=== PATIENT | male | born 1965 | race Caucasian/White ===

== ENCOUNTER → 2017-07-29 | Outpatient (CLI) | payer MEDICARE, BC ==
[2017-07-29 13:35] LABS: Appearance,Urine Clear (Clear); Bilirubin,Urine Negative (Negative); Blood,Urine Negative (Negative); Color,Urine Yellow; Glucose,Urine (UA) 4+ (Negative); HCT 41.9 % (39.0-53.0); HGB 13.8 gm/dL (13.0-17.5); Ketones,Urine Negative (Negative); Leukocyte Esterase,Urine Negative (Negative); MCH 27.5 pg (25.0-35.0); MCV 83.3 fL (80.0-100.0); Mean Platelet Volume 7.1; Nitrite,Urine Negative (Negative); PH, Urine 5.5 (5.0-8.0); Platelet Count 468 k/uL (150-450); Protein,Urine Negative (Negative); RBC 5.03 m/uL (4.30-5.90); RDW 15.4 % (11.5-15.5); Specific Gravity,Urine 1.017 (1.001-1.035); Urobilinogen,Urine <2.0 mg/dL (<2.0); WBC 6.7 k/uL (3.8-10.6)
[2017-07-29 13:54] LABS: Eosinophils # (M) 0.27 k/uL (0-0.7); Lymphocytes # (M) 2.95 k/uL (1.0-4.8); Monocytes # (M) 0.87 k/uL (0-1.0); Neutrophils # (M) 2.61 k/uL (1.3-7.7); Neutrophils % (M) 39 %; Nucleated Red Blood Cells 0 /100 WBC (0-0); Total Cells Counted 100
[2017-07-29 13:58] LABS: Anion Gap 10 mmol/L; Blood Urea Nitrogen 13 mg/dL (9-20); Carbon Dioxide 32 mmol/L (22-30); Chloride 101 mmol/L (98-107); Glucose 162 mg/dL (74-99); Potassium 4.6 mmol/L (3.5-5.1); Sodium 143 mmol/L (137-145)
== END ==
LOC: LABPAT 12:41
PROVIDERS: ATTEND Surgery
DX: Z01.812 Encounter for preprocedural laboratory examination (principal); I73.9 Peripheral vascular disease, unspecified
CPT/HCPCS: 36415; 80051; 81003; 82565; 82947; 84520; 85025

== ENCOUNTER 2017-08-11 07:40 | Day surgery (SDC) | payer MEDICARE, BC ==
[2017-08-10 10:37] VITALS: BMI 32.6
[~2017-08-11 07:40] MED LIST: ALPRAZolam 0.25 MG TAB PO PRN; ASPIRIN 325 MG TAB PO STA
[2017-08-11 08:19] VITALS: TEMP 97.9
[2017-08-11 08:32] LABS: Glucose,Whole Blood 167 mg/dL (75-99)
[2017-08-11] MEDS ORDERED: IV FLUID CONTINUATION 1,000 ML IV ONE (08:48)
--- NOTE | 2017-08-11 08:48 | P.HPIHPCON ---
History of Present Illness H&P Date: 08/11/17 Chief Complaint: Bilateral lower extremity pain 51-year-old gentleman initially presented to my office with complaints of bilateral lower extremity pain with ambulation. States she can only walk approximately 100 feet before getting severe pain in both calf areas. He denies any rest pain. He underwent arterial Doppler with ABIs which were 0.5 on the right and 0.38 on the left. He presents today for aortogram with runoff. He denies any fevers, chills, chest pain or shortness of breath. Consent for Procedure: I have explained the operation/procedure to the patient, including the risks, benefits, side effects, alternative therapies (including not receiving the proposed treatment or service), the likelihood of the patient achieving his/her goals, and potential recuperation problems for the procedure/sedation/analgesia , as well as any blood products, if indicated. I also explained to the patient the risks, benefits and side effects of the alternatives, as well as the risks related to not receiving the proposed procedure, care, treatment, or services. - Review of Systems Comment: Negative unless mentioned in HPI past medical history. Past Medical History Past Medical History: Asthma, Coronary Artery Disease (CAD), Cancer, Chest Pain / Angina, Diabetes Mellitus, Hyperlipidemia, Hypertension, Osteoarthritis (OA), Pneumonia, Sleep Apnea/CPAP/BIPAP, Thyroid Disorder, Vascular Disorder Additional Past Medical History / Comment(s): CML-chronic anemia, immmunosuppressed, not using CPAP, carpal tunnel bilaterally, previous toe on each foot fx.He has chronic dry mucosa from the kgipp-hseaba-qbul disease especially of the eyes and oral cavity. This necessitated the utilization special contacts and removal of his teeth. History of Any Multi-Drug Resistant Organisms: None Reported Past Surgical History: Heart Catheterization With Stent, Joint Replacement Additional Past Surgical History / Comment(s): BONE MARROW TRANSPLANT 2007, L KNEE scope & REPLACEMENT, SEPTAL SURG, BMTs bilateral ears, hemorrhoidectomy, colonoscopy, vasectomy Past Anesthesia/Blood Transfusion Reactions: No Reported Reaction Additional Past Anesthesia/Blood Transfusion Reaction / Comment(s): Pt has received blood without reaction. Date of Last Stent Placement:: 2007 Smoking Status: Former smoker - Past Family History Father Family Medical History: Coronary Artery Disease (CAD) Additional Family Medical History / Comment(s): Father had triple bypass. He committed suicide. Mother Family Medical History: Dementia Additional Family Medical History / Comment(s): Mother at age 72yrs. Medications and Allergies Home Medications Medication Instructions Recorded Confirmed Type Aspirin 81 mg PO DAILY 10/27/13 08/11/17 History Fenofibrate Nanocrystallized 145 mg PO HS 10/27/13 08/10/17 History [Tricor] lamoTRIgine [LaMICtal] 25 mg PO HS 10/27/13 08/10/17 History metFORMIN HCL 1,000 mg PO BID 10/27/13 08/11/17 History Atorvastatin [Lipitor] 40 mg PO HS 08/10/17 08/10/17 History Insulin Glargine/Lixisenatide 48 units SQ QAM 08/10/17 08/11/17 History [Soliqua 100 Unit-33 Mcg/ml Pen] rOPINIRole HCL [Requip] 0.5 mg PO HS 08/10/17 08/10/17 History Allergies Allergy/AdvReac Type Severity Reaction Status Date / Time Penicillins Allergy Unknown Verified 08/10/17 10:31 Childhood Surgical - Exam Vital Signs Temp Pulse Resp BP Pulse Ox 97.9 F 85 20 128/62 96 08/11/17 08:10 08/11/17 08:10 08/11/17 08:10 08/11/17 08:10 08/11/17 08:10 - General well developed, well nourished, no distress - Eyes normal ocular movement - ENT normal pinna, no congestion - Neck no masses, no bruits - Respiratory normal expansion - Cardiovascular Rhythm: regular - Abdomen Abdomen: soft, non tender - Integumentary no rash - Neurologic normal coordination - Musculoskeletal normal posture - Psychiatric oriented to time, oriented to person, oriented to place, speech is normal Palpable femoral pulses bilaterally. Nonpalpable DP, PT pulses bilaterally. Results - Labs Abnormal Lab Results - Last 24 Hours (Table) 08/11/17 Range/Units 08:24 POC Glucose (mg/dL) 167 H (75-99) mg/dL Assessment and Plan Assessment: Bilateral lower extremity disabling claudication Cordell classification 3 Plan: Aortogram with runoff Time with Patient: Less than 30
[2017-08-11] MEDS: MIDAZOLAM 2 MG/2 ML VIAL IV ONE ×2 (08:57→09:07)
[2017-08-11] MEDS ORDERED: fentaNYL (PF) 50 MCG/ML 2 ML AMP IV ONE (09:00)
[2017-08-11] MEDS ORDERED: LIDOCAINE 2% INJ 20 MG/ML SQ ONE ×2 (09:01→09:03)
[2017-08-11] MEDS ORDERED: IOPAMIDOL-250 100ML BTL INTRAARTER ONE (09:19)
--- NOTE | 2017-08-11 09:39 | P.OP ---
Date of Procedure: 08/11/17 Preoperative Diagnosis: Bilateral lower extremity disabling claudication Johnson classification 3 Postoperative Diagnosis: Right superficial femoral artery focal occlusion. 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 Procedure(s) Performed: Aortogram with bilateral lower extremity runoff via the right common femoral artery. Right common femoral artery access under ultrasound guidance. Anesthesia: local, other (Moderate sedation with fentanyl and Versed.) Surgeon: Alber Fall Estimated Blood Loss (ml): 5 Pathology: none sent Condition: stable Disposition: same day Indications for Procedure: 51-year-old gentleman who presented to my office with complaints of bilateral lower extremity pain especially with ambulation. Patient states he only can ambulate 100 feet without severe pain in bilateral calf regions. He had ABIs of 0.50 on the right and 0.38 on the left. He presents for aortogram with runoff. Operative Findings: Aorta: Patent with out hemodynamic significant stenosis. Bilateral renal arteries are patent Iliacs: Bilateral common, external and internal iliac vessels were patent without significant stenosis or atherosclerotic disease. Femorals: Right profundus with approximately 60% stenosis just distal to the takeoff. Common femoral artery is patent with mild after scrubbing disease. Superficial femoral artery has multiple areas of stenosis with chronic total occlusion of approximately 5 mm at the midportion of the SFA. Left common femoral artery is patent with minimal atherosclerotic disease. The profundus is patent with minimal disease without significant narrowing. The left SFA has multiple areas of stenosis with chronic total occlusion noted at the proximal SFA extending down distal to the Carlos's canal. He has hardware noted in his left knee which is difficult to ascertain arterial disease of the popliteal vessel. Popliteal: Right popliteal artery is patent with minimal evidence of atherosclerotic disease. No significant stenosis. Left popliteal artery is difficult to visualize due to hardware but appears to be patent with possible area of stenosis just behind the knee. Tibials: Bilateral three-vessel takeoff noted With two-vessel runoff to the ankle bilaterally. The vessels appeared to have minimal atherosclerotic disease. Description of Procedure: After written informed consent was obtained the patient all risks benefits competitions were described the patient was brought to the Gastroenterology Professor and laid in a supine position. The area of the groins were prepped and draped in usual sterile fashion. Timeout was performed in normal fashion. Patient wasn't given Versed and fentanyl for sedation. Utilizing ultrasound the right common femoral artery was visualized and shown to be patent. It was then cannulated with a multipurpose needle and utilizing Seldinger technique a 5-Azerbaijani sheath was placed. Glidewire was then placed into the aorta followed by pigtail catheter and aortogram was obtained. The pigtail catheter was then withdrawn to the bifurcation and runoffs were obtained at that time. Guidewire was then placed pigtail and guidewire were then removed. Sheath was removed and pressure was placed for hemostasis. Hemostasis was assured and dressings were placed. The patient tolerated procedure well and was sent to PACU for recovery Plan - Discharge Summary Discharge Rx Participant: No New Discharge Prescriptions: No Action lamoTRIgine [LaMICtal] 25 mg PO HS Aspirin 81 mg PO DAILY Fenofibrate Nanocrystallized [Tricor] 145 mg PO HS metFORMIN HCL 1,000 mg PO BID Atorvastatin [Lipitor] 40 mg PO HS rOPINIRole HCL [Requip] 0.5 mg PO HS Insulin Glargine/Lixisenatide [Soliqua 100 Unit-33 Mcg/ml Pen] 48 units SQ QAM Discharge Medication List Aspirin 81 mg PO DAILY 10/27/13 [History] Fenofibrate Nanocrystallized [Tricor] 145 mg PO HS 10/27/13 [History] lamoTRIgine [LaMICtal] 25 mg PO HS 10/27/13 [History] metFORMIN HCL 1,000 mg PO BID 10/27/13 [History] Atorvastatin [Lipitor] 40 mg PO HS 08/10/17 [History] Insulin Glargine/Lixisenatide [Soliqua 100 Unit-33 Mcg/ml Pen] 48 units SQ QAM 08/10/17 [History] rOPINIRole HCL [Requip] 0.5 mg PO HS 08/10/17 [History] Follow up Appointment(s)/Referral(s): Alber Fall DO [STAFF PHYSICIAN] - 1 Week Discharge Disposition: HOME SELF-CARE
[2017-08-11] MEDS ORDERED: SODIUM CHLORIDE 0.9% 1,000 ML IV SCH (10:00)
--- NOTE | 2017-08-11 10:47 | IR ---
Fluoroscopy HISTORY: Pain in left leg 60 seconds fluoroscopy time supplied to the referring clinician. 64 intraoperative C-arm images docu ment the procedure. See dictated report from vascular surgery.
[2017-08-11 12:59] LABS: Glucose,Whole Blood 193 mg/dL (75-99)
[2017-08-11 16:35] VITALS: BP 130/58; PULSE 80; RESP 20
== END 2017-08-11 16:00 | disposition home or self-care (01) ==
LOC: CATHCVL 07:40
PROVIDERS: ATTEND Surgery
DX: I70.213 Atherosclerosis of native arteries of extremities with intermittent claudication, bilateral legs (principal); I70.92 Chronic total occlusion of artery of the extremities; E11.51 Type 2 diabetes mellitus with diabetic peripheral angiopathy without gangrene; Z79.4 Long term (current) use of insulin; I25.10 Atherosclerotic heart disease of native coronary artery without angina pectoris; I10 Essential (primary) hypertension; Z87.891 Personal history of nicotine dependence; E78.5 Hyperlipidemia, unspecified; M19.90 Unspecified osteoarthritis, unspecified site; G47.30 Sleep apnea, unspecified; E07.9 Disorder of thyroid, unspecified; Z95.5 Presence of coronary angioplasty implant and graft; Z94.81 Bone marrow transplant status; Z79.82 Long term (current) use of aspirin; Z79.899 Other long term (current) drug therapy; Z88.0 Allergy status to penicillin
CPT/HCPCS: 36200; 75625; 75716; 76937; C1769 ×3; C1894; J2001; J2250; J3010; Q9966; 75630

== ENCOUNTER 2017-08-25 07:38 | Day surgery (SDC) | payer MEDICARE, BC ==
[~2017-08-25 07:38] MED LIST changes: +DEXAMETHASONE SOD PHOSPHATE 10 MG/ML 1 ML VIAL IV ONE; +LIDOCAINE 1% 20 ML VIAL (10MG/ML) FOR IV START INTRADERMA PRN; +MIDAZOLAM 2 MG/2 ML VIAL IV PRN; +SCOPOLAMINE 1.5MG/72HR PATCH TRANSDERM ONE; +SODIUM CHLORIDE 0.9% 1,000 ML in EMPTY BAG 1 BAG IV ONE; +fentaNYL (PF) 50 MCG/ML 2 ML AMP IV PRN
[2017-08-25 08:04] LABS: Glucose,Whole Blood 131 mg/dL (75-99)
[2017-08-25 08:15] VITALS: RESP 16
[2017-08-25] MEDS ORDERED: MIDAZOLAM 2 MG/2 ML VIAL IVP ONE ×2 (08:50→09:44)
[2017-08-25] MEDS: fentaNYL (PF) 50 MCG/ML 2 ML AMP IVP ONE ×2 (08:50→09:46)
[2017-08-25] MEDS ORDERED: HEPARIN SODIUM 1,000 UN/ML (10ML VL) IV ONE (09:01)
[2017-08-25] MEDS ORDERED: IOPAMIDOL-250 50ML BTL INTRAARTER ONE (10:28)
[2017-08-25] MEDS ORDERED: IOPAMIDOL-250 100ML BTL INTRAARTER ONE (10:30)
[2017-08-25] MEDS ORDERED: CLOPIDOGREL 75 MG TAB PO ONE (10:45)
[2017-08-25] MEDS ORDERED: MORPHINE SULF 5MG/10ML VL IVP ONE (10:48)
--- NOTE | 2017-08-25 10:59 | P.OP ---
Date of Procedure: 08/25/17 Preoperative Diagnosis: Bilateral lower extremity disabling claudication- Cidra classification 3. 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 Resolved left SFA occlusion. Left popliteal artery stenosis Procedure(s) Performed: Left lower extremity selective angiogram with percutaneous superficial femoral artery atherectomy and percutaneous transluminal balloon angioplasty. Left popliteal artery percutaneous transluminal balloon angioplasty. Ultrasound-guided access of the right common femoral artery Anesthesia: local (With moderate conscious sedation- 106 min) Surgeon: Alber Fall Estimated Blood Loss (ml): 20 IV fluids (ml): 150 Pathology: none sent Condition: stable Disposition: observation Indications for Procedure: 51-year-old gentleman who originally presented to the office with complaints of bilateral lower extremity pain and fatigue with ambulation. He stated he can only walk approximately 100 feet without having severe pain in his calf as well as fatigue in his legs. He had an arterial Doppler which demonstrated ABIs of 0.38 on the left. He underwent angiogram which demonstrated bilateral superficial femoral artery occlusive disease with the left worse than the right. He had a left chronic total occlusion with popliteal artery stenosis noted. He presents today for endovascular intervention. 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 The area of the groins were prepped and draped in usual sterile fashion. Timeout was performed in normal fashion. Utilizing ultrasound the right common femoral artery was visualized and shown to be patent with minimal calcification. A multipurpose needle was then utilized for access pulsatile blood flow was visualized. Using Seldinger technique a 5- Ghanaian sheath was placed. Heparin was administered followed with serial CTs for appropriate heparinization. Glidewire advantage wire was then placed followed by a RBI catheter and the left common iliac artery was accessed. Wire was then placed into the superficial femoral artery and the catheter was removed. Sheath was then removed and replaced with a 6-Ghanaian up and over RAABE sheath. Angiogram was then obtained of the left lower extremity demonstrating chronic total occlusion. Utilizing the wire and a 035 quick cross catheter the lesion was crossed. Once crossed into gram was obtained demonstrating good intraluminal crossing. A 5mm spider filter was then placed followed by the Hawk one M device. Multiple passes were then performed at the superficial femoral artery with good removal of plaque. Angiograms were obtained demonstrating improvement of the lumen. A 6 x 150 mm impacts drug- eluting balloon was then chosen to be deployed and was placed across the lesion. This was left up for approximately 3 minutes. Angiogram was then obtained after removal of the balloon just demonstrating complete resolution of the NUT PROCESSING SUPERVISOR. There was some area of small dissection at the distal portion and therefore the balloon was placed over that area and prolonged low balloon insufflation was then performed for approximately 4 minutes. Angiogram was once again obtained demonstrating no evidence of dissection with good brisk flow throughout the SFA. The popliteal artery was then interrogated and appeared to be stenotic approximately 80%. Wire was placed across of the this lesion after the spider was already removed. Percutaneous transluminal balloon angioplasty was then performed with a 6 mm balloon at 2 brenda. This was followed by a 5 x 120 mm impact drug-eluting balloon. Angiogram demonstrated good resolution of the popliteal stenosis with residual of less than 30%. Final angiogram was obtained demonstrating brisk flow throughout the entirety of the SFA and popliteal arteries with 2 vessels to the ankle with the popliteal artery to the foot. All catheters and guidewires were then removed. Pressure was then placed for hemostasis after removal of the sheath. Hemostasis was assured and dressings were placed. Patient all procedure well was sent to PACU for recovery. Patient had multiphasic signal at the PT with faint palpable pulse noted.
[2017-08-25 11:35] LABS: Glucose,Whole Blood 139 mg/dL (75-99)
[2017-08-25] MEDS: LACTATED RINGERS 1,000 ML IV SCH (11:39)
[2017-08-25] MEDS: SODIUM CHLORIDE 0.9% 1,000 ML IV SCH ×2 (11:40→21:18)
[2017-08-25] MEDS: HYDROmorphone 0.5 MG/0.5 ML SYRINGE IVP PRN ×3 (11:40→18:21)
[2017-08-25 13:08] VITALS: BMI 32.5
--- NOTE | 2017-08-25 13:33 | IR ---
Fluoroscopy HISTORY: Pain in left leg 18 minutes fluoroscopy time supplied to the referring clinician. 497 intraoperative C-arm images doc ument the procedure. See dictated report from vascular surgery.
--- NOTE | 2017-08-25 14:26 | P.CONS ---
History of Present Illness - Reason for Consult Consult date: 08/25/17 Medical management Requesting physician: Alber Fall - Chief Complaint Left femoral artery chronic total occlusion with popliteal artery stenosis - History of Present Illness This is a 51-year-old male, patient of Dr. Sweeney. 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 We have been consulted for medical management. Patient presents to the hospital for elective surgery due to bilateral lower extremity disabling claudication with left superficial femoral artery chronic total occlusion with popliteal artery stenosis approximately 80%. Patient underwent a left lower extremity angiogram with percutaneous superficial femoral artery arthrectomy and percutaneous transluminal balloon angioplasty. Also left popliteal artery percutaneous transluminal balloon angioplasty. Patient tolerated surgery well. Patient did have evidence of bradycardia with heart rate into the 30s as well as cardiac pauses. Cardiology will be consulted. These episodes did occur after a coughing episode and during an episode of hiccuping. Patient denies any chest pain or heart palpitations. Denies any nausea or vomiting. Denies any bowel movement changes or urinary symptoms. He does have a remote history of smoking however has been several years since he smoked and at that time he was just a social smoker. Review of Systems Please refer to HPI otherwise unremarkable Past Medical History Past Medical History: Asthma, Coronary Artery Disease (CAD), Cancer, Chest Pain / Angina, Diabetes Mellitus, Hyperlipidemia, Hypertension, Osteoarthritis (OA), Pneumonia, Sleep Apnea/CPAP/BIPAP, Thyroid Disorder, Vascular Disorder Additional Past Medical History / Comment(s): CML-chronic anemia, immmunosuppressed, not using CPAP, carpal tunnel bilaterally, previous toe on each foot fx.He has chronic dry mucosa from the eujpa-fnobyl-cekc disease especially of the eyes and oral cavity. This necessitated the utilization special contacts and removal of his teeth. History of Any Multi-Drug Resistant Organisms: None Reported Past Surgical History: Heart Catheterization With Stent, Joint Replacement Additional Past Surgical History / Comment(s): BONE MARROW TRANSPLANT 2006, L KNEE scope & REPLACEMENT, SEPTAL SURG, BMTs bilateral ears, hemorrhoidectomy, colonoscopy, vasectomy, recent aortogram, atherectomy with ballon angioplasty . Past Anesthesia/Blood Transfusion Reactions: No Reported Reaction Additional Past Anesthesia/Blood Transfusion Reaction / Comm: Pt has received blood without reaction. Date of Last Stent Placement:: 2007 Past Psychological History: Anxiety Additional Psychological History / Comment(s): Pt resides with his spouse and 2 grown children. He is independent. He uses no assistive device. He has DEDE and his CPAP is broken so he is not using it at this time. He drives. 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 Was a tobacco smoker briefly more than 20 years ago. No significant alcohol use. No recreational drugs use. No experience. No recent travel history. No animal exposures. Smoking Status: Former smoker Past Alcohol Use History: Rare Additional Past Alcohol Use History / Comment(s): Pt states he has not smoked for 25 yrs and when he did it was only on occasion-socially. Past Drug Use History: None Reported - Past Family History Father Family Medical History: Coronary Artery Disease (CAD) Additional Family Medical History / Comment(s): Father had triple bypass. He committed suicide. Mother Family Medical History: Dementia Additional Family Medical History / Comment(s): Mother at age 72yrs. Medications and Allergies Home Medications Medication Instructions Recorded Confirmed Type Aspirin 81 mg PO DAILY 10/27/13 08/25/17 History Fenofibrate Nanocrystallized 145 mg PO HS 10/27/13 08/25/17 History [Tricor] lamoTRIgine [LaMICtal] 25 mg PO HS 10/27/13 08/25/17 History Atorvastatin [Lipitor] 40 mg PO HS 08/10/17 08/25/17 History Insulin Glargine/Lixisenatide 48 units SQ QAM 08/10/17 08/25/17 History [Soliqua 100 Unit-33 Mcg/ml Pen] rOPINIRole HCL [Requip] 0.5 mg PO HS 08/10/17 08/25/17 History metFORMIN HCL 1,000 mg PO BID #0 08/11/17 08/25/17 Rx Allergies Allergy/AdvReac Type Severity Reaction Status Date / Time Penicillins Allergy Unknown Verified 08/21/17 09:00 Childhood Physical Exam Vitals: Vital Signs Temp Pulse Pulse Resp BP BP BP 08/25/17 13:44 88 16 132/59 08/25/17 12:55 84 16 08/25/17 12:44 84 16 135/57 08/25/17 12:14 86 16 141/67 08/25/17 11:44 64 16 145/74 08/25/17 11:29 65 16 140/69 08/25/17 11:14 72 16 133/60 08/25/17 10:59 97 F L 70 16 128/56 08/25/17 08:10 97.8 F 86 16 124/59 129/75 Pulse Ox 08/25/17 13:44 97 08/25/17 12:55 08/25/17 12:44 95 08/25/17 12:14 95 08/25/17 11:44 96 08/25/17 11:29 97 08/25/17 11:14 96 08/25/17 10:59 96 08/25/17 08:10 95 Intake and Output 08/24/17 08/25/17 08/25/17 22:59 06:59 14:59 Intake Total 440 Output Total 700 Balance -260 Intake: IV 200 Oral 240 Output: Urine 700 Other: Weight 99.79 kg Head normocephalic Neck supple Lungs clear to auscultation bilaterally no wheezing or crackles Heart regular rate and rhythm S1-S2, no rub or gallop Abdomen is soft nontender nondistended positive bowel sounds no hepatosplenomegaly Extremities no edema. Right groin dressing clean dry and intact. Post tibial pulse noted bilaterally Neuro alert and orientated to 3 Results Labs: Abnormal Lab Results - Last 24 Hours (Table) 08/25/17 08/25/17 Range/Units 08:00 11:33 POC Glucose (mg/dL) 131 H 139 H (75-99) mg/dL Assessment and Plan Assessment: 1. 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 Also a left popliteal artery percutaneous transluminal balloon angioplasty. Dr. Fall has started patient on Plavix 75 mg daily, aspirin 81 mg daily and increase Lipitor to 80 mg at bedtime pain is tolerable. Continue his current pain medication 2. Bradycardia and cardiac pauses: Consult cardiology. 3. Diabetes mellitus type 2: Metformin on hold. Patient's Soliqua is nonformulary. We'll place patient on Levemir 30 units in the morning with sliding scale coverage 4. History of CML with bone marrow transplant in 2006 and previous history of chemotherapy 5. 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 Hyperlipidemia 7. Mood disorder continue Lamictal 8. History of coronary artery disease with previous cardiac stents 9. Hypothyroidism: Currently not on thyroid medication. Patient stopped taking his thyroid medication about a year ago on his own. Check thyroid level Thank you for this consultation. Restart patient's home medications. We'll check routine labs in the morning. Consult cardiology for cardiac pauses Time with Patient: Greater than 30 (Greater than 60% of the total time spent in counseling and coordination of care. I performed an examination of the patient and discussed their management with the physician Communication Signals Intelligence. I have reviewed the Physician Communication Signals Intelligence's notes and agree with the documented findings and plan of care)
[2017-08-25 16:19] LABS: Glucose,Whole Blood 153 mg/dL (75-99)
[2017-08-25] MEDS: INSULIN ASPART 100 UNIT/ML 1 ML 10 ML VIAL SQ SCH ×2 (16:30→21:17)
[2017-08-25 20:58] LABS: Glucose,Whole Blood 201 mg/dL (75-99)
[2017-08-25] MEDS ORDERED: ATORVASTATIN 80 MG TAB PO SCH (21:00)
[2017-08-25] MEDS ORDERED: lamoTRIgine 25 MG TAB PO SCH (21:00)
[2017-08-25] MEDS ORDERED: FENOFIBRATE 160 MG TAB PO SCH (21:00)
[2017-08-25] MEDS ORDERED: CALCIUM CARBONATE 500 MG CHEWABLE PO PRN (21:32)
[2017-08-25] MEDS ORDERED: ACETAMINOPHEN TAB 325 MG TAB PO PRN (21:33)
[2017-08-26 04:14] LABS: Hemoglobin A1C 8.9 % (4.0-6.0)
[2017-08-26] MEDS: HYDROcodone/APAP 5-325MG 1 EACH TAB PO PRN ×2 (05:21→13:27)
[2017-08-26] MEDS: LACTATED RINGERS 1,000 ML IV SCH (05:24)
[2017-08-26 05:51] LABS: Glucose,Whole Blood 148 mg/dL (75-99)
[2017-08-26] MEDS: INSULIN ASPART 100 UNIT/ML 1 ML 10 ML VIAL SQ SCH ×2 (06:29→12:32)
[2017-08-26] MEDS ORDERED: INSULIN GLARGINE SQ SCH (09:00)
[2017-08-26] MEDS ORDERED: [UNRECOGNIZED DRUG - OTHER] SQ SCH (09:00)
[2017-08-26] MEDS ORDERED: ASPIRIN 81 MG PO SCH (09:00)
[2017-08-26] MEDS ORDERED: LIXISENATIDE SQ SCH (09:00)
[2017-08-26] MEDS ORDERED: CLOPIDOGREL 75 MG TAB PO SCH (09:00)
[2017-08-26] MEDS ORDERED: INSULIN DETEMIR 100 UNIT/ML 10 ML VIAL SQ SCH (09:00)
[2017-08-26] MEDS ORDERED: ASPIRIN 325 MG TAB PO SCH (09:00)
[2017-08-26] MEDS ORDERED: LOSARTAN 25 MG TAB PO SCH (10:15)
--- NOTE | 2017-08-26 10:46 | P.PN ---
Subjective Progress Note Date: 08/26/17 This is a 51-year-old male, patient of Dr. Sweeney. 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 We have been consulted for medical management. Patient presents to the hospital for elective surgery due to bilateral lower extremity disabling claudication with left superficial femoral artery chronic total occlusion with popliteal artery stenosis approximately 80%. Patient underwent a left lower extremity angiogram with percutaneous superficial femoral artery arthrectomy and percutaneous transluminal balloon angioplasty. Also left popliteal artery percutaneous transluminal balloon angioplasty. Patient tolerated surgery well. Patient did have evidence of bradycardia with heart rate into the 30s as well as cardiac pauses. Cardiology will be consulted. These episodes did occur after a coughing episode and during an episode of hiccuping. Patient denies any chest pain or heart palpitations. Denies any nausea or vomiting. Denies any bowel movement changes or urinary symptoms. He does have a remote history of smoking however has been several years since he smoked and at that time he was just a social smoker. On 08/26/2017 patient is alert and oriented 3 he is complaining of pain in his lower extremity otherwise he denies any complaints there is no headache no dizziness no fever or chills no chest pain no shortness of breath or palpitation , no cough, no nausea or vomiting no abdominal pain, no diarrhea and no urinary symptoms. He was evaluated by cardiology, he had an episode of cardiac pauses while he was coughing after he choked on food, otherwise no cardiac pauses, no further cardiology follow-up is recommended by. Objective - Vital Signs Vital signs: Vital Signs Temp 98 F 08/26/17 08:00 Pulse 84 08/26/17 08:00 Resp 16 08/26/17 08:00 BP 130/69 08/26/17 08:00 Pulse Ox 95 08/26/17 08:00 Intake & Output 08/25/17 08/26/17 08/26/17 18:59 06:59 18:59 Intake Total 800 360 360 Output Total 1200 900 Balance -400 -540 360 Weight 99.79 kg 99.9 kg Intake: IV 200 Oral 600 360 360 Output: Urine 1200 900 Other: Voiding Method Toilet Toilet # Voids 1 1 - Exam Head normocephalic and atraumatic Neck supple no JVD Lungs clear to auscultation bilaterally no wheezing or crackles Heart regular rate and rhythm S1-S2, no rub or gallop Abdomen is soft nontender nondistended positive bowel sounds no hepatosplenomegaly Extremities no edema. Right groin dressing clean dry and intact. Post tibial pulse noted bilaterally Neuro alert and orientated to 3 - Labs Labs: Abnormal Lab Results - Last 24 Hours (Table) 08/25/17 08/25/17 08/25/17 Range/Units 11:33 15:34 16:17 POC Glucose (mg/dL) 139 H 153 H (75-99) mg/dL Hemoglobin A1c 8.9 H (4.0-6.0) % 08/25/17 08/26/17 Range/Units 20:57 05:50 POC Glucose (mg/dL) 201 H 148 H (75-99) mg/dL Hemoglobin A1c (4.0-6.0) % Assessment and Plan Plan: 1. 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 Also a left popliteal artery percutaneous transluminal balloon angioplasty. Dr. Fall has started patient on Plavix 75 mg daily, aspirin 81 mg daily and increase Lipitor to 80 mg at bedtime pain is tolerable. Continue his current pain medication 2. Bradycardia and cardiac pauses: Consult cardiology. 3. Diabetes mellitus type 2: Metformin on hold. Patient's Soliqua is nonformulary. We'll place patient on Levemir 30 units in the morning with sliding scale coverage 4. History of CML with bone marrow transplant in 2006 and previous history of chemotherapy 5. 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 Hyperlipidemia 7. Mood disorder continue Lamictal 8. History of coronary artery disease with previous cardiac stents 9. Hypothyroidism: Currently not on thyroid medication. Patient stopped taking his thyroid medication about a year ago on his own. Check thyroid level. TSH is normal at this time no need for intervention. Patient is medically stable for discharge.
[2017-08-26 11:18] LABS: Glucose,Whole Blood 166 mg/dL (75-99)
[2017-08-26] MEDS: SODIUM CHLORIDE 0.9% 1,000 ML IV SCH (12:32)
[2017-08-26 12:37] VITALS: BP 130/62; PULSE 81; TEMP 98.2
--- NOTE | 2017-08-26 18:07 | CONS ---
CONSULTATION This is a 51-year-old gentleman with a history of type 2 diabetes mellitus, hypertension and hyperlipidemia who underwent underwent a left lower extremity selective angiography with a percutaneous atherectomy and balloon angioplasty as well as a popliteal balloon angioplasty performed by Dr. Fall. This gentleman has a left superficial femoral [employer] and a left lower extremity disabling claudication. Following the procedure while he was up here on the floor, he had an issue with when he was coughing and hiccuping of pauses of up to 3 seconds and I was asked to see him in this regard. The patient had did not have any symptoms and indicates to me that whenever he takes any solid foods that are thicker, he has a choking sensation, but has never passed out. He was being monitored when he had a choking spell and then some hiccups and both of these were associated with pauses of up to 3 seconds. He did not have symptoms. He does not have any history of sleep apnea. He does have history of diabetes and has CAD with a previous PCI in 2007, the details of which are not available. At the time of my evaluation, he is resting comfortably without symptoms. PAST MEDICAL HISTORY: 1. CAD with a history of prior PCI 2007, details unclear. 2. History of peripheral artery disease, status post left superficial femoral and popliteal PTCA and atherectomy by Dr. Fall. 3. History of type 2 diabetes mellitus. 4. Hyperlipidemia. 5. History of sleep apnea as well, but I am not sure if he is wearing the mask or not. 6. He has history of some orthopedic surgery as well. SOCIAL HISTORY: Patient has quit smoking more than 10 years ago. He does not consume alcohol on a regular basis. MEDICATIONS AT HOME: Include: 1. Aspirin 81 mg daily. 2. Fenofibrate. 3. Atorvastatin 40 mg daily. 4. Insulin glargine and metformin 1000 mg b.i.d. 5. Atorvastatin 40 mg daily. ALLERGIES: PENICILLIN. REVIEW OF SYSTEMS: Unremarkable other than the above-mentioned facts. EXAMINATION: His blood pressure is 130/70, pulse is 80 per minute, regular. HEENT: Unremarkable. Fundus was not examined by me. NECK: Supple. No JVD. I do not hear a carotid bruit. There is no thyromegaly. Heart reveals S1, S2 heard normally without a rub, murmur or gallop. Lungs are clear. Abdomen is soft. Lower extremities reveal diminished pulses. Central nervous system is normal. Rhythm strip review suggests pauses, but these are related to coughing bouts and hiccups. IMPRESSION: 1. Cough related bradycardia and no symptoms of syncope. 2. Coronary artery disease with prior percutaneous intervention. 3. Type 2 diabetes mellitus. 4. Peripheral artery disease status post left lower extremity atherectomy and percutaneous transluminal coronary angioplasty of superficial left superficial femoral artery and percutaneous transluminal coronary angioplasty of left popliteal artery. RECOMMENDATIONS: I am recommending that he can be discharged on current medications and he is not on any rate lowering agents and he should not be. I am recommending a thyroid function test to rule out any hypothyroidism and we will do a 24 hour DCG prior to discharge and I will see him in the office in 2 weeks. Advised to call me for the questions, concerns or problems. Thank you very much for the consult. MMASADL / IJN: [id number] /
== END 2017-08-26 15:27 | disposition home or self-care (01) ==
LOC: CATHCVL 07:38 → 6SEL 10:38 → CATHCVL 16:22 → 6SEL 16:22 → CATHCVL 08-26 15:27
PROVIDERS: ATTEND Surgery
DX: I70.213 Atherosclerosis of native arteries of extremities with intermittent claudication, bilateral legs (principal); I70.92 Chronic total occlusion of artery of the extremities; I10 Essential (primary) hypertension; E78.5 Hyperlipidemia, unspecified; E11.51 Type 2 diabetes mellitus with diabetic peripheral angiopathy without gangrene; Z79.4 Long term (current) use of insulin; Z87.891 Personal history of nicotine dependence; C92.10 Chronic myeloid leukemia, BCR/ABL-positive, not having achieved remission; D89.813 Graft-versus-host disease, unspecified; Z94.81 Bone marrow transplant status; F39 Unspecified mood [affective] disorder; Z92.21 Personal history of antineoplastic chemotherapy; I25.10 Atherosclerotic heart disease of native coronary artery without angina pectoris; Z95.5 Presence of coronary angioplasty implant and graft; E03.9 Hypothyroidism, unspecified; G47.30 Sleep apnea, unspecified; Z79.82 Long term (current) use of aspirin; Z79.899 Other long term (current) drug therapy; Z88.0 Allergy status to penicillin
CPT/HCPCS: 93225; 93226; 37224; 85347; 84443; 83036; C1894 ×2; C1769 ×3; C1887; C1714; C1884; C2623 ×2; J2250; J3010; J1644; J1170; Q9966 ×2; J2270

== ENCOUNTER 2017-09-20 23:03 | Inpatient (IN) | payer BC, MEDICARE ==
[2017-09-20] MEDS ORDERED: ASPIRIN 325 MG TAB PO STA (23:33)
[2017-09-20] MEDS ORDERED: IPRATROPIUM-ALBUTEROL 3 ML NEB INHALATION STA (23:33)
[2017-09-20] MEDS ORDERED: ONDANSETRON ODT 4 MG TAB PO STA (23:33)
[2017-09-20] MEDS ORDERED: MORPHINE SULFATE 2 MG/ML SYRINGE IVP STA (23:33)
[2017-09-20] MEDS ORDERED: methylPREDNISolone SOD SUCCI 125 MG/2 ML VIAL IV STA (23:33)
[2017-09-20] MEDS ORDERED: SODIUM CHLORIDE 0.9% 1,000 ML IV ONE (23:35)
--- NOTE | 2017-09-20 23:38 | ED ---
General Adult HPI - General Source: patient, family Mode of arrival: wheelchair Limitations: no limitations <Yue Solis - Last Filed: 09/21/17 00:39> <Nathanael Haskins - Last Filed: 09/21/17 03:38> - General Chief complaint: Shortness of Breath Stated complaint: Fever, STIVEN Time Seen by Provider: 09/20/17 23:27 - History of Present Illness Initial comments: 52-year-old male presenting with cough, nausea, emesis, fever, shortness of breath and chest pain. Patient states 5 days prior he began having a dry cough. Progressed to last night he began with a fever of 102. He's had 3 episodes of nonbloody diarrhea and is having multiple episodes of phlegm-like emesis. Patient admits to lower chest pain that feels like squeezing. His complete by shortness of breath. Patient states he was bit by a dog in the left hand but the dog is known to them and is up-to-date in immunizations. (Yue Solis) - Related Data Home Medications Medication Instructions Recorded Confirmed Aspirin 81 mg PO DAILY 10/27/13 08/25/17 Fenofibrate Nanocrystallized 145 mg PO HS 10/27/13 08/25/17 [Tricor] lamoTRIgine [LaMICtal] 25 mg PO HS 10/27/13 08/25/17 Insulin Glargine/Lixisenatide 48 units SQ QAM 08/10/17 08/25/17 [[place]a 100 Unit-33 Mcg/ml Pen] rOPINIRole HCL [Requip] 0.5 mg PO HS 08/10/17 08/25/17 Previous Rx's Medication Instructions Recorded metFORMIN HCL 1,000 mg PO BID #0 08/11/17 Atorvastatin [Lipitor] 80 mg PO HS tab 08/26/17 Clopidogrel [Plavix] 75 mg PO DAILY tab 08/26/17 HYDROcodone/APAP 10-325MG [[place] 1 tab PO Q8HR PRN 3 Days #9 tab 08/26/17 10-325] Allergies Allergy/AdvReac Type Severity Reaction Status Date / Time Penicillins Allergy Unknown Verified 09/20/17 23:17 Childhood Review of Systems ROS Other: All systems not noted in ROS Statement are negative. <Yue Solis - Last Filed: 09/21/17 00:39> ROS Other: All systems not noted in ROS Statement are negative. <Nathanael Haskins - Last Filed: 09/21/17 03:38> ROS Statement: Those systems with pertinent positive or pertinent negative responses have been documented in the HPI. Review of Systems Constitutional: Positive fever and chills. Eyes: Denies change in vision, Denies pain Ears, nose, mouth, throat: Denies headaches, Denies sore throat Cardiovascular: Chest pain. Denies palpitations Respiratory: Positive shortness of breath. Positive cough Gastrointestinal: Denies abdominal pain. Denies nausea, vomiting, diarrhea. Genitourinary: Denies hematuria, Denies infections Musculoskeletal: Denies pain, Denies swelling Integumentary: Denies rash Neurological: Denies headache, focal weakness, focal numbness Psychiatric: Denies anxiety, Denies depression Hematologic/Lymphatic: Denies easy bleeding or bruising (Yue Solis) Past Medical History Past Medical History: Asthma, Coronary Artery Disease (CAD), Cancer, Chest Pain / Angina, Diabetes Mellitus, Hyperlipidemia, Hypertension, Osteoarthritis (OA), Pneumonia, Sleep Apnea/CPAP/BIPAP, Thyroid Disorder, Vascular Disorder Additional Past Medical History / Comment(s): CML-chronic anemia, immmunosuppressed, not using CPAP, carpal tunnel bilaterally, previous toe on each foot fx.He has chronic dry mucosa from the [id number] disease especially of the eyes and oral cavity. This necessitated the utilization special contacts and removal of his teeth. History of Any Multi-Drug Resistant Organisms: None Reported Past Surgical History: Heart Catheterization With Stent, Joint Replacement Additional Past Surgical History / Comment(s): BONE MARROW TRANSPLANT 2006, L KNEE scope & REPLACEMENT, SEPTAL SURG, BMTs bilateral ears, hemorrhoidectomy, colonoscopy, vasectomy, recent aortogram, atherectomy with ballon angioplasty . Past Anesthesia/Blood Transfusion Reactions: No Reported Reaction Additional Past Anesthesia/Blood Transfusion Reaction / Comment(s): Pt has received blood without reaction. Date of Last Stent Placement:: 2007 Past Psychological History: Anxiety Smoking Status: Former smoker Past Alcohol Use History: Rare Past Drug Use History: None Reported - Past Family History Father Family Medical History: Coronary Artery Disease (CAD) Additional Family Medical History / Comment(s): Father had triple bypass. He committed suicide. Mother Family Medical History: Dementia Additional Family Medical History / Comment(s): Mother at age 72yrs. <Yue Solis - Last Filed: 09/21/17 00:39> General Exam Limitations: no limitations <WillBrandontenzin Gutierrez - Last Filed: 09/21/17 00:39> General appearance: alert, in no apparent distress Head exam: Present: atraumatic, normocephalic, normal inspection Eye exam: Present: normal appearance, PERRL, EOMI. Absent: scleral icterus, conjunctival injection, periorbital swelling ENT exam: Present: normal exam, mucous membranes moist Neck exam: Present: normal inspection. Absent: tenderness, meningismus, lymphadenopathy Respiratory exam: Present: normal lung sounds bilaterally. Absent: respiratory distress, wheezes, rales, rhonchi, stridor Cardiovascular Exam: Present: regular rate, normal rhythm, normal heart sounds. Absent: systolic murmur, diastolic murmur, rubs, gallop, clicks GI/Abdominal exam: Present: soft, normal bowel sounds. Absent: distended, tenderness, guarding, rebound, rigid Extremities exam: Present: normal inspection, full ROM, normal capillary refill. Absent: tenderness, pedal edema, joint swelling, calf tenderness Back exam: Present: normal inspection Neurological exam: Present: alert, oriented X3, CN II-XII intact Psychiatric exam: Present: normal affect, normal mood Skin exam: Present: warm, dry, intact, normal color. Absent: rash <Nathanael Haskins - Last Filed: 09/21/17 03:38> - General Exam Comments Initial Comments: General: Awake, alert, No acute Distress HENT: Normocephalic. Atraumatic Eyes: PERRL. EOMI. No scleral icterus. No injected conjunctiva Neck: Full ROM Chest/Lungs: Tachypnea. Conversational dyspnea. Shallow distant respirations. Cardiac:sinus tachycardia. No murmurs or rubs Abdomen/GI: Diffuse tenderness to palpation. No abdominal bruit. Musculoskeletal: Full ROM Skin: Warm, dry, intact Neurologic: A/Ox3, no weakness, no sensory deficit, no abdnormal gait, no coordination deficit (Yue Solis) Course <Yue Solis - Last Filed: 09/21/17 00:39> <Nathanael Haskins - Last Filed: 09/21/17 03:38> Vital Signs 09/20/17 09/20/17 09/21/17 23:09 23:36 00:00 Temperature 97.8 F Pulse Rate 105 H 89 Respiratory 22 26 H Rate Blood Pressure 106/55 O2 Sat by Pulse 98 Oximetry 09/21/17 09/21/17 09/21/17 00:06 00:21 00:40 Temperature Pulse Rate 94 93 Respiratory 36 H Rate Blood Pressure 72/37 74/40 O2 Sat by Pulse 96 100 Oximetry 09/21/17 09/21/17 09/21/17 00:43 01:06 01:49 Temperature 96.9 F L Pulse Rate 90 92 101 H Respiratory 36 H 36 H 32 H Rate Blood Pressure 92/42 92/52 101/68 O2 Sat by Pulse 100 99 Oximetry 09/21/17 09/21/17 09/21/17 02:06 02:30 02:52 Temperature 97 F L Pulse Rate 100 108 H 101 H Respiratory 28 H Rate Blood Pressure 94/64 O2 Sat by Pulse 99 Oximetry - Reevaluation(s) Reevaluation #1: 09/21/17 03:37 blood pressure is gonna be improved with double fluid bolus (Nathanael Haskins) Reevaluation #2: 09/21/17 03:38 Patient placed on heparin until VQ scan in the morning (Nathanael Haskins) EKG Findings - EKG Comments: EKG Findings:: EKG shows normal sinus rhythm rate of 99, UT 172, QRS 110, QTc 464 <Nathanael Haskins - Last Filed: 09/21/17 03:38> Medical Decision Making - Lab Data Result diagrams: 09/20/17 23:26 <Yue oSlis - Last Filed: 09/21/17 00:39> - Lab Data Result diagrams: 09/20/17 23:26 09/20/17 23:26 - Radiology Data Radiology results: report reviewed (Chest x-rays negative for acute disease CT chest and pelvis is negative BILATERAL LOWER EXTREMITIES), image reviewed <Nathanael Haskins - Last Filed: 09/21/17 03:38> - Medical Decision Making 52-year-old male presenting with fever, shortness of breath, chest pain, nausea vomiting diarrhea. Then the patient is awake, alert, he is tachypnea, has shallow respirations, has 2 or conversational dyspnea. EKG shows normal sinus rhythm with some flattening of the T-wave in V4 through V6. Patient diaphoretic. BiPap ordered. Patient's condition acutely worsened. His blood pressure was 70/30. A second line was started a second bolus was hung. Patient found to have a lactate greater than 6, acute renal failure, and a d-dimer over 12. Patient moved to room 19. The remainder of his care will be taken over by Dr. Haskins. (Yue Solis) 49 female the ER for evaluation, patient has signs and symptoms of sepsis including fever, elevated lactic acid. Unknown source. Patient started on broad-spectrum antibiotics and to be admitted for evaluation the ICU with infectious disease (Nathanael Haskins) - Lab Data Lab Results 09/20/17 09/20/17 09/20/17 Range/Units 23:26 23:26 23:26 WBC (3.8-10.6) k/uL RBC (4.30-5.90) m/uL Hgb (13.0-17.5) gm/dL Hct (39.0-53.0) % MCV (80.0-100.0) fL MCH (25.0-35.0) pg MCHC (31.0-37.0) g/dL RDW (11.5-15.5) % Plt Count (150-450) k/uL Neutrophils % (Manual) % Band Neutrophils % % Lymphocytes % (Manual) % Monocytes % (Manual) % Neutrophils # (Manual) (1.3-7.7) k/uL Lymphocytes # (Manual) (1.0-4.8) k/uL Monocytes # (Manual) (0-1.0) k/uL Nucleated RBCs (0-0) /100 WBC Manual Slide Review Anisocytosis PT 12.8 H (9.0-12.0) sec INR 1.4 H (<1.2) APTT 32.2 H (22.0-30.0) sec D-Dimer 12.09 H (<0.60) mg/L FEU Sodium 135 L (137-145) mmol/L Potassium 4.4 (3.5-5.1) mmol/L Chloride 99 (98-107) mmol/L Carbon Dioxide 16 L (22-30) mmol/L Anion Gap 20 mmol/L BUN 28 H (9-20) mg/dL Creatinine 3.20 H (0.66-1.25) mg/dL Est GFR (CKD-EPI)AfAm 24 (>60 ml/min/1.73 sqM) Est GFR (CKD-EPI)NonAf 21 (>60 ml/min/1.73 sqM) Glucose 190 H (74-99) mg/dL POC Glucose (mg/dL) (75-99) mg/dL POC Glu First Coat Operator ID Lactic Ac Sepsis Rflx Plasma Lactic Acid Alexei 6.3 H* (0.7-2.0) mmol/L Calcium 9.4 (8.4-10.2) mg/dL Total Bilirubin 1.3 (0.2-1.3) mg/dL Conjugated Bilirubin 0.1 (0.0-0.3) mg/dL Unconjugated Bilirubin 0.3 (0.0-1.1) mg/dL Delta Bilirubin 0.9 H (0.0-0.2) mg/dL AST 48 (17-59) U/L ALT 48 (21-72) U/L Alkaline Phosphatase 133 H (38-126) U/L Troponin I (0.000-0.034) ng/mL NT-Pro-B Natriuret Pep pg/mL Total Protein 6.2 L (6.3-8.2) g/dL Albumin 3.7 (3.5-5.0) g/dL Lipase 81 (23-300) U/L Urine Color Urine Appearance (Clear) Urine pH (5.0-8.0) Ur Specific [place] (1.001-1.035) Urine Protein (Negative) Urine Glucose (UA) (Negative) Urine Ketones (Negative) Urine Blood (Negative) Urine Nitrite (Negative) Urine Bilirubin (Negative) Urine Urobilinogen (<2.0) mg/dL Ur Leukocyte Esterase (Negative) Urine RBC (0-5) /hpf Urine WBC (0-5) /hpf Hyaline Casts (0-2) /lpf Urine Mucus (None) /hpf Acetone, Qual (Negative) Influenza Type A RNA (Not Detectd) Influenza Type B (PCR) (Not Detectd) Blood Type Blood Type Recheck Antibody Screen Spec Expiration Date 09/20/17 09/20/17 09/20/17 Range/Units 23:26 23:26 23:26 WBC (3.8-10.6) k/uL RBC (4.30-5.90) m/uL Hgb (13.0-17.5) gm/dL Hct (39.0-53.0) % MCV (80.0-100.0) fL MCH (25.0-35.0) pg MCHC (31.0-37.0) g/dL RDW (11.5-15.5) % Plt Count (150-450) k/uL Neutrophils % (Manual) % Band Neutrophils % % Lymphocytes % (Manual) % Monocytes % (Manual) % Neutrophils # (Manual) (1.3-7.7) k/uL Lymphocytes # (Manual) (1.0-4.8) k/uL Monocytes # (Manual) (0-1.0) k/uL Nucleated RBCs (0-0) /100 WBC Manual Slide Review Anisocytosis PT (9.0-12.0) sec INR (<1.2) APTT (22.0-30.0) sec D-Dimer (<0.60) mg/L FEU Sodium (137-145) mmol/L Potassium (3.5-5.1) mmol/L Chloride (98-107) mmol/L Carbon Dioxide (22-30) mmol/L Anion Gap mmol/L BUN (9-20) mg/dL Creatinine (0.66-1.25) mg/dL Est GFR (CKD-EPI)AfAm (>60 ml/min/1.73 sqM) Est GFR (CKD-EPI)NonAf (>60 ml/min/1.73 sqM) Glucose (74-99) mg/dL POC Glucose (mg/dL) (75-99) mg/dL POC Glu First Coat Operator ID Lactic Ac Sepsis Rflx Plasma Lactic Acid Alexei (0.7-2.0) mmol/L Calcium (8.4-10.2) mg/dL Total Bilirubin (0.2-1.3) mg/dL Conjugated Bilirubin (0.0-0.3) mg/dL Unconjugated Bilirubin (0.0-1.1) mg/dL Delta Bilirubin (0.0-0.2) mg/dL AST (17-59) U/L ALT (21-72) U/L Alkaline Phosphatase (38-126) U/L Troponin I 0.031 (0.000-0.034) ng/mL NT-Pro-B Natriuret Pep 8370 pg/mL Total Protein (6.3-8.2) g/dL Albumin (3.5-5.0) g/dL Lipase (23-300) U/L Urine Color Urine Appearance (Clear) Urine pH (5.0-8.0) Ur Specific [place] (1.001-1.035) Urine Protein (Negative) Urine Glucose (UA) (Negative) Urine Ketones (Negative) Urine Blood (Negative) Urine Nitrite (Negative) Urine Bilirubin (Negative) Urine Urobilinogen (<2.0) mg/dL Ur Leukocyte Esterase (Negative) Urine RBC (0-5) /hpf Urine WBC (0-5) /hpf Hyaline Casts (0-2) /lpf Urine Mucus (None) /hpf Acetone, Qual Negative (Negative) Influenza Type A RNA (Not Detectd) Influenza Type B (PCR) (Not Detectd) Blood Type Blood Type Recheck Antibody Screen Spec Expiration Date 09/20/17 09/20/17 09/20/17 Range/Units 23:26 23:40 23:52 WBC 7.2 (3.8-10.6) k/uL RBC 4.50 (4.30-5.90) m/uL Hgb 12.7 L (13.0-17.5) gm/dL Hct 38.9 L (39.0-53.0) % MCV 86.4 (80.0-100.0) fL MCH 28.1 (25.0-35.0) pg MCHC 32.5 (31.0-37.0) g/dL RDW 16.4 H (11.5-15.5) % Plt Count 151 D (150-450) k/uL Neutrophils % (Manual) 76 % Band Neutrophils % 15 % Lymphocytes % (Manual) 8 % Monocytes % (Manual) 1 % Neutrophils # (Manual) 6.50 (1.3-7.7) k/uL Lymphocytes # (Manual) 0.58 L (1.0-4.8) k/uL Monocytes # (Manual) 0.07 (0-1.0) k/uL Nucleated RBCs 0 (0-0) /100 WBC Manual Slide Review Performed Anisocytosis Slight PT (9.0-12.0) sec INR (<1.2) APTT (22.0-30.0) sec D-Dimer (<0.60) mg/L FEU Sodium (137-145) mmol/L Potassium (3.5-5.1) mmol/L Chloride (98-107) mmol/L Carbon Dioxide (22-30) mmol/L Anion Gap mmol/L BUN (9-20) mg/dL Creatinine (0.66-1.25) mg/dL Est GFR (CKD-EPI)AfAm (>60 ml/min/1.73 sqM) Est GFR (CKD-EPI)NonAf (>60 ml/min/1.73 sqM) Glucose (74-99) mg/dL POC Glucose (mg/dL) 200 H (75-99) mg/dL POC Glu First Coat Operator ID [place], Regina Lactic Ac Sepsis Rflx Plasma Lactic Acid Alexei (0.7-2.0) mmol/L Calcium (8.4-10.2) mg/dL Total Bilirubin (0.2-1.3) mg/dL Conjugated Bilirubin (0.0-0.3) mg/dL Unconjugated Bilirubin (0.0-1.1) mg/dL Delta Bilirubin (0.0-0.2) mg/dL AST (17-59) U/L ALT (21-72) U/L Alkaline Phosphatase (38-126) U/L Troponin I (0.000-0.034) ng/mL NT-Pro-B Natriuret Pep pg/mL Total Protein (6.3-8.2) g/dL Albumin (3.5-5.0) g/dL Lipase (23-300) U/L Urine Color Urine Appearance (Clear) Urine pH (5.0-8.0) Ur Specific [place] (1.001-1.035) Urine Protein (Negative) Urine Glucose (UA) (Negative) Urine Ketones (Negative) Urine Blood (Negative) Urine Nitrite (Negative) Urine Bilirubin (Negative) Urine Urobilinogen (<2.0) mg/dL Ur Leukocyte Esterase (Negative) Urine RBC (0-5) /hpf Urine WBC (0-5) /hpf Hyaline Casts (0-2) /lpf Urine Mucus (None) /hpf Acetone, Qual (Negative) Influenza Type A RNA Not Detected (Not Detectd) Influenza Type B (PCR) Not Detected (Not Detectd) Blood Type Blood Type Recheck Antibody Screen Spec Expiration Date 09/21/17 09/21/17 09/21/17 Range/Units 00:03 00:15 00:32 WBC (3.8-10.6) k/uL RBC (4.30-5.90) m/uL Hgb (13.0-17.5) gm/dL Hct (39.0-53.0) % MCV (80.0-100.0) fL MCH (25.0-35.0) pg MCHC (31.0-37.0) g/dL RDW (11.5-15.5) % Plt Count (150-450) k/uL Neutrophils % (Manual) % Band Neutrophils % % Lymphocytes % (Manual) % Monocytes % (Manual) % Neutrophils # (Manual) (1.3-7.7) k/uL Lymphocytes # (Manual) (1.0-4.8) k/uL Monocytes # (Manual) (0-1.0) k/uL Nucleated RBCs (0-0) /100 WBC Manual Slide Review Anisocytosis PT (9.0-12.0) sec INR (<1.2) APTT (22.0-30.0) sec D-Dimer (<0.60) mg/L FEU Sodium (137-145) mmol/L Potassium (3.5-5.1) mmol/L Chloride (98-107) mmol/L Carbon Dioxide (22-30) mmol/L Anion Gap mmol/L BUN (9-20) mg/dL Creatinine (0.66-1.25) mg/dL Est GFR (CKD-EPI)AfAm (>60 ml/min/1.73 sqM) Est GFR (CKD-EPI)NonAf (>60 ml/min/1.73 sqM) Glucose (74-99) mg/dL POC Glucose (mg/dL) (75-99) mg/dL POC Glu First Coat Operator ID Lactic Ac Sepsis Rflx Y Plasma Lactic Acid Alexei (0.7-2.0) mmol/L Calcium (8.4-10.2) mg/dL Total Bilirubin (0.2-1.3) mg/dL Conjugated Bilirubin (0.0-0.3) mg/dL Unconjugated Bilirubin (0.0-1.1) mg/dL Delta Bilirubin (0.0-0.2) mg/dL AST (17-59) U/L ALT (21-72) U/L Alkaline Phosphatase (38-126) U/L Troponin I (0.000-0.034) ng/mL NT-Pro-B Natriuret Pep pg/mL Total Protein (6.3-8.2) g/dL Albumin (3.5-5.0) g/dL Lipase (23-300) U/L Urine Color Yellow Urine Appearance Cloudy (Clear) Urine pH 5.5 (5.0-8.0) Ur Specific [place] 1.017 (1.001-1.035) Urine Protein 1+ H (Negative) Urine Glucose (UA) 2+ H (Negative) Urine Ketones Trace H (Negative) Urine Blood Negative (Negative) Urine Nitrite Negative (Negative) Urine Bilirubin Negative (Negative) Urine Urobilinogen <2.0 (<2.0) mg/dL Ur Leukocyte Esterase Negative (Negative) Urine RBC 1 (0-5) /hpf Urine WBC 6 H (0-5) /hpf Hyaline Casts 8 H (0-2) /lpf Urine Mucus Occasional H (None) /hpf Acetone, Qual (Negative) Influenza Type A RNA (Not Detectd) Influenza Type B (PCR) (Not Detectd) Blood Type AB Positive Blood Type Recheck No Antibody Screen NEGATIVE Spec Expiration Date 09/24/2017 - 2312 Critical Care Time Critical Care Time: Yes Total Critical Care Time: 31 <Nathanael Haskins - Last Filed: 09/21/17 03:38> Disposition <Yue Solis - Last Filed: 09/21/17 00:39> Is patient prescribed a controlled substance at d/c from ED?: No <Nathanael Haskins - Last Filed: 09/21/17 03:38> Clinical Impression: Acute exacerbation of chronic obstructive airways disease, Fever, Sepsis, Dog bite Narrative: r/o Bacteremia, PE (Nathanael Haskins) Disposition: ADMITTED IP TO THIS HOSP Condition: Serious
[2017-09-20 23:59] LABS: Albumin 3.7 g/dL (3.5-5.0); Bilirubin, Conjugated 0.1 mg/dL (0.0-0.3); Bilirubin, Delta 0.9 mg/dL (0.0-0.2); Bilirubin,Unconjugated 0.3 mg/dL (0.0-1.1); Calcium 9.4 mg/dL (8.4-10.2); Potassium 4.4 mmol/L (3.5-5.1); Total Bilirubin 1.3 mg/dL (0.2-1.3); Total Protein 6.2 g/dL (6.3-8.2)
[2017-09-21] MEDS ORDERED: SODIUM CHLORIDE 0.9% 1,000 ML IV ONE ×2 (00:06→11:55)
[2017-09-21 00:13] LABS: Glucose,Whole Blood 200 mg/dL (75-99)
[2017-09-21] MEDS ORDERED: SODIUM CHLORIDE 0.9% 1,000 ML IV STA ×2 (00:21)
[2017-09-21] MEDS ORDERED: LEVOFLOXACIN 750MG-D5W PMX 750 MG in DEXTROSE/WATER 1 150ML.BAG IVPB STA (00:25)
[2017-09-21] MEDS ORDERED: CEFUROXIME 1,500 MG in SODIUM CHLORIDE 0.9% 50 ML IVPB STA (00:25)
[2017-09-21] MEDS ORDERED: LEVOFLOXACIN 750MG-D5W PMX 750 MG in DEXTROSE/WATER 1 150ML.BAG IVPB SCH ×2 (00:30→23:00)
[2017-09-21 00:31] LABS: INR 1.4 (<1.2); Partial Thromboplastin Time 32.2 sec (22.0-30.0); Prothrombin Time 12.8 sec (9.0-12.0)
[2017-09-21 00:32] LABS: D-Dimer 12.09 mg/L FEU (<0.60)
[2017-09-21] MEDS ORDERED: HEPARIN SODIUM,PORCINE 10,000 UNIT/ML 1 ML VIAL IV ONE (00:33)
[2017-09-21] MEDS ORDERED: HEPARIN SODIUM,PORCINE 5,000 UNIT/ML 1 ML VIAL IV PRN (00:33)
--- NOTE | 2017-09-21 00:41 | XR ---
EXAMINATION TYPE: XR chest 1V portable DATE OF EXAM: 09/21/2017 COMPARISON: 05/21/2015 HISTORY: Chest pain TECHNIQUE: Single frontal view of the chest is obtained. FINDINGS: Heart and mediastinum are normal. Lungs are clear. Diaphragm is normal. There are chest le ads. Bony thorax is intact. IMPRESSION: Normal chest. No change.
[2017-09-21 01:09] LABS: Appearance,Urine Cloudy (Clear); Bilirubin,Urine Negative (Negative); Blood,Urine Negative (Negative); Color,Urine Yellow; Glucose,Urine (UA) 2+ (Negative); Hyaline Casts,Urine 8 /lpf (0-2); Ketones,Urine Trace (Negative); Leukocyte Esterase,Urine Negative (Negative); Mucus,Urine Occasional /hpf; Nitrite,Urine Negative (Negative); PH, Urine 5.5 (5.0-8.0); Protein,Urine 1+ (Negative); RBC,Urine 1 /hpf (0-5); Specific Gravity,Urine 1.017 (1.001-1.035); Urobilinogen,Urine <2.0 mg/dL (<2.0); WBC,Urine 6 /hpf (0-5)
--- NOTE | 2017-09-21 01:21 | CT ---
EXAMINATION TYPE: CT ChestAbdPelvis wo con DATE OF EXAM: 09/21/2017 COMPARISON: NONE HISTORY: STIVEN, R/O AAA, PE chest pain. Abdominal pain. CT DLP: 1333.90 mGycm. Automated Exposure Control for Dose Reduction was Utilized. TECHNIQUE: CT scan of the thorax, abdomen and pelvis is performed without IV contrast. FINDINGS: The lungs are clear of consolidation. There is no pleural effusion. There are small linear density in the lingula left upper lobe. There is no mediastinal adenopathy. Heart size is normal. There is no p ericardial effusion. Liver shows no focal defect. Gallbladder appears normal. 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 There is no adrenal mass. Kidneys have normal size. There is no hydronephrosis. Ureters are not dilat ed. There is no retroperitoneal adenopathy. There is no evidence of a bowel obstruction. There is a F oley catheter in the urinary bladder. Bladder is empty. I see no intestinal wall thickening. There ar e no dilated loops. There is no ascites. There is no sign of free air. There is disc space narrowing at L5-S1 with vacuum disc and spur formation. IMPRESSION: No evidence of aortic aneurysm. This exam has no contrast and the possibility of pulmonary embolism i s not evaluated. No sign of of acute abnormality in the chest abdomen pelvis. IMPRESSION: No acute osseous fracture, abnormal fluid collection, or evidence of solid organ injury i n the thorax, abdomen, or pelvis.
[2017-09-21] MEDS ORDERED: IPRATROPIUM-ALBUTEROL 3 ML NEB INHALATION STA (01:26)
[2017-09-21 01:43] LABS: Anisocytosis Slight; HCT 38.9 % (39.0-53.0); HGB 12.7 gm/dL (13.0-17.5); MCH 28.1 pg (25.0-35.0); MCHC 32.5 g/dL (31.0-37.0); MCV 86.4 fL (80.0-100.0); Mean Platelet Volume 7.5; RDW 16.4 % (11.5-15.5); WBC 7.2 k/uL (3.8-10.6)
[2017-09-21 01:45] LABS: Platelet Count 151 k/uL (150-450)
[2017-09-21 02:14] LABS: Band Neutrophils % 15 %; Lymphocytes # (M) 0.58 k/uL (1.0-4.8); Monocytes # (M) 0.07 k/uL (0-1.0); Neutrophils % (M) 76 %; Nucleated Red Blood Cells 0 /100 WBC (0-0); Total Cells Counted 200
[2017-09-21] MEDS ORDERED: NALOXONE 0.4 MG/ML 1 ML VIAL IV PRN (02:28)
[2017-09-21] MEDS ORDERED: MORPHINE SULFATE 2 MG/ML SYRINGE IV PRN (02:28)
[2017-09-21] MEDS: IPRATROPIUM-ALBUTEROL 3 ML NEB INHALATION SCH ×6 (02:35→23:24)
[2017-09-21] MEDS: HEPARIN SOD,PORK IN 0.45% NACL 25,000 UNIT in 0.45% NACL 1 500ML.BAG IV SCH ×3 (02:44→20:33)
[2017-09-21 03:27] LABS: Glucose,Whole Blood 236 mg/dL (75-99)
[2017-09-21] MEDS ORDERED: VANCOMYCIN IV PER PHARMACY 1 EACH MISC MISCELLANE PRN (03:39)
[2017-09-21] MEDS ORDERED: VANCOMYCIN 1,750 MG in SODIUM CHLORIDE 0.9% 500 ML IVPB ONE (04:00)
[2017-09-21] MEDS ORDERED: VANCOMYCIN 1,500 MG in SODIUM CHLORIDE 0.9% 250 ML IVPB ONE (04:00)
[2017-09-21] MEDS ORDERED: NOREPINEPHRIN 4 MG-0.9% NS PMX 4 MG/250 ML ML IV SCH (04:30)
[2017-09-21 05:05] LABS: Anisocytosis Slight; HCT 38.1 % (39.0-53.0); HGB 12.2 gm/dL (13.0-17.5); Hypochromasia Moderate; MCH 28.7 pg (25.0-35.0); MCHC 32.1 g/dL (31.0-37.0); MCV 89.5 fL (80.0-100.0); Mean Platelet Volume 7.3; RBC 4.26 m/uL (4.30-5.90); RDW 16.3 % (11.5-15.5); WBC 12.6 k/uL (3.8-10.6)
[2017-09-21 05:16] LABS: Calcium 8.2 mg/dL (8.4-10.2); Magnesium 1.3 mg/dL (1.6-2.3); Phosphorus 6.4 mg/dL (2.5-4.5); Potassium 5.4 mmol/L (3.5-5.1)
[2017-09-21 05:29] LABS: Band Neutrophils % 38 %; Myelocytes # (M) 0.13 k/uL (0); Myelocytes % 1 %; Neutrophils % (M) 58 %; Nucleated Red Blood Cells 0 /100 WBC (0-0); Platelet Count 95 k/uL (150-450); Total Cells Counted 200; Toxic Vacuolation Present
[2017-09-21] MEDS ORDERED: Magnesium Replacement Protocol 1 EACH MISC MISCELLANE PRN (06:15)
[2017-09-21] MEDS: MAGNESIUM SULFATE-D5W PMX 1 GM in DEXTROSE/WATER 1 100ML.BAG IVPB SCH ×3 (06:31→09:32)
[2017-09-21 06:47] LABS: Glucose,Whole Blood 262 mg/dL (75-99)
[2017-09-21] MEDS ORDERED: INSULIN ASPART 100 UNIT/ML 1 ML 10 ML VIAL SQ SCH (07:30)
[2017-09-21] MEDS ORDERED: FUROSEMIDE 10 MG/ML 4 ML VIAL IV STA (07:33)
--- NOTE | 2017-09-21 07:46 | XR ---
EXAMINATION TYPE: XR chest 1V DATE OF EXAM: 09/21/2017 COMPARISON: 09/21/2017 INDICATION: Short of breath TECHNIQUE: Single frontal view of the chest is obtained. FINDINGS: The heart size is normal. The pulmonary vasculature is normal. The lungs are clear. IMPRESSION: 1. No acute pulmonary process.
[2017-09-21] MEDS ORDERED: CEFUROXIME 1,500 MG in SODIUM CHLORIDE 0.9% 50 ML IVPB SCH (09:00)
[2017-09-21] MEDS ORDERED: CEFEPIME 2 GM in SODIUM CHLORIDE 0.9% 50 ML IVPB SCH (09:30)
[2017-09-21] MEDS: PANTOPRAZOLE 40 MG/10 ML VIAL IV SCH (09:33)
[2017-09-21] MEDS: methylPREDNISolone SOD SUCCI 125 MG/2 ML VIAL IV SCH ×3 (09:35→18:09)
--- NOTE | 2017-09-21 10:05 | P.HPIM ---
History of Present Illness H&P Date: 09/21/17 Chief Complaint: Fever and shortness of breath this is a 52-year-old male, patient of Dr. Sweeney. He has a known past medical history of CML with a bone marrow transplant in 2006 and previous chemo treatment. He has been off of his antirejection medications for about a year. Patient reports that he did not want to take 50 pounds. He also has a known history of asthma, coronary disease with stent, hypertension, diabetes mellitus , hyperlipidemia, obstructive sleep apnea and peripheral vascular disease. Patient reports last about 4 days ago he received a dog bite to the left hand. The dog's family dog and up-to-date on immunizations. He reports that he had some swelling in the hand and redness around the puncture sites. No pus drainage. He reports that it seemed to be healing. Thursday patient started to not feel well. He was feverish with a temp of 102. Having chills and sweats. Also started to have some nausea and diarrhea. Decrease in appetite. He also started to have a cough with some phlegm production. Patient started to become concerned on Thursday still having temps and diarrhea. Came into the emergency room for further evaluation and treatment. Patient also had been reporting lower chest and abdomen discomfort. Patient had a white count 12.6 creatinine elevated at 3.20 and lactic acid elevated at 6.3 up to 8.5. Patient was found to be septic received 3 L of IV fluid boluses for his hypotension. Patient continued to become more short of breath and increased respiratory rate. BiPAP was ordered. Patient did not tolerate the BiPAP. He was transferred to the ICU. He is currently on 4 mics of Levophed. And on but broad-spectrum antibiotics which include Levaquin Vanco and cefuroxime. Critical care, infectious disease,oncology and nephrology has been consulted. Nephrology has ordered dose of IV Lasix with evidence of fluid overload earlier this morning. Patient also had an elevated d-dimer. Unable to do a CAT scan due to elevated creatinine. Patient currently cannot tolerate a VQ scan. Pulmonate service evaluated patient is on IV heparin. VQ scan and venous Dopplers have been ordered. CT of chest abdomen and pelvis is unremarkable. EKG showing a normal sinus rhythm with nonspecific T-wave abnormality Review of Systems Please refer to HPI otherwise unremarkable Past Medical History Past Medical History: Asthma, Coronary Artery Disease (CAD), Cancer, Chest Pain / Angina, Diabetes Mellitus, Hyperlipidemia, Hypertension, Osteoarthritis (OA), Pneumonia, Sleep Apnea/CPAP/BIPAP, Thyroid Disorder, Vascular Disorder Additional Past Medical History / Comment(s): CML-chronic anemia, immmunosuppressed, not using CPAP, carpal tunnel bilaterally, previous toe on each foot fx.He has chronic dry mucosa from the oilam-hkxoqj-ckeg disease especially of the eyes and oral cavity. This necessitated the utilization special contacts and removal of his teeth. History of Any Multi-Drug Resistant Organisms: None Reported Past Surgical History: Heart Catheterization With Stent, Joint Replacement Additional Past Surgical History / Comment(s): BONE MARROW TRANSPLANT 2006, L KNEE scope & REPLACEMENT, SEPTAL SURG, BMTs bilateral ears, hemorrhoidectomy, colonoscopy, vasectomy, recent aortogram, atherectomy with ballon angioplasty . Past Anesthesia/Blood Transfusion Reactions: No Reported Reaction Additional Past Anesthesia/Blood Transfusion Reaction / Comment(s): Pt has received blood without reaction. Date of Last Stent Placement:: 2007 Past Psychological History: Anxiety Additional Psychological History / Comment(s): Pt resides with his spouse and 2 grown children. He is independent. He uses no assistive device. He has DEDE and his CPAP is broken so he is not using it at this time. He drives. 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 Was a tobacco smoker briefly more than 20 years ago. No significant alcohol use. No recreational drugs use. No experience. No recent travel history. No animal exposures. Smoking Status: Former smoker Past Alcohol Use History: Rare Additional Past Alcohol Use History / Comment(s): Pt states he has not smoked for 25 yrs and when he did it was only on occasion-socially. Past Drug Use History: None Reported - Past Family History Father Family Medical History: Coronary Artery Disease (CAD) Additional Family Medical History / Comment(s): Father had triple bypass. He committed suicide. Mother Family Medical History: Dementia Additional Family Medical History / Comment(s): Mother at age 72yrs. Medications and Allergies Home Medications Medication Instructions Recorded Confirmed Type Fenofibrate Nanocrystallized 145 mg PO HS 10/27/13 09/21/17 History [Tricor] lamoTRIgine [LaMICtal] 50 mg PO HS 10/27/13 09/21/17 History Insulin Glargine/Lixisenatide 44 units SQ QAM 08/10/17 09/21/17 History [Soliqua 100 Unit-33 Mcg/ml Pen] metFORMIN HCL 1,000 mg PO BID #0 08/11/17 09/21/17 Rx Clopidogrel [Plavix] 75 mg PO DAILY tab 08/26/17 09/21/17 Rx Atorvastatin [Lipitor] 40 mg PO HS 09/21/17 09/21/17 History rOPINIRole HCL [Requip] 1 mg PO HS 09/21/17 09/21/17 History Allergies Allergy/AdvReac Type Severity Reaction Status Date / Time Penicillins Allergy Unknown Verified 09/21/17 09:00 Childhood Physical Exam Vitals: Vital Signs Temp Pulse Resp BP Pulse Ox 09/21/17 09:00 97 27 H 107/68 99 09/21/17 08:30 97.6 F 96 23 91/69 98 09/21/17 08:26 94 09/21/17 08:11 96 09/21/17 08:00 93 26 H 98/70 98 09/21/17 07:30 93 27 H 95/76 99 09/21/17 07:00 94 25 H 92/64 98 09/21/17 06:30 97 29 H 98/59 98 09/21/17 06:00 98 26 H 88/51 97 09/21/17 05:00 96 25 H 97/63 97 09/21/17 04:30 98 20 89/63 98 09/21/17 04:00 97.5 F L 98 26 H 89/63 98 09/21/17 03:30 97.7 F 100 21 94/48 95 09/21/17 03:24 102 H 25 H 09/21/17 02:52 97 F L 101 H 28 H 94/64 99 09/21/17 02:39 97.5 F L 28 H 09/21/17 02:30 108 H 09/21/17 02:06 100 09/21/17 01:49 101 H 32 H 101/68 99 09/21/17 01:06 96.9 F L 92 36 H 92/52 09/21/17 00:43 90 36 H 92/42 100 09/21/17 00:40 93 09/21/17 00:21 94 36 H 74/40 100 09/21/17 00:06 72/37 96 06/25/18 00:00 89 09/20/17 23:36 26 H 09/20/17 23:09 97.8 F 105 H 22 106/55 98 Intake and Output 09/20/17 09/21/17 09/21/17 22:59 06:59 14:59 Intake Total 400.129 400 Output Total 365 450 Balance 35.129 -50 Intake: IV 300 400 Magnesium Sulfate-D5w Pmx 100 1 gm In Dextrose/Water 1 100ml.bag @ 100 mls/hr IVPB Q1H JADEN Rx#: [id number] Sodium Chloride 0.9% 1, 300 300 000 ml @ 100 mls/hr IV . Q10H STA Rx#:[id number] Intake, IV Titration 100.129 Amount Heparin Sod,Pork in 0.45% 99.379 NaCl 25,000 unit In 0.45 % NaCl 1 500ml.bag @ 18 UNITS/KG/HR 35.92 mls/hr IV .[id number] JADEN Rx#: [id number] Norepinephrin 4 mg-0.9% 0.75 Ns Pmx 4 mg In 250 ml @ Titrate IV .Q0M JADEN Rx#: [id number] Output: Urine 365 450 Other: Voiding Method Indwelling Catheter # Bowel Movements 1 Weight 100.9 kg Head normocephalic Neck supple Lungs crackles at the bases bilaterally anterior wheeze Heart regular rate and rhythm S1-S2, no rub or gallop Abdomen is soft nontender nondistended positive bowel sounds no hepatosplenomegaly Extremities no edema of the lower extremity. Left hand small laceration between the thumb and first finger scabbed over. No redness or pus. Puncture garza from tooth on the lateral aspect of the left hand posteriorly Neuro alert and orientated to 3 Results CBC & Chem 7: 09/21/17 04:40 09/21/17 04:40 Labs: Abnormal Lab Results - Last 24 Hours (Table) 09/20/17 09/20/17 09/20/17 Range/Units 23:26 23:26 23:26 WBC (3.8-10.6) k/uL RBC (4.30-5.90) m/uL Hgb (13.0-17.5) gm/dL Hct (39.0-53.0) % RDW (11.5-15.5) % Plt Count (150-450) k/uL Neutrophils # (Manual) (1.3-7.7) k/uL Lymphocytes # (Manual) (1.0-4.8) k/uL Myelocytes # (Manual) (0) k/uL PT 12.8 H (9.0-12.0) sec INR 1.4 H (<1.2) APTT 32.2 H (22.0-30.0) sec D-Dimer 12.09 H (<0.60) mg/L FEU Sodium 135 L (137-145) mmol/L Potassium (3.5-5.1) mmol/L Carbon Dioxide 16 L (22-30) mmol/L BUN 28 H (9-20) mg/dL Creatinine 3.20 H (0.66-1.25) mg/dL Glucose 190 H (74-99) mg/dL POC Glucose (mg/dL) (75-99) mg/dL Plasma Lactic Acid Alexei 6.3 H* (0.7-2.0) mmol/L Calcium (8.4-10.2) mg/dL Phosphorus (2.5-4.5) mg/dL Magnesium (1.6-2.3) mg/dL Delta Bilirubin 0.9 H (0.0-0.2) mg/dL Alkaline Phosphatase 133 H (38-126) U/L Total Protein 6.2 L (6.3-8.2) g/dL Urine Protein (Negative) Urine Glucose (UA) (Negative) Urine Ketones (Negative) Urine WBC (0-5) /hpf Hyaline Casts (0-2) /lpf Urine Mucus (None) /hpf 09/20/17 09/20/17 09/21/17 Range/Units 23:26 23:52 00:32 WBC (3.8-10.6) k/uL RBC (4.30-5.90) m/uL Hgb 12.7 L (13.0-17.5) gm/dL Hct 38.9 L (39.0-53.0) % RDW 16.4 H (11.5-15.5) % Plt Count (150-450) k/uL Neutrophils # (Manual) (1.3-7.7) k/uL Lymphocytes # (Manual) 0.58 L (1.0-4.8) k/uL Myelocytes # (Manual) (0) k/uL PT (9.0-12.0) sec INR (<1.2) APTT (22.0-30.0) sec D-Dimer (<0.60) mg/L FEU Sodium (137-145) mmol/L Potassium (3.5-5.1) mmol/L Carbon Dioxide (22-30) mmol/L BUN (9-20) mg/dL Creatinine (0.66-1.25) mg/dL Glucose (74-99) mg/dL POC Glucose (mg/dL) 200 H (75-99) mg/dL Plasma Lactic Acid Alexei (0.7-2.0) mmol/L Calcium (8.4-10.2) mg/dL Phosphorus (2.5-4.5) mg/dL Magnesium (1.6-2.3) mg/dL Delta Bilirubin (0.0-0.2) mg/dL Alkaline Phosphatase (38-126) U/L Total Protein (6.3-8.2) g/dL Urine Protein 1+ H (Negative) Urine Glucose (UA) 2+ H (Negative) Urine Ketones Trace H (Negative) Urine WBC 6 H (0-5) /hpf Hyaline Casts 8 H (0-2) /lpf Urine Mucus Occasional H (None) /hpf 09/21/17 09/21/17 09/21/17 Range/Units 03:25 04:32 04:33 WBC (3.8-10.6) k/uL RBC (4.30-5.90) m/uL Hgb (13.0-17.5) gm/dL Hct (39.0-53.0) % RDW (11.5-15.5) % Plt Count (150-450) k/uL Neutrophils # (Manual) (1.3-7.7) k/uL Lymphocytes # (Manual) (1.0-4.8) k/uL Myelocytes # (Manual) (0) k/uL PT (9.0-12.0) sec INR (<1.2) APTT >200.0 H* (22.0-30.0) sec D-Dimer (<0.60) mg/L FEU Sodium (137-145) mmol/L Potassium (3.5-5.1) mmol/L Carbon Dioxide (22-30) mmol/L BUN (9-20) mg/dL Creatinine (0.66-1.25) mg/dL Glucose (74-99) mg/dL POC Glucose (mg/dL) 236 H (75-99) mg/dL Plasma Lactic Acid Alexei 8.7 H* (0.7-2.0) mmol/L Calcium (8.4-10.2) mg/dL Phosphorus (2.5-4.5) mg/dL Magnesium (1.6-2.3) mg/dL Delta Bilirubin (0.0-0.2) mg/dL Alkaline Phosphatase (38-126) U/L Total Protein (6.3-8.2) g/dL Urine Protein (Negative) Urine Glucose (UA) (Negative) Urine Ketones (Negative) Urine WBC (0-5) /hpf Hyaline Casts (0-2) /lpf Urine Mucus (None) /hpf 09/21/17 09/21/17 09/21/17 Range/Units 04:40 04:40 06:45 WBC 12.6 H (3.8-10.6) k/uL RBC 4.26 L (4.30-5.90) m/uL Hgb 12.2 L (13.0-17.5) gm/dL Hct 38.1 L (39.0-53.0) % RDW 16.3 H (11.5-15.5) % Plt Count 95 L (150-450) k/uL Neutrophils # (Manual) 12.00 H (1.3-7.7) k/uL Lymphocytes # (Manual) 0.50 L (1.0-4.8) k/uL Myelocytes # (Manual) 0.13 H (0) k/uL PT (9.0-12.0) sec INR (<1.2) APTT (22.0-30.0) sec D-Dimer (<0.60) mg/L FEU Sodium 135 L (137-145) mmol/L Potassium 5.4 H (3.5-5.1) mmol/L Carbon Dioxide 15 L (22-30) mmol/L BUN 30 H (9-20) mg/dL Creatinine 3.10 H (0.66-1.25) mg/dL Glucose 257 H (74-99) mg/dL POC Glucose (mg/dL) 262 H (75-99) mg/dL Plasma Lactic Acid Alexei (0.7-2.0) mmol/L Calcium 8.2 L (8.4-10.2) mg/dL Phosphorus 6.4 H (2.5-4.5) mg/dL Magnesium 1.3 L (1.6-2.3) mg/dL Delta Bilirubin (0.0-0.2) mg/dL Alkaline Phosphatase (38-126) U/L Total Protein (6.3-8.2) g/dL Urine Protein (Negative) Urine Glucose (UA) (Negative) Urine Ketones (Negative) Urine WBC (0-5) /hpf Hyaline Casts (0-2) /lpf Urine Mucus (None) /hpf 09/21/17 Range/Units 08:31 WBC (3.8-10.6) k/uL RBC (4.30-5.90) m/uL Hgb (13.0-17.5) gm/dL Hct (39.0-53.0) % RDW (11.5-15.5) % Plt Count (150-450) k/uL Neutrophils # (Manual) (1.3-7.7) k/uL Lymphocytes # (Manual) (1.0-4.8) k/uL Myelocytes # (Manual) (0) k/uL PT (9.0-12.0) sec INR (<1.2) APTT (22.0-30.0) sec D-Dimer (<0.60) mg/L FEU Sodium (137-145) mmol/L Potassium (3.5-5.1) mmol/L Carbon Dioxide (22-30) mmol/L BUN (9-20) mg/dL Creatinine (0.66-1.25) mg/dL Glucose (74-99) mg/dL POC Glucose (mg/dL) (75-99) mg/dL Plasma Lactic Acid Alexei 8.5 H* (0.7-2.0) mmol/L Calcium (8.4-10.2) mg/dL Phosphorus (2.5-4.5) mg/dL Magnesium (1.6-2.3) mg/dL Delta Bilirubin (0.0-0.2) mg/dL Alkaline Phosphatase (38-126) U/L Total Protein (6.3-8.2) g/dL Urine Protein (Negative) Urine Glucose (UA) (Negative) Urine Ketones (Negative) Urine WBC (0-5) /hpf Hyaline Casts (0-2) /lpf Urine Mucus (None) /hpf Assessment and Plan Assessment: 1. Acute sepsis present on admission possibly secondary to dog bite to the left hand. Infectious disease has been consulted. Blood culture pending. Continue with broad-spectrum antibiotics and IV fluids. 2. Shortness of breath with chest pain and Elevated d-dimer: Continue IV heparin until able to rule out PE and DVT. VQ scan and venous Dopplers ordered. Unable to perform a CTA of the chest because of elevated creatinine. Patient unable to tolerate VQ scan at this time. Check troponin 3. Acute kidney injury: Likely related to hypoperfusion due to patient's hypotension. As well as diarrhea. Creatinine 3.20 on admission. He has received IV fluids. Nephrology has been consulted 4. Hypotension patient receiving IV fluids and currently on [place] Levophed 5. Acute asthma exacerbation patient was started on IV Solu-Medrol and bronchodilators. Pulmonary service following 6. Diarrhea checking stool for C. diff 7. Diabetes mellitus type 2 resume patient's home insulin and agree with steroid sliding scale coverage 8. History of CML status post chemotherapy and a bone marrow transplant in 2006. Oncology consulted 9. History of xokws-yiavxk-czel disease after bone marrow transplant. Patient has not been taking antirejection medication for over a year. Patient stopped taking them on his own 10. Mood disorder continue Lamictal 11. History of coronary artery disease with previous cardiac stent 12. Hyperkalemia should be corrected with the extra Lasix. 13. Hypomagnesemia and patient receiving magnesium supplement 14. History of peripheral vascular disease with percutaneous superficial femoral artery arthrectomy and percutaneous transluminal balloon angioplasty of the left leg in July 2017 DVT prophylaxis IV heparin and GI prophylaxis Protonix Time with Patient: Greater than 30 (Greater than 60% of the total time spent in counseling and coordination of care.I performed an examination of the patient and discussed their management with the physician Dumpling Machine Operator. I have reviewed the Physician Dumpling Machine Operator's notes and agree with the documented findings and plan of care)
[2017-09-21 11:24] LABS: Glucose,Whole Blood 328 mg/dL (75-99)
[2017-09-21] MEDS ORDERED: INSULIN REGULAR BOLUS (FROM DRIP BAG) IV PRN (11:34)
[2017-09-21 12:37] LABS: Calcium 8.2 mg/dL (8.4-10.2); Potassium 5.9 mmol/L (3.5-5.1)
[2017-09-21] MEDS: LIXISENATIDE SQ SCH (12:43)
[2017-09-21] MEDS: INSULIN GLARGINE SQ SCH (12:43)
[2017-09-21] MEDS: [UNRECOGNIZED DRUG - OTHER] SQ SCH (12:43)
--- NOTE | 2017-09-21 13:01 | P.CNPUL ---
History of Present Illness Consult date: 09/21/17 Requesting physician: Jumana Templeton Reason for consult: other (Acute sepsis, likely secondary to a dog bite.) Chief complaint: Fever and shortness of breath and diarrhea History of present illness: This is a 52-year-old white male with history of CML and bone marrow transplant in 2006, patient has been on antirejection therapy for quite some time, a year ago stopped taking his anti rejection therapy on his own. Patient is also known to have history of diabetes, hypertension, coronary artery disease and previous stent placement, history of bronchial asthma and obstructive sleep apnea as well as peripheral vessel occlusive disease. Last , which is 4 days ago, patient was bit at his left hand by a showed dog who is supposedly immunized fully. Patient did not seek any medical attention, he just cleaned his wound and placed topical antibiotics on the site of the bite. Patient developed some swelling and redness around the puncture site, there was no evidence of any purulent drainage, and he was happy that the area seems to be healing on its own. Last night, the patient developed fever with a temp as high as 102, shortness of breath, wheezing, diarrhea, nonbloody, some vague abdominal discomfort, episodes of nausea but no vomiting, and significant lower chest and upper abdominal pain. Upon presentation to the ER, his lactic acid was elevated, patient was hypotensive requiring fluid boluses, and he also required levo fed, presently on for mics of levo fed. Patient was admitted with the impression of septic shock and sepsis. Broad-spectrum antibiotics were initiated, presently on vancomycin and cefepime. Patient is also noted to have acute kidney injury. For some reason a VQ scan was ordered, but the patient is presently on heparin, and the clinical history does not suggestive of pulmonary embolism. His shortness of breath is easily explained by his sepsis and his wheezing noted on physical examination. CT of the abdomen without contrast was noted to be unremarkable. Lasix was given earlier since the patient received significant amount of fluid boluses earlier, and his urine output was marginal. During my evaluation, patient was noted to be slightly dyspneic, anxious, and on for mics of levo fed for adequate mean arterial pressure of 70. Patient denies any chest pain, he does have fever and chills, generalized aches, no dysuria, no frequency, no urgency. He does have intermittent episodes of dry hacking cough and wheezing. Chest x-ray on admission and chest x-ray this morning is basically normal. Review of Systems 14 point review of systems were obtained, please refer to pertinent positives and negatives as per HPI, otherwise remaining systems are negative Past Medical History Past Medical History: Asthma, Coronary Artery Disease (CAD), Cancer, Chest Pain / Angina, Diabetes Mellitus, Hyperlipidemia, Hypertension, Osteoarthritis (OA), Pneumonia, Sleep Apnea/CPAP/BIPAP, Thyroid Disorder, Vascular Disorder Additional Past Medical History / Comment(s): CML-chronic anemia, immmunosuppressed, not using CPAP, carpal tunnel bilaterally, previous toe on each foot fx.He has chronic dry mucosa from the [id number] disease especially of the eyes and oral cavity. This necessitated the utilization special contacts and removal of his teeth. History of Any Multi-Drug Resistant Organisms: None Reported Past Surgical History: Heart Catheterization With Stent, Joint Replacement Additional Past Surgical History / Comment(s): BONE MARROW TRANSPLANT 2006, L KNEE scope & REPLACEMENT, SEPTAL SURG, BMTs bilateral ears, hemorrhoidectomy, colonoscopy, vasectomy, recent aortogram, atherectomy with ballon angioplasty . Past Anesthesia/Blood Transfusion Reactions: No Reported Reaction Additional Past Anesthesia/Blood Transfusion Reaction / Comment(s): Pt has received blood without reaction. Date of Last Stent Placement:: 2007 Past Psychological History: Anxiety Additional Psychological History / Comment(s): Pt resides with his spouse and 2 grown children. He is independent. He uses no assistive device. He has DEDE and his CPAP is broken so he is not using it at this time. He drives. 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 Was a tobacco smoker briefly more than 20 years ago. No significant alcohol use. No recreational drugs use. No experience. No recent travel history. No animal exposures. Smoking Status: Former smoker Past Alcohol Use History: Rare Additional Past Alcohol Use History / Comment(s): Pt states he has not smoked for 25 yrs and when he did it was only on occasion-socially. Past Drug Use History: None Reported - Past Family History Father Family Medical History: Coronary Artery Disease (CAD) Additional Family Medical History / Comment(s): Father had triple bypass. He committed suicide. Mother Family Medical History: Dementia Additional Family Medical History / Comment(s): Mother at age 72yrs. Medications and Allergies Home Medications Medication Instructions Recorded Confirmed Type Fenofibrate Nanocrystallized 145 mg PO HS 10/27/13 09/21/17 History [Tricor] lamoTRIgine [LaMICtal] 50 mg PO HS 10/27/13 09/21/17 History Insulin Glargine/Lixisenatide 44 units SQ QAM 08/10/17 09/21/17 History [Soliqua 100 Unit-33 Mcg/ml Pen] metFORMIN HCL 1,000 mg PO BID #0 08/11/17 09/21/17 Rx Clopidogrel [Plavix] 75 mg PO DAILY tab 08/26/17 09/21/17 Rx Atorvastatin [Lipitor] 40 mg PO HS 09/21/17 09/21/17 History rOPINIRole HCL [Requip] 1 mg PO HS 09/21/17 09/21/17 History Allergies Allergy/AdvReac Type Severity Reaction Status Date / Time Penicillins Allergy Unknown Verified 09/21/17 09:00 Childhood Physical Exam Vitals: Vital Signs Temp Pulse Resp BP Pulse Ox 09/21/17 12:30 98 25 H 122/80 99 09/21/17 12:12 98 09/21/17 12:02 95 09/21/17 12:00 97.6 F 94 19 104/62 98 09/21/17 11:30 96 24 113/70 99 09/21/17 11:00 95 24 105/55 99 09/21/17 10:30 94 19 103/68 98 09/21/17 10:00 96 23 107/61 99 09/21/17 09:30 96 26 H 104/66 99 09/21/17 09:00 97 27 H 107/68 99 09/21/17 08:30 97.6 F 96 23 91/69 98 09/21/17 08:26 94 09/21/17 08:11 96 09/21/17 08:00 93 26 H 98/70 98 09/21/17 07:30 93 27 H 95/76 99 09/21/17 07:00 94 25 H 92/64 98 09/21/17 06:30 97 29 H 98/59 98 09/21/17 06:00 98 26 H 88/51 97 09/21/17 05:00 96 25 H 97/63 97 09/21/17 04:30 98 20 89/63 98 09/21/17 04:00 97.5 F L 98 26 H 89/63 98 09/21/17 03:30 97.7 F 100 21 94/48 95 09/21/17 03:24 102 H 25 H 09/21/17 02:52 97 F L 101 H 28 H 94/64 99 09/21/17 02:39 97.5 F L 28 H 09/21/17 02:30 108 H 09/21/17 02:06 100 09/21/17 01:49 101 H 32 H 101/68 99 09/21/17 01:06 96.9 F L 92 36 H 92/52 09/21/17 00:43 90 36 H 92/42 100 09/21/17 00:40 93 09/21/17 00:21 94 36 H 74/40 100 09/21/17 00:06 72/37 96 09/21/17 00:00 89 09/20/17 23:36 26 H 09/20/17 23:09 97.8 F 105 H 22 106/55 98 Intake and Output 09/20/17 09/21/17 09/21/17 22:59 06:59 14:59 Intake Total 400.129 746 Output Total 365 850 Balance 35.129 -104 Intake: IV 300 650 Cefepime 2 gm In Sodium 50 Chloride 0.9% 50 ml @ 100 mls/hr IVPB Q12HR [facility] Rx #:[id number] Magnesium Sulfate-D5w Pmx 200 1 gm In Dextrose/Water 1 100ml.bag @ 100 mls/hr IVPB Q1H [facility] Rx#: [id number] Sodium Chloride 0.9% 1, 300 400 000 ml @ 100 mls/hr IV . Q10H [facility] Rx#:[id number] Intake, IV Titration 100.129 96 Amount Heparin Sod,Pork in 0.45% 99.379 NaCl 25,000 unit In 0.45 % NaCl 1 500ml.bag @ 18 UNITS/KG/HR 35.92 mls/hr IV .[id number] [facility] Rx#: [id number] Norepinephrin 4 mg-0.9% 0.75 96 Ns Pmx 4 mg In 250 ml @ Titrate IV .Q0M [facility] Rx#: [id number] Output: Urine 365 850 Other: Voiding Method Indwelling Catheter Indwelling Catheter # Bowel Movements 1 Weight 100.9 kg 100.9 kg Physical Exam: Revealed a 52-year-old white male, in mild respiratory distress, anxious. Head: Atraumatic, normocephalic. HEENT:[Neck is supple.] [No neck masses.] [No thyromegaly.] [No JVD.] Dry mucous membranes, PERRLA, EOMI. Chest: [Crackles and rhonchi and wheezes noted bilaterally. Symmetrical chest expansion, no chest wall tenderness..] Cardiac Exam: [Normal S1 and S2, no S3 gallop, no murmur.] Abdomen: [Soft, nontender, no megaly, no rebound, no guarding, normal bowel sounds.] Extremities: [No clubbing, no edema, no cyanosis.] Neurological Exam: [No focal neurologic deficit.] Lymphatics: No lymphadenopathy. Psychiatric: Normal mood affect and mental status examination. Skin: Left hand small laceration is noted between the thumb and first finger with some scabbing, no fluctuance, no redness, no pus was noted, puncture garza noted on the lateral aspect of the left hand posteriorly. Results - Laboratory Findings CBC and BMP: 09/21/17 04:40 09/21/17 11:52 PT/INR, D-dimer PT 12.8 sec (9.0-12.0) H 09/20/17 23:26 INR 1.4 (<1.2) H 09/20/17 23:26 D-Dimer 12.09 mg/L FEU (<0.60) H 09/20/17 23:26 Abnormal lab findings: Abnormal Labs 09/20/17 09/20/17 09/20/17 23:26 23:26 23:26 WBC RBC Hgb Hct RDW Plt Count Neutrophils # (Manual) Lymphocytes # (Manual) Myelocytes # (Manual) PT 12.8 H INR 1.4 H APTT 32.2 H D-Dimer 12.09 H Sodium 135 L Potassium Carbon Dioxide 16 L BUN 28 H Creatinine 3.20 H Glucose 190 H POC Glucose (mg/dL) Plasma Lactic Acid Alexei 6.3 H* Calcium Phosphorus Magnesium Delta Bilirubin 0.9 H Alkaline Phosphatase 133 H Total Protein 6.2 L Urine Protein Urine Glucose (UA) Urine Ketones Urine WBC Hyaline Casts Urine Mucus 06/24/18 06/24/18 06/25/18 23:26 23:52 00:32 WBC RBC Hgb 12.7 L Hct 38.9 L RDW 16.4 H Plt Count Neutrophils # (Manual) Lymphocytes # (Manual) 0.58 L Myelocytes # (Manual) PT INR APTT D-Dimer Sodium Potassium Carbon Dioxide BUN Creatinine Glucose POC Glucose (mg/dL) 200 H Plasma Lactic Acid Alexei Calcium Phosphorus Magnesium Delta Bilirubin Alkaline Phosphatase Total Protein Urine Protein 1+ H Urine Glucose (UA) 2+ H Urine Ketones Trace H Urine WBC 6 H Hyaline Casts 8 H Urine Mucus Occasional H 09/21/17 09/21/17 09/21/17 03:25 04:32 04:33 WBC RBC Hgb Hct RDW Plt Count Neutrophils # (Manual) Lymphocytes # (Manual) Myelocytes # (Manual) PT INR APTT >200.0 H* D-Dimer Sodium Potassium Carbon Dioxide BUN Creatinine Glucose POC Glucose (mg/dL) 236 H Plasma Lactic Acid Alexei 8.7 H* Calcium Phosphorus Magnesium Delta Bilirubin Alkaline Phosphatase Total Protein Urine Protein Urine Glucose (UA) Urine Ketones Urine WBC Hyaline Casts Urine Mucus 09/21/17 09/21/17 09/21/17 04:40 04:40 06:45 WBC 12.6 H RBC 4.26 L Hgb 12.2 L Hct 38.1 L RDW 16.3 H Plt Count 95 L Neutrophils # (Manual) 12.00 H Lymphocytes # (Manual) 0.50 L Myelocytes # (Manual) 0.13 H PT INR APTT D-Dimer Sodium 135 L Potassium 5.4 H Carbon Dioxide 15 L BUN 30 H Creatinine 3.10 H Glucose 257 H POC Glucose (mg/dL) 262 H Plasma Lactic Acid Alexei Calcium 8.2 L Phosphorus 6.4 H Magnesium 1.3 L Delta Bilirubin Alkaline Phosphatase Total Protein Urine Protein Urine Glucose (UA) Urine Ketones Urine WBC Hyaline Casts Urine Mucus 09/21/17 09/21/17 09/21/17 08:31 11:20 11:52 WBC RBC Hgb Hct RDW Plt Count Neutrophils # (Manual) Lymphocytes # (Manual) Myelocytes # (Manual) PT INR APTT D-Dimer Sodium 135 L Potassium 5.9 H Carbon Dioxide 14 L BUN 34 H Creatinine 2.70 H Glucose 355 H POC Glucose (mg/dL) 328 H Plasma Lactic Acid Alexei 8.5 H* Calcium 8.2 L Phosphorus Magnesium Delta Bilirubin Alkaline Phosphatase Total Protein Urine Protein Urine Glucose (UA) Urine Ketones Urine WBC Hyaline Casts Urine Mucus 09/21/17 11:52 WBC RBC Hgb Hct RDW Plt Count Neutrophils # (Manual) Lymphocytes # (Manual) Myelocytes # (Manual) PT INR APTT D-Dimer Sodium Potassium Carbon Dioxide BUN Creatinine Glucose POC Glucose (mg/dL) Plasma Lactic Acid Alexei 7.9 H* Calcium Phosphorus Magnesium Delta Bilirubin Alkaline Phosphatase Total Protein Urine Protein Urine Glucose (UA) Urine Ketones Urine WBC Hyaline Casts Urine Mucus - Diagnostic Findings Chest x-ray: image reviewed (No acute process) Assessment and Plan Assessment: 1. Acute sepsis and septic shock, most likely secondary to his recent dog bite. Hence we'll continue IV antibiotics, pressors, fluids, infectious disease consultation is pending. 2. Shortness of breath with chest pain and Elevated d-dimer: Continue IV heparin until able to rule out PE and DVT. Clinically strongly doubt PE, but VQ scan is pending in the meantime we'll continue heparin. 3. Acute kidney injury secondary to sepsis and septic shock 5. Acute asthma exacerbation , presently on bronchodilators and IV Solu-Medrol. 6. Acute gastroenteritis, patient is being checked for C. difficile colitis. 7 multiple comorbidities including diabetes type 2, history of CML, history of coronary artery disease and previous stent placement, and history of peripheral vessel occlusive disease with recent percutaneous superficial femoral artery atherectomy and percutaneous transluminal balloon angioplasty of the left leg in July of 2017. Recommendation: Continue present treatment plan, patient must remain in the ICU , will continue to follow closely, infectious disease and nephrology were both consulted. In the meantime we'll continue bronchodilators, antibiotics empirically, and we'll continue to follow closely. Critical care time is 45 minutes. Time with Patient: Greater than 30
[2017-09-21 13:07] LABS: Glucose,Whole Blood 334 mg/dL (75-99)
[2017-09-21] MEDS: INSULIN REGULAR 100 UNIT in SODIUM CHLORIDE 0.9% 100 ML IV SCH ×2 (13:12→22:06)
[2017-09-21 14:05] LABS: Glucose,Whole Blood 300 mg/dL (75-99)
--- NOTE | 2017-09-21 14:37 | US ---
EXAMINATION TYPE: US venous doppler duplex LE DATE OF EXAM: 09/21/2017 1:45 AM COMPARISON: NONE CLINICAL HISTORY: Pain. Elevated D Dimer; patient's stated he had left leg balloon angioplasty 0 08/25/2017 SIDE PERFORMED: Bilateral TECHNIQUE: The lower extremity deep venous system is examined utilizing real time linear array sonog ed with graded compression, doppler sonography and color-flow sonography. VESSELS IMAGED: Common Femoral Vein Deep Femoral Vein Greater Saphenous Vein * Femoral Vein Popliteal Vein Small Saphenous Vein * Proximal Calf Veins (* superficial vessels) Right Leg: Negative for DVT Left Leg: Negative for DVT Bilateral ABRASIVE BAND WINDER patency is also noted by color flow and PW Arterial Doppler IMPRESSION: No evidence of deep venous thrombosis in both legs. There is patency of the femoral arter ies bilaterally.
[2017-09-21] MEDS ORDERED: SODIUM BICARB 8.4% 50 ML SYR (1 MEQ/ML) IV ONE (15:00)
[2017-09-21] MEDS: SODIUM CHLORIDE 0.45% 1,000 ML with SODIUM BICARB (1 MEQ/ML) 100 ML IV SCH ×2 (15:19)
[2017-09-21 15:36] LABS: Glucose,Whole Blood 323 mg/dL (75-99)
--- NOTE | 2017-09-21 16:47 | CONS ---
CONSULTATION REASON FOR CONSULTATION: Renal failure. HISTORY OF PRESENT ILLNESS: Patient is a 52-year-old male who was admitted to the hospital with complaints of shortness of breath and feeling tired and fatigued. The patient also had fever. He has an underlying history of CML, status for bone marrow transplant. Currently off of immunosuppression for about a year now. The patient was admitted with history of a dog bite on his left hand. He was quite hypotensive on admission with a temperature of 102 degrees Fahrenheit. The patient was initially on BiPAP. He is now down to oxygen via nasal cannula. The patient admits to taking 2 doses of Motrin prior to admission. He denies any prior history of diseases. He is currently on about 4 mcg of Levophed and maintained on IV fluids. He had 3 L of fluids in the ER. Serum creatinine was 3.2 mg/dL on initial admission. It is now down to 2.7. The urine output has been at about 200-150 mL an hour. PAST MEDICAL HISTORY: History of CML status post bone marrow transplant, coronary artery disease, asthma, osteoarthritis, previous history of pneumonia, type 2 diabetes, sleep apnea, hypothyroidism, history of carpal tunnel disease bilaterally. PAST SURGICAL HISTORY: Cardiac catheterization and bone marrow transplant, left knee arthroplasty, hemorrhoidectomy, colonoscopy, vasectomy, atherectomy with balloon angioplasty in July. SOCIAL HISTORY: Patient is a former smoker. No history of drug abuse and alcohol abuse. REVIEW OF SYSTEMS: As per HPI. MEDICATIONS: Prior to admission included TriCor, Lamictal, Plavix, Lipitor, Requip, insulin. ALLERGIES: Include PHYSICAL EXAMINATION: On examination, patient is currently dyspneic. He is not in severe acute distress. Overall he states he is feeling better than on admission. Blood pressure this morning was 95/76, heart rate of 98 per minute. Patient is afebrile. Examination of the heart: S1, S2. Examination lungs: Bilateral breath sounds are heard. Bilateral crackles are heard as well. Abdomen is soft, nontender. Examination lower extremity shows no evidence of edema. There is an erythema and induration noted on the left hand at the site of the dog bite. EMERGENCY MAN exam is grossly intact. LABS: From this morning show sodium 137, potassium 5.4, BUN 30, serum creatinine 3.1, CO2 15, lactic acid at 8.7, phosphorus 6.4, magnesium 1.3. ASSESSMENT: 1. Acute kidney injury secondary to sepsis and hypoperfusion, currently nonoliguric. Patient has received about 3 L of fluid bolus. He is slightly hypervolemic. I will give him one dose of Lasix. We will follow up on the results of the chest x-ray done this morning. 2. Metabolic acidosis secondary to lactic acidosis and renal failure. Will start patient on IV bicarb. 3. Hyperkalemia associated with acute kidney injury and acidosis and use of NSAIDs prior to admission. No active GI bleed noted. I will give him a dose of IV Lasix which will also help with hyperkalemia and the volume overload. 4. Respiratory failure, initially on BiPAP, currently on oxygen via nasal cannula. Patient's D-dimer was elevated. He is currently maintained on IV heparin. 5. Acute asthma exacerbation. 6. History of CML status post bone marrow transplant. 7. Diarrhea, rule out C diff colitis. 8. Dog bite left hand, maintained on empiric antibiotics. 9. PLAN: Lasix x1, repeat a BMP at noon and consider IV bicarb depending on the acidosis. I will follow up on the results of the chest x-ray as well. Thank you for this consultation. We will continue to follow the patient with you during his hospitalization. MMODL / IJN: [id number] /
[2017-09-21 17:21] LABS: Glucose,Whole Blood 258 mg/dL (75-99)
--- NOTE | 2017-09-21 18:15 | P.CONS ---
History of Present Illness - Reason for Consult Consult date: 09/21/17 CML, s/p Allo SCT Requesting physician: Gume Rodriguez - Chief Complaint N,V, fever, SOB - History of Present Illness Pt is a very pleasant cuacasian male pt of Dr. 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 Pt states not being seen at [facility] Dr. Gonzalez for about 1 year, he quit taking his immunosuppressant meds about 1 year ago as well, he denies any symptoms of progressive or new GVHD, he feels that he has been doing good. He did sustain a dog bite to the left hand, progressive redness, swelling and pain, but what brought him to the hospital was fever, nausea, vomiting, SOB and chest pain, progressive over several days, CXR, CT CAP and venous doppler done, pt has not beeen evaluated for PE. At time of exam pt states feeling a little more comfortable but SOB persists, less nausea, no fever today, denies oral irritation, chest pain, abd pain, bloating, diarrhea or constipation, mild lower extremity swelling, no new rash, blistering, his left hand has bruises, puncture garza and lacertaion, no stitches, denies acute pain, rash, GARCIA, numbness or tingling. Review of Systems 10 point ROS as stated in HPI Past Medical History Past Medical History: Asthma, Coronary Artery Disease (CAD), Cancer, Chest Pain / Angina, Diabetes Mellitus, Hyperlipidemia, Hypertension, Osteoarthritis (OA), Pneumonia, Sleep Apnea/CPAP/BIPAP, Thyroid Disorder, Vascular Disorder Additional Past Medical History / Comment(s): CML-chronic anemia, immmunosuppressed, not using CPAP, carpal tunnel bilaterally, previous toe on each foot fx.He has chronic dry mucosa from the [id number] disease especially of the eyes and oral cavity. This necessitated the utilization special contacts and removal of his teeth. History of Any Multi-Drug Resistant Organisms: None Reported Past Surgical History: Heart Catheterization With Stent, Joint Replacement Additional Past Surgical History / Comment(s): BONE MARROW TRANSPLANT 2006, L KNEE scope & REPLACEMENT, SEPTAL SURG, BMTs bilateral ears, hemorrhoidectomy, colonoscopy, vasectomy, recent aortogram, atherectomy with ballon angioplasty . Past Anesthesia/Blood Transfusion Reactions: No Reported Reaction Additional Past Anesthesia/Blood Transfusion Reaction / Comm: Pt has received blood without reaction. Date of Last Stent Placement:: 2007 Past Psychological History: Anxiety Additional Psychological History / Comment(s): Pt resides with his spouse and 2 grown children. He is independent. He uses no assistive device. He has DEDE and his CPAP is broken so he is not using it at this time. He drives. 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 Was a tobacco smoker briefly more than 20 years ago. No significant alcohol use. No recreational drugs use. No experience. No recent travel history. No animal exposures. Smoking Status: Former smoker Past Alcohol Use History: Rare Additional Past Alcohol Use History / Comment(s): Pt states he has not smoked for 25 yrs and when he did it was only on occasion-socially. Past Drug Use History: None Reported - Past Family History Father Family Medical History: Coronary Artery Disease (CAD) Additional Family Medical History / Comment(s): Father had triple bypass. He committed suicide. Mother Family Medical History: Dementia Additional Family Medical History / Comment(s): Mother at age 72yrs. Medications and Allergies Home Medications Medication Instructions Recorded Confirmed Type Fenofibrate Nanocrystallized 145 mg PO HS 10/27/13 09/21/17 History [Tricor] lamoTRIgine [LaMICtal] 50 mg PO HS 10/27/13 09/21/17 History Insulin Glargine/Lixisenatide 44 units SQ QAM 08/10/17 09/21/17 History [Soliqua 100 Unit-33 Mcg/ml Pen] metFORMIN HCL 1,000 mg PO BID #0 08/11/17 09/21/17 Rx Clopidogrel [Plavix] 75 mg PO DAILY tab 08/26/17 09/21/17 Rx Atorvastatin [Lipitor] 40 mg PO HS 09/21/17 09/21/17 History rOPINIRole HCL [Requip] 1 mg PO HS 09/21/17 09/21/17 History Allergies Allergy/AdvReac Type Severity Reaction Status Date / Time Penicillins Allergy Unknown Verified 09/21/17 09:00 Childhood Physical Exam Vitals: Vital Signs Temp Pulse Resp BP Pulse Ox 09/21/17 17:00 103 H 21 113/84 99 09/21/17 16:30 103 H 22 122/73 99 09/21/17 16:00 103 H 17 116/77 99 09/21/17 15:56 100 09/21/17 15:47 98 09/21/17 15:30 98.1 F 99 26 H 105/71 99 09/21/17 15:00 99 21 112/71 97 09/21/17 14:30 98 24 111/70 98 09/21/17 14:00 99 24 121/76 98 09/21/17 13:30 98 17 108/60 99 09/21/17 13:00 94 23 105/64 98 09/21/17 12:30 98 25 H 122/80 99 09/21/17 12:12 98 09/21/17 12:02 95 09/21/17 12:00 97.6 F 94 19 104/62 98 09/21/17 11:30 96 24 113/70 99 09/21/17 11:00 95 24 105/55 99 09/21/17 10:30 94 19 103/68 98 09/21/17 10:00 96 23 107/61 99 09/21/17 09:30 96 26 H 104/66 99 09/21/17 09:00 97 27 H 107/68 99 09/21/17 08:30 97.6 F 96 23 91/69 98 09/21/17 08:26 94 09/21/17 08:11 96 09/21/17 08:00 93 26 H 98/70 98 09/21/17 07:30 93 27 H 95/76 99 09/21/17 07:00 94 25 H 92/64 98 09/21/17 06:30 97 29 H 98/59 98 09/21/17 06:00 98 26 H 88/51 97 09/21/17 05:00 96 25 H 97/63 97 09/21/17 04:30 98 20 89/63 98 09/21/17 04:00 97.5 F L 98 26 H 89/63 98 09/21/17 03:30 97.7 F 100 21 94/48 95 09/21/17 03:24 102 H 25 H 09/21/17 02:52 97 F L 101 H 28 H 94/64 99 06/25/18 02:39 97.5 F L 28 H 09/21/17 02:30 108 H 09/21/17 02:06 100 09/21/17 01:49 101 H 32 H 101/68 99 09/21/17 01:06 96.9 F L 92 36 H 92/52 09/21/17 00:43 90 36 H 92/42 100 09/21/17 00:40 93 09/21/17 00:21 94 36 H 74/40 100 09/21/17 00:06 72/37 96 09/21/17 00:00 89 09/20/17 23:36 26 H 09/20/17 23:09 97.8 F 105 H 22 106/55 98 Intake and Output 09/21/17 09/21/17 09/21/17 06:59 14:59 22:59 Intake Total 521.685 5236.337 342.02 Output Total 365 1575 600 Balance 35.129 696.337 -257.98 Intake: IV 300 1950 300 Cefepime 2 gm In Sodium 50 Chloride 0.9% 50 ml @ 100 mls/hr IVPB Q12HR JADEN Rx #:[id number] Magnesium Sulfate-D5w Pmx 200 1 gm In Dextrose/Water 1 100ml.bag @ 100 mls/hr IVPB Q1H JADEN Rx#: [id number] Sodium Chloride 0.45% 1, 200 000 ml @ 100 mls/hr IV . Q11H JADEN with Sodium Bicarb (1 Meq/ml) 100 ml Rx#:[id number] Sodium Chloride 0.9% 1, 300 700 100 000 ml @ 100 mls/hr IV . Q10H STA Rx#:[id number] Sodium Chloride 0.9% 1, 1000 000 ml @ 999 mls/hr IV . Q1H1M ONE Rx#:[id number] Intake, IV Titration 100.129 321.337 42.02 Amount Heparin Sod,Pork in 0.45% 99.379 206.018 27.93 NaCl 25,000 unit In 0.45 % NaCl 1 500ml.bag @ 18 UNITS/KG/HR 35.92 mls/hr IV .[id number] JADEN Rx#: [id number] Insulin Regular 100 unit 9.444 14.09 In Sodium Chloride 0.9% 100 ml @ Per Protocol IV .Q0M JADEN Rx#:[id number] Norepinephrin 4 mg-0.9% 0.75 105.875 Ns Pmx 4 mg In 250 ml @ Titrate IV .Q0M JADEN Rx#: [id number] Output: Urine 365 1575 600 Other: Voiding Method Indwelling Catheter Indwelling Catheter Indwelling Catheter # Bowel Movements 1 1 Weight 100.9 kg 100.9 kg 100.9 kg - Constitutional General appearance: average body habitus, cooperative, mild distress, obese - EENT Eyes: anicteric sclerae, EOMI ENT: normal oropharynx - Neck Neck: no lymphadenopathy - Respiratory Respiratory: bilateral: CTA - Cardiovascular Heart sounds: normal: S1, S2 leg Peripheral Edema: bilateral: 1+ - Gastrointestinal General gastrointestinal: no absent bowel sounds, no decreased bowel sounds, no distended, no hepatomegaly, no hyperactive bowel sounds, normal bowel sounds, no organomegaly, no rigid, no scaphoid, soft, no splenomegaly, no tenderness, no umbilical hernia, no ventral hernia - Integumentary Integumentary: pale - Neurologic Neurologic: CNII-XII intact - Musculoskeletal Musculoskeletal: strength equal bilaterally - Psychiatric Psychiatric: A&O x's 3, appropriate affect, intact judgment & insight Results CBC & Chem 7: 09/21/17 04:40 09/21/17 11:52 Labs: Abnormal Lab Results - Last 24 Hours (Table) 09/20/17 09/20/17 09/20/17 Range/Units 23:26 23:26 23:26 WBC (3.8-10.6) k/uL RBC (4.30-5.90) m/uL Hgb (13.0-17.5) gm/dL Hct (39.0-53.0) % RDW (11.5-15.5) % Plt Count (150-450) k/uL Neutrophils # (Manual) (1.3-7.7) k/uL Lymphocytes # (Manual) (1.0-4.8) k/uL Myelocytes # (Manual) (0) k/uL PT 12.8 H (9.0-12.0) sec INR 1.4 H (<1.2) APTT 32.2 H (22.0-30.0) sec D-Dimer 12.09 H (<0.60) mg/L FEU Sodium 135 L (137-145) mmol/L Potassium (3.5-5.1) mmol/L Carbon Dioxide 16 L (22-30) mmol/L BUN 28 H (9-20) mg/dL Creatinine 3.20 H (0.66-1.25) mg/dL Glucose 190 H (74-99) mg/dL POC Glucose (mg/dL) (75-99) mg/dL Plasma Lactic Acid Alexei 6.3 H* (0.7-2.0) mmol/L Calcium (8.4-10.2) mg/dL Phosphorus (2.5-4.5) mg/dL Magnesium (1.6-2.3) mg/dL Delta Bilirubin 0.9 H (0.0-0.2) mg/dL Alkaline Phosphatase 133 H (38-126) U/L Total Protein 6.2 L (6.3-8.2) g/dL Urine Protein (Negative) Urine Glucose (UA) (Negative) Urine Ketones (Negative) Urine WBC (0-5) /hpf Hyaline Casts (0-2) /lpf Urine Mucus (None) /hpf 09/20/17 09/20/17 09/21/17 Range/Units 23:26 23:52 00:32 WBC (3.8-10.6) k/uL RBC (4.30-5.90) m/uL Hgb 12.7 L (13.0-17.5) gm/dL Hct 38.9 L (39.0-53.0) % RDW 16.4 H (11.5-15.5) % Plt Count (150-450) k/uL Neutrophils # (Manual) (1.3-7.7) k/uL Lymphocytes # (Manual) 0.58 L (1.0-4.8) k/uL Myelocytes # (Manual) (0) k/uL PT (9.0-12.0) sec INR (<1.2) APTT (22.0-30.0) sec D-Dimer (<0.60) mg/L FEU Sodium (137-145) mmol/L Potassium (3.5-5.1) mmol/L Carbon Dioxide (22-30) mmol/L BUN (9-20) mg/dL Creatinine (0.66-1.25) mg/dL Glucose (74-99) mg/dL POC Glucose (mg/dL) 200 H (75-99) mg/dL Plasma Lactic Acid Alexei (0.7-2.0) mmol/L Calcium (8.4-10.2) mg/dL Phosphorus (2.5-4.5) mg/dL Magnesium (1.6-2.3) mg/dL Delta Bilirubin (0.0-0.2) mg/dL Alkaline Phosphatase (38-126) U/L Total Protein (6.3-8.2) g/dL Urine Protein 1+ H (Negative) Urine Glucose (UA) 2+ H (Negative) Urine Ketones Trace H (Negative) Urine WBC 6 H (0-5) /hpf Hyaline Casts 8 H (0-2) /lpf Urine Mucus Occasional H (None) /hpf 09/21/17 09/21/17 09/21/17 Range/Units 03:25 04:32 04:33 WBC (3.8-10.6) k/uL RBC (4.30-5.90) m/uL Hgb (13.0-17.5) gm/dL Hct (39.0-53.0) % RDW (11.5-15.5) % Plt Count (150-450) k/uL Neutrophils # (Manual) (1.3-7.7) k/uL Lymphocytes # (Manual) (1.0-4.8) k/uL Myelocytes # (Manual) (0) k/uL PT (9.0-12.0) sec INR (<1.2) APTT >200.0 H* (22.0-30.0) sec D-Dimer (<0.60) mg/L FEU Sodium (137-145) mmol/L Potassium (3.5-5.1) mmol/L Carbon Dioxide (22-30) mmol/L BUN (9-20) mg/dL Creatinine (0.66-1.25) mg/dL Glucose (74-99) mg/dL POC Glucose (mg/dL) 236 H (75-99) mg/dL Plasma Lactic Acid Alexei 8.7 H* (0.7-2.0) mmol/L Calcium (8.4-10.2) mg/dL Phosphorus (2.5-4.5) mg/dL Magnesium (1.6-2.3) mg/dL Delta Bilirubin (0.0-0.2) mg/dL Alkaline Phosphatase (38-126) U/L Total Protein (6.3-8.2) g/dL Urine Protein (Negative) Urine Glucose (UA) (Negative) Urine Ketones (Negative) Urine WBC (0-5) /hpf Hyaline Casts (0-2) /lpf Urine Mucus (None) /hpf 09/21/17 09/21/17 09/21/17 Range/Units 04:40 04:40 06:45 WBC 12.6 H (3.8-10.6) k/uL RBC 4.26 L (4.30-5.90) m/uL Hgb 12.2 L (13.0-17.5) gm/dL Hct 38.1 L (39.0-53.0) % RDW 16.3 H (11.5-15.5) % Plt Count 95 L (150-450) k/uL Neutrophils # (Manual) 12.00 H (1.3-7.7) k/uL Lymphocytes # (Manual) 0.50 L (1.0-4.8) k/uL Myelocytes # (Manual) 0.13 H (0) k/uL PT (9.0-12.0) sec INR (<1.2) APTT (22.0-30.0) sec D-Dimer (<0.60) mg/L FEU Sodium 135 L (137-145) mmol/L Potassium 5.4 H (3.5-5.1) mmol/L Carbon Dioxide 15 L (22-30) mmol/L BUN 30 H (9-20) mg/dL Creatinine 3.10 H (0.66-1.25) mg/dL Glucose 257 H (74-99) mg/dL POC Glucose (mg/dL) 262 H (75-99) mg/dL Plasma Lactic Acid Alexei (0.7-2.0) mmol/L Calcium 8.2 L (8.4-10.2) mg/dL Phosphorus 6.4 H (2.5-4.5) mg/dL Magnesium 1.3 L (1.6-2.3) mg/dL Delta Bilirubin (0.0-0.2) mg/dL Alkaline Phosphatase (38-126) U/L Total Protein (6.3-8.2) g/dL Urine Protein (Negative) Urine Glucose (UA) (Negative) Urine Ketones (Negative) Urine WBC (0-5) /hpf Hyaline Casts (0-2) /lpf Urine Mucus (None) /hpf 09/21/17 09/21/17 09/21/17 Range/Units 08:31 11:20 11:52 WBC (3.8-10.6) k/uL RBC (4.30-5.90) m/uL Hgb (13.0-17.5) gm/dL Hct (39.0-53.0) % RDW (11.5-15.5) % Plt Count (150-450) k/uL Neutrophils # (Manual) (1.3-7.7) k/uL Lymphocytes # (Manual) (1.0-4.8) k/uL Myelocytes # (Manual) (0) k/uL PT (9.0-12.0) sec INR (<1.2) APTT 121.9 H* (22.0-30.0) sec D-Dimer (<0.60) mg/L FEU Sodium (137-145) mmol/L Potassium (3.5-5.1) mmol/L Carbon Dioxide (22-30) mmol/L BUN (9-20) mg/dL Creatinine (0.66-1.25) mg/dL Glucose (74-99) mg/dL POC Glucose (mg/dL) 328 H (75-99) mg/dL Plasma Lactic Acid Alexei 8.5 H* (0.7-2.0) mmol/L Calcium (8.4-10.2) mg/dL Phosphorus (2.5-4.5) mg/dL Magnesium (1.6-2.3) mg/dL Delta Bilirubin (0.0-0.2) mg/dL Alkaline Phosphatase (38-126) U/L Total Protein (6.3-8.2) g/dL Urine Protein (Negative) Urine Glucose (UA) (Negative) Urine Ketones (Negative) Urine WBC (0-5) /hpf Hyaline Casts (0-2) /lpf Urine Mucus (None) /hpf 09/21/17 09/21/17 09/21/17 Range/Units 11:52 11:52 13:04 WBC (3.8-10.6) k/uL RBC (4.30-5.90) m/uL Hgb (13.0-17.5) gm/dL Hct (39.0-53.0) % RDW (11.5-15.5) % Plt Count (150-450) k/uL Neutrophils # (Manual) (1.3-7.7) k/uL Lymphocytes # (Manual) (1.0-4.8) k/uL Myelocytes # (Manual) (0) k/uL PT (9.0-12.0) sec INR (<1.2) APTT (22.0-30.0) sec D-Dimer (<0.60) mg/L FEU Sodium 135 L (137-145) mmol/L Potassium 5.9 H (3.5-5.1) mmol/L Carbon Dioxide 14 L (22-30) mmol/L BUN 34 H (9-20) mg/dL Creatinine 2.70 H (0.66-1.25) mg/dL Glucose 355 H (74-99) mg/dL POC Glucose (mg/dL) 334 H (75-99) mg/dL Plasma Lactic Acid Alexei 7.9 H* (0.7-2.0) mmol/L Calcium 8.2 L (8.4-10.2) mg/dL Phosphorus (2.5-4.5) mg/dL Magnesium (1.6-2.3) mg/dL Delta Bilirubin (0.0-0.2) mg/dL Alkaline Phosphatase (38-126) U/L Total Protein (6.3-8.2) g/dL Urine Protein (Negative) Urine Glucose (UA) (Negative) Urine Ketones (Negative) Urine WBC (0-5) /hpf Hyaline Casts (0-2) /lpf Urine Mucus (None) /hpf 09/21/17 09/21/17 09/21/17 Range/Units 14:02 15:35 16:13 WBC (3.8-10.6) k/uL RBC (4.30-5.90) m/uL Hgb (13.0-17.5) gm/dL Hct (39.0-53.0) % RDW (11.5-15.5) % Plt Count (150-450) k/uL Neutrophils # (Manual) (1.3-7.7) k/uL Lymphocytes # (Manual) (1.0-4.8) k/uL Myelocytes # (Manual) (0) k/uL PT (9.0-12.0) sec INR (<1.2) APTT (22.0-30.0) sec D-Dimer (<0.60) mg/L FEU Sodium (137-145) mmol/L Potassium (3.5-5.1) mmol/L Carbon Dioxide (22-30) mmol/L BUN (9-20) mg/dL Creatinine (0.66-1.25) mg/dL Glucose (74-99) mg/dL POC Glucose (mg/dL) 300 H 323 H (75-99) mg/dL Plasma Lactic Acid Alexei 7.7 H* (0.7-2.0) mmol/L Calcium (8.4-10.2) mg/dL Phosphorus (2.5-4.5) mg/dL Magnesium (1.6-2.3) mg/dL Delta Bilirubin (0.0-0.2) mg/dL Alkaline Phosphatase (38-126) U/L Total Protein (6.3-8.2) g/dL Urine Protein (Negative) Urine Glucose (UA) (Negative) Urine Ketones (Negative) Urine WBC (0-5) /hpf Hyaline Casts (0-2) /lpf Urine Mucus (None) /hpf 09/21/17 Range/Units 17:20 WBC (3.8-10.6) k/uL RBC (4.30-5.90) m/uL Hgb (13.0-17.5) gm/dL Hct (39.0-53.0) % RDW (11.5-15.5) % Plt Count (150-450) k/uL Neutrophils # (Manual) (1.3-7.7) k/uL Lymphocytes # (Manual) (1.0-4.8) k/uL Myelocytes # (Manual) (0) k/uL PT (9.0-12.0) sec INR (<1.2) APTT (22.0-30.0) sec D-Dimer (<0.60) mg/L FEU Sodium (137-145) mmol/L Potassium (3.5-5.1) mmol/L Carbon Dioxide (22-30) mmol/L BUN (9-20) mg/dL Creatinine (0.66-1.25) mg/dL Glucose (74-99) mg/dL POC Glucose (mg/dL) 258 H (75-99) mg/dL Plasma Lactic Acid Alexei (0.7-2.0) mmol/L Calcium (8.4-10.2) mg/dL Phosphorus (2.5-4.5) mg/dL Magnesium (1.6-2.3) mg/dL Delta Bilirubin (0.0-0.2) mg/dL Alkaline Phosphatase (38-126) U/L Total Protein (6.3-8.2) g/dL Urine Protein (Negative) Urine Glucose (UA) (Negative) Urine Ketones (Negative) Urine WBC (0-5) /hpf Hyaline Casts (0-2) /lpf Urine Mucus (None) /hpf Microbiology - Last 24 Hours (Table) 09/21/17 00:32 Urine Culture - Preliminary Urine,Catheterized Chest x-ray: report reviewed CT scan - abdomen: report reviewed CT scan - chest: report reviewed CT scan - pelvis: report reviewed Venous US: report reviewed Assessment and Plan (1) 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 Gonzalez and Dr. Maldonado for monitoring of his disease. Current Visit: No Status: Chronic Priority: Low Code(s): C92.10 - CHRONIC MYELOID LEUK, BCR/ABL-POSITIVE, NOT ACHIEVE REMIS SNOMED Code(s): 23771920 Plan: Immunoglobulin levels ordered as pt is acutely ill. Will supplement with IVIG if appropriate. Doctor attests:I have performed a history and physical exam of this pt, discussed with dictator. I agree with dictated note, documented as a scribe.
[2017-09-21 18:18] LABS: Glucose,Whole Blood 261 mg/dL (75-99)
--- NOTE | 2017-09-21 18:56 | P.CONS ---
History of Present Illness - Reason for Consult Consult date: 09/21/17 - Chief Complaint Fever - History of Present Illness 52-year-old male with a known history of chronic myelogenous leukemia diagnosed in 2003. The patient was treated with chemotherapy by 2005 requiring allogenic stem cell transplantation. Since that time he said difficulties with [id number] disease affecting his eyes and skin skin which has affected his quality of life. He has had plasmapheresis and ongoing follow-up with the [facility] in [place]. Apparently the patient stopped taking his suppressive medications nearly a year ago he was started taking 44 pills a day. Relates being off medications he actually felt a little better and has maintained himself off of medications, his is concerned with the patient is very self-directed. Apparently a few days ago the patient was admitted by a Josef, it is a show dog is up-to-date on all of his vaccines. He suffered a bite to his left hand. Local care was provided but despite that he's been having some increasing difficulties that included increasing fever with chills associated with nausea emesis increasing shortness of breath and feeling quite poorly overall. Consequently the patient did present to the emergency center and was admitted to the intensive care unit with evidence of sepsis and shock requiring vasopressor therapy and fluid resuscitation. With fluid resuscitation could become a bit more short of breath and did have a good fluid response to Lasix. With the rehydration he has had some electrolyte imbalance has had some muscle spasms is comfortable at the moment as far as the musculoskeletal difficulties. He does feel quite poorly overall is improved since admission possibly due to the high dose of methylprednisolone that has been started. Review of Systems 52-year-old male quite uncomfortable HEENT:Denies headache, has is chronic visual change but without acute worsening. Denies sinus or mouth discomforts. Denies neck stiffness or pain. Denies significant oral cavity pain. Denies difficulty on swallowing. Lungs: Developed severe shortness of breath denies have cough or hemoptysis Cardiovascular: Developed shortness of breath that has now improved denies chest pain orthopnea or syncope Gastrointestinal:Denies nausea, vomiting, diarrhea, constipation, hematemesis, melena, hematochezia. No no significant change of bowel habit noticed. Musculoskeletal: denies significant myalgias or arthralgias. No new joint swelling. Denies new back pain. Skin: As per the HPI has chronic [id number] from his prior allogeneic bone marrow transplantation Neuro: Denies headache or visual change. Denies any new onset weakness or difficulty with ambulation. Denies falls or seizures. Psychiatric: Chronic anxiety and depression Endocrine: Chronic fatigue but weight is stable Past Medical History Past Medical History: Asthma, Coronary Artery Disease (CAD), Cancer, Chest Pain / Angina, Diabetes Mellitus, Hyperlipidemia, Hypertension, Osteoarthritis (OA), Pneumonia, Sleep Apnea/CPAP/BIPAP, Thyroid Disorder, Vascular Disorder Additional Past Medical History / Comment(s): CML-chronic anemia, immmunosuppressed, not using CPAP, carpal tunnel bilaterally, previous toe on each foot fx.He has chronic dry mucosa from the wpxsb-[id number] disease especially of the eyes and oral cavity. This necessitated the utilization special contacts and removal of his teeth. History of Any Multi-Drug Resistant Organisms: None Reported Past Surgical History: Heart Catheterization With Stent, Joint Replacement Additional Past Surgical History / Comment(s): BONE MARROW TRANSPLANT 2006, L KNEE scope & REPLACEMENT, SEPTAL SURG, BMTs bilateral ears, hemorrhoidectomy, colonoscopy, vasectomy, recent aortogram, atherectomy with ballon angioplasty . Past Anesthesia/Blood Transfusion Reactions: No Reported Reaction Additional Past Anesthesia/Blood Transfusion Reaction / Comm: Pt has received blood without reaction. Date of Last Stent Placement:: 2007 Past Psychological History: Anxiety Additional Psychological History / Comment(s): Pt resides with his spouse and 2 grown children. He is independent. He uses no assistive device. He has DEDE and his CPAP is broken so he is not using it at this time. He drives. 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 Was a tobacco smoker briefly more than 20 years ago. No significant alcohol use. No recreational drugs use. No experience. No recent travel history. No animal exposures. Smoking Status: Former smoker Past Alcohol Use History: Rare Additional Past Alcohol Use History / Comment(s): Pt states he has not smoked for 25 yrs and when he did it was only on occasion-socially. Past Drug Use History: None Reported - Past Family History Father Family Medical History: Coronary Artery Disease (CAD) Additional Family Medical History / Comment(s): Father had triple bypass. He committed suicide. Mother Family Medical History: Dementia Additional Family Medical History / Comment(s): Mother at age 72yrs. Medications and Allergies Home Medications and Allergies Comment(s): Current Medications Acetaminophen (Tylenol Tab) 650 mg PO Q4HR PRN PRN Reason: Fever and/or Mild Pain Albuterol/Ipratropium (Duoneb 0.5 Mg-3 Mg/3 Ml Soln) 3 ml INHALATION RT-Q4H [facility] Last Admin: 09/21/17 15:45 Dose: 3 ml Atorvastatin Calcium (Lipitor) 40 mg PO HS JADEN Clopidogrel Bisulfate (Plavix) 75 mg PO DAILY JADEN Fenofibrate (Lofibra) 160 mg PO HS JADEN Heparin Sodium (Porcine) (Heparin) 0 unit IV PER PROTOCOL PRN; Protocol PRN Reason: Low PTT Last Admin: 09/21/17 02:43 Dose: 7,983.2 unit Heparin Sodium/Sodium Chloride (25,000 unit/ Sodium Chloride) 500 mls @ 35.92 mls/hr IV .[id number] JADEN; 18 UNITS/KG/HR PRN Reason: Protocol Last Admin: 09/21/17 15:29 Dose: 12 units/kg/hr, 23.94 mls/hr Norepinephrine Bitartrate (Levophed-0.9% Nacl 4 Mg/250ml Pmx) 4 mg in 250 mls @ 0 mls/hr IV .Q0M JADEN; Titrate PRN Reason: Protocol Last Titration: 09/21/17 14:03 Dose: 0 mcg/min, 0 mls/hr Vancomycin HCl 1,750 mg/ (Sodium Chloride) 500 mls @ 167 mls/hr IVPB Q48H [facility] Insulin Human Regular 100 unit (/ Sodium Chloride) 101 mls @ 0 mls/hr IV .Q0M JADEN; Per Protocol PRN Reason: Protocol Last Titration: 09/21/17 15:36 Dose: 11 units/hr, 11.11 mls/hr Sodium Bicarbonate 100 ml/ (Sodium Chloride) 1,100 mls @ 100 mls/hr IV .Q11H [facility] Last Admin: 09/21/17 15:19 Dose: 100 mls/hr Meropenem 1 gm/ Sodium (Chloride) 100 mls @ 100 mls/hr IVPB Q8HR [facility] Lamotrigine (Lamictal) 50 mg PO HS [facility] Methylprednisolone Sodium Succinate (Solu-Medrol) 60 mg IV Q6HR [facility] Last Admin: 09/21/17 18:09 Dose: 60 mg Miscellaneous Information (Magnesium Per Protocol) 1 each MISCELLANE DAILY PRN ; Protocol PRN Reason: Per Protocol Morphine Sulfate (Morphine Sulfate (Inj)) 4 mg IV Q2HR PRN PRN Reason: Pain Scale 8 to 10 Naloxone HCl (Narcan) 0.2 mg IV Q2M PRN PRN Reason: Opioid Reversal Patient's Own Med ( Insulin Glargine/Lixisenatide [ Soliqua 100 Unit-33 Mcg/Ml Pen] 44 Unit 44 units SQ QAM [facility] Last Admin: 09/21/17 12:43 Dose: Not Given Pantoprazole Sodium (Protonix) 40 mg IV DAILY [facility] Last Admin: 09/21/17 09:33 Dose: 40 mg Ropinirole HCl (Requip) 1 mg PO [facility] Home Medications Medication Instructions Recorded Confirmed Type Fenofibrate Nanocrystallized 145 mg PO HS 10/27/13 09/21/17 History [Tricor] lamoTRIgine [LaMICtal] 50 mg PO HS 10/27/13 09/21/17 History Insulin Glargine/Lixisenatide 44 units SQ QAM 08/10/17 09/21/17 History [Soliqua 100 Unit-33 Mcg/ml Pen] metFORMIN HCL 1,000 mg PO BID #0 08/11/17 09/21/17 Rx Clopidogrel [Plavix] 75 mg PO DAILY tab 08/26/17 09/21/17 Rx Atorvastatin [Lipitor] 40 mg PO HS 09/21/17 09/21/17 History rOPINIRole HCL [Requip] 1 mg PO HS 09/21/17 09/21/17 History Allergies Allergy/AdvReac Type Severity Reaction Status Date / Time Penicillins Allergy Unknown Verified 09/21/17 09:00 Childhood Physical Exam Vitals: Vital Signs Temp Pulse Resp BP Pulse Ox 09/21/17 18:00 98 F 100 17 106/65 99 09/21/17 17:30 102 H 23 109/71 99 09/21/17 17:00 103 H 21 113/84 99 09/21/17 16:30 103 H 22 122/73 99 09/21/17 16:00 103 H 17 116/77 99 09/21/17 15:56 100 09/21/17 15:47 98 09/21/17 15:30 98.1 F 99 26 H 105/71 99 09/21/17 15:00 99 21 112/71 97 09/21/17 14:30 98 24 111/70 98 09/21/17 14:00 99 24 121/76 98 09/21/17 13:30 98 17 108/60 99 09/21/17 13:00 94 23 105/64 98 09/21/17 12:30 98 25 H 122/80 99 09/21/17 12:12 98 09/21/17 12:02 95 09/21/17 12:00 97.6 F 94 19 104/62 98 09/21/17 11:30 96 24 113/70 99 09/21/17 11:00 95 24 105/55 99 09/21/17 10:30 94 19 103/68 98 09/21/17 10:00 96 23 107/61 99 09/21/17 09:30 96 26 H 104/66 99 09/21/17 09:00 97 27 H 107/68 99 09/21/17 08:30 97.6 F 96 23 91/69 98 09/21/17 08:26 94 09/21/17 08:11 96 09/21/17 08:00 93 26 H 98/70 98 09/21/17 07:30 93 27 H 95/76 99 09/21/17 07:00 94 25 H 92/64 98 09/21/17 06:30 97 29 H 98/59 98 09/21/17 06:00 98 26 H 88/51 97 09/21/17 05:00 96 25 H 97/63 97 09/21/17 04:30 98 20 89/63 98 09/21/17 04:00 97.5 F L 98 26 H 89/63 98 09/21/17 03:30 97.7 F 100 21 94/48 95 09/21/17 03:24 102 H 25 H 09/21/17 02:52 97 F L 101 H 28 H 94/64 99 09/21/17 02:39 97.5 F L 28 H 09/21/17 02:30 108 H 09/21/17 02:06 100 09/21/17 01:49 101 H 32 H 101/68 99 09/21/17 01:06 96.9 F L 92 36 H 92/52 09/21/17 00:43 90 36 H 92/42 100 09/21/17 00:40 93 09/21/17 00:21 94 36 H 74/40 100 09/21/17 00:06 72/37 96 09/21/17 00:00 89 09/20/17 23:36 26 H 09/20/17 23:09 97.8 F 105 H 22 106/55 98 Intake and Output 09/21/17 09/21/17 09/21/17 06:59 14:59 22:59 Intake Total 266.515 6323.337 442.02 Output Total 365 1575 895 Balance 35.129 696.337 -452.98 Intake: IV 300 1950 400 Cefepime 2 gm In Sodium 50 Chloride 0.9% 50 ml @ 100 mls/hr IVPB Q12HR JADEN Rx #:[id number] Magnesium Sulfate-D5w Pmx 200 1 gm In Dextrose/Water 1 100ml.bag @ 100 mls/hr IVPB Q1H JADEN Rx#: [id number] Sodium Chloride 0.45% 1, 300 000 ml @ 100 mls/hr IV . Q11H JADEN with Sodium Bicarb (1 Meq/ml) 100 ml Rx#:[id number] Sodium Chloride 0.9% 1, 300 700 100 000 ml @ 100 mls/hr IV . Q10H STA Rx#:[id number] Sodium Chloride 0.9% 1, 1000 000 ml @ 999 mls/hr IV . Q1H1M ONE Rx#:[id number] Intake, IV Titration 100.129 321.337 42.02 Amount Heparin Sod,Pork in 0.45% 99.379 206.018 27.93 NaCl 25,000 unit In 0.45 % NaCl 1 500ml.bag @ 18 UNITS/KG/HR 35.92 mls/hr IV .[id number] JADEN Rx#: [id number] Insulin Regular 100 unit 9.444 14.09 In Sodium Chloride 0.9% 100 ml @ Per Protocol IV .Q0M JADEN Rx#:[id number] Norepinephrin 4 mg-0.9% 0.75 105.875 Ns Pmx 4 mg In 250 ml @ Titrate IV .Q0M JADEN Rx#: [id number] Output: Urine 365 1575 895 Other: Voiding Method Indwelling Catheter Indwelling Catheter Indwelling Catheter # Bowel Movements 1 1 Weight 100.9 kg 100.9 kg 100.9 kg 52-year-old male seems to be somewhat uncomfortable HEENT: Anicteric conjunctiva irritated and dry nasal mucosa grossly intact without significant lesions, there is no thrush. Poor dentition. Place Neck: The neck is supple without significant lymphadenopathy or thyromegaly. Lungs: Symmetrical air entry is noted expiratory wheezes are scattered no amy bronchial sounds no dullness or egophony Heart: Regular rate and rhythm with an audible S1-S2, no S3 no S4. There is no significant murmur click or rub, PMI was nondisplaced. Abdomen: Positive bowel sounds soft minimal tenderness without palpable masses or organomegaly. There was no guarding or rebound. Extremities: The right upper extremity is intact without difficulty. The upper extremity as the dog bite left hand. There is some bruising around the lateral surface of the hand but he has on heparin the INR has been elevated the scratch the base of the thumb is without bleeding. There is not a significant amount of ascending erythema and there is no lymphadenopathy epitrochlear or axillary this time. No other enlarged lymph nodes are noted is have chronic dryness to his skin Neuro: Awake alert oriented to person place and time. There are no acute new gross focal sensory motor deficits. Results CBC & Chem 7: 09/21/17 04:40 09/21/17 11:52 Labs: Abnormal Lab Results - Last 24 Hours (Table) 09/20/17 09/20/17 09/20/17 Range/Units 23:26 23:26 23:26 WBC (3.8-10.6) k/uL RBC (4.30-5.90) m/uL Hgb (13.0-17.5) gm/dL Hct (39.0-53.0) % RDW (11.5-15.5) % Plt Count (150-450) k/uL Neutrophils # (Manual) (1.3-7.7) k/uL Lymphocytes # (Manual) (1.0-4.8) k/uL Myelocytes # (Manual) (0) k/uL PT 12.8 H (9.0-12.0) sec INR 1.4 H (<1.2) APTT 32.2 H (22.0-30.0) sec D-Dimer 12.09 H (<0.60) mg/L FEU Sodium 135 L (137-145) mmol/L Potassium (3.5-5.1) mmol/L Carbon Dioxide 16 L (22-30) mmol/L BUN 28 H (9-20) mg/dL Creatinine 3.20 H (0.66-1.25) mg/dL Glucose 190 H (74-99) mg/dL POC Glucose (mg/dL) (75-99) mg/dL Plasma Lactic Acid Alexei 6.3 H* (0.7-2.0) mmol/L Calcium (8.4-10.2) mg/dL Phosphorus (2.5-4.5) mg/dL Magnesium (1.6-2.3) mg/dL Delta Bilirubin 0.9 H (0.0-0.2) mg/dL Alkaline Phosphatase 133 H (38-126) U/L Total Protein 6.2 L (6.3-8.2) g/dL Urine Protein (Negative) Urine Glucose (UA) (Negative) Urine Ketones (Negative) Urine WBC (0-5) /hpf Hyaline Casts (0-2) /lpf Urine Mucus (None) /hpf 09/20/17 09/20/17 09/21/17 Range/Units 23:26 23:52 00:32 WBC (3.8-10.6) k/uL RBC (4.30-5.90) m/uL Hgb 12.7 L (13.0-17.5) gm/dL Hct 38.9 L (39.0-53.0) % RDW 16.4 H (11.5-15.5) % Plt Count (150-450) k/uL Neutrophils # (Manual) (1.3-7.7) k/uL Lymphocytes # (Manual) 0.58 L (1.0-4.8) k/uL Myelocytes # (Manual) (0) k/uL PT (9.0-12.0) sec INR (<1.2) APTT (22.0-30.0) sec D-Dimer (<0.60) mg/L FEU Sodium (137-145) mmol/L Potassium (3.5-5.1) mmol/L Carbon Dioxide (22-30) mmol/L BUN (9-20) mg/dL Creatinine (0.66-1.25) mg/dL Glucose (74-99) mg/dL POC Glucose (mg/dL) 200 H (75-99) mg/dL Plasma Lactic Acid Alexei (0.7-2.0) mmol/L Calcium (8.4-10.2) mg/dL Phosphorus (2.5-4.5) mg/dL Magnesium (1.6-2.3) mg/dL Delta Bilirubin (0.0-0.2) mg/dL Alkaline Phosphatase (38-126) U/L Total Protein (6.3-8.2) g/dL Urine Protein 1+ H (Negative) Urine Glucose (UA) 2+ H (Negative) Urine Ketones Trace H (Negative) Urine WBC 6 H (0-5) /hpf Hyaline Casts 8 H (0-2) /lpf Urine Mucus Occasional H (None) /hpf 09/21/17 09/21/17 09/21/17 Range/Units 03:25 04:32 04:33 WBC (3.8-10.6) k/uL RBC (4.30-5.90) m/uL Hgb (13.0-17.5) gm/dL Hct (39.0-53.0) % RDW (11.5-15.5) % Plt Count (150-450) k/uL Neutrophils # (Manual) (1.3-7.7) k/uL Lymphocytes # (Manual) (1.0-4.8) k/uL Myelocytes # (Manual) (0) k/uL PT (9.0-12.0) sec INR (<1.2) APTT >200.0 H* (22.0-30.0) sec D-Dimer (<0.60) mg/L FEU Sodium (137-145) mmol/L Potassium (3.5-5.1) mmol/L Carbon Dioxide (22-30) mmol/L BUN (9-20) mg/dL Creatinine (0.66-1.25) mg/dL Glucose (74-99) mg/dL POC Glucose (mg/dL) 236 H (75-99) mg/dL Plasma Lactic Acid Alexei 8.7 H* (0.7-2.0) mmol/L Calcium (8.4-10.2) mg/dL Phosphorus (2.5-4.5) mg/dL Magnesium (1.6-2.3) mg/dL Delta Bilirubin (0.0-0.2) mg/dL Alkaline Phosphatase (38-126) U/L Total Protein (6.3-8.2) g/dL Urine Protein (Negative) Urine Glucose (UA) (Negative) Urine Ketones (Negative) Urine WBC (0-5) /hpf Hyaline Casts (0-2) /lpf Urine Mucus (None) /hpf 09/21/17 09/21/17 09/21/17 Range/Units 04:40 04:40 06:45 WBC 12.6 H (3.8-10.6) k/uL RBC 4.26 L (4.30-5.90) m/uL Hgb 12.2 L (13.0-17.5) gm/dL Hct 38.1 L (39.0-53.0) % RDW 16.3 H (11.5-15.5) % Plt Count 95 L (150-450) k/uL Neutrophils # (Manual) 12.00 H (1.3-7.7) k/uL Lymphocytes # (Manual) 0.50 L (1.0-4.8) k/uL Myelocytes # (Manual) 0.13 H (0) k/uL PT (9.0-12.0) sec INR (<1.2) APTT (22.0-30.0) sec D-Dimer (<0.60) mg/L FEU Sodium 135 L (137-145) mmol/L Potassium 5.4 H (3.5-5.1) mmol/L Carbon Dioxide 15 L (22-30) mmol/L BUN 30 H (9-20) mg/dL Creatinine 3.10 H (0.66-1.25) mg/dL Glucose 257 H (74-99) mg/dL POC Glucose (mg/dL) 262 H (75-99) mg/dL Plasma Lactic Acid Alexei (0.7-2.0) mmol/L Calcium 8.2 L (8.4-10.2) mg/dL Phosphorus 6.4 H (2.5-4.5) mg/dL Magnesium 1.3 L (1.6-2.3) mg/dL Delta Bilirubin (0.0-0.2) mg/dL Alkaline Phosphatase (38-126) U/L Total Protein (6.3-8.2) g/dL Urine Protein (Negative) Urine Glucose (UA) (Negative) Urine Ketones (Negative) Urine WBC (0-5) /hpf Hyaline Casts (0-2) /lpf Urine Mucus (None) /hpf 09/21/17 09/21/17 09/21/17 Range/Units 08:31 11:20 11:52 WBC (3.8-10.6) k/uL RBC (4.30-5.90) m/uL Hgb (13.0-17.5) gm/dL Hct (39.0-53.0) % RDW (11.5-15.5) % Plt Count (150-450) k/uL Neutrophils # (Manual) (1.3-7.7) k/uL Lymphocytes # (Manual) (1.0-4.8) k/uL Myelocytes # (Manual) (0) k/uL PT (9.0-12.0) sec INR (<1.2) APTT 121.9 H* (22.0-30.0) sec D-Dimer (<0.60) mg/L FEU Sodium (137-145) mmol/L Potassium (3.5-5.1) mmol/L Carbon Dioxide (22-30) mmol/L BUN (9-20) mg/dL Creatinine (0.66-1.25) mg/dL Glucose (74-99) mg/dL POC Glucose (mg/dL) 328 H (75-99) mg/dL Plasma Lactic Acid Alexei 8.5 H* (0.7-2.0) mmol/L Calcium (8.4-10.2) mg/dL Phosphorus (2.5-4.5) mg/dL Magnesium (1.6-2.3) mg/dL Delta Bilirubin (0.0-0.2) mg/dL Alkaline Phosphatase (38-126) U/L Total Protein (6.3-8.2) g/dL Urine Protein (Negative) Urine Glucose (UA) (Negative) Urine Ketones (Negative) Urine WBC (0-5) /hpf Hyaline Casts (0-2) /lpf Urine Mucus (None) /hpf 09/21/17 09/21/17 09/21/17 Range/Units 11:52 11:52 13:04 WBC (3.8-10.6) k/uL RBC (4.30-5.90) m/uL Hgb (13.0-17.5) gm/dL Hct (39.0-53.0) % RDW (11.5-15.5) % Plt Count (150-450) k/uL Neutrophils # (Manual) (1.3-7.7) k/uL Lymphocytes # (Manual) (1.0-4.8) k/uL Myelocytes # (Manual) (0) k/uL PT (9.0-12.0) sec INR (<1.2) APTT (22.0-30.0) sec D-Dimer (<0.60) mg/L FEU Sodium 135 L (137-145) mmol/L Potassium 5.9 H (3.5-5.1) mmol/L Carbon Dioxide 14 L (22-30) mmol/L BUN 34 H (9-20) mg/dL Creatinine 2.70 H (0.66-1.25) mg/dL Glucose 355 H (74-99) mg/dL POC Glucose (mg/dL) 334 H (75-99) mg/dL Plasma Lactic Acid Alexei 7.9 H* (0.7-2.0) mmol/L Calcium 8.2 L (8.4-10.2) mg/dL Phosphorus (2.5-4.5) mg/dL Magnesium (1.6-2.3) mg/dL Delta Bilirubin (0.0-0.2) mg/dL Alkaline Phosphatase (38-126) U/L Total Protein (6.3-8.2) g/dL Urine Protein (Negative) Urine Glucose (UA) (Negative) Urine Ketones (Negative) Urine WBC (0-5) /hpf Hyaline Casts (0-2) /lpf Urine Mucus (None) /hpf 09/21/17 09/21/17 09/21/17 Range/Units 14:02 15:35 16:13 WBC (3.8-10.6) k/uL RBC (4.30-5.90) m/uL Hgb (13.0-17.5) gm/dL Hct (39.0-53.0) % RDW (11.5-15.5) % Plt Count (150-450) k/uL Neutrophils # (Manual) (1.3-7.7) k/uL Lymphocytes # (Manual) (1.0-4.8) k/uL Myelocytes # (Manual) (0) k/uL PT (9.0-12.0) sec INR (<1.2) APTT (22.0-30.0) sec D-Dimer (<0.60) mg/L FEU Sodium (137-145) mmol/L Potassium (3.5-5.1) mmol/L Carbon Dioxide (22-30) mmol/L BUN (9-20) mg/dL Creatinine (0.66-1.25) mg/dL Glucose (74-99) mg/dL POC Glucose (mg/dL) 300 H 323 H (75-99) mg/dL Plasma Lactic Acid Alexei 7.7 H* (0.7-2.0) mmol/L Calcium (8.4-10.2) mg/dL Phosphorus (2.5-4.5) mg/dL Magnesium (1.6-2.3) mg/dL Delta Bilirubin (0.0-0.2) mg/dL Alkaline Phosphatase (38-126) U/L Total Protein (6.3-8.2) g/dL Urine Protein (Negative) Urine Glucose (UA) (Negative) Urine Ketones (Negative) Urine WBC (0-5) /hpf Hyaline Casts (0-2) /lpf Urine Mucus (None) /hpf 09/21/17 09/21/17 Range/Units 17:20 18:15 WBC (3.8-10.6) k/uL RBC (4.30-5.90) m/uL Hgb (13.0-17.5) gm/dL Hct (39.0-53.0) % RDW (11.5-15.5) % Plt Count (150-450) k/uL Neutrophils # (Manual) (1.3-7.7) k/uL Lymphocytes # (Manual) (1.0-4.8) k/uL Myelocytes # (Manual) (0) k/uL PT (9.0-12.0) sec INR (<1.2) APTT (22.0-30.0) sec D-Dimer (<0.60) mg/L FEU Sodium (137-145) mmol/L Potassium (3.5-5.1) mmol/L Carbon Dioxide (22-30) mmol/L BUN (9-20) mg/dL Creatinine (0.66-1.25) mg/dL Glucose (74-99) mg/dL POC Glucose (mg/dL) 258 H 261 H (75-99) mg/dL Plasma Lactic Acid Alexei (0.7-2.0) mmol/L Calcium (8.4-10.2) mg/dL Phosphorus (2.5-4.5) mg/dL Magnesium (1.6-2.3) mg/dL Delta Bilirubin (0.0-0.2) mg/dL Alkaline Phosphatase (38-126) U/L Total Protein (6.3-8.2) g/dL Urine Protein (Negative) Urine Glucose (UA) (Negative) Urine Ketones (Negative) Urine WBC (0-5) /hpf Hyaline Casts (0-2) /lpf Urine Mucus (None) /hpf Microbiology - Last 24 Hours (Table) 09/21/17 00:32 Urine Culture - Preliminary Urine,Catheterized Laboratory Results WBC 12.6 k/uL (3.8-10.6) H 09/21/17 04:40 RBC 4.26 m/uL (4.30-5.90) L 09/21/17 04:40 Hgb 12.2 gm/dL (13.0-17.5) L 09/21/17 04:40 Hct 38.1 % (39.0-53.0) L 09/21/17 04:40 MCV 89.5 fL (80.0-100.0) 09/21/17 04:40 MCH 28.7 pg (25.0-35.0) 09/21/17 04:40 MCHC 32.1 g/dL (31.0-37.0) 09/21/17 04:40 RDW 16.3 % (11.5-15.5) H 09/21/17 04:40 Plt Count 95 k/uL (150-450) L 09/21/17 04:40 Neutrophils % (Manual) 58 % 09/21/17 04:40 Band Neutrophils % 38 % 09/21/17 04:40 Lymphocytes % (Manual) 4 % 09/21/17 04:40 Monocytes % (Manual) 1 % 09/20/17 23:26 Myelocytes % 1 % 09/21/17 04:40 Neutrophils # (Manual) 12.00 k/uL (1.3-7.7) H 09/21/17 04:40 Lymphocytes # (Manual) 0.50 k/uL (1.0-4.8) L 09/21/17 04:40 Monocytes # (Manual) 0.07 k/uL (0-1.0) 09/20/17 23:26 Myelocytes # (Manual) 0.13 k/uL (0) H 09/21/17 04:40 Nucleated RBCs 0 /100 WBC (0-0) 09/21/17 04:40 Manual Slide Review Performed 09/21/17 04:40 Toxic Vacuolation Present 09/21/17 04:40 Hypochromasia Moderate 09/21/17 04:40 Anisocytosis Slight 09/21/17 04:40 PT 12.8 sec (9.0-12.0) H 09/20/17 23:26 INR 1.4 (<1.2) H 09/20/17 23:26 APTT 121.9 sec (22.0-30.0) H* 09/21/17 11:52 D-Dimer 12.09 mg/L FEU (<0.60) H 09/20/17 23:26 Sodium 135 mmol/L (137-145) L 09/21/17 11:52 Potassium 5.9 mmol/L (3.5-5.1) H 09/21/17 11:52 Chloride 101 mmol/L (98-107) 09/21/17 11:52 Carbon Dioxide 14 mmol/L (22-30) L 09/21/17 11:52 Anion Gap 20 mmol/L 09/21/17 11:52 BUN 34 mg/dL (9-20) H 09/21/17 11:52 Creatinine 2.70 mg/dL (0.66-1.25) H 09/21/17 11:52 Est GFR (CKD-EPI)AfAm 30 (>60 ml/min/1.73 sqM) 09/21/17 11:52 Est GFR (CKD-EPI)NonAf 26 (>60 ml/min/1.73 sqM) 09/21/17 11:52 Glucose 355 mg/dL (74-99) H 09/21/17 11:52 POC Glucose (mg/dL) 261 mg/dL (75-99) H 09/21/17 18:15 POC Glu [employer] ID Jose De Jesus Leonard 09/21/17 18:15 Lactic Ac Sepsis Rflx Y 09/21/17 08:50 Plasma Lactic Acid Alexei 7.7 mmol/L (0.7-2.0) H* 09/21/17 16:13 Calcium 8.2 mg/dL (8.4-10.2) L 09/21/17 11:52 Phosphorus 6.4 mg/dL (2.5-4.5) H 09/21/17 04:40 Magnesium 1.3 mg/dL (1.6-2.3) L 09/21/17 04:40 Total Bilirubin 1.3 mg/dL (0.2-1.3) 09/20/17 23:26 Conjugated Bilirubin 0.1 mg/dL (0.0-0.3) 09/20/17 23:26 Unconjugated Bilirubin 0.3 mg/dL (0.0-1.1) 09/20/17 23:26 Delta Bilirubin 0.9 mg/dL (0.0-0.2) H 09/20/17 23:26 AST 48 U/L (17-59) 09/20/17 23:26 ALT 48 U/L (21-72) 09/20/17 23:26 Alkaline Phosphatase 133 U/L (38-126) H 09/20/17 23:26 Troponin I 0.025 ng/mL (0.000-0.034) 09/21/17 04:40 NT-Pro-B Natriuret Pep 8370 pg/mL 09/20/17 23:26 Total Protein 6.2 g/dL (6.3-8.2) L 09/20/17 23:26 Albumin 3.7 g/dL (3.5-5.0) 09/20/17 23:26 Lipase 81 U/L (23-300) 09/20/17 23:26 Urine Color Yellow 09/21/17 00:32 Urine Appearance Cloudy (Clear) 09/21/17 00:32 Urine pH 5.5 (5.0-8.0) 09/21/17 00:32 Ur Specific [place] 1.017 (1.001-1.035) 09/21/17 00:32 Urine Protein 1+ (Negative) H 09/21/17 00:32 Urine Glucose (UA) 2+ (Negative) H 09/21/17 00:32 Urine Ketones Trace (Negative) H 09/21/17 00:32 Urine Blood Negative (Negative) 09/21/17 00:32 Urine Nitrite Negative (Negative) 09/21/17 00:32 Urine Bilirubin Negative (Negative) 09/21/17 00:32 Urine Urobilinogen <2.0 mg/dL (<2.0) 09/21/17 00:32 Ur Leukocyte Esterase Negative (Negative) 09/21/17 00:32 Urine RBC 1 /hpf (0-5) 09/21/17 00:32 Urine WBC 6 /hpf (0-5) H 09/21/17 00:32 Hyaline Casts 8 /lpf (0-2) H 09/21/17 00:32 Urine Mucus Occasional /hpf (None) H 09/21/17 00:32 Acetone, Qual Negative (Negative) 09/20/17 23:26 Influenza Type A RNA Not Detected (Not Detectd) 09/20/17 23:40 Influenza Type B (PCR) Not Detected (Not Detectd) 09/20/17 23:40 Blood Type AB Positive 09/21/17 00:15 Blood Type Recheck No 09/21/17 00:15 Antibody Screen NEGATIVE 09/21/17 00:15 Spec Expiration Date 09/24/2017 - 9602 09/21/17 00:15 Microbiology 09/21/17 00:32 Urine,Catheterized Urine Culture - Preliminary Assessment and Plan (1) Dog bite Narrative/Plan: 52-year-old male presents to the emergency center several days after a dog bite that occurred to his left hand. The dog is a show dog and is well vaccinated. By circumstances it appears that the bite was a provoked event. The patient himself has had severe amounts of vaccine over time and believes he is up-to-date with his tetanus vaccine. 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 Antibiotic therapy is being altered to meropenem to ensure coverage as well as continue vancomycin for now until there is further data. Regretfully this pathogen is quite slow-growing immediately difficult to isolate in the near future. For now continue the supportive care and aggressive antibiotic therapy. The patient did have significant respiratory distress earlier was treated with BiPAP and is now on nasal cannula oxygen, may have an improvement from the diuresis. He is receiving intravenous heparin and this is being monitored closely from the pulmonary critical care service. The patient continues to have an elevated lactic acid, it is disproportionate and maybe markedly elevated due to his acute renal failure and may also be impacted by his underlying [id number] disease. If he has further fevers blood culture should be obtained. 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
[2017-09-21 18:59] LABS: Glucose,Whole Blood 276 mg/dL (75-99)
[2017-09-21 19:01] LABS: Potassium 4.5 mmol/L (3.5-5.1)
[2017-09-21 20:10] LABS: Glucose,Whole Blood 286 mg/dL (75-99)
[2017-09-21] MEDS: MEROPENEM 1 GM in SODIUM CHLORIDE 0.9% 100 ML IVPB SCH (20:26)
[2017-09-21] MEDS: lamoTRIgine 25 MG TAB PO SCH (20:29)
[2017-09-21] MEDS ORDERED: FENOFIBRATE 160 MG TAB PO SCH (21:00)
[2017-09-21] MEDS ORDERED: ATORVASTATIN 40 MG TAB PO SCH (21:00)
[2017-09-21 21:01] LABS: Glucose,Whole Blood 265 mg/dL (75-99)
[2017-09-21 22:06] LABS: Glucose,Whole Blood 243 mg/dL (75-99)
[2017-09-21 23:06] LABS: Glucose,Whole Blood 282 mg/dL (75-99)
[2017-09-22] MEDS: methylPREDNISolone SOD SUCCI 125 MG/2 ML VIAL IV SCH ×4 (00:04→18:20)
[2017-09-22 00:08] LABS: Glucose,Whole Blood 258 mg/dL (75-99)
[2017-09-22 01:14] LABS: Glucose,Whole Blood 234 mg/dL (75-99)
[2017-09-22 02:05] LABS: Glucose,Whole Blood 260 mg/dL (75-99)
[2017-09-22 03:06] LABS: Glucose,Whole Blood 255 mg/dL (75-99)
[2017-09-22] MEDS: IPRATROPIUM-ALBUTEROL 3 ML NEB INHALATION SCH ×6 (03:16→23:30)
[2017-09-22 04:06] LABS: Glucose,Whole Blood 218 mg/dL (75-99)
[2017-09-22] MEDS: SODIUM CHLORIDE 0.45% 1,000 ML with SODIUM BICARB (1 MEQ/ML) 100 ML IV SCH ×2 (04:10)
[2017-09-22 04:55] LABS: INR 1.8 (<1.2); Prothrombin Time 16.1 sec (9.0-12.0)
[2017-09-22 05:03] LABS: Glucose,Whole Blood 219 mg/dL (75-99)
[2017-09-22 05:19] LABS: Anisocytosis Slight; HCT 32.5 % (39.0-53.0); MCH 29.4 pg (25.0-35.0); MCHC 33.8 g/dL (31.0-37.0); MCV 86.9 fL (80.0-100.0); Mean Platelet Volume 8.8; Poikilocytosis Slight; RBC 3.74 m/uL (4.30-5.90); RDW 16.7 % (11.5-15.5); WBC 15.8 k/uL (3.8-10.6)
[2017-09-22 05:36] LABS: Albumin 3.2 g/dL (3.5-5.0); Calcium 7.9 mg/dL (8.4-10.2); Magnesium 2.4 mg/dL (1.6-2.3); Phosphorus 3.4 mg/dL (2.5-4.5); Potassium 3.6 mmol/L (3.5-5.1); Total Bilirubin 1.1 mg/dL (0.2-1.3); Total Protein 5.7 g/dL (6.3-8.2)
[2017-09-22 05:37] LABS: Platelet Count 67 k/uL (150-450)
[2017-09-22] MEDS ORDERED: Potassium Replacement Protocol 1 EACH MISC MISCELLANE PRN (05:55)
[2017-09-22] MEDS ORDERED: VANCOMYCIN 1,750 MG in SODIUM CHLORIDE 0.9% 500 ML IVPB SCH (06:00)
[2017-09-22 06:02] LABS: Band Neutrophils % 20 %; Lymphocytes # (M) 0.79 k/uL (1.0-4.8); Monocytes # (M) 0.16 k/uL (0-1.0); Neutrophils % (M) 74 %; Nucleated Red Blood Cells 0 /100 WBC (0-0); Total Cells Counted 100
[2017-09-22 06:03] LABS: Large Platelets Present
[2017-09-22 06:16] LABS: Glucose,Whole Blood 224 mg/dL (75-99)
[2017-09-22 06:56] LABS: Glucose,Whole Blood 234 mg/dL (75-99)
--- NOTE | 2017-09-22 07:51 | XR ---
EXAMINATION TYPE: XR chest 1V DATE OF EXAM: 09/22/2017 HISTORY: Shortness of breath. COMPARISON: 09/21/2017 TECHNIQUE: Single view of the chest is submitted. FINDINGS: Demonstrated are scattered senescent parenchymal change. There is no evidence for focal infiltrate. The heart is stable. Pulmonary venous congestion without overt failure. Hilar and mediastinal structures are within normal limits. Degenerative changes are seen of the dorsal spine. IMPRESSION: 1. Pulmonary venous congestion without overt failure.
[2017-09-22] MEDS: MEROPENEM 1 GM in SODIUM CHLORIDE 0.9% 100 ML IVPB SCH ×2 (08:43→20:26)
[2017-09-22] MEDS: CLOPIDOGREL 75 MG TAB PO SCH (08:44)
[2017-09-22] MEDS: PANTOPRAZOLE 40 MG/10 ML VIAL IV SCH (08:44)
[2017-09-22 08:54] LABS: Glucose,Whole Blood 236 mg/dL (75-99)
[2017-09-22] MEDS ORDERED: POTASSIUM CHLORIDE ER 20 MEQ TAB.ER PO SCH (09:00)
--- NOTE | 2017-09-22 10:08 | P.PN ---
Subjective Progress Note Date: 09/22/17 Principal diagnosis: Acute septic shock and sepsis This is a 52-year-old white male with history of CML and bone marrow transplant in 2006, patient has been on antirejection therapy for quite some time, a year ago stopped taking his anti rejection therapy on his own. Patient is also known to have history of diabetes, hypertension, coronary artery disease and previous stent placement, history of bronchial asthma and obstructive sleep apnea as well as peripheral vessel occlusive disease. Last , which is 4 days ago, patient was bit at his left hand by a showed dog who is supposedly immunized fully. Patient did not seek any medical attention, he just cleaned his wound and placed topical antibiotics on the site of the bite. Patient developed some swelling and redness around the puncture site, there was no evidence of any purulent drainage, and he was happy that the area seems to be healing on its own. Last night, the patient developed fever with a temp as high as 102, shortness of breath, wheezing, diarrhea, nonbloody, some vague abdominal discomfort, episodes of nausea but no vomiting, and significant lower chest and upper abdominal pain. Upon presentation to the ER, his lactic acid was elevated, patient was hypotensive requiring fluid boluses, and he also required levo fed, presently on for mics of levo fed. Patient was admitted with the impression of septic shock and sepsis. Broad-spectrum antibiotics were initiated, presently on vancomycin and cefepime. Patient is also noted to have acute kidney injury. For some reason a VQ scan was ordered, but the patient is presently on heparin, and the clinical history does not suggestive of pulmonary embolism. His shortness of breath is easily explained by his sepsis and his wheezing noted on physical examination. CT of the abdomen without contrast was noted to be unremarkable. Lasix was given earlier since the patient received significant amount of fluid boluses earlier, and his urine output was marginal. During my evaluation, patient was noted to be slightly dyspneic, anxious, and on for mics of levo fed for adequate mean arterial pressure of 70. Patient denies any chest pain, he does have fever and chills, generalized aches, no dysuria, no frequency, no urgency. He does have intermittent episodes of dry hacking cough and wheezing. Chest x-ray on admission and chest x-ray this morning is basically normal. Patient was reevaluated today on 09/22/2017, off pressors, on nasal cannula, in no distress, significant improvement noted in the last 24 hours, his lactic acid today is 2.8. Patient is feeling better, breathing easier, urine output is excellent, continues to have leukocytosis with WBC count of 15.8, PTT is therapeutic at 53.3, electrolytes are significantly improved renal profile is significantly improved with a BUN of 38 creatinine of 1.62, however liver profile seems to be worsening, elevated transaminases were noted. Blood cultures remain negative. Patient was seen by Dr. Hill yesterday, and he was placed on Merrem. Replacing cefepime. Patient remains on vancomycin. Dr. Hill seems to be concerned about the possibility of Capnocytophagia canimorsus which is a very fastidious organism, and will take a long time to grow and cultures. Clinically the patient is better except for the elevated liver enzymes. His breathing is significantly improved. Patient remains on steroids, he is also on heparin, I will likely discontinue heparin if we get to the point where a CT angiogram of the chest can be done once his renal profile improves, my index of suspicion for pulmonary embolism is rather low, venous Doppler was negative, patient did have elevated d-dimer on admission. And the presentation is mostly a presentation of sepsis rather than thromboembolic disease. Chest x-ray this morning showed mild pulmonary venous congestion without overt failure. Urine output is excellent, patient is putting out about 100 mL per hour. He is hemodynamically stable, and norepinephrine was discontinued at 1 PM yesterday. Objective - Vital Signs Vital signs: Vital Signs Temp 98 F 09/22/17 08:00 Pulse 87 09/22/17 09:00 Resp 21 09/22/17 09:00 BP 106/58 09/22/17 09:00 Pulse Ox 97 09/22/17 09:00 Intake & Output 09/21/17 09/22/17 09/22/17 18:59 06:59 18:59 Intake Total 2850.946 1607.609 266.837 Output Total 2595 1850 325 Balance 255.946 -242.391 -58.163 Weight 100.9 kg 102 kg Intake: IV 2450 1200 250 Cefepime 2 gm In Sodium 50 50 Chloride 0.9% 50 ml @ 100 mls/hr IVPB Q12HR [facility] Rx #:[id number] Magnesium Sulfate-D5w Pmx 200 1 gm In Dextrose/Water 1 100ml.bag @ 100 mls/hr IVPB Q1H [facility] Rx#: [id number] Sodium Chloride 0.45% 1, 400 1200 200 000 ml @ 100 mls/hr IV . Q11H [facility] with Sodium Bicarb (1 Meq/ml) 100 ml Rx#:[id number] Sodium Chloride 0.9% 1, 800 000 ml @ 100 mls/hr IV . Q10H [facility] Rx#:[id number] Sodium Chloride 0.9% 1, 1000 000 ml @ 999 mls/hr IV . Q1H1M ONE Rx#:[id number] Intake, IV Titration 400.946 207.609 16.837 Amount Heparin Sod,Pork in 0.45% 233.948 121.296 NaCl 25,000 unit In 0.45 % NaCl 1 500ml.bag @ 18 UNITS/KG/HR 35.92 mls/hr IV .[id number] [facility] Rx#: [id number] Insulin Regular 100 unit 61.123 86.313 16.837 In Sodium Chloride 0.9% 100 ml @ Per Protocol IV .Q0M [facility] Rx#:[id number] Norepinephrin 4 mg-0.9% 105.875 Ns Pmx 4 mg In 250 ml @ Titrate IV .Q0M [facility] Rx#: [id number] Oral 200 Output: Urine 2595 1850 325 Other: Voiding Method Indwelling Catheter Indwelling Catheter # Bowel Movements 1 - Exam Physical Exam: Revealed a 52-year-old white male, in mild respiratory distress, anxious. Head: Atraumatic, normocephalic. HEENT:[Neck is supple.] [No neck masses.] [No thyromegaly.] [No JVD.] Dry mucous membranes, PERRLA, EOMI. Chest: [Crackles and rhonchi and wheezes noted bilaterally. Symmetrical chest expansion, no chest wall tenderness..] Cardiac Exam: [Normal S1 and S2, no S3 gallop, no murmur.] Abdomen: [Soft, nontender, no megaly, no rebound, no guarding, normal bowel sounds.] Extremities: [No clubbing, no edema, no cyanosis.] Neurological Exam: [No focal neurologic deficit.] Lymphatics: No lymphadenopathy. Psychiatric: Normal mood affect and mental status examination. Skin: Left hand small laceration is noted between the thumb and first finger with some scabbing, no fluctuance, no redness, no pus was noted, puncture garza noted on the lateral aspect of the left hand posteriorly. - Labs CBC & Chem 7: 09/22/17 04:28 09/22/17 04:28 Labs: Abnormal Lab Results - Last 24 Hours (Table) 09/21/17 09/21/17 09/21/17 Range/Units 11:20 11:52 11:52 WBC (3.8-10.6) k/uL RBC (4.30-5.90) m/uL Hgb (13.0-17.5) gm/dL Hct (39.0-53.0) % RDW (11.5-15.5) % Plt Count (150-450) k/uL Neutrophils # (Manual) (1.3-7.7) k/uL Lymphocytes # (Manual) (1.0-4.8) k/uL PT (9.0-12.0) sec INR (<1.2) APTT 121.9 H* (22.0-30.0) sec Sodium 135 L (137-145) mmol/L Potassium 5.9 H (3.5-5.1) mmol/L Carbon Dioxide 14 L (22-30) mmol/L BUN 34 H (9-20) mg/dL Creatinine 2.70 H (0.66-1.25) mg/dL Glucose 355 H (74-99) mg/dL POC Glucose (mg/dL) 328 H (75-99) mg/dL Hemoglobin A1c (4.0-6.0) % Plasma Lactic Acid Alexei (0.7-2.0) mmol/L Calcium 8.2 L (8.4-10.2) mg/dL Magnesium (1.6-2.3) mg/dL AST (17-59) U/L ALT (21-72) U/L Total Protein (6.3-8.2) g/dL Albumin (3.5-5.0) g/dL 09/21/17 09/21/17 09/21/17 Range/Units 11:52 11:52 13:04 WBC (3.8-10.6) k/uL RBC (4.30-5.90) m/uL Hgb (13.0-17.5) gm/dL Hct (39.0-53.0) % RDW (11.5-15.5) % Plt Count (150-450) k/uL Neutrophils # (Manual) (1.3-7.7) k/uL Lymphocytes # (Manual) (1.0-4.8) k/uL PT (9.0-12.0) sec INR (<1.2) APTT (22.0-30.0) sec Sodium (137-145) mmol/L Potassium (3.5-5.1) mmol/L Carbon Dioxide (22-30) mmol/L BUN (9-20) mg/dL Creatinine (0.66-1.25) mg/dL Glucose (74-99) mg/dL POC Glucose (mg/dL) 334 H (75-99) mg/dL Hemoglobin A1c 8.0 H (4.0-6.0) % Plasma Lactic Acid Alexei 7.9 H* (0.7-2.0) mmol/L Calcium (8.4-10.2) mg/dL Magnesium (1.6-2.3) mg/dL AST (17-59) U/L ALT (21-72) U/L Total Protein (6.3-8.2) g/dL Albumin (3.5-5.0) g/dL 09/21/17 09/21/17 09/21/17 Range/Units 14:02 15:35 16:13 WBC (3.8-10.6) k/uL RBC (4.30-5.90) m/uL Hgb (13.0-17.5) gm/dL Hct (39.0-53.0) % RDW (11.5-15.5) % Plt Count (150-450) k/uL Neutrophils # (Manual) (1.3-7.7) k/uL Lymphocytes # (Manual) (1.0-4.8) k/uL PT (9.0-12.0) sec INR (<1.2) APTT (22.0-30.0) sec Sodium (137-145) mmol/L Potassium (3.5-5.1) mmol/L Carbon Dioxide (22-30) mmol/L BUN (9-20) mg/dL Creatinine (0.66-1.25) mg/dL Glucose (74-99) mg/dL POC Glucose (mg/dL) 300 H 323 H (75-99) mg/dL Hemoglobin A1c (4.0-6.0) % Plasma Lactic Acid Alexei 7.7 H* (0.7-2.0) mmol/L Calcium (8.4-10.2) mg/dL Magnesium (1.6-2.3) mg/dL AST (17-59) U/L ALT (21-72) U/L Total Protein (6.3-8.2) g/dL Albumin (3.5-5.0) g/dL 09/21/17 09/21/17 09/21/17 Range/Units 17:20 18:15 18:29 WBC (3.8-10.6) k/uL RBC (4.30-5.90) m/uL Hgb (13.0-17.5) gm/dL Hct (39.0-53.0) % RDW (11.5-15.5) % Plt Count (150-450) k/uL Neutrophils # (Manual) (1.3-7.7) k/uL Lymphocytes # (Manual) (1.0-4.8) k/uL PT (9.0-12.0) sec INR (<1.2) APTT (22.0-30.0) sec Sodium (137-145) mmol/L Potassium (3.5-5.1) mmol/L Carbon Dioxide 19 L (22-30) mmol/L BUN (9-20) mg/dL Creatinine (0.66-1.25) mg/dL Glucose (74-99) mg/dL POC Glucose (mg/dL) 258 H 261 H (75-99) mg/dL Hemoglobin A1c (4.0-6.0) % Plasma Lactic Acid Alexei (0.7-2.0) mmol/L Calcium (8.4-10.2) mg/dL Magnesium (1.6-2.3) mg/dL AST (17-59) U/L ALT (21-72) U/L Total Protein (6.3-8.2) g/dL Albumin (3.5-5.0) g/dL 09/21/17 09/21/17 09/21/17 Range/Units 18:29 18:58 19:36 WBC (3.8-10.6) k/uL RBC (4.30-5.90) m/uL Hgb (13.0-17.5) gm/dL Hct (39.0-53.0) % RDW (11.5-15.5) % Plt Count (150-450) k/uL Neutrophils # (Manual) (1.3-7.7) k/uL Lymphocytes # (Manual) (1.0-4.8) k/uL PT (9.0-12.0) sec INR (<1.2) APTT 54.8 H (22.0-30.0) sec Sodium (137-145) mmol/L Potassium (3.5-5.1) mmol/L Carbon Dioxide (22-30) mmol/L BUN (9-20) mg/dL Creatinine (0.66-1.25) mg/dL Glucose (74-99) mg/dL POC Glucose (mg/dL) 276 H (75-99) mg/dL Hemoglobin A1c (4.0-6.0) % Plasma Lactic Acid Alexei 5.2 H* (0.7-2.0) mmol/L Calcium (8.4-10.2) mg/dL Magnesium (1.6-2.3) mg/dL AST (17-59) U/L ALT (21-72) U/L Total Protein (6.3-8.2) g/dL Albumin (3.5-5.0) g/dL 09/21/17 09/21/17 09/21/17 Range/Units 19:49 20:51 22:04 WBC (3.8-10.6) k/uL RBC (4.30-5.90) m/uL Hgb (13.0-17.5) gm/dL Hct (39.0-53.0) % RDW (11.5-15.5) % Plt Count (150-450) k/uL Neutrophils # (Manual) (1.3-7.7) k/uL Lymphocytes # (Manual) (1.0-4.8) k/uL PT (9.0-12.0) sec INR (<1.2) APTT (22.0-30.0) sec Sodium (137-145) mmol/L Potassium (3.5-5.1) mmol/L Carbon Dioxide (22-30) mmol/L BUN (9-20) mg/dL Creatinine (0.66-1.25) mg/dL Glucose (74-99) mg/dL POC Glucose (mg/dL) 286 H 265 H 243 H (75-99) mg/dL Hemoglobin A1c (4.0-6.0) % Plasma Lactic Acid Alexei (0.7-2.0) mmol/L Calcium (8.4-10.2) mg/dL Magnesium (1.6-2.3) mg/dL AST (17-59) U/L ALT (21-72) U/L Total Protein (6.3-8.2) g/dL Albumin (3.5-5.0) g/dL 09/21/17 09/21/17 09/22/17 Range/Units 22:59 23:20 00:06 WBC (3.8-10.6) k/uL RBC (4.30-5.90) m/uL Hgb (13.0-17.5) gm/dL Hct (39.0-53.0) % RDW (11.5-15.5) % Plt Count (150-450) k/uL Neutrophils # (Manual) (1.3-7.7) k/uL Lymphocytes # (Manual) (1.0-4.8) k/uL PT (9.0-12.0) sec INR (<1.2) APTT (22.0-30.0) sec Sodium (137-145) mmol/L Potassium (3.5-5.1) mmol/L Carbon Dioxide (22-30) mmol/L BUN (9-20) mg/dL Creatinine (0.66-1.25) mg/dL Glucose (74-99) mg/dL POC Glucose (mg/dL) 282 H 258 H (75-99) mg/dL Hemoglobin A1c (4.0-6.0) % Plasma Lactic Acid Alexei 4.3 H* (0.7-2.0) mmol/L Calcium (8.4-10.2) mg/dL Magnesium (1.6-2.3) mg/dL AST (17-59) U/L ALT (21-72) U/L Total Protein (6.3-8.2) g/dL Albumin (3.5-5.0) g/dL 09/22/17 09/22/17 09/22/17 Range/Units 01:12 02:04 03:04 WBC (3.8-10.6) k/uL RBC (4.30-5.90) m/uL Hgb (13.0-17.5) gm/dL Hct (39.0-53.0) % RDW (11.5-15.5) % Plt Count (150-450) k/uL Neutrophils # (Manual) (1.3-7.7) k/uL Lymphocytes # (Manual) (1.0-4.8) k/uL PT (9.0-12.0) sec INR (<1.2) APTT (22.0-30.0) sec Sodium (137-145) mmol/L Potassium (3.5-5.1) mmol/L Carbon Dioxide (22-30) mmol/L BUN (9-20) mg/dL Creatinine (0.66-1.25) mg/dL Glucose (74-99) mg/dL POC Glucose (mg/dL) 234 H 260 H 255 H (75-99) mg/dL Hemoglobin A1c (4.0-6.0) % Plasma Lactic Acid Alexei (0.7-2.0) mmol/L Calcium (8.4-10.2) mg/dL Magnesium (1.6-2.3) mg/dL AST (17-59) U/L ALT (21-72) U/L Total Protein (6.3-8.2) g/dL Albumin (3.5-5.0) g/dL 09/22/17 09/22/17 09/22/17 Range/Units 03:10 04:05 04:28 WBC 15.8 H (3.8-10.6) k/uL RBC 3.74 L (4.30-5.90) m/uL Hgb 11.0 L (13.0-17.5) gm/dL Hct 32.5 L (39.0-53.0) % RDW 16.7 H (11.5-15.5) % Plt Count 67 L (150-450) k/uL Neutrophils # (Manual) 14.80 H (1.3-7.7) k/uL Lymphocytes # (Manual) 0.79 L (1.0-4.8) k/uL PT (9.0-12.0) sec INR (<1.2) APTT (22.0-30.0) sec Sodium (137-145) mmol/L Potassium (3.5-5.1) mmol/L Carbon Dioxide (22-30) mmol/L BUN (9-20) mg/dL Creatinine (0.66-1.25) mg/dL Glucose (74-99) mg/dL POC Glucose (mg/dL) 218 H (75-99) mg/dL Hemoglobin A1c (4.0-6.0) % Plasma Lactic Acid Alexei 3.4 H* (0.7-2.0) mmol/L Calcium (8.4-10.2) mg/dL Magnesium (1.6-2.3) mg/dL AST (17-59) U/L ALT (21-72) U/L Total Protein (6.3-8.2) g/dL Albumin (3.5-5.0) g/dL 09/22/17 09/22/17 09/22/17 Range/Units 04:28 04:28 04:28 WBC (3.8-10.6) k/uL RBC (4.30-5.90) m/uL Hgb (13.0-17.5) gm/dL Hct (39.0-53.0) % RDW (11.5-15.5) % Plt Count (150-450) k/uL Neutrophils # (Manual) (1.3-7.7) k/uL Lymphocytes # (Manual) (1.0-4.8) k/uL PT 16.1 H (9.0-12.0) sec INR 1.8 H (<1.2) APTT (22.0-30.0) sec Sodium (137-145) mmol/L Potassium (3.5-5.1) mmol/L Carbon Dioxide (22-30) mmol/L BUN 38 H (9-20) mg/dL Creatinine 1.62 H (0.66-1.25) mg/dL Glucose 199 H (74-99) mg/dL POC Glucose (mg/dL) (75-99) mg/dL Hemoglobin A1c (4.0-6.0) % Plasma Lactic Acid Alexei 3.3 H* (0.7-2.0) mmol/L Calcium 7.9 L (8.4-10.2) mg/dL Magnesium 2.4 H (1.6-2.3) mg/dL AST 1491 H (17-59) U/L ALT 1513 H (21-72) U/L Total Protein 5.7 L (6.3-8.2) g/dL Albumin 3.2 L (3.5-5.0) g/dL 09/22/17 09/22/17 09/22/17 Range/Units 04:28 05:01 06:13 WBC (3.8-10.6) k/uL RBC (4.30-5.90) m/uL Hgb (13.0-17.5) gm/dL Hct (39.0-53.0) % RDW (11.5-15.5) % Plt Count (150-450) k/uL Neutrophils # (Manual) (1.3-7.7) k/uL Lymphocytes # (Manual) (1.0-4.8) k/uL PT (9.0-12.0) sec INR (<1.2) APTT 53.3 H (22.0-30.0) sec Sodium (137-145) mmol/L Potassium (3.5-5.1) mmol/L Carbon Dioxide (22-30) mmol/L BUN (9-20) mg/dL Creatinine (0.66-1.25) mg/dL Glucose (74-99) mg/dL POC Glucose (mg/dL) 219 H 224 H (75-99) mg/dL Hemoglobin A1c (4.0-6.0) % Plasma Lactic Acid Alexei (0.7-2.0) mmol/L Calcium (8.4-10.2) mg/dL Magnesium (1.6-2.3) mg/dL AST (17-59) U/L ALT (21-72) U/L Total Protein (6.3-8.2) g/dL Albumin (3.5-5.0) g/dL 09/22/17 09/22/17 09/22/17 Range/Units 06:55 08:01 08:52 WBC (3.8-10.6) k/uL RBC (4.30-5.90) m/uL Hgb (13.0-17.5) gm/dL Hct (39.0-53.0) % RDW (11.5-15.5) % Plt Count (150-450) k/uL Neutrophils # (Manual) (1.3-7.7) k/uL Lymphocytes # (Manual) (1.0-4.8) k/uL PT (9.0-12.0) sec INR (<1.2) APTT (22.0-30.0) sec Sodium (137-145) mmol/L Potassium (3.5-5.1) mmol/L Carbon Dioxide (22-30) mmol/L BUN (9-20) mg/dL Creatinine (0.66-1.25) mg/dL Glucose (74-99) mg/dL POC Glucose (mg/dL) 234 H 236 H (75-99) mg/dL Hemoglobin A1c (4.0-6.0) % Plasma Lactic Acid Alexei 2.8 H* (0.7-2.0) mmol/L Calcium (8.4-10.2) mg/dL Magnesium (1.6-2.3) mg/dL AST (17-59) U/L ALT (21-72) U/L Total Protein (6.3-8.2) g/dL Albumin (3.5-5.0) g/dL Microbiology - Last 24 Hours (Table) 09/20/17 23:26 Blood Culture - Preliminary Blood No Growth after 24 hours 09/21/17 00:32 Urine Culture - Preliminary Urine,Catheterized Assessment and Plan Assessment: 1. Acute sepsis and septic shock, most likely secondary to his recent dog bite. Hence we'll continue IV antibiotics, pressors, fluids, infectious disease consultation is pending. 2. Shortness of breath with chest pain and Elevated d-dimer: Continue IV heparin until able to rule out PE and DVT. Clinically strongly doubt PE, but VQ scan is pending in the meantime we'll continue heparin. 3. Acute kidney injury secondary to sepsis and septic shock 5. Acute asthma exacerbation , presently on bronchodilators and IV Solu-Medrol. 6. Acute gastroenteritis, patient is being checked for C. difficile colitis. The possibility of graft versus host disease is in the differential diagnoses, but felt to be less likely clinically. Diarrhea has resolved, elevated liver enzymes are a bit concerning, but we'll continue to monitor for now. Patient remains on Solu-Medrol, but is relatively small dose. 7 multiple comorbidities including diabetes type 2, history of CML, history of coronary artery disease and previous stent placement, and history of peripheral vessel occlusive disease with recent percutaneous superficial femoral artery atherectomy and percutaneous transluminal balloon angioplasty of the left leg in July of 2017. Recommendation: Continue present treatment plan, patient must remain in the ICU , patient is hemodynamically stable, renal profile has significantly improved. I would likely transfer the patient out of the ICU in the next 24 hours. Time with Patient: Less than 30
[2017-09-22 10:20] LABS: Glucose,Whole Blood 215 mg/dL (75-99)
--- NOTE | 2017-09-22 10:39 | P.PN ---
Subjective Progress Note Date: 09/22/17 this is a 52-year-old male, patient of Dr. Sweeney. He has a known past medical history of CML with a bone marrow transplant in 2006 and previous chemo treatment. He has been off of his antirejection medications for about a year. Patient reports that he did not want to take 50 pounds. He also has a known history of asthma, coronary disease with stent, hypertension, diabetes mellitus , hyperlipidemia, obstructive sleep apnea and peripheral vascular disease. Patient reports last about 4 days ago he received a dog bite to the left hand. The dog's family dog and up-to-date on immunizations. He reports that he had some swelling in the hand and redness around the puncture sites. No pus drainage. He reports that it seemed to be healing. Thursday patient started to not feel well. He was feverish with a temp of 102. Having chills and sweats. Also started to have some nausea and diarrhea. Decrease in appetite. He also started to have a cough with some phlegm production. Patient started to become concerned on Thursday still having temps and diarrhea. Came into the emergency room for further evaluation and treatment. Patient also had been reporting lower chest and abdomen discomfort. Patient had a white count 12.6 creatinine elevated at 3.20 and lactic acid elevated at 6.3 up to 8.5. Patient was found to be septic received 3 L of IV fluid boluses for his hypotension. Patient continued to become more short of breath and increased respiratory rate. BiPAP was ordered. Patient did not tolerate the BiPAP. He was transferred to the ICU. He is currently on 4 mics of Levophed. And on but broad-spectrum antibiotics which include Levaquin Vanco and cefuroxime. Critical care, infectious disease,oncology and nephrology has been consulted. Nephrology has ordered dose of IV Lasix with evidence of fluid overload earlier this morning. Patient also had an elevated d-dimer. Unable to do a CAT scan due to elevated creatinine. Patient currently cannot tolerate a VQ scan. Pulmonate service evaluated patient is on IV heparin. VQ scan and venous Dopplers have been ordered. CT of chest abdomen and pelvis is unremarkable. EKG showing a normal sinus rhythm with nonspecific T-wave abnormality 09/22/2017 patient currently in ICU. He was seen by Dr. Hill antibiotics were adjusted to meropenem and vancomycin was continued. Troponins were negative 2 sets. Doppler was negative for DVT. He remains on IV steroids for his asthma exacerbation. Creatinine has come down to 1.62. Chest x-ray showing some pulmonary venous congestion with out overt failure. Patient did have a rise in his liver enzymes AST 1000 491 and ALT 1513. He is complaining of some epigastric tenderness. Denies any alcohol abuse. He is off the Levophed. Case was discussed with pulmonarypractitioner will await their further recommendations. Objective - Vital Signs Vital signs: Vital Signs Temp 98 F 09/22/17 08:00 Pulse 87 09/22/17 09:00 Resp 21 09/22/17 09:00 BP 106/58 09/22/17 09:00 Pulse Ox 97 09/22/17 09:00 Intake & Output 09/21/17 09/22/17 09/22/17 18:59 06:59 18:59 Intake Total 2850.946 1607.609 279.421 Output Total 2595 1850 325 Balance 255.946 -242.391 -45.579 Weight 100.9 kg 102 kg 102 kg Intake: IV 2450 1200 250 Cefepime 2 gm In Sodium 50 50 Chloride 0.9% 50 ml @ 100 mls/hr IVPB Q12HR JADEN Rx #:[id number] Magnesium Sulfate-D5w Pmx 200 1 gm In Dextrose/Water 1 100ml.bag @ 100 mls/hr IVPB Q1H JADEN Rx#: [id number] Sodium Chloride 0.45% 1, 400 1200 200 000 ml @ 100 mls/hr IV . Q11H JADEN with Sodium Bicarb (1 Meq/ml) 100 ml Rx#:[id number] Sodium Chloride 0.9% 1, 800 000 ml @ 100 mls/hr IV . Q10H STA Rx#:[id number] Sodium Chloride 0.9% 1, 1000 000 ml @ 999 mls/hr IV . Q1H1M ONE Rx#:[id number] Intake, IV Titration 400.946 207.609 29.421 Amount Heparin Sod,Pork in 0.45% 233.948 121.296 NaCl 25,000 unit In 0.45 % NaCl 1 500ml.bag @ 18 UNITS/KG/HR 35.92 mls/hr IV .[id number] JADEN Rx#: [id number] Insulin Regular 100 unit 61.123 86.313 29.421 In Sodium Chloride 0.9% 100 ml @ Per Protocol IV .Q0M JADEN Rx#:[id number] Norepinephrin 4 mg-0.9% 105.875 Ns Pmx 4 mg In 250 ml @ Titrate IV .Q0M JADEN Rx#: [id number] Oral 200 Output: Urine 2595 1850 325 Other: Voiding Method Indwelling Catheter Indwelling Catheter # Bowel Movements 1 - Exam Head normocephalic Neck supple Lungs crackles at the bases bilaterally Heart regular rate and rhythm S1-S2, no rub or gallop Abdomen is soft epigastric tenderness nondistended positive bowel sounds no hepatosplenomegaly Extremities trace edema bilateral lower extremities Neuro alert and orientated to 3 - Labs CBC & Chem 7: 09/22/17 04:28 09/22/17 04:28 Labs: Abnormal Lab Results - Last 24 Hours (Table) 09/21/17 09/21/17 09/21/17 Range/Units 11:20 11:52 11:52 WBC (3.8-10.6) k/uL RBC (4.30-5.90) m/uL Hgb (13.0-17.5) gm/dL Hct (39.0-53.0) % RDW (11.5-15.5) % Plt Count (150-450) k/uL Neutrophils # (Manual) (1.3-7.7) k/uL Lymphocytes # (Manual) (1.0-4.8) k/uL PT (9.0-12.0) sec INR (<1.2) APTT 121.9 H* (22.0-30.0) sec Sodium 135 L (137-145) mmol/L Potassium 5.9 H (3.5-5.1) mmol/L Carbon Dioxide 14 L (22-30) mmol/L BUN 34 H (9-20) mg/dL Creatinine 2.70 H (0.66-1.25) mg/dL Glucose 355 H (74-99) mg/dL POC Glucose (mg/dL) 328 H (75-99) mg/dL Hemoglobin A1c (4.0-6.0) % Plasma Lactic Acid Alexei (0.7-2.0) mmol/L Calcium 8.2 L (8.4-10.2) mg/dL Magnesium (1.6-2.3) mg/dL AST (17-59) U/L ALT (21-72) U/L Total Protein (6.3-8.2) g/dL Albumin (3.5-5.0) g/dL 09/21/17 09/21/17 09/21/17 Range/Units 11:52 11:52 13:04 WBC (3.8-10.6) k/uL RBC (4.30-5.90) m/uL Hgb (13.0-17.5) gm/dL Hct (39.0-53.0) % RDW (11.5-15.5) % Plt Count (150-450) k/uL Neutrophils # (Manual) (1.3-7.7) k/uL Lymphocytes # (Manual) (1.0-4.8) k/uL PT (9.0-12.0) sec INR (<1.2) APTT (22.0-30.0) sec Sodium (137-145) mmol/L Potassium (3.5-5.1) mmol/L Carbon Dioxide (22-30) mmol/L BUN (9-20) mg/dL Creatinine (0.66-1.25) mg/dL Glucose (74-99) mg/dL POC Glucose (mg/dL) 334 H (75-99) mg/dL Hemoglobin A1c 8.0 H (4.0-6.0) % Plasma Lactic Acid Alexei 7.9 H* (0.7-2.0) mmol/L Calcium (8.4-10.2) mg/dL Magnesium (1.6-2.3) mg/dL AST (17-59) U/L ALT (21-72) U/L Total Protein (6.3-8.2) g/dL Albumin (3.5-5.0) g/dL 09/21/17 09/21/17 09/21/17 Range/Units 14:02 15:35 16:13 WBC (3.8-10.6) k/uL RBC (4.30-5.90) m/uL Hgb (13.0-17.5) gm/dL Hct (39.0-53.0) % RDW (11.5-15.5) % Plt Count (150-450) k/uL Neutrophils # (Manual) (1.3-7.7) k/uL Lymphocytes # (Manual) (1.0-4.8) k/uL PT (9.0-12.0) sec INR (<1.2) APTT (22.0-30.0) sec Sodium (137-145) mmol/L Potassium (3.5-5.1) mmol/L Carbon Dioxide (22-30) mmol/L BUN (9-20) mg/dL Creatinine (0.66-1.25) mg/dL Glucose (74-99) mg/dL POC Glucose (mg/dL) 300 H 323 H (75-99) mg/dL Hemoglobin A1c (4.0-6.0) % Plasma Lactic Acid Alexei 7.7 H* (0.7-2.0) mmol/L Calcium (8.4-10.2) mg/dL Magnesium (1.6-2.3) mg/dL AST (17-59) U/L ALT (21-72) U/L Total Protein (6.3-8.2) g/dL Albumin (3.5-5.0) g/dL 09/21/17 09/21/17 09/21/17 Range/Units 17:20 18:15 18:29 WBC (3.8-10.6) k/uL RBC (4.30-5.90) m/uL Hgb (13.0-17.5) gm/dL Hct (39.0-53.0) % RDW (11.5-15.5) % Plt Count (150-450) k/uL Neutrophils # (Manual) (1.3-7.7) k/uL Lymphocytes # (Manual) (1.0-4.8) k/uL PT (9.0-12.0) sec INR (<1.2) APTT (22.0-30.0) sec Sodium (137-145) mmol/L Potassium (3.5-5.1) mmol/L Carbon Dioxide 19 L (22-30) mmol/L BUN (9-20) mg/dL Creatinine (0.66-1.25) mg/dL Glucose (74-99) mg/dL POC Glucose (mg/dL) 258 H 261 H (75-99) mg/dL Hemoglobin A1c (4.0-6.0) % Plasma Lactic Acid Alexei (0.7-2.0) mmol/L Calcium (8.4-10.2) mg/dL Magnesium (1.6-2.3) mg/dL AST (17-59) U/L ALT (21-72) U/L Total Protein (6.3-8.2) g/dL Albumin (3.5-5.0) g/dL 09/21/17 09/21/17 09/21/17 Range/Units 18:29 18:58 19:36 WBC (3.8-10.6) k/uL RBC (4.30-5.90) m/uL Hgb (13.0-17.5) gm/dL Hct (39.0-53.0) % RDW (11.5-15.5) % Plt Count (150-450) k/uL Neutrophils # (Manual) (1.3-7.7) k/uL Lymphocytes # (Manual) (1.0-4.8) k/uL PT (9.0-12.0) sec INR (<1.2) APTT 54.8 H (22.0-30.0) sec Sodium (137-145) mmol/L Potassium (3.5-5.1) mmol/L Carbon Dioxide (22-30) mmol/L BUN (9-20) mg/dL Creatinine (0.66-1.25) mg/dL Glucose (74-99) mg/dL POC Glucose (mg/dL) 276 H (75-99) mg/dL Hemoglobin A1c (4.0-6.0) % Plasma Lactic Acid Alexei 5.2 H* (0.7-2.0) mmol/L Calcium (8.4-10.2) mg/dL Magnesium (1.6-2.3) mg/dL AST (17-59) U/L ALT (21-72) U/L Total Protein (6.3-8.2) g/dL Albumin (3.5-5.0) g/dL 09/21/17 09/21/17 09/21/17 Range/Units 19:49 20:51 22:04 WBC (3.8-10.6) k/uL RBC (4.30-5.90) m/uL Hgb (13.0-17.5) gm/dL Hct (39.0-53.0) % RDW (11.5-15.5) % Plt Count (150-450) k/uL Neutrophils # (Manual) (1.3-7.7) k/uL Lymphocytes # (Manual) (1.0-4.8) k/uL PT (9.0-12.0) sec INR (<1.2) APTT (22.0-30.0) sec Sodium (137-145) mmol/L Potassium (3.5-5.1) mmol/L Carbon Dioxide (22-30) mmol/L BUN (9-20) mg/dL Creatinine (0.66-1.25) mg/dL Glucose (74-99) mg/dL POC Glucose (mg/dL) 286 H 265 H 243 H (75-99) mg/dL Hemoglobin A1c (4.0-6.0) % Plasma Lactic Acid Alexei (0.7-2.0) mmol/L Calcium (8.4-10.2) mg/dL Magnesium (1.6-2.3) mg/dL AST (17-59) U/L ALT (21-72) U/L Total Protein (6.3-8.2) g/dL Albumin (3.5-5.0) g/dL 09/21/17 09/21/1718 Range/Units 22:59 23:20 00:06 WBC (3.8-10.6) k/uL RBC (4.30-5.90) m/uL Hgb (13.0-17.5) gm/dL Hct (39.0-53.0) % RDW (11.5-15.5) % Plt Count (150-450) k/uL Neutrophils # (Manual) (1.3-7.7) k/uL Lymphocytes # (Manual) (1.0-4.8) k/uL PT (9.0-12.0) sec INR (<1.2) APTT (22.0-30.0) sec Sodium (137-145) mmol/L Potassium (3.5-5.1) mmol/L Carbon Dioxide (22-30) mmol/L BUN (9-20) mg/dL Creatinine (0.66-1.25) mg/dL Glucose (74-99) mg/dL POC Glucose (mg/dL) 282 H 258 H (75-99) mg/dL Hemoglobin A1c (4.0-6.0) % Plasma Lactic Acid Alexei 4.3 H* (0.7-2.0) mmol/L Calcium (8.4-10.2) mg/dL Magnesium (1.6-2.3) mg/dL AST (17-59) U/L ALT (21-72) U/L Total Protein (6.3-8.2) g/dL Albumin (3.5-5.0) g/dL 09/22/17 09/22/17 09/22/17 Range/Units 01:12 02:04 03:04 WBC (3.8-10.6) k/uL RBC (4.30-5.90) m/uL Hgb (13.0-17.5) gm/dL Hct (39.0-53.0) % RDW (11.5-15.5) % Plt Count (150-450) k/uL Neutrophils # (Manual) (1.3-7.7) k/uL Lymphocytes # (Manual) (1.0-4.8) k/uL PT (9.0-12.0) sec INR (<1.2) APTT (22.0-30.0) sec Sodium (137-145) mmol/L Potassium (3.5-5.1) mmol/L Carbon Dioxide (22-30) mmol/L BUN (9-20) mg/dL Creatinine (0.66-1.25) mg/dL Glucose (74-99) mg/dL POC Glucose (mg/dL) 234 H 260 H 255 H (75-99) mg/dL Hemoglobin A1c (4.0-6.0) % Plasma Lactic Acid Alexei (0.7-2.0) mmol/L Calcium (8.4-10.2) mg/dL Magnesium (1.6-2.3) mg/dL AST (17-59) U/L ALT (21-72) U/L Total Protein (6.3-8.2) g/dL Albumin (3.5-5.0) g/dL 09/22/17 09/22/17 09/22/17 Range/Units 03:10 04:05 04:28 WBC 15.8 H (3.8-10.6) k/uL RBC 3.74 L (4.30-5.90) m/uL Hgb 11.0 L (13.0-17.5) gm/dL Hct 32.5 L (39.0-53.0) % RDW 16.7 H (11.5-15.5) % Plt Count 67 L (150-450) k/uL Neutrophils # (Manual) 14.80 H (1.3-7.7) k/uL Lymphocytes # (Manual) 0.79 L (1.0-4.8) k/uL PT (9.0-12.0) sec INR (<1.2) APTT (22.0-30.0) sec Sodium (137-145) mmol/L Potassium (3.5-5.1) mmol/L Carbon Dioxide (22-30) mmol/L BUN (9-20) mg/dL Creatinine (0.66-1.25) mg/dL Glucose (74-99) mg/dL POC Glucose (mg/dL) 218 H (75-99) mg/dL Hemoglobin A1c (4.0-6.0) % Plasma Lactic Acid Alexei 3.4 H* (0.7-2.0) mmol/L Calcium (8.4-10.2) mg/dL Magnesium (1.6-2.3) mg/dL AST (17-59) U/L ALT (21-72) U/L Total Protein (6.3-8.2) g/dL Albumin (3.5-5.0) g/dL 09/22/17 09/22/17 09/22/17 Range/Units 04:28 04:28 04:28 WBC (3.8-10.6) k/uL RBC (4.30-5.90) m/uL Hgb (13.0-17.5) gm/dL Hct (39.0-53.0) % RDW (11.5-15.5) % Plt Count (150-450) k/uL Neutrophils # (Manual) (1.3-7.7) k/uL Lymphocytes # (Manual) (1.0-4.8) k/uL PT 16.1 H (9.0-12.0) sec INR 1.8 H (<1.2) APTT (22.0-30.0) sec Sodium (137-145) mmol/L Potassium (3.5-5.1) mmol/L Carbon Dioxide (22-30) mmol/L BUN 38 H (9-20) mg/dL Creatinine 1.62 H (0.66-1.25) mg/dL Glucose 199 H (74-99) mg/dL POC Glucose (mg/dL) (75-99) mg/dL Hemoglobin A1c (4.0-6.0) % Plasma Lactic Acid Alexei 3.3 H* (0.7-2.0) mmol/L Calcium 7.9 L (8.4-10.2) mg/dL Magnesium 2.4 H (1.6-2.3) mg/dL AST 1491 H (17-59) U/L ALT 1513 H (21-72) U/L Total Protein 5.7 L (6.3-8.2) g/dL Albumin 3.2 L (3.5-5.0) g/dL 09/22/17 09/22/17 09/22/17 Range/Units 04:28 05:01 06:13 WBC (3.8-10.6) k/uL RBC (4.30-5.90) m/uL Hgb (13.0-17.5) gm/dL Hct (39.0-53.0) % RDW (11.5-15.5) % Plt Count (150-450) k/uL Neutrophils # (Manual) (1.3-7.7) k/uL Lymphocytes # (Manual) (1.0-4.8) k/uL PT (9.0-12.0) sec INR (<1.2) APTT 53.3 H (22.0-30.0) sec Sodium (137-145) mmol/L Potassium (3.5-5.1) mmol/L Carbon Dioxide (22-30) mmol/L BUN (9-20) mg/dL Creatinine (0.66-1.25) mg/dL Glucose (74-99) mg/dL POC Glucose (mg/dL) 219 H 224 H (75-99) mg/dL Hemoglobin A1c (4.0-6.0) % Plasma Lactic Acid Alexei (0.7-2.0) mmol/L Calcium (8.4-10.2) mg/dL Magnesium (1.6-2.3) mg/dL AST (17-59) U/L ALT (21-72) U/L Total Protein (6.3-8.2) g/dL Albumin (3.5-5.0) g/dL 09/22/17 09/22/17 09/22/17 Range/Units 06:55 08:01 08:52 WBC (3.8-10.6) k/uL RBC (4.30-5.90) m/uL Hgb (13.0-17.5) gm/dL Hct (39.0-53.0) % RDW (11.5-15.5) % Plt Count (150-450) k/uL Neutrophils # (Manual) (1.3-7.7) k/uL Lymphocytes # (Manual) (1.0-4.8) k/uL PT (9.0-12.0) sec INR (<1.2) APTT (22.0-30.0) sec Sodium (137-145) mmol/L Potassium (3.5-5.1) mmol/L Carbon Dioxide (22-30) mmol/L BUN (9-20) mg/dL Creatinine (0.66-1.25) mg/dL Glucose (74-99) mg/dL POC Glucose (mg/dL) 234 H 236 H (75-99) mg/dL Hemoglobin A1c (4.0-6.0) % Plasma Lactic Acid Alexei 2.8 H* (0.7-2.0) mmol/L Calcium (8.4-10.2) mg/dL Magnesium (1.6-2.3) mg/dL AST (17-59) U/L ALT (21-72) U/L Total Protein (6.3-8.2) g/dL Albumin (3.5-5.0) g/dL 09/22/17 Range/Units 10:18 WBC (3.8-10.6) k/uL RBC (4.30-5.90) m/uL Hgb (13.0-17.5) gm/dL Hct (39.0-53.0) % RDW (11.5-15.5) % Plt Count (150-450) k/uL Neutrophils # (Manual) (1.3-7.7) k/uL Lymphocytes # (Manual) (1.0-4.8) k/uL PT (9.0-12.0) sec INR (<1.2) APTT (22.0-30.0) sec Sodium (137-145) mmol/L Potassium (3.5-5.1) mmol/L Carbon Dioxide (22-30) mmol/L BUN (9-20) mg/dL Creatinine (0.66-1.25) mg/dL Glucose (74-99) mg/dL POC Glucose (mg/dL) 215 H (75-99) mg/dL Hemoglobin A1c (4.0-6.0) % Plasma Lactic Acid Alexei (0.7-2.0) mmol/L Calcium (8.4-10.2) mg/dL Magnesium (1.6-2.3) mg/dL AST (17-59) U/L ALT (21-72) U/L Total Protein (6.3-8.2) g/dL Albumin (3.5-5.0) g/dL Microbiology - Last 24 Hours (Table) 09/20/17 23:26 Blood Culture - Preliminary Blood No Growth after 24 hours 09/21/17 00:32 Urine Culture - Preliminary Urine,Catheterized Assessment and Plan Assessment: 1. Acute sepsis present on admission possibly secondary to dog bite to the left hand. Infectious disease has been consulted. Blood culture negative so far. Antibiotics adjusted per infectious disease patient currently on meropenem and vancomycin 2. Shortness of breath with chest pain and Elevated d-dimer: Continue IV heparin until able to rule out PE and DVT. VQ scan and venous Dopplers ordered. Unable to perform a CTA of the chest because of elevated creatinine. Patient unable to tolerate VQ scan at this time. Troponins negative 2 venous Doppler negative for DVT 3. Acute kidney injury: Likely related to hypoperfusion due to patient's hypotension. As well as diarrhea. Creatinine 3.20 on admission. He has received IV fluids. Nephrology following closely. Creatinine has come down to 1.62 4. Hypotension patient receiving IV fluids. Patient is now off of Levophed 5. Acute asthma exacerbation patient was started on IV Solu-Medrol and bronchodilators. Pulmonary service following 6. Diarrhea . Patient had formed stool unable to complete stool study for C. diff 7. Diabetes mellitus type 2 : Patient currently on insulin drip while on IV steroids 8. History of CML status post chemotherapy and a bone marrow transplant in 2006. Oncology consulted 9. History of uycxi-[id number]-suav disease after bone marrow transplant. Patient has not been taking antirejection medication for over a year. Patient stopped taking them on his own 10. Mood disorder continue Lamictal 11. History of coronary artery disease with previous cardiac stent 12. Hyperkalemia: Resolved 13. Hypomagnesemia and patient receiving magnesium supplement 14. History of peripheral vascular disease with percutaneous superficial femoral artery arthrectomy and percutaneous transluminal balloon angioplasty of the left leg in July 2017 15. Metabolic acidosis secondary to lactic acidosis and renal failure. Neurology is placed patient on bicarb 16. Acute hypoxic respiratory initially requiring BiPAP. Currently on nasal cannula 17. Elevated LFTs: ALT 1513 AST 1491. Discontinue Lipitor and fenofibrate. Also could be shocked liver from hypotension Or possibly liver congestion. Chest x-ray is showing some pulmonary venous congestion. Discussed with pulmonary nurse practitioner. They reevaluate patient. Also some mild epigastric tenderness we'll check amylase and lipase DVT prophylaxis IV heparin and GI prophylaxis Protonix I performed an examination of the patient and discussed their management with the physician Help Desk Engineer. I have reviewed the Physician Help Desk Engineer's notes and agree with the documented findings and plan of care
[2017-09-22] MEDS: SODIUM CHLORIDE 0.9% 1,000 ML IV SCH (11:45)
[2017-09-22 11:57] LABS: Glucose,Whole Blood 203 mg/dL (75-99)
[2017-09-22 13:08] LABS: Glucose,Whole Blood 204 mg/dL (75-99)
[2017-09-22 13:55] LABS: Immunoglobulin M 20.4 mg/dL (40.0-280.0)
[2017-09-22] MEDS: LIXISENATIDE SQ SCH (14:14)
[2017-09-22] MEDS: [UNRECOGNIZED DRUG - OTHER] SQ SCH (14:14)
[2017-09-22] MEDS: INSULIN GLARGINE SQ SCH (14:14)
[2017-09-22 14:23] LABS: Glucose,Whole Blood 268 mg/dL (75-99)
[2017-09-22] MEDS: INSULIN REGULAR 100 UNIT in SODIUM CHLORIDE 0.9% 100 ML IV SCH ×2 (14:25→22:05)
[2017-09-22 16:50] LABS: Glucose,Whole Blood 146 mg/dL (75-99)
[2017-09-22] MEDS: SALT AND SODA MOUTHWASH 1,000 ML PO SCH ×2 (16:52→20:26)
--- NOTE | 2017-09-22 17:01 | P.PN ---
Subjective Progress Note Date: 09/22/17 Principal diagnosis: sepsis Patient seen todayin follow-up in the ICU, he states feeling better, he is still short of breath even at rest, denies nausea, vomiting, mild oral dryness, cough is congested, no hemoptysis abdominal bloating, diarrhea, constipation, bleeding or pain. Objective - Vital Signs Vital signs: Vital Signs Temp 98.1 F 09/22/17 11:30 Pulse 88 09/22/17 16:38 Resp 24 09/22/17 15:00 BP 102/61 09/22/17 15:00 Pulse Ox 96 09/22/17 15:00 Intake & Output 09/21/17 09/22/17 09/22/17 18:59 06:59 18:59 Intake Total 2850.946 1607.609 770.963 Output Total 2595 1850 885 Balance 255.946 -242.391 -114.037 Weight 100.9 kg 102 kg 102 kg Intake: IV 2450 1200 730 Cefepime 2 gm In Sodium 50 50 Chloride 0.9% 50 ml @ 100 mls/hr IVPB Q12HR JDAEN Rx #:[id number] Magnesium Sulfate-D5w Pmx 200 1 gm In Dextrose/Water 1 100ml.bag @ 100 mls/hr IVPB Q1H JADEN Rx#: [id number] Sodium Chloride 0.45% 1, 400 1200 400 000 ml @ 100 mls/hr IV . Q11H JADEN with Sodium Bicarb (1 Meq/ml) 100 ml Rx#:[id number] Sodium Chloride 0.9% 1, 800 000 ml @ 100 mls/hr IV . Q10H STA Rx#:[id number] Sodium Chloride 0.9% 1, 280 000 ml @ 70 mls/hr IV . [id number] JADEN Rx#:[id number] Sodium Chloride 0.9% 1, 1000 000 ml @ 999 mls/hr IV . Q1H1M ONE Rx#:[id number] Intake, IV Titration 400.946 207.609 40.963 Amount Heparin Sod,Pork in 0.45% 233.948 121.296 NaCl 25,000 unit In 0.45 % NaCl 1 500ml.bag @ 18 UNITS/KG/HR 35.92 mls/hr IV .[id number] JADEN Rx#: [id number] Insulin Regular 100 unit 61.123 86.313 40.963 In Sodium Chloride 0.9% 100 ml @ Per Protocol IV .Q0M JADEN Rx#:[id number] Norepinephrin 4 mg-0.9% 105.875 Ns Pmx 4 mg In 250 ml @ Titrate IV .Q0M JADEN Rx#: [id number] Oral 200 Output: Urine 2595 1850 885 Other: Voiding Method Indwelling Catheter Indwelling Catheter Indwelling Catheter # Bowel Movements 1 - Constitutional General appearance: Present: average body habitus, cooperative, no acute distress - EENT EENT Comment(s): dry mucous membranes Eyes: Present: anicteric sclerae - Respiratory Respiratory: bilateral: CTA (periphery), other (congested cough, audible crackles) - Cardiovascular Rhythm: regular Heart sounds: normal: S1, S2 - Peripheral edema leg Peripheral Edema: bilateral: Trace - Gastrointestinal General gastrointestinal: Present: normal bowel sounds, soft. Absent: absent bowel sounds, decreased bowel sounds, distended, hepatomegaly, hyperactive bowel sounds, organomegaly, rigid, scaphoid, splenomegaly, tenderness, umbilical hernia, ventral hernia - Neurologic Neurologic: Present: CNII-XII intact - Musculoskeletal Musculoskeletal: Present: strength equal bilaterally - Psychiatric Psychiatric: Present: A&O x's 3, appropriate affect, intact judgment & insight - Labs CBC & Chem 7: 09/22/17 04:28 09/22/17 10:50 Labs: Abnormal Lab Results - Last 24 Hours (Table) 09/21/17 09/21/17 09/21/17 Range/Units 11:52 11:52 17:20 WBC (3.8-10.6) k/uL RBC (4.30-5.90) m/uL Hgb (13.0-17.5) gm/dL Hct (39.0-53.0) % RDW (11.5-15.5) % Plt Count (150-450) k/uL Neutrophils # (Manual) (1.3-7.7) k/uL Lymphocytes # (Manual) (1.0-4.8) k/uL PT (9.0-12.0) sec INR (<1.2) APTT (22.0-30.0) sec Carbon Dioxide (22-30) mmol/L BUN (9-20) mg/dL Creatinine (0.66-1.25) mg/dL Glucose (74-99) mg/dL POC Glucose (mg/dL) 258 H (75-99) mg/dL Hemoglobin A1c 8.0 H (4.0-6.0) % Plasma Lactic Acid Alexei (0.7-2.0) mmol/L Calcium (8.4-10.2) mg/dL Magnesium (1.6-2.3) mg/dL AST (17-59) U/L ALT (21-72) U/L Total Protein (6.3-8.2) g/dL Albumin (3.5-5.0) g/dL IgG 547.0 L (700.0-1600.0) mg/dL IgM 20.4 L (40.0-280.0) mg/dL 09/21/17 09/21/17 09/21/17 Range/Units 18:15 18:29 18:29 WBC (3.8-10.6) k/uL RBC (4.30-5.90) m/uL Hgb (13.0-17.5) gm/dL Hct (39.0-53.0) % RDW (11.5-15.5) % Plt Count (150-450) k/uL Neutrophils # (Manual) (1.3-7.7) k/uL Lymphocytes # (Manual) (1.0-4.8) k/uL PT (9.0-12.0) sec INR (<1.2) APTT 54.8 H (22.0-30.0) sec Carbon Dioxide 19 L (22-30) mmol/L BUN (9-20) mg/dL Creatinine (0.66-1.25) mg/dL Glucose (74-99) mg/dL POC Glucose (mg/dL) 261 H (75-99) mg/dL Hemoglobin A1c (4.0-6.0) % Plasma Lactic Acid Alexei (0.7-2.0) mmol/L Calcium (8.4-10.2) mg/dL Magnesium (1.6-2.3) mg/dL AST (17-59) U/L ALT (21-72) U/L Total Protein (6.3-8.2) g/dL Albumin (3.5-5.0) g/dL IgG (700.0-1600.0) mg/dL IgM (40.0-280.0) mg/dL 09/21/17 09/21/17 09/21/17 Range/Units 18:58 19:36 19:49 WBC (3.8-10.6) k/uL RBC (4.30-5.90) m/uL Hgb (13.0-17.5) gm/dL Hct (39.0-53.0) % RDW (11.5-15.5) % Plt Count (150-450) k/uL Neutrophils # (Manual) (1.3-7.7) k/uL Lymphocytes # (Manual) (1.0-4.8) k/uL PT (9.0-12.0) sec INR (<1.2) APTT (22.0-30.0) sec Carbon Dioxide (22-30) mmol/L BUN (9-20) mg/dL Creatinine (0.66-1.25) mg/dL Glucose (74-99) mg/dL POC Glucose (mg/dL) 276 H 286 H (75-99) mg/dL Hemoglobin A1c (4.0-6.0) % Plasma Lactic Acid Alexei 5.2 H* (0.7-2.0) mmol/L Calcium (8.4-10.2) mg/dL Magnesium (1.6-2.3) mg/dL AST (17-59) U/L ALT (21-72) U/L Total Protein (6.3-8.2) g/dL Albumin (3.5-5.0) g/dL IgG (700.0-1600.0) mg/dL IgM (40.0-280.0) mg/dL 09/21/17 09/21/17 09/21/17 Range/Units 20:51 22:04 22:59 WBC (3.8-10.6) k/uL RBC (4.30-5.90) m/uL Hgb (13.0-17.5) gm/dL Hct (39.0-53.0) % RDW (11.5-15.5) % Plt Count (150-450) k/uL Neutrophils # (Manual) (1.3-7.7) k/uL Lymphocytes # (Manual) (1.0-4.8) k/uL PT (9.0-12.0) sec INR (<1.2) APTT (22.0-30.0) sec Carbon Dioxide (22-30) mmol/L BUN (9-20) mg/dL Creatinine (0.66-1.25) mg/dL Glucose (74-99) mg/dL POC Glucose (mg/dL) 265 H 243 H 282 H (75-99) mg/dL Hemoglobin A1c (4.0-6.0) % Plasma Lactic Acid Alexei (0.7-2.0) mmol/L Calcium (8.4-10.2) mg/dL Magnesium (1.6-2.3) mg/dL AST (17-59) U/L ALT (21-72) U/L Total Protein (6.3-8.2) g/dL Albumin (3.5-5.0) g/dL IgG (700.0-1600.0) mg/dL IgM (40.0-280.0) mg/dL 09/21/17 09/22/17 09/22/17 Range/Units 23:20 00:06 01:12 WBC (3.8-10.6) k/uL RBC (4.30-5.90) m/uL Hgb (13.0-17.5) gm/dL Hct (39.0-53.0) % RDW (11.5-15.5) % Plt Count (150-450) k/uL Neutrophils # (Manual) (1.3-7.7) k/uL Lymphocytes # (Manual) (1.0-4.8) k/uL PT (9.0-12.0) sec INR (<1.2) APTT (22.0-30.0) sec Carbon Dioxide (22-30) mmol/L BUN (9-20) mg/dL Creatinine (0.66-1.25) mg/dL Glucose (74-99) mg/dL POC Glucose (mg/dL) 258 H 234 H (75-99) mg/dL Hemoglobin A1c (4.0-6.0) % Plasma Lactic Acid Alexei 4.3 H* (0.7-2.0) mmol/L Calcium (8.4-10.2) mg/dL Magnesium (1.6-2.3) mg/dL AST (17-59) U/L ALT (21-72) U/L Total Protein (6.3-8.2) g/dL Albumin (3.5-5.0) g/dL IgG (700.0-1600.0) mg/dL IgM (40.0-280.0) mg/dL 09/22/17 09/22/17 09/22/17 Range/Units 02:04 03:04 03:10 WBC (3.8-10.6) k/uL RBC (4.30-5.90) m/uL Hgb (13.0-17.5) gm/dL Hct (39.0-53.0) % RDW (11.5-15.5) % Plt Count (150-450) k/uL Neutrophils # (Manual) (1.3-7.7) k/uL Lymphocytes # (Manual) (1.0-4.8) k/uL PT (9.0-12.0) sec INR (<1.2) APTT (22.0-30.0) sec Carbon Dioxide (22-30) mmol/L BUN (9-20) mg/dL Creatinine (0.66-1.25) mg/dL Glucose (74-99) mg/dL POC Glucose (mg/dL) 260 H 255 H (75-99) mg/dL Hemoglobin A1c (4.0-6.0) % Plasma Lactic Acid Alexei 3.4 H* (0.7-2.0) mmol/L Calcium (8.4-10.2) mg/dL Magnesium (1.6-2.3) mg/dL AST (17-59) U/L ALT (21-72) U/L Total Protein (6.3-8.2) g/dL Albumin (3.5-5.0) g/dL IgG (700.0-1600.0) mg/dL IgM (40.0-280.0) mg/dL 09/22/17 09/22/17 09/22/17 Range/Units 04:05 04:28 04:28 WBC 15.8 H (3.8-10.6) k/uL RBC 3.74 L (4.30-5.90) m/uL Hgb 11.0 L (13.0-17.5) gm/dL Hct 32.5 L (39.0-53.0) % RDW 16.7 H (11.5-15.5) % Plt Count 67 L (150-450) k/uL Neutrophils # (Manual) 14.80 H (1.3-7.7) k/uL Lymphocytes # (Manual) 0.79 L (1.0-4.8) k/uL PT 16.1 H (9.0-12.0) sec INR 1.8 H (<1.2) APTT (22.0-30.0) sec Carbon Dioxide (22-30) mmol/L BUN (9-20) mg/dL Creatinine (0.66-1.25) mg/dL Glucose (74-99) mg/dL POC Glucose (mg/dL) 218 H (75-99) mg/dL Hemoglobin A1c (4.0-6.0) % Plasma Lactic Acid Alexei (0.7-2.0) mmol/L Calcium (8.4-10.2) mg/dL Magnesium (1.6-2.3) mg/dL AST (17-59) U/L ALT (21-72) U/L Total Protein (6.3-8.2) g/dL Albumin (3.5-5.0) g/dL IgG (700.0-1600.0) mg/dL IgM (40.0-280.0) mg/dL 09/22/17 09/22/17 09/22/17 Range/Units 04:28 04:28 04:28 WBC (3.8-10.6) k/uL RBC (4.30-5.90) m/uL Hgb (13.0-17.5) gm/dL Hct (39.0-53.0) % RDW (11.5-15.5) % Plt Count (150-450) k/uL Neutrophils # (Manual) (1.3-7.7) k/uL Lymphocytes # (Manual) (1.0-4.8) k/uL PT (9.0-12.0) sec INR (<1.2) APTT 53.3 H (22.0-30.0) sec Carbon Dioxide (22-30) mmol/L BUN 38 H (9-20) mg/dL Creatinine 1.62 H (0.66-1.25) mg/dL Glucose 199 H (74-99) mg/dL POC Glucose (mg/dL) (75-99) mg/dL Hemoglobin A1c (4.0-6.0) % Plasma Lactic Acid Alexei 3.3 H* (0.7-2.0) mmol/L Calcium 7.9 L (8.4-10.2) mg/dL Magnesium 2.4 H (1.6-2.3) mg/dL AST 1491 H (17-59) U/L ALT 1513 H (21-72) U/L Total Protein 5.7 L (6.3-8.2) g/dL Albumin 3.2 L (3.5-5.0) g/dL IgG (700.0-1600.0) mg/dL IgM (40.0-280.0) mg/dL 09/22/17 09/22/17 09/22/17 Range/Units 05:01 06:13 06:55 WBC (3.8-10.6) k/uL RBC (4.30-5.90) m/uL Hgb (13.0-17.5) gm/dL Hct (39.0-53.0) % RDW (11.5-15.5) % Plt Count (150-450) k/uL Neutrophils # (Manual) (1.3-7.7) k/uL Lymphocytes # (Manual) (1.0-4.8) k/uL PT (9.0-12.0) sec INR (<1.2) APTT (22.0-30.0) sec Carbon Dioxide (22-30) mmol/L BUN (9-20) mg/dL Creatinine (0.66-1.25) mg/dL Glucose (74-99) mg/dL POC Glucose (mg/dL) 219 H 224 H 234 H (75-99) mg/dL Hemoglobin A1c (4.0-6.0) % Plasma Lactic Acid Alexei (0.7-2.0) mmol/L Calcium (8.4-10.2) mg/dL Magnesium (1.6-2.3) mg/dL AST (17-59) U/L ALT (21-72) U/L Total Protein (6.3-8.2) g/dL Albumin (3.5-5.0) g/dL IgG (700.0-1600.0) mg/dL IgM (40.0-280.0) mg/dL 09/22/17 09/22/17 09/22/17 Range/Units 08:01 08:52 10:18 WBC (3.8-10.6) k/uL RBC (4.30-5.90) m/uL Hgb (13.0-17.5) gm/dL Hct (39.0-53.0) % RDW (11.5-15.5) % Plt Count (150-450) k/uL Neutrophils # (Manual) (1.3-7.7) k/uL Lymphocytes # (Manual) (1.0-4.8) k/uL PT (9.0-12.0) sec INR (<1.2) APTT (22.0-30.0) sec Carbon Dioxide (22-30) mmol/L BUN (9-20) mg/dL Creatinine (0.66-1.25) mg/dL Glucose (74-99) mg/dL POC Glucose (mg/dL) 236 H 215 H (75-99) mg/dL Hemoglobin A1c (4.0-6.0) % Plasma Lactic Acid Alexei 2.8 H* (0.7-2.0) mmol/L Calcium (8.4-10.2) mg/dL Magnesium (1.6-2.3) mg/dL AST (17-59) U/L ALT (21-72) U/L Total Protein (6.3-8.2) g/dL Albumin (3.5-5.0) g/dL IgG (700.0-1600.0) mg/dL IgM (40.0-280.0) mg/dL 09/22/17 09/22/17 09/22/17 Range/Units 11:54 13:07 14:21 WBC (3.8-10.6) k/uL RBC (4.30-5.90) m/uL Hgb (13.0-17.5) gm/dL Hct (39.0-53.0) % RDW (11.5-15.5) % Plt Count (150-450) k/uL Neutrophils # (Manual) (1.3-7.7) k/uL Lymphocytes # (Manual) (1.0-4.8) k/uL PT (9.0-12.0) sec INR (<1.2) APTT (22.0-30.0) sec Carbon Dioxide (22-30) mmol/L BUN (9-20) mg/dL Creatinine (0.66-1.25) mg/dL Glucose (74-99) mg/dL POC Glucose (mg/dL) 203 H 204 H 268 H (75-99) mg/dL Hemoglobin A1c (4.0-6.0) % Plasma Lactic Acid Alexei (0.7-2.0) mmol/L Calcium (8.4-10.2) mg/dL Magnesium (1.6-2.3) mg/dL AST (17-59) U/L ALT (21-72) U/L Total Protein (6.3-8.2) g/dL Albumin (3.5-5.0) g/dL IgG (700.0-1600.0) mg/dL IgM (40.0-280.0) mg/dL 09/22/17 Range/Units 16:48 WBC (3.8-10.6) k/uL RBC (4.30-5.90) m/uL Hgb (13.0-17.5) gm/dL Hct (39.0-53.0) % RDW (11.5-15.5) % Plt Count (150-450) k/uL Neutrophils # (Manual) (1.3-7.7) k/uL Lymphocytes # (Manual) (1.0-4.8) k/uL PT (9.0-12.0) sec INR (<1.2) APTT (22.0-30.0) sec Carbon Dioxide (22-30) mmol/L BUN (9-20) mg/dL Creatinine (0.66-1.25) mg/dL Glucose (74-99) mg/dL POC Glucose (mg/dL) 146 H (75-99) mg/dL Hemoglobin A1c (4.0-6.0) % Plasma Lactic Acid Alexei (0.7-2.0) mmol/L Calcium (8.4-10.2) mg/dL Magnesium (1.6-2.3) mg/dL AST (17-59) U/L ALT (21-72) U/L Total Protein (6.3-8.2) g/dL Albumin (3.5-5.0) g/dL IgG (700.0-1600.0) mg/dL IgM (40.0-280.0) mg/dL Microbiology - Last 24 Hours (Table) 09/21/17 00:32 Urine Culture - Preliminary Urine,Catheterized 09/20/17 23:26 Blood Culture - Preliminary Blood No Growth after 24 hours - Imaging and Cardiology Chest x-ray: report reviewed Assessment and Plan (1) 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 Not recommending resumption of immunosuppressive therapy at this time due to sepsis, did encourage patient to resume treatment after current situation is resolved, he verbalized understanding Current Visit: Yes Status: Chronic Priority: High Code(s): T86.09 - OTHER COMPLICATIONS OF BONE MARROW TRANSPLANT SNOMED Code(s): 978356130 (2) Status post bone marrow transplant Current Visit: No Status: Chronic Code(s): Z94.81 - BONE MARROW TRANSPLANT STATUS SNOMED Code(s): 708985769 (3) CML (chronic myeloid leukemia) Current Visit: No Status: Chronic Priority: Low Code(s): C92.10 - CHRONIC MYELOID LEUK, BCR/ABL-POSITIVE, NOT ACHIEVE REMIS SNOMED Code(s): 22089429 Plan: Patient does seem to be doing a little bit better today. Cont intensive care at this time Immunoglobulin levels ordered, pending, supplement with IVIG if appropriate. Doctor attests:I have performed a history and physical exam of this pt, discussed with dictator. I agree with dictated note, documented as a scribe.
--- NOTE | 2017-09-22 18:10 | PN ---
PROGRESS NOTE The patient is seen for followup for acute kidney injury, metabolic acidosis and hyperkalemia. The patient states he is feeling slightly better; however, he remains mildly short of breath. He has had excellent urine output with 100-150 mL/h. The patient is also maintained on IV fluids in the form of IV bicarb. He is trying to eat. EXAMINATION: This morning, blood pressure was 98/67. Patient is afebrile, heart rate about 70-80 per minute. HEART: S1, S2. LUNGS: Bilateral breath sounds are heard. Abdomen is soft, nontender. Lower extremities show no significant edema. AUTOMATION TECHNICIAN is grossly intact. The patient is moving all 4 extremities. LABS: Show sodium 142, potassium 3.6, chloride 105, BUN 38, serum creatinine 1.6. Hemoglobin 11.0 g/dL. Lactic acid was 2.8. ASSESSMENT: 1. Acute kidney injury, acute tubular necrosis secondary to hypotension, hypoperfusion, currently nonoliguric with improving renal function. 2. Metabolic acidosis secondary to lactic acidosis, renal failure and sepsis, maintained on IV bicarbonate and currently improved. 3. Hyperkalemia associated with renal failure and acidosis and use of nonsteroidal anti-inflammatory drugs, now improved. 4. Respiratory failure, currently off of BiPAP. The patient's D-dimer was positive. The patient was on IV heparin, which is now Lovenox. 5. History of chronic myeloid leukemia, status post bone marrow transplant. 6. Dog bite in the left hand, currently on empiric antibiotics. 7. Elevated liver enzymes with significant increase in the AST from 458-1491. Possibly related to hypoperfusion, although his Levophed was not more than 4 mcg. PLAN: Change IV fluids to normal saline. Discontinue IV bicarb. Repeat labs in a.m. Continue to avoid nephrotoxic agents. Switch to saline. Monitor vancomycin level closely, given the renal failure. MMODL / IJN: [id number] /
[2017-09-22 18:17] LABS: Glucose,Whole Blood 198 mg/dL (75-99)
[2017-09-22 19:00] LABS: Glucose,Whole Blood 185 mg/dL (75-99)
[2017-09-22 19:49] LABS: Glucose,Whole Blood 200 mg/dL (75-99)
[2017-09-22] MEDS: lamoTRIgine 25 MG TAB PO SCH (20:26)
[2017-09-22 21:23] LABS: Glucose,Whole Blood 199 mg/dL (75-99)
[2017-09-22 22:02] LABS: Glucose,Whole Blood 204 mg/dL (75-99)
[2017-09-22 23:07] LABS: Glucose,Whole Blood 177 mg/dL (75-99)
--- NOTE | 2017-09-22 23:31 | P.PN ---
Subjective Progress Note Date: 09/22/17 52-year-old male with a known history of chronic myelogenous leukemia diagnosed in 2003. The patient was treated with chemotherapy by 2005 requiring allogenic stem cell transplantation. Since that time he said difficulties with [id number] disease affecting his eyes and skin skin which has affected his quality of life. He has had plasmapheresis and ongoing follow-up with the [facility] in [place]. Apparently the patient stopped taking his suppressive medications nearly a year ago he was started taking 44 pills a day. Relates being off medications he actually felt a little better and has maintained himself off of medications, his is concerned with the patient is very self-directed. Apparently a few days ago the patient was admitted by a Josef, it is a show dog is up-to-date on all of his vaccines. He suffered a bite to his left hand. Local care was provided but despite that he's been having some increasing difficulties that included increasing fever with chills associated with nausea emesis increasing shortness of breath and feeling quite poorly overall. Consequently the patient did present to the emergency center and was admitted to the intensive care unit with evidence of sepsis and shock requiring vasopressor therapy and fluid resuscitation. With fluid resuscitation could become a bit more short of breath and did have a good fluid response to Lasix. With the rehydration he has had some electrolyte imbalance has had some muscle spasms is comfortable at the moment as far as the musculoskeletal difficulties. He does feel quite poorly overall is improved since admission possibly due to the high dose of methylprednisolone that has been started. August patient is feeling better , hypotension is resolved, respirations are improved, pain and discomfort is improved with muscle spasms. Still short of breath but improved, no hemoptysis. Pain to the left hand is improved still some swelling. Objective - Vital Signs Vital signs: Vital Signs Temp 97.7 F 09/22/17 20:00 Pulse 83 09/22/17 22:00 Resp 20 09/22/17 22:00 BP 110/60 09/22/17 22:00 Pulse Ox 97 09/22/17 22:00 Intake & Output 09/22/17 09/22/17 09/23/17 06:59 18:59 06:59 Intake Total 0325.387 0737.562 419.792 Output Total 1850 1155 555 Balance -242.391 -138.438 -135.208 Weight 102 kg 102 kg Intake: IV 1200 940 380 Cefepime 2 gm In Sodium 50 Chloride 0.9% 50 ml @ 100 mls/hr IVPB Q12HR [facility] Rx #:[id number] Meropenem 1 gm In Sodium 100 Chloride 0.9% 100 ml @ 100 mls/hr IVPB Q12H [facility] Rx#:[id number] Sodium Chloride 0.45% 1, 1200 400 000 ml @ 100 mls/hr IV . Q11H [facility] with Sodium Bicarb (1 Meq/ml) 100 ml Rx#:[id number] Sodium Chloride 0.9% 1, 490 280 000 ml @ 70 mls/hr IV . [id number] [facility] Rx#:[id number] Intake, IV Titration 207.609 76.562 39.792 Amount Heparin Sod,Pork in 0.45% 121.296 NaCl 25,000 unit In 0.45 % NaCl 1 500ml.bag @ 18 UNITS/KG/HR 35.92 mls/hr IV .[id number] [facility] Rx#: [id number] Insulin Regular 100 unit 86.313 76.562 39.792 In Sodium Chloride 0.9% 100 ml @ Per Protocol IV .Q0M [facility] Rx#:[id number] Oral 200 Output: Urine 1850 1155 555 Other: Voiding Method Indwelling Catheter Indwelling Catheter - Exam 52-year-old male seems to be somewhat uncomfortable HEENT: Anicteric conjunctiva irritated and dry nasal mucosa grossly intact without significant lesions, there is no thrush. Poor dentition. Place Neck: The neck is supple without significant lymphadenopathy or thyromegaly. Lungs: Symmetrical air entry is noted expiratory wheezes are scattered no amy bronchial sounds no dullness or egophony Heart: Regular rate and rhythm with an audible S1-S2, no S3 no S4. There is no significant murmur click or rub, PMI was nondisplaced. Abdomen: Positive bowel sounds soft minimal tenderness without palpable masses or organomegaly. There was no guarding or rebound. Extremities: The right upper extremity is intact without difficulty. The upper extremity as the dog bite left hand. There is some bruising around the lateral surface of the hand but he has on heparin the INR has been elevated the scratch the base of the thumb is without bleeding. There is not a significant amount of ascending erythema and there is no lymphadenopathy epitrochlear or axillary this time. No other enlarged lymph nodes are noted is have chronic dryness to his skin Neuro: Awake alert oriented to person place and time. There are no acute new gross focal sensory motor deficits. - Labs CBC & Chem 7: 09/22/17 04:28 09/22/17 10:50 Labs: Abnormal Lab Results - Last 24 Hours (Table) 09/21/17 09/21/17 09/21/17 Range/Units 11:52 11:52 23:20 WBC (3.8-10.6) k/uL RBC (4.30-5.90) m/uL Hgb (13.0-17.5) gm/dL Hct (39.0-53.0) % RDW (11.5-15.5) % Plt Count (150-450) k/uL Neutrophils # (Manual) (1.3-7.7) k/uL Lymphocytes # (Manual) (1.0-4.8) k/uL PT (9.0-12.0) sec INR (<1.2) APTT (22.0-30.0) sec BUN (9-20) mg/dL Creatinine (0.66-1.25) mg/dL Glucose (74-99) mg/dL POC Glucose (mg/dL) (75-99) mg/dL Hemoglobin A1c 8.0 H (4.0-6.0) % Plasma Lactic Acid Alexei 4.3 H* (0.7-2.0) mmol/L Calcium (8.4-10.2) mg/dL Magnesium (1.6-2.3) mg/dL AST (17-59) U/L ALT (21-72) U/L Total Protein (6.3-8.2) g/dL Albumin (3.5-5.0) g/dL IgG 547.0 L (700.0-1600.0) mg/dL IgM 20.4 L (40.0-280.0) mg/dL 09/22/17 09/22/17 09/22/17 Range/Units 00:06 01:12 02:04 WBC (3.8-10.6) k/uL RBC (4.30-5.90) m/uL Hgb (13.0-17.5) gm/dL Hct (39.0-53.0) % RDW (11.5-15.5) % Plt Count (150-450) k/uL Neutrophils # (Manual) (1.3-7.7) k/uL Lymphocytes # (Manual) (1.0-4.8) k/uL PT (9.0-12.0) sec INR (<1.2) APTT (22.0-30.0) sec BUN (9-20) mg/dL Creatinine (0.66-1.25) mg/dL Glucose (74-99) mg/dL POC Glucose (mg/dL) 258 H 234 H 260 H (75-99) mg/dL Hemoglobin A1c (4.0-6.0) % Plasma Lactic Acid Alexei (0.7-2.0) mmol/L Calcium (8.4-10.2) mg/dL Magnesium (1.6-2.3) mg/dL AST (17-59) U/L ALT (21-72) U/L Total Protein (6.3-8.2) g/dL Albumin (3.5-5.0) g/dL IgG (700.0-1600.0) mg/dL IgM (40.0-280.0) mg/dL 09/22/17 09/22/17 09/22/17 Range/Units 03:04 03:10 04:05 WBC (3.8-10.6) k/uL RBC (4.30-5.90) m/uL Hgb (13.0-17.5) gm/dL Hct (39.0-53.0) % RDW (11.5-15.5) % Plt Count (150-450) k/uL Neutrophils # (Manual) (1.3-7.7) k/uL Lymphocytes # (Manual) (1.0-4.8) k/uL PT (9.0-12.0) sec INR (<1.2) APTT (22.0-30.0) sec BUN (9-20) mg/dL Creatinine (0.66-1.25) mg/dL Glucose (74-99) mg/dL POC Glucose (mg/dL) 255 H 218 H (75-99) mg/dL Hemoglobin A1c (4.0-6.0) % Plasma Lactic Acid Alexei 3.4 H* (0.7-2.0) mmol/L Calcium (8.4-10.2) mg/dL Magnesium (1.6-2.3) mg/dL AST (17-59) U/L ALT (21-72) U/L Total Protein (6.3-8.2) g/dL Albumin (3.5-5.0) g/dL IgG (700.0-1600.0) mg/dL IgM (40.0-280.0) mg/dL 09/22/17 09/22/17 09/22/17 Range/Units 04:28 04:28 04:28 WBC 15.8 H (3.8-10.6) k/uL RBC 3.74 L (4.30-5.90) m/uL Hgb 11.0 L (13.0-17.5) gm/dL Hct 32.5 L (39.0-53.0) % RDW 16.7 H (11.5-15.5) % Plt Count 67 L (150-450) k/uL Neutrophils # (Manual) 14.80 H (1.3-7.7) k/uL Lymphocytes # (Manual) 0.79 L (1.0-4.8) k/uL PT 16.1 H (9.0-12.0) sec INR 1.8 H (<1.2) APTT (22.0-30.0) sec BUN 38 H (9-20) mg/dL Creatinine 1.62 H (0.66-1.25) mg/dL Glucose 199 H (74-99) mg/dL POC Glucose (mg/dL) (75-99) mg/dL Hemoglobin A1c (4.0-6.0) % Plasma Lactic Acid Alexei (0.7-2.0) mmol/L Calcium 7.9 L (8.4-10.2) mg/dL Magnesium 2.4 H (1.6-2.3) mg/dL AST 1491 H (17-59) U/L ALT 1513 H (21-72) U/L Total Protein 5.7 L (6.3-8.2) g/dL Albumin 3.2 L (3.5-5.0) g/dL IgG (700.0-1600.0) mg/dL IgM (40.0-280.0) mg/dL 09/22/17 09/22/17 09/22/17 Range/Units 04:28 04:28 05:01 WBC (3.8-10.6) k/uL RBC (4.30-5.90) m/uL Hgb (13.0-17.5) gm/dL Hct (39.0-53.0) % RDW (11.5-15.5) % Plt Count (150-450) k/uL Neutrophils # (Manual) (1.3-7.7) k/uL Lymphocytes # (Manual) (1.0-4.8) k/uL PT (9.0-12.0) sec INR (<1.2) APTT 53.3 H (22.0-30.0) sec BUN (9-20) mg/dL Creatinine (0.66-1.25) mg/dL Glucose (74-99) mg/dL POC Glucose (mg/dL) 219 H (75-99) mg/dL Hemoglobin A1c (4.0-6.0) % Plasma Lactic Acid Alexei 3.3 H* (0.7-2.0) mmol/L Calcium (8.4-10.2) mg/dL Magnesium (1.6-2.3) mg/dL AST (17-59) U/L ALT (21-72) U/L Total Protein (6.3-8.2) g/dL Albumin (3.5-5.0) g/dL IgG (700.0-1600.0) mg/dL IgM (40.0-280.0) mg/dL 09/22/17 09/22/17 09/22/17 Range/Units 06:13 06:55 08:01 WBC (3.8-10.6) k/uL RBC (4.30-5.90) m/uL Hgb (13.0-17.5) gm/dL Hct (39.0-53.0) % RDW (11.5-15.5) % Plt Count (150-450) k/uL Neutrophils # (Manual) (1.3-7.7) k/uL Lymphocytes # (Manual) (1.0-4.8) k/uL PT (9.0-12.0) sec INR (<1.2) APTT (22.0-30.0) sec BUN (9-20) mg/dL Creatinine (0.66-1.25) mg/dL Glucose (74-99) mg/dL POC Glucose (mg/dL) 224 H 234 H (75-99) mg/dL Hemoglobin A1c (4.0-6.0) % Plasma Lactic Acid Alexei 2.8 H* (0.7-2.0) mmol/L Calcium (8.4-10.2) mg/dL Magnesium (1.6-2.3) mg/dL AST (17-59) U/L ALT (21-72) U/L Total Protein (6.3-8.2) g/dL Albumin (3.5-5.0) g/dL IgG (700.0-1600.0) mg/dL IgM (40.0-280.0) mg/dL 09/22/17 09/22/17 09/22/17 Range/Units 08:52 10:18 11:54 WBC (3.8-10.6) k/uL RBC (4.30-5.90) m/uL Hgb (13.0-17.5) gm/dL Hct (39.0-53.0) % RDW (11.5-15.5) % Plt Count (150-450) k/uL Neutrophils # (Manual) (1.3-7.7) k/uL Lymphocytes # (Manual) (1.0-4.8) k/uL PT (9.0-12.0) sec INR (<1.2) APTT (22.0-30.0) sec BUN (9-20) mg/dL Creatinine (0.66-1.25) mg/dL Glucose (74-99) mg/dL POC Glucose (mg/dL) 236 H 215 H 203 H (75-99) mg/dL Hemoglobin A1c (4.0-6.0) % Plasma Lactic Acid Alexei (0.7-2.0) mmol/L Calcium (8.4-10.2) mg/dL Magnesium (1.6-2.3) mg/dL AST (17-59) U/L ALT (21-72) U/L Total Protein (6.3-8.2) g/dL Albumin (3.5-5.0) g/dL IgG (700.0-1600.0) mg/dL IgM (40.0-280.0) mg/dL 09/22/17 09/22/17 09/22/17 Range/Units 13:07 14:21 16:48 WBC (3.8-10.6) k/uL RBC (4.30-5.90) m/uL Hgb (13.0-17.5) gm/dL Hct (39.0-53.0) % RDW (11.5-15.5) % Plt Count (150-450) k/uL Neutrophils # (Manual) (1.3-7.7) k/uL Lymphocytes # (Manual) (1.0-4.8) k/uL PT (9.0-12.0) sec INR (<1.2) APTT (22.0-30.0) sec BUN (9-20) mg/dL Creatinine (0.66-1.25) mg/dL Glucose (74-99) mg/dL POC Glucose (mg/dL) 204 H 268 H 146 H (75-99) mg/dL Hemoglobin A1c (4.0-6.0) % Plasma Lactic Acid Alexei (0.7-2.0) mmol/L Calcium (8.4-10.2) mg/dL Magnesium (1.6-2.3) mg/dL AST (17-59) U/L ALT (21-72) U/L Total Protein (6.3-8.2) g/dL Albumin (3.5-5.0) g/dL IgG (700.0-1600.0) mg/dL IgM (40.0-280.0) mg/dL 09/22/17 09/22/17 09/22/17 Range/Units 18:16 18:58 19:47 WBC (3.8-10.6) k/uL RBC (4.30-5.90) m/uL Hgb (13.0-17.5) gm/dL Hct (39.0-53.0) % RDW (11.5-15.5) % Plt Count (150-450) k/uL Neutrophils # (Manual) (1.3-7.7) k/uL Lymphocytes # (Manual) (1.0-4.8) k/uL PT (9.0-12.0) sec INR (<1.2) APTT (22.0-30.0) sec BUN (9-20) mg/dL Creatinine (0.66-1.25) mg/dL Glucose (74-99) mg/dL POC Glucose (mg/dL) 198 H 185 H 200 H (75-99) mg/dL Hemoglobin A1c (4.0-6.0) % Plasma Lactic Acid Alexei (0.7-2.0) mmol/L Calcium (8.4-10.2) mg/dL Magnesium (1.6-2.3) mg/dL AST (17-59) U/L ALT (21-72) U/L Total Protein (6.3-8.2) g/dL Albumin (3.5-5.0) g/dL IgG (700.0-1600.0) mg/dL IgM (40.0-280.0) mg/dL 09/22/17 09/22/17 09/22/17 Range/Units 21:21 22:01 23:05 WBC (3.8-10.6) k/uL RBC (4.30-5.90) m/uL Hgb (13.0-17.5) gm/dL Hct (39.0-53.0) % RDW (11.5-15.5) % Plt Count (150-450) k/uL Neutrophils # (Manual) (1.3-7.7) k/uL Lymphocytes # (Manual) (1.0-4.8) k/uL PT (9.0-12.0) sec INR (<1.2) APTT (22.0-30.0) sec BUN (9-20) mg/dL Creatinine (0.66-1.25) mg/dL Glucose (74-99) mg/dL POC Glucose (mg/dL) 199 H 204 H 177 H (75-99) mg/dL Hemoglobin A1c (4.0-6.0) % Plasma Lactic Acid Alexei (0.7-2.0) mmol/L Calcium (8.4-10.2) mg/dL Magnesium (1.6-2.3) mg/dL AST (17-59) U/L ALT (21-72) U/L Total Protein (6.3-8.2) g/dL Albumin (3.5-5.0) g/dL IgG (700.0-1600.0) mg/dL IgM (40.0-280.0) mg/dL Microbiology - Last 24 Hours (Table) 09/21/17 00:32 Urine Culture - Preliminary Urine,Catheterized 09/20/17 23:26 Blood Culture - Preliminary Blood No Growth after 24 hours Laboratory Results WBC 15.8 k/uL (3.8-10.6) H 09/22/17 04:28 RBC 3.74 m/uL (4.30-5.90) L 09/22/17 04:28 Hgb 11.0 gm/dL (13.0-17.5) L 09/22/17 04:28 Hct 32.5 % (39.0-53.0) L 09/22/17 04:28 MCV 86.9 fL (80.0-100.0) 09/22/17 04:28 MCH 29.4 pg (25.0-35.0) 09/22/17 04:28 MCHC 33.8 g/dL (31.0-37.0) 09/22/17 04:28 RDW 16.7 % (11.5-15.5) H 09/22/17 04:28 Plt Count 67 k/uL (150-450) L 09/22/17 04:28 Neutrophils % (Manual) 74 % 09/22/17 04:28 Band Neutrophils % 20 % 09/22/17 04:28 Lymphocytes % (Manual) 5 % 09/22/17 04:28 Monocytes % (Manual) 1 % 09/22/17 04:28 Myelocytes % 1 % 09/21/17 04:40 Neutrophils # (Manual) 14.80 k/uL (1.3-7.7) H 09/22/17 04:28 Lymphocytes # (Manual) 0.79 k/uL (1.0-4.8) L 09/22/17 04:28 Monocytes # (Manual) 0.16 k/uL (0-1.0) 09/22/17 04:28 Myelocytes # (Manual) 0.13 k/uL (0) H 09/21/17 04:40 Nucleated RBCs 0 /100 WBC (0-0) 09/22/17 04:28 Manual Slide Review Performed 09/22/17 04:28 Toxic Vacuolation Present 09/21/17 04:40 Large Platelets Present 09/22/17 04:28 Hypochromasia Moderate 09/21/17 04:40 Poikilocytosis Slight 09/22/17 04:28 Anisocytosis Slight 09/22/17 04:28 PT 16.1 sec (9.0-12.0) H 09/22/17 04:28 INR 1.8 (<1.2) H 09/22/17 04:28 APTT 53.3 sec (22.0-30.0) H 09/22/17 04:28 D-Dimer 12.09 mg/L FEU (<0.60) H 09/20/17 23:26 Sodium 142 mmol/L (137-145) 09/22/17 04:28 Potassium 4.0 mmol/L (3.5-5.1) 09/22/17 10:50 Chloride 105 mmol/L (98-107) 09/22/17 04:28 Carbon Dioxide 27 mmol/L (22-30) 09/22/17 04:28 Anion Gap 10 mmol/L 09/22/17 04:28 BUN 38 mg/dL (9-20) H 09/22/17 04:28 Creatinine 1.62 mg/dL (0.66-1.25) H 09/22/17 04:28 Est GFR (CKD-EPI)AfAm 55 (>60 ml/min/1.73 sqM) 09/22/17 04:28 Est GFR (CKD-EPI)NonAf 48 (>60 ml/min/1.73 sqM) 09/22/17 04:28 Glucose 199 mg/dL (74-99) H 09/22/17 04:28 POC Glucose (mg/dL) 177 mg/dL (75-99) H 09/22/17 23:05 POC Glu Pre Press Operator ID [place] 09/22/17 23:[address] Glu mg/dL 183 09/21/17 11:52 Hemoglobin A1c 8.0 % (4.0-6.0) H 09/21/17 11:52 Lactic Ac Sepsis Rflx Y 09/22/17 04:56 Plasma Lactic Acid Alexei 2.8 mmol/L (0.7-2.0) H* 09/22/17 08:01 Calcium 7.9 mg/dL (8.4-10.2) L 09/22/17 04:28 Phosphorus 3.4 mg/dL (2.5-4.5) 09/22/17 04:28 Magnesium 2.4 mg/dL (1.6-2.3) H 09/22/17 04:28 Total Bilirubin 1.1 mg/dL (0.2-1.3) 09/22/17 04:28 Conjugated Bilirubin 0.1 mg/dL (0.0-0.3) 09/20/17 23:26 Unconjugated Bilirubin 0.3 mg/dL (0.0-1.1) 09/20/17 23:26 Delta Bilirubin 0.9 mg/dL (0.0-0.2) H 09/20/17 23:26 AST 1491 U/L (17-59) H 09/22/17 04:28 ALT 1513 U/L (21-72) H 09/22/17 04:28 Alkaline Phosphatase 72 U/L (38-126) 09/22/17 04:28 Troponin I 0.025 ng/mL (0.000-0.034) 09/21/17 04:40 NT-Pro-B Natriuret Pep 8370 pg/mL 09/20/17 23:26 Total Protein 5.7 g/dL (6.3-8.2) L 09/22/17 04:28 Albumin 3.2 g/dL (3.5-5.0) L 09/22/17 04:28 Amylase 34 U/L (30-110) 09/22/17 10:50 Lipase 174 U/L (23-300) 09/22/17 10:50 Urine Color Yellow 09/21/17 00:32 Urine Appearance Cloudy (Clear) 09/21/17 00:32 Urine pH 5.5 (5.0-8.0) 09/21/17 00:32 Ur Specific [place] 1.017 (1.001-1.035) 09/21/17 00:32 Urine Protein 1+ (Negative) H 09/21/17 00:32 Urine Glucose (UA) 2+ (Negative) H 09/21/17 00:32 Urine Ketones Trace (Negative) H 09/21/17 00:32 Urine Blood Negative (Negative) 09/21/17 00:32 Urine Nitrite Negative (Negative) 09/21/17 00:32 Urine Bilirubin Negative (Negative) 09/21/17 00:32 Urine Urobilinogen <2.0 mg/dL (<2.0) 09/21/17 00:32 Ur Leukocyte Esterase Negative (Negative) 09/21/17 00:32 Urine RBC 1 /hpf (0-5) 09/21/17 00:32 Urine WBC 6 /hpf (0-5) H 09/21/17 00:32 Hyaline Casts 8 /lpf (0-2) H 09/21/17 00:32 Urine Mucus Occasional /hpf (None) H 09/21/17 00:32 Acetone, Qual Negative (Negative) 09/20/17 23:26 IgG 547.0 mg/dL (700.0-1600.0) L 09/21/17 11:52 IgA 159.0 mg/dL (60.0-350.0) 09/21/17 11:52 IgM 20.4 mg/dL (40.0-280.0) L 09/21/17 11:52 Influenza Type A RNA Not Detected (Not Detectd) 09/20/17 23:40 Influenza Type B (PCR) Not Detected (Not Detectd) 09/20/17 23:40 Blood Type AB Positive 09/21/17 00:15 Blood Type Recheck No 09/21/17 00:15 Antibody Screen NEGATIVE 09/21/17 00:15 Spec Expiration Date 09/24/2017 - 9235 09/21/17 00:15 Microbiology 09/21/17 00:32 Urine,Catheterized Urine Culture - Preliminary 09/20/17 23:26 Blood Blood Culture - Preliminary No Growth after 24 hours - Imaging and Cardiology Chest x-ray: report reviewed (Stable) Assessment and Plan (1) Dog bite Narrative/Plan: 52-year-old male presents to the emergency center several days after a dog bite that occurred to his left hand. The dog is a show dog and is well vaccinated. By circumstances it appears that the bite was a provoked event. The patient himself has had severe amounts of vaccine over time and believes he is up-to-date with his tetanus vaccine. 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 Antibiotic therapy is being altered to meropenem to ensure coverage as well as continue vancomycin for now until there is further data. Regretfully this pathogen is quite slow-growing immediately difficult to isolate in the near future. For now continue the supportive care and aggressive antibiotic therapy. The patient did have significant respiratory distress earlier was treated with BiPAP and is now on nasal cannula oxygen, may have an improvement from the diuresis. He is receiving intravenous heparin and this is being monitored closely from the pulmonary critical care service. The patient continues to have an elevated lactic acid, it is disproportionate and maybe markedly elevated due to his acute renal failure and may also be impacted by his underlying [id number] disease. If he has further fevers blood culture should be obtained. 09/22/2017 reveals the patient to be somewhat improved from 24 hours ago. He has less short of breath but continues to have some shortness of breath greater than his baseline. He is having no evidence of bleeding, questionable pulmonary critical care to consider discontinuation of the heparin given his significant shock liver that is not been noted. The patient the likelihood of a pulmonary embolus. Concerns to capnocytophagia infection, continue meropenem and vancomycin for now while cultures are prior cyst laboratory may need to hold onto cultures for extended period of time for final identification. Fortunately he seems to be doing somewhat better which may partially due to the large doses of steroids that is receiving for his pulmonary status. The IgG level is somewhat low and this will be discussed with the oncologist as to supplementation given his current significant level of illness. 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
[2017-09-23] MEDS: methylPREDNISolone SOD SUCCI 125 MG/2 ML VIAL IV SCH ×5 (00:07→23:44)
[2017-09-23] MEDS: SODIUM CHLORIDE 0.9% 1,000 ML IV SCH ×2 (00:08→17:34)
[2017-09-23] MEDS: SALT AND SODA MOUTHWASH 1,000 ML PO SCH ×5 (00:08→22:57)
[2017-09-23 00:09] LABS: Glucose,Whole Blood 207 mg/dL (75-99)
[2017-09-23 01:04] LABS: Glucose,Whole Blood 202 mg/dL (75-99)
[2017-09-23 02:10] LABS: Glucose,Whole Blood 118 mg/dL (75-99)
[2017-09-23 05:58] LABS: Glucose,Whole Blood 173 mg/dL (75-99)
[2017-09-23 05:58] LABS: Glucose,Whole Blood 150 mg/dL (75-99)
[2017-09-23 05:58] LABS: Glucose,Whole Blood 146 mg/dL (75-99)
[2017-09-23 06:21] LABS: Glucose,Whole Blood 168 mg/dL (75-99)
[2017-09-23] MEDS ORDERED: ENOXAPARIN 30 MG/0.3 ML SYRINGE SQ ONE (06:27)
[2017-09-23] MEDS ORDERED: INSULIN ASPART 100 UNIT/ML 1 ML 10 ML VIAL SQ ONE (06:27)
[2017-09-23] MEDS ORDERED: CLOPIDOGREL 75 MG TAB ONE (06:27)
[2017-09-23] MEDS ORDERED: methylPREDNISolone SOD SUCCI 125 MG/2 ML VIAL ONE (06:27)
[2017-09-23] MEDS ORDERED: IPRATROPIUM-ALBUTEROL 3 ML NEB ONE (06:27)
[2017-09-23] MEDS ORDERED: LISINOPRIL 10 MG TAB ONE (06:27)
[2017-09-23] MEDS ORDERED: METOPROLOL TARTRATE 25 MG TAB ONE (06:27)
[2017-09-23] MEDS ORDERED: PANTOPRAZOLE 40 MG/10 ML VIAL ONE (06:27)
[2017-09-23 07:05] LABS: Glucose,Whole Blood 138 mg/dL (75-99)
--- NOTE | 2017-09-23 07:20 | XR ---
EXAMINATION TYPE: XR chest 1V DATE OF EXAM: 09/23/2017 CLINICAL HISTORY: Difficulty breathing progress study. TECHNIQUE: Single AP portable upright view of the chest is obtained. COMPARISON: Chest x-ray from one day earlier and older studies. CT chest from 2 days ago. FINDINGS: Somewhat low lung volumes with elevated left hemidiaphragm is redemonstrated. Suspect some developing patchy bibasilar atelectasis and/or infiltrate. No pleural effusion or pneumothorax is se en bilaterally. Cardiac silhouette size is stable and upper limits of normal. Osseous structures are intact. IMPRESSION: Low lung volumes with developing patchy bibasilar atelectasis and/or less likely infiltra te.
[2017-09-23 07:41] LABS: Alkaline Phosphatase 110 U/L (38-126); Anion Gap 11 mmol/L; Blood Urea Nitrogen 37 mg/dL (9-20); Calcium 7.7 mg/dL (8.4-10.2); Carbon Dioxide 23 mmol/L (22-30); Chloride 108 mmol/L (98-107); Glucose 135 mg/dL (74-99); Magnesium 2.8 mg/dL (1.6-2.3); Phosphorus 2.4 mg/dL (2.5-4.5); Sodium 142 mmol/L (137-145); Total Protein 5.2 g/dL (6.3-8.2)
[2017-09-23 07:42] LABS: Anisocytosis Slight; HCT 34.6 % (39.0-53.0); HGB 11.3 gm/dL (13.0-17.5); Hypochromasia Slight; MCH 28.6 pg (25.0-35.0); MCHC 32.6 g/dL (31.0-37.0); MCV 87.8 fL (80.0-100.0); Mean Platelet Volume 9.2; Poikilocytosis Slight; RBC 3.94 m/uL (4.30-5.90); RDW 16.6 % (11.5-15.5)
[2017-09-23 07:44] LABS: INR 1.2 (<1.2); Partial Thromboplastin Time 24.6 sec (22.0-30.0); Prothrombin Time 11.6 sec (9.0-12.0)
[2017-09-23 08:05] LABS: Glucose,Whole Blood 174 mg/dL (75-99)
[2017-09-23 09:11] LABS: Glucose,Whole Blood 252 mg/dL (75-99)
[2017-09-23 10:16] LABS: Glucose,Whole Blood 248 mg/dL (75-99)
--- NOTE | 2017-09-23 10:42 | P.PN ---
Subjective Progress Note Date: 09/23/17 Principal diagnosis: Acute septic shock and sepsis This is a 52-year-old white male with history of CML and bone marrow transplant in 2006, patient has been on antirejection therapy for quite some time, a year ago stopped taking his anti rejection therapy on his own. Patient is also known to have history of diabetes, hypertension, coronary artery disease and previous stent placement, history of bronchial asthma and obstructive sleep apnea as well as peripheral vessel occlusive disease. Last , which is 4 days ago, patient was bit at his left hand by a showed dog who is supposedly immunized fully. Patient did not seek any medical attention, he just cleaned his wound and placed topical antibiotics on the site of the bite. Patient developed some swelling and redness around the puncture site, there was no evidence of any purulent drainage, and he was happy that the area seems to be healing on its own. Last night, the patient developed fever with a temp as high as 102, shortness of breath, wheezing, diarrhea, nonbloody, some vague abdominal discomfort, episodes of nausea but no vomiting, and significant lower chest and upper abdominal pain. Upon presentation to the ER, his lactic acid was elevated, patient was hypotensive requiring fluid boluses, and he also required levo fed, presently on for mics of levo fed. Patient was admitted with the impression of septic shock and sepsis. Broad-spectrum antibiotics were initiated, presently on vancomycin and cefepime. Patient is also noted to have acute kidney injury. For some reason a VQ scan was ordered, but the patient is presently on heparin, and the clinical history does not suggestive of pulmonary embolism. His shortness of breath is easily explained by his sepsis and his wheezing noted on physical examination. CT of the abdomen without contrast was noted to be unremarkable. Lasix was given earlier since the patient received significant amount of fluid boluses earlier, and his urine output was marginal. During my evaluation, patient was noted to be slightly dyspneic, anxious, and on for mics of levo fed for adequate mean arterial pressure of 70. Patient denies any chest pain, he does have fever and chills, generalized aches, no dysuria, no frequency, no urgency. He does have intermittent episodes of dry hacking cough and wheezing. Chest x-ray on admission and chest x-ray this morning is basically normal. Patient was reevaluated today on 09/22/2017, off pressors, on nasal cannula, in no distress, significant improvement noted in the last 24 hours, his lactic acid today is 2.8. Patient is feeling better, breathing easier, urine output is excellent, continues to have leukocytosis with WBC count of 15.8, PTT is therapeutic at 53.3, electrolytes are significantly improved renal profile is significantly improved with a BUN of 38 creatinine of 1.62, however liver profile seems to be worsening, elevated transaminases were noted. Blood cultures remain negative. Patient was seen by Dr. Hill yesterday, and he was placed on Merrem. Replacing cefepime. Patient remains on vancomycin. Dr. Hill seems to be concerned about the possibility of Capnocytophagia canimorsus which is a very fastidious organism, and will take a long time to grow and cultures. Clinically the patient is better except for the elevated liver enzymes. His breathing is significantly improved. Patient remains on steroids, he is also on heparin, I will likely discontinue heparin if we get to the point where a CT angiogram of the chest can be done once his renal profile improves, my index of suspicion for pulmonary embolism is rather low, venous Doppler was negative, patient did have elevated d-dimer on admission. And the presentation is mostly a presentation of sepsis rather than thromboembolic disease. Chest x-ray this morning showed mild pulmonary venous congestion without overt failure. Urine output is excellent, patient is putting out about 100 mL per hour. He is hemodynamically stable, and norepinephrine was discontinued at 1 PM yesterday. Patient was seen today again on 09/23/2017, patient is doing relatively well, asymptomatic except for some vague abdominal discomfort, denies any cough wheezing or shortness of breath, afebrile, hemodynamically stable. Patient is off norepinephrine, and has been off norepinephrine for the last 2 days. His CBC however is showing significant worsening, WBC count is in the 24,000 range, abnormal differential noted, and abnormal peripheral smear noted. His renal functioning has improved significantly, started out with a creatinine of 3.20, however his creatinine today is 1.1. Urine output is excellent. Liver enzymes remain elevated. Cultures including blood cultures are negative so far. Objective - Vital Signs Vital signs: Vital Signs Temp 97.4 F L 09/23/17 00:00 Pulse 70 09/23/17 02:00 Resp 15 06/27/18 02:00 BP 115/69 09/23/17 02:00 Pulse Ox 97 09/23/17 02:00 Intake & Output 09/22/17 09/23/17 09/23/17 18:59 06:59 18:59 Intake Total 1016.562 591.944 Output Total 1155 890 Balance -138.438 -298.056 Weight 102 kg Intake: IV 940 520 Cefepime 2 gm In Sodium 50 Chloride 0.9% 50 ml @ 100 mls/hr IVPB Q12HR [facility] Rx #:[id number] Meropenem 1 gm In Sodium 100 Chloride 0.9% 100 ml @ 100 mls/hr IVPB Q12H [facility] Rx#:[id number] Sodium Chloride 0.45% 1, 400 000 ml @ 100 mls/hr IV . Q11H [facility] with Sodium Bicarb (1 Meq/ml) 100 ml Rx#:[id number] Sodium Chloride 0.9% 1, 490 420 000 ml @ 70 mls/hr IV . [id number] [facility] Rx#:[id number] Intake, IV Titration 76.562 71.944 Amount Insulin Regular 100 unit 76.562 71.944 In Sodium Chloride 0.9% 100 ml @ Per Protocol IV .Q0M [facility] Rx#:[id number] Output: Urine 1155 890 Other: Voiding Method Indwelling Catheter Indwelling Catheter - Exam Physical Exam: Revealed a 52-year-old white male, in no form of respiratory distress, patient is presently on nasal cannula at 3 L/m. Head: Atraumatic, normocephalic. HEENT:[Neck is supple.] [No neck masses.] [No thyromegaly.] [No JVD.] Dry mucous membranes, PERRLA, EOMI. Chest: [Diminished breath sounds bilaterally, no crackles, no rhonchi, no wheezes. Cardiac Exam: [Normal S1 and S2, no S3 gallop, no murmur.] Abdomen: [Soft, nontender, no megaly, no rebound, no guarding, normal bowel sounds.] Extremities: [No clubbing, no edema, no cyanosis.] Neurological Exam: [No focal neurologic deficit.] Lymphatics: No lymphadenopathy. Psychiatric: Normal mood affect and mental status examination. Skin: Left hand small laceration is noted between the thumb and first finger with some scabbing, no fluctuance, no redness, no pus was noted, puncture garza noted on the lateral aspect of the left hand posteriorly. - Labs CBC & Chem 7: 09/22/17 04:28 09/22/17 10:50 Labs: Abnormal Lab Results - Last 24 Hours (Table) 09/21/17 09/22/17 09/22/17 Range/Units 11:52 11:54 13:07 POC Glucose (mg/dL) 203 H 204 H (75-99) mg/dL IgG 547.0 L (700.0-1600.0) mg/dL IgM 20.4 L (40.0-280.0) mg/dL 09/22/17 09/22/17 09/22/17 Range/Units 14:21 16:48 18:16 POC Glucose (mg/dL) 268 H 146 H 198 H (75-99) mg/dL IgG (700.0-1600.0) mg/dL IgM (40.0-280.0) mg/dL 09/22/17 09/22/17 09/22/17 Range/Units 18:58 19:47 21:21 POC Glucose (mg/dL) 185 H 200 H 199 H (75-99) mg/dL IgG (700.0-1600.0) mg/dL IgM (40.0-280.0) mg/dL 09/22/17 09/22/17 09/23/17 Range/Units 22:01 23:05 00:07 POC Glucose (mg/dL) 204 H 177 H 207 H (75-99) mg/dL IgG (700.0-1600.0) mg/dL IgM (40.0-280.0) mg/dL 09/23/17 09/23/17 09/23/17 Range/Units 01:03 02:08 02:58 POC Glucose (mg/dL) 202 H 118 H 146 H (75-99) mg/dL IgG (700.0-1600.0) mg/dL IgM (40.0-280.0) mg/dL 09/23/17 09/23/17 09/23/17 Range/Units 04:04 05:09 06:20 POC Glucose (mg/dL) 150 H 173 H 168 H (75-99) mg/dL IgG (700.0-1600.0) mg/dL IgM (40.0-280.0) mg/dL 09/23/17 09/23/17 09/23/17 Range/Units 07:03 08:03 09:09 POC Glucose (mg/dL) 138 H 174 H 252 H (75-99) mg/dL IgG (700.0-1600.0) mg/dL IgM (40.0-280.0) mg/dL 09/23/17 Range/Units 10:15 POC Glucose (mg/dL) 248 H (75-99) mg/dL IgG (700.0-1600.0) mg/dL IgM (40.0-280.0) mg/dL Microbiology - Last 24 Hours (Table) 09/20/17 23:26 Blood Culture - Preliminary Blood No Growth after 48 hours 09/21/17 00:32 Urine Culture - Preliminary Urine,Catheterized Assessment and Plan Assessment: 1. Acute sepsis and septic shock, most likely secondary to his recent dog bite. Hence we'll continue IV antibiotic, fluids, 2. Shortness of breath with chest pain and Elevated d-dimer: Index of suspicion for pulmonary embolism is extremely low, hence I have discontinued his heparin completely. And no need for a CT angiogram of the chest at this point. 3. Acute kidney injury secondary to sepsis and septic shock , improving significantly. 5. Acute asthma exacerbation , presently on bronchodilators and IV Solu-Medrol. 6. Acute gastroenteritis, C. difficile colitis was actually ruled out.. The possibility of graft versus host disease is in the differential diagnoses, but felt to be less likely clinically. Diarrhea has resolved, elevated liver enzymes are a bit concerning, but we'll continue to monitor for now. Patient remains on Solu-Medrol, but is relatively small dose. 7 multiple comorbidities including diabetes type 2, history of CML, history of coronary artery disease and previous stent placement, and history of peripheral vessel occlusive disease with recent percutaneous superficial femoral artery atherectomy and percutaneous transluminal balloon angioplasty of the left leg in July of 2017. Recommendation: Continue present treatment plan, I plan to transfer the patient to the medical floor today, we'll continue to monitor his liver enzymes, continue to monitor renal profile, continue antibiotics, and these will be adjusted accordingly. Time with Patient: Less than 30
[2017-09-23] MEDS: IPRATROPIUM-ALBUTEROL 3 ML NEB INHALATION SCH ×5 (11:40→23:51)
[2017-09-23] MEDS: MEROPENEM 1 GM in SODIUM CHLORIDE 0.9% 100 ML IVPB SCH ×2 (11:40→21:02)
[2017-09-23] MEDS: ENOXAPARIN 30 MG/0.3 ML SYRINGE SQ SCH (11:41)
[2017-09-23] MEDS: CLOPIDOGREL 75 MG TAB PO SCH (11:41)
[2017-09-23] MEDS: VANCOMYCIN 1,750 MG in SODIUM CHLORIDE 0.9% 500 ML IVPB SCH (11:41)
[2017-09-23] MEDS: PANTOPRAZOLE 40 MG/10 ML VIAL IV SCH (11:41)
--- NOTE | 2017-09-23 11:41 | P.PN ---
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 He is going to medical floor today. Objective - Vital Signs Vital signs: Vital Signs Temp 98.4 F 09/23/17 08:00 Pulse 75 09/23/17 10:00 Resp 19 09/23/17 10:00 BP 112/70 09/23/17 10:00 Pulse Ox 99 09/23/17 10:00 Intake & Output 09/22/17 09/23/17 09/23/17 18:59 06:59 18:59 Intake Total 1016.562 591.944 780 Output Total 1155 890 550 Balance -138.438 -298.056 230 Weight 102 kg Intake: IV 940 520 420 Cefepime 2 gm In Sodium 50 Chloride 0.9% 50 ml @ 100 mls/hr IVPB Q12HR [facility] Rx #:[id number] Meropenem 1 gm In Sodium 100 100 Chloride 0.9% 100 ml @ 100 mls/hr IVPB Q12H [facility] Rx#:[id number] Sodium Chloride 0.45% 1, 400 000 ml @ 100 mls/hr IV . Q11H [facility] with Sodium Bicarb (1 Meq/ml) 100 ml Rx#:[id number] Sodium Chloride 0.9% 1, 490 420 70 000 ml @ 50 mls/hr IV . Q20H [facility] Rx#:[id number] Vancomycin 1,750 mg In 250 Sodium Chloride 0.9% 500 ml @ 167 mls/hr IVPB Q24HR@0800 [facility] Rx#: [id number] Intake, IV Titration 76.562 71.944 Amount Insulin Regular 100 unit 76.562 71.944 In Sodium Chloride 0.9% 100 ml @ Per Protocol IV .Q0M [facility] Rx#:[id number] Oral 360 Output: Urine 1155 890 550 Other: Voiding Method Indwelling Catheter Indwelling Catheter - Constitutional General appearance: Present: cooperative, no acute distress, obese - EENT ENT: Present: pharyngeal erythema (stable) - Respiratory Respiratory: bilateral: CTA - Cardiovascular Heart sounds: normal: S1, S2 - Peripheral edema leg Peripheral Edema: bilateral: Trace - Gastrointestinal General gastrointestinal: Present: normal bowel sounds, soft - Neurologic Neurologic: Present: CNII-XII intact - Musculoskeletal Musculoskeletal: Present: strength equal bilaterally - Psychiatric Psychiatric: Present: A&O x's 3, appropriate affect, intact judgment & insight - Labs CBC & Chem 7: 09/23/17 04:21 09/22/17 10:50 Labs: Abnormal Lab Results - Last 24 Hours (Table) 09/21/17 09/22/17 09/22/17 Range/Units 11:52 11:54 13:07 INR (<1.2) POC Glucose (mg/dL) 203 H 204 H (75-99) mg/dL IgG 547.0 L (700.0-1600.0) mg/dL IgM 20.4 L (40.0-280.0) mg/dL 09/22/17 09/22/17 09/22/17 Range/Units 14:21 16:48 18:16 INR (<1.2) POC Glucose (mg/dL) 268 H 146 H 198 H (75-99) mg/dL IgG (700.0-1600.0) mg/dL IgM (40.0-280.0) mg/dL 09/22/17 09/22/17 09/22/17 Range/Units 18:58 19:47 21:21 INR (<1.2) POC Glucose (mg/dL) 185 H 200 H 199 H (75-99) mg/dL IgG (700.0-1600.0) mg/dL IgM (40.0-280.0) mg/dL 09/22/17 09/22/17 09/23/17 Range/Units 22:01 23:05 00:07 INR (<1.2) POC Glucose (mg/dL) 204 H 177 H 207 H (75-99) mg/dL IgG (700.0-1600.0) mg/dL IgM (40.0-280.0) mg/dL 09/23/17 09/23/17 09/23/17 Range/Units 01:03 02:08 02:58 INR (<1.2) POC Glucose (mg/dL) 202 H 118 H 146 H (75-99) mg/dL IgG (700.0-1600.0) mg/dL IgM (40.0-280.0) mg/dL 09/23/17 09/23/17 09/23/17 Range/Units 04:04 04:21 05:09 INR 1.2 H (<1.2) POC Glucose (mg/dL) 150 H 173 H (75-99) mg/dL IgG (700.0-1600.0) mg/dL IgM (40.0-280.0) mg/dL 09/23/17 09/23/17 09/23/17 Range/Units 06:20 07:03 08:03 INR (<1.2) POC Glucose (mg/dL) 168 H 138 H 174 H (75-99) mg/dL IgG (700.0-1600.0) mg/dL IgM (40.0-280.0) mg/dL 09/23/17 09/23/17 Range/Units 09:09 10:15 INR (<1.2) POC Glucose (mg/dL) 252 H 248 H (75-99) mg/dL IgG (700.0-1600.0) mg/dL IgM (40.0-280.0) mg/dL Microbiology - Last 24 Hours (Table) 09/20/17 23:26 Blood Culture - Preliminary Blood No Growth after 48 hours 09/21/17 00:32 Urine Culture - Preliminary Urine,Catheterized - Imaging and Cardiology Chest x-ray: report reviewed Assessment and Plan (1) 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 Pt needs to f/u with transplant team and resume immunosuppression treatment once he has recovered form his current sepsis. Current Visit: Yes Status: Chronic Priority: High Code(s): T86.09 - OTHER COMPLICATIONS OF BONE MARROW TRANSPLANT SNOMED Code(s): 779839372 (2) Status post bone marrow transplant Current Visit: No Status: Chronic Code(s): Z94.81 - BONE MARROW TRANSPLANT STATUS SNOMED Code(s): 035928684 (3) CML (chronic myeloid leukemia) Current Visit: No Status: Chronic Priority: Low Code(s): C92.10 - CHRONIC MYELOID LEUK, BCR/ABL-POSITIVE, NOT ACHIEVE REMIS SNOMED Code(s): 08698786 Plan: Immunoglobulin levels reviewed. IVIG ordered for replacement Doctor attests:I have performed a history and physical exam of this pt, discussed with dictator. I agree with dictated note, documented as a scribe.
[2017-09-23 11:50] LABS: Amylase 75 U/L (30-110); Lipase 389 U/L (23-300)
[2017-09-23 12:19] LABS: Glucose,Whole Blood 270 mg/dL (75-99)
[2017-09-23] MEDS: INSULIN ASPART 100 UNIT/ML 1 ML 10 ML VIAL SQ SCH ×3 (12:21→21:04)
[2017-09-23 12:48] LABS: Platelet Count 85 k/uL (150-450)
[2017-09-23 12:50] LABS: Band Neutrophils % 4 %; Howell-Jolly Bodies Present; Lymphocytes # (M) 0.99 k/uL (1.0-4.8); Monocytes # (M) 0.25 k/uL (0-1.0); Neutrophils % (M) 91 %; Nucleated Red Blood Cells 2 /100 WBC (0-0); Ovalocytes Present; RBC Fragments Present; Spherocytes Present; Target Cells Present; Total Cells Counted 100; WBC 24.7 k/uL (3.8-10.6)
[2017-09-23] MEDS ORDERED: IMMUNE GLOBULIN (HUMAN-IGG) 1 GM/10 ML VIAL IV ONE (13:34)
--- NOTE | 2017-09-23 14:17 | P.PN ---
Subjective Progress Note Date: 09/23/17 this is a 52-year-old male, patient of Dr. Sweeney. He has a known past medical history of CML with a bone marrow transplant in 2006 and previous chemo treatment. He has been off of his antirejection medications for about a year. Patient reports that he did not want to take 50 pounds. He also has a known history of asthma, coronary disease with stent, hypertension, diabetes mellitus , hyperlipidemia, obstructive sleep apnea and peripheral vascular disease. Patient reports last about 4 days ago he received a dog bite to the left hand. The dog's family dog and up-to-date on immunizations. He reports that he had some swelling in the hand and redness around the puncture sites. No pus drainage. He reports that it seemed to be healing. Thursday patient started to not feel well. He was feverish with a temp of 102. Having chills and sweats. Also started to have some nausea and diarrhea. Decrease in appetite. He also started to have a cough with some phlegm production. Patient started to become concerned on Thursday still having temps and diarrhea. Came into the emergency room for further evaluation and treatment. Patient also had been reporting lower chest and abdomen discomfort. Patient had a white count 12.6 creatinine elevated at 3.20 and lactic acid elevated at 6.3 up to 8.5. Patient was found to be septic received 3 L of IV fluid boluses for his hypotension. Patient continued to become more short of breath and increased respiratory rate. BiPAP was ordered. Patient did not tolerate the BiPAP. He was transferred to the ICU. He is currently on 4 mics of Levophed. And on but broad-spectrum antibiotics which include Levaquin Vanco and cefuroxime. Critical care, infectious disease,oncology and nephrology has been consulted. Nephrology has ordered dose of IV Lasix with evidence of fluid overload earlier this morning. Patient also had an elevated d-dimer. Unable to do a CAT scan due to elevated creatinine. Patient currently cannot tolerate a VQ scan. Pulmonate service evaluated patient is on IV heparin. VQ scan and venous Dopplers have been ordered. CT of chest abdomen and pelvis is unremarkable. EKG showing a normal sinus rhythm with nonspecific T-wave abnormality 09/22/2017 patient currently in ICU. He was seen by Dr. Hill antibiotics were adjusted to meropenem and vancomycin was continued. Troponins were negative 2 sets. Doppler was negative for DVT. He remains on IV steroids for his asthma exacerbation. Creatinine has come down to 1.62. Chest x-ray showing some pulmonary venous congestion with out overt failure. Patient did have a rise in his liver enzymes AST 1000 491 and ALT 1513. He is complaining of some epigastric tenderness. Denies any alcohol abuse. He is off the Levophed. Case was discussed with pulmonarypractitioner will await their further recommendations. 09/23/2017 patient currently still in ICU. States he is feeling better today. Per Nursing staff patient has been off levo for over 24 hours. AST level today 738 and ALT 1280. Still complaining of some epigastric pain, amylase and lipase labs ordered. Patient off insulin drip Lantus 40 units ordered along with sliding scale insulin. Patient denies shortness of breath or chest pain at this. Objective - Vital Signs Vital signs: Vital Signs Temp 98.4 F 09/23/17 08:00 Pulse 80 09/23/17 13:14 Resp 19 09/23/17 10:00 BP 112/70 09/23/17 10:00 Pulse Ox 97 09/23/17 13:00 Intake & Output 09/22/17 09/23/17 09/23/17 18:59 06:59 18:59 Intake Total 1016.562 591.944 780 Output Total 1155 890 550 Balance -138.438 -298.056 230 Weight 102 kg Intake: IV 940 520 420 Cefepime 2 gm In Sodium 50 Chloride 0.9% 50 ml @ 100 mls/hr IVPB Q12HR [facility] Rx #:[id number] Meropenem 1 gm In Sodium 100 100 Chloride 0.9% 100 ml @ 100 mls/hr IVPB Q12H [facility] Rx#:[id number] Sodium Chloride 0.45% 1, 400 000 ml @ 100 mls/hr IV . Q11H [facility] with Sodium Bicarb (1 Meq/ml) 100 ml Rx#:[id number] Sodium Chloride 0.9% 1, 490 420 70 000 ml @ 50 mls/hr IV . Q20H [facility] Rx#:[id number] Vancomycin 1,750 mg In 250 Sodium Chloride 0.9% 500 ml @ 167 mls/hr IVPB Q24HR@0800 [facility] Rx#: [id number] Intake, IV Titration 76.562 71.944 Amount Insulin Regular 100 unit 76.562 71.944 In Sodium Chloride 0.9% 100 ml @ Per Protocol IV .Q0M [facility] Rx#:[id number] Oral 360 Output: Urine 1155 890 550 Other: Voiding Method Indwelling Catheter Indwelling Catheter Indwelling Catheter - Exam Head normocephalic Neck supple Lungs clear to auscultation bilaterally no wheezing or crackles Heart regular rate and rhythm S1-S2, no rub or gallop Abdomen is soft nontender nondistended positive bowel sounds no hepatosplenomegaly Extremities no edema Neuro alert and orientated to 3 - Labs CBC & Chem 7: 09/23/17 04:21 09/22/17 10:50 Labs: Abnormal Lab Results - Last 24 Hours (Table) 09/21/17 09/22/17 09/22/17 Range/Units 11:52 14:21 16:48 WBC (3.8-10.6) k/uL RBC (4.30-5.90) m/uL Hgb (13.0-17.5) gm/dL Hct (39.0-53.0) % RDW (11.5-15.5) % Plt Count (150-450) k/uL Neutrophils # (Manual) (1.3-7.7) k/uL Lymphocytes # (Manual) (1.0-4.8) k/uL Nucleated RBCs (0-0) /100 WBC INR (<1.2) POC Glucose (mg/dL) 268 H 146 H (75-99) mg/dL Lipase (23-300) U/L IgG 547.0 L (700.0-1600.0) mg/dL IgM 20.4 L (40.0-280.0) mg/dL 09/22/17 09/22/17 09/22/17 Range/Units 18:16 18:58 19:47 WBC (3.8-10.6) k/uL RBC (4.30-5.90) m/uL Hgb (13.0-17.5) gm/dL Hct (39.0-53.0) % RDW (11.5-15.5) % Plt Count (150-450) k/uL Neutrophils # (Manual) (1.3-7.7) k/uL Lymphocytes # (Manual) (1.0-4.8) k/uL Nucleated RBCs (0-0) /100 WBC INR (<1.2) POC Glucose (mg/dL) 198 H 185 H 200 H (75-99) mg/dL Lipase (23-300) U/L IgG (700.0-1600.0) mg/dL IgM (40.0-280.0) mg/dL 09/22/17 09/22/17 09/22/17 Range/Units 21:21 22:01 23:05 WBC (3.8-10.6) k/uL RBC (4.30-5.90) m/uL Hgb (13.0-17.5) gm/dL Hct (39.0-53.0) % RDW (11.5-15.5) % Plt Count (150-450) k/uL Neutrophils # (Manual) (1.3-7.7) k/uL Lymphocytes # (Manual) (1.0-4.8) k/uL Nucleated RBCs (0-0) /100 WBC INR (<1.2) POC Glucose (mg/dL) 199 H 204 H 177 H (75-99) mg/dL Lipase (23-300) U/L IgG (700.0-1600.0) mg/dL IgM (40.0-280.0) mg/dL 09/23/17 09/23/17 09/23/17 Range/Units 00:07 01:03 02:08 WBC (3.8-10.6) k/uL RBC (4.30-5.90) m/uL Hgb (13.0-17.5) gm/dL Hct (39.0-53.0) % RDW (11.5-15.5) % Plt Count (150-450) k/uL Neutrophils # (Manual) (1.3-7.7) k/uL Lymphocytes # (Manual) (1.0-4.8) k/uL Nucleated RBCs (0-0) /100 WBC INR (<1.2) POC Glucose (mg/dL) 207 H 202 H 118 H (75-99) mg/dL Lipase (23-300) U/L IgG (700.0-1600.0) mg/dL IgM (40.0-280.0) mg/dL 09/23/17 09/23/17 09/23/17 Range/Units 02:58 04:04 04:21 WBC 24.7 H (3.8-10.6) k/uL RBC 3.94 L (4.30-5.90) m/uL Hgb 11.3 L (13.0-17.5) gm/dL Hct 34.6 L (39.0-53.0) % RDW 16.6 H (11.5-15.5) % Plt Count 85 L (150-450) k/uL Neutrophils # (Manual) 23.40 H (1.3-7.7) k/uL Lymphocytes # (Manual) 0.99 L (1.0-4.8) k/uL Nucleated RBCs 2 H (0-0) /100 WBC INR (<1.2) POC Glucose (mg/dL) 146 H 150 H (75-99) mg/dL Lipase (23-300) U/L IgG (700.0-1600.0) mg/dL IgM (40.0-280.0) mg/dL 09/23/17 09/23/17 09/23/17 Range/Units 04:21 04:21 05:09 WBC (3.8-10.6) k/uL RBC (4.30-5.90) m/uL Hgb (13.0-17.5) gm/dL Hct (39.0-53.0) % RDW (11.5-15.5) % Plt Count (150-450) k/uL Neutrophils # (Manual) (1.3-7.7) k/uL Lymphocytes # (Manual) (1.0-4.8) k/uL Nucleated RBCs (0-0) /100 WBC INR 1.2 H (<1.2) POC Glucose (mg/dL) 173 H (75-99) mg/dL Lipase 389 H (23-300) U/L IgG (700.0-1600.0) mg/dL IgM (40.0-280.0) mg/dL 09/23/17 09/23/17 09/23/17 Range/Units 06:20 07:03 08:03 WBC (3.8-10.6) k/uL RBC (4.30-5.90) m/uL Hgb (13.0-17.5) gm/dL Hct (39.0-53.0) % RDW (11.5-15.5) % Plt Count (150-450) k/uL Neutrophils # (Manual) (1.3-7.7) k/uL Lymphocytes # (Manual) (1.0-4.8) k/uL Nucleated RBCs (0-0) /100 WBC INR (<1.2) POC Glucose (mg/dL) 168 H 138 H 174 H (75-99) mg/dL Lipase (23-300) U/L IgG (700.0-1600.0) mg/dL IgM (40.0-280.0) mg/dL 09/23/17 09/23/17 09/23/17 Range/Units 09:09 10:15 12:17 WBC (3.8-10.6) k/uL RBC (4.30-5.90) m/uL Hgb (13.0-17.5) gm/dL Hct (39.0-53.0) % RDW (11.5-15.5) % Plt Count (150-450) k/uL Neutrophils # (Manual) (1.3-7.7) k/uL Lymphocytes # (Manual) (1.0-4.8) k/uL Nucleated RBCs (0-0) /100 WBC INR (<1.2) POC Glucose (mg/dL) 252 H 248 H 270 H (75-99) mg/dL Lipase (23-300) U/L IgG (700.0-1600.0) mg/dL IgM (40.0-280.0) mg/dL Microbiology - Last 24 Hours (Table) 09/20/17 23:26 Blood Culture - Preliminary Blood No Growth after 48 hours 09/21/17 00:32 Urine Culture - Preliminary Urine,Catheterized Assessment and Plan Assessment: 1. Acute sepsis present on admission possibly secondary to dog bite to the left hand. Infectious disease has been consulted. Blood culture negative so far. Antibiotics adjusted per infectious disease patient currently on meropenem and vancomycin 2. Shortness of breath with chest pain and Elevated d-dimer: Continue IV heparin until able to rule out PE and DVT. VQ scan and venous Dopplers ordered. Unable to perform a CTA of the chest because of elevated creatinine. Patient unable to tolerate VQ scan at this time. Troponins negative 2 venous Doppler negative for DVT 3. Acute kidney injury: Likely related to hypoperfusion due to patient's hypotension. As well as diarrhea. Creatinine 3.20 on admission. He has received IV fluids. Nephrology following closely. Creatinine has come down to 1.08 4. Hypotension patient receiving IV fluids. Patient is now off of Levophed 5. Acute asthma exacerbation patient was started on IV Solu-Medrol and bronchodilators. Pulmonary service following 6. Diarrhea . Patient had formed stool unable to complete stool study for C. diff 7. Diabetes mellitus type 2 : Patient currently on insulin drip while on IV steroids. Insulin drip discontinued. 40 units Lantus along with sliding scale ordered. 8. History of CML status post chemotherapy and a bone marrow transplant in 2006. Oncology consulted 9. History of [id number]-[id number] disease after bone marrow transplant. Patient has not been taking antirejection medication for over a year. Patient stopped taking them on his own 10. Mood disorder continue Lamictal 11. History of coronary artery disease with previous cardiac stent 12. Hyperkalemia: Resolved 13. Hypomagnesemia and patient receiving magnesium supplement 14. History of peripheral vascular disease with percutaneous superficial femoral artery arthrectomy and percutaneous transluminal balloon angioplasty of the left leg in July 2017 15. Metabolic acidosis secondary to lactic acidosis and renal failure. Neurology is placed patient on bicarb 16. Acute hypoxic respiratory initially requiring BiPAP. Currently on nasal cannula 17. Elevated LFTs: ALT 1513 AST 1491. Discontinue Lipitor and fenofibrate. Also could be shocked liver from hypotension Or possibly liver congestion. Chest x-ray is showing some pulmonary venous congestion. Discussed with pulmonary nurse practitioner. They reevaluate patient. Also some mild epigastric tenderness we'll check amylase and lipase DVT prophylaxis IV heparin and GI prophylaxis Protonix I performed an examination of the patient and discussed their management with the Nurse Practitioner. I have reviewed the Nurse Practitioner's notes and agree with the documented findings and plan of care
[2017-09-23] MEDS ORDERED: IMMUNE GLOBULIN (HUMAN-IGG) 20 GM in EMPTY BAG 1 BAG IV ONE (14:30)
[2017-09-23 14:40] LABS: ALT 1280 U/L (21-72); AST 738 U/L (17-59)
[2017-09-23 17:22] LABS: Glucose,Whole Blood 287 mg/dL (75-99)
[2017-09-23] MEDS: ACETAMINOPHEN TAB 325 MG TAB PO PRN ×2 (17:24→21:01)
[2017-09-23 20:52] LABS: Glucose,Whole Blood 300 mg/dL (75-99)
[2017-09-23] MEDS ORDERED: INSULIN DETEMIR 100 UNIT/ML 10 ML VIAL SQ SCH (21:00)
[2017-09-23] MEDS: lamoTRIgine 25 MG TAB PO SCH (21:02)
--- NOTE | 2017-09-23 22:02 | PN ---
PROGRESS NOTE Patient is seen for followup for the for followup for acute kidney injury. The patient's renal function has been improving. His creatinine is down to 1.08 from 3.2 on initial admission. Patient has had good urine output. He is maintained on IV fluids. He is currently on antibiotics as well for left hand dog bite. The liver enzymes, which were significantly elevated, are now decreasing. The patient is off of Levophed. PHYSICAL EXAMINATION: On examination today, blood pressure this morning was 124/66 and 115/69. Examination of the heart S1, S2. Examination of the lungs bilateral breath sounds are heard. Abdomen is soft, nontender. Examination of lower extremities shows trace edema bilaterally. BREAST TRIMMER exam is grossly intact. LABS SHOW: Sodium 142, potassium 4.0, chloride 108, BUN 37, serum creatinine 1.08, AST 738, ALT 1280. Amylase 75, lipase 389. ASSESSMENT: 1. Acute kidney injury secondary to hypotension, sepsis, nonoliguric currently significantly improved. The patient is maintained on IV fluids. I will decrease the rate to about 50 mL an hour. 2. Severe metabolic acidosis associated with sepsis and lactic acidosis, now improved. Patient is status post IV bicarb. 3. Hyperkalemia associated with renal failure and acidosis and use of nonsteroidal anti-inflammatory agents, now resolved. 4. Respiratory failure, off of BiPAP. 5. History of CML status post bone marrow transplant. 6. Elevated liver enzymes, most likely secondary to hypoperfusion. Liver enzymes are now decreasing. 7. Dog bite, left hand, now improved. The patient is maintained on meropenem. He has also been getting vancomycin. PLAN: DC oral sodium bicarb. Decrease IV fluids. Repeat labs in a.m. Follow up on chest x- ray. MMODL / IJN: [id number] /
--- NOTE | 2017-09-23 23:08 | P.PN ---
Subjective Progress Note Date: 09/23/17 52-year-old male with a known history of chronic myelogenous leukemia diagnosed in 2003. The patient was treated with chemotherapy by 2005 requiring allogenic stem cell transplantation. Since that time he said difficulties with [id number]-sdvd disease affecting his eyes and skin skin which has affected his quality of life. He has had plasmapheresis and ongoing follow-up with the [facility] in [place]. Apparently the patient stopped taking his suppressive medications nearly a year ago he was started taking 44 pills a day. Relates being off medications he actually felt a little better and has maintained himself off of medications, his is concerned with the patient is very self-directed. Apparently a few days ago the patient was admitted by a Josef, it is a show dog is up-to-date on all of his vaccines. He suffered a bite to his left hand. Local care was provided but despite that he's been having some increasing difficulties that included increasing fever with chills associated with nausea emesis increasing shortness of breath and feeling quite poorly overall. Consequently the patient did present to the emergency center and was admitted to the intensive care unit with evidence of sepsis and shock requiring vasopressor therapy and fluid resuscitation. With fluid resuscitation could become a bit more short of breath and did have a good fluid response to Lasix. With the rehydration he has had some electrolyte imbalance has had some muscle spasms is comfortable at the moment as far as the musculoskeletal difficulties. He does feel quite poorly overall is improved since admission possibly due to the high dose of methylprednisolone that has been started. August patient is feeling better , hypotension is resolved, respirations are improved, pain and discomfort is improved with muscle spasms. Still short of breath but improved, no hemoptysis. Pain to the left hand is improved still some swelling. 09/23/2017 patient is improved he's been transferred out of the intensive care unit. He is still having some cough and some shortness of breath but this is also improved. He has received a considerable amount of fluid resuscitation and hypotension is resolved but appears to have a bit of fluid in the bilateral bases. His IgG level is low. He'll receive intravenous immunoglobulin today. Relates the pain in his left hand is improved. But is having some discomfort so needs taking deep breaths with musculoskeletal pain Objective - Vital Signs Vital signs: Vital Signs Temp 96.3 F L 09/23/17 22:48 Pulse 84 09/23/17 22:48 Resp 18 09/23/17 22:48 BP 119/75 09/23/17 22:48 Pulse Ox 94 L 09/23/17 22:48 Intake & Output 09/23/17 09/23/17 09/24/17 06:59 18:59 06:59 Intake Total 262.845 6578 Output Total 890 950 Balance -298.056 920 Intake: IV 520 1010 Immune Globulin (Human- 200 IgG) 20 gm In Empty Bag 1 bag @ As Directed IV . Q0M [facility] Rx#:[id number] Meropenem 1 gm In Sodium 100 100 Chloride 0.9% 100 ml @ 100 mls/hr IVPB Q12H [facility] Rx#:[id number] Sodium Chloride 0.9% 1, 420 210 000 ml @ 50 mls/hr IV . Q20H [facility] Rx#:[id number] Vancomycin 1,750 mg In 500 Sodium Chloride 0.9% 500 ml @ 167 mls/hr IVPB Q24HR@0800 [facility] Rx#: [id number] Intake, IV Titration 71.944 Amount Insulin Regular 100 unit 71.944 In Sodium Chloride 0.9% 100 ml @ Per Protocol IV .Q0M [facility] Rx#:[id number] Oral 860 Output: Urine 890 950 Other: Voiding Method Indwelling Catheter Indwelling Catheter # Voids 0 # Bowel Movements 1 - Exam 52-year-old male seems to be somewhat uncomfortable HEENT: Anicteric conjunctiva irritated and dry nasal mucosa grossly intact without significant lesions, there is no thrush. Poor dentition. Place Neck: The neck is supple without significant lymphadenopathy or thyromegaly. Lungs: Symmetrical air entry is noted expiratory wheezes are scattered no amy bronchial sounds no dullness or egophony Heart: Regular rate and rhythm with an audible S1-S2, no S3 no S4. There is no significant murmur click or rub, PMI was nondisplaced. Abdomen: Positive bowel sounds soft minimal tenderness without palpable masses or organomegaly. There was no guarding or rebound. Extremities: The right upper extremity is intact without difficulty. The upper extremity as the dog bite left hand. There is some bruising around the lateral surface of the hand, which is now improved, but he has on heparin the INR has been elevated the scratch the base of the thumb is without bleeding. There is no ascending erythema and there is no lymphadenopathy epitrochlear or axillary this time. No other enlarged lymph nodes are noted is have chronic dryness to his skin Neuro: Awake alert oriented to person place and time. There are no acute new gross focal sensory motor deficits. - Labs CBC & Chem 7: 09/23/17 04:21 09/23/17 04:21 Labs: Abnormal Lab Results - Last 24 Hours (Table) 09/22/17 09/23/17 09/23/17 Range/Units 23:05 00:07 01:03 WBC (3.8-10.6) k/uL RBC (4.30-5.90) m/uL Hgb (13.0-17.5) gm/dL Hct (39.0-53.0) % RDW (11.5-15.5) % Plt Count (150-450) k/uL Neutrophils # (Manual) (1.3-7.7) k/uL Lymphocytes # (Manual) (1.0-4.8) k/uL Nucleated RBCs (0-0) /100 WBC INR (<1.2) Chloride (98-107) mmol/L BUN (9-20) mg/dL Glucose (74-99) mg/dL POC Glucose (mg/dL) 177 H 207 H 202 H (75-99) mg/dL Calcium (8.4-10.2) mg/dL Phosphorus (2.5-4.5) mg/dL Magnesium (1.6-2.3) mg/dL AST (17-59) U/L ALT (21-72) U/L Total Protein (6.3-8.2) g/dL Albumin (3.5-5.0) g/dL Lipase (23-300) U/L 09/23/17 09/23/17 09/23/17 Range/Units 02:08 02:58 04:04 WBC (3.8-10.6) k/uL RBC (4.30-5.90) m/uL Hgb (13.0-17.5) gm/dL Hct (39.0-53.0) % RDW (11.5-15.5) % Plt Count (150-450) k/uL Neutrophils # (Manual) (1.3-7.7) k/uL Lymphocytes # (Manual) (1.0-4.8) k/uL Nucleated RBCs (0-0) /100 WBC INR (<1.2) Chloride (98-107) mmol/L BUN (9-20) mg/dL Glucose (74-99) mg/dL POC Glucose (mg/dL) 118 H 146 H 150 H (75-99) mg/dL Calcium (8.4-10.2) mg/dL Phosphorus (2.5-4.5) mg/dL Magnesium (1.6-2.3) mg/dL AST (17-59) U/L ALT (21-72) U/L Total Protein (6.3-8.2) g/dL Albumin (3.5-5.0) g/dL Lipase (23-300) U/L 09/23/17 09/23/17 09/23/17 Range/Units 04:21 04:21 04:21 WBC 24.7 H (3.8-10.6) k/uL RBC 3.94 L (4.30-5.90) m/uL Hgb 11.3 L (13.0-17.5) gm/dL Hct 34.6 L (39.0-53.0) % RDW 16.6 H (11.5-15.5) % Plt Count 85 L (150-450) k/uL Neutrophils # (Manual) 23.40 H (1.3-7.7) k/uL Lymphocytes # (Manual) 0.99 L (1.0-4.8) k/uL Nucleated RBCs 2 H (0-0) /100 WBC INR 1.2 H (<1.2) Chloride 108 H (98-107) mmol/L BUN 37 H (9-20) mg/dL Glucose 135 H (74-99) mg/dL POC Glucose (mg/dL) (75-99) mg/dL Calcium 7.7 L (8.4-10.2) mg/dL Phosphorus 2.4 L (2.5-4.5) mg/dL Magnesium 2.8 H (1.6-2.3) mg/dL AST 738 H (17-59) U/L ALT 1280 H (21-72) U/L Total Protein 5.2 L (6.3-8.2) g/dL Albumin 3.0 L (3.5-5.0) g/dL Lipase (23-300) U/L 09/23/17 09/23/17 09/23/17 Range/Units 04:21 05:09 06:20 WBC (3.8-10.6) k/uL RBC (4.30-5.90) m/uL Hgb (13.0-17.5) gm/dL Hct (39.0-53.0) % RDW (11.5-15.5) % Plt Count (150-450) k/uL Neutrophils # (Manual) (1.3-7.7) k/uL Lymphocytes # (Manual) (1.0-4.8) k/uL Nucleated RBCs (0-0) /100 WBC INR (<1.2) Chloride (98-107) mmol/L BUN (9-20) mg/dL Glucose (74-99) mg/dL POC Glucose (mg/dL) 173 H 168 H (75-99) mg/dL Calcium (8.4-10.2) mg/dL Phosphorus (2.5-4.5) mg/dL Magnesium (1.6-2.3) mg/dL AST (17-59) U/L ALT (21-72) U/L Total Protein (6.3-8.2) g/dL Albumin (3.5-5.0) g/dL Lipase 389 H (23-300) U/L 09/23/17 09/23/17 09/23/17 Range/Units 07:03 08:03 09:09 WBC (3.8-10.6) k/uL RBC (4.30-5.90) m/uL Hgb (13.0-17.5) gm/dL Hct (39.0-53.0) % RDW (11.5-15.5) % Plt Count (150-450) k/uL Neutrophils # (Manual) (1.3-7.7) k/uL Lymphocytes # (Manual) (1.0-4.8) k/uL Nucleated RBCs (0-0) /100 WBC INR (<1.2) Chloride (98-107) mmol/L BUN (9-20) mg/dL Glucose (74-99) mg/dL POC Glucose (mg/dL) 138 H 174 H 252 H (75-99) mg/dL Calcium (8.4-10.2) mg/dL Phosphorus (2.5-4.5) mg/dL Magnesium (1.6-2.3) mg/dL AST (17-59) U/L ALT (21-72) U/L Total Protein (6.3-8.2) g/dL Albumin (3.5-5.0) g/dL Lipase (23-300) U/L 09/23/17 09/23/17 09/23/17 Range/Units 10:15 12:17 17:10 WBC (3.8-10.6) k/uL RBC (4.30-5.90) m/uL Hgb (13.0-17.5) gm/dL Hct (39.0-53.0) % RDW (11.5-15.5) % Plt Count (150-450) k/uL Neutrophils # (Manual) (1.3-7.7) k/uL Lymphocytes # (Manual) (1.0-4.8) k/uL Nucleated RBCs (0-0) /100 WBC INR (<1.2) Chloride (98-107) mmol/L BUN (9-20) mg/dL Glucose (74-99) mg/dL POC Glucose (mg/dL) 248 H 270 H 287 H (75-99) mg/dL Calcium (8.4-10.2) mg/dL Phosphorus (2.5-4.5) mg/dL Magnesium (1.6-2.3) mg/dL AST (17-59) U/L ALT (21-72) U/L Total Protein (6.3-8.2) g/dL Albumin (3.5-5.0) g/dL Lipase (23-300) U/L 09/23/17 Range/Units 20:51 WBC (3.8-10.6) k/uL RBC (4.30-5.90) m/uL Hgb (13.0-17.5) gm/dL Hct (39.0-53.0) % RDW (11.5-15.5) % Plt Count (150-450) k/uL Neutrophils # (Manual) (1.3-7.7) k/uL Lymphocytes # (Manual) (1.0-4.8) k/uL Nucleated RBCs (0-0) /100 WBC INR (<1.2) Chloride (98-107) mmol/L BUN (9-20) mg/dL Glucose (74-99) mg/dL POC Glucose (mg/dL) 300 H (75-99) mg/dL Calcium (8.4-10.2) mg/dL Phosphorus (2.5-4.5) mg/dL Magnesium (1.6-2.3) mg/dL AST (17-59) U/L ALT (21-72) U/L Total Protein (6.3-8.2) g/dL Albumin (3.5-5.0) g/dL Lipase (23-300) U/L Microbiology - Last 24 Hours (Table) 09/21/17 00:32 Urine Culture - Final Urine,Catheterized 09/20/17 23:26 Blood Culture - Preliminary Blood No Growth after 48 hours Laboratory Results WBC 24.7 k/uL (3.8-10.6) H 09/23/17 04:21 RBC 3.94 m/uL (4.30-5.90) L 09/23/17 04:21 Hgb 11.3 gm/dL (13.0-17.5) L 09/23/17 04:21 Hct 34.6 % (39.0-53.0) L 09/23/17 04:21 MCV 87.8 fL (80.0-100.0) 09/23/17 04:21 MCH 28.6 pg (25.0-35.0) 09/23/17 04:21 MCHC 32.6 g/dL (31.0-37.0) 09/23/17 04:21 RDW 16.6 % (11.5-15.5) H 09/23/17 04:21 Plt Count 85 k/uL (150-450) L 09/23/17 04:21 Neutrophils % (Manual) 91 % 09/23/17 04:21 Band Neutrophils % 4 % 09/23/17 04:21 Lymphocytes % (Manual) 4 % 09/23/17 04:21 Monocytes % (Manual) 1 % 09/23/17 04:21 Myelocytes % 1 % 09/21/17 04:40 Neutrophils # (Manual) 23.40 k/uL (1.3-7.7) H 09/23/17 04:21 Lymphocytes # (Manual) 0.99 k/uL (1.0-4.8) L 09/23/17 04:21 Monocytes # (Manual) 0.25 k/uL (0-1.0) 09/23/17 04:21 Myelocytes # (Manual) 0.13 k/uL (0) H 09/21/17 04:40 Nucleated RBCs 2 /100 WBC (0-0) H 09/23/17 04:21 Manual Slide Review Performed 09/22/17 04:28 Toxic Vacuolation Present 09/21/17 04:40 Large Platelets Present 09/22/17 04:28 Hypochromasia Slight 09/23/17 04:21 Poikilocytosis Slight 09/23/17 04:21 Anisocytosis Slight 09/23/17 04:21 Spherocytes Present 09/23/17 04:21 Target Cells Present 09/23/17 04:21 Ovalocytes Present 09/23/17 04:21 [place] Bodies Present 09/23/17 04:21 Fragmented RBCs Present 09/23/17 04:21 PT 11.6 sec (9.0-12.0) 09/23/17 04:21 INR 1.2 (<1.2) H 09/23/17 04:21 APTT 24.6 sec (22.0-30.0) 09/23/17 04:21 D-Dimer 12.09 mg/L FEU (<0.60) H 09/20/17 23:26 Sodium 142 mmol/L (137-145) 09/23/17 04:21 Potassium 4.0 mmol/L (3.5-5.1) 09/23/17 04:21 Chloride 108 mmol/L (98-107) H 09/23/17 04:21 Carbon Dioxide 23 mmol/L (22-30) 09/23/17 04:21 Anion Gap 11 mmol/L 09/23/17 04:21 BUN 37 mg/dL (9-20) H 09/23/17 04:21 Creatinine 1.08 mg/dL (0.66-1.25) 09/23/17 04:21 Est GFR (CKD-EPI)AfAm >90 (>60 ml/min/1.73 sqM) 09/23/17 04:21 Est GFR (CKD-EPI)NonAf 78 (>60 ml/min/1.73 sqM) 09/23/17 04:21 Glucose 135 mg/dL (74-99) H 09/23/17 04:21 POC Glucose (mg/dL) 300 mg/dL (75-99) H 09/23/17 20:51 POC Glu [employer] MAUREEN Marie Domínguez 09/23/17 20:[address] Glu mg/dL 183 09/21/17 11:52 Hemoglobin A1c 8.0 % (4.0-6.0) H 09/21/17 11:52 Lactic Ac Sepsis Rflx Y 09/22/17 04:56 Plasma Lactic Acid Alexei 2.8 mmol/L (0.7-2.0) H* 09/22/17 08:01 Calcium 7.7 mg/dL (8.4-10.2) L 09/23/17 04:21 Phosphorus 2.4 mg/dL (2.5-4.5) L 09/23/17 04:21 Magnesium 2.8 mg/dL (1.6-2.3) H 09/23/17 04:21 Total Bilirubin 1.0 mg/dL (0.2-1.3) 09/23/17 04:21 Conjugated Bilirubin 0.1 mg/dL (0.0-0.3) 09/20/17 23:26 Unconjugated Bilirubin 0.3 mg/dL (0.0-1.1) 09/20/17 23:26 Delta Bilirubin 0.9 mg/dL (0.0-0.2) H 09/20/17 23:26 AST 738 U/L (17-59) H 09/23/17 04:21 ALT 1280 U/L (21-72) H 09/23/17 04:21 Alkaline Phosphatase 110 U/L (38-126) 09/23/17 04:21 Troponin I 0.025 ng/mL (0.000-0.034) 09/21/17 04:40 NT-Pro-B Natriuret Pep 8370 pg/mL 09/20/17 23:26 Total Protein 5.2 g/dL (6.3-8.2) L 09/23/17 04:21 Albumin 3.0 g/dL (3.5-5.0) L 09/23/17 04:21 Amylase 75 U/L (30-110) 09/23/17 04:21 Lipase 389 U/L (23-300) H 09/23/17 04:21 Urine Color Yellow 09/21/17 00:32 Urine Appearance Cloudy (Clear) 09/21/17 00:32 Urine pH 5.5 (5.0-8.0) 09/21/17 00:32 Ur Specific [place] 1.017 (1.001-1.035) 09/21/17 00:32 Urine Protein 1+ (Negative) H 09/21/17 00:32 Urine Glucose (UA) 2+ (Negative) H 09/21/17 00:32 Urine Ketones Trace (Negative) H 09/21/17 00:32 Urine Blood Negative (Negative) 09/21/17 00:32 Urine Nitrite Negative (Negative) 09/21/17 00:32 Urine Bilirubin Negative (Negative) 09/21/17 00:32 Urine Urobilinogen <2.0 mg/dL (<2.0) 09/21/17 00:32 Ur Leukocyte Esterase Negative (Negative) 09/21/17 00:32 Urine RBC 1 /hpf (0-5) 09/21/17 00:32 Urine WBC 6 /hpf (0-5) H 09/21/17 00:32 Hyaline Casts 8 /lpf (0-2) H 09/21/17 00:32 Urine Mucus Occasional /hpf (None) H 09/21/17 00:32 Acetone, Qual Negative (Negative) 09/20/17 23:26 IgG 547.0 mg/dL (700.0-1600.0) L 09/21/17 11:52 IgA 159.0 mg/dL (60.0-350.0) 09/21/17 11:52 IgM 20.4 mg/dL (40.0-280.0) L 09/21/17 11:52 Influenza Type A RNA Not Detected (Not Detectd) 09/20/17 23:40 Influenza Type B (PCR) Not Detected (Not Detectd) 09/20/17 23:40 Blood Type AB Positive 09/21/17 00:15 Blood Type Recheck No 09/21/17 00:15 Antibody Screen NEGATIVE 09/21/17 00:15 Spec Expiration Date 09/24/2017 - 5 09/21/17 00:15 Microbiology 09/21/17 00:32 Urine,Catheterized Urine Culture - Final 09/20/17 23:26 Blood Blood Culture - Preliminary No Growth after 48 hours Assessment and Plan (1) Dog bite Narrative/Plan: 52-year-old male presents to the emergency center several days after a dog bite that occurred to his left hand. The dog is a show dog and is well vaccinated. By circumstances it appears that the bite was a provoked event. The patient himself has had severe amounts of vaccine over time and believes he is up-to-date with his tetanus vaccine. 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 Antibiotic therapy is being altered to meropenem to ensure coverage as well as continue vancomycin for now until there is further data. Regretfully this pathogen is quite slow-growing immediately difficult to isolate in the near future. For now continue the supportive care and aggressive antibiotic therapy. The patient did have significant respiratory distress earlier was treated with BiPAP and is now on nasal cannula oxygen, may have an improvement from the diuresis. He is receiving intravenous heparin and this is being monitored closely from the pulmonary critical care service. The patient continues to have an elevated lactic acid, it is disproportionate and maybe markedly elevated due to his acute renal failure and may also be impacted by his underlying tyylj-cjmzwk-usxq disease. If he has further fevers blood culture should be obtained. 09/22/2017 reveals the patient to be somewhat improved from 24 hours ago. He has less short of breath but continues to have some shortness of breath greater than his baseline. He is having no evidence of bleeding, questionable pulmonary critical care to consider discontinuation of the heparin given his significant shock liver that is not been noted. The patient the likelihood of a pulmonary embolus. Concerns to capnocytophagia infection, continue meropenem and vancomycin for now while cultures are prior cyst laboratory may need to hold onto cultures for extended period of time for final identification. Fortunately he seems to be doing somewhat better which may partially due to the large doses of steroids that is receiving for his pulmonary status. The IgG level is somewhat low and this will be discussed with the oncologist as to supplementation given his current significant level of illness. 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 09/23/2017 reveals the patient to have further improvement. His shortness of breath continues to improve. Concerns to the capnocytophagia infection and cultures from process but may take a while for any data. Fortunately he has had a good clinical response. Chest x-ray shows evidence of some minimal effusion no amy infiltrates. Pulmonary critical care is following. History dosing has been reduced is likely for the recent bump of his white blood cell count to 23. IgG level was low and receiving intravenous immunoglobulin today which may help his overall status. He started to recover from the shock liver event. In his acute renal failure is also improved. He is complaining of some headache, may do well with some Fioricet. 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
[2017-09-24] MEDS: SALT AND SODA MOUTHWASH 1,000 ML PO SCH ×5 (01:28→23:20)
[2017-09-24] MEDS: IPRATROPIUM-ALBUTEROL 3 ML NEB INHALATION SCH ×6 (03:36→23:48)
[2017-09-24] MEDS: methylPREDNISolone SOD SUCCI 125 MG/2 ML VIAL IV SCH ×4 (06:04→23:19)
[2017-09-24] MEDS ORDERED: VANCOMYCIN TROUGH DUE 1 EACH MISC MISCELLANE ONE (07:00)
[2017-09-24 07:11] LABS: Glucose,Whole Blood 257 mg/dL (75-99)
[2017-09-24 07:51] LABS: INR 1.3 (<1.2); Prothrombin Time 12.5 sec (9.0-12.0)
[2017-09-24 08:08] LABS: ALT 855 U/L (21-72); AST 236 U/L (17-59); Albumin 2.9 g/dL (3.5-5.0); Alkaline Phosphatase 122 U/L (38-126); Anion Gap 11 mmol/L; Blood Urea Nitrogen 31 mg/dL (9-20); Calcium 7.8 mg/dL (8.4-10.2); Carbon Dioxide 25 mmol/L (22-30); Chloride 106 mmol/L (98-107); Glucose 257 mg/dL (74-99); Magnesium 2.5 mg/dL (1.6-2.3); Phosphorus 2.2 mg/dL (2.5-4.5); Potassium 4.4 mmol/L (3.5-5.1); Sodium 142 mmol/L (137-145); Total Bilirubin 1.1 mg/dL (0.2-1.3); Total Protein 5.5 g/dL (6.3-8.2)
[2017-09-24 08:09] LABS: Anisocytosis Slight; HCT 32.3 % (39.0-53.0); HGB 10.7 gm/dL (13.0-17.5); MCH 28.8 pg (25.0-35.0); MCHC 33.2 g/dL (31.0-37.0); MCV 86.8 fL (80.0-100.0); Mean Platelet Volume 9.8; Poikilocytosis Slight; RBC 3.72 m/uL (4.30-5.90); RDW 17.2 % (11.5-15.5); WBC 23.4 k/uL (3.8-10.6)
[2017-09-24 08:13] LABS: Platelet Count 81 k/uL (150-450)
[2017-09-24] MEDS: VANCOMYCIN 1,750 MG in SODIUM CHLORIDE 0.9% 500 ML IVPB SCH ×2 (08:16→22:07)
[2017-09-24] MEDS: ACETAMINOPHEN TAB 325 MG TAB PO PRN ×2 (08:16→15:06)
[2017-09-24] MEDS: MEROPENEM 1 GM in SODIUM CHLORIDE 0.9% 100 ML IVPB SCH ×2 (08:17→21:22)
[2017-09-24] MEDS: CLOPIDOGREL 75 MG TAB PO SCH (08:17)
[2017-09-24] MEDS: ENOXAPARIN 30 MG/0.3 ML SYRINGE SQ SCH (08:17)
[2017-09-24] MEDS: PANTOPRAZOLE 40 MG TABLET PO SCH (08:17)
[2017-09-24] MEDS: INSULIN ASPART 100 UNIT/ML 1 ML 10 ML VIAL SQ SCH ×4 (08:17→21:23)
[2017-09-24 08:41] LABS: Lymphocytes # (M) 2.34 k/uL (1.0-4.8); Monocytes # (M) 0.47 k/uL (0-1.0); Neutrophils # (M) 20.59 k/uL (1.3-7.7); Neutrophils % (M) 88 %; Nucleated Red Blood Cells 0 /100 WBC (0-0); Total Cells Counted 100
[2017-09-24] MEDS ORDERED: FUROSEMIDE 10 MG/ML 4 ML VIAL IV SCH (10:00)
--- NOTE | 2017-09-24 11:21 | P.PN ---
Subjective Progress Note Date: 09/24/17 this is a 52-year-old male, patient of Dr. Sweeney. He has a known past medical history of CML with a bone marrow transplant in 2006 and previous chemo treatment. He has been off of his antirejection medications for about a year. Patient reports that he did not want to take 50 pounds. He also has a known history of asthma, coronary disease with stent, hypertension, diabetes mellitus , hyperlipidemia, obstructive sleep apnea and peripheral vascular disease. Patient reports last about 4 days ago he received a dog bite to the left hand. The dog's family dog and up-to-date on immunizations. He reports that he had some swelling in the hand and redness around the puncture sites. No pus drainage. He reports that it seemed to be healing. Thursday patient started to not feel well. He was feverish with a temp of 102. Having chills and sweats. Also started to have some nausea and diarrhea. Decrease in appetite. He also started to have a cough with some phlegm production. Patient started to become concerned on Thursday still having temps and diarrhea. Came into the emergency room for further evaluation and treatment. Patient also had been reporting lower chest and abdomen discomfort. Patient had a white count 12.6 creatinine elevated at 3.20 and lactic acid elevated at 6.3 up to 8.5. Patient was found to be septic received 3 L of IV fluid boluses for his hypotension. Patient continued to become more short of breath and increased respiratory rate. BiPAP was ordered. Patient did not tolerate the BiPAP. He was transferred to the ICU. He is currently on 4 mics of Levophed. And on but broad-spectrum antibiotics which include Levaquin Vanco and cefuroxime. Critical care, infectious disease,oncology and nephrology has been consulted. Nephrology has ordered dose of IV Lasix with evidence of fluid overload earlier this morning. Patient also had an elevated d-dimer. Unable to do a CAT scan due to elevated creatinine. Patient currently cannot tolerate a VQ scan. Pulmonate service evaluated patient is on IV heparin. VQ scan and venous Dopplers have been ordered. CT of chest abdomen and pelvis is unremarkable. EKG showing a normal sinus rhythm with nonspecific T-wave abnormality 09/22/2017 patient currently in ICU. He was seen by Dr. Hill antibiotics were adjusted to meropenem and vancomycin was continued. Troponins were negative 2 sets. Doppler was negative for DVT. He remains on IV steroids for his asthma exacerbation. Creatinine has come down to 1.62. Chest x-ray showing some pulmonary venous congestion with out overt failure. Patient did have a rise in his liver enzymes AST 1000 491 and ALT 1513. He is complaining of some epigastric tenderness. Denies any alcohol abuse. He is off the Levophed. Case was discussed with pulmonarypractitioner will await their further recommendations. 09/24/2017 patient was transferred out of the ICU yesterday. His IgG levels were low and required IVIG.. Patient is more edematous throughout his body today. Having some shortness of breath but not requiring oxygen. He also is wheezy. White count has come down from 24.7 to 23.4. Liver enzymes are also trending down. Patient remains on IV antibiotics. Pending and Vanco. Nephrology has started patient on IV Lasix for his fluid overload. Patient denies any chest pain. Denies any nausea or vomiting. Reports having bowel movements. Denies any difficulty with urinating. Objective - Vital Signs Vital signs: Vital Signs Temp 96.3 F L 09/24/17 06:55 Pulse 75 09/24/17 11:01 Resp 16 09/24/17 08:10 BP 121/69 09/24/17 06:55 Pulse Ox 95 09/24/17 06:55 Intake & Output 09/23/17 09/24/17 09/24/17 18:59 06:59 18:59 Intake Total 1870 Output Total 950 Balance 920 Intake: IV 1010 Immune Globulin (Human- 200 IgG) 20 gm In Empty Bag 1 bag @ As Directed IV . Q0M ONE Rx#:[id number] Meropenem 1 gm In Sodium 100 Chloride 0.9% 100 ml @ 100 mls/hr IVPB Q12H [facility] Rx#:[id number] Sodium Chloride 0.9% 1, 210 000 ml @ 50 mls/hr IV . Q20H [facility] Rx#:[id number] Vancomycin 1,750 mg In 500 Sodium Chloride 0.9% 500 ml @ 167 mls/hr IVPB Q24HR@0800 [facility] Rx#: [id number] Oral 860 Output: Urine 950 Other: Voiding Method Indwelling Catheter # Voids 0 3 # Bowel Movements 1 - Exam Head normocephalic Neck supple Lungs crackles at the bases bilaterally Heart regular rate and rhythm S1-S2, no rub or gallop Abdomen is nontender but distended positive bowel sounds Extremities edema of bilateral lower and upper extremities Neuro alert and orientated to 3 - Labs CBC & Chem 7: 09/24/17 06:57 09/24/17 06:57 Labs: Abnormal Lab Results - Last 24 Hours (Table) 09/23/17 09/23/17 09/23/17 Range/Units 04:21 04:21 04:21 WBC 24.7 H (3.8-10.6) k/uL RBC 3.94 L (4.30-5.90) m/uL Hgb 11.3 L (13.0-17.5) gm/dL Hct 34.6 L (39.0-53.0) % RDW 16.6 H (11.5-15.5) % Plt Count 85 L (150-450) k/uL Neutrophils # (Manual) 23.40 H (1.3-7.7) k/uL Lymphocytes # (Manual) 0.99 L (1.0-4.8) k/uL Nucleated RBCs 2 H (0-0) /100 WBC PT (9.0-12.0) sec INR 1.2 H (<1.2) Chloride 108 H (98-107) mmol/L BUN 37 H (9-20) mg/dL Glucose 135 H (74-99) mg/dL POC Glucose (mg/dL) (75-99) mg/dL Calcium 7.7 L (8.4-10.2) mg/dL Phosphorus 2.4 L (2.5-4.5) mg/dL Magnesium 2.8 H (1.6-2.3) mg/dL AST 738 H (17-59) U/L ALT 1280 H (21-72) U/L Total Protein 5.2 L (6.3-8.2) g/dL Albumin 3.0 L (3.5-5.0) g/dL Lipase (23-300) U/L 09/23/17 09/23/17 09/23/17 Range/Units 04:21 12:17 17:10 WBC (3.8-10.6) k/uL RBC (4.30-5.90) m/uL Hgb (13.0-17.5) gm/dL Hct (39.0-53.0) % RDW (11.5-15.5) % Plt Count (150-450) k/uL Neutrophils # (Manual) (1.3-7.7) k/uL Lymphocytes # (Manual) (1.0-4.8) k/uL Nucleated RBCs (0-0) /100 WBC PT (9.0-12.0) sec INR (<1.2) Chloride (98-107) mmol/L BUN (9-20) mg/dL Glucose (74-99) mg/dL POC Glucose (mg/dL) 270 H 287 H (75-99) mg/dL Calcium (8.4-10.2) mg/dL Phosphorus (2.5-4.5) mg/dL Magnesium (1.6-2.3) mg/dL AST (17-59) U/L ALT (21-72) U/L Total Protein (6.3-8.2) g/dL Albumin (3.5-5.0) g/dL Lipase 389 H (23-300) U/L 09/23/17 09/24/17 09/24/17 Range/Units 20:51 06:57 06:57 WBC 23.4 H (3.8-10.6) k/uL RBC 3.72 L (4.30-5.90) m/uL Hgb 10.7 L (13.0-17.5) gm/dL Hct 32.3 L (39.0-53.0) % RDW 17.2 H (11.5-15.5) % Plt Count 81 L (150-450) k/uL Neutrophils # (Manual) 20.59 H (1.3-7.7) k/uL Lymphocytes # (Manual) (1.0-4.8) k/uL Nucleated RBCs (0-0) /100 WBC PT 12.5 H (9.0-12.0) sec INR 1.3 H (<1.2) Chloride (98-107) mmol/L BUN (9-20) mg/dL Glucose (74-99) mg/dL POC Glucose (mg/dL) 300 H (75-99) mg/dL Calcium (8.4-10.2) mg/dL Phosphorus (2.5-4.5) mg/dL Magnesium (1.6-2.3) mg/dL AST (17-59) U/L ALT (21-72) U/L Total Protein (6.3-8.2) g/dL Albumin (3.5-5.0) g/dL Lipase (23-300) U/L 09/24/17 09/24/17 Range/Units 06:57 07:04 WBC (3.8-10.6) k/uL RBC (4.30-5.90) m/uL Hgb (13.0-17.5) gm/dL Hct (39.0-53.0) % RDW (11.5-15.5) % Plt Count (150-450) k/uL Neutrophils # (Manual) (1.3-7.7) k/uL Lymphocytes # (Manual) (1.0-4.8) k/uL Nucleated RBCs (0-0) /100 WBC PT (9.0-12.0) sec INR (<1.2) Chloride (98-107) mmol/L BUN 31 H (9-20) mg/dL Glucose 257 H (74-99) mg/dL POC Glucose (mg/dL) 257 H (75-99) mg/dL Calcium 7.8 L (8.4-10.2) mg/dL Phosphorus 2.2 L (2.5-4.5) mg/dL Magnesium 2.5 H (1.6-2.3) mg/dL AST 236 H (17-59) U/L ALT 855 H (21-72) U/L Total Protein 5.5 L (6.3-8.2) g/dL Albumin 2.9 L (3.5-5.0) g/dL Lipase (23-300) U/L Microbiology - Last 24 Hours (Table) 09/20/17 23:26 Blood Culture - Preliminary Blood No Growth after 72 hours 09/21/17 00:32 Urine Culture - Final Urine,Catheterized Assessment and Plan Assessment: 1. Acute sepsis present on admission possibly secondary to dog bite to the left hand. Infectious disease has been consulted. Blood culture negative so far. Antibiotics adjusted per infectious disease patient currently on meropenem and vancomycin 2. Shortness of breath with chest pain and Elevated d-dimer: Unable to perform a CTA of the chest because of elevated creatinine. Patient unable to tolerate VQ scan at this time. Troponins negative 2 venous Doppler negative for DVT. Patient followed by pulmonary service. They started patient on Lovenox 30 mg daily 3. Acute kidney injury: Likely related to hypoperfusion due to patient's hypotension. As well as diarrhea. Creatinine 3.20 on admission. He has received IV fluids. Nephrology following closely. Creatinine has normalized 4. Hypotension patient receiving IV fluids. Patient is now off of Levophed 5. Acute asthma exacerbation patient was started on IV Solu-Medrol and bronchodilators. Pulmonary service following 6. Diarrhea . Patient had formed stool unable to complete stool study for C. diff 7. Diabetes mellitus type 2 : hyperglycemia related to the IV steroids. Patient currently on the Levemir and sliding scale. Continue to monitor 8. History of ilupm-jukcdd-[id number] disease after bone marrow transplant. Patient has not been taking antirejection medication for over a year. Patient stopped taking them on his own. 9. History of CML status post chemotherapy and a bone marrow transplant in 2006. Oncology consulted 10. Mood disorder continue Lamictal 11. History of coronary artery disease with previous cardiac stent 12. Hyperkalemia: Resolved 13. Hypomagnesemia resolved 14. History of peripheral vascular disease with percutaneous superficial femoral artery arthrectomy and percutaneous transluminal balloon angioplasty of the left leg in July 2017 15. Metabolic acidosis secondary to lactic acidosis and renal failure. Neurology is placed patient on bicarb 16. Acute hypoxic respiratory initially requiring BiPAP. Currently on nasal cannula 17. Shocked liver: LFTs trending down . Lipitor and fenofibrate have been discontinued . 18. Thrombocytopenia: Continue to monitor 19. Low IgG level oncology has ordered IVIG 20. Fluid overload: Nephrology is ordered Lasix 40 mg IV every 12 hours 21. Moderate protein calorie malnutrition: At [facility] DVT prophylaxis lovenox and GI prophylaxis Protonix Consult physical therapy I performed an examination of the patient and discussed their management with the physician Maintenance Service Supervisor. I have reviewed the Physician Maintenance Service Supervisor's notes and agree with the documented findings and plan of care
[2017-09-24 11:51] LABS: Glucose,Whole Blood 313 mg/dL (75-99)
--- NOTE | 2017-09-24 12:19 | P.PN ---
Subjective Progress Note Date: 09/24/17 Principal diagnosis: Acute septic shock and sepsis This is a 52-year-old white male with history of CML and bone marrow transplant in 2006, patient has been on antirejection therapy for quite some time, a year ago stopped taking his anti rejection therapy on his own. Patient is also known to have history of diabetes, hypertension, coronary artery disease and previous stent placement, history of bronchial asthma and obstructive sleep apnea as well as peripheral vessel occlusive disease. Last , which is 4 days ago, patient was bit at his left hand by a showed dog who is supposedly immunized fully. Patient did not seek any medical attention, he just cleaned his wound and placed topical antibiotics on the site of the bite. Patient developed some swelling and redness around the puncture site, there was no evidence of any purulent drainage, and he was happy that the area seems to be healing on its own. Last night, the patient developed fever with a temp as high as 102, shortness of breath, wheezing, diarrhea, nonbloody, some vague abdominal discomfort, episodes of nausea but no vomiting, and significant lower chest and upper abdominal pain. Upon presentation to the ER, his lactic acid was elevated, patient was hypotensive requiring fluid boluses, and he also required levo fed, presently on for mics of levo fed. Patient was admitted with the impression of septic shock and sepsis. Broad-spectrum antibiotics were initiated, presently on vancomycin and cefepime. Patient is also noted to have acute kidney injury. For some reason a VQ scan was ordered, but the patient is presently on heparin, and the clinical history does not suggestive of pulmonary embolism. His shortness of breath is easily explained by his sepsis and his wheezing noted on physical examination. CT of the abdomen without contrast was noted to be unremarkable. Lasix was given earlier since the patient received significant amount of fluid boluses earlier, and his urine output was marginal. During my evaluation, patient was noted to be slightly dyspneic, anxious, and on for mics of levo fed for adequate mean arterial pressure of 70. Patient denies any chest pain, he does have fever and chills, generalized aches, no dysuria, no frequency, no urgency. He does have intermittent episodes of dry hacking cough and wheezing. Chest x-ray on admission and chest x-ray this morning is basically normal. Patient was reevaluated today on 09/22/2017, off pressors, on nasal cannula, in no distress, significant improvement noted in the last 24 hours, his lactic acid today is 2.8. Patient is feeling better, breathing easier, urine output is excellent, continues to have leukocytosis with WBC count of 15.8, PTT is therapeutic at 53.3, electrolytes are significantly improved renal profile is significantly improved with a BUN of 38 creatinine of 1.62, however liver profile seems to be worsening, elevated transaminases were noted. Blood cultures remain negative. Patient was seen by Dr. Hill yesterday, and he was placed on Merrem. Replacing cefepime. Patient remains on vancomycin. Dr. Hill seems to be concerned about the possibility of Capnocytophagia canimorsus which is a very fastidious organism, and will take a long time to grow and cultures. Clinically the patient is better except for the elevated liver enzymes. His breathing is significantly improved. Patient remains on steroids, he is also on heparin, I will likely discontinue heparin if we get to the point where a CT angiogram of the chest can be done once his renal profile improves, my index of suspicion for pulmonary embolism is rather low, venous Doppler was negative, patient did have elevated d-dimer on admission. And the presentation is mostly a presentation of sepsis rather than thromboembolic disease. Chest x-ray this morning showed mild pulmonary venous congestion without overt failure. Urine output is excellent, patient is putting out about 100 mL per hour. He is hemodynamically stable, and norepinephrine was discontinued at 1 PM yesterday. Patient was seen today again on 09/23/2017, patient is doing relatively well, asymptomatic except for some vague abdominal discomfort, denies any cough wheezing or shortness of breath, afebrile, hemodynamically stable. Patient is off norepinephrine, and has been off norepinephrine for the last 2 days. His CBC however is showing significant worsening, WBC count is in the 24,000 range, abnormal differential noted, and abnormal peripheral smear noted. His renal functioning has improved significantly, started out with a creatinine of 3.20, however his creatinine today is 1.1. Urine output is excellent. Liver enzymes remain elevated. Cultures including blood cultures are negative so far. On 09/16/2017 patient seen in follow-up on medical surgical floor. He is a bit more short of breath today, there is some scattered wheezes noted bilaterally, lung sounds are positive for coarse crackles, at the bases. Patient was given some IV Lasix per nephrology. He he has bilateral upper and lower extremity nonpitting edema, and some edema in his abdomen. Abdomen is distended but nontender. Patient states he could not get to sleep, he could not get comfortable last night, he thinks may be related to increased shortness of breath related to his abdominal distention, and fluid overload. denies any chest pain, room air pulse ox is 95%, he is hemodynamically stable, he is afebrile, microlobiology results remain negative today, patient has been given some IVIG yesterday per hematology service. Today's blood work shows a WBC of 23.4, hemoglobin of 10.7, platelet count of 81, electrolytes are within normal limits, B1 is 31, creatinine 0.91, his liver enzymes are improving, his AST is down to 236, AST is down to 855, alkaline phosphatase is 122. And patient is starting to diurese and response to IV Lasix. Objective - Vital Signs Vital signs: Vital Signs Temp 96.3 F L 09/24/17 06:55 Pulse 75 09/24/17 11:01 Resp 16 09/24/17 08:10 BP 121/69 09/24/17 06:55 Pulse Ox 95 09/24/17 06:55 Intake & Output 09/23/17 09/24/17 09/24/17 18:59 06:59 18:59 Intake Total 1870 Output Total 950 Balance 920 Intake: IV 1010 Immune Globulin (Human- 200 IgG) 20 gm In Empty Bag 1 bag @ As Directed IV . Q0M ONE Rx#:[id number] Meropenem 1 gm In Sodium 100 Chloride 0.9% 100 ml @ 100 mls/hr [facility] Rx#:[id number] Sodium Chloride 0.9% 1, 210 000 ml @ 50 mls/hr IV . Q20H [facility] Rx#:[id number] Vancomycin 1,750 mg In 500 Sodium Chloride 0.9% 500 ml @ 167 mls/hr IVPB Q24HR@0800 [facility] Rx#: [id number] Oral 860 Output: Urine 950 Other: Voiding Method Indwelling Catheter # Voids 0 3 # Bowel Movements 1 - Exam Physical Exam: Revealed a 52-year-old white male, in no form of respiratory distress, patient is presently on nasal cannula at 3 L/m. Head: Atraumatic, normocephalic. HEENT:[Neck is supple.] [No neck masses.] [No thyromegaly.] [No JVD.] Dry mucous membranes, PERRLA, EOMI. Chest: [Diminished breath sounds bilaterally, with coarse bibasilar crackles, and scattered wheezes Cardiac Exam: [Normal S1 and S2, no S3 gallop, no murmur.] Abdomen: [Soft, nontender, no megaly, no rebound, no guarding, normal bowel sounds.] Extremities: [No clubbing, no cyanosis. Generalized edema, and bilateral upper and lower extremities, as well as abdominal wall] Neurological Exam: [No focal neurologic deficit.] Lymphatics: No lymphadenopathy. Psychiatric: Normal mood affect and mental status examination. Skin: Left hand small laceration is noted between the thumb and first finger with some scabbing, no fluctuance, no redness, no pus was noted, puncture garza noted on the lateral aspect of the left hand posteriorly. - Labs CBC & Chem 7: 09/24/17 06:57 09/24/17 06:57 Labs: Abnormal Lab Results - Last 24 Hours (Table) 09/23/17 09/23/17 09/23/17 Range/Units 04:21 04:21 12:17 WBC 24.7 H (3.8-10.6) k/uL RBC 3.94 L (4.30-5.90) m/uL Hgb 11.3 L (13.0-17.5) gm/dL Hct 34.6 L (39.0-53.0) % RDW 16.6 H (11.5-15.5) % Plt Count 85 L (150-450) k/uL Neutrophils # (Manual) 23.40 H (1.3-7.7) k/uL Lymphocytes # (Manual) 0.99 L (1.0-4.8) k/uL Nucleated RBCs 2 H (0-0) /100 WBC PT (9.0-12.0) sec INR (<1.2) Chloride 108 H (98-107) mmol/L BUN 37 H (9-20) mg/dL Glucose 135 H (74-99) mg/dL POC Glucose (mg/dL) 270 H (75-99) mg/dL Calcium 7.7 L (8.4-10.2) mg/dL Phosphorus 2.4 L (2.5-4.5) mg/dL Magnesium 2.8 H (1.6-2.3) mg/dL AST 738 H (17-59) U/L ALT 1280 H (21-72) U/L Total Protein 5.2 L (6.3-8.2) g/dL Albumin 3.0 L (3.5-5.0) g/dL 09/23/17 09/23/17 09/24/17 Range/Units 17:10 20:51 06:57 WBC 23.4 H (3.8-10.6) k/uL RBC 3.72 L (4.30-5.90) m/uL Hgb 10.7 L (13.0-17.5) gm/dL Hct 32.3 L (39.0-53.0) % RDW 17.2 H (11.5-15.5) % Plt Count 81 L (150-450) k/uL Neutrophils # (Manual) 20.59 H (1.3-7.7) k/uL Lymphocytes # (Manual) (1.0-4.8) k/uL Nucleated RBCs (0-0) /100 WBC PT (9.0-12.0) sec INR (<1.2) Chloride (98-107) mmol/L BUN (9-20) mg/dL Glucose (74-99) mg/dL POC Glucose (mg/dL) 287 H 300 H (75-99) mg/dL Calcium (8.4-10.2) mg/dL Phosphorus (2.5-4.5) mg/dL Magnesium (1.6-2.3) mg/dL AST (17-59) U/L ALT (21-72) U/L Total Protein (6.3-8.2) g/dL Albumin (3.5-5.0) g/dL 09/24/17 09/24/17 09/24/17 Range/Units 06:57 06:57 07:04 WBC (3.8-10.6) k/uL RBC (4.30-5.90) m/uL Hgb (13.0-17.5) gm/dL Hct (39.0-53.0) % RDW (11.5-15.5) % Plt Count (150-450) k/uL Neutrophils # (Manual) (1.3-7.7) k/uL Lymphocytes # (Manual) (1.0-4.8) k/uL Nucleated RBCs (0-0) /100 WBC PT 12.5 H (9.0-12.0) sec INR 1.3 H (<1.2) Chloride (98-107) mmol/L BUN 31 H (9-20) mg/dL Glucose 257 H (74-99) mg/dL POC Glucose (mg/dL) 257 H (75-99) mg/dL Calcium 7.8 L (8.4-10.2) mg/dL Phosphorus 2.2 L (2.5-4.5) mg/dL Magnesium 2.5 H (1.6-2.3) mg/dL AST 236 H (17-59) U/L ALT 855 H (21-72) U/L Total Protein 5.5 L (6.3-8.2) g/dL Albumin 2.9 L (3.5-5.0) g/dL 09/24/17 Range/Units 11:44 WBC (3.8-10.6) k/uL RBC (4.30-5.90) m/uL Hgb (13.0-17.5) gm/dL Hct (39.0-53.0) % RDW (11.5-15.5) % Plt Count (150-450) k/uL Neutrophils # (Manual) (1.3-7.7) k/uL Lymphocytes # (Manual) (1.0-4.8) k/uL Nucleated RBCs (0-0) /100 WBC PT (9.0-12.0) sec INR (<1.2) Chloride (98-107) mmol/L BUN (9-20) mg/dL Glucose (74-99) mg/dL POC Glucose (mg/dL) 313 H (75-99) mg/dL Calcium (8.4-10.2) mg/dL Phosphorus (2.5-4.5) mg/dL Magnesium (1.6-2.3) mg/dL AST (17-59) U/L ALT (21-72) U/L Total Protein (6.3-8.2) g/dL Albumin (3.5-5.0) g/dL Microbiology - Last 24 Hours (Table) 09/20/17 23:26 Blood Culture - Preliminary Blood No Growth after 72 hours 09/21/17 00:32 Urine Culture - Final Urine,Catheterized Assessment and Plan Plan: Assessment: 1. Acute sepsis and septic shock, most likely secondary to his recent dog bite. Hence we'll continue IV antibiotic, fluids, 2. Shortness of breath with chest pain and Elevated d-dimer: Index of suspicion for pulmonary embolism is extremely low, hence I have discontinued his heparin completely. And no need for a CT angiogram of the chest at this point. 3. Acute kidney injury secondary to sepsis and septic shock , improving significantly. 5. Acute asthma exacerbation , presently on bronchodilators and IV Solu-Medrol. 6. Acute gastroenteritis, C. difficile colitis was actually ruled out.. The possibility of graft versus host disease is in the differential diagnoses, but felt to be less likely clinically. Diarrhea has resolved, elevated liver enzymes are a bit concerning, but we'll continue to monitor for now. Patient remains on Solu-Medrol, but is relatively small dose. 7 multiple comorbidities including diabetes type 2, history of CML, history of coronary artery disease and previous stent placement, and history of peripheral vessel occlusive disease with recent percutaneous superficial femoral artery atherectomy and percutaneous transluminal balloon angioplasty of the left leg in July of 2017. Recommendation: Agree with IV Lasix, patient has extensive generalized edema and has been fluid resuscitated in the initial phases of the septic shock. Now he has been hemodynamically stable, remains afebrile, vital signs are stable. Microbiology remains negative, continue antibiotic therapy per ID service recommendations. Liver enzymes are trending down, renal function continues to improve. Continue nebulized bronchodilators and IV Solu-Medrol. I performed a history & physical examination of the patient and discussed their management with my nurse practitioner, Alison Mckinnon. I reviewed the nurse practitioner's note and agree with the documented findings and plan of care. Lung sounds are positive for diffuse wheezes throughout the lung hess and coarse bibasilar rales. The findings and the impression was discussed with the patient. I attest to the documentation by the nurse practitioner. Time with Patient: Less than 30
[2017-09-24] MEDS ORDERED: INSULIN ASPART 100 UNIT/ML 1 ML 10 ML VIAL SQ ONE (13:41)
--- NOTE | 2017-09-24 13:59 | P.PN ---
Subjective Progress Note Date: 09/24/17 Principal diagnosis: sepsis Pt seen in f/u, pt is breathing much more comfortably, he continues to cough, some sputum, no hemoptysis, his left hand dog bite no longer showing symptoms of infection, his abd is distended today, he can't remember his last BM, legs are swollen but not significantly worse. He is ambulating. Objective - Vital Signs Vital signs: Vital Signs Temp 96.3 F L 09/24/17 06:55 Pulse 75 09/24/17 11:01 Resp 16 09/24/17 08:10 BP 121/69 09/24/17 06:55 Pulse Ox 95 09/24/17 06:55 Intake & Output 09/23/17 09/24/17 09/24/17 18:59 06:59 18:59 Intake Total 1870 Output Total 950 Balance 920 Intake: IV 1010 Immune Globulin (Human- 200 IgG) 20 gm In Empty Bag 1 bag @ As Directed IV . Q0M [facility] Rx#:[id number] Meropenem 1 gm In Sodium 100 Chloride 0.9% 100 ml @ 100 mls/hr IVPB Q12H [facility] Rx#:[id number] Sodium Chloride 0.9% 1, 210 000 ml @ 50 mls/hr IV . Q20H [facility] Rx#:[id number] Vancomycin 1,750 mg In 500 Sodium Chloride 0.9% 500 ml @ 167 mls/hr IVPB Q24HR@0800 [facility] Rx#: [id number] Oral 860 Output: Urine 950 Other: Voiding Method Indwelling Catheter # Voids 0 3 # Bowel Movements 1 - Constitutional General appearance: Present: cooperative, no acute distress, obese - EENT EENT Comment(s): dry mucus membranes - Respiratory Respiratory: bilateral: diminished - Cardiovascular Heart sounds: normal: S1, S2 - Peripheral edema leg Peripheral Edema: bilateral: 1+ - Gastrointestinal Gastrointestinal Comment(s): dulness percussed 1/2 way, posterior to anterior abd when laying supine, faint BS were heard General gastrointestinal: Present: distended - Integumentary Integumentary: Present: pale - Neurologic Neurologic: Present: CNII-XII intact - Musculoskeletal Musculoskeletal: Present: strength equal bilaterally - Psychiatric Psychiatric: Present: A&O x's 3, appropriate affect, intact judgment & insight - Labs CBC & Chem 7: 09/24/17 06:57 09/24/17 06:57 Labs: Abnormal Lab Results - Last 24 Hours (Table) 09/23/17 09/23/17 09/23/17 Range/Units 04:21 17:10 20:51 WBC (3.8-10.6) k/uL RBC (4.30-5.90) m/uL Hgb (13.0-17.5) gm/dL Hct (39.0-53.0) % RDW (11.5-15.5) % Plt Count (150-450) k/uL Neutrophils # (Manual) (1.3-7.7) k/uL PT (9.0-12.0) sec INR (<1.2) Chloride 108 H (98-107) mmol/L BUN 37 H (9-20) mg/dL Glucose 135 H (74-99) mg/dL POC Glucose (mg/dL) 287 H 300 H (75-99) mg/dL Calcium 7.7 L (8.4-10.2) mg/dL Phosphorus 2.4 L (2.5-4.5) mg/dL Magnesium 2.8 H (1.6-2.3) mg/dL AST 738 H (17-59) U/L ALT 1280 H (21-72) U/L Total Protein 5.2 L (6.3-8.2) g/dL Albumin 3.0 L (3.5-5.0) g/dL 09/24/17 09/24/17 09/24/17 Range/Units 06:57 06:57 06:57 WBC 23.4 H (3.8-10.6) k/uL RBC 3.72 L (4.30-5.90) m/uL Hgb 10.7 L (13.0-17.5) gm/dL Hct 32.3 L (39.0-53.0) % RDW 17.2 H (11.5-15.5) % Plt Count 81 L (150-450) k/uL Neutrophils # (Manual) 20.59 H (1.3-7.7) k/uL PT 12.5 H (9.0-12.0) sec INR 1.3 H (<1.2) Chloride (98-107) mmol/L BUN 31 H (9-20) mg/dL Glucose 257 H (74-99) mg/dL POC Glucose (mg/dL) (75-99) mg/dL Calcium 7.8 L (8.4-10.2) mg/dL Phosphorus 2.2 L (2.5-4.5) mg/dL Magnesium 2.5 H (1.6-2.3) mg/dL AST 236 H (17-59) U/L ALT 855 H (21-72) U/L Total Protein 5.5 L (6.3-8.2) g/dL Albumin 2.9 L (3.5-5.0) g/dL 09/24/17 09/24/17 Range/Units 07:04 11:44 WBC (3.8-10.6) k/uL RBC (4.30-5.90) m/uL Hgb (13.0-17.5) gm/dL Hct (39.0-53.0) % RDW (11.5-15.5) % Plt Count (150-450) k/uL Neutrophils # (Manual) (1.3-7.7) k/uL PT (9.0-12.0) sec INR (<1.2) Chloride (98-107) mmol/L BUN (9-20) mg/dL Glucose (74-99) mg/dL POC Glucose (mg/dL) 257 H 313 H (75-99) mg/dL Calcium (8.4-10.2) mg/dL Phosphorus (2.5-4.5) mg/dL Magnesium (1.6-2.3) mg/dL AST (17-59) U/L ALT (21-72) U/L Total Protein (6.3-8.2) g/dL Albumin (3.5-5.0) g/dL Microbiology - Last 24 Hours (Table) 09/20/17 23:26 Blood Culture - Preliminary Blood No Growth after 72 hours 09/21/17 00:32 Urine Culture - Final Urine,Catheterized Assessment and Plan (1) 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 He will f/u here for lab draws PRN Current Visit: Yes Status: Chronic Priority: High Code(s): T86.09 - OTHER COMPLICATIONS OF BONE MARROW TRANSPLANT SNOMED Code(s): 688823610 (2) Status post bone marrow transplant Current Visit: No Status: Chronic Code(s): Z94.81 - BONE MARROW TRANSPLANT STATUS SNOMED Code(s): 040901938 (3) CML (chronic myeloid leukemia) Current Visit: No Status: Chronic Priority: Low Code(s): C92.10 - CHRONIC MYELOID LEUK, BCR/ABL-POSITIVE, NOT ACHIEVE REMIS SNOMED Code(s): 00347755 (4) Hypogammaglobulinaemia, unspecified Narrative/Plan: Ig levels ordered, reviewed, with pt history of leukemia, transplant, acute sepsis presentation IVIG was felt to be appropriate. Discussed case with Pharmacy. IVIG administered, pt tolerated well. Current Visit: Yes Status: Acute Priority: High Code(s): D80.1 - NONFAMILIAL HYPOGAMMAGLOBULINEMIA SNOMED Code(s): 960641733 Plan: Pt states he is being given lasix for abd distension. Pt abd on exam seemed to exhibit moderate ascites. Recommended US evaluation and possible paracentesis, pt states he will think about it.
--- NOTE | 2017-09-24 15:40 | PN ---
PROGRESS NOTE Patient is seen for followup of acute kidney injury. He will be transferred out of the ICU. The patient is currently doing better. However, he is complaining of increased swelling and some shortness of breath, which is new as compared to yesterday. He denies any chest pain. PHYSICAL EXAMINATION: Blood pressure is 121/69, heart rate is 72 per minute. He is afebrile. Examination of the heart S1 and S2. LUNGS: Decreased breath sounds at the bases. Minimal basal crackles are heard. Abdomen is soft, distended with abdominal wall edema noted. Examination of lower extremity shows edema 1+ bilaterally. [employer] exam is grossly intact. LAB: Show sodium 142, potassium 4.4, chloride 106, BUN 31, serum creatinine 0.9, hemoglobin 10.7 g/dL. ASSESSMENT: 1. Acute kidney injury secondary to sepsis, hypotension and hypoperfusion currently improved with creatinine down to 0.9 from 3.2 mg/dL on initial admission. I will discontinue the IV fluids as patient is hypervolemic. 2. Fluid overload. Discontinue IV fluids and start Lasix. 3. Hypophosphatemia. Patient was hyperphosphatemic secondary to his renal failure initially. He is not on any phosphate binders. He is encouraged to increase his oral intake. 4. Pneumonia, maintained on antibiotics and improving. 5. History of CML status post bone marrow transplant. 6. Sepsis secondary to dog bite on the left. Currently significantly improved. 7. Elevated liver enzymes secondary to hypotension and hypoperfusion. Currently improved. 8. History of xciat-[id number] disease. The patient has stopped taking his immunosuppressive medications about a year prior to this admission. PLAN: DC IV fluids. Start Lasix. Repeat labs in a.m. Encourage increased oral intake. MMODL / IJN: [id number] /
[2017-09-24 17:03] LABS: Glucose,Whole Blood 250 mg/dL (75-99)
[2017-09-24] MEDS: BUTALB/APAP/CAFF 50-325-40MG TAB PO PRN (17:26)
[2017-09-24] MEDS: FUROSEMIDE 10 MG/ML 4 ML VIAL IV SCH (17:26)
[2017-09-24 21:13] LABS: Glucose,Whole Blood 253 mg/dL (75-99)
[2017-09-24] MEDS: lamoTRIgine 25 MG TAB PO SCH (21:21)
[2017-09-24] MEDS: guaiFENesin 600 MG TABLET.ER PO SCH (21:23)
[2017-09-24] MEDS: INSULIN DETEMIR 100 UNIT/ML 10 ML VIAL SQ SCH (21:24)
[2017-09-25] MEDS: ACETAMINOPHEN TAB 325 MG TAB PO PRN (02:29)
[2017-09-25] MEDS: IPRATROPIUM-ALBUTEROL 3 ML NEB INHALATION SCH ×6 (03:32→23:39)
[2017-09-25] MEDS: FUROSEMIDE 10 MG/ML 4 ML VIAL IV SCH ×2 (06:28→17:57)
[2017-09-25] MEDS: methylPREDNISolone SOD SUCCI 125 MG/2 ML VIAL IV SCH ×3 (06:30→17:57)
[2017-09-25] MEDS: SALT AND SODA MOUTHWASH 1,000 ML PO SCH ×4 (06:33→20:17)
[2017-09-25 07:20] LABS: Glucose,Whole Blood 225 mg/dL (75-99)
[2017-09-25 07:57] LABS: INR 1.4 (<1.2)
[2017-09-25 08:03] LABS: ALT 701 U/L (21-72); AST 91 U/L (17-59); Albumin 3.4 g/dL (3.5-5.0); Alkaline Phosphatase 109 U/L (38-126); Anion Gap 10 mmol/L; Blood Urea Nitrogen 26 mg/dL (9-20); Calcium 8.5 mg/dL (8.4-10.2); Carbon Dioxide 33 mmol/L (22-30); Chloride 99 mmol/L (98-107); Glucose 222 mg/dL (74-99); Phosphorus 3.1 mg/dL (2.5-4.5); Potassium 3.8 mmol/L (3.5-5.1); Sodium 142 mmol/L (137-145); Total Bilirubin 1.8 mg/dL (0.2-1.3); Total Protein 6.2 g/dL (6.3-8.2)
[2017-09-25] MEDS: ENOXAPARIN 30 MG/0.3 ML SYRINGE SQ SCH (08:15)
[2017-09-25] MEDS: MEROPENEM 1 GM in SODIUM CHLORIDE 0.9% 100 ML IVPB SCH ×2 (08:16→20:18)
[2017-09-25] MEDS: INSULIN ASPART 100 UNIT/ML 1 ML 10 ML VIAL SQ SCH ×4 (08:16→23:05)
[2017-09-25] MEDS: guaiFENesin 600 MG TABLET.ER PO SCH ×2 (08:16→20:18)
[2017-09-25] MEDS: PANTOPRAZOLE 40 MG TABLET PO SCH (08:16)
[2017-09-25] MEDS: CLOPIDOGREL 75 MG TAB PO SCH (08:16)
[2017-09-25 08:42] LABS: Anisocytosis Slight; HCT 35.6 % (39.0-53.0); HGB 11.5 gm/dL (13.0-17.5); MCH 27.7 pg (25.0-35.0); MCHC 32.2 g/dL (31.0-37.0); MCV 85.9 fL (80.0-100.0); Mean Platelet Volume 10.1; Platelet Count 101 k/uL (150-450); Poikilocytosis Slight; RBC 4.15 m/uL (4.30-5.90); RDW 16.6 % (11.5-15.5)
[2017-09-25 09:49] LABS: Band Neutrophils % 6 %; Lymphocytes # (M) 1.15 k/uL (1.0-4.8); Metamyelocytes # (M) 0.23 k/uL (0); Metamyelocytes % 1 %; Monocytes # (M) 2.98 k/uL (0-1.0); Myelocytes # (M) 0.23 k/uL (0); Myelocytes % 1 %; Neutrophils % (M) 75 %; Nucleated Red Blood Cells 1 /100 WBC (0-0); Total Cells Counted 200; WBC 22.9 k/uL (3.8-10.6)
[2017-09-25 09:50] LABS: Polychromasia Present
[2017-09-25 09:53] LABS: RBC Fragments Present; Target Cells Present
[2017-09-25] MEDS: VANCOMYCIN 1,750 MG in SODIUM CHLORIDE 0.9% 500 ML IVPB SCH ×2 (11:21→22:56)
[2017-09-25 12:19] LABS: Glucose,Whole Blood 259 mg/dL (75-99)
--- NOTE | 2017-09-25 12:25 | P.PN ---
Subjective Progress Note Date: 09/25/17 Principal diagnosis: Acute septic shock and sepsis This is a 52-year-old white male with history of CML and bone marrow transplant in 2006, patient has been on antirejection therapy for quite some time, a year ago stopped taking his anti rejection therapy on his own. Patient is also known to have history of diabetes, hypertension, coronary artery disease and previous stent placement, history of bronchial asthma and obstructive sleep apnea as well as peripheral vessel occlusive disease. Last , which is 4 days ago, patient was bit at his left hand by a showed dog who is supposedly immunized fully. Patient did not seek any medical attention, he just cleaned his wound and placed topical antibiotics on the site of the bite. Patient developed some swelling and redness around the puncture site, there was no evidence of any purulent drainage, and he was happy that the area seems to be healing on its own. Last night, the patient developed fever with a temp as high as 102, shortness of breath, wheezing, diarrhea, nonbloody, some vague abdominal discomfort, episodes of nausea but no vomiting, and significant lower chest and upper abdominal pain. Upon presentation to the ER, his lactic acid was elevated, patient was hypotensive requiring fluid boluses, and he also required levo fed, presently on for mics of levo fed. Patient was admitted with the impression of septic shock and sepsis. Broad-spectrum antibiotics were initiated, presently on vancomycin and cefepime. Patient is also noted to have acute kidney injury. For some reason a VQ scan was ordered, but the patient is presently on heparin, and the clinical history does not suggestive of pulmonary embolism. His shortness of breath is easily explained by his sepsis and his wheezing noted on physical examination. CT of the abdomen without contrast was noted to be unremarkable. Lasix was given earlier since the patient received significant amount of fluid boluses earlier, and his urine output was marginal. During my evaluation, patient was noted to be slightly dyspneic, anxious, and on for mics of levo fed for adequate mean arterial pressure of 70. Patient denies any chest pain, he does have fever and chills, generalized aches, no dysuria, no frequency, no urgency. He does have intermittent episodes of dry hacking cough and wheezing. Chest x-ray on admission and chest x-ray this morning is basically normal. Patient was reevaluated today on 09/22/2017, off pressors, on nasal cannula, in no distress, significant improvement noted in the last 24 hours, his lactic acid today is 2.8. Patient is feeling better, breathing easier, urine output is excellent, continues to have leukocytosis with WBC count of 15.8, PTT is therapeutic at 53.3, electrolytes are significantly improved renal profile is significantly improved with a BUN of 38 creatinine of 1.62, however liver profile seems to be worsening, elevated transaminases were noted. Blood cultures remain negative. Patient was seen by Dr. Hill yesterday, and he was placed on Merrem. Replacing cefepime. Patient remains on vancomycin. Dr. Hill seems to be concerned about the possibility of Capnocytophagia canimorsus which is a very fastidious organism, and will take a long time to grow and cultures. Clinically the patient is better except for the elevated liver enzymes. His breathing is significantly improved. Patient remains on steroids, he is also on heparin, I will likely discontinue heparin if we get to the point where a CT angiogram of the chest can be done once his renal profile improves, my index of suspicion for pulmonary embolism is rather low, venous Doppler was negative, patient did have elevated d-dimer on admission. And the presentation is mostly a presentation of sepsis rather than thromboembolic disease. Chest x-ray this morning showed mild pulmonary venous congestion without overt failure. Urine output is excellent, patient is putting out about 100 mL per hour. He is hemodynamically stable, and norepinephrine was discontinued at 1 PM yesterday. Patient was seen today again on 09/23/2017, patient is doing relatively well, asymptomatic except for some vague abdominal discomfort, denies any cough wheezing or shortness of breath, afebrile, hemodynamically stable. Patient is off norepinephrine, and has been off norepinephrine for the last 2 days. His CBC however is showing significant worsening, WBC count is in the 24,000 range, abnormal differential noted, and abnormal peripheral smear noted. His renal functioning has improved significantly, started out with a creatinine of 3.20, however his creatinine today is 1.1. Urine output is excellent. Liver enzymes remain elevated. Cultures including blood cultures are negative so far. On 09/24/2017 patient seen in follow-up on medical surgical floor. He is a bit more short of breath today, there is some scattered wheezes noted bilaterally, lung sounds are positive for coarse crackles, at the bases. Patient was given some IV Lasix per nephrology. He he has bilateral upper and lower extremity nonpitting edema, and some edema in his abdomen. Abdomen is distended but nontender. Patient states he could not get to sleep, he could not get comfortable last night, he thinks may be related to increased shortness of breath related to his abdominal distention, and fluid overload. denies any chest pain, room air pulse ox is 95%, he is hemodynamically stable, he is afebrile, microlobiology results remain negative today, patient has been given some IVIG yesterday per hematology service. Today's blood work shows a WBC of 23.4, hemoglobin of 10.7, platelet count of 81, electrolytes are within normal limits, B1 is 31, creatinine 0.91, his liver enzymes are improving, his AST is down to 236, AST is down to 855, alkaline phosphatase is 122. And patient is starting to diurese and response to IV Lasix. On 09/25/2017 patient seen in follow-up, he is diuresing, and his generalized edema seems to be improving, less tightness skin in bilateral upper and lower extremities. Some residual edema remains. Abdomen is distended, and the patient stated he could not sleep well last night, not get comfortable, he states his abdominal wall is sore to palpation, it is tight. He is passing bowel movements, no diarrhea, he stated last 2 bowel movements were normal in consistency and color. Denies any dyspnea, denies any chest pain, he is on room air, the pulse ox of 96%, afebrile, vital signs are stable. Microbiology remains negative today, patient is on meropenem and vancomycin per ID service recommendations, lung sounds are clear to auscultation. Liver enzymes are continuously trending down, although his bilirubin is up to 1.8, but AST is down to 91, ALT is 701. BUN is 26, and creatinine is 0.93, CO2 is 33, and patient may be developing volume contraction alkalosis. Objective - Vital Signs Vital signs: Vital Signs Temp 96.4 F L 09/25/17 06:18 Pulse 70 09/25/17 11:02 Resp 16 09/25/17 06:18 BP 137/70 09/25/17 06:18 Pulse Ox 96 09/25/17 07:32 Intake & Output 09/24/17 09/25/17 09/25/17 18:59 06:59 18:59 Intake Total 1100 240 Output Total 500 450 Balance 1100 -500 -210 Intake: Oral 1100 240 Output: Urine 500 450 Other: # Voids 6 1 # Bowel Movements 0 - Exam Physical Exam: Revealed a 52-year-old white male, in no form of respiratory distress, patient is presently on nasal cannula at 3 L/m. Head: Atraumatic, normocephalic. HEENT:[Neck is supple.] [No neck masses.] [No thyromegaly.] [No JVD.] Dry mucous membranes, PERRLA, EOMI. Chest: [Diminished breath sounds bilaterally, with coarse bibasilar crackles Cardiac Exam: [Normal S1 and S2, no S3 gallop, no murmur.] Abdomen: [Soft, nontender, no megaly, no rebound, no guarding, normal bowel sounds.] Extremities: [No clubbing, no cyanosis. Generalized edema, and bilateral upper and lower extremities, as well as abdominal wall] Neurological Exam: [No focal neurologic deficit.] Lymphatics: No lymphadenopathy. Psychiatric: Normal mood affect and mental status examination. Skin: Left hand small laceration is noted between the thumb and first finger with some scabbing, no fluctuance, no redness, no pus was noted, puncture garza noted on the lateral aspect of the left hand posteriorly. - Labs CBC & Chem 7: 09/25/17 07:33 09/25/17 07:33 Labs: Abnormal Lab Results - Last 24 Hours (Table) 09/24/17 09/24/17 09/24/17 Range/Units 11:44 16:51 21:10 WBC (3.8-10.6) k/uL RBC (4.30-5.90) m/uL Hgb (13.0-17.5) gm/dL Hct (39.0-53.0) % RDW (11.5-15.5) % Plt Count (150-450) k/uL Neutrophils # (Manual) (1.3-7.7) k/uL Monocytes # (Manual) (0-1.0) k/uL Metamyelocytes # (Man) (0) k/uL Myelocytes # (Manual) (0) k/uL Nucleated RBCs (0-0) /100 WBC PT (9.0-12.0) sec INR (<1.2) Carbon Dioxide (22-30) mmol/L BUN (9-20) mg/dL Glucose (74-99) mg/dL POC Glucose (mg/dL) 313 H 250 H 253 H (75-99) mg/dL Total Bilirubin (0.2-1.3) mg/dL AST (17-59) U/L ALT (21-72) U/L Total Protein (6.3-8.2) g/dL Albumin (3.5-5.0) g/dL 09/25/17 09/25/17 09/25/17 Range/Units 07:06 07:33 07:33 WBC 22.9 H (3.8-10.6) k/uL RBC 4.15 L (4.30-5.90) m/uL Hgb 11.5 L (13.0-17.5) gm/dL Hct 35.6 L (39.0-53.0) % RDW 16.6 H (11.5-15.5) % Plt Count 101 L (150-450) k/uL Neutrophils # (Manual) 18.50 H (1.3-7.7) k/uL Monocytes # (Manual) 2.98 H (0-1.0) k/uL Metamyelocytes # (Man) 0.23 H (0) k/uL Myelocytes # (Manual) 0.23 H (0) k/uL Nucleated RBCs 1 H (0-0) /100 WBC PT 13.0 H (9.0-12.0) sec INR 1.4 H (<1.2) Carbon Dioxide (22-30) mmol/L BUN (9-20) mg/dL Glucose (74-99) mg/dL POC Glucose (mg/dL) 225 H (75-99) mg/dL Total Bilirubin (0.2-1.3) mg/dL AST (17-59) U/L ALT (21-72) U/L Total Protein (6.3-8.2) g/dL Albumin (3.5-5.0) g/dL 09/25/17 Range/Units 07:33 WBC (3.8-10.6) k/uL RBC (4.30-5.90) m/uL Hgb (13.0-17.5) gm/dL Hct (39.0-53.0) % RDW (11.5-15.5) % Plt Count (150-450) k/uL Neutrophils # (Manual) (1.3-7.7) k/uL Monocytes # (Manual) (0-1.0) k/uL Metamyelocytes # (Man) (0) k/uL Myelocytes # (Manual) (0) k/uL Nucleated RBCs (0-0) /100 WBC PT (9.0-12.0) sec INR (<1.2) Carbon Dioxide 33 H (22-30) mmol/L BUN 26 H (9-20) mg/dL Glucose 222 H (74-99) mg/dL POC Glucose (mg/dL) (75-99) mg/dL Total Bilirubin 1.8 H (0.2-1.3) mg/dL AST 91 H (17-59) U/L ALT 701 H (21-72) U/L Total Protein 6.2 L (6.3-8.2) g/dL Albumin 3.4 L (3.5-5.0) g/dL Microbiology - Last 24 Hours (Table) 09/20/17 23:26 Blood Culture - Preliminary Blood No Growth after 96 hours Assessment and Plan Plan: Assessment: 1. Acute sepsis and septic shock, most likely secondary to his recent dog bite. Hence we'll continue IV antibiotic, fluids, 2. Shortness of breath with chest pain and Elevated d-dimer: Index of suspicion for pulmonary embolism is extremely low, hence I have discontinued his heparin completely. And no need for a CT angiogram of the chest at this point. 3. Acute kidney injury secondary to sepsis and septic shock , improving significantly. 5. Acute asthma exacerbation , presently on bronchodilators and IV Solu-Medrol. 6. Acute gastroenteritis, C. difficile colitis was actually ruled out.. The possibility of graft versus host disease is in the differential diagnoses, but felt to be less likely clinically. Diarrhea has resolved, elevated liver enzymes are a bit concerning, but we'll continue to monitor for now. Patient remains on Solu-Medrol, but is relatively small dose. 7 multiple comorbidities including diabetes type 2, history of CML, history of coronary artery disease and previous stent placement, and history of peripheral vessel occlusive disease with recent percutaneous superficial femoral artery atherectomy and percutaneous transluminal balloon angioplasty of the left leg in July of 2017. Recommendation: Continue diuretics per nephrology recommendations, patient's generalized edema is improving in response to diuresis. From pulmonary standpoint she denies any shortness of breath or chest pain, he is on room air, no wheezing, no chest congestion. Cultures remain negative. We will the patient on as-needed basis I performed a history & physical examination of the patient and discussed their management with my nurse practitioner, Alison Mckinnon. I reviewed the nurse practitioner's note and agree with the documented findings and plan of care. Lung sounds are diminished. The findings and the impression was discussed with the patient. I attest to the documentation by the nurse practitioner. Time with Patient: Less than 30
--- NOTE | 2017-09-25 12:56 | P.PN ---
Subjective Progress Note Date: 09/25/17 this is a 52-year-old male, patient of Dr. Sweeney. He has a known past medical history of CML with a bone marrow transplant in 2006 and previous chemo treatment. He has been off of his antirejection medications for about a year. Patient reports that he did not want to take 50 pounds. He also has a known history of asthma, coronary disease with stent, hypertension, diabetes mellitus , hyperlipidemia, obstructive sleep apnea and peripheral vascular disease. Patient reports last about 4 days ago he received a dog bite to the left hand. The dog's family dog and up-to-date on immunizations. He reports that he had some swelling in the hand and redness around the puncture sites. No pus drainage. He reports that it seemed to be healing. Thursday patient started to not feel well. He was feverish with a temp of 102. Having chills and sweats. Also started to have some nausea and diarrhea. Decrease in appetite. He also started to have a cough with some phlegm production. Patient started to become concerned on Thursday still having temps and diarrhea. Came into the emergency room for further evaluation and treatment. Patient also had been reporting lower chest and abdomen discomfort. Patient had a white count 12.6 creatinine elevated at 3.20 and lactic acid elevated at 6.3 up to 8.5. Patient was found to be septic received 3 L of IV fluid boluses for his hypotension. Patient continued to become more short of breath and increased respiratory rate. BiPAP was ordered. Patient did not tolerate the BiPAP. He was transferred to the ICU. He is currently on 4 mics of Levophed. And on but broad-spectrum antibiotics which include Levaquin Vanco and cefuroxime. Critical care, infectious disease,oncology and nephrology has been consulted. Nephrology has ordered dose of IV Lasix with evidence of fluid overload earlier this morning. Patient also had an elevated d-dimer. Unable to do a CAT scan due to elevated creatinine. Patient currently cannot tolerate a VQ scan. Pulmonate service evaluated patient is on IV heparin. VQ scan and venous Dopplers have been ordered. CT of chest abdomen and pelvis is unremarkable. EKG showing a normal sinus rhythm with nonspecific T-wave abnormality 09/22/2017 patient currently in ICU. He was seen by Dr. Hill antibiotics were adjusted to meropenem and vancomycin was continued. Troponins were negative 2 sets. Doppler was negative for DVT. He remains on IV steroids for his asthma exacerbation. Creatinine has come down to 1.62. Chest x-ray showing some pulmonary venous congestion with out overt failure. Patient did have a rise in his liver enzymes AST 1000 491 and ALT 1513. He is complaining of some epigastric tenderness. Denies any alcohol abuse. He is off the Levophed. Case was discussed with pulmonarypractitioner will await their further recommendations. 09/24/2017 patient was transferred out of the ICU yesterday. His IgG levels were low and required IVIG.. Patient is more edematous throughout his body today. Having some shortness of breath but not requiring oxygen. He also is wheezy. White count has come down from 24.7 to 23.4. Liver enzymes are also trending down. Patient remains on IV antibiotics. Pending and Vanco. Nephrology has started patient on IV Lasix for his fluid overload. Patient denies any chest pain. Denies any nausea or vomiting. Reports having bowel movements. Denies any difficulty with urinating. 09/25/2017 patient still having significant generalized edema. Abdomen is slightly softer. Denies any chest pain or shortness of breath. Wheezing has resolved. Reports having bowel movements. Denies any difficulty with urinating. Objective - Vital Signs Vital signs: Vital Signs Temp 96.4 F L 09/25/17 06:18 Pulse 74 09/25/17 11:09 Resp 16 09/25/17 06:18 BP 137/70 09/25/17 06:18 Pulse Ox 96 09/25/17 07:32 Intake & Output 09/24/17 09/25/17 09/25/17 18:59 06:59 18:59 Intake Total 1100 240 Output Total 500 450 Balance 1100 -500 -210 Intake: Oral 1100 240 Output: Urine 500 450 Other: # Voids 6 1 # Bowel Movements 0 - Exam Head normocephalic Neck supple Lungs improvement in air movement. No wheezing Heart regular rate and rhythm S1-S2, no rub or gallop Abdomen is nontender but distended positive bowel sounds Extremities edema of bilateral lower and upper extremities. Neuro alert and orientated to 3 - Labs CBC & Chem 7: 09/25/17 07:33 09/25/17 07:33 Labs: Abnormal Lab Results - Last 24 Hours (Table) 09/24/17 09/24/17 09/25/17 Range/Units 16:51 21:10 07:06 WBC (3.8-10.6) k/uL RBC (4.30-5.90) m/uL Hgb (13.0-17.5) gm/dL Hct (39.0-53.0) % RDW (11.5-15.5) % Plt Count (150-450) k/uL Neutrophils # (Manual) (1.3-7.7) k/uL Monocytes # (Manual) (0-1.0) k/uL Metamyelocytes # (Man) (0) k/uL Myelocytes # (Manual) (0) k/uL Nucleated RBCs (0-0) /100 WBC PT (9.0-12.0) sec INR (<1.2) Carbon Dioxide (22-30) mmol/L BUN (9-20) mg/dL Glucose (74-99) mg/dL POC Glucose (mg/dL) 250 H 253 H 225 H (75-99) mg/dL Total Bilirubin (0.2-1.3) mg/dL AST (17-59) U/L ALT (21-72) U/L Total Protein (6.3-8.2) g/dL Albumin (3.5-5.0) g/dL 09/25/17 09/25/17 09/25/17 Range/Units 07:33 07:33 07:33 WBC 22.9 H (3.8-10.6) k/uL RBC 4.15 L (4.30-5.90) m/uL Hgb 11.5 L (13.0-17.5) gm/dL Hct 35.6 L (39.0-53.0) % RDW 16.6 H (11.5-15.5) % Plt Count 101 L (150-450) k/uL Neutrophils # (Manual) 18.50 H (1.3-7.7) k/uL Monocytes # (Manual) 2.98 H (0-1.0) k/uL Metamyelocytes # (Man) 0.23 H (0) k/uL Myelocytes # (Manual) 0.23 H (0) k/uL Nucleated RBCs 1 H (0-0) /100 WBC PT 13.0 H (9.0-12.0) sec INR 1.4 H (<1.2) Carbon Dioxide 33 H (22-30) mmol/L BUN 26 H (9-20) mg/dL Glucose 222 H (74-99) mg/dL POC Glucose (mg/dL) (75-99) mg/dL Total Bilirubin 1.8 H (0.2-1.3) mg/dL AST 91 H (17-59) U/L ALT 701 H (21-72) U/L Total Protein 6.2 L (6.3-8.2) g/dL Albumin 3.4 L (3.5-5.0) g/dL 09/25/17 Range/Units 12:06 WBC (3.8-10.6) k/uL RBC (4.30-5.90) m/uL Hgb (13.0-17.5) gm/dL Hct (39.0-53.0) % RDW (11.5-15.5) % Plt Count (150-450) k/uL Neutrophils # (Manual) (1.3-7.7) k/uL Monocytes # (Manual) (0-1.0) k/uL Metamyelocytes # (Man) (0) k/uL Myelocytes # (Manual) (0) k/uL Nucleated RBCs (0-0) /100 WBC PT (9.0-12.0) sec INR (<1.2) Carbon Dioxide (22-30) mmol/L BUN (9-20) mg/dL Glucose (74-99) mg/dL POC Glucose (mg/dL) 259 H (75-99) mg/dL Total Bilirubin (0.2-1.3) mg/dL AST (17-59) U/L ALT (21-72) U/L Total Protein (6.3-8.2) g/dL Albumin (3.5-5.0) g/dL Microbiology - Last 24 Hours (Table) 09/20/17 23:26 Blood Culture - Preliminary Blood No Growth after 96 hours Assessment and Plan Assessment: 1. Acute sepsis present on admission possibly secondary to dog bite to the left hand. Infectious disease has been consulted. Blood culture negative so far. Antibiotics adjusted per infectious disease patient currently on meropenem and vancomycin 2. Shortness of breath with chest pain and Elevated d-dimer: Unable to perform a CTA of the chest because of elevated creatinine. Patient unable to tolerate VQ scan at this time. Troponins negative 2 venous Doppler negative for DVT. Patient followed by pulmonary service. They started patient on Lovenox 30 mg daily 3. Acute kidney injury: Likely related to hypoperfusion due to patient's hypotension. As well as diarrhea. Creatinine 3.20 on admission. He has received IV fluids. Nephrology following closely. Creatinine has normalized 4. Hypotension patient receiving IV fluids. Patient is now off of Levophed 5. Acute asthma exacerbation patient was started on IV Solu-Medrol and bronchodilators. Pulmonary service following 6. Diarrhea . Patient had formed stool unable to complete stool study for C. diff 7. Diabetes mellitus type 2 : hyperglycemia related to the IV steroids. Patient currently on the Levemir and sliding scale. Continue to monitor 8. History of [id number] disease after bone marrow transplant. Patient has not been taking antirejection medication for over a year. Patient stopped taking them on his own. 9. History of CML status post chemotherapy and a bone marrow transplant in 2006. Oncology consulted 10. Mood disorder continue Lamictal 11. History of coronary artery disease with previous cardiac stent 12. Hyperkalemia: Resolved 13. Hypomagnesemia resolved 14. History of peripheral vascular disease with percutaneous superficial femoral artery arthrectomy and percutaneous transluminal balloon angioplasty of the left leg in July 2017 15. Metabolic acidosis secondary to lactic acidosis and renal failure. Neurology is placed patient on bicarb 16. Acute hypoxic respiratory initially requiring BiPAP. Currently on nasal cannula 17. Shocked liver: LFTs trending down . Lipitor and fenofibrate have been discontinued . 18. Thrombocytopenia: Continue to monitor 19. Low IgG level oncology has ordered IVIG 20. Fluid overload: Nephrology is ordered Lasix 40 mg IV every 12 hours. She should still having generalized edema with some improvement. continue diuresing 21. Moderate protein calorie malnutrition: At [facility] DVT prophylaxis lovenox and GI prophylaxis Protonix Consult physical therapy I performed an examination of the patient and discussed their management with the physician [employer] And [employer]r. I have reviewed the Physician [employer] Builder And Repairer's notes and agree with the documented findings and plan of care
--- NOTE | 2017-09-25 14:03 | PN ---
PROGRESS NOTE Patient is seen for followup for acute kidney injury. His acute renal failure has resolved with his significant improvement in his renal function. However, yesterday patient was volume overloaded and he has been started on diuretics. He is diuresing well and his creatinine is at 0.93 mg/dL. Overall, patient states he is feeling better. PHYSICAL EXAMINATION: Blood pressure is 137/70, heart rate 68 per minute. He is afebrile. Examination of the heart, S1, S2. Examination of the lungs, bilateral breath sounds are heard. Abdomen is soft, nontender. Examination of the lower extremities shows edema 1+ bilaterally. There is abdominal wall edema noted as well. TRAVEL PTA exam is grossly intact. LABS: Show sodium 142, potassium 3.8, BUN 26, serum creatinine 0.93. ASSESSMENT: 1. Acute kidney injury, acute tubular necrosis, initially oliguric, currently nonoliguric with significantly improved renal function. 2. Hypervolemia, started on IV Lasix which I will continue for now. 3. History of CML, status post bone marrow transplant. 4. Sepsis from dog bite on the left hand, currently improved. Patient remains on vancomycin, which is okay given the significant improvement in his renal function. PLAN: Continue with Lasix for now. MMODL / IJN: [id number] /
[2017-09-25 17:48] LABS: Glucose,Whole Blood 275 mg/dL (75-99)
[2017-09-25] MEDS: lamoTRIgine 25 MG TAB PO SCH (20:19)
[2017-09-25] MEDS: INSULIN DETEMIR 100 UNIT/ML 10 ML VIAL SQ SCH (22:59)
[2017-09-25 23:00] LABS: Glucose,Whole Blood 236 mg/dL (75-99)
--- NOTE | 2017-09-25 23:19 | P.PN ---
Subjective Progress Note Date: 09/25/17 52-year-old male with a known history of chronic myelogenous leukemia diagnosed in 2003. The patient was treated with chemotherapy by 2005 requiring allogenic stem cell transplantation. Since that time he said difficulties with [id number]-[id number] disease affecting his eyes and skin skin which has affected his quality of life. He has had plasmapheresis and ongoing follow-up with the [facility] in [place]. Apparently the patient stopped taking his suppressive medications nearly a year ago he was started taking 44 pills a day. Relates being off medications he actually felt a little better and has maintained himself off of medications, his is concerned with the patient is very self-directed. Apparently a few days ago the patient was admitted by a Josef, it is a show dog is up-to-date on all of his vaccines. He suffered a bite to his left hand. Local care was provided but despite that he's been having some increasing difficulties that included increasing fever with chills associated with nausea emesis increasing shortness of breath and feeling quite poorly overall. Consequently the patient did present to the emergency center and was admitted to the intensive care unit with evidence of sepsis and shock requiring vasopressor therapy and fluid resuscitation. With fluid resuscitation could become a bit more short of breath and did have a good fluid response to Lasix. With the rehydration he has had some electrolyte imbalance has had some muscle spasms is comfortable at the moment as far as the musculoskeletal difficulties. He does feel quite poorly overall is improved since admission possibly due to the high dose of methylprednisolone that has been started. August patient is feeling better , hypotension is resolved, respirations are improved, pain and discomfort is improved with muscle spasms. Still short of breath but improved, no hemoptysis. Pain to the left hand is improved still some swelling. 09/23/2017 patient is improved he's been transferred out of the intensive care unit. He is still having some cough and some shortness of breath but this is also improved. He has received a considerable amount of fluid resuscitation and hypotension is resolved but appears to have a bit of fluid in the bilateral bases. His IgG level is low. He'll receive intravenous immunoglobulin today. Relates the pain in his left hand is improved. But is having some discomfort so needs taking deep breaths with musculoskeletal pain 09/25/2017 continues improvement less short of breath and edema is improving. Objective - Vital Signs Vital signs: Vital Signs Temp 96.2 F L 09/25/17 15:34 Pulse 74 09/25/17 20:08 Resp 20 09/25/17 15:34 BP 128/66 09/25/17 15:34 Pulse Ox 97 09/25/17 16:03 Intake & Output 09/25/17 09/25/17 09/26/17 06:59 18:59 06:59 Intake Total 1480 Output Total 500 450 Balance -500 1030 Intake: IV 500 Meropenem 1 gm In Sodium 100 Chloride 0.9% 100 ml @ 100 mls/hr IVPB Q12H JADEN Rx#:[id number] Sodium Chloride 0.9% 1, 400 000 ml @ 50 mls/hr IV . Q20H JADEN Rx#:[id number] Intake, IV Titration 500 Amount Vancomycin 1,750 mg In 500 Sodium Chloride 0.9% 500 ml @ 167 mls/hr IVPB Q12HR JADEN Rx#:[id number] Oral 480 Output: Urine 500 450 Other: # Voids 1 # Bowel Movements 0 - Exam 52-year-old male seems to be somewhat uncomfortable HEENT: Anicteric conjunctiva irritated and dry nasal mucosa grossly intact without significant lesions, there is no thrush. Poor dentition. Place Neck: The neck is supple without significant lymphadenopathy or thyromegaly. Lungs: Symmetrical air entry is noted expiratory wheezes are scattered no amy bronchial sounds no dullness or egophony Heart: Regular rate and rhythm with an audible S1-S2, no S3 no S4. There is no significant murmur click or rub, PMI was nondisplaced. Abdomen: Positive bowel sounds soft minimal tenderness without palpable masses or organomegaly. There was no guarding or rebound. Extremities: The right upper extremity is intact without difficulty. The upper extremity as the dog bite left hand. There is some bruising around the lateral surface of the hand, which is now improved, but he has on heparin the INR has been elevated the scratch the base of the thumb is without bleeding. There is no ascending erythema and there is no lymphadenopathy epitrochlear or axillary this time. No other enlarged lymph nodes are noted is have chronic dryness to his skin Neuro: Awake alert oriented to person place and time. There are no acute new gross focal sensory motor deficits. - Labs CBC & Chem 7: 09/25/17 07:33 09/25/17 07:33 Labs: Abnormal Lab Results - Last 24 Hours (Table) 09/25/17 09/25/17 09/25/17 Range/Units 07:06 07:33 07:33 WBC 22.9 H (3.8-10.6) k/uL RBC 4.15 L (4.30-5.90) m/uL Hgb 11.5 L (13.0-17.5) gm/dL Hct 35.6 L (39.0-53.0) % RDW 16.6 H (11.5-15.5) % Plt Count 101 L (150-450) k/uL Neutrophils # (Manual) 18.50 H (1.3-7.7) k/uL Monocytes # (Manual) 2.98 H (0-1.0) k/uL Metamyelocytes # (Man) 0.23 H (0) k/uL Myelocytes # (Manual) 0.23 H (0) k/uL Nucleated RBCs 1 H (0-0) /100 WBC PT 13.0 H (9.0-12.0) sec INR 1.4 H (<1.2) Carbon Dioxide (22-30) mmol/L BUN (9-20) mg/dL Glucose (74-99) mg/dL POC Glucose (mg/dL) 225 H (75-99) mg/dL Total Bilirubin (0.2-1.3) mg/dL AST (17-59) U/L ALT (21-72) U/L Total Protein (6.3-8.2) g/dL Albumin (3.5-5.0) g/dL 09/25/17 09/25/17 09/25/17 Range/Units 07:33 12:06 17:16 WBC (3.8-10.6) k/uL RBC (4.30-5.90) m/uL Hgb (13.0-17.5) gm/dL Hct (39.0-53.0) % RDW (11.5-15.5) % Plt Count (150-450) k/uL Neutrophils # (Manual) (1.3-7.7) k/uL Monocytes # (Manual) (0-1.0) k/uL Metamyelocytes # (Man) (0) k/uL Myelocytes # (Manual) (0) k/uL Nucleated RBCs (0-0) /100 WBC PT (9.0-12.0) sec INR (<1.2) Carbon Dioxide 33 H (22-30) mmol/L BUN 26 H (9-20) mg/dL Glucose 222 H (74-99) mg/dL POC Glucose (mg/dL) 259 H 275 H (75-99) mg/dL Total Bilirubin 1.8 H (0.2-1.3) mg/dL AST 91 H (17-59) U/L ALT 701 H (21-72) U/L Total Protein 6.2 L (6.3-8.2) g/dL Albumin 3.4 L (3.5-5.0) g/dL 09/25/17 Range/Units 22:59 WBC (3.8-10.6) k/uL RBC (4.30-5.90) m/uL Hgb (13.0-17.5) gm/dL Hct (39.0-53.0) % RDW (11.5-15.5) % Plt Count (150-450) k/uL Neutrophils # (Manual) (1.3-7.7) k/uL Monocytes # (Manual) (0-1.0) k/uL Metamyelocytes # (Man) (0) k/uL Myelocytes # (Manual) (0) k/uL Nucleated RBCs (0-0) /100 WBC PT (9.0-12.0) sec INR (<1.2) Carbon Dioxide (22-30) mmol/L BUN (9-20) mg/dL Glucose (74-99) mg/dL POC Glucose (mg/dL) 236 H (75-99) mg/dL Total Bilirubin (0.2-1.3) mg/dL AST (17-59) U/L ALT (21-72) U/L Total Protein (6.3-8.2) g/dL Albumin (3.5-5.0) g/dL Microbiology - Last 24 Hours (Table) 09/20/17 23:26 Blood Culture - Preliminary Blood No Growth after 96 hours Laboratory Results WBC 22.9 k/uL (3.8-10.6) H 09/25/17 07:33 RBC 4.15 m/uL (4.30-5.90) L 09/25/17 07:33 Hgb 11.5 gm/dL (13.0-17.5) L 09/25/17 07:33 Hct 35.6 % (39.0-53.0) L 09/25/17 07:33 MCV 85.9 fL (80.0-100.0) 09/25/17 07:33 MCH 27.7 pg (25.0-35.0) 09/25/17 07:33 MCHC 32.2 g/dL (31.0-37.0) 09/25/17 07:33 RDW 16.6 % (11.5-15.5) H 09/25/17 07:33 Plt Count 101 k/uL (150-450) L 09/25/17 07:33 Neutrophils % (Manual) 75 % 09/25/17 07:33 Band Neutrophils % 6 % 09/25/17 07:33 Lymphocytes % (Manual) 5 % 09/25/17 07:33 Monocytes % (Manual) 13 % 09/25/17 07:33 Metamyelocytes % 1 % 09/25/17 07:33 Myelocytes % 1 % 09/25/17 07:33 Neutrophils # (Manual) 18.50 k/uL (1.3-7.7) H 09/25/17 07:33 Lymphocytes # (Manual) 1.15 k/uL (1.0-4.8) 09/25/17 07:33 Monocytes # (Manual) 2.98 k/uL (0-1.0) H 09/25/17 07:33 Metamyelocytes # (Man) 0.23 k/uL (0) H 09/25/17 07:33 Myelocytes # (Manual) 0.23 k/uL (0) H 09/25/17 07:33 Nucleated RBCs 1 /100 WBC (0-0) H 09/25/17 07:33 Manual Slide Review Performed 09/22/17 04:28 Toxic Vacuolation Present 09/21/17 04:40 Large Platelets Present 09/22/17 04:28 Polychromasia Present 09/25/17 07:33 Hypochromasia Slight 09/23/17 04:21 Poikilocytosis Slight 09/25/17 07:33 Anisocytosis Slight 09/25/17 07:33 Spherocytes Present 09/23/17 04:21 Target Cells Present 09/25/17 07:33 Ovalocytes Present 09/23/17 04:21 [place] Bodies Present 09/23/17 04:21 Fragmented RBCs Present 09/25/17 07:33 PT 13.0 sec (9.0-12.0) H 09/25/17 07:33 INR 1.4 (<1.2) H 09/25/17 07:33 APTT 24.6 sec (22.0-30.0) 09/23/17 04:21 D-Dimer 12.09 mg/L FEU (<0.60) H 09/20/17 23:26 Sodium 142 mmol/L (137-145) 09/25/17 07:33 Potassium 3.8 mmol/L (3.5-5.1) 09/25/17 07:33 Chloride 99 mmol/L (98-107) 09/25/17 07:33 Carbon Dioxide 33 mmol/L (22-30) H 09/25/17 07:33 Anion Gap 10 mmol/L 09/25/17 07:33 BUN 26 mg/dL (9-20) H 09/25/17 07:33 Creatinine 0.93 mg/dL (0.66-1.25) 09/25/17 07:33 Est GFR (CKD-EPI)AfAm >90 (>60 ml/min/1.73 sqM) 09/25/17 07:33 Est GFR (CKD-EPI)NonAf >90 (>60 ml/min/1.73 sqM) 09/25/17 07:33 Glucose 222 mg/dL (74-99) H 09/25/17 07:33 POC Glucose (mg/dL) 236 mg/dL (75-99) H 09/25/17 22:59 POC Glu [employer] Specialist Amanda Lam 09/25/17 22:[address] Glu mg/dL 183 09/21/17 11:52 Hemoglobin A1c 8.0 % (4.0-6.0) H 09/21/17 11:52 Lactic Ac Sepsis Rflx Y 09/22/17 04:56 Plasma Lactic Acid Alexei 2.8 mmol/L (0.7-2.0) H* 09/22/17 08:01 Calcium 8.5 mg/dL (8.4-10.2) 09/25/17 07:33 Phosphorus 3.1 mg/dL (2.5-4.5) 09/25/17 07:33 Magnesium 2.0 mg/dL (1.6-2.3) 09/25/17 07:33 Total Bilirubin 1.8 mg/dL (0.2-1.3) H 09/25/17 07:33 Conjugated Bilirubin 0.1 mg/dL (0.0-0.3) 09/20/17 23:26 Unconjugated Bilirubin 0.3 mg/dL (0.0-1.1) 09/20/17 23:26 Delta Bilirubin 0.9 mg/dL (0.0-0.2) H 09/20/17 23:26 AST 91 U/L (17-59) H 09/25/17 07:33 ALT 701 U/L (21-72) H 09/25/17 07:33 Alkaline Phosphatase 109 U/L (38-126) 09/25/17 07:33 Troponin I 0.025 ng/mL (0.000-0.034) 09/21/17 04:40 NT-Pro-B Natriuret Pep 8370 pg/mL 09/20/17 23:26 Total Protein 6.2 g/dL (6.3-8.2) L 09/25/17 07:33 Albumin 3.4 g/dL (3.5-5.0) L 09/25/17 07:33 Amylase 75 U/L (30-110) 09/23/17 04:21 Lipase 389 U/L (23-300) H 09/23/17 04:21 Urine Color Yellow 09/21/17 00:32 Urine Appearance Cloudy (Clear) 09/21/17 00:32 Urine pH 5.5 (5.0-8.0) 09/21/17 00:32 Ur Specific [place] Range 1.017 (1.001-1.035) 09/21/17 00:32 Urine Protein 1+ (Negative) H 09/21/17 00:32 Urine Glucose (UA) 2+ (Negative) H 09/21/17 00:32 Urine Ketones Trace (Negative) H 09/21/17 00:32 Urine Blood Negative (Negative) 09/21/17 00:32 Urine Nitrite Negative (Negative) 09/21/17 00:32 Urine Bilirubin Negative (Negative) 09/21/17 00:32 Urine Urobilinogen <2.0 mg/dL (<2.0) 09/21/17 00:32 Ur Leukocyte Esterase Negative (Negative) 09/21/17 00:32 Urine RBC 1 /hpf (0-5) 09/21/17 00:32 Urine WBC 6 /hpf (0-5) H 09/21/17 00:32 Hyaline Casts 8 /lpf (0-2) H 09/21/17 00:32 Urine Mucus Occasional /hpf (None) H 09/21/17 00:32 Vancomycin Trough <5.0 ug/mL 09/24/17 06:57 Acetone, Qual Negative (Negative) 09/20/17 23:26 IgG 547.0 mg/dL (700.0-1600.0) L 09/21/17 11:52 IgA 159.0 mg/dL (60.0-350.0) 09/21/17 11:52 IgM 20.4 mg/dL (40.0-280.0) L 09/21/17 11:52 Influenza Type A RNA Not Detected (Not Detectd) 09/20/17 23:40 Influenza Type B (PCR) Not Detected (Not Detectd) 09/20/17 23:40 Blood Type AB Positive 09/21/17 00:15 Blood Type Recheck No 09/21/17 00:15 Antibody Screen NEGATIVE 09/21/17 00:15 Spec Expiration Date 09/24/2017231409/21/17 00:15 Microbiology 09/20/17 23:26 Blood Blood Culture - Preliminary No Growth after 96 hours 09/21/17 00:32 Urine,Catheterized Urine Culture - Final Assessment and Plan (1) Dog bite Narrative/Plan: 52-year-old male presents to the emergency center several days after a dog bite that occurred to his left hand. The dog is a show dog and is well vaccinated. By circumstances it appears that the bite was a provoked event. The patient himself has had severe amounts of vaccine over time and believes he is up-to-date with his tetanus vaccine. 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 Antibiotic therapy is being altered to meropenem to ensure coverage as well as continue vancomycin for now until there is further data. Regretfully this pathogen is quite slow-growing immediately difficult to isolate in the near future. For now continue the supportive care and aggressive antibiotic therapy. The patient did have significant respiratory distress earlier was treated with BiPAP and is now on nasal cannula oxygen, may have an improvement from the diuresis. He is receiving intravenous heparin and this is being monitored closely from the pulmonary critical care service. The patient continues to have an elevated lactic acid, it is disproportionate and maybe markedly elevated due to his acute renal failure and may also be impacted by his underlying [id number] disease. If he has further fevers blood culture should be obtained. 09/22/2017 reveals the patient to be somewhat improved from 24 hours ago. He has less short of breath but continues to have some shortness of breath greater than his baseline. He is having no evidence of bleeding, questionable pulmonary critical care to consider discontinuation of the heparin given his significant shock liver that is not been noted. The patient the likelihood of a pulmonary embolus. Concerns to capnocytophagia infection, continue meropenem and vancomycin for now while cultures are prior cyst laboratory may need to hold onto cultures for extended period of time for final identification. Fortunately he seems to be doing somewhat better which may partially due to the large doses of steroids that is receiving for his pulmonary status. The IgG level is somewhat low and this will be discussed with the oncologist as to supplementation given his current significant level of illness. 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 09/23/2017 reveals the patient to have further improvement. His shortness of breath continues to improve. Concerns to the capnocytophagia infection and cultures from process but may take a while for any data. Fortunately he has had a good clinical response. Chest x-ray shows evidence of some minimal effusion no amy infiltrates. Pulmonary critical care is following. Prednisone dosing has been reduced is likely for the recent bump of his white blood cell count to 23. IgG level was low and receiving intravenous immunoglobulin today which may help his overall status. He started to recover from the shock liver event. In his acute renal failure is also improved. He is complaining of some headache, may do well with some Fioricet. 09/25/2017 patient does feel slightly better today. He is less short of breath and not having fevers. Headache improved with Fioricet. Still has some significant malaise as he is recovering from acute renal failure and shock liver. He is denying significant sputum production. Left hand continues to improve. No significant pain swelling or erythema are noted. Is an excellent response to current antibiotic therapy. When he is improved we'll transition to oral antibiotic therapy. 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
[2017-09-26] MEDS: methylPREDNISolone SOD SUCCI 125 MG/2 ML VIAL IV SCH ×5 (00:37→23:33)
[2017-09-26] MEDS: SALT AND SODA MOUTHWASH 1,000 ML PO SCH ×6 (00:40→23:33)
[2017-09-26] MEDS: IPRATROPIUM-ALBUTEROL 3 ML NEB INHALATION SCH ×6 (04:15→23:34)
[2017-09-26] MEDS: FUROSEMIDE 10 MG/ML 4 ML VIAL IV SCH ×2 (06:37→16:38)
[2017-09-26 07:25] LABS: Glucose,Whole Blood 251 mg/dL (75-99)
[2017-09-26] MEDS ORDERED: VANCOMYCIN TROUGH DUE 1 EACH MISC MISCELLANE ONE (08:00)
[2017-09-26] MEDS: INSULIN ASPART 100 UNIT/ML 1 ML 10 ML VIAL SQ SCH ×4 (08:14→21:11)
[2017-09-26] MEDS: ENOXAPARIN 30 MG/0.3 ML SYRINGE SQ SCH (08:14)
[2017-09-26] MEDS: guaiFENesin 600 MG TABLET.ER PO SCH ×2 (08:15→20:31)
[2017-09-26] MEDS: MEROPENEM 1 GM in SODIUM CHLORIDE 0.9% 100 ML IVPB SCH ×2 (08:15→20:31)
[2017-09-26] MEDS: PANTOPRAZOLE 40 MG TABLET PO SCH (08:15)
[2017-09-26] MEDS: CLOPIDOGREL 75 MG TAB PO SCH (08:15)
[2017-09-26 08:19] LABS: Anisocytosis Slight; HCT 34.8 % (39.0-53.0); HGB 11.6 gm/dL (13.0-17.5); MCH 28.2 pg (25.0-35.0); MCHC 33.3 g/dL (31.0-37.0); MCV 84.7 fL (80.0-100.0); Mean Platelet Volume 9.3; Platelet Count 137 k/uL (150-450); Poikilocytosis Slight; RBC 4.11 m/uL (4.30-5.90); RDW 16.2 % (11.5-15.5)
[2017-09-26 08:32] LABS: ALT 525 U/L (21-72); AST 50 U/L (17-59); Albumin 3.5 g/dL (3.5-5.0); Alkaline Phosphatase 112 U/L (38-126); Anion Gap 11 mmol/L; Blood Urea Nitrogen 25 mg/dL (9-20); Carbon Dioxide 32 mmol/L (22-30); Chloride 97 mmol/L (98-107); Glucose 252 mg/dL (74-99); Potassium 4.1 mmol/L (3.5-5.1); Sodium 140 mmol/L (137-145); Total Bilirubin 2.2 mg/dL (0.2-1.3); Total Protein 6.3 g/dL (6.3-8.2)
[2017-09-26 08:56] LABS: Band Neutrophils % 11 %; Lymphocytes # (M) 1.69 k/uL (1.0-4.8); Metamyelocytes # (M) 0.63 k/uL (0); Metamyelocytes % 3 %; Monocytes # (M) 0.84 k/uL (0-1.0); Myelocytes # (M) 1.27 k/uL (0); Myelocytes % 6 %; Neutrophils % (M) 70 %; Nucleated Red Blood Cells 7 /100 WBC (0-0); Total Cells Counted 200; WBC 21.1 k/uL (3.8-10.6)
[2017-09-26] MEDS: VANCOMYCIN 1,750 MG in SODIUM CHLORIDE 0.9% 500 ML IVPB SCH ×2 (09:22→21:15)
--- NOTE | 2017-09-26 11:32 | PN ---
PROGRESS NOTE The patient is seen for followup for acute kidney injury and hypervolemia. Currently, patient is maintained on IV Lasix secondary to severe edema and fluid overload. He states he is feeling better. His weight has not been checked. He has had good urine output. PHYSICAL EXAMINATION: On examination, blood pressure is 157/76, heart rate 80 per minute. Patient is afebrile. EXAMINATION OF THE HEART: S1, S2. EXAMINATION OF THE LUNGS: Bilateral breath sounds are heard. Decreased breath sounds at bases. Abdomen is soft, nontender. Examination of the lower extremities shows edema 1+ bilaterally. [employer] exam is grossly intact. LABS: Labs show sodium 140, potassium 4.1, BUN 25, serum creatinine 0.86. ASSESSMENT: 1. Acute kidney injury associated with hypotension hypoperfusion currently significantly improving. 2. Volume overload, maintained on IV Lasix which we can continue and switch to small dose of p.o. Lasix upon discharge at 20 mg p.o. daily. 3. Left hand dog bite, currently significantly improved. 4. History of chronic myeloid leukemia, status post bone marrow transplant. 5. Gastroesophageal reflux disease, maintained on Protonix. PLAN: Switch to oral Lasix at 20 mg daily at the time of discharge. May continue the IV Lasix for now. Monitor labs as outpatient in about 4 to 5 days time. MMODL / IJN: [id number] /
[2017-09-26 12:31] LABS: Glucose,Whole Blood 287 mg/dL (75-99)
--- NOTE | 2017-09-26 15:58 | P.PN ---
Subjective Progress Note Date: 09/26/17 this is a 52-year-old male, patient of Dr. Sweeney. He has a known past medical history of CML with a bone marrow transplant in 2006 and previous chemo treatment. He has been off of his antirejection medications for about a year. Patient reports that he did not want to take 50 pounds. He also has a known history of asthma, coronary disease with stent, hypertension, diabetes mellitus , hyperlipidemia, obstructive sleep apnea and peripheral vascular disease. Patient reports last about 4 days ago he received a dog bite to the left hand. The dog's family dog and up-to-date on immunizations. He reports that he had some swelling in the hand and redness around the puncture sites. No pus drainage. He reports that it seemed to be healing. Thursday patient started to not feel well. He was feverish with a temp of 102. Having chills and sweats. Also started to have some nausea and diarrhea. Decrease in appetite. He also started to have a cough with some phlegm production. Patient started to become concerned on Thursday still having temps and diarrhea. Came into the emergency room for further evaluation and treatment. Patient also had been reporting lower chest and abdomen discomfort. Patient had a white count 12.6 creatinine elevated at 3.20 and lactic acid elevated at 6.3 up to 8.5. Patient was found to be septic received 3 L of IV fluid boluses for his hypotension. Patient continued to become more short of breath and increased respiratory rate. BiPAP was ordered. Patient did not tolerate the BiPAP. He was transferred to the ICU. He is currently on 4 mics of Levophed. And on but broad-spectrum antibiotics which include Levaquin Vanco and cefuroxime. Critical care, infectious disease,oncology and nephrology has been consulted. Nephrology has ordered dose of IV Lasix with evidence of fluid overload earlier this morning. Patient also had an elevated d-dimer. Unable to do a CAT scan due to elevated creatinine. Patient currently cannot tolerate a VQ scan. Pulmonate service evaluated patient is on IV heparin. VQ scan and venous Dopplers have been ordered. CT of chest abdomen and pelvis is unremarkable. EKG showing a normal sinus rhythm with nonspecific T-wave abnormality 09/22/2017 patient currently in ICU. He was seen by Dr. Hill antibiotics were adjusted to meropenem and vancomycin was continued. Troponins were negative 2 sets. Doppler was negative for DVT. He remains on IV steroids for his asthma exacerbation. Creatinine has come down to 1.62. Chest x-ray showing some pulmonary venous congestion with out overt failure. Patient did have a rise in his liver enzymes AST 1000 491 and ALT 1513. He is complaining of some epigastric tenderness. Denies any alcohol abuse. He is off the Levophed. Case was discussed with pulmonarypractitioner will await their further recommendations. 09/24/2017 patient was transferred out of the ICU yesterday. His IgG levels were low and required IVIG.. Patient is more edematous throughout his body today. Having some shortness of breath but not requiring oxygen. He also is wheezy. White count has come down from 24.7 to 23.4. Liver enzymes are also trending down. Patient remains on IV antibiotics. Pending and Vanco. Nephrology has started patient on IV Lasix for his fluid overload. Patient denies any chest pain. Denies any nausea or vomiting. Reports having bowel movements. Denies any difficulty with urinating. 09/25/2017 patient still having significant generalized edema. Abdomen is slightly softer. Denies any chest pain or shortness of breath. Wheezing has resolved. Reports having bowel movements. Denies any difficulty with urinating. On 09/26/2017 patient is complaining of abdominal distention with some discomfort he has lower extremity edema otherwise he denies any complaints at this time there is no chest pain or shortness of breath there is no cough no nausea or vomiting and no urinary symptoms Objective - Vital Signs Vital signs: Vital Signs Temp 97.3 F L 09/26/17 15:00 Pulse 76 09/26/17 15:00 Resp 16 09/26/17 15:00 BP 158/74 09/26/17 15:00 Pulse Ox 95 09/26/17 15:00 Intake & Output 09/25/17 09/26/17 09/26/17 18:59 06:59 18:59 Intake Total 1480 Output Total 450 2100 Balance 1030 -2100 Intake: IV 500 Meropenem 1 gm In Sodium 100 Chloride 0.9% 100 ml @ 100 mls/hr IVPB Q12H JADEN Rx#:[id number] Sodium Chloride 0.9% 1, 400 000 ml @ 50 mls/hr IV . Q20H JADEN Rx#:[id number] Intake, IV Titration 500 Amount Vancomycin 1,750 mg In 500 Sodium Chloride 0.9% 500 ml @ 167 mls/hr IVPB Q12HR JADEN Rx#:[id number] Oral 480 Output: Urine 450 2100 Other: # Voids 3 3 # Bowel Movements 0 0 - Exam Head normocephalic Neck supple Lungs improvement in air movement. No wheezing Heart regular rate and rhythm S1-S2, no rub or gallop Abdomen is nontender but distended positive bowel sounds Extremities edema of bilateral lower and upper extremities. Neuro alert and orientated to 3 - Labs CBC & Chem 7: 09/26/17 07:46 09/26/17 07:46 Labs: Abnormal Lab Results - Last 24 Hours (Table) 09/25/17 09/25/17 09/26/17 Range/Units 17:16 22:59 07:21 WBC (3.8-10.6) k/uL RBC (4.30-5.90) m/uL Hgb (13.0-17.5) gm/dL Hct (39.0-53.0) % RDW (11.5-15.5) % Plt Count (150-450) k/uL Neutrophils # (Manual) (1.3-7.7) k/uL Metamyelocytes # (Man) (0) k/uL Myelocytes # (Manual) (0) k/uL Nucleated RBCs (0-0) /100 WBC Chloride (98-107) mmol/L Carbon Dioxide (22-30) mmol/L BUN (9-20) mg/dL Glucose (74-99) mg/dL POC Glucose (mg/dL) 275 H 236 H 251 H (75-99) mg/dL Total Bilirubin (0.2-1.3) mg/dL ALT (21-72) U/L 09/26/17 09/26/17 09/26/17 Range/Units 07:46 07:46 12:29 WBC 21.1 H (3.8-10.6) k/uL RBC 4.11 L (4.30-5.90) m/uL Hgb 11.6 L (13.0-17.5) gm/dL Hct 34.8 L (39.0-53.0) % RDW 16.2 H (11.5-15.5) % Plt Count 137 L (150-450) k/uL Neutrophils # (Manual) 17.00 H (1.3-7.7) k/uL Metamyelocytes # (Man) 0.63 H (0) k/uL Myelocytes # (Manual) 1.27 H (0) k/uL Nucleated RBCs 7 H (0-0) /100 WBC Chloride 97 L (98-107) mmol/L Carbon Dioxide 32 H (22-30) mmol/L BUN 25 H (9-20) mg/dL Glucose 252 H (74-99) mg/dL POC Glucose (mg/dL) 287 H (75-99) mg/dL Total Bilirubin 2.2 H (0.2-1.3) mg/dL ALT 525 H (21-72) U/L Microbiology - Last 24 Hours (Table) 09/20/17 23:26 Blood Culture - Preliminary Blood No Growth after 120 hours Assessment and Plan Plan: 1. Acute sepsis present on admission possibly secondary to dog bite to the left hand. Infectious disease has been consulted. Blood culture negative so far. Antibiotics adjusted per infectious disease patient currently on meropenem and vancomycin 2. Shortness of breath with chest pain and Elevated d-dimer: Unable to perform a CTA of the chest because of elevated creatinine. Patient unable to tolerate VQ scan at this time. Troponins negative 2 venous Doppler negative for DVT. Patient followed by pulmonary service. They started patient on Lovenox 30 mg daily 3. Acute kidney injury: Likely related to hypoperfusion due to patient's hypotension. As well as diarrhea. Creatinine 3.20 on admission. He has received IV fluids. Nephrology following closely. Creatinine has normalized 4. Hypotension patient receiving IV fluids. Patient is now off of Levophed 5. Acute asthma exacerbation patient was started on IV Solu-Medrol and bronchodilators. Pulmonary service following 6. Diarrhea . Patient had formed stool unable to complete stool study for C. diff 7. Diabetes mellitus type 2 : hyperglycemia related to the IV steroids. Patient currently on the Levemir and sliding scale. Continue to monitor 8. History of [id number]-bnri disease after bone marrow transplant. Patient has not been taking antirejection medication for over a year. Patient stopped taking them on his own. 9. History of CML status post chemotherapy and a bone marrow transplant in 2006. Oncology consulted 10. Mood disorder continue Lamictal 11. History of coronary artery disease with previous cardiac stent 12. Hyperkalemia: Resolved 13. Hypomagnesemia resolved 14. History of peripheral vascular disease with percutaneous superficial femoral artery arthrectomy and percutaneous transluminal balloon angioplasty of the left leg in July 2017 15. Metabolic acidosis secondary to lactic acidosis and renal failure. Neurology is placed patient on bicarb 16. Acute hypoxic respiratory initially requiring BiPAP. Currently on nasal cannula 17. Shocked liver: LFTs trending down . Lipitor and fenofibrate have been discontinued . 18. Thrombocytopenia: Continue to monitor 19. Low IgG level oncology has ordered IVIG 20. Fluid overload: Nephrology is ordered Lasix 40 mg IV every 12 hours. She should still having generalized edema with some improvement. continue diuresing 21. Moderate protein calorie malnutrition: At [facility] DVT prophylaxis lovenox and GI prophylaxis Protonix Consult physical therapy Patient improving gradually possible discharge in the next 48 hours
--- NOTE | 2017-09-26 16:02 | P.PN ---
Subjective Progress Note Date: 09/26/17 52-year-old male with a known history of chronic myelogenous leukemia diagnosed in 2003. The patient was treated with chemotherapy by 2005 requiring allogenic stem cell transplantation. Since that time he said difficulties with anhpm-vznfcv-fwei disease affecting his eyes and skin skin which has affected his quality of life. He has had plasmapheresis and ongoing follow-up with the [facility] in [place]. Apparently the patient stopped taking his suppressive medications nearly a year ago he was started taking 44 pills a day. Relates being off medications he actually felt a little better and has maintained himself off of medications, his is concerned with the patient is very self-directed. Apparently a few days ago the patient was admitted by a Josef, it is a show dog is up-to-date on all of his vaccines. He suffered a bite to his left hand. Local care was provided but despite that he's been having some increasing difficulties that included increasing fever with chills associated with nausea emesis increasing shortness of breath and feeling quite poorly overall. Consequently the patient did present to the emergency center and was admitted to the intensive care unit with evidence of sepsis and shock requiring vasopressor therapy and fluid resuscitation. With fluid resuscitation could become a bit more short of breath and did have a good fluid response to Lasix. With the rehydration he has had some electrolyte imbalance has had some muscle spasms is comfortable at the moment as far as the musculoskeletal difficulties. He does feel quite poorly overall is improved since admission possibly due to the high dose of methylprednisolone that has been started. August patient is feeling better , hypotension is resolved, respirations are improved, pain and discomfort is improved with muscle spasms. Still short of breath but improved, no hemoptysis. Pain to the left hand is improved still some swelling. 09/23/2017 patient is improved he's been transferred out of the intensive care unit. He is still having some cough and some shortness of breath but this is also improved. He has received a considerable amount of fluid resuscitation and hypotension is resolved but appears to have a bit of fluid in the bilateral bases. His IgG level is low. He'll receive intravenous immunoglobulin today. Relates the pain in his left hand is improved. But is having some discomfort so needs taking deep breaths with musculoskeletal pain 09/25/2017 continues improvement less short of breath and edema is improving. 09/26/2017 patient is less short of breath resting better today less discomforts , is noticing edema continues to improve. Objective - Vital Signs Vital signs: Vital Signs Temp 97.3 F L 09/26/17 15:00 Pulse 76 09/26/17 15:00 Resp 16 09/26/17 15:00 BP 158/74 09/26/17 15:00 Pulse Ox 95 09/26/17 15:00 Intake & Output 09/25/17 09/26/17 09/26/17 18:59 06:59 18:59 Intake Total 1480 Output Total 450 2100 Balance 1030 -2100 Intake: IV 500 Meropenem 1 gm In Sodium 100 Chloride 0.9% 100 ml @ 100 mls/hr IVPB Q12H JADEN Rx#:[id number] Sodium Chloride 0.9% 1, 400 000 ml @ 50 mls/hr IV . Q20H JADEN Rx#:[id number] Intake, IV Titration 500 Amount Vancomycin 1,750 mg In 500 Sodium Chloride 0.9% 500 ml @ 167 mls/hr IVPB Q12HR JADEN Rx#:[id number] Oral 480 Output: Urine 450 2100 Other: # Voids 3 3 # Bowel Movements 0 0 - Exam 52-year-old male seems to be somewhat uncomfortable HEENT: Anicteric conjunctiva irritated and dry nasal mucosa grossly intact without significant lesions, there is no thrush. Poor dentition. Place Neck: The neck is supple without significant lymphadenopathy or thyromegaly. Lungs: Symmetrical air entry is noted expiratory wheezes are scattered no amy bronchial sounds no dullness or egophony Heart: Regular rate and rhythm with an audible S1-S2, no S3 no S4. There is no significant murmur click or rub, PMI was nondisplaced. Abdomen: Positive bowel sounds soft minimal tenderness without palpable masses or organomegaly. There was no guarding or rebound. Extremities: The right upper extremity is intact without difficulty. The upper extremity as the dog bite left hand. There is some bruising around the lateral surface of the hand, which is now improved, but he has on heparin the INR has been elevated the scratch the base of the thumb is without bleeding. There is no ascending erythema and there is no lymphadenopathy epitrochlear or axillary this time. No other enlarged lymph nodes are noted is have chronic dryness to his skin Neuro: Awake alert oriented to person place and time. There are no acute new gross focal sensory motor deficits. - Labs CBC & Chem 7: 09/26/17 07:46 09/26/17 07:46 Labs: Abnormal Lab Results - Last 24 Hours (Table) 09/25/17 09/25/17 09/26/17 Range/Units 17:16 22:59 07:21 WBC (3.8-10.6) k/uL RBC (4.30-5.90) m/uL Hgb (13.0-17.5) gm/dL Hct (39.0-53.0) % RDW (11.5-15.5) % Plt Count (150-450) k/uL Neutrophils # (Manual) (1.3-7.7) k/uL Metamyelocytes # (Man) (0) k/uL Myelocytes # (Manual) (0) k/uL Nucleated RBCs (0-0) /100 WBC Chloride (98-107) mmol/L Carbon Dioxide (22-30) mmol/L BUN (9-20) mg/dL Glucose (74-99) mg/dL POC Glucose (mg/dL) 275 H 236 H 251 H (75-99) mg/dL Total Bilirubin (0.2-1.3) mg/dL ALT (21-72) U/L 09/26/17 09/26/17 09/26/17 Range/Units 07:46 07:46 12:29 WBC 21.1 H (3.8-10.6) k/uL RBC 4.11 L (4.30-5.90) m/uL Hgb 11.6 L (13.0-17.5) gm/dL Hct 34.8 L (39.0-53.0) % RDW 16.2 H (11.5-15.5) % Plt Count 137 L (150-450) k/uL Neutrophils # (Manual) 17.00 H (1.3-7.7) k/uL Metamyelocytes # (Man) 0.63 H (0) k/uL Myelocytes # (Manual) 1.27 H (0) k/uL Nucleated RBCs 7 H (0-0) /100 WBC Chloride 97 L (98-107) mmol/L Carbon Dioxide 32 H (22-30) mmol/L BUN 25 H (9-20) mg/dL Glucose 252 H (74-99) mg/dL POC Glucose (mg/dL) 287 H (75-99) mg/dL Total Bilirubin 2.2 H (0.2-1.3) mg/dL ALT 525 H (21-72) U/L Microbiology - Last 24 Hours (Table) 09/20/17 23:26 Blood Culture - Preliminary Blood No Growth after 120 hours Laboratory Results WBC 21.1 k/uL (3.8-10.6) H 09/26/17 07:46 RBC 4.11 m/uL (4.30-5.90) L 09/26/17 07:46 Hgb 11.6 gm/dL (13.0-17.5) L 09/26/17 07:46 Hct 34.8 % (39.0-53.0) L 09/26/17 07:46 MCV 84.7 fL (80.0-100.0) 09/26/17 07:46 MCH 28.2 pg (25.0-35.0) 09/26/17 07:46 MCHC 33.3 g/dL (31.0-37.0) 09/26/17 07:46 RDW 16.2 % (11.5-15.5) H 09/26/17 07:46 Plt Count 137 k/uL (150-450) L 09/26/17 07:46 Neutrophils % (Manual) 70 % 09/26/17 07:46 Band Neutrophils % 11 % 09/26/17 07:46 Lymphocytes % (Manual) 8 % 09/26/17 07:46 Monocytes % (Manual) 4 % 09/26/17 07:46 Metamyelocytes % 3 % 09/26/17 07:46 Myelocytes % 6 % 09/26/17 07:46 Neutrophils # (Manual) 17.00 k/uL (1.3-7.7) H 09/26/17 07:46 Lymphocytes # (Manual) 1.69 k/uL (1.0-4.8) 09/26/17 07:46 Monocytes # (Manual) 0.84 k/uL (0-1.0) 09/26/17 07:46 Metamyelocytes # (Man) 0.63 k/uL (0) H 09/26/17 07:46 Myelocytes # (Manual) 1.27 k/uL (0) H 09/26/17 07:46 Nucleated RBCs 7 /100 WBC (0-0) H 09/26/17 07:46 Manual Slide Review Performed 09/26/17 07:46 Toxic Vacuolation Present 09/21/17 04:40 Large Platelets Present 09/22/17 04:28 Polychromasia Present 09/25/17 07:33 Hypochromasia Slight 09/23/17 04:21 Poikilocytosis Slight 09/26/17 07:46 Anisocytosis Slight 09/26/17 07:46 Spherocytes Present 09/23/17 04:21 Target Cells Present 09/25/17 07:33 Ovalocytes Present 09/23/17 04:21 Damon-B And E Bodies Present 09/23/17 04:21 Fragmented RBCs Present 09/25/17 07:33 PT 13.0 sec (9.0-12.0) H 09/25/17 07:33 INR 1.4 (<1.2) H 09/25/17 07:33 APTT 24.6 sec (22.0-30.0) 09/23/17 04:21 D-Dimer 12.09 mg/L FEU (<0.60) H 09/20/17 23:26 Sodium 140 mmol/L (137-145) 09/26/17 07:46 Potassium 4.1 mmol/L (3.5-5.1) 09/26/17 07:46 Chloride 97 mmol/L (98-107) L 09/26/17 07:46 Carbon Dioxide 32 mmol/L (22-30) H 09/26/17 07:46 Anion Gap 11 mmol/L 09/26/17 07:46 BUN 25 mg/dL (9-20) H 09/26/17 07:46 Creatinine 0.86 mg/dL (0.66-1.25) 09/26/17 07:46 Est GFR (CKD-EPI)AfAm >90 (>60 ml/min/1.73 sqM) 09/26/17 07:46 Est GFR (CKD-EPI)NonAf >90 (>60 ml/min/1.73 sqM) 09/26/17 07:46 Glucose 252 mg/dL (74-99) H 09/26/17 07:46 POC Glucose (mg/dL) 287 mg/dL (75-99) H 09/26/17 12:29 POC Glu Psych Rn ID Venecia Gastelum 09/26/17 12:[address] Glu mg/dL 183 09/21/17 11:52 Hemoglobin A1c 8.0 % (4.0-6.0) H 09/21/17 11:52 Lactic Ac Sepsis Rflx Y 09/22/17 04:56 Plasma Lactic Acid Alexei 2.8 mmol/L (0.7-2.0) H* 09/22/17 08:01 Calcium 9.0 mg/dL (8.4-10.2) 09/26/17 07:46 Phosphorus 3.1 mg/dL (2.5-4.5) 09/25/17 07:33 Magnesium 2.0 mg/dL (1.6-2.3) 09/25/17 07:33 Total Bilirubin 2.2 mg/dL (0.2-1.3) H 09/26/17 07:46 Conjugated Bilirubin 0.1 mg/dL (0.0-0.3) 09/20/17 23:26 Unconjugated Bilirubin 0.3 mg/dL (0.0-1.1) 09/20/17 23:26 Delta Bilirubin 0.9 mg/dL (0.0-0.2) H 09/20/17 23:26 AST 50 U/L (17-59) 09/26/17 07:46 ALT 525 U/L (21-72) H 09/26/17 07:46 Alkaline Phosphatase 112 U/L (38-126) 09/26/17 07:46 Troponin I 0.025 ng/mL (0.000-0.034) 09/21/17 04:40 NT-Pro-B Natriuret Pep 8370 pg/mL 09/20/17 23:26 Total Protein 6.3 g/dL (6.3-8.2) 09/26/17 07:46 Albumin 3.5 g/dL (3.5-5.0) 09/26/17 07:46 Amylase 75 U/L (30-110) 09/23/17 04:21 Lipase 389 U/L (23-300) H 09/23/17 04:21 Urine Color Yellow 09/21/17 00:32 Urine Appearance Cloudy (Clear) 09/21/17 00:32 Urine pH 5.5 (5.0-8.0) 09/21/17 00:32 Ur Specific [place] 1.017 (1.001-1.035) 09/21/17 00:32 Urine Protein 1+ (Negative) H 09/21/17 00:32 Urine Glucose (UA) 2+ (Negative) H 09/21/17 00:32 Urine Ketones Trace (Negative) H 09/21/17 00:32 Urine Blood Negative (Negative) 09/21/17 00:32 Urine Nitrite Negative (Negative) 09/21/17 00:32 Urine Bilirubin Negative (Negative) 09/21/17 00:32 Urine Urobilinogen <2.0 mg/dL (<2.0) 09/21/17 00:32 Ur Leukocyte Esterase Negative (Negative) 09/21/17 00:32 Urine RBC 1 /hpf (0-5) 09/21/17 00:32 Urine WBC 6 /hpf (0-5) H 09/21/17 00:32 Hyaline Casts 8 /lpf (0-2) H 09/21/17 00:32 Urine Mucus Occasional /hpf (None) H 09/21/17 00:32 Vancomycin Trough 14.3 ug/mL 09/26/17 07:46 Acetone, Qual Negative (Negative) 09/20/17 23:26 IgG 547.0 mg/dL (700.0-1600.0) L 09/21/17 11:52 IgA 159.0 mg/dL (60.0-350.0) 09/21/17 11:52 IgM 20.4 mg/dL (40.0-280.0) L 09/21/17 11:52 Influenza Type A RNA Not Detected (Not Detectd) 09/20/17 23:40 Influenza Type B (PCR) Not Detected (Not Detectd) 09/20/17 23:40 Blood Type AB Positive 09/21/17 00:15 Blood Type Recheck No 09/21/17 00:15 Antibody Screen NEGATIVE 09/21/17 00:15 Spec Expiration Date 09/24/2017 - 5682 09/21/17 00:15 Microbiology 09/20/17 23:26 Blood Blood Culture - Preliminary No Growth after 120 hours 09/21/17 00:32 Urine,Catheterized Urine Culture - Final Assessment and Plan (1) Dog bite Narrative/Plan: 52-year-old male presents to the emergency center several days after a dog bite that occurred to his left hand. The dog is a show dog and is well vaccinated. By circumstances it appears that the bite was a provoked event. The patient himself has had severe amounts of vaccine over time and believes he is up-to-date with his tetanus vaccine. 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 Antibiotic therapy is being altered to meropenem to ensure coverage as well as continue vancomycin for now until there is further data. Regretfully this pathogen is quite slow-growing immediately difficult to isolate in the near future. For now continue the supportive care and aggressive antibiotic therapy. The patient did have significant respiratory distress earlier was treated with BiPAP and is now on nasal cannula oxygen, may have an improvement from the diuresis. He is receiving intravenous heparin and this is being monitored closely from the pulmonary critical care service. The patient continues to have an elevated lactic acid, it is disproportionate and maybe markedly elevated due to his acute renal failure and may also be impacted by his underlying [id number] disease. If he has further fevers blood culture should be obtained. 09/22/2017 reveals the patient to be somewhat improved from 24 hours ago. He has less short of breath but continues to have some shortness of breath greater than his baseline. He is having no evidence of bleeding, questionable pulmonary critical care to consider discontinuation of the heparin given his significant shock liver that is not been noted. The patient the likelihood of a pulmonary embolus. Concerns to capnocytophagia infection, continue meropenem and vancomycin for now while cultures are prior cyst laboratory may need to hold onto cultures for extended period of time for final identification. Fortunately he seems to be doing somewhat better which may partially due to the large doses of steroids that is receiving for his pulmonary status. The IgG level is somewhat low and this will be discussed with the oncologist as to supplementation given his current significant level of illness. 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 09/23/2017 reveals the patient to have further improvement. His shortness of breath continues to improve. Concerns to the capnocytophagia infection and cultures from process but may take a while for any data. Fortunately he has had a good clinical response. Chest x-ray shows evidence of some minimal effusion no amy infiltrates. Pulmonary critical care is following. Prednisone dosing has been reduced is likely for the recent bump of his white blood cell count to 23. IgG level was low and receiving intravenous immunoglobulin today which may help his overall status. He started to recover from the shock liver event. In his acute renal failure is also improved. He is complaining of some headache, may do well with some Fioricet. 09/25/2017 patient does feel slightly better today. He is less short of breath and not having fevers. Headache improved with Fioricet. Still has some significant malaise as he is recovering from acute renal failure and shock liver. He is denying significant sputum production. Left hand continues to improve. No significant pain swelling or erythema are noted. Is an excellent response to current antibiotic therapy. When he is improved we'll transition to oral antibiotic therapy. 09/26/2017 the patient is feeling better today. Shortness of breath and fever started to improve. There is a persistent leukocytosis but he is on Solu-Medrol 60 push every [address] at this point in time but his pulmonary status has improved. The acute renal failure has resolved and his creatinine is 0.86. The shock liver has improved of the AST ALT have improved. His total bilirubin was increased to 2.2 and is being monitored. The significant infection to the left hand has continued to have improvement. As his overall condition improves the plan will be to transition to oral antibiotic therapy to complete the treatment of this infection to his left hand status post dog bite that was complicated, with significant sepsis and shock. 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
[2017-09-26 17:23] LABS: Glucose,Whole Blood 322 mg/dL (75-99)
[2017-09-26] MEDS ORDERED: INSULIN ASPART 100 UNIT/ML 1 ML 10 ML VIAL SQ ONE (17:39)
[2017-09-26] MEDS: lamoTRIgine 25 MG TAB PO SCH (20:31)
[2017-09-26] MEDS ORDERED: INSULIN DETEMIR 100 UNIT/ML 10 ML VIAL SQ SCH (21:00)
[2017-09-26 21:05] LABS: Glucose,Whole Blood 299 mg/dL (75-99)
[2017-09-27] MEDS: BUTALB/APAP/CAFF 50-325-40MG TAB PO PRN (02:40)
[2017-09-27] MEDS: IPRATROPIUM-ALBUTEROL 3 ML NEB INHALATION SCH ×5 (03:17→20:11)
[2017-09-27] MEDS: methylPREDNISolone SOD SUCCI 125 MG/2 ML VIAL IV SCH ×2 (05:53→12:38)
[2017-09-27] MEDS: FUROSEMIDE 10 MG/ML 4 ML VIAL IV SCH ×2 (05:53→17:20)
[2017-09-27] MEDS: SALT AND SODA MOUTHWASH 1,000 ML PO SCH ×4 (05:53→21:07)
[2017-09-27 07:03] LABS: Glucose,Whole Blood 230 mg/dL (75-99)
[2017-09-27] MEDS: INSULIN ASPART 100 UNIT/ML 1 ML 10 ML VIAL SQ SCH ×4 (07:53→21:08)
[2017-09-27] MEDS: CLOPIDOGREL 75 MG TAB PO SCH (07:53)
[2017-09-27] MEDS: PANTOPRAZOLE 40 MG TABLET PO SCH (07:53)
[2017-09-27] MEDS: ENOXAPARIN 30 MG/0.3 ML SYRINGE SQ SCH (07:53)
[2017-09-27] MEDS: MEROPENEM 1 GM in SODIUM CHLORIDE 0.9% 100 ML IVPB SCH ×2 (07:53→19:14)
[2017-09-27] MEDS: guaiFENesin 600 MG TABLET.ER PO SCH ×2 (07:53→21:07)
[2017-09-27] MEDS: VANCOMYCIN 1,750 MG in SODIUM CHLORIDE 0.9% 500 ML IVPB SCH ×2 (09:11→21:07)
[2017-09-27 10:14] LABS: ALT 366 U/L (21-72); AST 41 U/L (17-59); Albumin 3.4 g/dL (3.5-5.0); Alkaline Phosphatase 192 U/L (38-126); Anion Gap 13 mmol/L; Blood Urea Nitrogen 26 mg/dL (9-20); Calcium 9.1 mg/dL (8.4-10.2); Carbon Dioxide 29 mmol/L (22-30); Chloride 94 mmol/L (98-107); Glucose 332 mg/dL (74-99); Sodium 136 mmol/L (137-145); Total Bilirubin 1.5 mg/dL (0.2-1.3); Total Protein 5.9 g/dL (6.3-8.2)
[2017-09-27 10:19] LABS: Anisocytosis Slight; HCT 35.9 % (39.0-53.0); HGB 11.8 gm/dL (13.0-17.5); MCH 28.6 pg (25.0-35.0); MCHC 32.9 g/dL (31.0-37.0); MCV 86.9 fL (80.0-100.0); Mean Platelet Volume 8.8; Platelet Count 205 k/uL (150-450); Poikilocytosis Slight; RBC 4.13 m/uL (4.30-5.90); RDW 17.4 % (11.5-15.5)
[2017-09-27 11:00] LABS: Band Neutrophils % 7 %; Metamyelocytes % 2 %; Myelocytes % 2 %; Neutrophils % (M) 78 %; Nucleated Red Blood Cells 4 /100 WBC (0-0); Total Cells Counted 200
[2017-09-27 11:01] LABS: Lymphocytes # (M) 1.84 k/uL (1.0-4.8); Metamyelocytes # (M) 0.46 k/uL (0); Monocytes # (M) 0.92 k/uL (0-1.0); Myelocytes # (M) 0.46 k/uL (0)
[2017-09-27 11:39] LABS: Glucose,Whole Blood 283 mg/dL (75-99)
--- NOTE | 2017-09-27 15:22 | P.PN ---
Subjective Progress Note Date: 09/27/17 52-year-old male with a known history of chronic myelogenous leukemia diagnosed in 2003. The patient was treated with chemotherapy by 2005 requiring allogenic stem cell transplantation. Since that time he said difficulties with busuh-slqgep-uryu disease affecting his eyes and skin skin which has affected his quality of life. He has had plasmapheresis and ongoing follow-up with the [facility] in [place]. Apparently the patient stopped taking his suppressive medications nearly a year ago he was started taking 44 pills a day. Relates being off medications he actually felt a little better and has maintained himself off of medications, his is concerned with the patient is very self-directed. Apparently a few days ago the patient was admitted by a Josef, it is a show dog is up-to-date on all of his vaccines. He suffered a bite to his left hand. Local care was provided but despite that he's been having some increasing difficulties that included increasing fever with chills associated with nausea emesis increasing shortness of breath and feeling quite poorly overall. Consequently the patient did present to the emergency center and was admitted to the intensive care unit with evidence of sepsis and shock requiring vasopressor therapy and fluid resuscitation. With fluid resuscitation could become a bit more short of breath and did have a good fluid response to Lasix. With the rehydration he has had some electrolyte imbalance has had some muscle spasms is comfortable at the moment as far as the musculoskeletal difficulties. He does feel quite poorly overall is improved since admission possibly due to the high dose of methylprednisolone that has been started. August patient is feeling better , hypotension is resolved, respirations are improved, pain and discomfort is improved with muscle spasms. Still short of breath but improved, no hemoptysis. Pain to the left hand is improved still some swelling. 09/23/2017 patient is improved he's been transferred out of the intensive care unit. He is still having some cough and some shortness of breath but this is also improved. He has received a considerable amount of fluid resuscitation and hypotension is resolved but appears to have a bit of fluid in the bilateral bases. His IgG level is low. He'll receive intravenous immunoglobulin today. Relates the pain in his left hand is improved. But is having some discomfort so needs taking deep breaths with musculoskeletal pain 09/25/2017 continues improvement less short of breath and edema is improving. 09/26/2017 patient is less short of breath resting better today less discomforts , is noticing edema continues to improve. 09/27/2017 reveals the patient be feeling better today. As he continues to progress is for discharge home in the next few days. He is now much less short of breath and is much less uncomfortable. Objective - Vital Signs Vital signs: Vital Signs Temp 96.9 F L 09/27/17 15:00 Pulse 84 09/27/17 15:00 Resp 16 09/27/17 15:00 BP 147/90 09/27/17 15:00 Pulse Ox 94 L 09/27/17 15:00 Intake & Output 09/26/17 09/27/17 09/27/17 18:59 06:59 18:59 Intake Total 600 Output Total 800 Balance -800 600 Weight 102 kg Intake: IV 100 Meropenem 1 gm In Sodium 100 Chloride 0.9% 100 ml @ 100 mls/hr IVPB Q12H JADEN Rx#:[id number] Intake, IV Titration 500 Amount Vancomycin 1,750 mg In 500 Sodium Chloride 0.9% 500 ml @ 167 mls/hr IVPB Q12HR JADEN Rx#:[id number] Output: Urine 800 Other: # Voids 3 3 4 # Bowel Movements 0 - Exam 52-year-old male seems to be somewhat uncomfortable HEENT: Anicteric conjunctiva irritated and dry nasal mucosa grossly intact without significant lesions, there is no thrush. Poor dentition. Place Neck: The neck is supple without significant lymphadenopathy or thyromegaly. Lungs: Symmetrical air entry is noted expiratory wheezes are scattered no amy bronchial sounds no dullness or egophony Heart: Regular rate and rhythm with an audible S1-S2, no S3 no S4. There is no significant murmur click or rub, PMI was nondisplaced. Abdomen: Positive bowel sounds soft minimal tenderness without palpable masses or organomegaly. There was no guarding or rebound. Extremities: The right upper extremity is intact without difficulty. The upper extremity as the dog bite left hand. There is some bruising around the lateral surface of the hand, which is now improved, but he has on heparin the INR has been elevated the scratch the base of the thumb is without bleeding. There is no ascending erythema and there is no lymphadenopathy epitrochlear or axillary this time. No other enlarged lymph nodes are noted is have chronic dryness to his skin Neuro: Awake alert oriented to person place and time. There are no acute new gross focal sensory motor deficits. - Labs CBC & Chem 7: 09/27/17 09:32 09/27/17 09:32 Labs: Abnormal Lab Results - Last 24 Hours (Table) 09/26/17 09/26/17 09/27/17 Range/Units 17:20 21:01 06:59 WBC (3.8-10.6) k/uL RBC (4.30-5.90) m/uL Hgb (13.0-17.5) gm/dL Hct (39.0-53.0) % RDW (11.5-15.5) % Neutrophils # (Manual) (1.3-7.7) k/uL Metamyelocytes # (Man) (0) k/uL Myelocytes # (Manual) (0) k/uL Nucleated RBCs (0-0) /100 WBC Sodium (137-145) mmol/L Chloride (98-107) mmol/L BUN (9-20) mg/dL Glucose (74-99) mg/dL POC Glucose (mg/dL) 322 H 299 H 230 H (75-99) mg/dL Total Bilirubin (0.2-1.3) mg/dL ALT (21-72) U/L Alkaline Phosphatase (38-126) U/L Total Protein (6.3-8.2) g/dL Albumin (3.5-5.0) g/dL 09/27/17 09/27/17 09/27/17 Range/Units 09:32 09:32 11:37 WBC 23.0 H (3.8-10.6) k/uL RBC 4.13 L (4.30-5.90) m/uL Hgb 11.8 L (13.0-17.5) gm/dL Hct 35.9 L (39.0-53.0) % RDW 17.4 H (11.5-15.5) % Neutrophils # (Manual) 19.50 H (1.3-7.7) k/uL Metamyelocytes # (Man) 0.46 H (0) k/uL Myelocytes # (Manual) 0.46 H (0) k/uL Nucleated RBCs 4 H (0-0) /100 WBC Sodium 136 L (137-145) mmol/L Chloride 94 L (98-107) mmol/L BUN 26 H (9-20) mg/dL Glucose 332 H (74-99) mg/dL POC Glucose (mg/dL) 283 H (75-99) mg/dL Total Bilirubin 1.5 H (0.2-1.3) mg/dL ALT 366 H (21-72) U/L Alkaline Phosphatase 192 H (38-126) U/L Total Protein 5.9 L (6.3-8.2) g/dL Albumin 3.4 L (3.5-5.0) g/dL Microbiology - Last 24 Hours (Table) 09/20/17 23:26 Blood Culture - Final Blood No Growth after 144 hours Laboratory Results WBC 23.0 k/uL (3.8-10.6) H 09/27/17 09:32 RBC 4.13 m/uL (4.30-5.90) L 09/27/17 09:32 Hgb 11.8 gm/dL (13.0-17.5) L 09/27/17 09:32 Hct 35.9 % (39.0-53.0) L 09/27/17 09:32 MCV 86.9 fL (80.0-100.0) 09/27/17 09:32 MCH 28.6 pg (25.0-35.0) 09/27/17 09:32 MCHC 32.9 g/dL (31.0-37.0) 09/27/17 09:32 RDW 17.4 % (11.5-15.5) H 09/27/17 09:32 Plt Count 205 k/uL (150-450) 09/27/17 09:32 Neutrophils % (Manual) 78 % 09/27/17 09:32 Band Neutrophils % 7 % 09/27/17 09:32 Lymphocytes % (Manual) 8 % 09/27/17 09:32 Monocytes % (Manual) 4 % 09/27/17 09:32 Metamyelocytes % 2 % 09/27/17 09:32 Myelocytes % 2 % 09/27/17 09:32 Neutrophils # (Manual) 19.50 k/uL (1.3-7.7) H 09/27/17 09:32 Lymphocytes # (Manual) 1.84 k/uL (1.0-4.8) 09/27/17 09:32 Monocytes # (Manual) 0.92 k/uL (0-1.0) 09/27/17 09:32 Metamyelocytes # (Man) 0.46 k/uL (0) H 09/27/17 09:32 Myelocytes # (Manual) 0.46 k/uL (0) H 09/27/17 09:32 Nucleated RBCs 4 /100 WBC (0-0) H 09/27/17 09:32 Manual Slide Review Performed 09/27/17 09:32 Toxic Vacuolation Present 09/21/17 04:40 Large Platelets Present 09/22/17 04:28 Polychromasia Present 09/25/17 07:33 Hypochromasia Slight 09/23/17 04:21 Poikilocytosis Slight 09/27/17 09:32 Anisocytosis Slight 09/27/17 09:32 Spherocytes Present 09/23/17 04:21 Target Cells Present 09/25/17 07:33 Ovalocytes Present 09/23/17 04:21 Damon-E[place] Bodies Present 09/23/17 04:21 Fragmented RBCs Present 09/25/17 07:33 PT 13.0 sec (9.0-12.0) H 09/25/17 07:33 INR 1.4 (<1.2) H 09/25/17 07:33 APTT 24.6 sec (22.0-30.0) 09/23/17 04:21 D-Dimer 12.09 mg/L FEU (<0.60) H 09/20/17 23:26 Sodium 136 mmol/L (137-145) L 09/27/17 09:32 Potassium 4.0 mmol/L (3.5-5.1) 09/27/17 09:32 Chloride 94 mmol/L (98-107) L 09/27/17 09:32 Carbon Dioxide 29 mmol/L (22-30) 09/27/17 09:32 Anion Gap 13 mmol/L 09/27/17 09:32 BUN 26 mg/dL (9-20) H 09/27/17 09:32 Creatinine 0.82 mg/dL (0.66-1.25) 09/27/17 09:32 Est GFR (CKD-EPI)AfAm >90 (>60 ml/min/1.73 sqM) 09/27/17 09:32 Est GFR (CKD-EPI)NonAf >90 (>60 ml/min/1.73 sqM) 09/27/17 09:32 Glucose 332 mg/dL (74-99) H 09/27/17 09:32 POC Glucose (mg/dL) 283 mg/dL (75-99) H 09/27/17 11:37 POC Glu Film Loader ID Venecia Gastelum 09/27/17 11:[address] Glu mg/dL 183 09/21/17 11:52 Hemoglobin A1c 8.0 % (4.0-6.0) H 09/21/17 11:52 Lactic Ac Sepsis Rflx Y 09/22/17 04:56 Plasma Lactic Acid Alexei 2.8 mmol/L (0.7-2.0) H* 09/22/17 08:01 Calcium 9.1 mg/dL (8.4-10.2) 09/27/17 09:32 Phosphorus 3.1 mg/dL (2.5-4.5) 09/25/17 07:33 Magnesium 2.0 mg/dL (1.6-2.3) 09/25/17 07:33 Total Bilirubin 1.5 mg/dL (0.2-1.3) H 09/27/17 09:32 Conjugated Bilirubin 0.1 mg/dL (0.0-0.3) 09/20/17 23:26 Unconjugated Bilirubin 0.3 mg/dL (0.0-1.1) 09/20/17 23:26 Delta Bilirubin 0.9 mg/dL (0.0-0.2) H 09/20/17 23:26 AST 41 U/L (17-59) 09/27/17 09:32 ALT 366 U/L (21-72) H 09/27/17 09:32 Alkaline Phosphatase 192 U/L (38-126) H 09/27/17 09:32 Troponin I 0.025 ng/mL (0.000-0.034) 09/21/17 04:40 NT-Pro-B Natriuret Pep 8370 pg/mL 09/20/17 23:26 Total Protein 5.9 g/dL (6.3-8.2) L 09/27/17 09:32 Albumin 3.4 g/dL (3.5-5.0) L 09/27/17 09:32 Amylase 75 U/L (30-110) 09/23/17 04:21 Lipase 389 U/L (23-300) H 09/23/17 04:21 Urine Color Yellow 09/21/17 00:32 Urine Appearance Cloudy (Clear) 09/21/17 00:32 Urine pH 5.5 (5.0-8.0) 09/21/17 00:32 Ur Specific [place] 1.017 (1.001-1.035) 09/21/17 00:32 Urine Protein 1+ (Negative) H 09/21/17 00:32 Urine Glucose (UA) 2+ (Negative) H 09/21/17 00:32 Urine Ketones Trace (Negative) H 09/21/17 00:32 Urine Blood Negative (Negative) 09/21/17 00:32 Urine Nitrite Negative (Negative) 09/21/17 00:32 Urine Bilirubin Negative (Negative) 09/21/17 00:32 Urine Urobilinogen <2.0 mg/dL (<2.0) 09/21/17 00:32 Ur Leukocyte Esterase Negative (Negative) 09/21/17 00:32 Urine RBC 1 /hpf (0-5) 09/21/17 00:32 Urine WBC 6 /hpf (0-5) H 09/21/17 00:32 Hyaline Casts 8 /lpf (0-2) H 09/21/17 00:32 Urine Mucus Occasional /hpf (None) H 09/21/17 00:32 Vancomycin Trough 14.3 ug/mL 09/26/17 07:46 Acetone, Qual Negative (Negative) 09/20/17 23:26 IgG 547.0 mg/dL (700.0-1600.0) L 09/21/17 11:52 IgA 159.0 mg/dL (60.0-350.0) 09/21/17 11:52 IgM 20.4 mg/dL (40.0-280.0) L 09/21/17 11:52 Influenza Type A RNA Not Detected (Not Detectd) 09/20/17 23:40 Influenza Type B (PCR) Not Detected (Not Detectd) 09/20/17 23:40 Blood Type AB Positive 09/21/17 00:15 Blood Type Recheck No 09/21/17 00:15 Antibody Screen NEGATIVE 09/21/17 00:15 Spec Expiration Date 09/24/2017 - 2315 09/21/17 00:15 Microbiology 09/20/17 23:26 Blood Blood Culture - Final No Growth after 144 hours 09/21/17 00:32 Urine,Catheterized Urine Culture - Final Assessment and Plan (1) Dog bite Narrative/Plan: 52-year-old male presents to the emergency center several days after a dog bite that occurred to his left hand. The dog is a show dog and is well vaccinated. By circumstances it appears that the bite was a provoked event. The patient himself has had severe amounts of vaccine over time and believes he is up-to-date with his tetanus vaccine. 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 Antibiotic therapy is being altered to meropenem to ensure coverage as well as continue vancomycin for now until there is further data. Regretfully this pathogen is quite slow-growing immediately difficult to isolate in the near future. For now continue the supportive care and aggressive antibiotic therapy. The patient did have significant respiratory distress earlier was treated with BiPAP and is now on nasal cannula oxygen, may have an improvement from the diuresis. He is receiving intravenous heparin and this is being monitored closely from the pulmonary critical care service. The patient continues to have an elevated lactic acid, it is disproportionate and maybe markedly elevated due to his acute renal failure and may also be impacted by his underlying [id number]-lctv disease. If he has further fevers blood culture should be obtained. 09/22/2017 reveals the patient to be somewhat improved from 24 hours ago. He has less short of breath but continues to have some shortness of breath greater than his baseline. He is having no evidence of bleeding, questionable pulmonary critical care to consider discontinuation of the heparin given his significant shock liver that is not been noted. The patient the likelihood of a pulmonary embolus. Concerns to capnocytophagia infection, continue meropenem and vancomycin for now while cultures are prior cyst laboratory may need to hold onto cultures for extended period of time for final identification. Fortunately he seems to be doing somewhat better which may partially due to the large doses of steroids that is receiving for his pulmonary status. The IgG level is somewhat low and this will be discussed with the oncologist as to supplementation given his current significant level of illness. 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 09/23/2017 reveals the patient to have further improvement. His shortness of breath continues to improve. Concerns to the capnocytophagia infection and cultures from process but may take a while for any data. Fortunately he has had a good clinical response. Chest x-ray shows evidence of some minimal effusion no amy infiltrates. Pulmonary critical care is following. Prednisone dosing has been reduced is likely for the recent bump of his white blood cell count to 23. IgG level was low and receiving intravenous immunoglobulin today which may help his overall status. He started to recover from the shock liver event. In his acute renal failure is also improved. He is complaining of some headache, may do well with some Fioricet. 09/25/2017 patient does feel slightly better today. He is less short of breath and not having fevers. Headache improved with Fioricet. Still has some significant malaise as he is recovering from acute renal failure and shock liver. He is denying significant sputum production. Left hand continues to improve. No significant pain swelling or erythema are noted. Is an excellent response to current antibiotic therapy. When he is improved we'll transition to oral antibiotic therapy. 09/26/2017 the patient is feeling better today. Shortness of breath and fever started to improve. There is a persistent leukocytosis but he is on Solu-Medrol 60 push every [address] at this point in time but his pulmonary status has improved. The acute renal failure has resolved and his creatinine is 0.86. The shock liver has improved of the AST ALT have improved. His total bilirubin was increased to 2.2 and is being monitored. The significant infection to the left hand has continued to have improvement. As his overall condition improves the plan will be to transition to oral antibiotic therapy to complete the treatment of this infection to his left hand status post dog bite that was complicated, with significant sepsis and shock. 09/27/2017 shows the patient to be further improved. Shortness of breath is nearing his baseline and is no longer having fever. His creatinine has recovered and his bilirubin is down to 1.5. The shock liver continues to improve. The left hand site continues to have a good recovery. We'll plan on oral antibiotic therapy at discharge will request moxifloxacin if not possible then clindamycin is the second choice. He'll need to work with the pulmonary group as far as the taper of the prednisone. 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
--- NOTE | 2017-09-27 15:35 | P.PN ---
Subjective Progress Note Date: 09/27/17 this is a 52-year-old male, patient of Dr. Sweeney. He has a known past medical history of CML with a bone marrow transplant in 2006 and previous chemo treatment. He has been off of his antirejection medications for about a year. Patient reports that he did not want to take 50 pounds. He also has a known history of asthma, coronary disease with stent, hypertension, diabetes mellitus , hyperlipidemia, obstructive sleep apnea and peripheral vascular disease. Patient reports last about 4 days ago he received a dog bite to the left hand. The dog's family dog and up-to-date on immunizations. He reports that he had some swelling in the hand and redness around the puncture sites. No pus drainage. He reports that it seemed to be healing. Thursday patient started to not feel well. He was feverish with a temp of 102. Having chills and sweats. Also started to have some nausea and diarrhea. Decrease in appetite. He also started to have a cough with some phlegm production. Patient started to become concerned on Thursday still having temps and diarrhea. Came into the emergency room for further evaluation and treatment. Patient also had been reporting lower chest and abdomen discomfort. Patient had a white count 12.6 creatinine elevated at 3.20 and lactic acid elevated at 6.3 up to 8.5. Patient was found to be septic received 3 L of IV fluid boluses for his hypotension. Patient continued to become more short of breath and increased respiratory rate. BiPAP was ordered. Patient did not tolerate the BiPAP. He was transferred to the ICU. He is currently on 4 mics of Levophed. And on but broad-spectrum antibiotics which include Levaquin Vanco and cefuroxime. Critical care, infectious disease,oncology and nephrology has been consulted. Nephrology has ordered dose of IV Lasix with evidence of fluid overload earlier this morning. Patient also had an elevated d-dimer. Unable to do a CAT scan due to elevated creatinine. Patient currently cannot tolerate a VQ scan. Pulmonate service evaluated patient is on IV heparin. VQ scan and venous Dopplers have been ordered. CT of chest abdomen and pelvis is unremarkable. EKG showing a normal sinus rhythm with nonspecific T-wave abnormality 09/22/2017 patient currently in ICU. He was seen by Dr. Hill antibiotics were adjusted to meropenem and vancomycin was continued. Troponins were negative 2 sets. Doppler was negative for DVT. He remains on IV steroids for his asthma exacerbation. Creatinine has come down to 1.62. Chest x-ray showing some pulmonary venous congestion with out overt failure. Patient did have a rise in his liver enzymes AST 1000 491 and ALT 1513. He is complaining of some epigastric tenderness. Denies any alcohol abuse. He is off the Levophed. Case was discussed with pulmonarypractitioner will await their further recommendations. 09/24/2017 patient was transferred out of the ICU yesterday. His IgG levels were low and required IVIG.. Patient is more edematous throughout his body today. Having some shortness of breath but not requiring oxygen. He also is wheezy. White count has come down from 24.7 to 23.4. Liver enzymes are also trending down. Patient remains on IV antibiotics. Pending and Vanco. Nephrology has started patient on IV Lasix for his fluid overload. Patient denies any chest pain. Denies any nausea or vomiting. Reports having bowel movements. Denies any difficulty with urinating. 09/25/2017 patient still having significant generalized edema. Abdomen is slightly softer. Denies any chest pain or shortness of breath. Wheezing has resolved. Reports having bowel movements. Denies any difficulty with urinating. On 09/26/2017 patient is complaining of abdominal distention with some discomfort he has lower extremity edema otherwise he denies any complaints at this time there is no chest pain or shortness of breath there is no cough no nausea or vomiting and no urinary symptoms On 09/27/2017 patient is feeling better he is alert and oriented 3 in no apparent distress abdominal discomfort and distention has improved patient denies any chest pain or shortness of breath no cough no fever or chills no nausea or vomiting and no urinary symptoms Objective - Vital Signs Vital signs: Vital Signs Temp 96.9 F L 09/27/17 15:00 Pulse 84 09/27/17 15:00 Resp 16 09/27/17 15:00 BP 147/90 09/27/17 15:00 Pulse Ox 94 L 09/27/17 15:00 Intake & Output 09/26/17 09/27/17 09/27/17 18:59 06:59 18:59 Intake Total 600 Output Total 800 Balance -800 600 Weight 102 kg Intake: IV 100 Meropenem 1 gm In Sodium 100 Chloride 0.9% 100 ml @ 100 mls/hr IVPB Q12H JADEN Rx#:[id number] Intake, IV Titration 500 Amount Vancomycin 1,750 mg In 500 Sodium Chloride 0.9% 500 ml @ 167 mls/hr IVPB Q12HR JADEN Rx#:[id number] Output: Urine 800 Other: # Voids 3 3 4 # Bowel Movements 0 - Exam Head normocephalic Neck supple Lungs improvement in air movement. No wheezing Heart regular rate and rhythm S1-S2, no rub or gallop Abdomen is nontender but distended positive bowel sounds Extremities edema of bilateral lower and upper extremities. Neuro alert and orientated to 3 - Labs CBC & Chem 7: 09/27/17 09:32 09/27/17 09:32 Labs: Abnormal Lab Results - Last 24 Hours (Table) 09/26/17 09/26/17 09/27/17 Range/Units 17:20 21:01 06:59 WBC (3.8-10.6) k/uL RBC (4.30-5.90) m/uL Hgb (13.0-17.5) gm/dL Hct (39.0-53.0) % RDW (11.5-15.5) % Neutrophils # (Manual) (1.3-7.7) k/uL Metamyelocytes # (Man) (0) k/uL Myelocytes # (Manual) (0) k/uL Nucleated RBCs (0-0) /100 WBC Sodium (137-145) mmol/L Chloride (98-107) mmol/L BUN (9-20) mg/dL Glucose (74-99) mg/dL POC Glucose (mg/dL) 322 H 299 H 230 H (75-99) mg/dL Total Bilirubin (0.2-1.3) mg/dL ALT (21-72) U/L Alkaline Phosphatase (38-126) U/L Total Protein (6.3-8.2) g/dL Albumin (3.5-5.0) g/dL 09/27/17 09/27/17 09/27/17 Range/Units 09:32 09:32 11:37 WBC 23.0 H (3.8-10.6) k/uL RBC 4.13 L (4.30-5.90) m/uL Hgb 11.8 L (13.0-17.5) gm/dL Hct 35.9 L (39.0-53.0) % RDW 17.4 H (11.5-15.5) % Neutrophils # (Manual) 19.50 H (1.3-7.7) k/uL Metamyelocytes # (Man) 0.46 H (0) k/uL Myelocytes # (Manual) 0.46 H (0) k/uL Nucleated RBCs 4 H (0-0) /100 WBC Sodium 136 L (137-145) mmol/L Chloride 94 L (98-107) mmol/L BUN 26 H (9-20) mg/dL Glucose 332 H (74-99) mg/dL POC Glucose (mg/dL) 283 H (75-99) mg/dL Total Bilirubin 1.5 H (0.2-1.3) mg/dL ALT 366 H (21-72) U/L Alkaline Phosphatase 192 H (38-126) U/L Total Protein 5.9 L (6.3-8.2) g/dL Albumin 3.4 L (3.5-5.0) g/dL Microbiology - Last 24 Hours (Table) 09/20/17 23:26 Blood Culture - Final Blood No Growth after 144 hours Assessment and Plan Plan: 1. Acute sepsis present on admission possibly secondary to dog bite to the left hand. Infectious disease has been consulted. Blood culture negative so far. Antibiotics adjusted per infectious disease patient currently on meropenem and vancomycin 2. Shortness of breath with chest pain and Elevated d-dimer: Unable to perform a CTA of the chest because of elevated creatinine. Patient unable to tolerate VQ scan at this time. Troponins negative 2 venous Doppler negative for DVT. Patient followed by pulmonary service. They started patient on Lovenox 30 mg daily 3. Acute kidney injury: Likely related to hypoperfusion due to patient's hypotension. As well as diarrhea. Creatinine 3.20 on admission. He has received IV fluids. Nephrology following closely. Creatinine has normalized 4. Hypotension patient receiving IV fluids. Patient is now off of Levophed 5. Acute asthma exacerbation patient was started on IV Solu-Medrol and bronchodilators. Pulmonary service following 6. Diarrhea . Patient had formed stool unable to complete stool study for C. diff 7. Diabetes mellitus type 2 : hyperglycemia related to the IV steroids. Patient currently on the Levemir and sliding scale. Continue to monitor 8. History of frtfd-yzaapd-mdeq disease after bone marrow transplant. Patient has not been taking antirejection medication for over a year. Patient stopped taking them on his own. 9. History of CML status post chemotherapy and a bone marrow transplant in 2006. Oncology consulted 10. Mood disorder continue Lamictal 11. History of coronary artery disease with previous cardiac stent 12. Hyperkalemia: Resolved 13. Hypomagnesemia resolved 14. History of peripheral vascular disease with percutaneous superficial femoral artery arthrectomy and percutaneous transluminal balloon angioplasty of the left leg in July 2017 15. Metabolic acidosis secondary to lactic acidosis and renal failure. Neurology is placed patient on bicarb 16. Acute hypoxic respiratory initially requiring BiPAP. Currently on nasal cannula 17. Shocked liver: LFTs trending down . Lipitor and fenofibrate have been discontinued . 18. Thrombocytopenia: Continue to monitor 19. Low IgG level oncology has ordered IVIG 20. Fluid overload: Nephrology is ordered Lasix 40 mg IV every 12 hours. She should still having generalized edema with some improvement. continue diuresing 21. Moderate protein calorie malnutrition: At [facility] DVT prophylaxis lovenox and GI prophylaxis Protonix Consult physical therapy At this time we are gradually decreasing IV steroids and insulin Will start Solu-Medrol 40 mg IV every 12 hours Will decrease Levemir to 45 units once daily Recheck labs in a.m. possible discharge to home tomorrow
[2017-09-27 17:16] LABS: Glucose,Whole Blood 259 mg/dL (75-99)
[2017-09-27] MEDS ORDERED: INSULIN DETEMIR 100 UNIT/ML 10 ML VIAL SQ SCH (21:00)
[2017-09-27] MEDS: lamoTRIgine 25 MG TAB PO SCH (21:07)
--- NOTE | 2017-09-27 21:07 | PN ---
PROGRESS NOTE Patient is seen for followup for acute kidney injury and volume overload. Currently, he is maintained on IV Lasix. He states he is feeling much better, but feels he would like to go home tomorrow. The patient has had good urine output. He is not short of breath. He is sleeping comfortably and easily arousable. Blood pressure was 148/73, heart rate 80 per minute. Patient is afebrile. Examination of the heart S1, S2. Examination of the lungs bilateral breath sounds are heard. Abdomen is soft, nontender. Examination of lower extremities shows trace edema bilaterally. [employer] SALESPERSON exam is grossly intact. LABS: Reveals sodium of 136, potassium 4.0, BUN 26, serum creatinine 0.82, AST 41, ALT is 366. ASSESSMENT: 1. Acute kidney injury, acute tubular necrosis secondary to hypotension, hypoperfusion currently resolved. 2. Volume overload maintained on IV Lasix. We can switch to p.o. Lasix tomorrow. Renal function remains stable with no significant metabolic alkalosis. 3. Shock liver. Liver enzymes are decreasing. 4. History of CML status post bone marrow transplant. 5. Left hand dog bite. Currently maintained on vancomycin. PLAN: Switch to oral diuretics tomorrow. MMODL / IJN: [id number] /
[2017-09-27] MEDS: methylPREDNISolone SOD SUCCI 40 MG/ML 1 ML VIAL IV SCH (21:08)
[2017-09-27 21:16] LABS: Glucose,Whole Blood 341 mg/dL (75-99)
[2017-09-28] MEDS: SALT AND SODA MOUTHWASH 1,000 ML PO SCH ×3 (00:40→12:55)
[2017-09-28] MEDS: IPRATROPIUM-ALBUTEROL 3 ML NEB INHALATION SCH ×4 (00:48→11:22)
[2017-09-28] MEDS: FUROSEMIDE 10 MG/ML 4 ML VIAL IV SCH (06:28)
[2017-09-28] MEDS: PANTOPRAZOLE 40 MG TABLET PO SCH (06:28)
[2017-09-28] MEDS: MEROPENEM 1 GM in SODIUM CHLORIDE 0.9% 100 ML IVPB SCH (06:28)
[2017-09-28] MEDS: ACETAMINOPHEN TAB 325 MG TAB PO PRN (06:38)
[2017-09-28 07:17] LABS: Glucose,Whole Blood 204 mg/dL (75-99)
[2017-09-28 07:41] LABS: Anisocytosis Slight; Basophils # (A) 0.1 k/uL (0-0.2); Basophils % (A) 1 %; Eosinophils % (A) 0 %; HCT 36.7 % (39.0-53.0); HGB 12.2 gm/dL (13.0-17.5); Lymphocytes # (A) 3.3 k/uL (1.0-4.8); Lymphocytes % (A) 15 %; MCH 28.3 pg (25.0-35.0); MCHC 33.3 g/dL (31.0-37.0); MCV 84.9 fL (80.0-100.0); Mean Platelet Volume 8.8; Monocytes # (A) 1.1 k/uL (0-1.0); Monocytes % (A) 5 %; Neutrophils # (A) 17.1 k/uL (1.3-7.7); Neutrophils % (A) 78 %; Platelet Count 240 k/uL (150-450); RBC 4.33 m/uL (4.30-5.90); RDW 16.6 % (11.5-15.5); WBC 21.8 k/uL (3.8-10.6)
[2017-09-28 08:04] LABS: ALT 301 U/L (21-72); AST 31 U/L (17-59); Albumin 3.7 g/dL (3.5-5.0); Alkaline Phosphatase 160 U/L (38-126); Anion Gap 11 mmol/L; Blood Urea Nitrogen 26 mg/dL (9-20); Calcium 9.5 mg/dL (8.4-10.2); Carbon Dioxide 31 mmol/L (22-30); Chloride 95 mmol/L (98-107); Glucose 193 mg/dL (74-99); Potassium 4.1 mmol/L (3.5-5.1); Sodium 137 mmol/L (137-145); Total Bilirubin 1.2 mg/dL (0.2-1.3); Total Protein 6.4 g/dL (6.3-8.2)
[2017-09-28 08:19] VITALS: BP 138/80; RESP 19; TEMP 96.2
[2017-09-28] MEDS: ENOXAPARIN 30 MG/0.3 ML SYRINGE SQ SCH (08:19)
[2017-09-28] MEDS: VANCOMYCIN 1,750 MG in SODIUM CHLORIDE 0.9% 500 ML IVPB SCH (08:19)
[2017-09-28] MEDS: CLOPIDOGREL 75 MG TAB PO SCH (08:20)
[2017-09-28] MEDS: guaiFENesin 600 MG TABLET.ER PO SCH (08:20)
[2017-09-28] MEDS: methylPREDNISolone SOD SUCCI 40 MG/ML 1 ML VIAL IV SCH (08:20)
[2017-09-28] MEDS: INSULIN ASPART 100 UNIT/ML 1 ML 10 ML VIAL SQ SCH ×2 (08:20→12:53)
[2017-09-28 08:21] VITALS: PULSE 76
[2017-09-28 08:23] LABS: Glucose,Whole Blood 219 mg/dL (75-99)
--- NOTE | 2017-09-28 11:11 | PN ---
PROGRESS NOTE The patient is seen for followup for acute kidney injury and volume overload. He is maintained on IV Lasix for significant volume overload, which is now improved significantly. The patient will be discharged today. PHYSICAL EXAMINATION: On examination, blood pressure is 138/80, heart rate 76 per minute. He is afebrile. EXAMINATION OF THE HEART: S1, S2. EXAMINATION OF THE LUNGS: Bilateral breath sounds are heard. Abdomen is soft, nontender. Examination of lower extremities shows no evidence of edema. [employer]NER exam is grossly intact. LABS: Labs show sodium 137, potassium 4.1, serum creatinine 0.8, CO2 is 31. ASSESSMENT: 1. Acute kidney injury, acute tubular necrosis, currently significantly improved. Serum creatinine down to 0.8 from 3.2 on initial admission. 2. Volume overload, now significantly improved. I will discontinue the IV Lasix. The patient is advised to maintain good oral intake upon discharge. I do not think he will need oral Lasix post discharge. 3. Status post left hand dog bite, significantly improved. 4. Sepsis, clinically improved. 5. History of chronic myeloid leukemia, status post bone marrow transplant. PLAN: Discontinue IV Lasix and the patient is stable for discharge from Nephrology standpoint. MMODL / IJN: [id number] /
[2017-09-28 12:59] LABS: Glucose,Whole Blood 233 mg/dL (75-99)
--- NOTE | 2017-09-28 13:04 | P.DS ---
Providers Date of admission: 09/21/17 02:29 Expected date of discharge: 09/28/17 Attending physician: Jumana Templeton Consults: 09/21/17 02:28 Consult Physician Routine Consulting Provider: Liu Lancaster Consult Reason/Comments: icu Do you want consulting provider notified?: Yes Consult Physician Routine Consulting Provider: Sawyer Hill Consult Reason/Comments: sepsis Do you want consulting provider notified?: Yes 09/21/17 04:20 Consult Physician Routine Consulting Provider: Kayla Strong Consult Reason/Comments: arf Do you want consulting provider notified?: Yes 09/21/17 08:49 Consult Physician Routine Consulting Provider: Cristofer Vera Consult Reason/Comments: cml/previous bone m,arrow transplant Do you want consulting provider notified?: Yes Primary care physician: Марина [place] Course: Discharge diagnosis 1. Acute sepsis present on admission possibly secondary to dog bite to the left hand. Seen by infectious disease. Blood cultures remain negative. Dr. Hill is recommending moxifloxacin for 7 days at discharge 2. Shortness of breath with chest pain and Elevated d-dimer: Unable to perform a CTA of the chest because of elevated creatinine. Patient unable to tolerate VQ scan at this time. Troponins negative 2 venous Doppler negative for DVT. Patient followed by pulmonary service. They felt that it was unlikely that patient had a PE. IV heparin was discontinued and patient was placed on subcu Lovenox during his admission 3. Acute kidney injury: Likely related to hypoperfusion due to patient's hypotension. As well as diarrhea. Creatinine 3.20 on admission. He has received IV fluids. Nephrology following closely. Creatinine has normalized 4. Hypotension : Improved after IV fluids. Patient did require Levophed for short while in the ICU. 5. Acute asthma exacerbation : Required IV steroids during the admission. He' ll be discharged home with a quick prednisone taper 6. Diarrhea . Patient had formed stool unable to complete stool study for C. diff 7. Diabetes mellitus type 2 : hyperglycemia related to the IV steroids. Continue to monitor patient will resume his home insulin at time of discharge 8. History of ezynf-oudynj-yrdu disease after bone marrow transplant. Patient has not been taking antirejection medication for over a year. Patient stopped taking them on his own. 9. History of CML status post chemotherapy and a bone marrow transplant in 2006. Oncology consulted 10. Mood disorder continue Lamictal 11. History of coronary artery disease with previous cardiac stent 12. Hyperkalemia: Resolved 13. Hypomagnesemia resolved 14. History of peripheral vascular disease with percutaneous superficial femoral artery arthrectomy and percutaneous transluminal balloon angioplasty of the left leg in July 2017 15. Metabolic acidosis secondary to lactic acidosis and renal failure. Improved after sodium bicarb drip 16. Acute hypoxic respiratory initially requiring BiPAP. Currently on nasal cannula 17. Shocked liver: LFTs trending down . Lipitor and fenofibrate have been discontinued . Recommend checking LFTs in 1 week 18. Thrombocytopenia: Continue to monitor 19. Low IgG level oncology has ordered IVIG 20. Fluid overload: Improved with IV Lasix. Nephrology discontinue IV Lasix yesterday. Patient will not require by mouth Lasix at time of discharge 21. Moderate protein calorie malnutrition: At [facility] course this is a 52-year-old male, patient of Dr. Sweeney. He has a known past medical history of CML with a bone marrow transplant in 2006 and previous chemo treatment. He has been off of his antirejection medications for about a year. Patient reports that he did not want to take 50 pounds. He also has a known history of asthma, coronary disease with stent, hypertension, diabetes mellitus , hyperlipidemia, obstructive sleep apnea and peripheral vascular disease. Patient reports last about 4 days ago he received a dog bite to the left hand. The dog's family dog and up-to-date on immunizations. He reports that he had some swelling in the hand and redness around the puncture sites. No pus drainage. He reports that it seemed to be healing. Thursday patient started to not feel well. He was feverish with a temp of 102. Having chills and sweats. Also started to have some nausea and diarrhea. Decrease in appetite. He also started to have a cough with some phlegm production. Patient started to become concerned on Thursday still having temps and diarrhea. Came into the emergency room for further evaluation and treatment. Patient also had been reporting lower chest and abdomen discomfort. Patient had a white count 12.6 creatinine elevated at 3.20 and lactic acid elevated at 6.3 up to 8.5. Patient was found to be septic received 3 L of IV fluid boluses for his hypotension. Patient continued to become more short of breath and increased respiratory rate. BiPAP was ordered. Patient did not tolerate the BiPAP. He was transferred to the ICU. He is currently on 4 mics of Levophed. And on but broad-spectrum antibiotics which include Levaquin Vanco and cefuroxime. Critical care, infectious disease,oncology and nephrology has been consulted. Nephrology has ordered dose of IV Lasix with evidence of fluid overload earlier this morning. Patient also had an elevated d-dimer. Unable to do a CAT scan due to elevated creatinine. Patient currently cannot tolerate a VQ scan. Pulmonate service evaluated patient is on IV heparin. VQ scan and venous Dopplers have been ordered. CT of chest abdomen and pelvis is unremarkable. EKG showing a normal sinus rhythm with nonspecific T-wave abnormality 09/22/2017 patient currently in ICU. He was seen by Dr. Hill antibiotics were adjusted to meropenem and vancomycin was continued. Troponins were negative 2 sets. Doppler was negative for DVT. He remains on IV steroids for his asthma exacerbation. Creatinine has come down to 1.62. Chest x-ray showing some pulmonary venous congestion with out overt failure. Patient did have a rise in his liver enzymes AST 1000 491 and ALT 1513. He is complaining of some epigastric tenderness. Denies any alcohol abuse. He is off the Levophed. Case was discussed with pulmonarypractitioner will await their further recommendations. 09/24/2017 patient was transferred out of the ICU yesterday. His IgG levels were low and required IVIG.. Patient is more edematous throughout his body today. Having some shortness of breath but not requiring oxygen. He also is wheezy. White count has come down from 24.7 to 23.4. Liver enzymes are also trending down. Patient remains on IV antibiotics. Pending and Vanco. Nephrology has started patient on IV Lasix for his fluid overload. Patient denies any chest pain. Denies any nausea or vomiting. Reports having bowel movements. Denies any difficulty with urinating. 09/25/2017 patient still having significant generalized edema. Abdomen is slightly softer. Denies any chest pain or shortness of breath. Wheezing has resolved. Reports having bowel movements. Denies any difficulty with urinating. On 09/26/2017 patient is complaining of abdominal distention with some discomfort he has lower extremity edema otherwise he denies any complaints at this time there is no chest pain or shortness of breath there is no cough no nausea or vomiting and no urinary symptoms On 09/27/2017 patient is feeling better he is alert and oriented 3 in no apparent distress abdominal discomfort and distention has improved patient denies any chest pain or shortness of breath no cough no fever or chills no nausea or vomiting and no urinary symptoms Patient's symptoms have improved. As stated above he will complete a 7 day course of antibiotics to finish treatment for his dog bite and sepsis. Also during this admission he had shocked liver likely related to his hypotension and hypoperfusion. LFTs are trending down. However, we will recommend that he continues to hold his Lipitor and fenofibrate until liver enzymes have normalized. I recommend checking LFTs in 1 week his PCP. Patient will complete a short course of prednisone taper for his acute asthma exacerbation. Patient was followed closely by infectious disease, nephrology and pulmonary service. Patient has been cleared by audit consultant physicians for discharge. Please refer to chart for any further details. I performed an examination of the patient and discussed their management with the physician Account Manager Education. I have reviewed the Physician Account Manager Education's notes and agree with the documented findings and plan of care Patient Condition at Discharge: Stable Plan - Discharge Summary New Discharge Prescriptions: New predniSONE 10 mg PO DIRECTED #9 tab Moxifloxacin HCl 400 mg PO DAILY #7 tab Continue lamoTRIgine [LaMICtal] 50 mg PO HS Insulin Glargine/Lixisenatide [Soliqua 100 Unit-33 Mcg/ml Pen] 44 units SQ QAM metFORMIN HCL 1,000 mg PO BID #0 Clopidogrel [Plavix] 75 mg PO DAILY tab rOPINIRole HCL [Requip] 1 mg PO HS Discontinued Fenofibrate Nanocrystallized [Tricor] 145 mg PO HS Atorvastatin [Lipitor] 40 mg PO HS Discharge Medication List lamoTRIgine [LaMICtal] 50 mg PO HS 10/27/13 [History] Insulin Glargine/Lixisenatide [Soliqua 100 Unit-33 Mcg/ml Pen] 44 units SQ QAM 08/10/17 [History] metFORMIN HCL 1,000 mg PO BID #0 08/11/17 [Rx] Clopidogrel [Plavix] 75 mg PO DAILY tab 08/26/17 [Rx] rOPINIRole HCL [Requip] 1 mg PO HS 09/21/17 [History] Moxifloxacin HCl 400 mg PO DAILY #7 tab 09/28/17 [Rx] predniSONE 10 mg PO DIRECTED #9 tab 09/28/17 [Rx] Follow up Appointment(s)/Referral(s): Марина Sweeney DO [Primary Care Provider] - 10/05/17 10:00 am Sawyer Hill MD [STAFF PHYSICIAN] - 1 Week (Only make appointment with Doctor Sergio if the site worsens or a problem occurs with infection.) Alber Gonzalez MD [REFERRING] - 10/12/17 10:00 am (be there at 10 for the lab and 1030 appointment starts. ) Ambulatory/Diagnostic Orders: Comprehensive Metabolic Panel [LAB.AMB] Time Frame: 1 Week, Location: None Selected Patient Instructions/Handouts: Sepsis (GEN) Activity/Diet/Wound Care/Special Instructions: diet: diabetic Activity: as tolerated Discharge Disposition: HOME SELF-CARE
[2017-09-28 13:34] VITALS: BMI 34.2
[2017-09-29] MEDS ORDERED: VANCOMYCIN TROUGH DUE 1 EACH MISC MISCELLANE ONE (08:00)
--- NOTE | 2017-09-29 14:06 | CDI ---
Last Revision, February 2017 Documentation Clarification Form Date: 09/29/17 From: Prerna Auguste Phone: If you have a question regarding this query, please contact Sol Sawyer at [phone] betweem 8am and 5pm. Admit Date: 09/21/2017 2:29:00 AM Patient Name: Alber Davison Visit Number: [id number] Discharge Date: 09/28/17 ATTENTION: The Clinical Documentation Specialists (CDI) and [facility] Coding Staff appreciate your assistance in clarifying documentation. Please respond to the clarification below the line at the bottom and electronically sign. The CDI & [facility] Coding staff will review the response and follow-up if needed. Please note: Queries are made part of the Legal Health Record. If you have any questions, please contact the author of this message via ITS. Dr. Gume Rodriguez Acute exacerbation of asthma is documented in the H&P, your consult note, discharge summary and in numerous progress notes. Patient history/risk factors: Patient was admitted with sepsis due to a dog bite. 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 Clinical Indicators: Cough with phlegm production, short of breath, increased respiratory rate. Lungs have crackles at the bases bilaterally and anterior wheeze. Radiology: Normal chest Vital Signs: T. 97.8, P. 105, R. 22, BP 106/55, O2 sat. 98% Medication: IV Solu-medrol and bronchodilators In your professional opinion, can you please further specify the following, if known? Severity: Mild intermittent Mild persistent Moderate persistent Severe persistent Other, please specify ____ Unable to determine MTDD
== END 2017-09-28 14:07 | disposition home or self-care (01) | DRG 871 ==
LOC: EC 23:03 → 6ICU 09-21 02:29 → 4MS4W 09-23 16:19
PROVIDERS: ADMIT Internal Medicine; ATTEND Internal Medicine
PROC: 5A09357 Assistance with Respiratory Ventilation, Less than 24 Consecutive Hours, Continuous Positive Airway Pressure (ICD-10-PCS; principal; 2017-09-21)
DX: A41.9 Sepsis, unspecified organism (principal); J18.9 Pneumonia, unspecified organism; K72.00 Acute and subacute hepatic failure without coma; N17.0 Acute kidney failure with tubular necrosis; R65.21 Severe sepsis with septic shock; J96.01 Acute respiratory failure with hypoxia; C92.10 Chronic myeloid leukemia, BCR/ABL-positive, not having achieved remission; D80.1 Nonfamilial hypogammaglobulinemia; D89.811 Chronic graft-versus-host disease; E44.0 Moderate protein-calorie malnutrition; E87.2 Acidosis; J44.0 Chronic obstructive pulmonary disease with (acute) lower respiratory infection; T86.09 Other complications of bone marrow transplant; J45.901 Unspecified asthma with (acute) exacerbation; D69.6 Thrombocytopenia, unspecified; E03.9 Hypothyroidism, unspecified; E11.51 Type 2 diabetes mellitus with diabetic peripheral angiopathy without gangrene; E11.65 Type 2 diabetes mellitus with hyperglycemia; E78.5 Hyperlipidemia, unspecified; E83.39 Other disorders of phosphorus metabolism; E83.42 Hypomagnesemia; E87.5 Hyperkalemia; E87.70 Fluid overload, unspecified; F39 Unspecified mood [affective] disorder; F41.9 Anxiety disorder, unspecified; G47.33 Obstructive sleep apnea (adult) (pediatric); I10 Essential (primary) hypertension; I25.10 Atherosclerotic heart disease of native coronary artery without angina pectoris; K21.9 Gastro-esophageal reflux disease without esophagitis; K52.9 Noninfective gastroenteritis and colitis, unspecified; S61.452A Open bite of left hand, initial encounter; T38.0X5A Adverse effect of glucocorticoids and synthetic analogues, initial encounter; M19.90 Unspecified osteoarthritis, unspecified site; D89.9 Disorder involving the immune mechanism, unspecified; R68.2 Dry mouth, unspecified; G56.03 Carpal tunnel syndrome, bilateral upper limbs; R07.9 Chest pain, unspecified; Z79.02 Long term (current) use of antithrombotics/antiplatelets; Z79.4 Long term (current) use of insulin; Z79.82 Long term (current) use of aspirin; Z79.899 Other long term (current) drug therapy; Z88.0 Allergy status to penicillin; Z95.5 Presence of coronary angioplasty implant and graft; Z92.21 Personal history of antineoplastic chemotherapy; Z87.891 Personal history of nicotine dependence; Z68.34 Body mass index [BMI] 34.0-34.9, adult; Z82.49 Family history of ischemic heart disease and other diseases of the circulatory system; Z82.0 Family history of epilepsy and other diseases of the nervous system; W54.0XXA Bitten by dog, initial encounter; Y83.0 Surgical operation with transplant of whole organ as the cause of abnormal reaction of the patient, or of later complication, without mention of misadventure at the time of the procedure
CPT/HCPCS: 36415; 71045; 71250; 74176; 80048; 80051; 80053; 80202; 81001; 82009; 82150; 82248; 82784; 83036; 83605; 83690; 83735; 83880; 84100; 84132; 84484; 85025; 85379; 85610; 85730; 86850; 86900; 86901; 87040; 87086; 87502; 93005; 93970; 94640; 94660; 94760; 96365; 96367; 96368; 96375; 96376; 99285

== ENCOUNTER → 2018-01-19 | Outpatient (CLI) | payer BC, MEDICARE ==
[2018-01-19 12:35] LABS: Anisocytosis Slight; Basophils # (A) 0.1 k/uL (0-0.2); Basophils % (A) 1 %; Eosinophils # (A) 0.1 k/uL (0-0.7); Eosinophils % (A) 1 %; HCT 45.6 % (39.0-53.0); HGB 14.6 gm/dL (13.0-17.5); Hypochromasia Slight; Lymphocytes % (A) 55 %; MCH 28.5 pg (25.0-35.0); MCHC 31.9 g/dL (31.0-37.0); MCV 89.3 fL (80.0-100.0); Mean Platelet Volume 7.1; Monocytes # (A) 0.7 k/uL (0-1.0); Monocytes % (A) 7 %; Neutrophils # (A) 3.1 k/uL (1.3-7.7); Neutrophils % (A) 33 %; Platelet Count 298 k/uL (150-450); RBC 5.11 m/uL (4.30-5.90); RDW 16.2 % (11.5-15.5); WBC 9.4 k/uL (3.8-10.6)
[2018-01-19 12:39] LABS: Lymphocytes # (A) 5.1 k/uL (1.0-4.8)
[2018-01-19 12:52] LABS: Anion Gap 9 mmol/L; Blood Urea Nitrogen 13 mg/dL (9-20); Carbon Dioxide 25 mmol/L (22-30); Chloride 101 mmol/L (98-107); Potassium 4.9 mmol/L (3.5-5.1); Sodium 135 mmol/L (137-145)
[2018-01-19 14:08] LABS: Howell-Jolly Bodies Present
[2018-01-20 16:35] LABS: HDL Cholesterol 41 mg/dL (40-60)
[2018-01-20 16:41] LABS: Cholesterol 496 mg/dL (<200)
[2018-01-20 18:02] LABS: Triglycerides 1681 mg/dL (<150)
[2018-01-21 04:30] LABS: Hemoglobin A1C 10.7 % (4.0-6.0)
== END | disposition home or self-care (01) ==
LOC: LABPAT 10:49
PROVIDERS: ATTEND Surgery
DX: Z01.812 Encounter for preprocedural laboratory examination (principal); I70.213 Atherosclerosis of native arteries of extremities with intermittent claudication, bilateral legs
CPT/HCPCS: 36415; 80051; 80061; 82565; 83036; 84520; 85025

== ENCOUNTER 2018-02-02 05:49 | Day surgery (SDC) | payer BC, MEDICARE ==
[2018-01-28 11:51] VITALS: BMI 32.9
[~2018-02-02 05:49] MED LIST changes: -ALPRAZolam 0.25 MG TAB PO PRN; -ASPIRIN 325 MG TAB PO STA; -DEXAMETHASONE SOD PHOSPHATE 10 MG/ML 1 ML VIAL IV ONE; -LIDOCAINE 1% 20 ML VIAL (10MG/ML) FOR IV START INTRADERMA PRN; -MIDAZOLAM 2 MG/2 ML VIAL IV PRN; -SCOPOLAMINE 1.5MG/72HR PATCH TRANSDERM ONE; -SODIUM CHLORIDE 0.9% 1,000 ML in EMPTY BAG 1 BAG IV ONE; +ceFAZolin IN SWFI 2 GM/20 ML SYRINGE IVP ONE; -fentaNYL (PF) 50 MCG/ML 2 ML AMP IV PRN
[2018-02-02] MEDS ORDERED: SODIUM CHLORIDE 0.9% 1,000 ML IV ONE (07:05)
[2018-02-02 07:23] LABS: Glucose,Whole Blood 259 mg/dL (75-99)
[2018-02-02] MEDS ORDERED: MIDAZOLAM 2 MG/2 ML VIAL IVP ONE ×2 (07:45→08:20)
[2018-02-02] MEDS ORDERED: fentaNYL (PF) 50 MCG/ML 2 ML AMP IVP ONE (07:45)
[2018-02-02] MEDS ORDERED: LIDOCAINE 1% INJ 10MG/ML (20 ML MDV) SQ ONE (07:47)
[2018-02-02] MEDS ORDERED: HEPARIN SODIUM 1,000 UN/ML (10ML VL) IV ONE (07:54)
[2018-02-02] MEDS ORDERED: IOPAMIDOL-250 100ML BTL INTRAARTER ONE (09:32)
[2018-02-02] MEDS ORDERED: HYDROcodone/APAP 5-325MG 1 EACH TAB PO PRN (10:00)
[2018-02-02] MEDS ORDERED: INSULIN ASPART 100 UNIT/ML 1 ML 10 ML VIAL SQ ONE (10:36)
--- NOTE | 2018-02-02 10:48 | P.OP ---
Date of Procedure: 02/02/18 Preoperative Diagnosis: right lower extremity disabiling claudication Postoperative Diagnosis: right lower extremity claudication right SFA stenosis with focal occlusion non-flow limiting small focal SFA dissection Procedure(s) Performed: right lower extremity angiogram via left femoral artery access under ultrasound guidance right superficial femoral artery percutaneous atherectomy with Hawk One device right superficial femoral artery percutaneous balloon angioplasty with Impact drug eluding balloon x 2 right superficial femoral artery percutaneous balloon angioplasty with [place] 6x100 cm balloon Anesthesia: other (moderate sedation with Versed and Fentanyl x 100 mins) Surgeon: Alber Fall Estimated Blood Loss (ml): 5 Pathology: none sent Condition: stable Disposition: same day Indications for Procedure: 52 year old gentleman with history of lower extremity claudication bilaterally with recent revascularization of his left lower extremity presented for right lower extremity revascularization. Upon previous angiogram patient was found to have multiple areas of stenosis of the right SFA and a focal occlusion at Carlos's canal. He was having difficulty with ambulation, stating pain in right calf after walking 50-100 feet. ANABELL's in the office were 0.65 on the right. Operative Findings: right SFA stenosis with focal occlusion at carlos's canal. right iliac artery was patent with minimal disease. right profunda had minimal disease and stenosis. right tibial peroneal trunk was patent with minimal disease with 3 vessel runoff to the ankle. Description of Procedure: After written and informed consent was obtained from the patient and all risks benefits and complications were described the patient was brought to the [facility] and laid in the supine position. The area of the groins were prepped and draped in usual sterile fashion. Moderate sedation was then performed with Versed and fentanyl and the patient was monitored with continuous pulse ox and EKG monitoring. Timeout was performed in normal fashion. The left common femoral artery was visualized under ultrasound guidance and after local anesthetic was infused overlying the artery utilizing a multipuncture needle the artery was accessed with pulsatile blood flow visualized. Guidewire was placed followed by a 6-Faroese sheath. 035 Glidewire advantage was then placed into the aorta followed by a rim catheter and an up and over fashion the right iliac and femoral artery was accessed with the guidewire. Once accessed the 6-Faroese sheath was removed and a 7-Faroese raabe sheath was placed in an up and over fashion. Patient was administered heparin and followed with serial ACTs. Right lower extremity angiogram was then obtained demonstrating multiple areas of stenosis in the superficial femoral artery as well as a focal occlusion at Carlos's canal. Utilizing a 035 Glidewire advantage and a quick cross catheter attempts to cross the lesion was performed. When attempting to cross the lesion there was a small dissection flap that was lifted. The crossing catheter and Glidewire advantage was then pulled back back to the [place] vessel and utilizing an [place] .018 wire the lesion was crossed intraluminally. Quick cross catheter was placed across the lesion and angiogram was performed demonstrating intraluminal access. Once across a spider filter was then placed into the popliteal artery and the Hawk one device was opened for atherectomy. Percutaneous atherectomy was then performed across the superficial femoral artery lesions. After multiple passes were performed and angiogram was obtained demonstrating a large improvement of the lumen. At that time impact drug-eluting balloon was chosen to be placed across the lesions. Two 120 mm drug-eluting balloon was placed across the SFA x 3 minutes each. Angiogram was then obtained which demonstrated a focal dissection. This was covered again with an [place] 6x100 mm balloon for 5 minutes with improvement of the dissection which was not flow limiting. All guidewires and catheters were removed and a 7F short sheath was placed to replace the longer sheath and patient was sent to recovery. At the conclusion of the procedure the patient had a palpable DP pulse bilaterally. The sheath will be removed once the ACT is less than 180. Plan - Discharge Summary Discharge Rx Participant: No New Discharge Prescriptions: No Action lamoTRIgine [LaMICtal] 200 mg PO HS Insulin Glargine/Lixisenatide [Soliqua 100 Unit-33 Mcg/ml Pen] 48 units SQ QAM metFORMIN HCL 1,000 mg PO BID #0 Clopidogrel [Plavix] 75 mg PO DAILY tab rOPINIRole HCL [Requip] 0.5 mg PO HS Liraglutide [Victoza 2-Luke] 1.8 mg SQ DAILY Sulfamethox-Tmp 800-160Mg [Bactrim DS 800-160 mg] 1 tab PO Q12HR FLUoxetine HCL 20 mg PO DAILY Atorvastatin [Lipitor] 40 mg PO HS Fenofibrate Nanocrystallized [Tricor] 145 mg PO DAILY Aspirin 81 mg PO ONCE Discharge Medication List lamoTRIgine [LaMICtal] 200 mg PO HS 10/27/13 [History] Insulin Glargine/Lixisenatide [Soliqua 100 Unit-33 Mcg/ml Pen] 48 units SQ QAM 08/10/17 [History] metFORMIN HCL 1,000 mg PO BID #0 08/11/17 [Rx] Clopidogrel [Plavix] 75 mg PO DAILY tab 08/26/17 [Rx] rOPINIRole HCL [Requip] 0.5 mg PO HS 09/21/17 [History] Atorvastatin [Lipitor] 40 mg PO HS 01/28/18 [History] FLUoxetine HCL 20 mg PO DAILY 01/28/18 [History] Fenofibrate Nanocrystallized [Tricor] 145 mg PO DAILY 01/28/18 [History] Liraglutide [Victoza 2-Luke] 1.8 mg SQ DAILY 01/28/18 [History] Sulfamethox-Tmp 800-160Mg [Bactrim DS 800-160 mg] 1 tab PO Q12HR 01/28/18 [ History] Aspirin 81 mg PO ONCE 02/02/18 [History]
[2018-02-02 10:54] LABS: Glucose,Whole Blood 239 mg/dL (75-99)
--- NOTE | 2018-02-02 11:08 | IR ---
Fluoroscopy HISTORY: Pain in right leg 31.2 fluoroscopy time supplied to the referring clinician. 1150 intraoperative C-arm images document the procedure. See dictated report from vascular surgery.
[2018-02-02 11:32] LABS: Glucose,Whole Blood 219 mg/dL (75-99)
[2018-02-02 15:45] VITALS: RESP 16
--- NOTE | 2018-02-02 16:06 | P.CONS ---
History of Present Illness - Reason for Consult Consult date: 02/02/18 medical management Requesting physician: Alber Fall - History of Present Illness This is a 52-year-old male patient of Dr. Sweeney. Patient presented for an elective right lower extremity angiogram via left femoral artery with Dr. Fall. she has a known past medical history of sepsis from dog bite which he was recently mid to the intensive care unit in September. 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 patient is currently resting comfortably in bed with no complaints. Patient has good pulse in right lower extremity. At this time patient denies chest pain or shortness of breath. Patient denies nausea vomiting or diarrhea. Patient denies any urinary symptoms. Review of Systems Please refer to HPI otherwise unremarkable Past Medical History Past Medical History: Asthma, Coronary Artery Disease (CAD), Cancer, Chest Pain / Angina, Diabetes Mellitus, Hyperlipidemia, Hypertension, Osteoarthritis (OA), Pneumonia, Sleep Apnea/CPAP/BIPAP, Thyroid Disorder, Vascular Disorder Additional Past Medical History / Comment(s): CML-chronic anemia, immmunosuppressed, not using CPAP, carpal tunnel bilaterally, previous toe on each foot fx.He has chronic dry mucosa from the exdsy-ospjol-ejcr disease especially of the eyes and oral cavity. This necessitated the utilization special contacts and removal of his teeth. History of Any Multi-Drug Resistant Organisms: None Reported Past Surgical History: Heart Catheterization With Stent, Joint Replacement Additional Past Surgical History / Comment(s): BONE MARROW TRANSPLANT 2006, L KNEE scope & REPLACEMENT, SEPTAL SURG, BMTs bilateral ears, hemorrhoidectomy, colonoscopy, vasectomy, recent aortogram, atherectomy with ballon angioplasty Past Anesthesia/Blood Transfusion Reactions: No Reported Reaction Additional Past Anesthesia/Blood Transfusion Reaction / Comm: Pt has received blood without reaction. mom had problems with dyes and anesthesia Date of Last Stent Placement:: 2007 Past Psychological History: Anxiety Additional Psychological History / Comment(s): Pt resides with his spouse and 2 grown children. He is independent. He uses no assistive device. He has DEDE and his CPAP is broken so he is not using it at this time. He drives. 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 Was a tobacco smoker briefly more than 20 years ago. No significant alcohol use. No recreational drugs use. No experience. No recent travel history. No animal exposures. Smoking Status: Former smoker Past Alcohol Use History: Rare Additional Past Alcohol Use History / Comment(s): Pt states he has not smoked for 25 yrs and when he did it was only on occasion-socially. Past Drug Use History: None Reported - Past Family History Father Family Medical History: Coronary Artery Disease (CAD) Additional Family Medical History / Comment(s): Father had triple bypass. He committed suicide. Mother Family Medical History: Dementia Additional Family Medical History / Comment(s): Mother at age 72yrs. Daughter(s) Family Medical History: Blood Disorder Medications and Allergies Home Medications Medication Instructions Recorded Confirmed Type lamoTRIgine [LaMICtal] 200 mg PO HS 10/27/13 02/02/18 History Insulin Glargine/Lixisenatide 48 units SQ QAM 08/10/17 02/02/18 History [Soliqua 100 Unit-33 Mcg/ml Pen] metFORMIN HCL 1,000 mg PO BID #0 08/11/17 02/02/18 Rx Clopidogrel [Plavix] 75 mg PO DAILY tab 08/26/17 02/02/18 Rx rOPINIRole HCL [Requip] 0.5 mg PO HS 09/21/17 02/02/18 History Atorvastatin [Lipitor] 40 mg PO HS 01/28/18 02/02/18 History FLUoxetine HCL 20 mg PO DAILY 01/28/18 02/02/18 History Fenofibrate Nanocrystallized 145 mg PO DAILY 01/28/18 02/02/18 History [Tricor] Liraglutide [Victoza 2-Luke] 1.8 mg SQ DAILY 01/28/18 02/02/18 History Sulfamethox-Tmp 800-160Mg [Bactrim 1 tab PO Q12HR 01/28/18 02/02/18 History DS 800-160 mg] Aspirin 81 mg PO ONCE 02/02/18 02/02/18 History Allergies Allergy/AdvReac Type Severity Reaction Status Date / Time Penicillins Allergy Unknown Verified 01/28/18 11:34 Childhood Physical Exam Vitals: Vital Signs Temp Pulse Pulse Resp BP BP Pulse Ox 02/02/18 15:41 97.6 F 73 16 124/67 95 02/02/18 14:41 70 122/67 96 02/02/18 14:36 68 104/72 94 L 02/02/18 14:30 68 106/76 95 02/02/18 14:25 70 104/60 02/02/18 14:20 69 109/74 02/02/18 14:15 70 114/60 02/02/18 13:50 70 14 114/69 132/72 95 02/02/18 12:50 74 15 115/77 148/80 97 02/02/18 12:00 70 14 02/02/18 11:50 75 17 121/77 142/76 97 02/02/18 11:10 73 115/82 97 02/02/18 10:55 97.5 F L 72 14 111/72 96 02/02/18 10:33 66 16 99/56 98 02/02/18 10:20 68 16 100/55 96 02/02/18 10:05 69 16 98/53 96 02/02/18 09:50 69 16 143/60 97 02/02/18 07:05 98.1 F 87 16 128/75 94 L Intake and Output 02/02/18 02/02/18 02/02/18 06:59 14:59 22:59 Intake Total 150 Balance 150 Intake: IV 150 Oral 0 Other: Weight 99.79 kg Head normocephalic Neck supple Lungs clear to auscultation bilaterally no wheezing or crackles Heart regular rate and rhythm S1-S2, no rub or gallop Abdomen is soft nontender nondistended positive bowel sounds no hepatosplenomegaly Extremities no edema Neuro alert and orientated to 3 Results Labs: Abnormal Lab Results - Last 24 Hours (Table) 02/02/18 02/02/18 02/02/18 Range/Units 07:02 10:24 11:28 POC Glucose (mg/dL) 259 H 239 H 219 H (75-99) mg/dL Assessment and Plan Assessment: 1. peripheral vascular disease. Status post right lower extremity angiogram with Dr. Fall. Patient maintained on Plavix 2. History of sepsis due to dog bite in September of this year 3. History of CML status post chemotherapy and bone marrow transplant in 2006 4. 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 Patient previously stopped taking rejection medications 5. Diabetes mellitus type 2. home medications resumed 6. History of asthma. No exacerbation at this time 7. Mood disorder. Patient maintained on Lamictal 8. History of coronary artery disease with previous cardiac stents thank you for this consultation we'll continue to follow patient closely throughout stay A.m. CBC and CMP have been ordered Time with Patient: Greater than 30 (Greater than 30 (Greater than 60% of the total time spent in counseling and coordination of care. I performed an examination of the patient and discussed their management with the Nurse Practitioner. I have reviewed the Nurse Practitioner's notes and agree with the documented findings and plan of care))
[2018-02-02 17:12] LABS: Glucose,Whole Blood 245 mg/dL (75-99)
[2018-02-02 20:42] LABS: Glucose,Whole Blood 220 mg/dL (75-99)
[2018-02-02] MEDS ORDERED: ATORVASTATIN 40 MG TAB PO SCH (21:00)
[2018-02-02] MEDS ORDERED: lamoTRIgine 100 MG TAB PO SCH (21:00)
[2018-02-03 06:13] LABS: Glucose,Whole Blood 276 mg/dL (75-99)
[2018-02-03 06:33] LABS: Anisocytosis Slight; Basophils # (A) 0.1 k/uL (0-0.2); Basophils % (A) 1 %; Eosinophils # (A) 0.1 k/uL (0-0.7); Eosinophils % (A) 1 %; HCT 41.7 % (39.0-53.0); HGB 13.4 gm/dL (13.0-17.5); Lymphocytes # (A) 4.6 k/uL (1.0-4.8); Lymphocytes % (A) 51 %; MCH 27.5 pg (25.0-35.0); MCHC 32.2 g/dL (31.0-37.0); MCV 85.5 fL (80.0-100.0); Mean Platelet Volume 6.6; Monocytes # (A) 0.7 k/uL (0-1.0); Monocytes % (A) 8 %; Neutrophils # (A) 3.3 k/uL (1.3-7.7); Neutrophils % (A) 37 %; Platelet Count 299 k/uL (150-450); RBC 4.87 m/uL (4.30-5.90); RDW 16.2 % (11.5-15.5)
[2018-02-03 06:58] LABS: ALT 32 U/L (21-72); AST 22 U/L (17-59); Albumin 3.7 g/dL (3.5-5.0); Alkaline Phosphatase 95 U/L (38-126); Anion Gap 6 mmol/L; Blood Urea Nitrogen 13 mg/dL (9-20); Calcium 9.3 mg/dL (8.4-10.2); Carbon Dioxide 26 mmol/L (22-30); Chloride 104 mmol/L (98-107); Glucose 245 mg/dL (74-99); Sodium 136 mmol/L (137-145); Total Bilirubin 0.4 mg/dL (0.2-1.3); Total Protein 6.4 g/dL (6.3-8.2)
[2018-02-03 08:32] VITALS: TEMP 98.1
[2018-02-03] MEDS ORDERED: CLOPIDOGREL 75 MG TAB PO SCH ×2 (09:00)
[2018-02-03] MEDS ORDERED: VICTOZA SQ SCH (09:00)
[2018-02-03] MEDS ORDERED: SOLIQUA SQ SCH (09:00)
[2018-02-03] MEDS ORDERED: ASPIRIN 81 MG PO SCH ×2 (09:00)
[2018-02-03] MEDS ORDERED: FENOFIBRATE 160 MG TAB PO SCH (09:00)
[2018-02-03] MEDS ORDERED: FLUoxetine HCL 20 MG CAP PO SCH (09:00)
--- NOTE | 2018-02-03 10:38 | P.CRDCN ---
History of Present Illness Consult date: 02/03/18 Requesting physician: Jumana Templeton Reason for Consult (text): bradycardia, pause History of present illness: This is a pleasant 52-year-old gentleman who follows with Dr. CASSY Huang in the office. Has a history of coronary artery disease, status post PCI in 2008, leukemia, diabetes, hyperlipidemia, hypertension and PAD. Presented this admission for intervention of the right SFA by Dr. Fall. He apparently had his left leg done earlier this year. Consulted to see the patient due to episode of second-degree type II AV block. Apparently at the time, patient was laying flat and eating. According to the patient, similar episode occurred when he was in for his left leg. Patient was asymptomatic at the time. Denied any dizziness, lightheadedness, loss of consciousness, shortness of breath, chest discomfort. Patient did wear a 24-hour Holter monitor earlier this year that showed no evidence of bradycardia. He is currently not on any rate lowering medications. Patient has not had any further episodes of bradycardia or second-degree type II AV block. Vital signs have been stable. Laboratory values showed of potassium 5.0, BUN 13 and creatinine 0.84. Upon examination, patient is resting comfortably in bed. He is asymptomatic at the time. Past Medical History Past Medical History: Asthma, Coronary Artery Disease (CAD), Cancer, Chest Pain / Angina, Diabetes Mellitus, Hyperlipidemia, Hypertension, Osteoarthritis (OA), Pneumonia, Sleep Apnea/CPAP/BIPAP, Thyroid Disorder, Vascular Disorder Additional Past Medical History / Comment(s): CML-chronic anemia, immmunosuppressed, not using CPAP, carpal tunnel bilaterally, previous toe on each foot fx.He has chronic dry mucosa from the qrqvi-eceomq-fqat disease especially of the eyes and oral cavity. This necessitated the utilization special contacts and removal of his teeth. History of Any Multi-Drug Resistant Organisms: None Reported Past Surgical History: Heart Catheterization With Stent, Joint Replacement Additional Past Surgical History / Comment(s): BONE MARROW TRANSPLANT 2006, L KNEE scope & REPLACEMENT, SEPTAL SURG, BMTs bilateral ears, hemorrhoidectomy, colonoscopy, vasectomy, recent aortogram, atherectomy with ballon angioplasty Past Anesthesia/Blood Transfusion Reactions: No Reported Reaction Additional Past Anesthesia/Blood Transfusion Reaction / Comment(s): Pt has received blood without reaction. mom had problems with dyes and anesthesia Date of Last Stent Placement:: 2007 Past Psychological History: Anxiety Additional Psychological History / Comment(s): Pt resides with his spouse and 2 grown children. He is independent. He uses no assistive device. He has DEDE and his CPAP is broken so he is not using it at this time. He drives. 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 Was a tobacco smoker briefly more than 20 years ago. No significant alcohol use. No recreational drugs use. No experience. No recent travel history. No animal exposures. Smoking Status: Former smoker Past Alcohol Use History: Rare Additional Past Alcohol Use History / Comment(s): Pt states he has not smoked for 25 yrs and when he did it was only on occasion-socially. Past Drug Use History: None Reported - Past Family History Father Family Medical History: Coronary Artery Disease (CAD) Additional Family Medical History / Comment(s): Father had triple bypass. He committed suicide. Mother Family Medical History: Dementia Additional Family Medical History / Comment(s): Mother at age 72yrs. Daughter(s) Family Medical History: Blood Disorder Medications and Allergies Home Medications Medication Instructions Recorded Confirmed Type lamoTRIgine [LaMICtal] 200 mg PO HS 10/27/13 02/02/18 History Insulin Glargine/Lixisenatide 48 units SQ QAM 08/10/17 02/02/18 History [Soliqua 100 Unit-33 Mcg/ml Pen] metFORMIN HCL 1,000 mg PO BID #0 08/11/17 02/02/18 Rx Clopidogrel [Plavix] 75 mg PO DAILY tab 08/26/17 02/02/18 Rx rOPINIRole HCL [Requip] 0.5 mg PO HS 09/21/17 02/02/18 History Atorvastatin [Lipitor] 40 mg PO HS 01/28/18 02/02/18 History FLUoxetine HCL 20 mg PO DAILY 01/28/18 02/02/18 History Fenofibrate Nanocrystallized 145 mg PO DAILY 01/28/18 02/02/18 History [Tricor] Liraglutide [Victoza 2-Luke] 1.8 mg SQ DAILY 01/28/18 02/02/18 History Sulfamethox-Tmp 800-160Mg [Bactrim 1 tab PO Q12HR 01/28/18 02/02/18 History DS 800-160 mg] Aspirin 81 mg PO ONCE 02/02/18 02/02/18 History Allergies Allergy/AdvReac Type Severity Reaction Status Date / Time Penicillins Allergy Unknown Verified 01/28/18 11:34 Childhood Physical Exam Vitals: Vital Signs Temp Pulse Pulse Resp BP BP Pulse Ox 02/03/18 08:00 98.1 F 80 16 113/67 95 02/03/18 04:00 98.4 F 77 16 118/54 02/03/18 00:00 98.4 F 88 85 16 116/68 02/02/18 20:00 98 F 85 85 16 120/71 93 L 02/02/18 17:20 97.4 F L 85 16 134/75 95 02/02/18 15:41 97.6 F 73 16 124/67 95 02/02/18 14:41 70 122/67 96 02/02/18 14:36 68 104/72 94 L 02/02/18 14:30 68 106/76 95 02/02/18 14:25 70 104/60 02/02/18 14:20 69 109/74 02/02/18 14:15 70 114/60 02/02/18 13:50 70 14 114/69 132/72 95 02/02/18 12:50 74 15 115/77 148/80 97 02/02/18 12:00 70 14 02/02/18 11:50 75 17 121/77 142/76 97 02/02/18 11:10 73 115/82 97 02/02/18 10:55 97.5 F L 72 14 111/72 96 02/02/18 10:33 66 16 99/56 98 Intake and Output 02/02/18 02/03/18 02/03/18 22:59 06:59 14:59 Intake Total 120 476 Output Total 700 Balance -580 476 Intake: Oral 120 476 Output: Urine 700 Other: # Voids 1 Weight 99.9 kg PHYSICAL EXAMINATION: HEENT: Head is atraumatic, normocephalic. Pupils equal, round. Neck is supple. There is no elevated jugular venous pressure. HEART EXAMINATION: Heart sounds regular, S1 and S2 normal. No murmur or gallop heard. CHEST EXAMINATION: Lungs are clear to auscultation and precussion. No chest wall tenderness is noted on palpation or with deep breathing. ABDOMEN: Soft, nontender. Bowel sounds are heard. No organomegaly noted. EXTREMITIES: 2+ peripheral pulses with no evidence of peripheral edema and no calf tenderness noted. NEUROLOGIC patient is awake, alert and oriented x3. . Results 02/03/18 06:15 02/03/18 06:15 Cardiac Enzymes 02/03/18 Range/Units 06:15 AST 22 (17-59) U/L CBC 02/03/18 Range/Units 06:15 WBC 9.0 (3.8-10.6) k/uL RBC 4.87 (4.30-5.90) m/uL Hgb 13.4 (13.0-17.5) gm/dL Hct 41.7 (39.0-53.0) % Plt Count 299 (150-450) k/uL Comprehensive Metabolic Panel 02/03/18 Range/Units 06:15 Sodium 136 L (137-145) mmol/L Potassium 5.0 (3.5-5.1) mmol/L Chloride 104 (98-107) mmol/L Carbon Dioxide 26 (22-30) mmol/L BUN 13 (9-20) mg/dL Creatinine 0.84 (0.66-1.25) mg/dL Glucose 245 H (74-99) mg/dL Calcium 9.3 (8.4-10.2) mg/dL AST 22 (17-59) U/L ALT 32 (21-72) U/L Alkaline Phosphatase 95 (38-126) U/L Total Protein 6.4 (6.3-8.2) g/dL Albumin 3.7 (3.5-5.0) g/dL Current Medications Generic Name Dose Route Start Last Admin Trade Name Freq PRN Reason Stop Dose Admin Hydrocodone Bitart/Acetaminophen 1 each 02/02/18 10:00 02/02/18 12:43 [place] 5-325 PO 1 each Q4HR PRN Administration Moderate Pain Aspirin 81 mg 02/03/18 09:00 02/03/18 08:28 Aspirin PO 81 mg DAILY JADEN Administration Atorvastatin Calcium 40 mg 02/02/18 21:00 02/02/18 20:07 Lipitor PO 40 mg HS JADEN Administration Clopidogrel Bisulfate 75 mg 02/03/18 09:00 02/03/18 08:28 Plavix PO 75 mg DAILY JADEN Administration Fenofibrate 160 mg 02/03/18 09:00 02/03/18 08:28 Lofibra PO 160 mg DAILY JADEN Administration Fluoxetine HCl 20 mg 02/03/18 09:00 02/03/18 08:28 Prozac PO 20 mg DAILY JADEN Administration Lamotrigine 200 mg 02/02/18 21:00 02/02/18 20:07 Lamictal PO 200 mg HS JADEN Administration Soliqua 100 Unit-33 48 units 02/03/18 09:00 02/03/18 08:29 Mcg Pen SQ Not Given QAM JADEN Victoza 1.8 mg 02/03/18 09:00 02/03/18 08:30 SQ Not Given DAILY JADEN Ropinirole HCl 0.5 mg 02/02/18 21:00 02/02/18 20:07 Requip PO 0.5 mg HS JADEN Administration Intake and Output 02/02/18 02/03/18 02/03/18 22:59 06:59 14:59 Intake Total 120 476 Output Total 700 Balance -580 476 Intake: Oral 120 476 Output: Urine 700 Other: # Voids 1 Weight 99.9 kg 02/03/18 06:15 02/03/18 06:15 Assessment and Plan Assessment: #1 episode of second-degree type II AV block while laying flat and eating #2 history of CAD and prior PCI in 2008 #3 PAD #4 hypertension #5 hyperlipidemia Plan: From cardiology's perspective, we will check TSH. We will schedule the patient for a 30 day event monitor from our office. Patient will follow-up as an outpatient with Dr. CASSY Huang. 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 Patient was seen and examined.
--- NOTE | 2018-02-03 11:04 | P.PN ---
Subjective Progress Note Date: 02/03/18 This is a 52-year-old male patient of Dr. Sweeney. Patient presented for an elective right lower extremity angiogram via left femoral artery with Dr. Fall. she has a known past medical history of sepsis from dog bite which he was recently mid to the intensive care unit in September. 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 patient is currently resting comfortably in bed with no complaints. Patient has good pulse in right lower extremity. At this time patient denies chest pain or shortness of breath. Patient denies nausea vomiting or diarrhea. Patient denies any urinary symptoms. On 02/03/2018 patient is currently resting comfortably bed with no complaints. Cardiology services were consulted last night due to patient having a pause. This time patient denies chest pain or shortness of breath. Patient denies nausea vomiting or diarrhea. Patient denies any urinary burning or frequency. Objective - Vital Signs Vital signs: Vital Signs Temp 98.1 F 02/03/18 08:00 Pulse 80 02/03/18 08:00 Resp 16 02/03/18 08:00 BP 113/67 02/03/18 08:00 Pulse Ox 95 02/03/18 08:00 Intake & Output 02/02/18 02/03/18 02/03/18 18:59 06:59 18:59 Intake Total 270 476 Output Total 700 Balance 270 -700 476 Weight 99.79 kg 99.9 kg Intake: IV 150 Oral 120 476 Output: Urine 700 Other: # Voids 1 - Exam Head normocephalic Neck supple Lungs clear to auscultation bilaterally no wheezing or crackles Heart regular rate and rhythm S1-S2, no rub or gallop Abdomen is soft nontender nondistended positive bowel sounds no hepatosplenomegaly Extremities no edema Neuro alert and orientated to 3 - Labs CBC & Chem 7: 02/03/18 06:15 02/03/18 06:15 Labs: Abnormal Lab Results - Last 24 Hours (Table) 02/02/18 02/02/18 02/02/18 Range/Units 11:28 17:09 20:41 RDW (11.5-15.5) % Sodium (137-145) mmol/L Glucose (74-99) mg/dL POC Glucose (mg/dL) 219 H 245 H 220 H (75-99) mg/dL 02/03/18 02/03/18 02/03/18 Range/Units 06:11 06:15 06:15 RDW 16.2 H (11.5-15.5) % Sodium 136 L (137-145) mmol/L Glucose 245 H (74-99) mg/dL POC Glucose (mg/dL) 276 H (75-99) mg/dL Assessment and Plan Assessment: 1. peripheral vascular disease. Status post right lower extremity angiogram with Dr. Fall. Patient maintained on Plavix 2. History of sepsis due to dog bite in September of this year 3. History of CML status post chemotherapy and bone marrow transplant in 2006 4. 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 Patient previously stopped taking rejection medications 5. Diabetes mellitus type 2. home medications resumed 6. History of asthma. No exacerbation at this time 7. Mood disorder. Patient maintained on Lamictal 8. History of coronary artery disease with previous cardiac stents in 2008 9. Second degree type II AV block while laying flat needing. Cardiology service consulted. TSH level has been ordered. Patient to be scheduled for 30 day event monitor from cardiology. Patient to follow-up outpatient with Dr. Feli Huang. Discussed case with cardiology services nurse thelma Berumen. 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 I have reviewed the Nurse Practitioner's notes and agree with the documented findings and plan of care
[2018-02-03 11:18] LABS: Glucose,Whole Blood 276 mg/dL (75-99)
[2018-02-03 14:53] VITALS: BP 116/71; PULSE 84
--- NOTE | 2018-02-03 15:08 | P.PN ---
Progress Note - Text Progress Note Date: 02/03/18 patient is without complaints. He is ambulatory. He has some minor discomfort at the puncture wound. Examination will extremities demonstrates no edema noted in either lower extremity. Femoral, popliteal, dorsalis pedis and posterior tibial pulses are intact on the right. Toes are freely movable and nontender on the right. Impression: Satisfactory progress status post right lower extremity atherectomy. Plan: Patient is stable for discharge. Patient is to continue his home medications as prior. He is allowed to shower over his wounds. He is to follow-up with Dr. Fall in the office in 1-2 weeks and to call for an appointment. There are no restrictions from a surgical standpoint reference to physical activity. He is to notify us of increasing pain swelling or other abnormality should be any occur.
[2018-02-04] MEDS ORDERED: metFORMIN 500 MG TAB PO SCH (17:30)
== END 2018-02-03 16:12 | disposition home or self-care (01) ==
LOC: CATHCVL 05:49 → 3SCARD 10:27 → CATHCVL 02-03 16:12
PROVIDERS: ATTEND Surgery
DX: I70.213 Atherosclerosis of native arteries of extremities with intermittent claudication, bilateral legs (principal); E11.51 Type 2 diabetes mellitus with diabetic peripheral angiopathy without gangrene; Z98.62 Peripheral vascular angioplasty status; I44.1 Atrioventricular block, second degree; I25.119 Atherosclerotic heart disease of native coronary artery with unspecified angina pectoris; E78.5 Hyperlipidemia, unspecified; I10 Essential (primary) hypertension; J45.909 Unspecified asthma, uncomplicated; M19.90 Unspecified osteoarthritis, unspecified site; E07.9 Disorder of thyroid, unspecified; B02.9 Zoster without complications; F41.9 Anxiety disorder, unspecified; G47.33 Obstructive sleep apnea (adult) (pediatric); G56.03 Carpal tunnel syndrome, bilateral upper limbs; F39 Unspecified mood [affective] disorder; Z85.6 Personal history of leukemia; T86.09 Other complications of bone marrow transplant; D89.813 Graft-versus-host disease, unspecified; K08.199 Complete loss of teeth due to other specified cause, unspecified class; Z91.14 Patient's other noncompliance with medication regimen; Z92.21 Personal history of antineoplastic chemotherapy; Z86.19 Personal history of other infectious and parasitic diseases; Z95.5 Presence of coronary angioplasty implant and graft; Z99.89 Dependence on other enabling machines and devices; Z79.899 Other long term (current) drug therapy; Z79.4 Long term (current) use of insulin; Z79.02 Long term (current) use of antithrombotics/antiplatelets; Z79.2 Long term (current) use of antibiotics; Z79.82 Long term (current) use of aspirin; Z88.0 Allergy status to penicillin; Z87.891 Personal history of nicotine dependence; Z96.652 Presence of left artificial knee joint
CPT/HCPCS: 37225; 85347; 80053; 84443; 85025; C1894 ×2; C1769 ×5; C1725; C1887; C1714; C1884; C2623; J2250; J2001; J3010; J1644; J0690; Q9966

== ENCOUNTER 2019-02-28 18:31 | Emergency (ER) | payer BC, MEDICARE ==
[2019-02-28 18:47] VITALS: BP 128/84; PULSE 97; RESP 18; TEMP 98
[2019-02-28] MEDS ORDERED: LIDOCAINE 1% INJ 10MG/ML (20 ML MDV) SQ ONE (18:56)
[2019-02-28] MEDS ORDERED: IBUPROFEN 600 MG TAB PO STA (18:56)
[2019-02-28] MEDS ORDERED: CEPHALEXIN 500MG STARTER PACK 4 CAP BTL PO STA (19:29)
--- NOTE | 2019-02-28 19:32 | ED ---
Wound/Laceration HPI - General Chief Complaint: Wound/Laceration Stated Complaint: lt leg lac Time Seen by Provider: 02/28/19 18:49 Source: patient Mode of arrival: ambulatory Limitations: no limitations - History of Present Illness Initial Comments: 53-year-old male patient presents to the emergency department today for evaluation of laceration to the left lateral calf. Patient states he was taking a bag of trash out to the road, a rough piece of porcelain cut through his pants and cut his leg. Patient was able to get the bleeding under control. States his tetanus is up-to-date in the last 5 years. Denies any numbness or tingling to the lower extremity. Denies any pain radiating to his foot or up the thigh. Denies any other injuries. Patient does have history of leukemia and bone marrow transplant. Patient denies any headache, neck pain, back pain, chest pain, shortness of breath, dizziness, weakness, abdominal pain, nausea, vomiting, or difficulties with bowel movements or urination. - Related Data Home Medications Medication Instructions Recorded Confirmed lamoTRIgine [LaMICtal] 200 mg PO HS 10/27/13 02/02/18 Insulin Glargine/Lixisenatide 48 units SQ QAM 08/10/17 02/02/18 [Soliqua 100 Unit-33 Mcg/ml Pen] rOPINIRole HCL [Requip] 0.5 mg PO HS 09/21/17 02/02/18 Atorvastatin [Lipitor] 40 mg PO HS 01/28/18 02/02/18 FLUoxetine HCL 20 mg PO DAILY 01/28/18 02/02/18 Fenofibrate Nanocrystallized 145 mg PO DAILY 01/28/18 02/02/18 [Tricor] Liraglutide [Victoza 2-Luke] 1.8 mg SQ DAILY 01/28/18 02/02/18 Sulfamethox-Tmp 800-160Mg [Bactrim 1 tab PO Q12HR 01/28/18 02/02/18 DS 800-160 mg] Aspirin 81 mg PO ONCE 02/02/18 02/02/18 Previous Rx's Medication Instructions Recorded metFORMIN HCL 1,000 mg PO BID #0 08/11/17 Clopidogrel [Plavix] 75 mg PO DAILY tab 08/26/17 Cephalexin [Keflex] 500 mg PO Q12HR #10 cap 02/28/19 Allergies Allergy/AdvReac Type Severity Reaction Status Date / Time Penicillins Allergy Unknown Verified 02/28/19 18:44 Childhood Review of Systems ROS Statement: Those systems with pertinent positive or pertinent negative responses have been documented in the HPI. ROS Other: All systems not noted in ROS Statement are negative. Past Medical History Past Medical History: Asthma, Coronary Artery Disease (CAD), Cancer, Chest Pain / Angina, Diabetes Mellitus, Hyperlipidemia, Hypertension, Osteoarthritis (OA), Pneumonia, Sleep Apnea/CPAP/BIPAP, Thyroid Disorder, Vascular Disorder Additional Past Medical History / Comment(s): CML-chronic anemia, immmunosuppressed, not using CPAP, carpal tunnel bilaterally, previous toe on each foot fx.He has chronic dry mucosa from the qwtwq-ejrkum-vaxu disease especially of the eyes and oral cavity. This necessitated the utilization special contacts and removal of his teeth. History of Any Multi-Drug Resistant Organisms: None Reported Past Surgical History: Heart Catheterization With Stent, Joint Replacement Additional Past Surgical History / Comment(s): BONE MARROW TRANSPLANT 2006, L KNEE scope & REPLACEMENT, SEPTAL SURG, BMTs bilateral ears, hemorrhoidectomy, colonoscopy, vasectomy, recent aortogram, atherectomy with ballon angioplasty 08/25/17 Past Anesthesia/Blood Transfusion Reactions: No Reported Reaction Additional Past Anesthesia/Blood Transfusion Reaction / Comment(s): Pt has received blood without reaction. mom had problems with dyes and anesthesia Date of Last Stent Placement:: 2007 Past Psychological History: Anxiety Smoking Status: Former smoker Past Alcohol Use History: Occasional Past Drug Use History: None Reported - Past Family History Father Family Medical History: Coronary Artery Disease (CAD) Additional Family Medical History / Comment(s): Father had triple bypass. He committed suicide. Mother Family Medical History: Dementia Additional Family Medical History / Comment(s): Mother at age 72yrs. Daughter(s) Family Medical History: Blood Disorder General Exam Limitations: no limitations General appearance: alert, in no apparent distress, other (This is a well-deve loped, well-nourished adult male patient in no acute distress. Vital signs upon presentation temperature 98.0F, pulse 97, respirations 18, blood pressure 128/84, pulse ox 97% on room air) Eye exam: Present: normal appearance, PERRL, EOMI. Absent: scleral icterus, conjunctival injection, periorbital swelling ENT exam: Present: normal exam, normal oropharynx, mucous membranes moist, TM's normal bilaterally Respiratory exam: Present: normal lung sounds bilaterally. Absent: respiratory distress, wheezes, rales, rhonchi, stridor Cardiovascular Exam: Present: regular rate, normal rhythm, normal heart sounds. Absent: systolic murmur, diastolic murmur, rubs, gallop, clicks Neurological exam: Present: alert, oriented X3, CN II-XII intact Psychiatric exam: Present: normal affect, normal mood Skin exam: Present: warm, dry, intact, normal color. Absent: rash Course Vital Signs 02/28/19 18:44 Temperature 98 F Pulse Rate 97 Respiratory 18 Rate Blood Pressure 128/84 O2 Sat by Pulse 97 Oximetry Procedures - Laceration Laceration #1 Consent Obtained: verbal consent Indication: laceration Site: lower extremity Size (cm): 5 Description: linear Depth: simple, single layer Anesthetic Used: lidocaine 1% Anesthesia Technique: local infiltration Amount (mls): 5 Pre-repair: irrigated extensively Type of Sutures: nylon Size of Sutures: 4-0, 5-0 Number of Sutures: 7 Technique: simple, interrupted Patient Tolerated Procedure: well, no complications Medical Decision Making - Medical Decision Making 53-year-old male patient presents to the emergency department today for evaluation of laceration to the left lateral calf. Physical examination did reveal 5 cm simple laceration to the left lateral calf. This was repaired as documented. Patient's tetanus vaccine is up-to-date. Given history of leukemia and bone marrow transplant we will start antibiotics for infection prophylaxis. He is instructed to follow-up with his primary care physician for recheck in 1-2 days. He is instructed to return in 10-14 days for suture removal. Return parameters were discussed in detail. He verbalizes understanding and agrees with this plan. Disposition Clinical Impression: Laceration of left leg Disposition: HOME SELF-CARE Condition: Good Instructions (If sedation given, give patient instructions): Care For Your Stitches (ED), Laceration (ED) Additional Instructions: Cleanse wound twice daily with warm water and antibacterial soap. Monitor for signs of infection including but not limited to redness, swelling, drainage of pus, fever, or chills. Complete antibiotic prescription for prevention of infection. Return for removal of stitches in 14 days. Follow-up with your primary care physician for recheck of the area in 1-2 days. Return to the emergency department for any other new, worsening, or concerning symptoms. Prescriptions: Cephalexin [Keflex] 500 mg PO Q12HR #10 cap Is patient prescribed a controlled substance at d/c from ED?: No Referrals: Марина Sweeney DO [Primary Care Provider] - 1-2 days Time of Disposition: 19:31
== END 2019-02-28 19:45 | disposition home or self-care (01) ==
LOC: EC 18:31
DX: S81.812A Laceration without foreign body, left lower leg, initial encounter (principal); I25.10 Atherosclerotic heart disease of native coronary artery without angina pectoris; I10 Essential (primary) hypertension; E78.5 Hyperlipidemia, unspecified; E11.9 Type 2 diabetes mellitus without complications; G47.30 Sleep apnea, unspecified; M19.90 Unspecified osteoarthritis, unspecified site; F41.9 Anxiety disorder, unspecified; Z79.82 Long term (current) use of aspirin; Z79.4 Long term (current) use of insulin; Z79.899 Other long term (current) drug therapy; Z88.0 Allergy status to penicillin; Z95.5 Presence of coronary angioplasty implant and graft; Z96.652 Presence of left artificial knee joint; Z85.6 Personal history of leukemia; Z94.81 Bone marrow transplant status; W26.9XXA Contact with unspecified sharp object(s), initial encounter
CPT/HCPCS: 99282; 12002; J2001

== ENCOUNTER 2019-06-07 17:22 | Emergency (ER) | payer BC, MEDICARE ==
[2019-06-07 17:31] VITALS: BP 153/90; PULSE 93; RESP 20; TEMP 97.9
[2019-06-07] MEDS ORDERED: DOXYCYCLINE 100 MG CAP PO STA (18:32)
--- NOTE | 2019-06-07 18:50 | ED ---
General Adult HPI - General Chief complaint: Animal Bite Stated complaint: nose lac Time Seen by Provider: 06/07/19 18:16 Source: patient, RN notes reviewed Mode of arrival: ambulatory Limitations: no limitations - History of Present Illness Initial comments: 53-year-old male with a complicated past medical history presents to the emergency department for a chief complaint of animal bite. Patient states that he was not paying attention to his pet parrot so it bit him on the right nares. Denies through and through. Patient states that he has needed antibiotics in the past for dog bite so he thought he should present to the emergency department for this. Patient is up-to-date on his tetanus. Research concludes that parents do not carry rabies however patient states the parrot is up-to-date on all necessary immunizations. Patient was on immunosuppressants years ago for bone marrow transplant but states he is no longer on any immunosuppressants whatsoever.Patient has no other complaints at this time including shortness of breath, chest pain, abdominal pain, nausea or vomiting, headache, or visual changes. - Related Data Home Medications Medication Instructions Recorded Confirmed lamoTRIgine [LaMICtal] 200 mg PO HS 10/27/13 02/02/18 Insulin Glargine/Lixisenatide 48 units SQ QAM 08/10/17 02/02/18 [Soliqua 100 Unit-33 Mcg/ml Pen] rOPINIRole HCL [Requip] 0.5 mg PO HS 09/21/17 02/02/18 Atorvastatin [Lipitor] 40 mg PO HS 01/28/18 02/02/18 FLUoxetine HCL 20 mg PO DAILY 01/28/18 02/02/18 Fenofibrate Nanocrystallized 145 mg PO DAILY 01/28/18 02/02/18 [Tricor] Liraglutide [Victoza 2-Luke] 1.8 mg SQ DAILY 01/28/18 02/02/18 Sulfamethox-Tmp 800-160Mg [Bactrim 1 tab PO Q12HR 01/28/18 02/02/18 DS 800-160 mg] Aspirin 81 mg PO ONCE 02/02/18 02/02/18 Previous Rx's Medication Instructions Recorded metFORMIN HCL 1,000 mg PO BID #0 08/11/17 Clopidogrel [Plavix] 75 mg PO DAILY tab 08/26/17 Cephalexin [Keflex] 500 mg PO Q12HR #10 cap 02/28/19 Doxycycline [Vibramycin] 100 mg PO BID 14 Days #28 capsule 06/07/19 Allergies Allergy/AdvReac Type Severity Reaction Status Date / Time Penicillins Allergy Unknown Verified 06/07/19 17:30 Childhood Review of Systems ROS Statement: Those systems with pertinent positive or pertinent negative responses have been documented in the HPI. ROS Other: All systems not noted in ROS Statement are negative. Past Medical History Past Medical History: Asthma, Coronary Artery Disease (CAD), Cancer, Chest Pain / Angina, Diabetes Mellitus, Hyperlipidemia, Hypertension, Osteoarthritis (OA), Pneumonia, Sleep Apnea/CPAP/BIPAP, Thyroid Disorder, Vascular Disorder Additional Past Medical History / Comment(s): CML-chronic anemia, i mmmunosuppressed, not using CPAP, carpal tunnel bilaterally, previous toe on each foot fx.He has chronic dry mucosa from the qfqvz-dykjdv-fomv disease especially of the eyes and oral cavity. This necessitated the utilization special contacts and removal of his teeth. History of Any Multi-Drug Resistant Organisms: None Reported Past Surgical History: Heart Catheterization With Stent, Joint Replacement Additional Past Surgical History / Comment(s): BONE MARROW TRANSPLANT 2006, L KNEE scope & REPLACEMENT, SEPTAL SURG, BMTs bilateral ears, hemorrhoidectomy, colonoscopy, vasectomy, recent aortogram, atherectomy with ballon angioplasty 08/25/17 Past Anesthesia/Blood Transfusion Reactions: No Reported Reaction Additional Past Anesthesia/Blood Transfusion Reaction / Comment(s): Pt has received blood without reaction. mom had problems with dyes and anesthesia Date of Last Stent Placement:: 2007 Past Psychological History: Anxiety Smoking Status: Former smoker Past Alcohol Use History: Occasional Past Drug Use History: None Reported - Past Family History Father Family Medical History: Coronary Artery Disease (CAD) Additional Family Medical History / Comment(s): Father had triple bypass. He committed suicide. Mother Family Medical History: Dementia Additional Family Medical History / Comment(s): Mother at age 72yrs. Daughter(s) Family Medical History: Blood Disorder General Exam Limitations: no limitations General appearance: alert, in no apparent distress Head exam: Present: atraumatic, normocephalic, normal inspection Eye exam: Present: normal appearance, PERRL, EOMI. Absent: scleral icterus, conjunctival injection, periorbital swelling ENT exam: Present: normal oropharynx, mucous membranes moist, normal external ear exam, other (Patient has a less than 1 cm laceration noted to the lateral right nares. This is not through and through. It is well approximated.) Neck exam: Present: normal inspection, full ROM. Absent: tenderness, meningismus, lymphadenopathy Respiratory exam: Present: normal lung sounds bilaterally. Absent: respiratory distress, wheezes, rales, rhonchi, stridor Cardiovascular Exam: Present: regular rate, normal rhythm, normal heart sounds. Absent: systolic murmur, diastolic murmur, rubs, gallop, clicks Neurological exam: Present: alert Course Vital Signs 06/07/19 17:27 Temperature 97.9 F Pulse Rate 93 Respiratory 20 Rate Blood Pressure 153/90 O2 Sat by Pulse 95 Oximetry Medical Decision Making - Medical Decision Making Wound was cleaned thoroughly with saline pressure irrigation. At this time given infection risk it will not be sutured as it is well approximated. Patient is agreeable to this. Patient is up-to-date on tetanus in the past 5 years. Rabies is not a concern in Parrots however patient states the animal is up-to-date on all other immunizations that are necessary. oral doxycycline was started as prophylaxis for pasteurellosis and psittacosis infection common in birds. At this time patient will be discharged home after given a dose of do xycycline here in the emergency department. Prescription was sent to pharmacy. He will follow up with his primary care for a recheck. He will return here for any worsening symptoms including those for infection. This was discussed in detail with the patient.I discussed this case with attending Dr. Snyder who agrees with this assessment and treatment plan. Disposition Clinical Impression: Bite by animal Disposition: HOME SELF-CARE Condition: Good Instructions (If sedation given, give patient instructions): Animal Bite (ED) Additional Instructions: Please take antibiotic as directed. Keep the wound clean. Monitor for signs of infection such as spreading redness, purulent drainage, fevers, or facial swelling. Return to the emergency Department if these occur. Otherwise follow- up with primary care in 1-2 days for a recheck. Prescriptions: Doxycycline [Vibramycin] 100 mg PO BID 14 Days #28 capsule Is patient prescribed a controlled substance at d/c from ED?: No Referrals: Tony Sweeney MD [Primary Care Provider] - 1-2 days Time of Disposition: 18:48
== END 2019-06-07 19:01 | disposition home or self-care (01) ==
LOC: EC 17:22
DX: S01.25XA Open bite of nose, initial encounter (principal); I25.119 Atherosclerotic heart disease of native coronary artery with unspecified angina pectoris; E11.9 Type 2 diabetes mellitus without complications; E78.5 Hyperlipidemia, unspecified; I10 Essential (primary) hypertension; M19.90 Unspecified osteoarthritis, unspecified site; F41.9 Anxiety disorder, unspecified; Z87.891 Personal history of nicotine dependence; Z88.0 Allergy status to penicillin; Z79.4 Long term (current) use of insulin; Z79.82 Long term (current) use of aspirin; Z79.899 Other long term (current) drug therapy; Z95.5 Presence of coronary angioplasty implant and graft; Z96.652 Presence of left artificial knee joint; Z94.81 Bone marrow transplant status; Z85.6 Personal history of leukemia; W61.01XA Bitten by parrot, initial encounter
CPT/HCPCS: 99283

== ENCOUNTER → 2019-11-17 | Outpatient (CLI) | payer BC, MEDICARE ==
[2019-11-17 15:13] LABS: African American GFR (CKD) >90 (>60 ml/min/1.73 sqM); Anion Gap 9 mmol/L; Blood Urea Nitrogen 15 mg/dL (9-20); Carbon Dioxide 24 mmol/L (22-30); Chloride 102 mmol/L (98-107); Non-African American GFR(CKD) >90 (>60 ml/min/1.73 sqM); Potassium 4.7 mmol/L (3.5-5.1); Sodium 135 mmol/L (137-145)
[2019-11-17 15:19] LABS: Basophils # (A) 0.1 k/uL (0-0.2); Basophils % (A) 1 %; Eosinophils # (A) 0.1 k/uL (0-0.7); Eosinophils % (A) 1 %; HCT 44.7 % (39.0-53.0); HGB 14.3 gm/dL (13.0-17.5); Lymphocytes # (A) 4.7 k/uL (1.0-4.8); Lymphocytes % (A) 51 %; MCH 28.5 pg (25.0-35.0); MCHC 31.9 g/dL (31.0-37.0); MCV 89.3 fL (80.0-100.0); Mean Platelet Volume 8.1; Monocytes # (A) 0.6 k/uL (0-1.0); Monocytes % (A) 7 %; Neutrophils # (A) 3.5 k/uL (1.3-7.7); Neutrophils % (A) 38 %; Platelet Count 287 k/uL (150-450); RBC 5.01 m/uL (4.30-5.90); RDW 15.5 % (11.5-15.5); WBC 9.1 k/uL (3.8-10.6)
== END | disposition home or self-care (01) ==
LOC: LABPAT 14:07
PROVIDERS: ATTEND Surgery
DX: Z01.818 Encounter for other preprocedural examination (principal); I74.3 Embolism and thrombosis of arteries of the lower extremities
CPT/HCPCS: 80051; 82565; 84520; 85025

== ENCOUNTER 2019-12-13 08:41 | Day surgery (SDC) | payer BC, MEDICARE ==
[2019-11-24 10:49] VITALS: BMI 31.3
[~2019-12-13 08:41] MED LIST changes: +SODIUM CHLORIDE 0.9% 1,000 ML in EMPTY BAG 1 BAG IV ONE; -ceFAZolin IN SWFI 2 GM/20 ML SYRINGE IVP ONE
[2019-12-13] MEDS ORDERED: SODIUM CHLORIDE 0.9% 1,000 ML IV ONE (09:02)
[2019-12-13] MEDS ORDERED: INSULIN ASPART (NovoLOG) 100 UNIT/ML VIAL SQ ONE ×2 (09:15→12:46)
[2019-12-13 09:21] LABS: Glucose,Whole Blood 306 mg/dL (75-99)
[2019-12-13] MEDS ORDERED: fentaNYL (PF) 50 MCG/ML 2 ML AMP ONE (10:19)
[2019-12-13] MEDS ORDERED: PHENYLEPHRINE-0.9% NACL SYG 1 MG/10 ML SYRINGE ONE (10:19)
[2019-12-13] MEDS ORDERED: PROPOFOL 10 MG/ML 20 ML VIAL IV ONE (10:19)
[2019-12-13] MEDS ORDERED: HEPARIN SODIUM,PORCINE 10,000 UNIT/ML 1 ML VIAL ONE (10:19)
[2019-12-13] MEDS ORDERED: MIDAZOLAM 2 MG/2 ML VIAL ONE (10:19)
[2019-12-13] MEDS ORDERED: LIDOCAINE 1% INJ 10MG/ML (20 ML MDV) ONE (10:19)
[2019-12-13] MEDS ORDERED: LIDOCAINE 1% INJ 10MG/ML (20 ML MDV) SQ ONE (10:40)
[2019-12-13] MEDS ORDERED: SODIUM CHLORIDE 0.9% 500 ML 500 ML IV ONE (11:22)
[2019-12-13] MEDS ORDERED: IOPAMIDOL-250 100ML BTL INTRAARTER ONE (12:02)
[2019-12-13 12:43] LABS: Glucose,Whole Blood 241 mg/dL (75-99)
--- NOTE | 2019-12-13 13:11 | IR ---
Fluoroscopy HISTORY: Pain in left leg 17.7 minutes fluoroscopy time supplied to the referring clinician. 366 intraoperative C-arm images d ocument the procedure. See dictated report from vascular surgery.
[2019-12-13 20:39] VITALS: BP 130/87; PULSE 91; RESP 18; TEMP 97.7
[2019-12-13] MEDS ORDERED: lamoTRIgine 100 MG TAB PO SCH (21:00)
[2019-12-13] MEDS ORDERED: ATORVASTATIN 40 MG TAB PO SCH (21:00)
[2019-12-14] MEDS ORDERED: NON FORMULARY DRUG (Liraglutide [Victoza 2-Pak] 0.6 MG/0.1 ML Pen.Injctr) SQ SCH (09:00)
[2019-12-14] MEDS ORDERED: LIRAGLUTIDE SQ SCH (09:00)
[2019-12-14] MEDS ORDERED: INSULIN DEGLUDEC SQ SCH (09:00)
[2019-12-14] MEDS ORDERED: [UNRECOGNIZED DRUG - OTHER] SQ SCH (09:00)
[2019-12-14] MEDS ORDERED: FLUoxetine HCL 20 MG CAP PO SCH (09:00)
[2019-12-14] MEDS ORDERED: ASPIRIN 81 MG PO SCH ×2 (09:00)
[2019-12-14] MEDS ORDERED: FENOFIBRATE 160 MG TAB PO SCH (09:00)
[2019-12-14] MEDS ORDERED: INS SQ SCH (09:00)
[2019-12-14] MEDS ORDERED: CLOPIDOGREL 75 MG TAB PO SCH ×2 (09:00)
--- NOTE | 2019-12-18 18:09 | P.OP ---
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 Aortogram with bilateral lower extremity runoffs via right common femoral artery access under ultrasound guidance. 2. Selective left lower extremity femoral-popliteal and tibial peroneal angiogram 3. Percutaneous atherectomy of the left superficial femoral artery with Hawk one device 4. Intravascular ultrasound of the femoral, superficial femoral, popliteal artery 5. Percutaneous transluminal balloon angioplasty of the superficial femoral artery, above-knee popliteal artery 6. Percutaneous transluminal stenting with a covered Viabahn 7x25 cm stent 7. Percutaneous closure with Vascade device Surgeon: Eufemia Anesthesia: LMA Estimated blood loss: 5 mL Complications: None Condition: Stable with multiphasic DP and PT signal bilaterally Findings: Aorta: Patent with atherosclerotic disease without stenosis. Iliacs: Bilateral common, external and internal iliacs with minimal disease without significant stenosis Femorals: Bilateral superficial femoral artery atherosclerotic disease with HOOKER OPERATOR x 20 cm noted on the left with areas of stenosis of the right distal SFA. Popliteal: Bilateral disease with areas of stenosis around 50% below the knee bilaterally. Tibials: 2 vessel runoff bilaterally Operative narrative: After written informed consent was obtained the patient all risks benefits competitions were described the patient is brought to the Machine Heel Sprayer and laid in a supine position. The area of the right groin was prepped and draped in the usual sterile fashion. Local anesthesia with general anesthesia was performed with continuous pulse ox monitoring and EKG monitoring. Utilizing ultrasound the right femoral artery was visualized and shown to be patent without any significant plaque. Utilizing a multipurpose needle under ultraso und guidance the artery was accessed. Guidewire was placed followed by 5 south african sheath. 035 Glidewire was then placed into the aorta followed by pigtail catheter. Angiogram was then obtained of the aorta. Catheter was then placed at the bifurcation and lower extremity runoffs were obtained. The left superficial femoral artery demonstrated a long chronic total occlusion and therefore the patient was administered heparin and followed with ACTs and a 7 south african long up an over sheath was placed after the 5 south african sheath was removed. Using an 035 glidewire and crossing catheter the left SFA occlusion was crossed and angiogram was obtained demonstrating intraluminal crossing. Once across a spider filter was placed at the popliteal artery. An atherectomy was then performed with a Hawk One device with multiple passes through the lesion. An intravascular ultrasound catheter was placed and the femoral, superficial femoral and popliteal arteries were visualized. There was thrombus noted throughout the superficial femoral artery and therefore balloon angioplasty followed by a covered stent was placed. A Viabahn 25cm stent was placed across the lesion after balloon angiplasty was performed. Final angiogram was then obtained demonstrating complete resolution of the occlusion with no residual stenosis noted with 2 vessel runoff to the ankle. Once completed all guidewires, catheters and sheaths were removed and vascade closure device was placed for hemostasis in usual fashion. Patient tolerated procedure well and had multiphasic DP and PT signals bilaterally and was sent to PACU for recovery Plan - Discharge Summary Discharge Rx Participant: No New Discharge Prescriptions: No Action lamoTRIgine [LaMICtal] 200 mg PO HS metFORMIN HCL 1,000 mg PO BID #0 Clopidogrel [Plavix] 75 mg PO DAILY tab rOPINIRole HCL [Requip] 0.5 mg PO HS Liraglutide [Victoza 2-Luke] 1.8 mg SQ DAILY FLUoxetine HCL 20 mg PO DAILY Atorvastatin [Lipitor] 40 mg PO HS Fenofibrate Nanocrystallized [Tricor] 145 mg PO DAILY Aspirin 81 mg PO DAILY Insulin Degludec/Liraglutide [Xultophy 100 Unit-3.6MG/ml Pen] 42 unit SQ QAM Discharge Medication List lamoTRIgine [LaMICtal] 200 mg PO HS 10/27/13 [History] metFORMIN HCL 1,000 mg PO BID #0 08/11/17 [Rx] Clopidogrel [Plavix] 75 mg PO DAILY tab 08/26/17 [Rx] rOPINIRole HCL [Requip] 0.5 mg PO HS 09/21/17 [History] Atorvastatin [Lipitor] 40 mg PO HS 01/28/18 [History] FLUoxetine HCL 20 mg PO DAILY 01/28/18 [History] Fenofibrate Nanocrystallized [Tricor] 145 mg PO DAILY 01/28/18 [History] Liraglutide [Victoza 2-Luke] 1.8 mg SQ DAILY 01/28/18 [History] Aspirin 81 mg PO DAILY 02/02/18 [History] Insulin Degludec/Liraglutide [Xultophy 100 Unit-3.6MG/ml Pen] 42 unit SQ QAM 08/27/20 [History] Follow up Appointment(s)/Referral(s): Alber Fall DO [STAFF PHYSICIAN] - 2 Weeks (Office is currently closed, please call the office in the morning and schedule follow up appointment.) Patient Instructions/Handouts: Peripheral Vascular Stent Placement (GEN) Discharge Disposition: HOME SELF-CARE
== END 2019-12-13 21:00 | disposition home or self-care (01) ==
LOC: CATHCVL 08:41 → 3NCARDOBS 12:30 → CATHCVL 21:00
PROVIDERS: ATTEND Surgery
DX: I70.213 Atherosclerosis of native arteries of extremities with intermittent claudication, bilateral legs (principal); I70.92 Chronic total occlusion of artery of the extremities; I25.2 Old myocardial infarction; I25.10 Atherosclerotic heart disease of native coronary artery without angina pectoris; I10 Essential (primary) hypertension; E78.5 Hyperlipidemia, unspecified; J45.909 Unspecified asthma, uncomplicated; G47.33 Obstructive sleep apnea (adult) (pediatric); E11.9 Type 2 diabetes mellitus without complications; F39 Unspecified mood [affective] disorder; Z95.5 Presence of coronary angioplasty implant and graft; Z79.4 Long term (current) use of insulin; Z79.82 Long term (current) use of aspirin; Z79.02 Long term (current) use of antithrombotics/antiplatelets; Z79.899 Other long term (current) drug therapy; Z88.0 Allergy status to penicillin; Z81.8 Family history of other mental and behavioral disorders
CPT/HCPCS: 37227; 75625; 75716; 85347; C1894 ×2; C1769 ×4; C1725; C1887; C1714; C1753; C1884; C1874; C1760; J2250; J1644; J2001; J3010; J2370; J2704; Q9966

== ENCOUNTER → 2020-09-24 | Outpatient (CLI) | payer BC, MEDICARE ==
[2020-09-24 10:28] LABS: African American GFR (CKD) >90 (>60 ml/min/1.73 sqM); Anion Gap 7 mmol/L; Blood Urea Nitrogen 11 mg/dL (9-20); Carbon Dioxide 28 mmol/L (22-30); Chloride 101 mmol/L (98-107); Non-African American GFR(CKD) >90 (>60 ml/min/1.73 sqM); Sodium 136 mmol/L (137-145)
[2020-09-24 10:32] LABS: Anisocytosis Slight; Basophils # (A) 0.1 k/uL (0-0.2); Basophils % (A) 1 %; Eosinophils # (A) 0.1 k/uL (0-0.7); Eosinophils % (A) 1 %; HCT 46.2 % (39.0-53.0); Lymphocytes # (A) 5.3 k/uL (1.0-4.8); Lymphocytes % (A) 50 %; MCH 28.3 pg (25.0-35.0); MCHC 32.4 g/dL (31.0-37.0); MCV 87.4 fL (80.0-100.0); Mean Platelet Volume 7.4; Monocytes # (A) 0.7 k/uL (0-1.0); Monocytes % (A) 7 %; Neutrophils # (A) 3.9 k/uL (1.3-7.7); Neutrophils % (A) 37 %; Platelet Count 283 k/uL (150-450); RBC 5.29 m/uL (4.30-5.90); RDW 16.2 % (11.5-15.5); WBC 10.5 k/uL (3.8-10.6)
[2020-09-24 12:38] LABS: Poikilocytosis (M) Present
== END | disposition home or self-care (01) ==
LOC: LABPAT 09:45
PROVIDERS: ATTEND Surgery
DX: Z01.812 Encounter for preprocedural laboratory examination (principal); I73.9 Peripheral vascular disease, unspecified
CPT/HCPCS: 36415; 80051; 82565; 84520; 85025

== ENCOUNTER 2020-10-02 08:15 | Day surgery (SDC) | payer BC, MEDICARE ==
[2020-09-26 15:52] VITALS: BMI 31.4
[~2020-10-02 08:15] MED LIST changes: +ASPIRIN 325 MG TAB PO PRN
[2020-10-02 08:56] LABS: Glucose,Whole Blood 272 mg/dL (75-99)
[2020-10-02 08:58] VITALS: TEMP 97.8
[2020-10-02] MEDS ORDERED: LIDOCAINE 1% INJ 10MG/ML (20 ML MDV) SQ ONE (09:27)
[2020-10-02] MEDS: MIDAZOLAM 2 MG/2 ML VIAL IV ONE ×2 (09:30→10:05)
[2020-10-02] MEDS ORDERED: HEPARIN SODIUM 1,000 UN/ML (10ML VL) IV ONE (10:05)
[2020-10-02] MEDS ORDERED: IOPAMIDOL-250 100ML BTL INTRAARTER ONE ×2 (10:33→10:36)
[2020-10-02] MEDS ORDERED: PROTAMINE SULFATE 10 MG/ML 5 ML VIAL IV ONE (10:44)
[2020-10-02] MEDS ORDERED: CLOPIDOGREL 75 MG TAB PO ONE (10:47)
--- NOTE | 2020-10-02 11:47 | IR ---
EXAMINATION TYPE: IR angio abdominal w runoff DATE OF EXAM: 10/02/2020 CLINICAL HISTORY: Peripheral vascular disease. Right leg pain. TECHNIQUE: Fluoroscopy. COMPARISON: None. FINDINGS: Fluoroscopic guidance was provided during abdominal angiogram with lower extremity runoff procedure performed by Dr. Fall. A total of 14 minutes 24 seconds of fluoroscopic time was utiliz ed during the procedure and 860 spot images are acquired. Please refer to surgical note for further details if necessary. IMPRESSION: As Above.
[2020-10-02 14:06] VITALS: RESP 16
[2020-10-02 15:04] VITALS: BP 130/72; PULSE 69
--- NOTE | 2020-10-02 22:12 | P.OP ---
Date of Procedure: 10/02/20 Preoperative Diagnosis: Bilateral lower extremity claudication Gianna classification 3 Postoperative Diagnosis: 1. Bilateral lower extremity claudication Gianna classification 3 2. Right lower extremity superficial femoral artery stenosis greater than 90% with multiple areas of atherosclerotic disease and stenosis 3. Bilateral tibioperoneal arterial occlusive disease with multiple areas of stenosis with 2 vessel runoff to the ankle Procedure(s) Performed: 1. Aortogram with bilateral lower extremity runoff via ultrasound-guided left common femoral artery access 2. Selective right lower extremity angiogram third order catheter placement 3. Right lower extremity percutaneous atherectomy of the superficial femoral artery with Hawk One device 4. Percutaneous transluminal balloon angioplasty of the right superficial femoral artery with Impact Drug-eluting balloon 5. Percutaneous closure of the left common femoral artery with Vascade device 6. Conscious sedation 90 minutes Anesthesia: local, other (Conscious sedation) Surgeon: Alber Fall Estimated Blood Loss (ml): 5 Pathology: none sent Condition: stable Disposition: same day Indications for Procedure: 55-year-old gentleman with history of bilateral lower extremity revascularization of bilateral superficial femoral arteries with left SFA stenting. He underwent right-sided intervention over a year ago and presented recently to the office for his normal evaluation and lower extremity arterial Doppler results. He states he was having significantly more pain in his right lower extremity at the hip and calf with ambulation usually after 2 blocks unless he is walking up stairs where he has severe pain. He is also having increased pain in his left buttock area and hip. His arterial Doppler did decrease from his previous visit And now measured 0.55 on the right An 0.76 on the left and therefore presents today for aortogram and runoff with possible intervention for the right lower extremity. Operative Findings: Lesion length 200 mm, moderate calcification Description of Procedure: After written and informed consent was obtained the patient and all risks, benefits and complications were discussed the patient was brought to the endovascular suite and laid in a supine position. The area of the groins were prepped and draped in the usual sterile fashion. Timeout was performed. Utilizing ultrasound the left common femoral artery was located and shown to be patent without any significant calcification. Under ultrasound guidance a 5 Namibian sheath was placed utilizing Seldinger technique. 035 Glidewire followed by a pigtail catheter was then placed in the abdominal aorta and aortogram with runoff was obtained. Upon runoff was noted there was significant calcific, atherosclerotic disease throughout the right superficial femoral artery with severe stenosis noted at the midportion greater than 90%. The left superficial femoral artery was patent but there was some in-stent stenosis noted. The aorta, iliacs did demonstrate some atherosclerotic disease without any severe stenosis. The right common iliac was then selected and an angled glide catheter was placed and selective right lower extremity angiograms were obtained. Once good visualization of the superficial femoral artery stenosis was viewed and 035 Glidewire was attempted to get pass this area. There was severe stenosis noted but the wire did pass and this was followed by the angled glide catheter. Stiff Glidewire was then placed and the angled glide catheter was removed along with the 5 Namibian sheath and replaced with a 7 Namibian 65 cm Up & Over sheath. Patient was then administered 6000 units of heparin. The glide catheter was then guided once again over the wire past the lesion and a 6 Namibian spider filter was placed. A 7 Namibian Hawk one atherectomy device was then utilized and atherectomy was performed throughout the superficial femoral artery across the lesion. Multiple passes were performed and repeat angiogram was obtained dem onstrating significant improvement of the stenosis throughout. A 6 x 250 mm Impact drug-eluting balloon Was then placed and balloon angioplasty was performed. Once completed Final angiogram was obtained demonstrating less than 10% residual stenosis with good two-vessel runoff to the foot the spider filter was removed and all guidewires and catheters were then removed. The long sheath was then replaced with a short 7 Namibian sheath and utilizing a Vascade device percutaneous closure was performed and pressure was held for hemostasis. The area was cleansed and dressings were placed. The patient tolerated the procedure well and had palpable PT pulse at the conclusion of the procedure.
[2020-10-03] MEDS ORDERED: CLOPIDOGREL 75 MG TAB PO SCH (09:00)
== END 2020-10-02 15:35 | disposition home or self-care (01) ==
LOC: CATHCVL 08:15
PROVIDERS: ATTEND Surgery
DX: I70.213 Atherosclerosis of native arteries of extremities with intermittent claudication, bilateral legs (principal); Z88.0 Allergy status to penicillin
CPT/HCPCS: 37225; 75625; C1894 ×3; C1769 ×4; C1714; C1884; C2623; C1760; J2250; J2720; J2001; J1644; Q9966; 75716

== ENCOUNTER → 2020-10-24 | Outpatient (CLI) | payer BC, MEDICARE ==
[~2020-10-24] MED LIST changes: -ASPIRIN 325 MG TAB PO PRN; +REGADENOSON 0.4 MG/5 ML SYRINGE IV PRN; -SODIUM CHLORIDE 0.9% 1,000 ML in EMPTY BAG 1 BAG IV ONE
--- NOTE | 2020-10-25 12:30 | NM ---
EXAMINATION TYPE: NM stress lexiscan cardiolite DATE OF EXAM: 10/25/2020 COMPARISON: NONE HISTORY: 55-year-old male with orthopnea and shortness of breath TECHNIQUE: After the intravenous administration of 9.7 mCi Tc 99m Sestamibi - Cardiolite resting SPE CT images acquired 45 minutes post injection. The patient received 0.4mg Lexiscan, 25.6 mCi Tc 99m Se stamibi - Stress images obtained 30 minutes post injection FINDINGS: Review of stress and rest SPECT images demonstrates multiple large areas of fixed decreased perfusion especially along the anteroseptal wall and inferior wall. On stress, some of the defect appears to a ccentuate along the apex of the heart. This is corroborated on polar maps. Gated analysis shows globa l hypokinesis with an estimated left ventricular ejection fraction of 33 %. TID is also elevated at 1.26 which is abnormal. IMPRESSION: 1. Decreased LVEF of 33% with global hypokinesis and large fixed defects along the inferior wall and anteroseptal wall. Correlate for ischemic cardiomyopathy. 2. Increased TID which can be seen with inducible multivessel balanced ischemia. 3. Visualized reversible mal-infarct ischemia about the cardiac apex.
--- NOTE | 2020-10-26 08:30 | EST ---
EXERCISE STRESS INDICATION: Chest pain. AGE: 55 SEX: M HT: 5'8" WT: 210 lbs. PROTOCOL: Lexiscan STAGE: NA DURATION OF EXERCISE: NA HEART RATE REST: 83 BLOOD PRESSURE REST: 165/95 MAXIMUM HEART RATE ACHIEVED: 92 MAXIMUM BLOOD PRESSURE: 165/95 85% MPHR: 139 100% MPHR: 164 METS: NA STRESS DATA: Heart rate 83, pressure is 165/95 mmHg. Baseline EKG showed sinus mechanism. 0.4 mg of Lexiscan given over 15 seconds per protocol. Max heart rate was 92 beats per minute. Maximum pressure was 165/95 mmHg. Clinically, the patient did not have any symptoms and the EKG did not show any significant ST or T-wave abnormalities concerning for ischemia. CONCLUSION: 1. Nondiagnostic electrocardiogram stress testing in response to Lexiscan. 2. Please follow up on the Cardiolite portion on a separate report from Radiology Department. MMODL / IJN: [id number] /
== END | disposition home or self-care (01) ==
LOC: RADNMMAIN 09:04
PROVIDERS: ATTEND Physician Assistant
DX: R06.02 Shortness of breath (principal)
CPT/HCPCS: 93017; 78452; A9500; J2785

== ENCOUNTER → 2020-11-14 | Outpatient (CLI) | payer BC, MEDICARE ==
[2020-11-14 10:46] LABS: African American GFR (CKD) >90 (>60 ml/min/1.73 sqM); Blood Urea Nitrogen 12 mg/dL (9-20); Non-African American GFR(CKD) >90 (>60 ml/min/1.73 sqM)
--- NOTE | 2020-11-14 11:31 | CT ---
EXAMINATION TYPE: CT soft tissue neck w con DATE OF EXAM: 11/14/2020 HISTORY: Pulsatile mass left side neck COMPARISON: NONE CT DLP: 482.1 mGycm. Automated Exposure Control for Dose Reduction was Utilized. TECHNIQUE: CT scan of the neck is performed with IV Contrast, patient injected with 100 mL of Isovue 300, axial images are obtained, coronal and sagittal reformatted images are reviewed. FINDINGS: Airway: No gross abnormality seen. Parotid/submandibular glands: Symmetric somewhat small sized bilateral submandibular glands. Symmetri c [id number] fatty infiltration of bilateral parotid glands. Carotid/Vascular Structures: Moderate to severe mixed plaque bilateral carotid bulbs extends into pro ximal internal carotid arteries bilaterally causing significant stenosis approaching 50% on the right with tortuosity and felt greater than 50 % on the left seen best coronal image 37 and sagittal image 43. There is narrowing closer to 75-80% likely present. Moderate peripheral noncalcified plaque at o rigin of left subclavian artery without significant stenosis. Osseous Structures: Bursal abnormal cervical curvature moderate disc space narrowing and spurring at C5-C6 and C6-C7 levels. Posterior spurring effaces the anterior thecal sac at these levels. Other: Metallic BB placed at level of palpable abnormality left neck axial image 51 no suspicious kentrell id or cystic mass or fluid collection is seen at this level. No suspicious adenopathy is noted. No maxwell spicious vascular structure or anomaly is seen. There are some scattered subcentimeter lymph nodes th roughout the neck bilaterally. No suspicious greater than 1 cm neck adenopathy is identified. IMPRESSION: No suspicious mass at area of clinical concern posterior left neck. There is however mode rate to severe plaque bilateral carotid bulb level extending into proximal internal carotid arteries causing stenosis estimated 75-80% in the proximal left internal carotid artery which may be accountin g for patient's symptoms. Advise vascular surgical referral.
== END | disposition home or self-care (01) ==
LOC: RADCTMAIN 10:09
PROVIDERS: ATTEND Family Medicine
DX: I65.23 Occlusion and stenosis of bilateral carotid arteries (principal)
CPT/HCPCS: 82565; 84520; 70491; 36415; Q9967

== ENCOUNTER → 2020-12-17 | Outpatient (CLI) | payer BC, MEDICARE ==
[2020-12-17 15:45] LABS: African American GFR (CKD) >90 (>60 ml/min/1.73 sqM); Anion Gap 9 mmol/L; Blood Urea Nitrogen 14 mg/dL (9-20); Carbon Dioxide 26 mmol/L (22-30); Chloride 100 mmol/L (98-107); Non-African American GFR(CKD) >90 (>60 ml/min/1.73 sqM); Potassium 4.8 mmol/L (3.5-5.1); Sodium 135 mmol/L (137-145)
[2020-12-17 16:05] LABS: Nucleated Red Blood Cells 0 /100 WBC (0-0); Polychromasia Present
[2020-12-18 08:21] LABS: HCT 43.2 % (39.0-53.0); HGB 14.9 gm/dL (13.0-17.5); MCH 30.3 pg (25.0-35.0); MCHC 34.4 g/dL (31.0-37.0); MCV 88.1 fL (80.0-100.0); Monocytes # (M) 0.62 k/uL (0-1.0); Platelet Count 360 k/uL (150-450); Poikilocytosis Slight; RDW 15.9 % (11.5-15.5); WBC 8.8 k/uL (3.8-10.6)
[2020-12-18 10:33] LABS: Eosinophils # (M) 0.09 k/uL (0-0.7); Neutrophils % (M) 26 %; Total Cells Counted 200
== END | disposition home or self-care (01) ==
LOC: LABPAT 15:00
PROVIDERS: ATTEND Surgery
DX: Z01.812 Encounter for preprocedural laboratory examination (principal)
CPT/HCPCS: 36415; 80051; 82565; 84520; 85025

== ENCOUNTER 2020-12-18 07:34 | Day surgery (SDC) | payer BC, MEDICARE ==
[2020-12-13 16:01] VITALS: BMI 30.9
[~2020-12-18 07:34] MED LIST changes: +ALPRAZolam 0.25 MG TAB PO PRN; +ALPRAZolam 0.5 MG TAB PO PRN; +ASPIRIN 325 MG TAB PO PRN; +HEPARIN SODIUM,PORCINE 10,000 UNIT in SODIUM CHLORIDE 0.9% 1,000 ML IRRIGATION PRN; +HEPARIN SODIUM,PORCINE 2,500 UNIT in SODIUM CHLORIDE 0.9% 250 ML IRRIGATION PRN; -REGADENOSON 0.4 MG/5 ML SYRINGE IV PRN; +SODIUM CHLORIDE 0.9% 1,000 ML in EMPTY BAG 1 BAG IV ONE; +ZOLPIDEM 5 MG TAB PO PRN
[2020-12-18] MEDS ORDERED: SODIUM CHLORIDE 0.9% 1,000 ML IV ONE (07:52)
[2020-12-18 08:05] VITALS: RESP 16; TEMP 98.1
[2020-12-18] MEDS ORDERED: INSULIN ASPART (NovoLOG) 100 UNIT/ML VIAL SQ SCH (08:06)
[2020-12-18 08:15] LABS: Basophils # (A) 0.1 k/uL (0-0.2); Basophils % (A) 1 %; Eosinophils # (A) 0.1 k/uL (0-0.7); Eosinophils % (A) 2 %; HCT 44.1 % (39.0-53.0); HGB 14.6 gm/dL (13.0-17.5); Lymphocytes # (A) 4.2 k/uL (1.0-4.8); Lymphocytes % (A) 51 %; MCH 29.6 pg (25.0-35.0); MCHC 33.1 g/dL (31.0-37.0); MCV 89.5 fL (80.0-100.0); Mean Platelet Volume 7.9; Monocytes # (A) 0.7 k/uL (0-1.0); Monocytes % (A) 8 %; Neutrophils # (A) 2.9 k/uL (1.3-7.7); Neutrophils % (A) 35 %; Platelet Count 342 k/uL (150-450); RBC 4.93 m/uL (4.30-5.90); RDW 15.7 % (11.5-15.5); WBC 8.3 k/uL (3.8-10.6)
[2020-12-18 08:19] LABS: Glucose,Whole Blood 305 mg/dL (75-99)
[2020-12-18 08:31] LABS: African American GFR (CKD) >90 (>60 ml/min/1.73 sqM); Anion Gap 10 mmol/L; Blood Urea Nitrogen 17 mg/dL (9-20); Calcium 9.7 mg/dL (8.4-10.2); Carbon Dioxide 19 mmol/L (22-30); Chloride 105 mmol/L (98-107); Glucose 330 mg/dL (74-99); Non-African American GFR(CKD) >90 (>60 ml/min/1.73 sqM); Sodium 134 mmol/L (137-145)
[2020-12-18 08:39] LABS: Potassium 4.7 mmol/L (3.5-5.1)
[2020-12-18] MEDS ORDERED: VERAPAMIL 2.5 MG/ML 2 ML AMP ONE (08:41)
[2020-12-18] MEDS ORDERED: LIDOCAINE 1% INJ 10MG/ML (20 ML MDV) ONE (08:41)
[2020-12-18] MEDS ORDERED: MIDAZOLAM 2 MG/2 ML VIAL IV ONE ×2 (09:00→09:04)
[2020-12-18] MEDS ORDERED: LIDOCAINE 1% INJ 10MG/ML (20 ML MDV) SQ ONE ×2 (09:03→09:07)
[2020-12-18] MEDS ORDERED: VERAPAMIL SYRINGE (5 MG/10 ML) INTRAARTER ONE (09:09)
[2020-12-18] MEDS ORDERED: IOPAMIDOL-250 100ML BTL INTRAARTER ONE (09:31)
--- NOTE | 2020-12-18 09:33 | P.OP ---
Date of Procedure: 12/18/20 Description of Procedure: Preoperative diagnosis: Bilateral carotid artery stenosis with discordance, left posterior neck pain Postoperative diagnosis: Bilateral internal carotid artery stenosis approximately 40-45% Procedure: Aortic arch angiogram with bilateral carotid artery angiogram. Ultrasound-guided right radial artery access Surgeon: Alber Fall DO Anesthesia: Local with sedation x 17 mins EBL: Minimal Complications: None Condition: Stable Findings: Aortic arch is patent without any significant stenosis or calcification. Brachiocephalic takeoff is patent without stenosis. Bilateral subclavian arteries are patent without any significant calcification or stenosis. Bilateral vertebral arteries are patent without any significant stenosis with good filling of the cerebral vasculature. Common carotid, external carotid arteries bilaterally are patent without any significant stenos is. The internal carotid artery on the right measures approximately 45% stenosis and the internal carotid artery on the left measures approximately 43% stenosis at the bifurcation. Indication for procedure: 55-year-old gentleman with history of lower extremity claudication presented to the office recently with complaints of left posterior neck pain. He was sent for CT angiogram of the neck which demonstrated 85% stenosis of bilateral carotid bulbs. He underwent carotid Doppler which demonstrated less than 50% stenosis bilaterally and therefore due to discordance between the 2 studies he presents today for catheter directed angiogram. Operative narrative: After written and informed consent was obtained the patient and all risks benefits and complications were described the patient was brought to the Diffusion Operator and laid in a supine position. The area of the right wrist was prepped and draped in the usual sterile fashion. Utilizing ultrasound the right radial artery was visualized and demonstrated patency with minimal calcification. Under ultrasound guidance the right radial artery was cannulated and utilizing Seldinger technique a 5-New Zealander sheath was placed. 035 Glidewire was then placed to the aortic arch followed by pigtail catheter. Utilizing the pigtail catheter and arch angiogram was obtained. Multiple views were then obtained of the carotid arteries bilaterally. All guidewires and catheters were then removed and hemostasis was achieved with TR band. He was then sent to PACU for recovery. Plan - Discharge Summary Discharge Rx Participant: No New Discharge Prescriptions: No Action Clopidogrel [Plavix] 75 mg PO DAILY tab Aspirin 81 mg PO DAILY Pregabalin [Lyrica] 50 mg PO DAILY Repaglinide [Prandin] 2 mg PO TID Rosuvastatin [Crestor] 20 mg PO DAILY Insulin Glargine,Hum.rec.anlog [Lantus Solostar] 38 unit SQ QAM traMADol HCL [Ultram] 50 mg PO TID PRN PRN Reason: Pain Sertraline [Zoloft] 25 mg PO W/LUNCH metFORMIN HCL [Glucophage Xr] 750 mg PO BID Discharge Medication List Clopidogrel [Plavix] 75 mg PO DAILY tab 08/26/17 [Rx] Aspirin 81 mg PO DAILY 02/02/18 [History] Insulin Glargine,Hum.rec.anlog [Lantus Solostar] 38 unit SQ QAM 09/26/20 [History] Pregabalin [Lyrica] 50 mg PO DAILY 09/26/20 [History] Repaglinide [Prandin] 2 mg PO TID 09/26/20 [History] Rosuvastatin [Crestor] 20 mg PO DAILY 09/26/20 [History] Sertraline [Zoloft] 25 mg PO W/LUNCH 09/26/20 [History] metFORMIN HCL [Glucophage Xr] 750 mg PO BID 09/26/20 [History] traMADol HCL [Ultram] 50 mg PO TID PRN 09/26/20 [History] Follow up Appointment(s)/Referral(s): Alber Fall DO [STAFF PHYSICIAN] - 12/25/20 1:15 pm (Dec 25 at 1:15 PM ) Patient Instructions/Handouts: Angiogram (DC), Procedural Sedation (ED) Activity/Diet/Wound Care/Special Instructions: no driving for two days ok to shower tomorrow but no baths, pools, swimming for three days. no dressing no powders lotions on puncture site for one week. signs of infection ie: fever, rash, swelling of puncture site, drainage contact doctor. for any heaving bleeding from puncture site, hold firm pressure and go to ER. Do not drive self. Medications as directed by doctor. Discharge Disposition: HOME SELF-CARE
--- NOTE | 2020-12-18 09:46 | IR ---
EXAMINATION TYPE: IR angio aortic arch DATE OF EXAM: 12/18/2020 COMPARISON: NONE HISTORY: Fluoroscopy time. Fluoroscopy was provided to the referring clinician. 60 seconds of fluoroscopy provided
[2020-12-18 13:31] VITALS: BP 128/69; PULSE 74
== END 2020-12-18 13:22 | disposition home or self-care (01) ==
LOC: CATHCVL 07:34
PROVIDERS: ATTEND Surgery
DX: I65.23 Occlusion and stenosis of bilateral carotid arteries (principal); Z79.02 Long term (current) use of antithrombotics/antiplatelets; Z79.82 Long term (current) use of aspirin; Z79.899 Other long term (current) drug therapy
CPT/HCPCS: 36221; 80048; 85025; 87635; C1769 ×2; C1894; J2250; J2001; Q9966

== ENCOUNTER → 2023-01-09 | Outpatient (CLI) | payer BC, MEDICARE ==
[2023-01-09 11:30] LABS: African American GFR (CKD) >90 (>60 ml/min/1.73 sqM); Blood Urea Nitrogen 17 mg/dL (9-20); Non-African American GFR(CKD) >90 (>60 ml/min/1.73 sqM)
--- NOTE | 2023-01-09 15:01 | CT ---
EXAMINATION TYPE: CT abdomen pelvis w con DATE OF EXAM: 01/09/2023 COMPARISON: 07/04/2010 HISTORY: weight loss, nausea, abdominal pain CT DLP: 1132.9 mGycm Automated exposure control for dose reduction was used. TECHNIQUE: Helical acquisition of images was performed from the lung bases through the pelvis. CONTRAST: Performed with Oral Contrast and with IV Contrast, patient injected with 100 mL of Isovue 300. FINDINGS: The lung bases are clear. The gallbladder is normal without distention, wall thickening, pericholecystic fluid or gallstones. T here is no biliary ductal dilatation. There is no focal mass or organomegaly involving the liver, pancreas, spleen or adrenal glands. The s pleen is small in size and may represent a small surgical remnant. It is smaller than that seen on e prior study. There is no solid renal mass or hydronephrosis and there is homogeneous contrast enhancement of the r enal parenchyma. The caliber the abdominal aorta is normal is no retroperitoneal adenopathy or hemorr bi. The bowel loops are normal in caliber and there is no evidence of dilatation or obstruction. No infla mmatory changes are identified in the bowel wall or mesentery. There is a tiny calcification in the r egion of the appendix but no evidence of appendicitis. There is no free intraperitoneal air or fluid. No pelvic mass, free fluid, abscess or adenopathy. The osseous structures and soft tissues are intact. IMPRESSION: No significant abnormality seen. Small splenic remnant raising question of partial splenectomy.
== END | disposition home or self-care (01) ==
LOC: RADCTMAIN 10:36
PROVIDERS: ATTEND Family Medicine
DX: C92.10 Chronic myeloid leukemia, BCR/ABL-positive, not having achieved remission (principal); R10.9 Unspecified abdominal pain; R11.0 Nausea
CPT/HCPCS: 82565; 84520; 74177; 36415; Q9967

== ENCOUNTER → 2023-07-14 | Outpatient (CLI) | payer BC, MEDICARE ==
[2023-07-14 15:58] LABS: HCT 44.3 % (39.6-50.0); HGB 14.3 g/dL (13.0-17.0); MCH 28.6 pg (27.0-32.0); MCHC 32.3 g/dL (32.0-37.0); MCV 88.6 FL (80.0-97.0); Mean Platelet Volume 10.3 FL (9.5-12.2); NRBC Per 100 WBC 0 X 10*3/uL (0.00-0.01); Platelet Count 340 X 10*3/uL (140-440); RDW 17.7 % (11.5-14.5); WBC 8.53 X 10*3/uL (4.50-10.00)
[2023-07-14 22:15] LABS: NT-Pro-B-Type Natriuretic Pept 1049 pg/mL (0-125)
[2023-07-14 22:23] LABS: ALT 30 U/L (10-49); AST 25 U/L (14-35); BUN/Creat Ratio 11.89 Ratio (12.00-20.00); Blood Urea Nitrogen 10.7 mg/dL (9.0-27.0); Calcium 9.9 mg/dL (8.7-10.3); Carbon Dioxide 26.4 mmol/L (21.6-31.8); Chloride 100 mmol/L (96-109); Chol/HDL Ratio 7.03 Ratio; Glucose 175 mg/dL (70-110); LDL Cholesterol,Calculated 229.1 mg/dL (0.0-131.0); Sodium 138 mmol/L (135-145)
== END | disposition home or self-care (01) ==
LOC: LABWHC1 09:38
PROVIDERS: ATTEND Internal Medicine Cardiovascular Disease
DX: E78.2 Mixed hyperlipidemia (principal)
CPT/HCPCS: 36415; 80048; 80061; 83880; 84443; 84450; 84460; 85027

== ENCOUNTER 2023-08-11 06:25 | Day surgery (SDC) | payer BC, MEDICARE ==
[~2023-08-11 06:25] MED LIST changes: -ALPRAZolam 0.25 MG TAB PO PRN; -ASPIRIN 325 MG TAB PO PRN; +HEPARIN SODIUM,PORCINE (1 ML) 2,500 UNIT in SODIUM CHLORIDE 0.9% 250 ML IRRIGATION PRN; -HEPARIN SODIUM,PORCINE 2,500 UNIT in SODIUM CHLORIDE 0.9% 250 ML IRRIGATION PRN; +NITROGLYCERIN SL TABS 0.4 MG TAB SUBLINGUAL PRN; -SODIUM CHLORIDE 0.9% 1,000 ML in EMPTY BAG 1 BAG IV ONE; -ZOLPIDEM 5 MG TAB PO PRN
[2023-08-11] MEDS: SODIUM CHLORIDE 0.9% 1,000 ML IV ONE (06:37)
[2023-08-11 06:47] LABS: Glucose,Whole Blood 142 mg/dL (70-110)
[2023-08-11] MEDS: ALPRAZolam 0.25 MG TAB PO PRN (06:47)
[2023-08-11] MEDS ORDERED: LIDOCAINE 1% INJ 10MG/ML (20 ML MDV) ONE (07:11)
[2023-08-11] MEDS ORDERED: HEPARIN SODIUM 1,000 UN/ML (10ML VL) ONE (07:11)
[2023-08-11] MEDS ORDERED: fentaNYL (PF) 50 MCG/ML 2 ML AMP ONE (07:11)
[2023-08-11] MEDS ORDERED: VERAPAMIL 2.5 MG/ML 2 ML AMP ONE (07:11)
[2023-08-11] MEDS: fentaNYL (PF) 50 MCG/1 ML VIAL IVP ONE (07:28)
[2023-08-11] MEDS: MIDAZOLAM 2 MG/2 ML VIAL IVP ONE (07:28)
[2023-08-11] MEDS: LIDOCAINE 1% INJ 10MG/ML (20 ML MDV) SQ ONE (07:29)
[2023-08-11] MEDS: VERAPAMIL SYRINGE (5 MG/10 ML) INTRAARTER ONE (07:35)
[2023-08-11] MEDS: HEPARIN SODIUM 1,000 UN/ML (10ML VL) IV ONE (07:37)
[2023-08-11] MEDS: IOPAMIDOL-370 100ML BTL INJ ONE (08:46)
[2023-08-11] MEDS ORDERED: MORPHINE SULFATE 4 MG/ML SYRINGE ONE (09:01)
[2023-08-11] MEDS: MORPHINE SULFATE 4 MG/ML SYRINGE IVP ONE (09:02)
[2023-08-11] MEDS ORDERED: ONDANSETRON 4 MG/2 ML VIAL ONE (09:03)
[2023-08-11] MEDS: ONDANSETRON 4 MG/2 ML VIAL IVP ONE (09:04)
[2023-08-11] MEDS: PHENYLEPHRINE 10 MG/ML VIAL IV ONE (09:09)
[2023-08-11] MEDS: ATROPINE SULFATE 0.1 MG/ML 10ML SYRINGE IVP ONE (09:11)
[2023-08-11] MEDS ORDERED: CLOPIDOGREL 75 MG TAB ONE (09:23)
--- NOTE | 2023-08-11 09:25 | CC ---
CARDIAC CATHETERIZATION REPORT INDICATIONS: Cardiomyopathy with chronic systolic heart failure. PROCEDURE NOTE: After obtaining informed consent, left heart catheterization and coronary angiogram were performed via the right radial artery using standard Jayson catheters. The patient tolerated the procedure well without any obvious immediate complications. Verapamil and heparin were given per protocol. The patient received moderate conscious sedation. Total sedation time was 20 minutes. Right radial artery access was obtained using Seldinger technique, 6-Khmer sheath was placed. Catheters and wires were floated into the ascending aorta under fluoroscopic guidance. FINDINGS: 1. Hemodynamics: Left ventricular end-diastolic pressure is 10 mm. There is no significant gradient across the aortic valve. 2. Left Ventriculogram: Left ventriculogram is not performed. 3. Angiographic Data: a.Right Coronary Artery: Right coronary artery is a large dominant vessel that shows 80% focal stenosis involving the ostium of the right coronary artery in the very proximal RCA. Left main coronary artery appears calcified but is free of significant stenosis, divides into left anterior descending coronary artery and circumflex coronary artery. Circumflex coronary artery and its branches are free of significant stenosis. LAD shows focal 70% stenosis just past the diagonal branch. CONCLUSION: Two-vessel coronary artery disease as described above. PLAN: I am going to have Dr. Hess, the on-call tower attendant to review the angiographic data and advise on the angioplasty of both the LAD and the right coronary artery. MMODL / IJN: [id number] /
[2023-08-11] MEDS ORDERED: MAG HYDROX/AL HYDROX/SIMETH 30 ML CUP PO PRN (09:26)
[2023-08-11] MEDS ORDERED: ZOLPIDEM 5 MG TAB PO PRN (09:26)
[2023-08-11] MEDS ORDERED: NITROGLYCERIN SL TABS 0.4 MG TAB SUBLINGUAL PRN (09:26)
[2023-08-11] MEDS ORDERED: RX INFO: IV CONTRAST WAS GIVEN 1 EACH MISC MISCELLANE PRN (09:26)
[2023-08-11] MEDS ORDERED: ATROPINE SULFATE 0.1 MG/ML 10ML SYRINGE IV PRN (09:26)
[2023-08-11] MEDS: CLOPIDOGREL 75 MG TAB PO ONE (09:27)
[2023-08-11] MEDS ORDERED: CYCLOBENZAPRINE 5 MG TAB PO PRN (09:28)
[2023-08-11] MEDS ORDERED: REPATHA SQ SCH (09:30)
--- NOTE | 2023-08-11 09:33 | P.PCN ---
Date of Procedure: 08/11/23 Operative Findings: PERCUTANEOUS CORONARY INTERVENTION Performing physician Demetri Hess M.D. Procedure Performed: 1. Successful stenting of the RCA using 4.0 x 48 mm Xience drug-eluting stent with an excellent angiographic results. 2. Adjunctive use of intravascular ultrasound Indication: Please refer to diagnostic heart catheterization was performed by Dr. Chambers earlier today. The patient was diagnosed recently with cardiomyopathy. He underwent a heart catheterization with Dr. Del Valle and that revealed critical disease involving the RCA and severe disease involving the mid LAD Approach: Right radial artery Complications: None Level of Sedation: Moderate with a sedation length of 42 minutes Procedure Discussion: After obtaining informed consent the patient was brought to the cardiac Kelp Gatherer. The diagnostic heart catheterization was performed by Dr. Chambers. Subsequently we decided to intervene on the RCA. Anticoagulation was initiated using heparin with continuous ACT monitoring. Subsequently the RCA was engaged using JR 3.5 with sideholes. Subsequently I did wired the RCA using a run- through wire. Intravascular ultrasound was performed and showed a diameter around 4 mm. Predilatation was performed using 3 mm noncompliant balloon and subsequently 3 mm the both balloons were 3 mm in diameter. Subsequently I deployed 4.0 x 48 mm Xience stent where the stent was positioned under fluoroscopy guidance and deployed under fluoroscopy guidance. Postdilatation was performed initially using 4 mm noncompliant balloon and subsequently 4.5 mm noncompliant balloon after intravascular ultrasound was performed with flaring of the ostium as well. Final angiogram showed good angiographic results with TYRONE-3 flow and we lost the acute marginal branch and with that the patient was having some chest discomfort and EKG changes with ST elevation and only V1. The pain was getting better throughout the procedure. Postprocedure Management: 1. Dual antiplatelet therapy using aspirin and Plavix for at least 6-month 2. PCI of the LAD 3. Aggressive risk factors modification
--- NOTE | 2023-08-11 09:45 | LTR ---
Dear Tony, A detailed catheterization note is enclosed with your records. In brief, cardiac catheterization revealed significant obstructive disease involving the proximal right coronary artery and mid LAD. We will consider revascularization of both the vessels either once or in a staged fashion. Thank you for giving us the privilege to participate in the care of this pleasant gentleman. Sincerely, KIRAN / SANDI: [id number] /
[2023-08-11] MEDS: ACETAMINOPHEN TAB 500 MG TAB PO STA (12:30)
[2023-08-11] MEDS: SODIUM CHLORIDE 0.9% 1,000 ML in EMPTY BAG 1 BAG IV SCH ×2 (13:46→13:47)
[2023-08-11] MEDS: ASPIRIN 325 MG TAB PO STA (16:25)
[2023-08-11] MEDS: SERTRALINE 25 MG TAB PO SCH (17:44)
[2023-08-11] MEDS: ATORVASTATIN 80 MG TAB PO SCH (21:59)
[2023-08-11] MEDS: traMADol 50 MG TAB PO PRN (22:15)
[2023-08-12 08:03] VITALS: BP 134/66; PULSE 72; RESP 16; TEMP 97.6
[2023-08-12] MEDS: POTASSIUM CHLORIDE ER 20 MEQ TAB.ER PO SCH (08:51)
[2023-08-12] MEDS: ASPIRIN 81 MG PO SCH (08:51)
[2023-08-12] MEDS: CLOPIDOGREL 75 MG TAB PO SCH (08:51)
[2023-08-12] MEDS: ESCITALOPRAM 10 MG TAB PO SCH (08:51)
[2023-08-12] MEDS: FUROSEMIDE 40 MG TAB PO SCH (08:52)
[2023-08-12] MEDS: lisinopriL 10 MG TAB PO SCH (08:52)
[2023-08-12] MEDS ORDERED: ATORVASTATIN 40 MG TAB PO SCH (09:00)
[2023-08-12] MEDS: INSULIN DETEMIR (LEVEMIR) 100 UNIT/ML SYR SQ SCH (09:00)
[2023-08-12] MEDS ORDERED: cilostazoL 100 MG TAB PO SCH (09:00)
--- NOTE | 2023-08-12 09:33 | P.DS ---
Providers Expected date of discharge: 08/12/23 Attending physician: Chet Kumar Consults: 08/11/23 09:27 Consult Physician Routine Consulting Provider: [facility] Consult Reason/Comments: Post Interventional patient Do you want consulting provider notified?: Already Contacted Primary care physician: Марина [facility] Course: History of present illness: This is a 57-year-old male patient of Dr. Licha Kumar with past medical history of cardiomyopathy. He was brought in the hospital to undergo cardiac catheterization which was performed by Dr. Licha Kumar revealed critical disease involving the RCA and severe disease involving the mid LAD. Patient was subsequently seen by Dr. Hess and he performed stenting of the RCA with BIJU and plan is for addressing the LAD next week. Patient states he did have some chest pain more that he was a little uncomfortable last evening while at rest. He states he has walked in his room to the bathroom and he has not experienced the chest pain with activity. He also complains of neck discomfort which has been chronic. He denies shortness of breath. Physical examination: Gen: This is a 57-year-old male in no acute distress VS: reviewed for HEENT: Head is atraumatic, normocephalic. Pupils equal, round. Sclerae is anicteric. NECK: Supple. No JVD. LUNGS: Clear to auscultation. No wheezes or rhonchi. No intercostal retractions. HEART: Regular rate and rhythm. No murmur. ABDOMEN: Soft No tenderness. EXTREMITIES: No pedal edema. No calf tenderness. NEUROLOGICAL: Patient is awake, alert and oriented x3. Assessment: CAD Cardiomyopathy Plan: Patient is cleared for discharge home. He will be rescheduled for PCI of the LAD next week. Nurse practitioner note has been reviewed, I agree with documented findings and plan of care. Patient was seen and examined. Plan - Discharge Summary Discharge Rx Participant: No New Discharge Prescriptions: New Nitroglycerin Sl Tabs [Nitrostat] 0.4 mg SUBLINGUAL Q5M PRN #25 tab PRN Reason: Chest Pain Atorvastatin [Lipitor] 80 mg PO HS #90 tab Continue Clopidogrel [Plavix] 75 mg PO DAILY tab Aspirin 81 mg PO DAILY Unk Repatha 1 injection SQ Q14D Semaglutide [Ozempic] 1 mg SQ MO Cyclobenzaprine [Flexeril] 5 mg PO BID PRN PRN Reason: Muscle Spasm traMADol HCL [Ultram] 50 mg PO TID PRN PRN Reason: Pain Sertraline [Zoloft] 25 mg PO W/LUNCH metFORMIN HCL [Glucophage Xr] 750 mg PO BID Potassium Chloride [K-Tab ER] 20 meq PO DAILY Insulin Glargine,Hum.rec.anlog [Basaglar Tempo Pen U-100] 30 units SQ DAILY Furosemide [Lasix] 40 mg PO DAILY Escitalopram [Lexapro] 10 mg PO DAILY lisinopriL [Zestril] 10 mg PO DAILY Discontinued Rosuvastatin [Crestor] 20 mg PO DAILY cilostazoL [Pletal] 100 mg PO DAILY Discharge Medication List Clopidogrel [Plavix] 75 mg PO DAILY tab 08/26/17 [Rx] Aspirin 81 mg PO DAILY 02/02/18 [History] Sertraline [Zoloft] 25 mg PO W/LUNCH 09/26/20 [History] metFORMIN HCL [Glucophage Xr] 750 mg PO BID 09/26/20 [History] traMADol HCL [Ultram] 50 mg PO TID PRN 09/26/20 [History] Furosemide [Lasix] 40 mg PO DAILY 08/10/23 [History] Insulin Glargine,Hum.rec.anlog [Basaglar Tempo Pen U-100] 30 units SQ DAILY 08/10/23 [History] Potassium Chloride [K-Tab ER] 20 meq PO DAILY 08/10/23 [History] Semaglutide [Ozempic] 1 mg SQ MO 08/10/23 [History] Unk Repatha 1 injection SQ Q14D 08/10/23 [History] Cyclobenzaprine [Flexeril] 5 mg PO BID PRN 08/11/23 [History] Escitalopram [Lexapro] 10 mg PO DAILY 08/11/23 [History] lisinopriL [Zestril] 10 mg PO DAILY 08/11/23 [History] Atorvastatin [Lipitor] 80 mg PO HS #90 tab 08/12/23 [Rx] Nitroglycerin Sl Tabs [Nitrostat] 0.4 mg SUBLINGUAL Q5M PRN #25 tab 08/12/23 [Rx] Follow up Appointment(s)/Referral(s): Chet Kumar MD [STAFF PHYSICIAN] - 1 Week Patient Instructions/Handouts: Moderate Sedation (DC), After Radial Heart Catheterization (GEN) Activity/Diet/Wound Care/Special Instructions: NO METFORMIN FOR 48 HOURS. NO LIFTING, PUSHING, OR PULLING ANYTHING OVER 5 POUNDS FOR 5 DAYS *NO DRIVING FOR 3 DAYS *YOU CAN REMOVE YOUR DRESSING TOMORROW BUT DO NOT SUBMERSE YOUR PUNCTURE SITE IN WATER FOR A FEW DAYS TO PREVENT INFECTION - SO NO TUB BATHS, POOLS, HOT TUBS, DISHES....ETC *ANY SIGNS OF BLEEDING (HARDNESS, SWELLING, OR EXCESSIVE BRUISING) HOLD PRESSURE ON YOUR PUNCTURES SITE AND COME TO THE NEAREST EMERGENCY ROOM TO GET YOUR P UNCTURE SITE LOOKED AT - DO NOT DRIVE YOURSELF! EITHER CALL EMS OR HAVE SOMEONE DRIVE YOU! FALL PRECAUTIONS TODAY. MEDICATIONS DIRECTED BY DR KUMAR.
[2023-08-12 12:38] LABS: African American GFR (CKD) >90 (>60 ml/min/1.73 sqM); Anion Gap 5 mmol/L; Blood Urea Nitrogen 14 mg/dL (9-20); Calcium 9.1 mg/dL (8.4-10.2); Carbon Dioxide 29 mmol/L (22-30); Chloride 102 mmol/L (98-107); Glucose 196 mg/dL (74-99); Non-African American GFR(CKD) >90 (>60 ml/min/1.73 sqM); Potassium 4.3 mmol/L (3.5-5.1); Sodium 136 mmol/L (137-145)
[2023-08-12 12:42] LABS: Anisocytosis Slight; HCT 41.6 % (39.0-53.0); HGB 13.2 gm/dL (13.0-17.5); MCH 28.4 pg (25.0-35.0); MCHC 31.9 g/dL (31.0-37.0); Mean Platelet Volume 7.9; Platelet Count 250 k/uL (150-450); RBC 4.67 m/uL (4.30-5.90); RDW 16.2 % (11.5-15.5); WBC 9.2 k/uL (3.8-10.6)
[2023-08-12 12:45] VITALS: BMI 29.2
[2023-08-17] MEDS ORDERED: NON FORMULARY DRUG (Semaglutide [Ozempic] 1 MG/0.75 ML Each) SQ SCH (09:28)
== END 2023-08-12 13:55 | disposition home or self-care (01) ==
LOC: CATHCVL 06:25 → 6NMEDSUR 09:22 → CATHCVL 08-12 13:55
PROVIDERS: ATTEND Internal Medicine Cardiovascular Disease
DX: I25.5 Ischemic cardiomyopathy (principal); I25.10 Atherosclerotic heart disease of native coronary artery without angina pectoris; I50.22 Chronic systolic (congestive) heart failure; E11.9 Type 2 diabetes mellitus without complications; Z79.02 Long term (current) use of antithrombotics/antiplatelets; Z79.82 Long term (current) use of aspirin; Z79.84 Long term (current) use of oral hypoglycemic drugs; Z79.899 Other long term (current) drug therapy
CPT/HCPCS: 92978; 93458; 80048; 85027; C9600; C1769 ×2; C1894; C1887; C1753; C1725 ×4; C1874; J2250; J2270; J2405; J2001; J0461; J1644; Q9967; J3010; J2371

== ENCOUNTER → 2024-03-07 | Outpatient (CLI) | payer BC, MEDICARE ==
[2024-03-07 14:50] LABS: HCT 34.1 % (39.6-50.0); HGB 10.9 g/dL (13.0-17.0); MCH 29.3 pg (27.0-32.0); MCV 91.7 FL (80.0-97.0); Mean Platelet Volume 9.6 FL (9.5-12.2); NRBC Per 100 WBC 0 X 10*3/uL (0.00-0.01); Platelet Count 317 X 10*3/uL (140-440); RBC 3.72 X 10*6/uL (4.40-5.60); RDW 15.5 % (11.5-14.5); WBC 10.62 X 10*3/uL (4.50-10.00)
[2024-03-07 15:07] LABS: ALT 37 U/L (10-49); AST 29 U/L (14-35); Albumin 4.1 g/dL (3.8-4.9); Albumin/Globulin Ratio 1.95 Ratio (1.60-3.17); Alkaline Phosphatase 93 U/L (41-126); BUN/Creat Ratio 13.22 Ratio (12.00-20.00); Blood Urea Nitrogen 11.9 mg/dL (9.0-27.0); Calcium 9.8 mg/dL (8.7-10.3); Carbon Dioxide 25.3 mmol/L (21.6-31.8); Chloride 106 mmol/L (96-109); Globulin 2.1 g/dL (1.6-3.3); Glucose 108 mg/dL (70-110); Potassium 4.5 mmol/L (3.5-5.5); Sodium 140 mmol/L (135-145); Total Bilirubin 0.2 mg/dL (0.3-1.2); Total Protein 6.2 g/dL (6.2-8.2)
[2024-03-07 15:21] LABS: Prealbumin 21.7 mg/dL (18.0-42.0)
[2024-03-07 16:49] LABS: Basophils # (M) 0.11 X 10*3/uL (0.00-0.10); Eosinophils # (M) 0.32 X 10*3/uL (0.04-0.35); Monocytes # (M) 0.64 X 10*3/uL (0.20-1.00); Neutrophils # (M) 2.66 X 10*3/uL (1.80-7.70); Neutrophils % (M) 25 %
== END | disposition home or self-care (01) ==
LOC: LABWHC1 08:51
PROVIDERS: ATTEND Podiatrist
DX: L97.519 Non-pressure chronic ulcer of other part of right foot with unspecified severity (principal)
CPT/HCPCS: 36415; 80053; 83036; 84134; 85025

== ENCOUNTER 2024-06-09 09:15 | Inpatient (IN) | payer BC, MEDICARE ==
[2024-06-09] MEDS ORDERED: VANCOMYCIN IV PER PHARMACY 1 EACH MISC MISCELLANE PRN (09:38)
[2024-06-09 10:14] LABS: Basophils # (A) 0.1 k/uL (0-0.2); Basophils % (A) 1 %; Eosinophils # (A) 0.2 k/uL (0-0.7); Eosinophils % (A) 2 %; HCT 38.8 % (39.0-53.0); HGB 12.2 gm/dL (13.0-17.5); Lymphocytes # (A) 4.2 k/uL (1.0-4.8); Lymphocytes % (A) 37 %; MCH 28.2 pg (25.0-35.0); MCHC 31.6 g/dL (31.0-37.0); MCV 89.5 fL (80.0-100.0); Mean Platelet Volume 7.1; Monocytes # (A) 0.9 k/uL (0-1.0); Monocytes % (A) 8 %; Neutrophils # (A) 5.8 k/uL (1.3-7.7); Neutrophils % (A) 51 %; Platelet Count 379 k/uL (150-450); RBC 4.33 m/uL (4.30-5.90); RDW 15.2 % (11.5-15.5); WBC 11.4 k/uL (3.8-10.6)
[2024-06-09 10:26] LABS: ALT 37 U/L (4-49); AST 47 U/L (17-59); African American GFR (CKD) >90 (>60 ml/min/1.73 sqM); Albumin 4.2 g/dL (3.5-5.0); Alkaline Phosphatase 117 U/L (38-126); Anion Gap 8 mmol/L; Blood Urea Nitrogen 16 mg/dL (9-20); Calcium 9.7 mg/dL (8.4-10.2); Carbon Dioxide 31 mmol/L (22-30); Chloride 99 mmol/L (98-107); Glucose 155 mg/dL (74-99); Non-African American GFR(CKD) 88 (>60 ml/min/1.73 sqM); Sodium 138 mmol/L (137-145); Total Bilirubin 0.5 mg/dL (0.2-1.3); Total Protein 7.2 g/dL (6.3-8.2)
--- NOTE | 2024-06-09 10:40 | XR ---
EXAMINATION TYPE: XR foot complete RT DATE OF EXAM: 06/09/2024 10:12 AM COMPARISON: Nonee CLINICAL INDICATION: Male, 58 years old with history of infection; , pain TECHNIQUE: XR foot complete RT examined in the AP, oblique, and lateral projections. FINDINGS: There is loss of cortex involving the fifth digit distal and proximal phalanx absent phalanges and pr esent. There is soft tissue edema around the fifth digit. Incidental note is made of symphalangism of the fifth distal interphalangeal joint. Multifocal degeneration changes throughout the joints of the foot with osteophyte formation and joint space narrowing. No evidence of any acute osseous pathology . IMPRESSION: 1. Osteomyelitis of the fifth digit proximal and distal phalanx no soft tissue edema. 2. No evidence of acute fracture. 3. Multifocal degeneration changes throughout the joints of the foot. [facility], , 06/09/2024 10:38 AM
[2024-06-09] MEDS: CEFEPIME 2 GM in SODIUM CHLORIDE 0.9% 100 ML IVPB STA (10:49)
[2024-06-09] MEDS ORDERED: NALOXONE 0.4 MG/ML 1 ML VIAL IV PRN (10:59)
--- NOTE | 2024-06-09 11:09 | ED ---
Skin/Abscess/FB HPI - General Chief complaint: Skin/Abscess/Foreign Body Stated complaint: right foot problem Time Seen by Provider: 06/09/24 09:17 Source: patient, RN notes reviewed Mode of arrival: ambulatory Limitations: no limitations - History of Present Illness Initial comments: 58-year-old male presents emergency department with chief complaint of right foot infection. He states has been having ongoing wound in which he sees Dr. Higuera but this is worsening worsening redness and some discharge. Patient has known diabetic has had a vascular stent sees Dr. Fall - Related Data Home Medications Medication Instructions Recorded Confirmed Aspirin 81 mg PO DAILY 02/02/18 05/13/24 metFORMIN HCL [Glucophage Xr] 750 mg PO BID 09/26/20 05/13/24 Furosemide [Lasix] 40 mg PO DAILY 08/10/23 05/13/24 Potassium Chloride [K-Tab ER] 20 meq PO HS 08/10/23 05/13/24 Semaglutide [Ozempic] 1 mg SQ WE 08/10/23 05/13/24 Cyclobenzaprine [Flexeril] 5 mg PO BID PRN 08/11/23 05/13/24 Escitalopram [Lexapro] 10 mg PO HS 08/11/23 05/13/24 lisinopriL [Zestril] 10 mg PO DAILY 08/11/23 05/13/24 Evolocumab [Repatha Sureclick] 140 mg SQ Q14D 08/18/23 05/11/24 Spironolactone 25 mg PO DAILY 05/11/24 05/13/24 Previous Rx's Medication Instructions Recorded Atorvastatin [Lipitor] 80 mg PO HS #90 tab 08/12/23 Nitroglycerin Sl Tabs [Nitrostat] 0.4 mg SUBLINGUAL Q5M PRN #25 tab 08/12/23 Prasugrel [Effient] 10 mg PO DAILY #90 tab 08/21/23 Allergies Allergy/AdvReac Type Severity Reaction Status Date / Time Penicillins Allergy Unknown Verified 06/09/24 09:19 Childhood Review of Systems ROS Statement: Those systems with pertinent positive or pertinent negative responses have been documented in the HPI. ROS Other: All systems not noted in ROS Statement are negative. 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 mild Edema rt lower leg, abdominal hernia, no cpap used since wt loss, sleeps elevated, sepsis after dog bite to hand 2019. seasonal allergies, , recent SOB. [place] seen on stress test per pt. ( 2 weeks ago), c/o left sided neck pain, "it's the vein in that side of my neck", has had some N/V this week, will get nauseated occasionally anyway but seems more frequent this week, recent adm. [facility] for coronary stent, tired, SOB w/exertion History of Any Multi-Drug Resistant Organisms: None Reported Past Surgical History: Heart Catheterization With Stent, Joint Replacement Additional Past Surgical History / Comment(s): BONE MARROW TRANSPLANT 2006, Lt KNEE arthroscopy, left knee REPLACEMENT, SEPTAL SURG, BMTs bilateral ears, hemorrhoidectomy, colonoscopy, vasectomy, aortogram, atherectomy with balloon angioplasty 08/25/17. stent in legs 2020, recent card. cath Past Anesthesia/Blood Transfusion Reactions: No Reported Reaction Additional Past Anesthesia/Blood Transfusion Reaction / Comment(s): Pt has received blood without reaction. Mom had problems with dyes. Date of Last Stent Placement:: 08/11/23 Past Psychological History: Anxiety Smoking Status: Former smoker Past Alcohol Use History: None Reported Past Drug Use History: Marijuana - Past Family History Father Family Medical History: Coronary Artery Disease (CAD), Pulmonary Embolus Additional Family Medical History / Comment(s): cabg Mother Family Medical History: Dementia Additional Family Medical History / Comment(s): Mother at age 72yrs. Daughter(s) Family Medical History: Blood Disorder Additional Family Medical History / Comment(s): "they just keep bleeding' both daughters General Exam Limitations: no limitations General appearance: alert, in no apparent distress Head exam: Present: atraumatic, normocephalic, normal inspection Eye exam: Present: normal appearance, PERRL, EOMI. Absent: scleral icterus, conjunctival injection, periorbital swelling ENT exam: Present: normal exam, normal oropharynx, mucous membranes moist Neck exam: Present: normal inspection, full ROM. Absent: tenderness, meningismus, lymphadenopathy Respiratory exam: Present: normal lung sounds bilaterally. Absent: respiratory distress, wheezes, rales, rhonchi, stridor Cardiovascular Exam: Present: regular rate, normal rhythm, normal heart sounds. Absent: systolic murmur, diastolic murmur, rubs, gallop, clicks GI/Abdominal exam: Present: soft, normal bowel sounds. Absent: distended, tenderness, guarding, rebound, rigid Extremities exam: Present: other (Right foot fifth digit gangrene no cellulitic changes there is pulses and warm leg noted) Course Vital Signs 06/09/24 09:16 Temperature 97.6 F Pulse Rate 77 Respiratory 18 Rate Blood Pressure 159/83 O2 Sat by Pulse 100 Oximetry Medical Decision Making - Medical Decision Making Was pt. sent in by a medical professional or institution (, PA, CELL BUILDER, urgent care, hospital, or jail...) When possible be specific @ -No Did you speak to anyone other than the patient for history (EMS, parent, family, police, friend...)? What history was obtained from this source @ -No Did you review nursing and triage notes (agree or disagree)? Why? @ -I reviewed and agree with nursing and triage notes Were old charts reviewed (outside hosp., previous admission, EMS record, old EKG, old radiological studies, urgent care reports/EKG's, jail records)? Report findings @ -No old charts were reviewed Differential Diagnosis (chest pain, altered mental status, abdominal pain women, abdominal pain men, vaginal bleeding, weakness, fever, dyspnea, syncope, headache, dizziness, GI bleed, back pain, seizure, CVA, palpatations, mental health, musculoskeletal)? @ -Diabetic foot infection, cellulitis, osteomyelitis, gangrene EKG interpreted by me (3pts min.). @ -None X-rays interpreted by me (1pt min.). @ -X-ray right foot showing evidence of osteomyelitis CT interpreted by me (1pt min.). @ -None done U/S interpreted by me (1pt. min.). @ -None done What testing was considered but not performed or refused? (CT, X-rays, U/S, labs)? Why? @ -None What meds were considered but not given or refused? Why? @ -None Did you discuss the management of the patient with other professionals (professionals i.e. DrMirta, PA, CELL BUILDER, lab, RT, psych nurse, social insurance adviser, utilities estimator and drafter, teacher, fiscal officer, caser)? Give summary @ -Dr. Gume INGRAM for admission Was smoking cessation discussed for >3mins.? @ -No Was critical care preformed (if so, how long)? @ -No Were there social determinants of health that impacted care today? How? (Home lessness, low income, unemployed, alcoholism, drug addiction, transportation, low edu. Level, literacy, decrease access to med. care, [place] [facility], rehab)? @ -No Was there de-escalation of care discussed even if they declined (Discuss DNR or withdrawal of care, Hospice)? DNR status @ -No What co-morbidities impacted this encounter? (DM, HTN, Smoking, COPD, CAD, Cancer, CVA, ARF, Chemo, Hep., AIDS, mental health diagnosis, sleep apnea, morbid obesity)? @\\Diabetes, vascular disease Was patient admitted / discharged? Hospital course, mention meds given and route, prescriptions, significant lab abnormalities, going to OR and other pertinent info. @ -Admitted patient found to have osteomyelitis, cellulitis diabetic foot infection with gangrene. Patient started on cefepime, vancomycin patient was admitted with vascular and ID consults. Undiagnosed new problem with uncertain prognosis? @ -No Drug Therapy requiring intensive monitoring for toxicity (Heparin, Nitro, Insulin, Cardizem)? @ -No Were any procedures done? @ -No Diagnosis/symptom? @ -Osteomyelitis gangrene cellulitis Acute, or Chronic, or Acute on Chronic? @ -Acute Uncomplicated (without systemic symptoms) or Complicated (systemic symptoms)? @ -Complicated Side effects of treatment? @ -No Exacerbation, Progression, or Severe Exacerbation? @ -No Poses a threat to life or bodily function? How? (Chest pain, [place], [place], pneumonia, PE, COPD, DKA, ARF, appy, cholecystitis, CVA, Diverticulitis, Homicidal, Suicidal, threat to staff... and all critical care pts) @ -[Yes could lead to sepsis endorgan failure - Lab Data Result diagrams: 06/09/24 09:52 06/09/24 09:52 Lab Results 06/09/24 06/09/24 06/09/24 Range/Units 09:52 09:52 09:52 WBC 11.4 H (3.8-10.6) k/uL RBC 4.33 (4.30-5.90) m/uL Hgb 12.2 L (13.0-17.5) gm/dL Hct 38.8 L (39.0-53.0) % MCV 89.5 (80.0-100.0) fL MCH 28.2 (25.0-35.0) pg MCHC 31.6 (31.0-37.0) g/dL RDW 15.2 (11.5-15.5) % Plt Count 379 (150-450) k/uL MPV 7.1 Neutrophils % 51 % Lymphocytes % 37 % Monocytes % 8 % Eosinophils % 2 % Basophils % 1 % Neutrophils # 5.8 (1.3-7.7) k/uL Lymphocytes # 4.2 (1.0-4.8) k/uL Monocytes # 0.9 (0-1.0) k/uL Eosinophils # 0.2 (0-0.7) k/uL Basophils # 0.1 (0-0.2) k/uL Sodium 138 (137-145) mmol/L Potassium 5.0 (3.5-5.1) mmol/L Chloride 99 (98-107) mmol/L Carbon Dioxide 31 H (22-30) mmol/L Anion Gap 8 mmol/L BUN 16 (9-20) mg/dL Creatinine 0.95 (0.66-1.25) mg/dL Est GFR (CKD-EPI)AfAm >90 (>60 ml/min/1.73 sqM) Est GFR (CKD-EPI)NonAf 88 (>60 ml/min/1.73 sqM) Glucose 155 H (74-99) mg/dL Plasma Lactic Acid Alexei 1.7 (0.7-2.0) mmol/L Calcium 9.7 (8.4-10.2) mg/dL Total Bilirubin 0.5 (0.2-1.3) mg/dL AST 47 (17-59) U/L ALT 37 (4-49) U/L Alkaline Phosphatase 117 (38-126) U/L Total Protein 7.2 (6.3-8.2) g/dL Albumin 4.2 (3.5-5.0) g/dL Disposition Clinical Impression: Osteomyelitis, Gangrene, Cellulitis Disposition: ADMITTED IP TO THIS HOSP Condition: Fair Referrals: Марина Sweeney DO [Primary Care Provider] - 1-2 days Time of Disposition: 11:09
[2024-06-09 11:31] LABS: C Reactive Protein 2.4 mg/dL (<1.0)
[2024-06-09] MEDS: VANCOMYCIN 1,500 MG in SODIUM CHLORIDE 0.9% 500 ML 500 ML IVPB ONE (11:34)
[2024-06-09] MEDS: HYDROmorphone 0.5 MG/0.5 ML SYRINGE IVP STA (11:43)
--- NOTE | 2024-06-09 12:30 | P.GSCN ---
History of Present Illness Consult date: 06/09/24 Reason for Consult: Osteomyelitis, and green, prior stent Requesting physician: Dylan Rascon History of present illness: This a pleasant 58-year-old male with a history of diabetes mellitus, coronary artery disease with stenting, bilateral lower extremity peripheral arterial disease with prior revascularization who was sent in by Dr. Higuera for concerns for infected wound. Patient has a wound to his right fifth toe since December, he went into wound care today and there is increasing redness up his foot and leg. He was sent over to the emergency department for further evaluation. He had an x-ray of the right foot reporting osteomyelitis of the fifth digit proximal and distal phalanx patient was admitted for. IV antibiotics with consult to infectious disease and vascular surgery. Patient follows with Dr. Fall for peripheral arterial disease with bilateral lower extremity revascularization. Patient most recently underwent angiogram 05/13/2024 with percutaneous atherectomy of the right SFA, angioplasty of the right tibioperoneal trunk and with drug-eluting balloon. Patient states he is post to have appointment with cardiology tomorrow sounds like clearance for possible HBO therapy at the wound clinic. He also states he he has an appointment tomorrow for arterial ultrasound at the vascular surgery office. He denies any fevers or chills. He does state that he started seeing redness along the foot and going up his leg over the past day or 2. States it is tender along the lateral aspect of his right foot. He denies any shortness of breath, chest pain, abdominal pain, nausea or vomiting. States he is concern for worsening osteomyelitis and infection and would like to proceed with fifth toe amputation. Review of Systems A 14 point review systems was completed all pertinent positives and negatives as stated in the HPI. Past Medical History Past Medical History: Asthma, Coronary Artery Disease (CAD), Cancer, Chest Pain / Angina, Diabetes Mellitus, Hyperlipidemia, Hypertension, Osteoarthritis (OA), Pneumonia, Sleep Apnea/CPAP/BIPAP, Thyroid Disorder, Vascular Disorder Additional Past Medical History / Comment(s): CML- immmunosuppressed, carpal tunnel bilaterally, chronic dry mucosa from the wvdiq-[id number]-jwvh disease (especially of the eyes and oral cavity). mild Edema rt lower leg, abdominal hernia, no cpap used since wt loss, sleeps elevated, sepsis after dog bite to hand 2019. seasonal allergies, , recent SOB. [place] seen on stress test per pt. ( 2 weeks ago), c/o left sided neck pain, "it's the vein in that side of my neck", has had some N/V this week, will get nauseated occasionally anyway but seems more frequent this week, recent adm. [facility] for coronary stent, tired, SOB w/exertion History of Any Multi-Drug Resistant Organisms: None Reported Past Surgical History: Heart Catheterization With Stent, Joint Replacement Additional Past Surgical History / Comment(s): BONE MARROW TRANSPLANT 2006, Lt KNEE arthroscopy, left knee REPLACEMENT, SEPTAL SURG, BMTs bilateral ears, hemorrhoidectomy, colonoscopy, vasectomy, aortogram, atherectomy with balloon angioplasty 08/25/17. stent in legs 2020, recent card. cath Past Anesthesia/Blood Transfusion Reactions: No Reported Reaction Additional Past Anesthesia/Blood Transfusion Reaction / Comm: Pt has received blood without reaction. Mom had problems with dyes. Date of Last Stent Placement:: 08/11/23 Past Psychological History: Anxiety Smoking Status: Former smoker Past Alcohol Use History: None Reported Past Drug Use History: Marijuana - Past Family History Father Family Medical History: Coronary Artery Disease (CAD), Pulmonary Embolus Additional Family Medical History / Comment(s): cabg Mother Family Medical History: Dementia Additional Family Medical History / Comment(s): Mother at age 72yrs. Daughter(s) Family Medical History: Blood Disorder Additional Family Medical History / Comment(s): "they just keep bleeding' both daughters Medications and Allergies Home Medications Medication Instructions Recorded Confirmed Type Aspirin 81 mg PO DAILY 02/02/18 05/13/24 History metFORMIN HCL [Glucophage Xr] 750 mg PO BID 09/26/20 05/13/24 History Furosemide [Lasix] 40 mg PO DAILY 08/10/23 05/13/24 History Potassium Chloride [K-Tab ER] 20 meq PO HS 08/10/23 05/13/24 History Semaglutide [Ozempic] 1 mg SQ WE 08/10/23 05/13/24 History Cyclobenzaprine [Flexeril] 5 mg PO BID PRN 08/11/23 05/13/24 History Escitalopram [Lexapro] 10 mg PO HS 08/11/23 05/13/24 History lisinopriL [Zestril] 10 mg PO DAILY 08/11/23 05/13/24 History Atorvastatin [Lipitor] 80 mg PO HS #90 tab 08/12/23 05/13/24 Rx Nitroglycerin Sl Tabs [Nitrostat] 0.4 mg SUBLINGUAL Q5M PRN #25 tab 08/12/23 05/11/24 Rx Evolocumab [Repatha Sureclick] 140 mg SQ Q14D 08/18/23 05/11/24 History Prasugrel [Effient] 10 mg PO DAILY #90 tab 08/21/23 05/13/24 Rx Spironolactone 25 mg PO DAILY 05/11/24 05/13/24 History Allergies Allergy/AdvReac Type Severity Reaction Status Date / Time Penicillins Allergy Unknown Verified 06/09/24 09:19 Childhood Surgical - Exam Vital Signs Temp Pulse Resp BP Pulse Ox 97.6 F 77 18 159/83 100 06/09/24 09:16 06/09/24 09:16 06/09/24 09:16 06/09/24 09:16 06/09/24 09:16 General appearance: The patient is alert, oriented, appears in no acute distress. HET: Head is normocephalic and atraumatic. Pupils are equal and reactive. Neck: Supple. Heart: Regular. Lungs: Equal expansion, normal respiratory effort. Abdomen: Soft, nontender, nondistended. Extremities: Right lower extremity swelling, lateral side of dorsal aspect of foot surrounding fifth toe and along lower oh with erythema. Fifth toe gangrenous wound. Foot warm to the touch with good capillary refill, sensorimotor intact. Faint palpable DP pulse. Positive PT and DP Doppler signal. Neurological: No focal deficits. Strength and sensation are grossly intact. Results - Labs 06/09/24 09:52 06/09/24 09:52 Abnormal Lab Results - Last 24 Hours (Table) 06/09/24 06/09/24 Range/Units 09:52 09:52 WBC 11.4 H (3.8-10.6) k/uL Hgb 12.2 L (13.0-17.5) gm/dL Hct 38.8 L (39.0-53.0) % Carbon Dioxide 31 H (22-30) mmol/L Glucose 155 H (74-99) mg/dL C-Reactive Protein 2.4 H (<1.0) mg/dL Diabetes panel 06/09/24 Range/Units 09:52 Sodium 138 (137-145) mmol/L Potassium 5.0 (3.5-5.1) mmol/L Chloride 99 (98-107) mmol/L Carbon Dioxide 31 H (22-30) mmol/L BUN 16 (9-20) mg/dL Creatinine 0.95 (0.66-1.25) mg/dL Glucose 155 H (74-99) mg/dL Calcium 9.7 (8.4-10.2) mg/dL AST 47 (17-59) U/L ALT 37 (4-49) U/L Alkaline Phosphatase 117 (38-126) U/L Total Protein 7.2 (6.3-8.2) g/dL Albumin 4.2 (3.5-5.0) g/dL Calcium panel 06/09/24 Range/Units 09:52 Calcium 9.7 (8.4-10.2) mg/dL Albumin 4.2 (3.5-5.0) g/dL Pituitary panel 06/09/24 Range/Units 09:52 Sodium 138 (137-145) mmol/L Potassium 5.0 (3.5-5.1) mmol/L Chloride 99 (98-107) mmol/L Carbon Dioxide 31 H (22-30) mmol/L BUN 16 (9-20) mg/dL Creatinine 0.95 (0.66-1.25) mg/dL Glucose 155 H (74-99) mg/dL Calcium 9.7 (8.4-10.2) mg/dL Adrenal panel 06/09/24 Range/Units 09:52 Sodium 138 (137-145) mmol/L Potassium 5.0 (3.5-5.1) mmol/L Chloride 99 (98-107) mmol/L Carbon Dioxide 31 H (22-30) mmol/L BUN 16 (9-20) mg/dL Creatinine 0.95 (0.66-1.25) mg/dL Glucose 155 H (74-99) mg/dL Calcium 9.7 (8.4-10.2) mg/dL Total Bilirubin 0.5 (0.2-1.3) mg/dL AST 47 (17-59) U/L ALT 37 (4-49) U/L Alkaline Phosphatase 117 (38-126) U/L Total Protein 7.2 (6.3-8.2) g/dL Albumin 4.2 (3.5-5.0) g/dL - Imaging Comments: Right foot x-ray reports osteomyelitis of the fifth digit proximal and distal phalanx no soft tissue edema. No evidence of acute fracture. Multifocal degeneration changes throughout the joints of the foot. Assessment and Plan Assessment: 1. Right fifth toe diabetic wound infection 2. Osteomyelitis right fifth toe 3. Peripheral arterial disease with bilateral lower extremity revascularization 4. Coronary artery disease with cardiac stents 5. Diabetes mellitus 6. Hyperlipidemia and hypertension 7. Thyroid disorder 8. History of CML 9. Former smoker Plan: 1. Will order arterial ultrasound of lower extremities 2. Consult cardiology, patient supposed to see them tomorrow regarding HBO clearance, also need clearance for toe amputation 3. Antibiotics per recommendations from infectious disease 4. Tentative plan for right fifth toe amputation on 06/13/2024 5. Rest of medical management per primary medical team Thank you for this consultation, we will continue to follow. The impression and plan of care has been dictated as directed. Dr. Lizama I performed a history and examination of this patient, discussed the same with the dictator. I agree with the dictator's note ,documented as a scribe. Any additional findings or plans will be noted.
--- NOTE | 2024-06-09 13:17 | P.CRDCN ---
History of Present Illness History of present illness: HISTORY OF PRESENT ILLNESS: This is a 58-year-old male with a past medical history significant for coronary artery disease with previous stenting, peripheral arterial disease, hypertensio n, hyperlipidemia, and diabetes. Patient follows in the office with Dr. Chambers. We have been asked to see the patient in consultation for cardiac clearance. Patient examined at the bedside in the emergency room. Patient has a history of a right fifth toe wound since December. He presented to the ER with increasing redness. He was apparently supposed to begin hyperbaric oxygen treatments outpatient. Patient was evaluated by vascular surgery and is scheduled to undergo right toe amputation on 06/13/2024. Patient currently denies any chest pain or pressure. He denies any shortness of breath. Denies any dizziness or palpitations. DIAGNOSTICS: - EKG not available at the time of this dictation - Laboratory data: WBC 11.4. Hemoglobin 12.2. Platelet count 279. Sodium 138. Potassium 5.0. BUN 16. Creatinine 0.95. - Current home cardiac medications include aspirin 81 mg daily, Lipitor 40 mg at night, Lasix 20 mg daily, Aldactone 25 mg daily, Effient 10 mg daily and lisinopril 10 mg daily - Most recent echocardiogram obtained in 2021 revealed ejection fraction 25 to 30%, mild concentric LVH, mild MR, mild TR - Cardiac catheterization history: 07/2023 with PCI of the mid LAD REVIEW OF SYSTEMS: At the time of my exam: CONSTITUTIONAL: Denies fever or chills. HEENT: Denies blurred vision, vision changes, or eye pain. Denies hemoptysis CARDIOVASCULAR: Denies chest pain. Denies orthopnea. Denies PND. Denies palpitations RESPIRATORY: Denies shortness of breath. GASTROINTESTINAL: Denies abdominal pain. Denies nausea or vomiting. HEMATOLOGIC: Denies bleeding disorders. GENITOURINARY: Denies any blood in urine. SKIN: Denies pruitis. Denies rash. PHYSICAL EXAM: VITAL SIGNS: Reviewed. GENERAL: Well-developed in no acute distress. HEENT: Head is normocephalic. Pupils are equal, round. Sclerae anicteric. Mucous membranes of the mouth are moist. Neck supple. No JVD or thyromegaly LUNGS: Respirations even and unlabored. Lungs essentially clear to auscultation bilaterally. HEART: Regular rate and rhythm. S1 and S2 heard. ABDOMEN: Soft. Nondistended. Nontender. EXTREMITIES: Normal range of motion. No clubbing or cyanosis. Peripheral pulses intact. Bilateral lower extremity edema, right greater than left. Right 5th toe necrotic with surrounding redness. NEUROLOGIC: Awake and alert. Oriented x 3. ASSESSMENT: Right fifth toe wound with osteomyelitis Coronary artery disease with previous stenting, most recently to the mid LAD in July 2023 Ischemic cardiomyopathy, 25 to 30% Peripheral arterial disease, s/p percutaneous atherectomy of the right SFA & angioplasty of the right tibioperoneal trunk, 05/13/2024 Hypertension Hyperlipidemia Diabetes Former nicotine dependence PLAN: Obtain EKG Obtain 2D echo to assess cardiac structure and function Resume home cardiac medications Continue aspirin and Effient. Discussed with vascular surgery and okay to continue Effient. Patient scheduled for right fifth toe amputation with vascular surgery on 06/13/2024 No absolute contraindications for patient to proceed from a cardiac standpoint Further recommendations pending patient course Nurse practitioner note has been reviewed by physician. Signing provider agrees with the documented findings, assessment, and plan of care documented by LEATHER [employer]ER as a scribe. Past Medical History Past Medical History: Asthma, Coronary Artery Disease (CAD), Cancer, Chest Pain / Angina, Diabetes Mellitus, Hyperlipidemia, Hypertension, Osteoarthritis (OA), Pneumonia, Sleep Apnea/CPAP/BIPAP, Thyroid Disorder, Vascular Disorder Additional Past Medical History / Comment(s): CML- immmunosuppressed, carpal tunnel bilaterally, chronic dry mucosa from the [id number]-[id number] disease (especially of the eyes and oral cavity). mild Edema rt lower leg, abdominal hernia, no cpap used since wt loss, sleeps elevated, sepsis after dog bite to hand 2019. seasonal allergies, , recent SOB. [place] seen on stress test per pt. ( 2 weeks ago), c/o left sided neck pain, "it's the vein in that side of my neck", has had some N/V this week, will get nauseated occasionally anyway but seems more frequent this week, recent adm. [facility] for coronary stent, tired, SOB w/exertion History of Any Multi-Drug Resistant Organisms: None Reported Past Surgical History: Heart Catheterization With Stent, Joint Replacement Additional Past Surgical History / Comment(s): BONE MARROW TRANSPLANT 2006, Lt KNEE arthroscopy, left knee REPLACEMENT, SEPTAL SURG, BMTs bilateral ears, hemorrhoidectomy, colonoscopy, vasectomy, aortogram, atherectomy with balloon angioplasty 08/25/17. stent in legs 2020, recent card. cath Past Anesthesia/Blood Transfusion Reactions: No Reported Reaction Additional Past Anesthesia/Blood Transfusion Reaction / Comment(s): Pt has received blood without reaction. Mom had problems with dyes. Date of Last Stent Placement:: 08/11/23 Past Psychological History: Anxiety Smoking Status: Former smoker Past Alcohol Use History: None Reported Past Drug Use History: Marijuana - Past Family History Father Family Medical History: Coronary Artery Disease (CAD), Pulmonary Embolus Additional Family Medical History / Comment(s): cabg Mother Family Medical History: Dementia Additional Family Medical History / Comment(s): Mother at age 72yrs. Daughter(s) Family Medical History: Blood Disorder Additional Family Medical History / Comment(s): "they just keep bleeding' both daughters Medications and Allergies Home Medications Medication Instructions Recorded Confirmed Type Aspirin 81 mg PO DAILY 02/02/18 05/13/24 History metFORMIN HCL [Glucophage Xr] 750 mg PO BID 09/26/20 05/13/24 History Furosemide [Lasix] 40 mg PO DAILY 08/10/23 05/13/24 History Potassium Chloride [K-Tab ER] 20 meq PO HS 08/10/23 05/13/24 History Semaglutide [Ozempic] 1 mg SQ WE 08/10/23 05/13/24 History Cyclobenzaprine [Flexeril] 5 mg PO BID PRN 08/11/23 05/13/24 History Escitalopram [Lexapro] 10 mg PO HS 08/11/23 05/13/24 History lisinopriL [Zestril] 10 mg PO DAILY 08/11/23 05/13/24 History Atorvastatin [Lipitor] 80 mg PO HS #90 tab 08/12/23 05/13/24 Rx Nitroglycerin Sl Tabs [Nitrostat] 0.4 mg SUBLINGUAL Q5M PRN #25 tab 08/12/23 05/11/24 Rx Evolocumab [Repatha Sureclick] 140 mg SQ Q14D 08/18/23 05/11/24 History Prasugrel [Effient] 10 mg PO DAILY #90 tab 08/21/23 05/13/24 Rx Spironolactone 25 mg PO DAILY 05/11/24 05/13/24 History Allergies Allergy/AdvReac Type Severity Reaction Status Date / Time Penicillins Allergy Unknown Verified 06/09/24 09:19 Childhood Physical Exam Vitals: Vital Signs Temp Pulse Resp BP Pulse Ox 06/09/24 11:46 98 F 71 18 174/83 99 06/09/24 09:16 97.6 F 77 18 159/83 100 Intake and Output 06/08/24 06/09/24 06/09/24 22:59 06:59 14:59 Other: Weight 86.183 kg Results 06/09/24 09:52 06/09/24 09:52 Cardiac Enzymes 06/09/24 Range/Units 09:52 AST 47 (17-59) U/L CBC 06/09/24 Range/Units 09:52 WBC 11.4 H (3.8-10.6) k/uL RBC 4.33 (4.30-5.90) m/uL Hgb 12.2 L (13.0-17.5) gm/dL Hct 38.8 L (39.0-53.0) % Plt Count 379 (150-450) k/uL Comprehensive Metabolic Panel 06/09/24 Range/Units 09:52 Sodium 138 (137-145) mmol/L Potassium 5.0 (3.5-5.1) mmol/L Chloride 99 (98-107) mmol/L Carbon Dioxide 31 H (22-30) mmol/L BUN 16 (9-20) mg/dL Creatinine 0.95 (0.66-1.25) mg/dL Glucose 155 H (74-99) mg/dL Calcium 9.7 (8.4-10.2) mg/dL AST 47 (17-59) U/L ALT 37 (4-49) U/L Alkaline Phosphatase 117 (38-126) U/L Total Protein 7.2 (6.3-8.2) g/dL Albumin 4.2 (3.5-5.0) g/dL Current Medications Generic Name Dose Route Start Last Admin Trade Name Freq PRN Reason Stop Dose Admin Aspirin 81 mg 06/09/24 13:00 Aspirin 81 Mg PO DAILY [facility] Atorvastatin Calcium 40 mg 06/09/24 21:00 Atorvastatin 40 Mg Tab PO [facility] Furosemide 40 mg 06/10/24 09:00 Furosemide 40 Mg Tab PO DAILY JADEN Vancomycin HCl 1,500 mg/ 500 mls @ 167 mls/hr 06/09/24 11:00 06/09/24 11:34 Sodium Chloride IVPB 06/09/24 13:59 167 mls/hr ONCE ONE Administration Vancomycin HCl 1,500 mg/ 500 mls @ 167 mls/hr 06/09/24 21:00 Sodium Chloride IVPB Q12H JADEN Naloxone HCl 0.2 mg 06/09/24 10:59 Naloxone 0.4 Mg/Ml 1 Ml Vial IV Q2M PRN Opioid Reversal Spironolactone 25 mg 06/10/24 09:00 Spironolactone 25 Mg Tab PO DAILY JADEN Intake and Output 06/08/24 06/09/24 06/09/24 22:59 06:59 14:59 Other: Weight 86.183 kg Patient Weight 06/10/24 06:59 Weight 86.183 kg 06/09/24 09:52 06/09/24 09:52
[2024-06-09] MEDS: ASPIRIN 81 MG PO SCH (13:48)
--- NOTE | 2024-06-09 13:50 | US ---
EXAMINATION TYPE: US arterial LE multi level DATE OF EXAM: 06/09/2024 1:22 PM COMPARISONS: None. CLINICAL INDICATION: Male, 58 years old with history of Nonhealing wound right foot, hx PAD; Hx stent s BL LE (left knee to ankle, right unknown), and heart. Redness to RLE from small toe wound to calf TECHNIQUE: Systolic pressures were taken of the upper and lower extremity arteries with ankle-brachia l indices and toe brachial indices calculated bilaterally. History of: Smoker: Yes Hypertension: Yes Diabetic: Yes Hyperlipidemia: Yes TIA/CVA: No Previous Vascular Surgery: Yes CAD: Yes PA: Yes Vascular Ulcers: Yes Claudication: Yes Gangrene: Yes FINDINGS: Doppler Waveforms: Right: Monophasic Left: Biphasic Brachial Artery systolic pressure: Right: NA Left: NA Posterior Tibial artery systolic pressure: Right: NA Left: NA Dorsalis Pedis artery systolic pressure: Right: NA Left: NA Toe artery systolic pressure: Right: NA Left: NA Ankle-Brachial Indices: Right: NA Left: NA Toe Brachial Indices: Right: NA Left: NA (Normal > 0.6; Mild 0.35 - 0.59, Moderate 0.12 - 0.34, Severe <0.12) Unable to obtain pressures due to leg stents, waveforms only. IMPRESSION: ANABELL: Non diagnostic. [facility], , 06/09/2024 1:48 PM
--- NOTE | 2024-06-09 14:28 | P.HPIM ---
History of Present Illness H&P Date: 06/09/24 History of present illness; patient is a 58-year-old gentleman with past medical history significant for cardiomyopathy, peripheral artery disease, hypertension open to the ER for right foot wound. Patient stated that he has been dealing with his right foot wound since December and normally follows up outpatient with ID as well as vascular surgery. Patient noted that over the last 1 week the redness over his left foot had increased. Patient also complaining of more pain in his foot. Patient denies any fever or chills. There is no complaint of chest pain or shortness of breath. Patient denies any orthopnea or PND. There is no complaint of swelling of feet. Initial lab work done in the ER showed WBC 11.4, hemoglobin 12.2, platelet count 379, sodium 138, potassium 5, BUN 16, creatinine 0.95, glucose 155, AST 47, ALT 37, CRP 2.4 X-ray foot done showed osteomyelitis of the fifth digit proximal and distal phalanx Patient admitted to internal medicine service REVIEW OF SYSTEMS: CONSTITUTIONAL: As mentioned above HEENT: No recent visual problems or hearing problems. Denied any sore throat. CARDIOVASCULAR: No chest pain, orthopnea, PND, no palpitations, no syncope. PULMONARY: No shortness of breath, no cough, no hemoptysis. GASTROINTESTINAL: No diarrhea, no nausea, no vomiting, no abdominal pain. NEUROLOGICAL: No headaches, no weakness, no numbness. HEMATOLOGICAL: Denies any bleeding or petechiae. GENITOURINARY: Denies any burning micturition, frequency, or urgency. MUSCULOSKELETAL/RHEUMATOLOGICAL: As mentioned above ENDOCRINE: Denies any polyuria or polydipsia. The rest of the 14-point review of systems is negative. PHYSICAL EXAMINATION: GENERAL: The patient is alert and oriented x3, not in any acute distress. Well developed, well nourished. HEENT: Pupils are round and equally reacting to light. EOMI. No scleral icterus. No conjunctival pallor. Normocephalic, atraumatic. No pharyngeal erythema. No thyromegaly. CARDIOVASCULAR: S1 and S2 present. No murmurs, rubs, or gallops. PULMONARY: Chest is clear to auscultation, no wheezing or crackles. ABDOMEN: Soft, nontender, nondistended, normoactive bowel sounds. No palpable organomegaly. MUSCULOSKELETAL: No joint swelling or deformity. EXTREMITIES: No cyanosis, clubbing, or pedal edema. NEUROLOGICAL: Gross neurological examination did not reveal any focal deficits. SKIN: Right fifth toe discoloration with black eschar, erythema surrounding forefoot area Assessment and plan Right fifth toe osteomyelitis Right foot cellulitis Ischemic cardiomyopathy, 25 to 30% Peripheral arterial disease, s/p percutaneous atherectomy of the right SFA & angioplasty of the right tibioperoneal trunk, 05/13/2024 Hypertension Hyperlipidemia Diabetes Monitor vital signs Monitor CBC Monitor CMP Continue telemetry monitoring Ordered blood cultures Wound culture Start cefepime and vancomycin Resume home med Consult ID Consult vascular surgery Labs and medication were reviewed.. Continue same treatment. Continue with symptomatic treatment. Resume home medication. Monitor labs and vitals. DVT and GI prophylaxis. Further recommendations as per clinical course of the patient Dictation was produced using [email or web address] dictation software. please excuse any grammatical, word or spelling errors. Past Medical History Past Medical History: Asthma, Coronary Artery Disease (CAD), Cancer, Chest Pain / Angina, Diabetes Mellitus, Hyperlipidemia, Hypertension, Osteoarthritis (OA), Pneumonia, Sleep Apnea/CPAP/BIPAP, Thyroid Disorder, Vascular Disorder Additional Past Medical History / Comment(s): CML- immmunosuppressed, carpal tunnel bilaterally, chronic dry mucosa from the [id number]-[id number] disease (especially of the eyes and oral cavity). mild Edema rt lower leg, abdominal hernia, no cpap used since wt loss, sleeps elevated, sepsis after dog bite to hand 2019. seasonal allergies, , recent SOB. [place] seen on stress test per pt. ( 2 weeks ago), c/o left sided neck pain, "it's the vein in that side of my neck", has had some N/V this week, will get nauseated occasionally anyway but seems more frequent this week, recent adm. [facility] for coronary stent, tired, SOB w/exertion History of Any Multi-Drug Resistant Organisms: None Reported Past Surgical History: Heart Catheterization With Stent, Joint Replacement Additional Past Surgical History / Comment(s): BONE MARROW TRANSPLANT 2006, Lt KNEE arthroscopy, left knee REPLACEMENT, SEPTAL SURG, BMTs bilateral ears, hemo rrhoidectomy, colonoscopy, vasectomy, aortogram, atherectomy with balloon angioplasty 08/25/17. stent in legs 2020, recent card. cath Past Anesthesia/Blood Transfusion Reactions: No Reported Reaction Additional Past Anesthesia/Blood Transfusion Reaction / Comment(s): Pt has received blood without reaction. Mom had problems with dyes. Date of Last Stent Placement:: 08/11/23 Past Psychological History: Anxiety Smoking Status: Former smoker Past Alcohol Use History: None Reported Past Drug Use History: Marijuana - Past Family History Father Family Medical History: Coronary Artery Disease (CAD), Pulmonary Embolus Additional Family Medical History / Comment(s): cabg Mother Family Medical History: Dementia Additional Family Medical History / Comment(s): Mother at age 72yrs. Daughter(s) Family Medical History: Blood Disorder Additional Family Medical History / Comment(s): "they just keep bleeding' both daughters Medications and Allergies Home Medications Medication Instructions Recorded Confirmed Type Aspirin 81 mg PO DAILY 02/02/18 06/09/24 History metFORMIN HCL [Glucophage Xr] 750 mg PO BID 09/26/20 06/09/24 History Furosemide [Lasix] 40 mg PO DAILY 08/10/23 06/09/24 History Potassium Chloride [K-Tab ER] 20 meq PO HS 08/10/23 06/09/24 History Semaglutide [Ozempic] 1 mg SQ WE 08/10/23 06/09/24 History Cyclobenzaprine [Flexeril] 5 mg PO BID PRN 08/11/23 06/09/24 History lisinopriL [Zestril] 10 mg PO DAILY 08/11/23 06/09/24 History Atorvastatin [Lipitor] 80 mg PO HS #90 tab 08/12/23 06/09/24 Rx Nitroglycerin Sl Tabs [Nitrostat] 0.4 mg SUBLINGUAL Q5M PRN #25 tab 08/12/23 06/09/24 Rx Evolocumab [Repatha Sureclick] 140 mg SQ Q14D 08/18/23 06/09/24 History Prasugrel [Effient] 10 mg PO DAILY #90 tab 08/21/23 06/09/24 Rx Spironolactone 25 mg PO DAILY 05/11/24 06/09/24 History Cephalexin [Keflex] 500 mg PO Q6HR 06/09/24 06/09/24 History Escitalopram [Lexapro] 20 mg PO HS 06/09/24 06/09/24 History Gabapentin 300 mg PO BID 06/09/24 06/09/24 History ondansetron HCL [Zofran] 8 mg PO TID PRN 06/09/24 06/09/24 History Allergies Allergy/AdvReac Type Severity Reaction Status Date / Time Penicillins Allergy Unknown Verified 06/09/24 13:51 Childhood Physical Exam Vitals: Vital Signs Temp Pulse Resp BP Pulse Ox 06/09/24 13:57 67 18 153/65 99 06/09/24 11:46 98 F 71 18 174/83 99 06/09/24 09:16 97.6 F 77 18 159/83 100 Intake and Output 06/08/24 06/09/24 06/09/24 22:59 06:59 14:59 Other: Weight 86.183 kg Results CBC & Chem 7: 06/09/24 09:52 06/09/24 09:52 Labs: Abnormal Lab Results - Last 24 Hours (Table) 06/09/24 06/09/24 Range/Units 09:52 09:52 WBC 11.4 H (3.8-10.6) k/uL Hgb 12.2 L (13.0-17.5) gm/dL Hct 38.8 L (39.0-53.0) % Carbon Dioxide 31 H (22-30) mmol/L Glucose 155 H (74-99) mg/dL C-Reactive Protein 2.4 H (<1.0) mg/dL
[2024-06-09 16:49] LABS: Glucose,Whole Blood 140 mg/dL (70-110)
[2024-06-09] MEDS: CYCLOBENZAPRINE 5 MG TAB PO PRN (18:05)
[2024-06-09] MEDS: CEFEPIME 2 GM in SODIUM CHLORIDE 0.9% 100 ML IVPB SCH (20:38)
[2024-06-09] MEDS: ATORVASTATIN 40 MG TAB PO SCH (20:39)
[2024-06-09] MEDS: GABAPENTIN 300 MG CAP PO SCH (20:39)
[2024-06-09] MEDS: ESCITALOPRAM 20 MG TAB PO SCH (20:39)
[2024-06-09 20:42] LABS: Glucose,Whole Blood 125 mg/dL (70-110)
[2024-06-09] MEDS: VANCOMYCIN 1,500 MG in SODIUM CHLORIDE 0.9% 500 ML 500 ML IVPB SCH (21:27)
[2024-06-09] MEDS: HYDROcodone/APAP 5-325MG 1 EACH TAB PO PRN (22:22)
--- NOTE | 2024-06-09 23:21 | P.CONS ---
History of Present Illness - Reason for Consult Consult date: 06/09/24 Osteomyelitis Requesting physician: Dylan Rascon - Chief Complaint Right fifth toe discoloration swelling and redness x days - History of Present Illness Patient is a 58-year-old male with a past medical history significant for diabetes mellitus hypertension hyperlipidemia osteomyelitis has been dealing with wound to the right fifth toe since December 2023 and did have a partial amputation of that toe done by his hospitality coordinator patient has been sent to the [facility] from the wound care by his hospitality coordinator concerning for worsening of right fifth toe gangrene with associated cellulitis patient did mention the area has been draining more black for the last few days denies any history of any trauma did have diabetic neuropathy denies significant or any worsening pain with associated surrounding swelling redness and did have some drainage denies high- grade fever or any chills no fever was recorded on presentation to the hospital patient was nontachycardic hypotensive or hypoxic he did have white count of 11.4 creatinine 0.95 electrolytes has been normal patient did have x-ray of the foot osteomyelitis of the fifth digit proximal distal phalanx no evidence for acute fracture patient was started on cefepime and vancomycin infectious disease was consulted for further management of antibiotic therapy last culture positive from the right fifth toe on 05/20/2024 has been MSSA and Streptococcus agalactiae Review of Systems Positive point and negatives has been mentioned in the HPI, complete review of systems was performed and all other systems are negative Past Medical History Past Medical History: Asthma, Coronary Artery Disease (CAD), Cancer, Chest Pain / Angina, Diabetes Mellitus, Hyperlipidemia, Hypertension, Osteoarthritis (OA), Pneumonia, Sleep Apnea/CPAP/BIPAP, Thyroid Disorder, Vascular Disorder Additional Past Medical History / Comment(s): CML- immmunosuppressed, carpal tunnel bilaterally, chronic dry mucosa from the [id number] disease (e specially of the eyes and oral cavity). mild Edema rt lower leg, abdominal hernia, no cpap used since wt , sleeps elevated, sepsis after dog bite to hand 2019. seasonal allergies, , recent SOB. [place] seen on stress test per pt. ( 2 weeks ago), c/o left sided neck pain, "it's the vein in that side of my neck", has had some N/V this week, will get nauseated occasionally anyway but seems more frequent this week, recent adm. [facility] for coronary stent, tired, SOB w/exertion History of Any Multi-Drug Resistant Organisms: None Reported Past Surgical History: Heart Catheterization With Stent, Joint Replacement Additional Past Surgical History / Comment(s): BONE MARROW TRANSPLANT 2006, Lt KNEE arthroscopy, left knee REPLACEMENT, SEPTAL SURG, BMTs bilateral ears, hemorrhoidectomy, colonoscopy, vasectomy, aortogram, atherectomy with balloon angioplasty 08/25/17. stent in legs 2020, recent card. cath Past Anesthesia/Blood Transfusion Reactions: No Reported Reaction Additional Past Anesthesia/Blood Transfusion Reaction / Comm: Pt has received blood without reaction. Mom had problems with dyes. Date of Last Stent Placement:: 08/11/23 Past Psychological History: Anxiety Smoking Status: Former smoker Past Alcohol Use History: None Reported Past Drug Use History: Marijuana - Past Family History Father Family Medical History: Coronary Artery Disease (CAD), Pulmonary Embolus Additional Family Medical History / Comment(s): cabg Mother Family Medical History: Dementia Additional Family Medical History / Comment(s): Mother at age 72yrs. Daughter(s) Family Medical History: Blood Disorder Additional Family Medical History / Comment(s): "they just keep bleeding' both daughters Medications and Allergies Home Medications Medication Instructions Recorded Confirmed Type Aspirin 81 mg PO DAILY 02/02/18 06/09/24 History metFORMIN HCL [Glucophage Xr] 750 mg PO BID 09/26/20 06/09/24 History Furosemide [Lasix] 40 mg PO DAILY 08/10/23 06/09/24 History Potassium Chloride [K-Tab ER] 20 meq PO HS 08/10/23 06/09/24 History Semaglutide [Ozempic] 1 mg SQ WE 08/10/23 06/09/24 History Cyclobenzaprine [Flexeril] 5 mg PO BID PRN 08/11/23 06/09/24 History lisinopriL [Zestril] 10 mg PO DAILY 08/11/23 06/09/24 History Atorvastatin [Lipitor] 80 mg PO HS #90 tab 08/12/23 06/09/24 Rx Nitroglycerin Sl Tabs [Nitrostat] 0.4 mg SUBLINGUAL Q5M PRN #25 tab 08/12/23 06/09/24 Rx Evolocumab [Repatha Sureclick] 140 mg SQ Q14D 08/18/23 06/09/24 History Prasugrel [Effient] 10 mg PO DAILY #90 tab 08/21/23 06/09/24 Rx Spironolactone 25 mg PO DAILY 05/11/24 06/09/24 History Cephalexin [Keflex] 500 mg PO Q6HR 06/09/24 06/09/24 History Escitalopram [Lexapro] 20 mg PO HS 06/09/24 06/09/24 History Gabapentin 300 mg PO BID 06/09/24 06/09/24 History ondansetron HCL [Zofran] 8 mg PO TID PRN 06/09/24 06/09/24 History Allergies Allergy/AdvReac Type Severity Reaction Status Date / Time Penicillins Allergy Unknown Verified 06/09/24 13:51 Childhood Physical Exam Vitals: Vital Signs Temp Pulse Resp BP Pulse Ox 06/09/24 11:46 98 F 71 18 174/83 99 06/09/24 09:16 97.6 F 77 18 159/83 100 Intake and Output 06/08/24 06/09/24 06/09/24 22:59 06:59 14:59 Other: Weight 86.183 kg GENERAL DESCRIPTION: Middle-age male lying in bed, no distress. No tachypnea or accessory muscle of respiration use. HEENT: Shows Pallor , no scleral icterus. Oral mucous membrane is dry. No pharyngeal erythema or thrush NECK: Trachea central, no thyromegaly. LUNGS: Unlabored breathing. Clear to auscultation anteriorly. No wheeze or crackle. HEART: S1, S2, regular rate and rhythm. No loud murmur ABDOMEN: Soft, no tenderness , guarding or rigidity, no organomegaly EXTREMITIES: Right fifth through with blackish discoloration some purulent drainage was cultured with surrounding swelling and redness SKIN: No rash, no masses palpable. NEUROLOGICAL: The patient is awake, alert, oriented x3, mood and affect normal. Results CBC & Chem 7: 06/09/24 09:52 06/09/24 09:52 Labs: Abnormal Lab Results - Last 24 Hours (Table) 06/09/24 06/09/24 Range/Units 09:52 09:52 WBC 11.4 H (3.8-10.6) k/uL Hgb 12.2 L (13.0-17.5) gm/dL Hct 38.8 L (39.0-53.0) % Carbon Dioxide 31 H (22-30) mmol/L Glucose 155 H (74-99) mg/dL C-Reactive Protein 2.4 H (<1.0) mg/dL Assessment and Plan (1) Gangrene of toe of right foot Current Visit: Yes Status: Acute Code(s): I96 - GANGRENE, NOT ELSEWHERE CLASSIFIED SNOMED Code(s): 80859296442141814 (2) Diabetic infection of right foot Current Visit: Yes Status: Acute Code(s): E11.628 - TYPE 2 DIABETES MELLITUS WITH OTHER SKIN COMPLICATIONS; L08.9 - LOCAL INFECTION OF THE SKIN AND SUBCUTANEOUS TISSUE, UNSP SNOMED Code(s): 296011002 (3) Penicillin allergy Current Visit: Yes Status: Acute Code(s): Z88.0 - ALLERGY STATUS TO PENICILLIN SNOMED Code(s): 57142205 (4) Osteomyelitis Current Visit: Yes Status: Acute Code(s): M86.9 - OSTEOMYELITIS, UNSPECIFIED SNOMED Code(s): 81291703 Plan: 1patient presented to hospital with right fifth toe discoloration with surrounding swelling redness abnormal x-ray suggestive of osteomyelitis in this patient with underlying history of diabetes mellitus and diabetic foot infection we need to cover for the polymicrobial chago associated with such condition 2-penicillin allergy that will limit the number of antibiotics safe to use 3-local culture have been obtained and will guide further antibiotic therapy 4-patient will empirically treat with vancomycin and cefepime while waiting for the workup to be completed We will follow on clinical condition and cultures to further adjust medication if needed Thank you for this consultation we will follow the patient along with you Dictation was produced using [employer] software. please excuse any grammatical, word or spelling errors.
[2024-06-10 08:11] LABS: ALT 30 U/L (10-49); AST 25 U/L (14-35); Albumin 3.7 g/dL (3.8-4.9); Albumin/Globulin Ratio 1.61 Ratio (1.60-3.17); Alkaline Phosphatase 76 U/L (41-126); BUN/Creat Ratio 14.22 Ratio (12.00-20.00); Blood Urea Nitrogen 12.8 mg/dL (9.0-27.0); Calcium 9.1 mg/dL (8.7-10.3); Carbon Dioxide 26.6 mmol/L (21.6-31.8); Chloride 106 mmol/L (96-109); Globulin 2.3 g/dL (1.6-3.3); Glucose 120 mg/dL (70-110); Potassium 4.3 mmol/L (3.5-5.5); Sodium 142 mmol/L (135-145); Total Bilirubin 0.4 mg/dL (0.3-1.2)
[2024-06-10 08:39] LABS: Basophils # (A) 0.09 X 10*3/uL (0.00-0.10); Basophils % (A) 0.9 %; Eosinophils # (A) 0.26 X 10*3/uL (0.04-0.35); Eosinophils % (A) 2.5 %; HCT 33.6 % (39.6-50.0); HGB 10.8 g/dL (13.0-17.0); Lymphocytes # (A) 4.14 X 10*3/uL (0.90-5.00); Lymphocytes % (A) 40.2 %; MCH 28.4 pg (27.0-32.0); MCHC 32.1 g/dL (32.0-37.0); MCV 88.4 FL (80.0-97.0); Mean Platelet Volume 9.4 FL (9.5-12.2); Monocytes # (A) 1.16 X 10*3/uL (0.20-1.00); Monocytes % (A) 11.3 %; NRBC Per 100 WBC 0 X 10*3/uL (0.00-0.01); Neutrophils # (A) 4.61 X 10*3/uL (1.80-7.70); Neutrophils % (A) 44.6 %; Platelet Count 414 X 10*3/uL (140-440); RDW 15.8 % (11.5-14.5); WBC 10.31 X 10*3/uL (4.50-10.00)
[2024-06-10] MEDS: PRASUGREL 10 MG TAB PO SCH (08:46)
[2024-06-10] MEDS: FUROSEMIDE 40 MG TAB PO SCH (08:46)
[2024-06-10] MEDS: lisinopriL 10 MG TAB PO SCH (08:46)
[2024-06-10] MEDS: SPIRONOLACTONE 25 MG TAB PO SCH (08:46)
--- NOTE | 2024-06-10 11:31 | P.PN ---
Subjective Progress Note Date: 06/10/24 Principal diagnosis: Osteomyelitis, chronic wound This is a pleasant 58-year-old male who we are seeing in follow-up. He is admitted for osteomyelitis of the right fifth toe with a chronic nonhealing wound. Concerns for infection with erythema and swelling of the right foot. He states pain is about the same, feels that the redness has improved some. Has complaints of neuropathy. Arterial ultrasound ordered for ABIs which were not completed. Monophasic waveforms on the right lower extremity with biphasic on the left. Patient has been afebrile. He is on IV antibiotics. Objective - Vital Signs Vital signs: Vital Signs Temp 98.3 F 06/10/24 00:30 Pulse 77 06/10/24 00:30 Resp 15 06/10/24 00:30 BP 145/72 06/10/24 00:30 Pulse Ox 94 L 06/10/24 00:30 FiO2 Intake & Output 06/09/24 06/10/24 06/10/24 18:59 06:59 18:59 Intake Total 1650 Balance 1650 Weight 86.183 kg Intake: Oral 1650 Other: Voiding Method Toilet # Voids 1 5 # Bowel Movements 2 - Exam General appearance: The patient is alert, oriented, appears in no acute distress. HET: Head is normocephalic and atraumatic. Pupils are equal and reactive. Neck: Supple. Heart: Regular. Lungs: Equal expansion, normal respiratory effort. Abdomen: Soft, nontender, nondistended. Extremities: Right lower extremity swelling, lateral side of dorsal aspect of foot surrounding fifth toe and along lower oh with erythema. Fifth toe angy grenous wound with no drainage. Foot warm to the touch with good capillary refill, sensorimotor intact. Neurological: No focal deficits. Strength and sensation are grossly intact. - Labs CBC & Chem 7: 06/10/24 05:39 06/10/24 05:39 Labs: Abnormal Lab Results - Last 24 Hours (Table) 06/09/24 06/09/24 06/09/24 Range/Units 09:52 09:52 16:48 WBC 11.4 H (3.8-10.6) k/uL Hgb 12.2 L (13.0-17.5) gm/dL Hct 38.8 L (39.0-53.0) % Carbon Dioxide 31 H (22-30) mmol/L Glucose 155 H (74-99) mg/dL POC Glucose (mg/dL) 140 H (70-110) mg/dL C-Reactive Protein 2.4 H (<1.0) mg/dL Total Protein (6.2-8.2) g/dL Albumin (3.8-4.9) g/dL 06/09/24 06/10/24 Range/Units 20:41 05:39 WBC (3.8-10.6) k/uL Hgb (13.0-17.5) gm/dL Hct (39.0-53.0) % Carbon Dioxide (22-30) mmol/L Glucose 120 H (74-99) mg/dL POC Glucose (mg/dL) 125 H (70-110) mg/dL C-Reactive Protein (<1.0) mg/dL Total Protein 6.0 L (6.2-8.2) g/dL Albumin 3.7 L (3.8-4.9) g/dL Microbiology - Last 24 Hours (Table) 06/09/24 12:30 Gram Stain - Preliminary Foot - Right Assessment and Plan Assessment: 1. Right fifth toe diabetic wound infection 2. Osteomyelitis right fifth toe 3. Peripheral arterial disease with bilateral lower extremity revascularization 4. Coronary artery disease with cardiac stents 5. Diabetes mellitus 6. Hyperlipidemia and hypertension 7. Thyroid disorder 8. History of CML 9. Former smoker Plan: 1. Discussed with welding technician would like ABIs performed 2. Cardiology on consult, appreciate their recommendations. Awaiting echocardiogram results. No absolute contraindications to proceed for toe amputation from a cardiac standpoint. 3. Antibiotics per recommendations from infectious disease 4. Tentative plan for right fifth toe amputation on 06/13/2024 5. May continue Effient 6. Rest of medical management per primary medical team Thank you for this consultation, we will continue to follow. The impression and plan of care has been dictated as directed. Dr. Fall I performed a history and examination of this patient, discussed the same with the dictator. I agree with the dictator's note ,documented as a scribe. Any additional findings or plans will be noted.
--- NOTE | 2024-06-10 12:18 | P.PN ---
Subjective HISTORY OF PRESENT ILLNESS: This is a 58-year-old male with a past medical history significant for coronary artery disease with previous stenting, peripheral arterial disease, hypertension, hyperlipidemia, and diabetes. Patient follows in the office with Dr. Chambers. We have been asked to see the patient in consultation for cardiac clearance. Patient examined at the bedside in the emergency room. Patient has a history of a right fifth toe wound since December. He presented to the ER with increasing redness. He was apparently supposed to begin hyperbaric oxygen treatments outpatient. Patient was evaluated by vascular surgery and is schedule d to undergo right toe amputation on 06/13/2024. Patient currently denies any chest pain or pressure. He denies any shortness of breath. Denies any dizziness or palpitations. DIAGNOSTICS: - EKG not available at the time of this dictation - Laboratory data: WBC 11.4. Hemoglobin 12.2. Platelet count 279. Sodium 138. Potassium 5.0. BUN 16. Creatinine 0.95. - Current home cardiac medications include aspirin 81 mg daily, Lipitor 40 mg at night, Lasix 20 mg daily, Aldactone 25 mg daily, Effient 10 mg daily and lisinopril 10 mg daily - Most recent echocardiogram obtained in 2021 revealed ejection fraction 25 to 30%, mild concentric LVH, mild MR, mild TR - Cardiac catheterization history: 07/2023 with PCI of the mid LAD 06/10/2024 Patient examined this morning at the bedside. Patient currently denies any chest pain or pressure. He denies any shortness of breath. Vital signs are stable. EKG obtained revealing sinus mechanism with T wave versions in V4V6. 2D echo remains pending. PHYSICAL EXAM: VITAL SIGNS: Reviewed. GENERAL: Well-developed in no acute distress. HEENT: Head is normocephalic. Pupils are equal, round. Sclerae anicteric. Mucous membranes of the mouth are moist. Neck supple. No JVD or thyromegaly LUNGS: Respirations even and unlabored. Lungs essentially clear to auscultation bilaterally. HEART: Regular rate and rhythm. S1 and S2 heard. ABDOMEN: Soft. Nondistended. Nontender. EXTREMITIES: Normal range of motion. No clubbing or cyanosis. Peripheral pulses intact. Bilateral lower extremity edema, right greater than left. Right 5th toe necrotic with surrounding redness. NEUROLOGIC: Awake and alert. Oriented x 3. ASSESSMENT: Right fifth toe wound with osteomyelitis Coronary artery disease with previous stenting, most recently to the mid LAD in July 2023 Ischemic cardiomyopathy, 25 to 30% Peripheral arterial disease, s/p percutaneous atherectomy of the right SFA & angioplasty of the right tibioperoneal trunk, 05/13/2024 Hypertension Hyperlipidemia Diabetes Former nicotine dependence PLAN: 2D echo ordered. Await results. Continue aspirin and Effient. Discussed with vascular surgery and okay to continue Effient. Patient scheduled for right fifth toe amputation with vascular surgery on 06/13/2024 No absolute contraindications for patient to proceed from a cardiac standpoint No further inpatient recommendations from a cardiac standpoint We will sign off. Please reconsult if needed. Nurse practitioner note has been reviewed by physician. Signing provider agrees with the documented findings, assessment, and plan of care documented by BLOCK HAND as a scribe. Objective - Vital Signs Vital signs: Vital Signs Temp 97.8 F 06/10/24 07:24 Pulse 72 06/10/24 07:24 Resp 18 06/10/24 07:24 BP 149/71 06/10/24 07:24 Pulse Ox 97 06/10/24 07:24 FiO2 Intake & Output 06/09/24 06/10/24 06/10/24 18:59 06:59 18:59 Intake Total 1650 Balance 1650 Weight 86.183 kg Intake: Oral 1650 Other: Voiding Method Toilet # Voids 1 5 # Bowel Movements 2 - Labs CBC & Chem 7: 06/10/24 05:39 06/10/24 05:39 Labs: Abnormal Lab Results - Last 24 Hours (Table) 06/09/24 06/09/24 06/10/24 Range/Units 16:48 20:41 05:39 WBC 10.31 H (4.50-10.00) X 10*3/uL RBC 3.80 L (4.40-5.60) X 10*6/uL Hgb 10.8 L (13.0-17.0) g/dL Hct 33.6 L (39.6-50.0) % RDW 15.8 H (11.5-14.5) % MPV 9.4 L (9.5-12.2) FL Immature Gran # 0.05 H (0.00-0.04) X 10*3/uL Monocytes # 1.16 H (0.20-1.00) X 10*3/uL Glucose (70-110) mg/dL POC Glucose (mg/dL) 140 H 125 H (70-110) mg/dL Total Protein (6.2-8.2) g/dL Albumin (3.8-4.9) g/dL 06/10/24 Range/Units 05:39 WBC (4.50-10.00) X 10*3/uL RBC (4.40-5.60) X 10*6/uL Hgb (13.0-17.0) g/dL Hct (39.6-50.0) % RDW (11.5-14.5) % MPV (9.5-12.2) FL Immature Gran # (0.00-0.04) X 10*3/uL Monocytes # (0.20-1.00) X 10*3/uL Glucose 120 H (70-110) mg/dL POC Glucose (mg/dL) (70-110) mg/dL Total Protein 6.0 L (6.2-8.2) g/dL Albumin 3.7 L (3.8-4.9) g/dL Microbiology - Last 24 Hours (Table) 06/09/24 12:30 Gram Stain - Preliminary Foot - Right Wound Culture - Preliminary
--- NOTE | 2024-06-10 13:37 | P.PN ---
Subjective Progress Note Date: 06/10/24 patient is a 58-year-old gentleman with past medical history significant for cardiomyopathy, peripheral artery disease, hypertension open to the ER for right foot wound. Patient stated that he has been dealing with his right foot wound since December and normally follows up outpatient with ID as well as vascular surgery. Patient noted that over the last 1 week the redness over his left foot had increased. Patient also complaining of more pain in his foot. Patient denies any fever or chills. There is no complaint of chest pain or shortness of breath. Patient denies any orthopnea or PND. There is no complaint of swelling of feet. Initial lab work done in the ER showed WBC 11.4, hemoglobin 12.2, platelet count 379, sodium 138, potassium 5, BUN 16, creatinine 0.95, glucose 155, AST 47, ALT 37, CRP 2.4 X-ray foot done showed osteomyelitis of the fifth digit proximal and distal phalanx Patient admitted to internal medicine service 06/10. Patient seen and examined. Denies any foot pain. Denies any fever or chills. Vital signs stable REVIEW OF SYSTEMS: CONSTITUTIONAL: No fever, no malaise,. CARDIOVASCULAR: No chest pain, no palpitations, no syncope. PULMONARY: No shortness of breath, no cough, GASTROINTESTINAL: No diarrhea, no nausea, no vomiting, no abdominal pain. NEUROLOGICAL: No headaches, no weakness, PHYSICAL EXAMINATION: GENERAL: The patient is alert and oriented x3, not in any acute distress. Well developed, well nourished. HEENT: Pupils are round and equally reacting to light. EOMI. No scleral icterus. No conjunctival pallor. Normocephalic, atraumatic. No pharyngeal erythema. No thyromegaly. CARDIOVASCULAR: S1 and S2 present. No murmurs, rubs, or gallops. PULMONARY: Chest is clear to auscultation, no wheezing or crackles. ABDOMEN: Soft, nontender, nondistended, normoactive bowel sounds. No palpable organomegaly. MUSCULOSKELETAL: No joint swelling or deformity. EXTREMITIES: No cyanosis, clubbing, or pedal edema. NEUROLOGICAL: Gross neurological examination did not reveal any focal deficits. SKIN: Right fifth toe discoloration with black eschar, erythema surrounding forefoot area Assessment and plan Right fifth toe osteomyelitis Right foot cellulitis Ischemic cardiomyopathy, 25 to 30% Peripheral arterial disease, s/p percutaneous atherectomy of the right SFA & angioplasty of the right tibioperoneal trunk, 05/13/2024 Hypertension Hyperlipidemia Diabetes Monitor vital signs Monitor CBC Monitor CMP Continue telemetry monitoring Follow-up on blood cultures Follow-up on wound culture continue cefepime and vancomycin Continue aspirin, Lipitor Continue Lasix Continue lisinopril and Aldactone ID following Vascular surgery following, planning surgery on Thursday Labs and medication were reviewed.. Continue same treatment. Continue with symptomatic treatment. Resume home medication. Monitor labs and vitals. DVT a nd GI prophylaxis. Further recommendations as per clinical course of the patient Dictation was produced using [employer] dictation software. please excuse any grammatical, word or spelling errors. Objective - Vital Signs Vital signs: Vital Signs Temp 97.8 F 06/10/24 07:24 Pulse 72 06/10/24 07:24 Resp 18 06/10/24 07:24 BP 149/71 06/10/24 07:24 Pulse Ox 97 06/10/24 07:24 FiO2 Intake & Output 06/09/24 06/10/24 06/10/24 18:59 06:59 18:59 Intake Total 1650 Balance 1650 Weight 86.183 kg Intake: Oral 1650 Other: Voiding Method Toilet # Voids 1 5 # Bowel Movements 2 - Labs CBC & Chem 7: 06/10/24 05:39 06/10/24 05:39 Labs: Abnormal Lab Results - Last 24 Hours (Table) 06/09/24 06/09/24 06/09/24 Range/Units 09:52 09:52 16:48 WBC 11.4 H (3.8-10.6) k/uL RBC (4.40-5.60) X 10*6/uL Hgb 12.2 L (13.0-17.5) gm/dL Hct 38.8 L (39.0-53.0) % RDW (11.5-14.5) % MPV (9.5-12.2) FL Immature Gran # (0.00-0.04) X 10*3/uL Monocytes # (0.20-1.00) X 10*3/uL Carbon Dioxide 31 H (22-30) mmol/L Glucose 155 H (74-99) mg/dL POC Glucose (mg/dL) 140 H (70-110) mg/dL C-Reactive Protein 2.4 H (<1.0) mg/dL Total Protein (6.2-8.2) g/dL Albumin (3.8-4.9) g/dL 06/09/24 06/10/24 06/10/24 Range/Units 20:41 05:39 05:39 WBC 10.31 H (3.8-10.6) k/uL RBC 3.80 L (4.40-5.60) X 10*6/uL Hgb 10.8 L (13.0-17.5) gm/dL Hct 33.6 L (39.0-53.0) % RDW 15.8 H (11.5-14.5) % MPV 9.4 L (9.5-12.2) FL Immature Gran # 0.05 H (0.00-0.04) X 10*3/uL Monocytes # 1.16 H (0.20-1.00) X 10*3/uL Carbon Dioxide (22-30) mmol/L Glucose 120 H (74-99) mg/dL POC Glucose (mg/dL) 125 H (70-110) mg/dL C-Reactive Protein (<1.0) mg/dL Total Protein 6.0 L (6.2-8.2) g/dL Albumin 3.7 L (3.8-4.9) g/dL Microbiology - Last 24 Hours (Table) 06/09/24 12:30 Gram Stain - Preliminary Foot - Right
--- NOTE | 2024-06-10 14:45 | CA ---
Transthoracic Echo Report Name: Alber Davison Age: 58 Gender: M : 1965 Exam Date: 06/10/2024 08:14 Exam Location: [facility] Ht (in): 68 Wt (lb): 190 Ordering Physician: Marysol Madrid Attending/Referring Phys: [id number], [facility] Cheri Asencio, GABBI Procedure CPT: Indications: LV function, cardiac clearance, hx of CAD with PCI Cardiac Hx: Technical Quality: Fair Contrast 1: Definity Total Dose (mL): 2 Contrast 2: Total Dose (mL): MEASUREMENTS (Male / Female) Normal Values 2D ECHO LV Diastolic Diameter PLAX 5.6 cm 4.2 - 5.9 / 3.9 - 5.3 cm LV Systolic Diameter PLAX 4.1 cm IVS Diastolic Thickness 1.2 cm 0.6 - 1.0 / 0.6 - 0.9 cm LVPW Diastolic Thickness 1.3 cm 0.6 - 1.0 / 0.6 - 0.9 cm LV Relative Wall Thickness 0.4 RV Internal Dim ED PLAX 3.8 cm LA Systolic Diameter LX 4.1 cm 3.0 - 4.0 / 2.7 - 3.8 cm LV Diastolic Volume MOD BP 142.1 cm??? 67 - 155 / 56 - 104 cm??? LV Systolic Volume MOD BP 73.1 cm??? 22 - 58 / 19 - 49 cm??? LV Ejection Fraction MOD BP 48.5 % >= 55 % LV Cardiac Index MOD BP 2351.1 cm???/min???m??? LV Diastolic Volume MOD 4C 155.8 cm??? LV Systolic Volume MOD 4C 82.8 cm??? LV Ejection Fraction MOD 4C 46.9 % LV Cardiac Index MOD 4C 2489.7 cm???/min???m??? LV Diastolic Length 4C 8.6 cm LV Systolic Length 4C 7.7 cm LV Diastolic Volume MOD 2C 127.2 cm??? LV Systolic Volume MOD 2C 59.6 cm??? LV Ejection Fraction MOD 2C 53.1 % LV Cardiac Index MOD 2C 2303.4 cm???/min???m??? LV Diastolic Length 2C 8.8 cm LV Systolic Length 2C 7.0 cm M-MODE Aortic Root Diameter MM 4.1 cm DOPPLER AV Peak Velocity 156.0 cm/s AV Peak Gradient 9.7 mmHg Mitral E Point Velocity 73.3 cm/s Mitral A Point Velocity 92.1 cm/s Mitral E to A Ratio 0.8 MV Deceleration Time 265.9 ms MV E' Velocity 5.8 cm/s Mitral E to MV E' Ratio 12.7 FINDINGS Left Ventricle Left ventricular ejection fraction is estimated at 45-50 %. Mildly increased septal wall thickness. Moderately increased left ventricular systolic volume. Mildly decreased left ventricular ejection fraction. Right Ventricle Moderate right ventricular dilatation. Unable to estimate the right ventricular systolic pressure. Right Atrium Normal right atrial size. No right atrial thrombus or mass seen. Left Atrium Mild left atrial dilatation. No left atrial thrombus or mass present. Mitral Valve Mitral valve thickened. Mitral annular calcification. No mitral regurgitation. Aortic Valve Trileaflet aortic valve. Thickened aortic valve without stenosis. No aortic regurgitation. Tricuspid Valve Structurally normal tricuspid valve. No tricuspid stenosis, regurgitation or prolapse. Pulmonic Valve Structurally normal pulmonic valve. Trace pulmonic regurgitation. Pericardium No pericardial effusion. Aorta Moderate aortic dilatation at the level of the sinuses of valsalva 41 mm CONCLUSIONS Mildly impaired LV function with EF between 45 to 50% Aortic sclerosis with no significant stenosis identified Previewed by: Dr. Demetri Hess MD (Electronically Signed) Final Date: 10 June 2024 14:44
--- NOTE | 2024-06-10 15:10 | P.PN ---
Subjective Progress Note Date: 06/10/24 Principal diagnosis: Reason for follow-up is right fifth toe diabetic foot infec tion/gangrene/osteomyelitis Patient is a 58-year-old male with a past medical history significant for diabetes mellitus hypertension hyperlipidemia osteomyelitis has been dealing with wound to the right fifth toe since December 2023 now presenting with worsening discoloration of the right fifth toe stump and surrounding redness. On today's evaluation that is 06/10/2024, the patient continues to be afebrile, the patient is on room air and breathing comfortably, the Pt denies having any chest pain or cough, the patient denies having any abdominal pain no vomiting or any diarrhea and is currently controlled with the pain medication. Patient white count is 10.31, creatinine 0.9 cultures are pending Objective - Vital Signs Vital signs: Vital Signs Temp 97.8 F 06/10/24 07:24 Pulse 72 06/10/24 07:24 Resp 18 06/10/24 07:24 BP 149/71 06/10/24 07:24 Pulse Ox 97 06/10/24 07:24 FiO2 Intake & Output 06/09/24 06/10/24 06/10/24 18:59 06:59 18:59 Intake Total 1650 Balance 1650 Weight 86.183 kg Intake: Oral 1650 Other: Voiding Method Toilet # Voids 1 5 # Bowel Movements 2 - Exam GENERAL DESCRIPTION: Middle-age male lying in bed in no distress RESPIRATORY SYSTEM: Unlabored breathing , decreased breath sounds at bases HEART: S1 S2 regular rate and rhythm , ABDOMEN: Soft , no tenderness EXTREMITIES: Right foot is currently dressed - Labs CBC & Chem 7: 06/10/24 05:39 06/10/24 05:39 Labs: Abnormal Lab Results - Last 24 Hours (Table) 06/09/24 06/09/24 06/10/24 Range/Units 16:48 20:41 05:39 WBC 10.31 H (4.50-10.00) X 10*3/uL RBC 3.80 L (4.40-5.60) X 10*6/uL Hgb 10.8 L (13.0-17.0) g/dL Hct 33.6 L (39.6-50.0) % RDW 15.8 H (11.5-14.5) % MPV 9.4 L (9.5-12.2) FL Immature Gran # 0.05 H (0.00-0.04) X 10*3/uL Monocytes # 1.16 H (0.20-1.00) X 10*3/uL Glucose (70-110) mg/dL POC Glucose (mg/dL) 140 H 125 H (70-110) mg/dL Total Protein (6.2-8.2) g/dL Albumin (3.8-4.9) g/dL 06/10/24 Range/Units 05:39 WBC (4.50-10.00) X 10*3/uL RBC (4.40-5.60) X 10*6/uL Hgb (13.0-17.0) g/dL Hct (39.6-50.0) % RDW (11.5-14.5) % MPV (9.5-12.2) FL Immature Gran # (0.00-0.04) X 10*3/uL Monocytes # (0.20-1.00) X 10*3/uL Glucose 120 H (70-110) mg/dL POC Glucose (mg/dL) (70-110) mg/dL Total Protein 6.0 L (6.2-8.2) g/dL Albumin 3.7 L (3.8-4.9) g/dL Microbiology - Last 24 Hours (Table) 06/09/24 12:30 Gram Stain - Preliminary Foot - Right Wound Culture - Preliminary Assessment and Plan (1) Gangrene of toe of right foot Current Visit: Yes Status: Acute Code(s): I96 - GANGRENE, NOT ELSEWHERE CLASSIFIED SNOMED Code(s): 91093176046346706 (2) Diabetic infection of right foot Current Visit: Yes Status: Acute Code(s): E11.628 - TYPE 2 DIABETES MELLITUS WITH OTHER SKIN COMPLICATIONS; L08.9 - LOCAL INFECTION OF THE SKIN AND SUBCUTANEOUS TISSUE, UNSP SNOMED Code(s): 310170338 (3) Penicillin allergy Current Visit: Yes Status: Acute Code(s): Z88.0 - ALLERGY STATUS TO PENICILLIN SNOMED Code(s): 70672328 (4) Osteomyelitis Current Visit: Yes Status: Acute Code(s): M86.9 - OSTEOMYELITIS, UNSPECIFIED SNOMED Code(s): 81393829 Plan: 1patient presented to hospital with right fifth toe discoloration with surrounding swelling redness abnormal x-ray suggestive of osteomyelitis in this patient with underlying history of diabetes mellitus and diabetic foot infection we need to cover for the polymicrobial chago associated with such condition 2-penicillin allergy that will limit the number of antibiotics safe to use 3-local culture have been obtained which are currently pending 4-patient will be treated with vancomycin and cefepime while waiting for the cultures to be finalized Dictation was produced using [employer] dictation software. please excuse any grammatical, word or spelling errors. Time with Patient: Less than 30
[2024-06-10] MEDS: CEFEPIME 2 GM in SODIUM CHLORIDE 0.9% 100 ML IVPB SCH (15:18)
[2024-06-11 09:24] LABS: African American GFR (CKD) >90 (>60 ml/min/1.73 sqM); Non-African American GFR(CKD) >90 (>60 ml/min/1.73 sqM)
[2024-06-11] MEDS: VANCOMYCIN TROUGH DUE 1 EACH MISC MISCELLANE ONE (09:37)
[2024-06-11 11:43] LABS: Glucose,Whole Blood 218 mg/dL (70-110)
--- NOTE | 2024-06-11 13:08 | P.PN ---
Subjective Progress Note Date: 06/11/24 Principal diagnosis: right 5th toe gangrene Patient seen and examined. Eager to get toe amputated. No other complaints. States leg feels good. Objective - Vital Signs Vital signs: Vital Signs Temp 98.2 F 06/11/24 07:06 Pulse 74 06/11/24 07:06 Resp 17 06/11/24 07:06 BP 125/77 06/11/24 07:06 Pulse Ox 95 06/11/24 07:06 FiO2 Intake & Output 06/10/24 06/11/24 06/11/24 18:59 06:59 18:59 Other: Voiding Method Toilet # Voids 3 4 # Bowel Movements 0 - Exam General appearance: The patient is alert, oriented, appears in no acute distress. HET: Head is normocephalic and atraumatic. Pupils are equal and reactive. Neck: Supple. Heart: Regular. Lungs: Equal expansion, normal respiratory effort. Abdomen: Soft, nontender, nondistended. Extremities: Right lower extremity swelling, lateral side of dorsal aspect of foot surrounding fifth toe and along lower oh with erythema. Fifth toe gangrenous wound with no drainage. Foot warm to the touch with good capillary refill, sensorimotor intact. Neurological: No focal deficits. Strength and sensation are grossly intact. - Labs CBC & Chem 7: 06/10/24 05:39 06/11/24 08:31 Labs: Abnormal Lab Results - Last 24 Hours (Table) 06/11/24 Range/Units 11:41 POC Glucose (mg/dL) 218 H (70-110) mg/dL Microbiology - Last 24 Hours (Table) 06/09/24 09:52 Blood Culture - Preliminary Blood 06/09/24 12:30 Gram Stain - Preliminary Foot - Right Wound Culture - Preliminary Assessment and Plan Assessment: 1. Right fifth toe diabetic wound infection 2. Osteomyelitis right fifth toe 3. Peripheral arterial disease with bilateral lower extremity revascularization 4. Coronary artery disease with cardiac stents 5. Diabetes mellitus 6. Hyperlipidemia and hypertension 7. Thyroid disorder 8. History of CML 9. Former smoker Plan: 1. OR Thursday for 5th toe amputation 2. Discussed with the patient and he is agreeable to surgery.
--- NOTE | 2024-06-11 15:52 | P.PN ---
Subjective Progress Note Date: 06/11/24 Principal diagnosis: Reason for follow-up is right fifth toe diabetic foot infec tion/gangrene/osteomyelitis Patient is a 58-year-old male with a past medical history significant for diabetes mellitus hypertension hyperlipidemia osteomyelitis has been dealing with wound to the right fifth toe since December 2023 now presenting with worsening discoloration of the right fifth toe stump and surrounding redness. On today's evaluation that is 06/11/2024, patient did not have any fever and denies any chills, patient is breathing comfortably on room air, patient with no chest pain or cough patient did not have any abdominal pain nausea vomiting or any loose stools pain to the right fifth toe is currently controlled swelling has decreased. Patient white count is 10.31, creatinine 0.79 local culture growing Serratia streptococci likely and Prevotella Objective - Vital Signs Vital signs: Vital Signs Temp 98.1 F 06/11/24 13:58 Pulse 65 06/11/24 13:58 Resp 18 06/11/24 13:58 BP 132/69 06/11/24 13:58 Pulse Ox 97 06/11/24 13:58 FiO2 Intake & Output 06/10/24 06/11/24 06/11/24 18:59 06:59 18:59 Other: Voiding Method Toilet # Voids 3 4 # Bowel Movements 0 - Exam GENERAL DESCRIPTION: Middle-age male lying in bed in no distress RESPIRATORY SYSTEM: Unlabored breathing , decreased breath sounds at bases HEART: S1 S2 regular rate and rhythm , ABDOMEN: Soft , no tenderness EXTREMITIES: Right fifth toe remains to be necrotic surrounding redness has decreased - Labs CBC & Chem 7: 06/10/24 05:39 06/11/24 08:31 Labs: Abnormal Lab Results - Last 24 Hours (Table) 06/11/24 Range/Units 11:41 POC Glucose (mg/dL) 218 H (70-110) mg/dL Microbiology - Last 24 Hours (Table) 06/09/24 12:30 Anaerobic Culture - Preliminary Foot - Right Prevotella bivia Prevotella disiens 06/09/24 12:30 Gram Stain - Preliminary Foot - Right Wound Culture - Preliminary Serratia liquefaciens Strep agalactiae - (group b) 06/09/24 09:52 Blood Culture - Preliminary Blood Assessment and Plan (1) Gangrene of toe of right foot Current Visit: Yes Status: Acute Code(s): I96 - GANGRENE, NOT ELSEWHERE CLASSIFIED SNOMED Code(s): 00614899231932660 (2) Diabetic infection of right foot Current Visit: Yes Status: Acute Code(s): E11.628 - TYPE 2 DIABETES MELLITUS WITH OTHER SKIN COMPLICATIONS; L08.9 - LOCAL INFECTION OF THE SKIN AND SUBCUTANEOUS TISSUE, UNSP SNOMED Code(s): 630286964 (3) Penicillin allergy Current Visit: Yes Status: Acute Code(s): Z88.0 - ALLERGY STATUS TO PENICILLIN SNOMED Code(s): 57636135 (4) Osteomyelitis Current Visit: Yes Status: Acute Code(s): M86.9 - OSTEOMYELITIS, UNSPECIFIED SNOMED Code(s): 44741528 Plan: 1patient presented to hospital with right fifth toe discoloration with surrounding swelling redness abnormal x-ray suggestive of osteomyelitis in this patient with underlying history of diabetes mellitus and diabetic foot infection we need to cover for the polymicrobial chago associated with such condition 2-penicillin allergy that will limit the number of antibiotics safe to use 3-local culture currently growing Serratia and strep and Prevotella 4-patient will be treated with cefepime will discontinue vancomycin as no MRSA and add Flagyl to cover for the anaerobes Dictation was produced using [employer] dictation software. please excuse any grammatical, word or spelling errors. Time with Patient: Less than 30
--- NOTE | 2024-06-11 15:59 | P.PN ---
Subjective Progress Note Date: 06/11/24 patient is a 58-year-old gentleman with past medical history significant for cardiomyopathy, peripheral artery disease, hypertension open to the ER for right foot wound. Patient stated that he has been dealing with his right foot wound since December and normally follows up outpatient with ID as well as vascular surgery. Patient noted that over the last 1 week the redness over his left foot had increased. Patient also complaining of more pain in his foot. Patient denies any fever or chills. There is no complaint of chest pain or shortness of breath. Patient denies any orthopnea or PND. There is no complaint of swelling of feet. Initial lab work done in the ER showed WBC 11.4, hemoglobin 12.2, platelet count 379, sodium 138, potassium 5, BUN 16, creatinine 0.95, glucose 155, AST 47, ALT 37, CRP 2.4 X-ray foot done showed osteomyelitis of the fifth digit proximal and distal phalanx Patient admitted to internal medicine service 06/10. Patient seen and examined. Denies any foot pain. Denies any fever or chills. Vital signs stable 06/11/2024 Patient is evaluated today in follow-up in the medical floor. He is resting in bed comfortably. He continues on IV vancomycin and IV cefepime with wound cultures pending of the right fifth toe. He will be going for amputation of the right great toe on Thursday. REVIEW OF SYSTEMS: CONSTITUTIONAL: No fever, no malaise,. CARDIOVASCULAR: No chest pain, no palpitations, no syncope. PULMONARY: No shortness of breath, no cough, GASTROINTESTINAL: No diarrhea, no nausea, no vomiting, no abdominal pain. NEUROLOGICAL: No headaches, no weakness, PHYSICAL EXAMINATION: GENERAL: The patient is alert and oriented x3, not in any acute distress. Well developed, well nourished. HEENT: Pupils are round and equally reacting to light. EOMI. No scleral icterus. No conjunctival pallor. Normocephalic, atraumatic. No pharyngeal erythema. No thyromegaly. CARDIOVASCULAR: S1 and S2 present. No murmurs, rubs, or gallops. PULMONARY: Chest is clear to auscultation, no wheezing or crackles. ABDOMEN: Soft, nontender, nondistended, normoactive bowel sounds. No palpable organomegaly. MUSCULOSKELETAL: No joint swelling or deformity. EXTREMITIES: No cyanosis, clubbing, or pedal edema. NEUROLOGICAL: Gross neurological examination did not reveal any focal deficits. SKIN: Right fifth toe discoloration with black eschar, erythema surrounding fore foot area Assessment and plan Right fifth toe osteomyelitis Right foot cellulitis Ischemic cardiomyopathy, 25 to 30% Peripheral arterial disease, s/p percutaneous atherectomy of the right SFA & angioplasty of the right tibioperoneal trunk, 05/13/2024 Hypertension Hyperlipidemia Diabetes Monitor vital signs Monitor CBC Monitor CMP Continue telemetry monitoring Follow-up on blood cultures Follow-up on wound culture continue cefepime and vancomycin Continue aspirin, Lipitor Continue Lasix Continue lisinopril and Aldactone ID following Vascular surgery following, planning surgery on Thursday Labs and medication were reviewed.. Continue same treatment. Continue with symptomatic treatment. Resume home medication. Monitor labs and vitals. DVT and GI prophylaxis. Further recommendations as per clinical course of the patient Dictation was produced using [employer] dictation software. please excuse any grammatical, word or spelling errors. The impression and plan of care has been dictated by Karla Merrill, Nurse Practitioner as directed. Dr. Damion MD I have performed a history and physical examination and medical decision making of this patient, discussed the same with the dictator, and agree with the dictators assessment and plan as written, documented as a scribe. Based on total visit time, I have performed more than 50% of this visit. Objective - Vital Signs Vital signs: Vital Signs Temp 98.1 F 06/11/24 13:58 Pulse 65 06/11/24 13:58 Resp 18 06/11/24 13:58 BP 132/69 06/11/24 13:58 Pulse Ox 97 06/11/24 13:58 FiO2 Intake & Output 06/10/24 06/11/24 06/11/24 18:59 06:59 18:59 Other: Voiding Method Toilet # Voids 3 4 # Bowel Movements 0 - Labs CBC & Chem 7: 06/10/24 05:39 06/11/24 08:31 Labs: Abnormal Lab Results - Last 24 Hours (Table) 06/11/24 Range/Units 11:41 POC Glucose (mg/dL) 218 H (70-110) mg/dL Microbiology - Last 24 Hours (Table) 06/09/24 12:30 Anaerobic Culture - Preliminary Foot - Right Prevotella bivia Prevotella disiens 06/09/24 12:30 Gram Stain - Preliminary Foot - Right Wound Culture - Preliminary Serratia liquefaciens Strep agalactiae - (group b) 06/09/24 09:52 Blood Culture - Preliminary Blood Assessment and Plan Time with Patient: Less than 30
[2024-06-11 16:37] LABS: Glucose,Whole Blood 121 mg/dL (70-110)
[2024-06-11] MEDS: metroNIDAZOLE 500 MG TAB PO SCH (16:52)
[2024-06-11 20:51] LABS: Glucose,Whole Blood 141 mg/dL (70-110)
[2024-06-12 06:09] LABS: Glucose,Whole Blood 137 mg/dL (70-110)
[2024-06-12 06:38] LABS: African American GFR (CKD) >90 (>60 ml/min/1.73 sqM); Non-African American GFR(CKD) >90 (>60 ml/min/1.73 sqM)
[2024-06-12 11:46] LABS: Glucose,Whole Blood 131 mg/dL (70-110)
--- NOTE | 2024-06-12 13:34 | P.PN ---
Subjective Progress Note Date: 06/12/24 patient is a 58-year-old gentleman with past medical history significant for cardiomyopathy, peripheral artery disease, hypertension open to the ER for right foot wound. Patient stated that he has been dealing with his right foot wound since December and normally follows up outpatient with ID as well as vascular surgery. Patient noted that over the last 1 week the redness over his left foot had increased. Patient also complaining of more pain in his foot. Patient denies any fever or chills. There is no complaint of chest pain or shortness of breath. Patient denies any orthopnea or PND. There is no complaint of swelling of feet. Initial lab work done in the ER showed WBC 11.4, hemoglobin 12.2, platelet count 379, sodium 138, potassium 5, BUN 16, creatinine 0.95, glucose 155, AST 47, ALT 37, CRP 2.4 X-ray foot done showed osteomyelitis of the fifth digit proximal and distal phalanx Patient admitted to internal medicine service 06/10. Patient seen and examined. Denies any foot pain. Denies any fever or chills. Vital signs stable 06/11/2024 Patient is evaluated today in follow-up in the medical floor. He is resting in bed comfortably. He continues on IV vancomycin and IV cefepime with wound cultures pending of the right fifth toe. He will be going for amputation of the right great toe on Thursday. 06/12/2024 Patient notes a resting bed comfortably. He has no acute complaints at this time. He states that his pain is being managed currently with his pain regimen. His wound cares are positive for group B strep and Serratia. Anaerobes are positive also he continues on IV cefepime and oral Flagyl was added. Patient will be going for amputation of the right great toe tomorrow. REVIEW OF SYSTEMS: CONSTITUTIONAL: No fever, no malaise,. CARDIOVASCULAR: No chest pain, no palpitations, no syncope. PULMONARY: No shortness of breath, no cough, GASTROINTESTINAL: No diarrhea, no nausea, no vomiting, no abdominal pain. NEUROLOGICAL: No headaches, no weakness, PHYSICAL EXAMINATION: GENERAL: The patient is alert and oriented x3, not in any acute distress. Well developed, well nourished. HEENT: Pupils are round and equally reacting to light. EOMI. No scleral icterus. No conjunctival pallor. Normocephalic, atraumatic. No pharyngeal erythema. No thyromegaly. CARDIOVASCULAR: S1 and S2 present. No murmurs, rubs, or gallops. PULMONARY: Chest is clear to auscultation, no wheezing or crackles. ABDOMEN: Soft, nontender, nondistended, normoactive bowel sounds. No palpable organomegaly. MUSCULOSKELETAL: No joint swelling or deformity. EXTREMITIES: No cyanosis, clubbing, or pedal edema. NEUROLOGICAL: Gross neurological examination did not reveal any focal deficits. SKIN: Right fifth toe discoloration with black eschar, erythema surrounding forefoot area Assessment and plan Right fifth toe osteomyelitis Right foot cellulitis Ischemic cardiomyopathy, 25 to 30% Peripheral arterial disease, s/p percutaneous atherectomy of the right SFA & angioplasty of the right tibioperoneal trunk, 05/13/2024 Hypertension Hyperlipidemia Diabetes Monitor vital signs Monitor CBC Monitor CMP Continue telemetry monitoring Follow-up on blood cultures Follow-up on wound culture continue cefepime and oral Flagyl Continue aspirin, Lipitor Continue Lasix Continue lisinopril and Aldactone ID following Vascular surgery following, planning right great toe amputation on Thursday Labs and medication were reviewed.. Continue same treatment. Continue with symptomatic treatment. Resume home medication. Monitor labs and vitals. DVT and GI prophylaxis. Further recommendations as per clinical course of the patient Dictation was produced using [employer] dictation software. please excuse any grammatical, word or spelling errors. The impression and plan of care has been dictated by Karla Merrill Nurse Practitioner as directed. Dr. Damion MD I have performed a history and physical examination and medical decision making of this patient, discussed the same with the dictator, and agree with the dictators assessment and plan as written, documented as a scribe. Based on total visit time, I have performed more than 50% of this visit. Objective - Vital Signs Vital signs: Vital Signs Temp 97.8 F 06/12/24 06:51 Pulse 70 06/12/24 06:51 Resp 17 06/12/24 06:51 BP 121/72 06/12/24 06:51 Pulse Ox 98 06/12/24 06:51 FiO2 Intake & Output 06/11/24 06/12/24 06/12/24 18:59 06:59 18:59 Other: Voiding Method Toilet # Voids 4 2 # Bowel Movements 2 - Labs CBC & Chem 7: 06/10/24 05:39 06/12/24 06:04 Labs: Abnormal Lab Results - Last 24 Hours (Table) 06/11/24 06/11/24 06/12/24 Range/Units 16:35 20:50 06:04 POC Glucose (mg/dL) 121 H 141 H 137 H (70-110) mg/dL 06/12/24 Range/Units 11:45 POC Glucose (mg/dL) 131 H (70-110) mg/dL Microbiology - Last 24 Hours (Table) 06/09/24 09:52 Blood Culture - Preliminary Blood 06/09/24 12:30 Anaerobic Culture - Preliminary Foot - Right Prevotella bivia Prevotella disiens 06/09/24 12:30 Gram Stain - Preliminary Foot - Right Wound Culture - Preliminary Serratia liquefaciens Strep agalactiae - (group b) Assessment and Plan Time with Patient: Less than 30
--- NOTE | 2024-06-12 16:11 | P.PN ---
Subjective Progress Note Date: 06/12/24 Principal diagnosis: Reason for follow-up is right fifth toe diabetic foot infec tion/gangrene/osteomyelitis Patient is a 58-year-old male with a past medical history significant for diabetes mellitus hypertension hyperlipidemia osteomyelitis has been dealing with wound to the right fifth toe since December 2023 now presenting with worsening discoloration of the right fifth toe stump and surrounding redness. On today's evaluation that is 06/12/2024, Patient is afebrile patient is currently on room air and denies having any shortness of breath, the patient denies any chest pain or cough, the patient denies any nausea vomiting did not have any abdominal pain and no diarrhea denies any worsening pain to the right fifth toe area. Patient did have a creatinine 0.85 no CBC was done today Objective - Vital Signs Vital signs: Vital Signs Temp 98.0 F 06/12/24 14:00 Pulse 79 06/12/24 14:00 Resp 18 06/12/24 14:00 BP 114/54 06/12/24 14:00 Pulse Ox 98 06/12/24 14:00 FiO2 Intake & Output 06/11/24 06/12/24 06/12/24 18:59 06:59 18:59 Other: Voiding Method Toilet # Voids 4 2 # Bowel Movements 2 - Exam GENERAL DESCRIPTION: Middle-age male lying in bed in no distress RESPIRATORY SYSTEM: Unlabored breathing , decreased breath sounds at bases HEART: S1 S2 regular rate and rhythm , ABDOMEN: Soft , no tenderness EXTREMITIES: Right fifth toe remains to be necrotic surrounding redness has decreased - Labs CBC & Chem 7: 06/10/24 05:39 06/12/24 06:04 Labs: Abnormal Lab Results - Last 24 Hours (Table) 06/11/24 06/11/24 06/12/24 Range/Units 16:35 20:50 06:04 POC Glucose (mg/dL) 121 H 141 H 137 H (70-110) mg/dL 06/12/24 Range/Units 11:45 POC Glucose (mg/dL) 131 H (70-110) mg/dL Microbiology - Last 24 Hours (Table) 06/09/24 09:52 Blood Culture - Preliminary Blood 06/09/24 12:30 Anaerobic Culture - Preliminary Foot - Right Prevotella bivia Prevotella disiens 06/09/24 12:30 Gram Stain - Preliminary Foot - Right Wound Culture - Preliminary Serratia liquefaciens Strep agalactiae - (group b) Assessment and Plan (1) Gangrene of toe of right foot Current Visit: Yes Status: Acute Code(s): I96 - GANGRENE, NOT ELSEWHERE CLASSIFIED SNOMED Code(s): 24514791253205636 (2) Diabetic infection of right foot Current Visit: Yes Status: Acute Code(s): E11.628 - TYPE 2 DIABETES MELLITUS WITH OTHER SKIN COMPLICATIONS; L08.9 - LOCAL INFECTION OF THE SKIN AND SUBCUTANEOUS TISSUE, UNSP SNOMED Code(s): 116311320 (3) Penicillin allergy Current Visit: Yes Status: Acute Code(s): Z88.0 - ALLERGY STATUS TO PENICILLIN SNOMED Code(s): 47020838 (4) Osteomyelitis Current Visit: Yes Status: Acute Code(s): M86.9 - OSTEOMYELITIS, UNSPECIFIED SNOMED Code(s): 76013977 Plan: 1patient presented to hospital with right fifth toe discoloration with surrounding swelling redness abnormal x-ray suggestive of osteomyelitis in this patient with underlying history of diabetes mellitus and diabetic foot infection we need to cover for the polymicrobial chago associated with such condition 2-penicillin allergy that will limit the number of antibiotics safe to use 3-local culture currently growing Serratia and strep and Prevotella 4-patient currently being treated cefepime and Flagyl for possible amputation tomorrow Dictation was produced using [employer] dictation software. please excuse any grammatical, word or spelling errors. Time with Patient: Less than 30
[2024-06-12 16:45] LABS: Glucose,Whole Blood 116 mg/dL (70-110)
[2024-06-12 20:49] LABS: Glucose,Whole Blood 165 mg/dL (70-110)
[2024-06-13 06:08] LABS: Glucose,Whole Blood 132 mg/dL (70-110)
[2024-06-13] MEDS: IV FLUID CONTINUATION 1,000 ML IV ONE ×3 (08:52→09:23)
[2024-06-13 09:06] LABS: Glucose,Whole Blood 136 mg/dL (70-110)
[2024-06-13 09:23] LABS: Basophils # (A) 0.08 X 10*3/uL (0.00-0.10); Basophils % (A) 0.8 %; Eosinophils # (A) 0.27 X 10*3/uL (0.04-0.35); Eosinophils % (A) 2.6 %; HCT 35.1 % (39.6-50.0); HGB 11.2 g/dL (13.0-17.0); Lymphocytes # (A) 4.19 X 10*3/uL (0.90-5.00); Lymphocytes % (A) 40.1 %; MCH 28.3 pg (27.0-32.0); MCHC 31.9 g/dL (32.0-37.0); MCV 88.6 FL (80.0-97.0); Monocytes # (A) 1.27 X 10*3/uL (0.20-1.00); Monocytes % (A) 12.1 %; NRBC Per 100 WBC 0 X 10*3/uL (0.00-0.01); Neutrophils # (A) 4.58 X 10*3/uL (1.80-7.70); Neutrophils % (A) 43.7 %; Platelet Count 417 X 10*3/uL (140-440); RBC 3.96 X 10*6/uL (4.40-5.60); RDW 15.6 % (11.5-14.5); WBC 10.46 X 10*3/uL (4.50-10.00)
[2024-06-13 09:31] LABS: Blood Urea Nitrogen 15.7 mg/dL (9.0-27.0); Chloride 103 mmol/L (96-109); Glucose 140 mg/dL (70-110); Potassium 4.3 mmol/L (3.5-5.5); Sodium 139 mmol/L (135-145)
[2024-06-13] MEDS: BACITRACIN ZINC 500 UNIT/GM OINT 28.4 GM TUBE TOPICAL ONE (09:58)
--- NOTE | 2024-06-13 10:09 | P.OP ---
Date of Procedure: 06/13/24 Preoperative Diagnosis: Right fifth toe gangrene Postoperative Diagnosis: Same Procedure(s) Performed: Right fifth toe ray amputation Anesthesia: HELGA Surgeon: Alber Fall Estimated Blood Loss (ml): 5 Pathology: other (Fifth toe, deep wound culture) Condition: stable Disposition: PACU Indications for Procedure: 58-year-old gentleman with history of peripheral vascular disease, diabetes has been treated at the hospital for ischemic disease and gangrene of the fifth toe with what appears to be osteomyelitis. He does have a history of peripheral arterial disease with multiple revascularizations in the past and presents today for amputation of his fifth toe. Description of Procedure: After written and informed consent was obtained for the patient and all risk, benefits and complications were described the patient was brought to the operative suite and laid in the supine position. The area of the right foot was prepped and draped in usual sterile fashion. Timeout was performed normal fashion antibiotics were administered prior to incision. A racquet incision was then performed around the fifth toe and dissection was carried down to the metatarsal. Dissection was then carried around circumferentially and the toe was removed at the joint. It was sent off for pathology and deep cultures were obtained at that time. Utilizing a rongeur the fifth metatarsal bone was taken back. Hemostasis was then ensured with electrocautery. The area was copiously washed out with antibiotic solution. The incision was then closed with 2-0 nylon suture in a vertical mattress fashion. The area was then cleansed and dressings were placed. The patient tolerated procedure well was sent to PACU for recovery.
[2024-06-13 11:26] LABS: Glucose,Whole Blood 141 mg/dL (70-110)
[2024-06-13 16:29] LABS: Glucose,Whole Blood 198 mg/dL (70-110)
--- NOTE | 2024-06-13 17:26 | P.PN ---
Subjective Progress Note Date: 06/13/24 Principal diagnosis: Reason for follow-up is right fifth toe diabetic foot infec tion/gangrene/osteomyelitis Patient is a 58-year-old male with a past medical history significant for diabetes mellitus hypertension hyperlipidemia osteomyelitis has been dealing with wound to the right fifth toe since December 2023 now presenting with worsening discoloration of the right fifth toe stump and surrounding redness. Patient is status post right fifth toe amputation completed on 06/13/2024. On today's evaluation that is 06/13/2024, patient has been afebrile, patient is breathing comfortably and is currently on room air, patient denies having any significant cough no chest pain, patient denies nausea vomiting or diarrhea and no abdominal pain, pain to the right foot is currently controlled. Patient did have white count of 10.46, creatinine is 1.0 Objective - Vital Signs Vital signs: Vital Signs Temp 98.1 F 06/13/24 11:05 Pulse 66 06/13/24 12:35 Resp 16 06/13/24 11:32 BP 132/73 06/13/24 12:35 Pulse Ox 96 06/13/24 12:35 FiO2 Intake & Output 06/12/24 06/13/24 06/13/24 18:59 06:59 18:59 Intake Total 450 Output Total 2 Balance 448 Intake: IV 450 Output: Estimated Blood Loss 2 Other: Voiding Method Toilet # Voids 4 2 # Bowel Movements 1 - Exam GENERAL DESCRIPTION: Middle-age male lying in bed in no distress RESPIRATORY SYSTEM: Unlabored breathing , decreased breath sounds at bases HEART: S1 S2 regular rate and rhythm , ABDOMEN: Soft , no tenderness EXTREMITIES: Right foot is currently dressed no drainage - Labs CBC & Chem 7: 06/13/24 03:49 06/13/24 03:49 Labs: Abnormal Lab Results - Last 24 Hours (Table) 06/12/24 06/12/24 06/13/24 Range/Units 16:43 20:48 03:49 WBC 10.46 H (4.50-10.00) X 10*3/uL RBC 3.96 L (4.40-5.60) X 10*6/uL Hgb 11.2 L (13.0-17.0) g/dL Hct 35.1 L (39.6-50.0) % MCHC 31.9 L (32.0-37.0) g/dL RDW 15.6 H (11.5-14.5) % MPV 9.0 L (9.5-12.2) FL Immature Gran # 0.07 H (0.00-0.04) X 10*3/uL Monocytes # 1.27 H (0.20-1.00) X 10*3/uL Glucose (70-110) mg/dL POC Glucose (mg/dL) 116 H 165 H (70-110) mg/dL 06/13/24 06/13/24 06/13/24 Range/Units 03:49 06:06 09:04 WBC (4.50-10.00) X 10*3/uL RBC (4.40-5.60) X 10*6/uL Hgb (13.0-17.0) g/dL Hct (39.6-50.0) % MCHC (32.0-37.0) g/dL RDW (11.5-14.5) % MPV (9.5-12.2) FL Immature Gran # (0.00-0.04) X 10*3/uL Monocytes # (0.20-1.00) X 10*3/uL Glucose 140 H (70-110) mg/dL POC Glucose (mg/dL) 132 H 136 H (70-110) mg/dL 06/13/24 Range/Units 11:24 WBC (4.50-10.00) X 10*3/uL RBC (4.40-5.60) X 10*6/uL Hgb (13.0-17.0) g/dL Hct (39.6-50.0) % MCHC (32.0-37.0) g/dL RDW (11.5-14.5) % MPV (9.5-12.2) FL Immature Gran # (0.00-0.04) X 10*3/uL Monocytes # (0.20-1.00) X 10*3/uL Glucose (70-110) mg/dL POC Glucose (mg/dL) 141 H (70-110) mg/dL Microbiology - Last 24 Hours (Table) 06/09/24 12:30 Anaerobic Culture - Final Foot - Right Prevotella bivia Prevotella disiens 06/09/24 09:52 Blood Culture - Preliminary Blood Assessment and Plan (1) Gangrene of toe of right foot Current Visit: Yes Status: Acute Code(s): I96 - GANGRENE, NOT ELSEWHERE CLASSIFIED SNOMED Code(s): 39636705173597325 (2) Diabetic infection of right foot Current Visit: Yes Status: Acute Code(s): E11.628 - TYPE 2 DIABETES MELLITUS WITH OTHER SKIN COMPLICATIONS; L08.9 - LOCAL INFECTION OF THE SKIN AND SUBCUTANEOUS TISSUE, UNSP SNOMED Code(s): 605669815 (3) Penicillin allergy Current Visit: Yes Status: Acute Code(s): Z88.0 - ALLERGY STATUS TO PENICILLIN SNOMED Code(s): 19607544 (4) Osteomyelitis Current Visit: Yes Status: Acute Code(s): M86.9 - OSTEOMYELITIS, UNSPECIFIED SNOMED Code(s): 10526470 Plan: 1patient presented to hospital with right fifth toe discoloration with surrounding swelling redness abnormal x-ray suggestive of osteomyelitis in this patient with underlying history of diabetes mellitus and diabetic foot infection we need to cover for the polymicrobial chago associated with such condition 2-penicillin allergy that will limit the number of antibiotics safe to use 3-local culture currently growing Serratia and strep and Prevotella 4-patient is status post right fifth toe ray amputation will evaluate the wound base tomorrow to determine discharge but for now continue with cefepime and Flagyl Dictation was produced using [employer] dictation software. please excuse any grammatical, word or spelling errors. Time with Patient: Less than 30
[2024-06-13] MEDS: KETOROLAC 15 MG/ML 1 ML VIAL IVP STA (20:04)
[2024-06-13 20:29] LABS: Glucose,Whole Blood 119 mg/dL (70-110)
[2024-06-13] MEDS: HYDROcodone/APAP 7.5-325MG 1 EACH TAB PO PRN (21:11)
--- NOTE | 2024-06-13 21:20 | PN ---
PROGRESS NOTE DATE OF SERVICE: 06/13/2024 SUBJECTIVE: This 58-year-old gentleman is admitted with right fifth toe osteomyelitis, underwent right fifth toe amputation. Today, no chest pain; no palpitation. PHYSICAL EXAMINATION: VITAL SIGNS: Pulse is 66, blood pressure 132/73. CHEST: Clear to auscultation. CARDIOVASCULAR: S1 and S2. ABDOMEN: Soft. EXTREMITIES: Status post amputation. LABORATORY DATA: Reviewed. Culture showed multiple Prevotella and Serratia. ASSESSMENT: 1. Right fifth toe osteomyelitis with Prevotella and Serratia and Streptococcus agalactiae, status post fifth toe amputation. 2. Right foot cellulitis. 3. Ischemic cardiomyopathy, 25% to 30%. 4. History of peripheral vascular disease. 5. Multiple medical issues. RECOMMENDATIONS: Recommended to continue current management; continue symptomatic treatment. Continue with antibiotics. Closely follow with the Vascular Surgery. Guarded prognosis. Further recommendations to follow. MMODL / IJN: [id number] /
[2024-06-14 06:25] LABS: Glucose,Whole Blood 180 mg/dL (70-110)
[2024-06-14 09:07] LABS: ALT 38 U/L (10-49); AST 38 U/L (14-35); Albumin 3.6 g/dL (3.8-4.9); Albumin/Globulin Ratio 1.57 Ratio (1.60-3.17); Alkaline Phosphatase 77 U/L (41-126); BUN/Creat Ratio 16.27 Ratio (12.00-20.00); Blood Urea Nitrogen 17.9 mg/dL (9.0-27.0); Calcium 8.7 mg/dL (8.7-10.3); Carbon Dioxide 25.5 mmol/L (21.6-31.8); Chloride 105 mmol/L (96-109); Globulin 2.3 g/dL (1.6-3.3); Glucose 135 mg/dL (70-110); Potassium 4.4 mmol/L (3.5-5.5); Sodium 140 mmol/L (135-145); Total Bilirubin <0.2 mg/dL (0.3-1.2); Total Protein 5.9 g/dL (6.2-8.2)
[2024-06-14 09:31] LABS: HCT 31.9 % (39.6-50.0); HGB 10.3 g/dL (13.0-17.0); MCH 28.6 pg (27.0-32.0); MCHC 32.3 g/dL (32.0-37.0); MCV 88.6 FL (80.0-97.0); Mean Platelet Volume 9.3 FL (9.5-12.2); NRBC Per 100 WBC 0 X 10*3/uL (0.00-0.01); Platelet Count 425 X 10*3/uL (140-440); RDW 15.9 % (11.5-14.5); WBC 12.53 X 10*3/uL (4.50-10.00)
[2024-06-14 10:00] LABS: Eosinophils # (M) 0.38 X 10*3/uL (0.04-0.35); Lymphocytes # (M) 5.51 X 10*3/uL (0.90-5.00); Monocytes # (M) 0.75 X 10*3/uL (0.20-1.00); Neutrophils # (M) 5.39 X 10*3/uL (1.80-7.70); Neutrophils % (M) 43 %; Nucleated Red Blood Cells 1 /100 WBCS
--- NOTE | 2024-06-14 10:59 | P.PN ---
Subjective Progress Note Date: 06/14/24 Principal diagnosis: Osteomyelitis, chronic wound Patient is seen and examined today as a follow-up. He is postop day #1 for right fifth toe amputation. Deep tissue cultures are pending. Patient states pain is well-managed. He remains on IV antibiotics followed by infectious disease. Patient is afebrile. Objective - Vital Signs Vital signs: Vital Signs Temp 98.5 F 06/14/24 06:51 Pulse 77 06/14/24 06:51 Resp 18 06/14/24 06:51 BP 149/81 06/14/24 06:51 Pulse Ox 97 06/14/24 06:51 FiO2 Intake & Output 06/13/24 06/14/24 06/14/24 18:59 06:59 18:59 Intake Total 650 Output Total 2 Balance 648 Intake: IV 450 Oral 200 Output: Estimated Blood Loss 2 Other: Voiding Method Toilet Toilet # Voids 1 2 - Exam General appearance: The patient is alert, oriented, appears in no acute distr ess. HET: Head is normocephalic and atraumatic. Neck: Supple. Heart: Regular. Lungs: Equal expansion, normal respiratory effort. Abdomen: Soft, nondistended. Extremities: Right foot fifth toe amputation site well-approximated with sutures, with medial aspect open. No active bleeding, no drainage.. Neurological: No focal deficits. Strength and sensation are grossly intact. - Labs CBC & Chem 7: 06/14/24 02:57 06/14/24 02:57 Labs: Abnormal Lab Results - Last 24 Hours (Table) 06/13/24 06/13/24 06/13/24 Range/Units 03:49 03:49 11:24 WBC 10.46 H (4.50-10.00) X 10*3/uL RBC 3.96 L (4.40-5.60) X 10*6/uL Hgb 11.2 L (13.0-17.0) g/dL Hct 35.1 L (39.6-50.0) % MCHC 31.9 L (32.0-37.0) g/dL RDW 15.6 H (11.5-14.5) % MPV 9.0 L (9.5-12.2) FL Immature Gran # 0.07 H (0.00-0.04) X 10*3/uL Monocytes # 1.27 H (0.20-1.00) X 10*3/uL Glucose 140 H (70-110) mg/dL POC Glucose (mg/dL) 141 H (70-110) mg/dL Total Bilirubin (0.3-1.2) mg/dL AST (14-35) U/L Total Protein (6.2-8.2) g/dL Albumin (3.8-4.9) g/dL Albumin/Globulin Ratio (1.60-3.17) Ratio 06/13/24 06/13/24 06/14/24 Range/Units 16:28 20:28 02:57 WBC (4.50-10.00) X 10*3/uL RBC (4.40-5.60) X 10*6/uL Hgb (13.0-17.0) g/dL Hct (39.6-50.0) % MCHC (32.0-37.0) g/dL RDW (11.5-14.5) % MPV (9.5-12.2) FL Immature Gran # (0.00-0.04) X 10*3/uL Monocytes # (0.20-1.00) X 10*3/uL Glucose 135 H (70-110) mg/dL POC Glucose (mg/dL) 198 H 119 H (70-110) mg/dL Total Bilirubin <0.2 L (0.3-1.2) mg/dL AST 38 H (14-35) U/L Total Protein 5.9 L (6.2-8.2) g/dL Albumin 3.6 L (3.8-4.9) g/dL Albumin/Globulin Ratio 1.57 L (1.60-3.17) Ratio 06/14/24 Range/Units 06:23 WBC (4.50-10.00) X 10*3/uL RBC (4.40-5.60) X 10*6/uL Hgb (13.0-17.0) g/dL Hct (39.6-50.0) % MCHC (32.0-37.0) g/dL RDW (11.5-14.5) % MPV (9.5-12.2) FL Immature Gran # (0.00-0.04) X 10*3/uL Monocytes # (0.20-1.00) X 10*3/uL Glucose (70-110) mg/dL POC Glucose (mg/dL) 180 H (70-110) mg/dL Total Bilirubin (0.3-1.2) mg/dL AST (14-35) U/L Total Protein (6.2-8.2) g/dL Albumin (3.8-4.9) g/dL Albumin/Globulin Ratio (1.60-3.17) Ratio Microbiology - Last 24 Hours (Table) 06/09/24 12:30 Anaerobic Culture - Final Foot - Right Prevotella bivia Prevotella disiens Assessment and Plan Assessment: 1. Right fifth toe diabetic wound infection status post fifth toe amputation 2. Osteomyelitis right fifth toe 3. Peripheral arterial disease with bilateral lower extremity revascularization 4. Coronary artery disease with cardiac stents 5. Diabetes mellitus 6. Hyperlipidemia and hypertension 7. Thyroid disorder 8. History of CML 9. Former smoker Plan: 1. Patient may ambulate, offload pressure to forefoot, heel walk only 2. May shower no tub bathing 3. Postop shoe ordered, wear when ambulating 4. Consult to physical therapy evaluate and treat for right fifth toe amputation 5. Patient to follow-up with wound care clinic as scheduled 6. Continue antibiotic recommendations from infectious disease 7. Patient is cleared from vascular surgery for discharge Thank you for this consultation. The impression and plan of care has been dictated as directed. I performed a history and examination of this patient, discussed the same with the dictator. I agree with the dictator's note ,documented as a scribe. Any additional findings or plans will be noted.
[2024-06-14 11:31] LABS: Glucose,Whole Blood 168 mg/dL (70-110)
--- NOTE | 2024-06-14 14:20 | P.PN ---
Subjective Progress Note Date: 06/14/24 Principal diagnosis: Reason for follow-up is right fifth toe diabetic foot infec tion/gangrene/osteomyelitis Patient is a 58-year-old male with a past medical history significant for diabetes mellitus hypertension hyperlipidemia osteomyelitis has been dealing with wound to the right fifth toe since December 2023 now presenting with worsening discoloration of the right fifth toe stump and surrounding redness. Patient is status post right fifth toe amputation completed on 06/13/2024. On today's evaluation that is 06/14/2024, Patient is afebrile this morning patient denies having any chest pain shortness of breath or cough, the patient is currently on room air, patient denies any abdominal pain no diarrhea no nausea no vomiting pain to the right foot is currently controlled. Patient white count is 12.53 creatinine is 1.1 cultures are growing mostly Prevotella previous aerobic culture with strep and Serratia has been changed to no growth by micro lab Objective - Vital Signs Vital signs: Vital Signs Temp 98.5 F 06/14/24 06:51 Pulse 77 06/14/24 06:51 Resp 20 06/14/24 10:09 BP 149/81 06/14/24 06:51 Pulse Ox 97 06/14/24 06:51 FiO2 Intake & Output 06/13/24 06/14/24 06/14/24 18:59 06:59 18:59 Intake Total 650 100 Output Total 2 Balance 648 100 Intake: IV 450 Oral 200 100 Output: Estimated Blood Loss 2 Other: Voiding Method Toilet Toilet Toilet # Voids 1 2 - Exam GENERAL DESCRIPTION: Middle-age male lying in bed in no distress RESPIRATORY SYSTEM: Unlabored breathing , decreased breath sounds at bases HEART: S1 S2 regular rate and rhythm , ABDOMEN: Soft , no tenderness EXTREMITIES: Right foot fifth toe amputation site wound is currently staged minimal redness - Labs CBC & Chem 7: 06/14/24 02:57 06/14/24 02:57 Labs: Abnormal Lab Results - Last 24 Hours (Table) 06/13/24 06/13/24 06/14/24 Range/Units 16:28 20:28 02:57 WBC 12.53 H (4.50-10.00) X 10*3/uL RBC 3.60 L (4.40-5.60) X 10*6/uL Hgb 10.3 L (13.0-17.0) g/dL Hct 31.9 L (39.6-50.0) % RDW 15.9 H (11.5-14.5) % MPV 9.3 L (9.5-12.2) FL Lymphocytes # (Manual) 5.51 H (0.90-5.00) X 10*3/uL Eosinophils # (Manual) 0.38 H (0.04-0.35) X 10*3/uL Basophils # (Manual) 0.50 H (0.00-0.10) X 10*3/uL Glucose (70-110) mg/dL POC Glucose (mg/dL) 198 H 119 H (70-110) mg/dL Total Bilirubin (0.3-1.2) mg/dL AST (14-35) U/L Total Protein (6.2-8.2) g/dL Albumin (3.8-4.9) g/dL Albumin/Globulin Ratio (1.60-3.17) Ratio 06/14/24 06/14/24 06/14/24 Range/Units 02:57 06:23 11:29 WBC (4.50-10.00) X 10*3/uL RBC (4.40-5.60) X 10*6/uL Hgb (13.0-17.0) g/dL Hct (39.6-50.0) % RDW (11.5-14.5) % MPV (9.5-12.2) FL Lymphocytes # (Manual) (0.90-5.00) X 10*3/uL Eosinophils # (Manual) (0.04-0.35) X 10*3/uL Basophils # (Manual) (0.00-0.10) X 10*3/uL Glucose 135 H (70-110) mg/dL POC Glucose (mg/dL) 180 H 168 H (70-110) mg/dL Total Bilirubin <0.2 L (0.3-1.2) mg/dL AST 38 H (14-35) U/L Total Protein 5.9 L (6.2-8.2) g/dL Albumin 3.6 L (3.8-4.9) g/dL Albumin/Globulin Ratio 1.57 L (1.60-3.17) Ratio Microbiology - Last 24 Hours (Table) 06/09/24 12:30 Gram Stain - Final Foot - Right Wound Culture - Final 06/09/24 12:30 Anaerobic Culture - Final Foot - Right Prevotella bivia Prevotella disiens Assessment and Plan (1) Gangrene of toe of right foot Current Visit: Yes Status: Acute Code(s): I96 - GANGRENE, NOT ELSEWHERE CLASSIFIED SNOMED Code(s): 50855531125048866 (2) Diabetic infection of right foot Current Visit: Yes Status: Acute Code(s): E11.628 - TYPE 2 DIABETES MELLITUS WITH OTHER SKIN COMPLICATIONS; L08.9 - LOCAL INFECTION OF THE SKIN AND SUBCUTANEOUS TISSUE, UNSP SNOMED Code(s): 182839690 (3) Penicillin allergy Current Visit: Yes Status: Acute Code(s): Z88.0 - ALLERGY STATUS TO PENICILLIN SNOMED Code(s): 96051262 (4) Osteomyelitis Current Visit: Yes Status: Acute Code(s): M86.9 - OSTEOMYELITIS, UNSPECIFIED SNOMED Code(s): 55335817 Plan: 1patient presented to hospital with right fifth toe discoloration with surrounding swelling redness abnormal x-ray suggestive of osteomyelitis in this patient with underlying history of diabetes mellitus and diabetic foot infection we need to cover for the polymicrobial chago associated with such condition 2-penicillin allergy that will limit the number of antibiotics safe to use 3-local culture currently initially growing Serratia and strep that has been changed by the micro lab to no growth 4-patient is status post right fifth toe ray amputation will evaluate the wound base looks clean with minimal cellulitis we will finish therapy with a short course of oral Ceftin and Flagyl close outpatient follow-up prescription sent to pharmacy Dictation was produced using [employer] software. please excuse any grammatical, word or spelling errors. Time with Patient: Less than 30
[2024-06-14 14:37] VITALS: BP 95/50; PULSE 73; RESP 18; TEMP 98.3
--- NOTE | 2024-06-14 14:47 | P.DS ---
Providers Date of admission: 06/09/24 11:11 Expected date of discharge: 06/14/24 Attending physician: Braulio Dunaway MD Consults: 06/09/24 10:59 Consult Physician Urgent Consulting Provider: Alber Fall Consult Reason/Comments: Osteomyelitis, gangrene, prior stent Do you want consulting provider notified?: Yes Consult Physician Urgent Consulting Provider: Rossy Mendoza Consult Reason/Comments: Osteomyelitis Do you want consulting provider notified?: Yes Primary care physician: Марина Sweeney Hospital Course: Discharge diagnoses; Right fifth toe osteomyelitis Right foot cellulitis Ischemic cardiomyopathy, 25 to 30% Peripheral arterial disease, s/p percutaneous atherectomy of the right SFA & angioplasty of the right tibioperoneal trunk, 05/13/2024 Hypertension Hyperlipidemia Diabetes Hospital course; patient is a 58-year-old gentleman with past medical history significant for cardiomyopathy, peripheral artery disease, hypertension open to the ER for right foot wound. Patient stated that he has been dealing with his right foot wound since December and normally follows up outpatient with ID as well as vascular surgery. Patient noted that over the last 1 week the redness over his left foot had increased. Patient also complaining of more pain in his foot. Patient denies any fever or chills. There is no complaint of chest pain or shortness of breath. Patient denies any orthopnea or PND. There is no complaint of swelling of feet. Initial lab work done in the ER showed WBC 11.4, hemoglobin 12.2, platelet count 379, sodium 138, potassium 5, BUN 16, creatinine 0.95, glucose 155, AST 47, ALT 37, CRP 2.4 X-ray foot done showed osteomyelitis of the fifth digit proximal and distal phalanx Patient admitted to internal medicine service 06/10. Patient seen and examined. Denies any foot pain. Denies any fever or chills. Vital signs stable 06/11/2024 Patient is evaluated today in follow-up in the medical floor. He is resting in bed comfortably. He continues on IV vancomycin and IV cefepime with wound cultures pending of the right fifth toe. He will be going for amputation of the right great toe on Thursday. 06/12/2024 Patient notes a resting bed comfortably. He has no acute complaints at this time. He states that his pain is being managed currently with his pain regimen. His wound cares are positive for group B strep and Serratia. Anaerobes are positive also he continues on IV cefepime and oral Flagyl was added. Patient will be going for amputation of the right great toe tomorrow. 06/14. Patient examined. Patient underwent right fifth toe ray amputation. WBC 12.53, bili 10.3, platelet count 425, sodium 140, potassium 4.4, BUN 17.9 creatinine 1.1. Being discharged on oral Ceftin and Flagyl. Outpatient follow- up with ID PHYSICAL EXAMINATION: GENERAL: The patient is alert and oriented x3, not in any acute distress. Well developed, well nourished. HEENT: Pupils are round and equally reacting to light. EOMI. No scleral icterus. No conjunctival pallor. Normocephalic, atraumatic. No pharyngeal erythema. No thyromegaly. CARDIOVASCULAR: S1 and S2 present. No murmurs, rubs, or gallops. PULMONARY: Chest is clear to auscultation, no wheezing or crackles. ABDOMEN: Soft, nontender, nondistended, normoactive bowel sounds. No palpable organomegaly. MUSCULOSKELETAL: No joint swelling or deformity. EXTREMITIES: Right foot bandaged seen NEUROLOGICAL: Gross neurological examination did not reveal any focal deficits. SKIN: No rashes. Dictation was produced using [employer] dictation software. please excuse any grammatical, word or spelling errors. Patient Condition at Discharge: Fair Plan - Discharge Summary Discharge Rx Participant: No New Discharge Prescriptions: New metroNIDAZOLE [Flagyl] 500 mg PO TID #30 tab cefuroxime axetiL [Ceftin] 500 mg PO BID #20 tab Atorvastatin [Lipitor] 40 mg PO HS 30 Days #30 tab HYDROcodone/APAP 5-325MG [[place] 5-325] 1 each PO Q6HR PRN 3 Days #12 tab PRN Reason: Pain Scale 7 To 10 Continue Aspirin 81 mg PO DAILY Semaglutide [Ozempic] 1 mg SQ WE Cyclobenzaprine [Flexeril] 5 mg PO BID PRN PRN Reason: Muscle Pain Nitroglycerin Sl Tabs [Nitrostat] 0.4 mg SUBLINGUAL Q5M PRN #25 tab PRN Reason: Chest Pain Evolocumab [Repatha Sureclick] 140 mg SQ Q14D ondansetron HCL [Zofran] 8 mg PO TID PRN PRN Reason: nausea Escitalopram [Lexapro] 20 mg PO HS metFORMIN HCL [Glucophage Xr] 750 mg PO BID Potassium Chloride [K-Tab ER] 20 meq PO HS Furosemide [Lasix] 40 mg PO DAILY lisinopriL [Zestril] 10 mg PO DAILY Prasugrel [Effient] 10 mg PO DAILY #90 tab Spironolactone 25 mg PO DAILY Gabapentin 300 mg PO BID Discontinued Atorvastatin [Lipitor] 80 mg PO HS #90 tab Cephalexin [Keflex] 500 mg PO Q6HR Discharge Medication List Aspirin 81 mg PO DAILY 02/02/18 [History] metFORMIN HCL [Glucophage Xr] 750 mg PO BID 09/26/20 [History] Furosemide [Lasix] 40 mg PO DAILY 08/10/23 [History] Potassium Chloride [K-Tab ER] 20 meq PO HS 08/10/23 [History] Semaglutide [Ozempic] 1 mg SQ WE 08/10/23 [History] Cyclobenzaprine [Flexeril] 5 mg PO BID PRN 08/11/23 [History] lisinopriL [Zestril] 10 mg PO DAILY 08/11/23 [History] Nitroglycerin Sl Tabs [Nitrostat] 0.4 mg SUBLINGUAL Q5M PRN #25 tab 08/12/23 [Rx] Evolocumab [Repatha Sureclick] 140 mg SQ Q14D 08/18/23 [History] Prasugrel [Effient] 10 mg PO DAILY #90 tab 08/21/23 [Rx] Spironolactone 25 mg PO DAILY 05/11/24 [History] Escitalopram [Lexapro] 20 mg PO HS 06/09/24 [History] Gabapentin 300 mg PO BID 06/09/24 [History] ondansetron HCL [Zofran] 8 mg PO TID PRN 06/09/24 [History] Atorvastatin [Lipitor] 40 mg PO HS 30 Days #30 tab 06/14/24 [Rx] HYDROcodone/APAP 5-325MG [[place] 5-325] 1 each PO Q6HR PRN 3 Days #12 tab 06/14/24 [Rx] cefuroxime axetiL [Ceftin] 500 mg PO BID #20 tab 06/14/24 [Rx] metroNIDAZOLE [Flagyl] 500 mg PO TID #30 tab 06/14/24 [Rx] Follow up Appointment(s)/Referral(s): Марина Sweeney DO [Primary Care Provider] - 1-2 days Alber Fall DO [STAFF PHYSICIAN] - 1 Week Rossy Mendoza MD [STAFF PHYSICIAN] - 1 Week [facility] Visiting Nurse, [NON-STAFF] - 1 Week
== END 2024-06-14 17:24 | disposition home or self-care (01) | DRG 240 ==
LOC: EC 09:15 → 4SSUR 11:11
PROVIDERS: ADMIT Internal Medicine; ATTEND Internal Medicine
PROC: 0Y6M0ZF Detachment at Right Foot, Partial 5th Ray, Open Approach (ICD-10-PCS; principal; 2024-06-13 15:00)
DX: E11.52 Type 2 diabetes mellitus with diabetic peripheral angiopathy with gangrene (principal); L03.115 Cellulitis of right lower limb; Z94.81 Bone marrow transplant status; E11.42 Type 2 diabetes mellitus with diabetic polyneuropathy; I10 Essential (primary) hypertension; J45.909 Unspecified asthma, uncomplicated; I08.1 Rheumatic disorders of both mitral and tricuspid valves; M86.8X7 Other osteomyelitis, ankle and foot; E11.69 Type 2 diabetes mellitus with other specified complication; E11.628 Type 2 diabetes mellitus with other skin complications; F41.9 Anxiety disorder, unspecified; I25.5 Ischemic cardiomyopathy; E78.5 Hyperlipidemia, unspecified; I25.10 Atherosclerotic heart disease of native coronary artery without angina pectoris; Z79.02 Long term (current) use of antithrombotics/antiplatelets; Z79.82 Long term (current) use of aspirin; Z79.84 Long term (current) use of oral hypoglycemic drugs; Z79.899 Other long term (current) drug therapy; Z82.49 Family history of ischemic heart disease and other diseases of the circulatory system; Z87.891 Personal history of nicotine dependence; Z88.0 Allergy status to penicillin; Z95.5 Presence of coronary angioplasty implant and graft; Z96.652 Presence of left artificial knee joint; Z87.19 Personal history of other diseases of the digestive system
CPT/HCPCS: 36415; 80048; 80053; 80202; 82565; 83605; 85025; 86140; 87040; 87070; 87075; 87205; 88305; 88311; 93005; 93306; 93923; 96365; 96366; 96367; 96375; 99285

== ENCOUNTER 2024-07-23 20:58 | Inpatient (IN) | payer BC, MEDICARE ==
[2024-07-23] MEDS ORDERED: VANCOMYCIN IV PER PHARMACY 1 EACH MISC MISCELLANE PRN (21:26)
--- NOTE | 2024-07-23 21:47 | ED ---
General Adult HPI - General Chief complaint: Skin/Abscess/Foreign Body Stated complaint: Foot Wound, Possible Infection Time Seen by Provider: 07/23/24 21:16 Source: patient, RN notes reviewed, old records reviewed Mode of arrival: ambulatory Limitations: no limitations - History of Present Illness Initial comments: Patient is a 58-year-old male with past medical history markable for diabetes, asthma, CAD, hypertension, hyperlipidemia. Patient also has a history of CML and is immunocompromised. Has a history of recent right fifth toe amputation in May 2024. This was done by Dr. Fall. Presents for further evaluation at this time. States that he was walking and developed a blister on Thursday of last week near the site of her surgical wound. Since that time it has been having some oozing of maybe some purulent drainage but has turned red around the site and had some redness extending up into his leg. Did see wound care on Thursday and redness is worse since then. Is concerned for skin infection. Presents for further evaluation at this time. Also states he has been dealing with cough, congestion but is improving. Denies any chest pain or abdominal pain or nausea or vomiting. Presents for further evaluation at this time. - Related Data Home Medications Medication Instructions Recorded Confirmed Aspirin 81 mg PO DAILY 02/02/18 06/09/24 metFORMIN HCL [Glucophage Xr] 750 mg PO BID 09/26/20 06/09/24 Furosemide [Lasix] 40 mg PO DAILY 08/10/23 06/09/24 Potassium Chloride [K-Tab ER] 20 meq PO HS 08/10/23 06/09/24 Semaglutide [Ozempic] 1 mg SQ WE 08/10/23 06/09/24 Cyclobenzaprine [Flexeril] 5 mg PO BID PRN 08/11/23 06/09/24 lisinopriL [Zestril] 10 mg PO DAILY 08/11/23 06/09/24 Evolocumab [Repatha Sureclick] 140 mg SQ Q14D 08/18/23 06/09/24 Spironolactone 25 mg PO DAILY 05/11/24 06/09/24 Escitalopram [Lexapro] 20 mg PO HS 06/09/24 06/09/24 Gabapentin 300 mg PO BID 06/09/24 06/09/24 ondansetron HCL [Zofran] 8 mg PO TID PRN 06/09/24 06/09/24 Previous Rx's Medication Instructions Recorded Nitroglycerin Sl Tabs [Nitrostat] 0.4 mg SUBLINGUAL Q5M PRN #25 tab 08/12/23 Prasugrel [Effient] 10 mg PO DAILY #90 tab 08/21/23 Atorvastatin [Lipitor] 40 mg PO HS 30 Days #30 tab 06/14/24 HYDROcodone/APAP 5-325MG [[place] 1 each PO Q6HR PRN 3 Days #12 tab 06/14/24 5-325] cefuroxime axetiL [Ceftin] 500 mg PO BID #20 tab 06/14/24 metroNIDAZOLE [Flagyl] 500 mg PO TID #30 tab 06/14/24 Allergies Allergy/AdvReac Type Severity Reaction Status Date / Time Penicillins Allergy Unknown Verified 07/23/24 21:03 Childhood Review of Systems ROS Statement: Those systems with pertinent positive or pertinent negative responses have been documented in the HPI. Review of Systems: CONST: Denies fever EYES: Denies blurry vision ENT: Denies nasal congestion C/V: Denies Chest pain RESP: Denies shortness of breath GI: Denies abdominal pain : Denies dysuria SKIN: Endorses right foot wound/cellulitis concern MSK: Denies joint pain. NEURO: Denies headache ROS Other: All systems not noted in ROS Statement are negative. 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 mild Edema rt lower leg, abdominal hernia, no cpap used since wt loss, sleeps elevated, sepsis after dog bite to hand 2020. seasonal allergies, , recent SOB. AR seen on stress test per pt. ( 2 weeks ago), c/o left sided neck pain, "it's the vein in that side of my neck", has had some N/V this week, will get nauseated occasionally anyway but seems mor e frequent this week, recent adm. [facility] for coronary stent, tired, SOB w/exertion History of Any Multi-Drug Resistant Organisms: None Reported Past Surgical History: Heart Catheterization With Stent, Joint Replacement Additional Past Surgical History / Comment(s): BONE MARROW TRANSPLANT 2006, Lt KNEE arthroscopy, left knee REPLACEMENT, SEPTAL SURG, BMTs bilateral ears, hemorrhoidectomy, colonoscopy, vasectomy, aortogram, atherectomy with balloon angioplasty 08/25/17. stent in legs 2020, recent card. cath Past Anesthesia/Blood Transfusion Reactions: No Reported Reaction Additional Past Anesthesia/Blood Transfusion Reaction / Comment(s): Pt has received blood without reaction. Mom had problems with dyes. Date of Last Stent Placement:: 08/11/23 Past Psychological History: Anxiety Smoking Status: Never smoker Past Alcohol Use History: None Reported Past Drug Use History: Marijuana - Past Family History Father Family Medical History: Coronary Artery Disease (CAD), Pulmonary Embolus Additional Family Medical History / Comment(s): cabg Mother Family Medical History: Dementia Additional Family Medical History / Comment(s): Mother at age 72yrs. Daughter(s) Family Medical History: Blood Disorder Additional Family Medical History / Comment(s): "they just keep bleeding' both daughters General Exam - General Exam Comments Initial Comments: General: Appears in no acute distress. HEAD: Normal with no signs of head trauma. EYES: EOMI ENT: Hearing grossly intact, normal oropharynx. RESPIRATORY: Clear breath sounds bilaterally. No wheezes, rales, or rhonchi. No hypoxia. No increased work of breathing. C/V: Regular rate and rhythm. S1 and S2 auscultated, peripheral pulses 2+ and intact throughout ABD: Abd is soft, nontender, nondistended EXT: Normal range of motion, no obvious deformity SKIN: Patient has an open wound that currently has no discharge located over the surgical incision at the site of the right fifth toe amputation. Surrounding erythema that extends up into the leg with some edema. No obvious fluctuance. Concern for infection. NEURO: Alert and oriented x 4. Limitations: no limitations Course Vital Signs 07/23/24 07/23/24 21:01 22:49 Temperature 99.4 F Pulse Rate 111 H 89 Respiratory 20 16 Rate Blood Pressure 175/84 160/91 O2 Sat by Pulse 98 95 Oximetry Medical Decision Making - Medical Decision Making Was pt. sent in by a medical professional or institution (, PA, PRINCIPAL EMBEDDED SOFTWARE ENGINEER, urgent care, hospital, or intermediate...) When possible be specific @ -No Did you speak to anyone other than the patient for history (EMS, parent, family, police, friend...)? What history was obtained from this source @ -No Did you review nursing and triage notes (agree or disagree)? Why? @ -I reviewed and agree with nursing and triage notes Were old charts reviewed (outside hosp., previous admission, EMS record, old EKG, old radiological studies, urgent care reports/EKG's, intermediate records)? Report findings @ -Chart from May 2024 when patient had right fifth toe amputation completed by Dr. Fall Differential Diagnosis (chest pain, altered mental status, abdominal pain women, abdominal pain men, vaginal bleeding, weakness, fever, dyspnea, syncope, headache, dizziness, GI bleed, back pain, seizure, CVA, palpatations, mental health, musculoskeletal)? @ -Cellulitis, foot wound, COVID, flu, RSV, pneumonia. This list is not all inclusive. EKG interpreted by me (3pts min.). @ -None done X-rays interpreted by me (1pt min.). @ -Chest x-ray shows no obvious acute cardiopulmonary process. Patient's right foot x-ray concerning for possible osteomyelitis per radiology. CT interpreted by me (1pt min.). @ -None done U/S interpreted by me (1pt. min.). @ -None done What testing was considered but not performed or refused? (CT, X-rays, U/S, labs)? Why? @ -None What meds were considered but not given or refused? Why? @ -None Did you discuss the management of the patient with other professionals (professionals i.e. , PA, PRINCIPAL EMBEDDED SOFTWARE ENGINEER, lab, RT, psych nurse, social media marketing analyst, certified nurse operating room, teacher, mail officer, piano case maker)? Give summary @ - I spoke with the admitting provider, Dr. Johnson who accepted the admission Was smoking cessation discussed for >3mins.? @ -No Was critical care preformed (if so, how long)? @ -No Were there social determinants of health that impacted care today? How? (Homelessness, low income, unemployed, alcoholism, drug addiction, trans portation, low edu. Level, literacy, decrease access to med. care, assisted, rehab)? @ -No Was there de-escalation of care discussed even if they declined (Discuss DNR or withdrawal of care, Hospice)? DNR status @ -No What co-morbidities impacted this encounter? (DM, HTN, Smoking, COPD, CAD, Cancer, CVA, ARF, Chemo, Hep., AIDS, mental health diagnosis, sleep apnea, morbid obesity)? @ -CML, immunocompromise, diabetes Was patient admitted / discharged? Hospital course, mention meds given and route, prescriptions, significant lab abnormalities, going to OR and other pertinent info. @ -Based on patient's presentation and physical exam, presents emergency department with concern for foot wound. Recent amputation in May 2024. Has what appears to be cellulitis on exam of the right foot and right foreleg. He is immunocompromise with diabetes as well as CML. No fevers. Vitals remarkable for mild tachycardia. Patient will be administered IV fluids as well as Toradol. We will obtain general labs, wound cultures, blood cultures and patient initiated on vancomycin. Patient has been having a productive cough and therefore we will obtain Cepheid, chest x-ray. Chest x-ray shows no obvious acute cardiopulmonary process. Patient's right foot x-ray concerning for possible osteomyelitis per radiology. Patient's labs remarkable for negative viral swabs. Patient does have a leukocytosis of 18. Lactic acid within normal limits. Due to the concern for osteomyelitis, patient was placed on meropenem in addition to vancomycin as he does have a penicillin allergy. Will continue with treatment. Infectious disease consulted. Dr. Fall consulted. Patient was in agreement this plan. I spoke with the admitting provider, Dr. Johnson who accepted the admission. Undiagnosed new problem with uncertain prognosis? @ -No Drug Therapy requiring intensive monitoring for toxicity (Heparin, Nitro, Insulin, Cardizem)? @ -No Were any procedures done? @ -No Diagnosis/symptom? @ -Right foot wound, concern for osteomyelitis, Cellulitis Acute, or Chronic, or Acute on Chronic? @ -Acute Uncomplicated (without systemic symptoms) or Complicated (systemic symptoms)? @ -Complicated Side effects of treatment? @ -None Exacerbation, Progression, or Severe Exacerbation] @ -No Poses a threat to life or bodily function? @ -Yes - Lab Data Result diagrams: 07/23/24 21:36 07/23/24 21:36 Lab Results 07/23/24 07/23/2407/23/25 Range/Units 21:33 21:36 21:36 WBC 18.93 H (4.50-10.00) 10*3/uL RBC 4.84 (4.40-5.60) 10*6/uL Hgb 13.8 (13.0-17.0) g/dL Hct 41.0 (39.6-50.0) % MCV 84.7 (80.0-97.0) fL MCH 28.5 (27.0-32.0) pg MCHC 33.7 (32.0-37.0) g/dL Plt Count 472 H (140-440) 10*3/uL MPV 9.0 L (9.5-12.2) fL Immature Gran % (Auto) 0.7 % Neutrophils % 64.1 % Lymphocytes % 26.2 % Monocytes % 7.9 % Eosinophils % 0.5 % Basophils % 0.6 % Immature Gran # 0.14 H (0.00-0.04) 10*3/uL Neutrophils # 12.11 H (1.80-7.70) 10*3/uL Lymphocytes # 4.96 (0.90-5.00) 10*3/uL Monocytes # 1.50 H (0.20-1.00) 10*3/uL Eosinophils # 0.10 (0.04-0.35) 10*3/uL Basophils # 0.12 H (0.00-0.10) 10*3/uL Sodium 135 L (137-145) mmol/L Potassium 4.4 (3.5-5.1) mmol/L Chloride 95 L (98-107) mmol/L Carbon Dioxide 27 (22-30) mmol/L Anion Gap 13 mmol/L BUN 23 H (9-20) mg/dL Creatinine 1.13 (0.66-1.25) mg/dL Est GFR (CKD-EPI)AfAm 82 (>60 ml/min/1.73 sqM) Est GFR (CKD-EPI)NonAf 71 (>60 ml/min/1.73 sqM) Glucose 191 H (74-99) mg/dL Plasma Lactic Acid Alexei (0.7-2.0) mmol/L Calcium 10.0 (8.4-10.2) mg/dL Total Bilirubin 0.4 (0.2-1.3) mg/dL AST 32 (17-59) U/L ALT 33 (4-49) U/L Alkaline Phosphatase 111 (38-126) U/L Total Protein 7.6 (6.3-8.2) g/dL Albumin 4.4 (3.5-5.0) g/dL Influenza Type A (PCR) Not Detected (Not Detectd) Influenza Type B (PCR) Not Detected (Not Detectd) RSV (PCR) Not Detected (Not Detectd) SARS-CoV-2 (PCR) Not Detected (Not Detectd) 07/23/24 Range/Units 21:36 WBC (4.50-10.00) 10*3/uL RBC (4.40-5.60) 10*6/uL Hgb (13.0-17.0) g/dL Hct (39.6-50.0) % MCV (80.0-97.0) fL MCH (27.0-32.0) pg MCHC (32.0-37.0) g/dL Plt Count (140-440) 10*3/uL MPV (9.5-12.2) fL Immature Gran % (Auto) % Neutrophils % % Lymphocytes % % Monocytes % % Eosinophils % % Basophils % % Immature Gran # (0.00-0.04) 10*3/uL Neutrophils # (1.80-7.70) 10*3/uL Lymphocytes # (0.90-5.00) 10*3/uL Monocytes # (0.20-1.00) 10*3/uL Eosinophils # (0.04-0.35) 10*3/uL Basophils # (0.00-0.10) 10*3/uL Sodium (137-145) mmol/L Potassium (3.5-5.1) mmol/L Chloride (98-107) mmol/L Carbon Dioxide (22-30) mmol/L Anion Gap mmol/L BUN (9-20) mg/dL Creatinine (0.66-1.25) mg/dL Est GFR (CKD-EPI)AfAm (>60 ml/min/1.73 sqM) Est GFR (CKD-EPI)NonAf (>60 ml/min/1.73 sqM) Glucose (74-99) mg/dL Plasma Lactic Acid Alexei 1.9 (0.7-2.0) mmol/L Calcium (8.4-10.2) mg/dL Total Bilirubin (0.2-1.3) mg/dL AST (17-59) U/L ALT (4-49) U/L Alkaline Phosphatase (38-126) U/L Total Protein (6.3-8.2) g/dL Albumin (3.5-5.0) g/dL Influenza Type A (PCR) (Not Detectd) Influenza Type B (PCR) (Not Detectd) RSV (PCR) (Not Detectd) SARS-CoV-2 (PCR) (Not Detectd) Disposition Clinical Impression: Wound of right foot, Osteomyelitis, Cellulitis Disposition: ADMITTED IP TO THIS HOSP Condition: Stable Time of Disposition: 22:49
[2024-07-23 21:49] LABS: Basophils # (A) 0.12 10*3/uL (0.00-0.10); Basophils % (A) 0.6 %; Eosinophils % (A) 0.5 %; HGB 13.8 g/dL (13.0-17.0); Lymphocytes # (A) 4.96 10*3/uL (0.90-5.00); Lymphocytes % (A) 26.2 %; MCH 28.5 pg (27.0-32.0); MCHC 33.7 g/dL (32.0-37.0); MCV 84.7 fL (80.0-97.0); Monocytes % (A) 7.9 %; Neutrophils # (A) 12.11 10*3/uL (1.80-7.70); Neutrophils % (A) 64.1 %; Platelet Count 472 10*3/uL (140-440); RBC 4.84 10*6/uL (4.40-5.60); RDW 16.5 % (11.5-14.5); WBC 18.93 10*3/uL (4.50-10.00)
--- NOTE | 2024-07-23 21:49 | XR ---
EXAMINATION TYPE: XR foot limited RT DATE OF EXAM: 07/23/2024 9:45 PM COMPARISON: None CLINICAL INDICATION: Male, 58 years old with history of eval for osteomyelitis; PHH, pain TECHNIQUE: XR foot limited RT examined in the AP, oblique, and lateral projections. FINDINGS: Postsurgical changes to the fifth digit with amputation changes. Soft tissue swelling present. Hazy m argin at the amputation site of the fifth metatarsal. IMPRESSION: Cortical erosion at the amputation site of the fifth metatarsal concerning for as well as. Consider t hree-phase bone scan for confirmation. [facility], , 07/23/2024 9:47 PM
--- NOTE | 2024-07-23 21:50 | XR ---
EXAMINATION TYPE: XR chest 2V DATE OF EXAM: 07/23/2024 9:45 PM COMPARISON: 08/18/2023 CLINICAL INDICATION: Male, 58 years old with history of cough; [facility] TECHNIQUE: XR chest 2V Frontal and lateral views of the chest. FINDINGS: Lungs/Pleura: There is no evidence of pleural effusion, focal consolidation, or pneumothorax. Pulmonary vascularity: Unremarkable. Heart/mediastinum: Cardiomediastinal silhouette is unremarkable. Musculoskeletal: No acute osseous pathology. IMPRESSION: No acute cardiopulmonary disease/process. [facility], , 07/23/2024 9:48 PM
[2024-07-23] MEDS: KETOROLAC 15 MG/ML 1 ML VIAL IVP STA (21:55)
[2024-07-23] MEDS: LACTATED RINGERS 1,000 ML IV ONE (21:57)
[2024-07-23 22:07] LABS: ALT 33 U/L (4-49); AST 32 U/L (17-59); African American GFR (CKD) 82 (>60 ml/min/1.73 sqM); Albumin 4.4 g/dL (3.5-5.0); Alkaline Phosphatase 111 U/L (38-126); Anion Gap 13 mmol/L; Blood Urea Nitrogen 23 mg/dL (9-20); Carbon Dioxide 27 mmol/L (22-30); Chloride 95 mmol/L (98-107); Glucose 191 mg/dL (74-99); Non-African American GFR(CKD) 71 (>60 ml/min/1.73 sqM); Potassium 4.4 mmol/L (3.5-5.1); Sodium 135 mmol/L (137-145); Total Bilirubin 0.4 mg/dL (0.2-1.3); Total Protein 7.6 g/dL (6.3-8.2)
[2024-07-23 22:25] LABS: Influenza A Not Detected (Not Detectd); Influenza B Not Detected (Not Detectd); RSV Not Detected (Not Detectd)
[2024-07-23] MEDS: VANCOMYCIN 1,250 MG in SODIUM CHLORIDE 0.9% 250 ML IVPB ONE (22:25)
[2024-07-23] MEDS: LACTATED RINGERS 1,000 ML IV SCH (22:44)
[2024-07-23] MEDS: MEROPENEM 1 GM in SODIUM CHLORIDE 0.9% 100 ML IVPB SCH (22:48)
[2024-07-23] MEDS ORDERED: NALOXONE 0.4 MG/ML 1 ML VIAL IV PRN (22:49)
[2024-07-23] MEDS ORDERED: ONDANSETRON 4 MG/2 ML VIAL IVP PRN (22:49)
[2024-07-24 07:41] LABS: HCT 35.7 % (39.6-50.0); MCH 28.8 pg (27.0-32.0); MCHC 33.6 g/dL (32.0-37.0); MCV 85.8 fL (80.0-97.0); Mean Platelet Volume 9.4 fL (9.5-12.2); Platelet Count 415 10*3/uL (140-440); RBC 4.16 10*6/uL (4.40-5.60); RDW 16.6 % (11.5-14.5); WBC 15.59 10*3/uL (4.50-10.00)
[2024-07-24 07:48] LABS: ALT 26 U/L (4-49); AST 26 U/L (17-59); African American GFR (CKD) >90 (>60 ml/min/1.73 sqM); Albumin 3.6 g/dL (3.5-5.0); Alkaline Phosphatase 106 U/L (38-126); Anion Gap 9 mmol/L; Blood Urea Nitrogen 23 mg/dL (9-20); Calcium 9.2 mg/dL (8.4-10.2); Carbon Dioxide 26 mmol/L (22-30); Chloride 101 mmol/L (98-107); Glucose 164 mg/dL (74-99); Non-African American GFR(CKD) 81 (>60 ml/min/1.73 sqM); Sodium 136 mmol/L (137-145); Total Bilirubin 0.5 mg/dL (0.2-1.3); Total Protein 6.4 g/dL (6.3-8.2)
[2024-07-24] MEDS: ENOXAPARIN 40 MG/0.4 ML SYRINGE SQ SCH (07:54)
[2024-07-24 08:54] LABS: Spherocytes Present
[2024-07-24 09:01] LABS: Eosinophils # (M) 0.16 k/uL (0-0.7); Lymphocytes # (M) 6.08 k/uL (1.0-4.8); Neutrophils # (M) 9.35 k/uL (1.3-7.7); Neutrophils % (M) 60 %; Nucleated Red Blood Cells 0 /100 WBC (0-0); Total Cells Counted 100
[2024-07-24] MEDS: VANCOMYCIN 1,250 MG in SODIUM CHLORIDE 0.9% 250 ML IVPB SCH (11:28)
[2024-07-24] MEDS: KETOROLAC 15 MG/ML 1 ML VIAL IVP PRN (14:36)
[2024-07-24] MEDS: metroNIDAZOLE 500 MG TAB PO SCH (15:50)
[2024-07-24] MEDS ORDERED: CEFEPIME 2 GM in SODIUM CHLORIDE 0.9% 100 ML IVPB SCH (16:00)
[2024-07-24] MEDS ORDERED: CYCLOBENZAPRINE 5 MG TAB PO PRN (20:38)
--- NOTE | 2024-07-24 20:46 | P.HPIM ---
History of Present Illness This is a pleasant 58 years old male with past medical history of multiple medical problems including depression, coronary artery disease, peripheral artery disease s/p amputation of the right first toe from osteomyelitis and gangrene. Presents because of swelling erythema and tenderness signs for inflammation of the lateral distal forefoot. Patient states this started Thursday he does not know how it started but thinks it from the boot. He denies any other specific symptoms. No chest pain or dyspnea. No neurological symptoms. No GI/ symptoms. No fever chills Patient denies smoking alcohol or illicit drugs. Vital stable afebrile. He has leukocytosis 18 and 15.5. Rest of BMP LFT is unremarkable. Influenza and COVID were undetectable Foot x-ray showed cortical erosion and complications side of the first metatarsal bone suspicious for osteomyelitis Wound cultures growing Streptococcus agalactiae and Staph aureus final sensitivities pending Patient currently on IV cefepime and IV vancomycin and Ringer lactate 100 mL/h Review of Systems Review of systems CONSTITUTIONAL: No fever, no malaise, no fatigue. HEENT: No recent visual problems or hearing problems. Denied any sore throat. CARDIOVASCULAR: No orthopnea, PND, no palpitations, no syncope. PULMONARY: No shortness of breath, no cough, no hemoptysis. GASTROINTESTINAL: No diarrhea, no nausea, no vomiting, no abdominal pain. Normoactive bowel sounds. NEUROLOGICAL: No headaches, no weakness, no numbness. HEMATOLOGICAL: Denies any bleeding or petechiae. GENITOURINARY: Denies any burning micturition, frequency, or urgency. MUSCULOSKELETAL/RHEUMATOLOGICAL: Denies any joint pain, swelling, or any muscle pain. ENDOCRINE: Denies any polyuria or polydipsia. Past Medical History Past Medical History: Asthma, Coronary Artery Disease (CAD), Cancer, Chest Pain / Angina, Diabetes Mellitus, Hyperlipidemia, Hypertension, Osteoarthritis (OA), Pneumonia, Sleep Apnea/CPAP/BIPAP, Thyroid Disorder, Vascular Disorder Additional Past Medical History / Comment(s): CML- immmunosuppressed, carpal tunnel bilaterally, chronic dry mucosa from the hzegj-sudzfa-lgsr disease (especially of the eyes and oral cavity). mild Edema rt lower leg, abdominal hernia, no cpap used since wt loss, sleeps elevated, sepsis after dog bite to hand 2020. seasonal allergies, , recent SOB. [place] seen on stress test per pt. ( 2 weeks ago), c/o left sided neck pain, "it's the vein in that side of my neck", has had some N/V this week, will get nauseated occasionally anyway but seems more frequent this week, recent adm. [facility] for coronary stent, tired, SOB w/exertion History of Any Multi-Drug Resistant Organisms: None Reported Past Surgical History: Heart Catheterization With Stent, Joint Replacement Additional Past Surgical History / Comment(s): BONE MARROW TRANSPLANT 2006, Lt KNEE arthroscopy, left knee REPLACEMENT, SEPTAL SURG, BMTs bilateral ears, hemorrhoidectomy, colonoscopy, vasectomy, aortogram, atherectomy with balloon angioplasty 08/25/17. stent in legs 2020, recent card. cath Past Anesthesia/Blood Transfusion Reactions: No Reported Reaction Additional Past Anesthesia/Blood Transfusion Reaction / Comment(s): Pt has received blood without reaction. Mom had problems with dyes. Date of Last Stent Placement:: 08/11/23 Past Psychological History: Anxiety Additional Psychological History / Comment(s): Pt resides with his spouse and 2 grown children. He is independent. He uses no assistive device. He has DEDE and his CPAP is broken so he is not using it at this time. He drives. 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 Was a tobacco smoker briefly more than 2 0 years ago. No significant alcohol use. No recreational drugs use. No experience. No recent travel history. No animal exposures. Smoking Status: Never smoker Past Alcohol Use History: None Reported Additional Past Alcohol Use History / Comment(s): Quit smoking 25 yrs ago, smoked only socially. Pt stated he has not had alcohol since jan 2024 Past Drug Use History: None Reported, Marijuana Additional Drug Use History / Comment(s): cbd oil, pt aware not to use today - Past Family History Father Family Medical History: Coronary Artery Disease (CAD), Pulmonary Embolus Additional Family Medical History / Comment(s): cabg Mother Family Medical History: Dementia Additional Family Medical History / Comment(s): Mother at age 72yrs. Daughter(s) Family Medical History: Blood Disorder Additional Family Medical History / Comment(s): "they just keep bleeding' both daughters Medications and Allergies Home Medications Medication Instructions Recorded Confirmed Type Aspirin 81 mg PO DAILY 02/02/18 07/24/24 History metFORMIN HCL [Glucophage Xr] 750 mg PO BID 09/26/20 07/24/24 History Furosemide [Lasix] 40 mg PO DAILY 08/10/23 07/24/24 History Potassium Chloride [K-Tab ER] 20 meq PO HS 08/10/23 07/24/24 History Semaglutide [Ozempic] 1 mg SQ WE 08/10/23 07/24/24 History Cyclobenzaprine [Flexeril] 5 mg PO BID PRN 08/11/23 07/24/24 History lisinopriL [Zestril] 10 mg PO DAILY 08/11/23 07/24/24 History Nitroglycerin Sl Tabs [Nitrostat] 0.4 mg SUBLINGUAL Q5M PRN #25 tab 08/12/23 07/24/24 Rx Evolocumab [Repatha Sureclick] 140 mg SQ Q14D 08/18/23 07/24/24 History Prasugrel [Effient] 10 mg PO DAILY #90 tab 08/21/23 07/24/24 Rx Spironolactone 25 mg PO DAILY 05/11/24 07/24/24 History Escitalopram [Lexapro] 20 mg PO HS 06/09/24 07/24/24 History Gabapentin 300 mg PO BID 06/09/24 07/24/24 History ondansetron HCL [Zofran] 8 mg PO TID PRN 06/09/24 07/24/24 History Atorvastatin [Lipitor] 40 mg PO HS 30 Days #30 tab 06/14/24 07/24/24 Rx Allergies Allergy/AdvReac Type Severity Reaction Status Date / Time Penicillins Allergy Unknown Verified 07/24/24 12:36 Childhood Physical Exam Vitals: Vital Signs Temp Pulse Pulse Resp BP BP Pulse Ox 07/24/24 11:48 97.5 F L 70 16 159/82 97 07/24/24 07:38 97.8 F 59 L 16 152/70 92 L 07/24/24 06:33 98.8 F 07/24/24 04:58 75 16 125/64 100 07/23/24 22:49 89 16 160/91 95 07/23/24 21:01 99.4 F 111 H 20 175/84 98 Intake and Output 07/24/24 07/24/24 07/24/24 06:59 14:59 22:59 Other: Weight 85.729 kg GENERAL: The patient is alert and oriented x3, not in any acute distress. Well developed, well nourished. HEENT: Pupils are round and equally reacting to light. EOMI. No scleral icterus. No conjunctival pallor. Normocephalic, atraumatic. No pharyngeal erythema. No thyromegaly. CARDIOVASCULAR: S1 and S2 present. No murmurs, rubs, or gallops. PULMONARY: Chest is clear to auscultation, no wheezing , no crackles. ABDOMEN: Soft, nontender, nondistended, normoactive bowel sounds. No palpable organomegaly. MUSCULOSKELETAL: No joint swelling or deformity. -EXTREMITIES: No cyanosis, clubbing, or pedal edema. Right foot swelling erythema tenderness with fluctuating area suspicious for abscess in the forefoot. History of amputated first toe NEUROLOGICAL: Gross neurological examination did not reveal any focal deficits. SKIN: No rashes. no petechiae. Results CBC & Chem 7: 07/24/24 06:36 07/24/24 06:36 Labs: Abnormal Lab Results - Last 24 Hours (Table) 07/23/24 07/23/24 07/24/24 Range/Units 21:36 21:36 06:36 WBC 18.93 H 15.59 H (4.50-10.00) 10*3/uL RBC 4.16 L (4.40-5.60) 10*6/uL Hgb 12.0 L (13.0-17.0) g/dL Hct 35.7 L (39.6-50.0) % Plt Count 472 H (140-440) 10*3/uL MPV 9.0 L 9.4 L (9.5-12.2) fL Immature Gran # 0.14 H 0.14 H (0.00-0.04) 10*3/uL Neutrophils # 12.11 H (1.80-7.70) 10*3/uL Neutrophils # (Manual) 9.35 H (1.3-7.7) k/uL Lymphocytes # (Manual) 6.08 H (1.0-4.8) k/uL Monocytes # 1.50 H (0.20-1.00) 10*3/uL Basophils # 0.12 H (0.00-0.10) 10*3/uL Sodium 135 L (137-145) mmol/L Chloride 95 L (98-107) mmol/L BUN 23 H (9-20) mg/dL Glucose 191 H (74-99) mg/dL 07/24/24 Range/Units 06:36 WBC (4.50-10.00) 10*3/uL RBC (4.40-5.60) 10*6/uL Hgb (13.0-17.0) g/dL Hct (39.6-50.0) % Plt Count (140-440) 10*3/uL MPV (9.5-12.2) fL Immature Gran # (0.00-0.04) 10*3/uL Neutrophils # (1.80-7.70) 10*3/uL Neutrophils # (Manual) (1.3-7.7) k/uL Lymphocytes # (Manual) (1.0-4.8) k/uL Monocytes # (0.20-1.00) 10*3/uL Basophils # (0.00-0.10) 10*3/uL Sodium 136 L (137-145) mmol/L Chloride (98-107) mmol/L BUN 23 H (9-20) mg/dL Glucose 164 H (74-99) mg/dL Microbiology - Last 24 Hours (Table) 07/23/24 21:33 Gram Stain - Preliminary Foot - Right Thrombosis Risk Factor Assmnt - Choose All That Apply Any of the Below Risk Factors Present?: Yes Each Factor Represents 1 point: Age 41-60 years Other Risk Factors: No Other congenital or acquired thrombophilia - If yes, enter type in comment: No Thrombosis Risk Factor Assessment Total Risk Factor Score: 1 Thrombosis Risk Factor Assessment Level: Low Risk Assessment and Plan Assessment: Right foot cellulitis at the bed of the amputated large toe with possible abscess. Hx of asthma Coronary artery disease Diabetes mellitus Hypertension Hyperlipidemia Osteoarthritis Sleep apnea Hypothyroidism History of CML Plan: continue with antibiotic as per ID team, IV of vancomycin and cefepimeContinue with IV fluid Ringer lactate Continue with aspirin. Hold Effient in case patient need debridement Resume rest of cardiac medication May need surgical consult Labs and medication were reviewed.. Continue same treatment. Continue with symptomatic treatment. Resume home medication. Monitor labs and vitals. DVT and GI prophylaxis. Further recommendations as per clinical course of the patient DVT prophylaxis: Subcutaneous Lovenox GI Prophylaxis: Pepcid PT/OT: Pending Prognosis is guarded
[2024-07-24] MEDS: ESCITALOPRAM 20 MG TAB PO SCH (21:11)
[2024-07-24] MEDS: GABAPENTIN 300 MG CAP PO SCH (21:11)
[2024-07-24] MEDS: FAMOTIDINE 20 MG/2 ML VIAL IV SCH (21:11)
[2024-07-24] MEDS: ATORVASTATIN 40 MG TAB PO SCH (21:11)
--- NOTE | 2024-07-24 23:11 | P.CONS ---
History of Present Illness - Reason for Consult Consult date: 07/24/24 Osteomyelitis Requesting physician: Adilson Monsalve - Chief Complaint Swelling redness and drainage to the right foot x few days - History of Present Illness Patient is a 58-year-old male with a past medical history significant for Asthma, Coronary Artery Disease (CAD), Cancer, Chest Pain / Angina, Diabetes Mellitus, Hyperlipidemia, Hypertension, Osteoarthritis (OA), Pneumonia, Sleep Apnea/CPAP/BIPAP, Thyroid Disorder, Vascular Disorder, who recently did have a right fifth toe amputation for diabetic foot ulcer/osteomyelitis patient subsequently did have healing of his wound however last Thursday the patient noticed to have a blister at the right fifth toe amputation site which he may have attributed to wearing the shoes subsequently blister has ruptured and drainage of some purulent material also noted him increasing swelling redness of the right lower extremity for the patient was in the hospital patient denies high-grade fever did have some chills and on presentation to the hospital he did have a low-grade fever of 99.4 F patient was tachycardic but not hypotensive or hypoxic no need for supplemental oxygen he did have a white count of 18.93 with a left shift creatinine is 1.13 electrolytes are normal liver enzymes are normal urine has been negative patient did have a chest x-ray negative for acute infiltrate patient did have a x-ray of the right foot shows cortical erosion with amputation site of the fifth metatarsal concerning for osteomyelitis patient was started on vancomycin and meropenem infectious disease was consulted for further management of antibiotic therapy Review of Systems Positive point and negatives has been mentioned in the HPI, complete review of systems was performed and all other systems are negative Past Medical History Past Medical History: Asthma, Coronary Artery Disease (CAD), Cancer, Chest Pain / Angina, Diabetes Mellitus, Hyperlipidemia, Hypertension, Osteoarthritis (OA), Pneumonia, Sleep Apnea/CPAP/BIPAP, Thyroid Disorder, Vascular Disorder Additional Past Medical History / Comment(s): CML- immmunosuppressed, carpal tunnel bilaterally, chronic dry mucosa from the odtbv-hxjfqu-afct disease (especially of the eyes and oral cavity). mild Edema rt lower leg, abdominal hernia, no cpap used since wt loss, sleeps elevated, sepsis after dog bite to hand 2020. seasonal allergies, , recent SOB. [place] seen on stress test per pt. ( 2 weeks ago), c/o left sided neck pain, "it's the vein in that side of my neck", has had some N/V this week, will get nauseated occasionally anyway but seems more frequent this week, recent adm. [facility] for coronary stent, tired, SOB w/exertion History of Any Multi-Drug Resistant Organisms: None Reported Past Surgical History: Heart Catheterization With Stent, Joint Replacement Additional Past Surgical History / Comment(s): BONE MARROW TRANSPLANT 2006, Lt KNEE arthroscopy, left knee REPLACEMENT, SEPTAL SURG, BMTs bilateral ears, hemorrhoidectomy, colonoscopy, vasectomy, aortogram, atherectomy with balloon angioplasty 08/25/17. stent in legs 2020, recent card. cath Past Anesthesia/Blood Transfusion Reactions: No Reported Reaction Additional Past Anesthesia/Blood Transfusion Reaction / Comm: Pt has received blood without reaction. Mom had problems with dyes. Date of Last Stent Placement:: 08/11/23 Past Psychological History: Anxiety Additional Psychological History / Comment(s): Pt resides with his spouse and 2 grown children. He is independent. He uses no assistive device. He has DEDE and his CPAP is broken so he is not using it at this time. He drives. Evrent from [employer]. Was a tobacco smoker briefly more than 20 years ago. No significant alcohol use. No recreational drugs use. No experience. No recent travel history. No animal exposures. Smoking Status: Never smoker Past Alcohol Use History: None Reported Additional Past Alcohol Use History / Comment(s): Quit smoking 25 yrs ago, smoked only socially. Pt stated he has not had alcohol since jan 2024 Past Drug Use History: None Reported, Marijuana Additional Drug Use History / Comment(s): cbd oil, pt aware not to use today - Past Family History Father Family Medical History: Coronary Artery Disease (CAD), Pulmonary Embolus Additional Family Medical History / Comment(s): cabg Mother Family Medical History: Dementia Additional Family Medical History / Comment(s): Mother at age 72yrs. Daughter(s) Family Medical History: Blood Disorder Additional Family Medical History / Comment(s): "they just keep bleeding' both daughters Medications and Allergies Home Medications Medication Instructions Recorded Confirmed Type Aspirin 81 mg PO DAILY 02/02/18 07/24/24 History metFORMIN HCL [Glucophage Xr] 750 mg PO BID 09/26/20 07/24/24 History Furosemide [Lasix] 40 mg PO DAILY 08/10/23 07/24/24 History Potassium Chloride [K-Tab ER] 20 meq PO HS 08/10/23 07/24/24 History Semaglutide [Ozempic] 1 mg SQ WE 08/10/23 07/24/24 History Cyclobenzaprine [Flexeril] 5 mg PO BID PRN 08/11/23 07/24/24 History lisinopriL [Zestril] 10 mg PO DAILY 08/11/23 07/24/24 History Nitroglycerin Sl Tabs [Nitrostat] 0.4 mg SUBLINGUAL Q5M PRN #25 tab 08/12/23 07/24/24 Rx Evolocumab [Repatha Sureclick] 140 mg SQ Q14D 08/18/23 07/24/24 History Prasugrel [Effient] 10 mg PO DAILY #90 tab 08/21/23 07/24/24 Rx Spironolactone 25 mg PO DAILY 05/11/24 07/24/24 History Escitalopram [Lexapro] 20 mg PO HS 06/09/24 07/24/24 History Gabapentin 300 mg PO BID 06/09/24 07/24/24 History ondansetron HCL [Zofran] 8 mg PO TID PRN 06/09/24 07/24/24 History Atorvastatin [Lipitor] 40 mg PO HS 30 Days #30 tab 06/14/24 07/24/24 Rx Allergies Allergy/AdvReac Type Severity Reaction Status Date / Time Penicillins Allergy Unknown Verified 07/24/24 12:36 Childhood Physical Exam Vitals: Vital Signs Temp Pulse Pulse Resp BP BP Pulse Ox 07/24/24 11:48 97.5 F L 70 16 159/82 97 07/24/24 07:38 97.8 F 59 L 16 152/70 92 L 07/24/24 06:33 98.8 F 07/24/24 04:58 75 16 125/64 100 07/23/24 22:49 89 16 160/91 95 07/23/24 21:01 99.4 F 111 H 20 175/84 98 Intake and Output 07/23/24 07/24/24 07/24/24 22:59 06:59 14:59 Other: Weight 85.729 kg 85.729 kg GENERAL DESCRIPTION: Middle-age male up in bed, no distress. No tachypnea or accessory muscle of respiration use. HEENT: Shows Pallor , no scleral icterus. Oral mucous membrane is dry. No pharyngeal erythema or thrush NECK: Trachea central, no thyromegaly. LUNGS: Unlabored breathing. Clear to auscultation anteriorly. No wheeze or crackle. HEART: S1, S2, regular rate and rhythm. No loud murmur ABDOMEN: Soft, no tenderness , guarding or rigidity, no organomegaly EXTREMITIES: Right fifth toe amputation site with wound with some drainage SKIN: No rash, no masses palpable. NEUROLOGICAL: The patient is awake, alert, oriented x3, mood and affect normal. Results CBC & Chem 7: 07/25/24 04:51 07/25/24 04:51 Labs: Abnormal Lab Results - Last 24 Hours (Table) 07/23/24 07/23/24 07/24/24 Range/Units 21:36 21:36 06:36 WBC 18.93 H 15.59 H (4.50-10.00) 10*3/uL RBC 4.16 L (4.40-5.60) 10*6/uL Hgb 12.0 L (13.0-17.0) g/dL Hct 35.7 L (39.6-50.0) % Plt Count 472 H (140-440) 10*3/uL MPV 9.0 L 9.4 L (9.5-12.2) fL Immature Gran # 0.14 H 0.14 H (0.00-0.04) 10*3/uL Neutrophils # 12.11 H (1.80-7.70) 10*3/uL Neutrophils # (Manual) 9.35 H (1.3-7.7) k/uL Lymphocytes # (Manual) 6.08 H (1.0-4.8) k/uL Monocytes # 1.50 H (0.20-1.00) 10*3/uL Basophils # 0.12 H (0.00-0.10) 10*3/uL Sodium 135 L (137-145) mmol/L Chloride 95 L (98-107) mmol/L BUN 23 H (9-20) mg/dL Glucose 191 H (74-99) mg/dL 07/24/24 Range/Units 06:36 WBC (4.50-10.00) 10*3/uL RBC (4.40-5.60) 10*6/uL Hgb (13.0-17.0) g/dL Hct (39.6-50.0) % Plt Count (140-440) 10*3/uL MPV (9.5-12.2) fL Immature Gran # (0.00-0.04) 10*3/uL Neutrophils # (1.80-7.70) 10*3/uL Neutrophils # (Manual) (1.3-7.7) k/uL Lymphocytes # (Manual) (1.0-4.8) k/uL Monocytes # (0.20-1.00) 10*3/uL Basophils # (0.00-0.10) 10*3/uL Sodium 136 L (137-145) mmol/L Chloride (98-107) mmol/L BUN 23 H (9-20) mg/dL Glucose 164 H (74-99) mg/dL Microbiology - Last 24 Hours (Table) 07/23/24 21:33 Gram Stain - Preliminary Foot - Right Assessment and Plan (1) Diabetic infection of right foot Current Visit: No Status: Acute Code(s): E11.628 - TYPE 2 DIABETES MELLITUS WITH OTHER SKIN COMPLICATIONS; L08.9 - LOCAL INFECTION OF THE SKIN AND SUBCUTANEOUS TISSUE, UNSP SNOMED Code(s): 468371170 (2) Penicillin allergy Current Visit: No Status: Acute Code(s): Z88.0 - ALLERGY STATUS TO PENICILLIN SNOMED Code(s): 25194155 (3) Sepsis Current Visit: No Status: Acute Code(s): A41.9 - SEPSIS, UNSPECIFIED ORGANISM SNOMED Code(s): 39550289 Plan: 1patient presented to the hospital with sepsis in this patient who did have fever tachycardia elevated white count meeting criteria for SIRS source is right diabetic foot infection and will need to cover for polymicrobial chago associated with diabetic foot infection 2penicillin allergies that will limit number of antibiotic safety use 3we will treat the patient with vancomycin while watching his kidney function closely however switch meropenem to cefepime and Flagyl 4-Patient will likely need a PICC line for outpatient IV antibiotic therapy Await vascular surgery evaluation for possible debridement and deep culture We will follow on clinical condition and cultures to further adjust medication if needed Thank you for this consultation we will follow the patient along with you Dictation was produced using [employer] dictation software. please excuse any grammatical, word or spelling errors. Time with Patient: Greater than 30
[2024-07-25 07:56] LABS: Glucose,Whole Blood 140 mg/dL (70-110)
[2024-07-25 08:43] LABS: BUN/Creat Ratio 18.78 Ratio (12.00-20.00); Blood Urea Nitrogen 16.9 mg/dL (9.0-27.0); Calcium 8.8 mg/dL (8.7-10.3); Carbon Dioxide 22.7 mmol/L (21.6-31.8); Chloride 106 mmol/L (96-109); Glucose 110 mg/dL (70-110); Potassium 4.3 mmol/L (3.5-5.5); Sodium 138 mmol/L (135-145)
[2024-07-25 08:50] LABS: Basophils % (A) 0.8 %; Eosinophils # (A) 0.22 X 10*3/uL (0.04-0.35); Eosinophils % (A) 1.8 %; HCT 34.7 % (39.6-50.0); HGB 11.4 g/dL (13.0-17.0); Lymphocytes % (A) 41.7 %; MCH 28.6 pg (27.0-32.0); MCHC 32.9 g/dL (32.0-37.0); MCV 87.2 FL (80.0-97.0); Mean Platelet Volume 9.2 FL (9.5-12.2); Monocytes # (A) 1.25 X 10*3/uL (0.20-1.00); Monocytes % (A) 10.4 %; NRBC Per 100 WBC 0 X 10*3/uL (0.00-0.01); Neutrophils % (A) 44.4 %; Platelet Count 424 X 10*3/uL (140-440); RBC 3.98 X 10*6/uL (4.40-5.60); RDW 16.8 % (11.5-14.5); WBC 11.98 X 10*3/uL (4.50-10.00)
[2024-07-25] MEDS: ASPIRIN 81 MG PO SCH (08:57)
[2024-07-25] MEDS: lisinopriL 10 MG TAB PO SCH (08:58)
[2024-07-25] MEDS: FUROSEMIDE 40 MG TAB PO SCH (08:58)
[2024-07-25] MEDS: SPIRONOLACTONE 25 MG TAB PO SCH (08:58)
--- NOTE | 2024-07-25 09:28 | P.GSCN ---
History of Present Illness Consult date: 07/25/24 Reason for Consult: History toe amputation, osteomyelitis Requesting physician: Adilson Monsalve History of present illness: This is a pleasant 58-year-old male with a history of diabetes mellitus, previous gangrene of fifth toe who underwent amputation on 06/13/[address] Fall. He also has history of right lower extremity peripheral arterial disease status post right SFA atherectomy and balloon angioplasty done in April of this year. Patient states wound had healed, recently he was wearing no sock with the boot and developed a blister which has become infected. He came in for further evaluation sent in by wound care clinic was noted to have osteomyelitis on foot x-ray. Patient states he was having discomfort along the lateral aspect of his foot and plantar aspect. He states pain has improved. He was started on IV antibiotics. He is not having any further drainage. States prior to admission he was having some purulent drainage. Currently all scabbed. He denied any fevers or chills. Review of Systems A 14 point review systems was completed all pertinent positives and negatives as stated in the HPI. 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 mild Edema rt lower leg, abdominal hernia, no cpap used since wt loss, sleeps elevated, sepsis after dog bite to hand 2019. seasonal allergies, , recent SOB. [place] seen on stress test per pt. ( 2 weeks ago), c/o left sided neck pain, "it's the vein in that side of my neck", has had some N/V this week, will get nauseated occasionally anyway but seems more frequent this week, recent adm. [facility] for coronary stent, tired, SOB w/exertion History of Any Multi-Drug Resistant Organisms: None Reported Past Surgical History: Heart Catheterization With Stent, Joint Replacement Additional Past Surgical History / Comment(s): BONE MARROW TRANSPLANT 2006, Lt KNEE arthroscopy, left knee REPLACEMENT, SEPTAL SURG, BMTs bilateral ears, hemorrhoidectomy, colonoscopy, vasectomy, aortogram, atherectomy with balloon angioplasty 08/25/17. stent in legs 2020, recent card. cath Past Anesthesia/Blood Transfusion Reactions: No Reported Reaction Additional Past Anesthesia/Blood Transfusion Reaction / Comm: Pt has received blood without reaction. Mom had problems with dyes. Date of Last Stent Placement:: 08/11/23 Past Psychological History: Anxiety Additional Psychological History / Comment(s): Pt resides with his spouse and 2 grown children. He is independent. He uses no assistive device. He has DEDE and his CPAP is broken so he is not using it at this time. He drives. 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 Was a tobacco smoker briefly more than 20 years ago. No significant alcohol use. No recreational drugs use. No experience. No recent travel history. No animal exposures. Smoking Status: Never smoker Past Alcohol Use History: None Reported Additional Past Alcohol Use History / Comment(s): Quit smoking 25 yrs ago, smoked only socially. Pt stated he has not had alcohol since jan 2024 Past Drug Use History: None Reported, Marijuana Additional Drug Use History / Comment(s): cbd oil, pt aware not to use today - Past Family History Father Family Medical History: Coronary Artery Disease (CAD), Pulmonary Embolus Additional Family Medical History / Comment(s): cabg Mother Family Medical History: Dementia Additional Family Medical History / Comment(s): Mother at age 72yrs. Daughter(s) Family Medical History: Blood Disorder Additional Family Medical History / Comment(s): "they just keep bleeding' both d aughters Medications and Allergies Home Medications Medication Instructions Recorded Confirmed Type Aspirin 81 mg PO DAILY 02/02/18 07/24/24 History metFORMIN HCL [Glucophage Xr] 750 mg PO BID 09/26/20 07/24/24 History Furosemide [Lasix] 40 mg PO DAILY 08/10/23 07/24/24 History Potassium Chloride [K-Tab ER] 20 meq PO HS 08/10/23 07/24/24 History Semaglutide [Ozempic] 1 mg SQ WE 08/10/23 07/24/24 History Cyclobenzaprine [Flexeril] 5 mg PO BID PRN 08/11/23 07/24/24 History lisinopriL [Zestril] 10 mg PO DAILY 08/11/23 07/24/24 History Nitroglycerin Sl Tabs [Nitrostat] 0.4 mg SUBLINGUAL Q5M PRN #25 tab 08/12/23 07/24/24 Rx Evolocumab [Repatha Sureclick] 140 mg SQ Q14D 08/18/23 07/24/24 History Prasugrel [Effient] 10 mg PO DAILY #90 tab 08/21/23 07/24/24 Rx Spironolactone 25 mg PO DAILY 05/11/24 07/24/24 History Escitalopram [Lexapro] 20 mg PO HS 06/09/24 07/24/24 History Gabapentin 300 mg PO BID 06/09/24 07/24/24 History ondansetron HCL [Zofran] 8 mg PO TID PRN 06/09/24 07/24/24 History Atorvastatin [Lipitor] 40 mg PO HS 30 Days #30 tab 06/14/24 07/24/24 Rx Allergies Allergy/AdvReac Type Severity Reaction Status Date / Time Penicillins Allergy Unknown Verified 07/24/24 12:36 Childhood Surgical - Exam Vital Signs Temp Pulse Resp BP Pulse Ox 99.4 F 111 H 20 175/84 98 07/23/24 21:01 07/23/24 21:01 07/23/24 21:01 07/23/24 21:01 07/23/24 21:01 General appearance: The patient is alert, oriented, appears in no acute distress. HET: Head is normocephalic and atraumatic. Pupils are equal and reactive. Neck: Supple. Heart: Regular. Lungs: Equal expansion, normal respiratory effort. Abdomen: Soft, nondistended. Extremities: Right foot previous fifth toe amputation surgical incision healed, wound to lateral aspect of foot currently scabbed, no drainage noted. Surrounding erythema. Good capillary refill, warm to the touch. Palpable femoral pulses, DP and PT Doppler signal. Neurological: No focal deficits. Strength and sensation are grossly intact. Results - Labs 07/25/24 04:51 07/25/24 04:51 Abnormal Lab Results - Last 24 Hours (Table) 07/24/24 07/24/24 Range/Units 06:36 06:36 WBC 15.59 H (4.50-10.00) 10*3/uL RBC 4.16 L (4.40-5.60) 10*6/uL Hgb 12.0 L (13.0-17.0) g/dL Hct 35.7 L (39.6-50.0) % MPV 9.4 L (9.5-12.2) fL Immature Gran # 0.14 H (0.00-0.04) 10*3/uL Neutrophils # (Manual) 9.35 H (1.3-7.7) k/uL Lymphocytes # (Manual) 6.08 H (1.0-4.8) k/uL Sodium 136 L (137-145) mmol/L BUN 23 H (9-20) mg/dL Glucose 164 H (74-99) mg/dL Microbiology - Last 24 Hours (Table) 07/23/24 21:36 Blood Culture - Preliminary Blood 07/23/24 21:33 Gram Stain - Preliminary Foot - Right Wound Culture - Preliminary Strep agalactiae - (group b) Presumptive Staph aureus Diabetes panel 07/24/24 Range/Units 06:36 Sodium 136 L (137-145) mmol/L Potassium 4.0 (3.5-5.1) mmol/L Chloride 101 (98-107) mmol/L Carbon Dioxide 26 (22-30) mmol/L BUN 23 H (9-20) mg/dL Creatinine 1.01 (0.66-1.25) mg/dL Glucose 164 H (74-99) mg/dL Calcium 9.2 (8.4-10.2) mg/dL AST 26 (17-59) U/L ALT 26 (4-49) U/L Alkaline Phosphatase 106 (38-126) U/L Total Protein 6.4 (6.3-8.2) g/dL Albumin 3.6 (3.5-5.0) g/dL Calcium panel 07/24/24 Range/Units 06:36 Calcium 9.2 (8.4-10.2) mg/dL Albumin 3.6 (3.5-5.0) g/dL Pituitary panel 07/24/24 Range/Units 06:36 Sodium 136 L (137-145) mmol/L Potassium 4.0 (3.5-5.1) mmol/L Chloride 101 (98-107) mmol/L Carbon Dioxide 26 (22-30) mmol/L BUN 23 H (9-20) mg/dL Creatinine 1.01 (0.66-1.25) mg/dL Glucose 164 H (74-99) mg/dL Calcium 9.2 (8.4-10.2) mg/dL Adrenal panel 07/24/24 Range/Units 06:36 Sodium 136 L (137-145) mmol/L Potassium 4.0 (3.5-5.1) mmol/L Chloride 101 (98-107) mmol/L Carbon Dioxide 26 (22-30) mmol/L BUN 23 H (9-20) mg/dL Creatinine 1.01 (0.66-1.25) mg/dL Glucose 164 H (74-99) mg/dL Calcium 9.2 (8.4-10.2) mg/dL Total Bilirubin 0.5 (0.2-1.3) mg/dL AST 26 (17-59) U/L ALT 26 (4-49) U/L Alkaline Phosphatase 106 (38-126) U/L Total Protein 6.4 (6.3-8.2) g/dL Albumin 3.6 (3.5-5.0) g/dL Assessment and Plan Assessment: 1. Osteomyelitis fifth metatarsal 2. Right foot diabetic wound 3. History of gangrene right fifth toe status post amputation 4. History of right lower extremity peripheral arterial disease status post revascularization 5. Diabetes Plan: 1. Continue with antibiotics per recommendations from infectious disease 2. No plans at this time for excisional debridement, will continue to follow closely and give antibiotics trial 3. Further recommendations forthcoming per clinical course Thank you for this consultation, we will continue to follow. The impression and plan of care has been dictated as directed. Dr. Lizama I performed a history and examination of this patient, discussed the same with the dictator. I agree with the dictator's note ,documented as a scribe. Any additional findings or plans will be noted.
--- NOTE | 2024-07-25 11:00 | P.PN ---
Subjective This is a pleasant 58 years old male with past medical history of multiple medical problems including depression, coronary artery disease, peripheral artery disease s/p amputation of the right first toe from osteomyelitis and gangrene. Presents because of swelling erythema and tenderness signs for inflammation of the lateral distal forefoot. Patient states this started Thursday he does not know how it started but thinks it from the boot. He denies any other specific symptoms. No chest pain or dyspnea. No neurological symptoms. No GI/ symptoms. No fever chills Patient denies smoking alcohol or illicit drugs. Vital stable afebrile. He has leukocytosis 18 and 15.5. Rest of BMP LFT is unremarkable. Influenza and COVID were undetectable Foot x-ray showed cortical erosion and complications side of the first metatarsal bone suspicious for osteomyelitis Wound cultures growing Streptococcus agalactiae and Staph aureus final sensitivities pending Patient currently on IV cefepime and IV vancomycin and Ringer lactate 100 mL/h 07/25 Pain controlled No new complaint Sleepy Getting antibiotic and IV fluid as per ID team Objective - Vital Signs Vital signs: Vital Signs Temp 97.7 F 07/25/24 07:31 Pulse 68 07/25/24 07:31 Resp 16 07/25/24 07:31 BP 143/66 07/25/24 07:31 Pulse Ox 96 07/25/24 07:31 FiO2 Intake & Output 07/24/24 07/25/24 07/25/24 18:59 06:59 18:59 Intake Total 100 1050 Balance 100 1050 Intake: Intake, IV Titration 100 1050 Amount Cefepime 2 gm In Dextrose 100 100 5% in Water 100 ml @ 25 mls/hr IVPB Q8HR JADEN Rx#: [id number] Lactated Ringers 1,000 ml 700 @ 100 mls/hr IV .Q10H JADEN Rx#:[id number] Vancomycin 1,250 mg In 250 Sodium Chloride 0.9% 250 ml @ 125 mls/hr IVPB Q12H JADEN Rx#:[id number] Other: # Voids 2 - Exam GENERAL: The patient is alert and oriented x3, not in any acute distress. Well developed, well nourished. HEENT: Pupils are round and equally reacting to light. EOMI. No scleral icterus. No conjunctival pallor. Normocephalic, atraumatic. No pharyngeal erythema. No thyromegaly. CARDIOVASCULAR: S1 and S2 present. No murmurs, rubs, or gallops. PULMONARY: Chest is clear to auscultation, no wheezing , no crackles. ABDOMEN: Soft, nontender, nondistended, normoactive bowel sounds. No palpable organomegaly. MUSCULOSKELETAL: No joint swelling or deformity. -EXTREMITIES: No cyanosis, clubbing, or pedal edema. Right foot swelling erythema tenderness with fluctuating area suspicious for abscess in the forefoot. History of amputated first toe NEUROLOGICAL: Gross neurological examination did not reveal any focal deficits. SKIN: No rashes. no petechiae. - Labs CBC & Chem 7: 07/25/24 04:51 07/25/24 04:51 Labs: Abnormal Lab Results - Last 24 Hours (Table) 07/25/24 07/25/24 Range/Units 04:51 07:49 WBC 11.98 H (4.50-10.00) X 10*3/uL RBC 3.98 L (4.40-5.60) X 10*6/uL Hgb 11.4 L (13.0-17.0) g/dL Hct 34.7 L (39.6-50.0) % RDW 16.8 H (11.5-14.5) % MPV 9.2 L (9.5-12.2) FL Immature Gran # 0.11 H (0.00-0.04) X 10*3/uL Monocytes # 1.25 H (0.20-1.00) X 10*3/uL POC Glucose (mg/dL) 140 H (70-110) mg/dL Microbiology - Last 24 Hours (Table) 07/23/24 21:36 Blood Culture - Preliminary Blood 07/23/24 21:33 Gram Stain - Preliminary Foot - Right Wound Culture - Preliminary Strep agalactiae - (group b) Presumptive Staph aureus Assessment and Plan Assessment: Right foot cellulitis at the bed of the amputated large toe with possible abscess. Hx of asthma Coronary artery disease Diabetes mellitus Hypertension Hyperlipidemia Osteoarthritis Sleep apnea Hypothyroidism History of CML Plan: continue with antibiotic as per ID team, IV of vancomycin and cefepimeContinue with IV fluid Ringer lactate Continue with aspirin. Hold Effient in case patient need debridement Resume rest of cardiac medication May need surgical consult Labs and medication were reviewed.. Continue same treatment. Continue with symptomatic treatment. Resume home medication. Monitor labs and vitals. DVT and GI prophylaxis. Further recommendations as per clinical course of the patient DVT prophylaxis: Subcutaneous Lovenox GI Prophylaxis: Pepcid PT/OT: Pending Prognosis is guarded
[2024-07-25] MEDS ORDERED: DEXTROSE 50% SYRINGE 50 ML IVP PRN ×2 (12:49)
[2024-07-25] MEDS: INSULIN LISPRO (HumaLOG) 100 UNIT/ML 10 mL VL SQ SCH (17:10)
[2024-07-25 17:18] LABS: Glucose,Whole Blood 121 mg/dL (70-110)
[2024-07-25 21:20] LABS: Glucose,Whole Blood 134 mg/dL (70-110)
[2024-07-25] MEDS: FAMOTIDINE 20 MG TAB PO SCH (22:05)
--- NOTE | 2024-07-25 22:06 | P.PN ---
Subjective Progress Note Date: 07/25/24 Principal diagnosis: Reason for follow-up is right diabetic foot infection/osteomyelitis Patient is a 58-year-old male with a past medical history significant for Asthma, Coronary Artery Disease (CAD), Cancer, Chest Pain / Angina, Diabetes Mellitus, Hyperlipidemia, Hypertension, Osteoarthritis (OA), Pneumonia, Sleep Apnea/CPAP/BIPAP, Thyroid Disorder, Vascular Disorder, who recently did have a right fifth toe amputation for diabetic foot ulcer/osteomyelitis presenting the hospital with right foot fifth toe amputation site incision reopening with a blister and drainage with abnormal x-ray suspicious for osteomyelitis. On today's evaluation that is 07/25/2024, Patient is afebrile this morning patient denies having any chest pain shortness of breath or cough, the patient is currently on room air, patient denies any abdominal pain no diarrhea no nausea no vomiting, pain to the right foot is currently controlled. Patient white count is down to 11.98, creatinine 0.9 cultures growing Streptococcus agalactiae and Staph aureus Objective - Vital Signs Vital signs: Vital Signs Temp 97.5 F L 07/25/24 11:58 Pulse 69 07/25/24 11:58 Resp 16 07/25/24 11:58 BP 133/69 07/25/24 11:58 Pulse Ox 96 07/25/24 11:58 FiO2 Intake & Output 07/24/24 07/25/24 07/25/24 18:59 06:59 18:59 Intake Total 100 1050 Balance 100 1050 Intake: Intake, IV Titration 100 1050 Amount Cefepime 2 gm In Dextrose 100 100 5% in Water 100 ml @ 25 mls/hr IVPB Q8HR JADEN Rx#: [id number] Lactated Ringers 1,000 ml 700 @ 100 mls/hr IV .Q10H JADEN Rx#:[id number] Vancomycin 1,250 mg In 250 Sodium Chloride 0.9% 250 ml @ 125 mls/hr IVPB Q12H JADEN Rx#:[id number] Other: Voiding Method Toilet # Voids 2 - Exam GENERAL DESCRIPTION: Middle-age male lying in bed in no distress RESPIRATORY SYSTEM: Unlabored breathing , decreased breath sounds at bases HEART: S1 S2 regular rate and rhythm , ABDOMEN: Soft , no tenderness EXTREMITIES: Right foot lateral border superficial wound with some drainage - Labs CBC & Chem 7: 07/25/24 04:51 07/25/24 04:51 Labs: Abnormal Lab Results - Last 24 Hours (Table) 07/25/24 07/25/24 Range/Units 04:51 07:49 WBC 11.98 H (4.50-10.00) X 10*3/uL RBC 3.98 L (4.40-5.60) X 10*6/uL Hgb 11.4 L (13.0-17.0) g/dL Hct 34.7 L (39.6-50.0) % RDW 16.8 H (11.5-14.5) % MPV 9.2 L (9.5-12.2) FL Immature Gran # 0.11 H (0.00-0.04) X 10*3/uL Monocytes # 1.25 H (0.20-1.00) X 10*3/uL POC Glucose (mg/dL) 140 H (70-110) mg/dL Microbiology - Last 24 Hours (Table) 07/23/24 21:36 Blood Culture - Preliminary Blood 07/23/24 21:33 Gram Stain - Preliminary Foot - Right Wound Culture - Preliminary Strep agalactiae - (group b) Presumptive Staph aureus Assessment and Plan (1) Diabetic infection of right foot Current Visit: No Status: Acute Code(s): E11.628 - TYPE 2 DIABETES MELLITUS WITH OTHER SKIN COMPLICATIONS; L08.9 - LOCAL INFECTION OF THE SKIN AND SUBCUTANEOUS TISSUE, UNSP SNOMED Code(s): 954970885 (2) Penicillin allergy Current Visit: No Status: Acute Code(s): Z88.0 - ALLERGY STATUS TO PENICILLIN SNOMED Code(s): 79102307 (3) Sepsis Current Visit: No Status: Acute Code(s): A41.9 - SEPSIS, UNSPECIFIED ORGANISM SNOMED Code(s): 05843012 Plan: 1patient presented to the the hospital with sepsis in this patient who did have fever tachycardia elevated white count meeting criteria for SIRS source is right diabetic foot infection and will need to cover for polymicrobial chago associated with diabetic foot infection 2penicillin allergies that will limit number of antibiotic safety use 3patient is currently being empirically treated with vancomycin cefepime and Flagyl while waiting for the culture to finalize determine discharge antibiotics Dictation was produced using [employer] dictation software. please excuse any gram matical, word or spelling errors.
[2024-07-25] MEDS: ceFAZolin 2 GM in DEXTROSE 5% IN WATER 50 ML IVPB SCH (23:38)
[2024-07-26 07:36] LABS: Glucose,Whole Blood 147 mg/dL (70-110)
--- NOTE | 2024-07-26 09:29 | P.PN ---
Subjective Progress Note Date: 07/26/24 Patient doing well. States his wound is stable. Objective - Vital Signs Vital signs: Vital Signs Temp 98.4 F 07/26/24 07:49 Pulse 66 07/26/24 07:49 Resp 17 07/26/24 07:49 BP 152/66 07/26/24 07:49 Pulse Ox 97 07/26/24 07:49 FiO2 Intake & Output 07/25/24 07/26/24 07/26/24 18:59 06:59 18:59 Intake Total 1690 Balance 1690 Intake: Intake, IV Titration 1100 Amount Lactated Ringers 1,000 ml 1000 @ 100 mls/hr IV .Q10H JADEN Rx#:[id number] ceFAZolin 2 gm In 100 Dextrose 5% in Water 50 ml @ 100 mls/hr IVPB Q8HR JADEN Rx#:[id number] Oral 590 Other: Voiding Method Toilet Toilet # Voids 1 2 - Exam Good capillary refill. Erythema noted at the lateral aspect of the foot. Minimal drainage - Constitutional General appearance: Present: no acute distress - Labs CBC & Chem 7: 07/25/24 04:51 07/25/24 04:51 Labs: Abnormal Lab Results - Last 24 Hours (Table) 07/25/24 07/25/24 07/26/24 Range/Units 17:16 21:18 07:34 POC Glucose (mg/dL) 121 H 134 H 147 H (70-110) mg/dL Microbiology - Last 24 Hours (Table) 07/23/24 21:36 Blood Culture - Preliminary Blood 07/23/24 21:33 Anaerobic Culture - Preliminary Foot - Right 07/23/24 21:33 Gram Stain - Final Foot - Right Wound Culture - Final Strep agalactiae - (group b) Staphylococcus aureus Assessment and Plan Assessment: 1. Osteomyelitis fifth metatarsal 2. Right foot diabetic wound 3. History of gangrene right fifth toe status post amputation 4. History of right lower extremity peripheral arterial disease status post revascularization 5. Diabetes Plan: Continue IV antibiotics If swelling worsens or pain increases will perform incision and drainage. No surgical intervention at this time.
[2024-07-26] MEDS ORDERED: VANCOMYCIN TROUGH DUE 1 EACH MISC MISCELLANE ONE (10:00)
--- NOTE | 2024-07-26 11:22 | US ---
EXAMINATION TYPE: US venous doppler duplex LE RT DATE OF EXAM: 07/26/2024 11:10 AM COMPARISON: NONE CLINICAL INDICATION: Male, 58 years old with history of warm, infected foot; Pain TECHNIQUE: The lower extremity deep venous system is examined utilizing real time linear array sonog ed with graded compression, color doppler sonography, and spectral doppler. SIDE PERFORMED: Right FINDINGS: VESSELS IMAGED: Common Femoral Vein Deep Femoral Vein Greater Saphenous Vein * Femoral Vein Popliteal Vein Small Saphenous Vein * Proximal Calf Veins Posterior tibial veins (* superficial vessels) Right Leg: Negative for DVT, Color Doppler imaging shows patency of the vessels. Spectral waveforms are within normal limits. IMPRESSION: No evidence for DVT within the right lower extremity. [facility], , 07/26/2024 11:20 AM
[2024-07-26 12:18] LABS: Glucose,Whole Blood 181 mg/dL (70-110)
--- NOTE | 2024-07-26 15:55 | P.PN ---
Subjective Progress Note Date: 07/26/24 Principal diagnosis: Reason for follow-up is right diabetic foot infection/osteomyelitis Patient is a 58-year-old male with a past medical history significant for Asthma, Coronary Artery Disease (CAD), Cancer, Chest Pain / Angina, Diabetes Mellitus, Hyperlipidemia, Hypertension, Osteoarthritis (OA), Pneumonia, Sleep Apnea/CPAP/BIPAP, Thyroid Disorder, Vascular Disorder, who recently did have a right fifth toe amputation for diabetic foot ulcer/osteomyelitis presenting the hospital with right foot fifth toe amputation site incision reopening with a blister and drainage with abnormal x-ray suspicious for osteomyelitis. On today's evaluation that is 07/26/2024,the patient denies any fever or any chills, patient is breathing comfortably on room air, the patient denies chest pain shortness of breath and no significant cough, patient denies abdominal pain, no nausea vomiting or diarrhea. Pain to the right foot is currently controlled. Patient did have slightly to 56 CRP is 3.0 hemoglobin A1c 8.0 blood culture negative Objective - Vital Signs Vital signs: Vital Signs Temp 98.4 F 07/26/24 07:49 Pulse 66 07/26/24 07:49 Resp 17 07/26/24 07:49 BP 152/66 07/26/24 07:49 Pulse Ox 97 07/26/24 07:49 FiO2 Intake & Output 07/25/24 07/26/24 07/26/24 18:59 06:59 18:59 Intake Total 1690 480 Balance 1690 480 Intake: Intake, IV Titration 1100 Amount Lactated Ringers 1,000 ml 1000 @ 100 mls/hr IV .Q10H JADEN Rx#:[id number] ceFAZolin 2 gm In 100 Dextrose 5% in Water 50 ml @ 100 mls/hr IVPB Q8HR JADEN Rx#:[id number] Oral 590 480 Other: Voiding Method Toilet Toilet # Voids 1 2 - Exam GENERAL DESCRIPTION: Middle-age male lying in bed in no distress RESPIRATORY SYSTEM: Unlabored breathing , decreased breath sounds at bases HEART: S1 S2 regular rate and rhythm , ABDOMEN: Soft , no tenderness EXTREMITIES: Right foot lateral border superficial wound with some drainage - Labs CBC & Chem 7: 07/25/24 04:51 07/25/24 04:51 Labs: Abnormal Lab Results - Last 24 Hours (Table) 04/07/25/24 07/26/24 Range/Units 17:16 21:18 05:29 POC Glucose (mg/dL) 121 H 134 H (70-110) mg/dL Hemoglobin A1c 8.0 H (<=6.0) % C-Reactive Protein (0.00-0.80) mg/dL 07/26/24 07/26/24 07/26/24 Range/Units 05:29 07:34 12:16 POC Glucose (mg/dL) 147 H 181 H (70-110) mg/dL Hemoglobin A1c (<=6.0) % C-Reactive Protein 3.00 H (0.00-0.80) mg/dL Microbiology - Last 24 Hours (Table) 07/23/24 21:36 Blood Culture - Preliminary Blood 07/23/24 21:33 Anaerobic Culture - Preliminary Foot - Right 07/23/24 21:33 Gram Stain - Final Foot - Right Wound Culture - Final Strep agalactiae - (group b) Staphylococcus aureus Assessment and Plan (1) Diabetic infection of right foot Current Visit: No Status: Acute Code(s): E11.628 - TYPE 2 DIABETES MELLITUS WITH OTHER SKIN COMPLICATIONS; L08.9 - LOCAL INFECTION OF THE SKIN AND SUBCUTANEOUS TISSUE, UNSP SNOMED Code(s): 445887374 (2) Penicillin allergy Current Visit: No Status: Acute Code(s): Z88.0 - ALLERGY STATUS TO PENICILLIN SNOMED Code(s): 02929546 (3) Sepsis Current Visit: No Status: Acute Code(s): A41.9 - SEPSIS, UNSPECIFIED ORGANISM SNOMED Code(s): 08628833 Plan: 1patient presented to the the hospital with sepsis in this patient who did have fever tachycardia elevated white count meeting criteria for SIRS source is right diabetic foot infection and will need to cover for polymicrobial chago associate d with diabetic foot infection 2penicillin allergies that will limit number of antibiotic safety use 3patient culture have been finalized with MSSA, strep, antibiotic has been switched over to cefazolin 2 g every 8 hour that he will need for at least 6 weeks on discharge Dictation was produced using [employer] dictation software. please excuse any grammatical, word or spelling errors. Time with Patient: Less than 30
[2024-07-26 17:10] LABS: Glucose,Whole Blood 165 mg/dL (70-110)
--- NOTE | 2024-07-26 18:12 | P.PN ---
Subjective This is a pleasant 58 years old male with past medical history of multiple medical problems including depression, coronary artery disease, peripheral artery disease s/p amputation of the right first toe from osteomyelitis and gangrene. Presents because of swelling erythema and tenderness signs for inflammation of the lateral distal forefoot. Patient states this started Thursday he does not know how it started but thinks it from the boot. He denies any other specific symptoms. No chest pain or dyspnea. No neurological symptoms. No GI/ symptoms. No fever chills Patient denies smoking alcohol or illicit drugs. Vital stable afebrile. He has leukocytosis 18 and 15.5. Rest of BMP LFT is unremarkable. Influenza and COVID were undetectable Foot x-ray showed cortical erosion and complications side of the first metatarsal bone suspicious for osteomyelitis Wound cultures growing Streptococcus agalactiae and Staph aureus final sensitivities pending Patient currently on IV cefepime and IV vancomycin and Ringer lactate 100 mL/h 07/25 Pain controlled No new complaint Sleepy Getting antibiotic and IV fluid as per ID team 07/26 Patient presents with right foot infection, dressing in place Pain controlled Little bit warm like compared to the left side Continue antibiotic check ultrasound of the right leg Objective - Vital Signs Vital signs: Vital Signs Temp 98.4 F 07/26/24 07:49 Pulse 66 07/26/24 07:49 Resp 17 07/26/24 07:49 BP 152/66 07/26/24 07:49 Pulse Ox 97 07/26/24 07:49 FiO2 Intake & Output 07/25/24 07/26/24 07/26/24 18:59 06:59 18:59 Intake Total 1690 480 Balance 1690 480 Intake: Intake, IV Titration 1100 Amount Lactated Ringers 1,000 ml 1000 @ 100 mls/hr IV .Q10H JADEN Rx#:[id number] ceFAZolin 2 gm In 100 Dextrose 5% in Water 50 ml @ 100 mls/hr IVPB Q8HR JADEN Rx#:[id number] Oral 590 480 Other: Voiding Method Toilet Toilet # Voids 1 2 - Exam GENERAL: The patient is alert and oriented x3, not in any acute distress. Well developed, well nourished. HEENT: Pupils are round and equally reacting to light. EOMI. No scleral icterus. No conjunctival pallor. Normocephalic, atraumatic. No pharyngeal erythema. No thyromegaly. CARDIOVASCULAR: S1 and S2 present. No murmurs, rubs, or gallops. PULMONARY: Chest is clear to auscultation, no wheezing , no crackles. ABDOMEN: Soft, nontender, nondistended, normoactive bowel sounds. No palpable organomegaly. MUSCULOSKELETAL: No joint swelling or deformity. -EXTREMITIES: No cyanosis, clubbing, or pedal edema. Right foot swelling erythema tenderness with fluctuating area suspicious for abscess in the forefoot. History of amputated first toe NEUROLOGICAL: Gross neurological examination did not reveal any focal deficits. SKIN: No rashes. no petechiae. - Labs CBC & Chem 7: 07/25/24 04:51 07/25/24 04:51 Labs: Abnormal Lab Results - Last 24 Hours (Table) 07/25/24 07/25/24 07/26/24 Range/Units 17:16 21:18 05:29 POC Glucose (mg/dL) 121 H 134 H (70-110) mg/dL Hemoglobin A1c 8.0 H (<=6.0) % 07/26/24 Range/Units 07:34 POC Glucose (mg/dL) 147 H (70-110) mg/dL Hemoglobin A1c (<=6.0) % Microbiology - Last 24 Hours (Table) 07/23/24 21:36 Blood Culture - Preliminary Blood 07/23/24 21:33 Anaerobic Culture - Preliminary Foot - Right 07/23/24 21:33 Gram Stain - Final Foot - Right Wound Culture - Final Strep agalactiae - (group b) Staphylococcus aureus Assessment and Plan Assessment: Right foot cellulitis at the bed of the amputated large toe with possible abscess. Hx of asthma Coronary artery disease Diabetes mellitus Hypertension Hyperlipidemia Osteoarthritis Sleep apnea Hypothyroidism History of CML Plan: continue with antibiotic as per ID team, IV of vancomycin and cefepimeContinue with IV fluid Ringer lactate Continue with aspirin. Hold Effient in case patient need debridement Resume rest of cardiac medication May need surgical consult Labs and medication were reviewed.. Continue same treatment. Continue with symptomatic treatment. Resume home medication. Monitor labs and vitals. DVT and GI prophylaxis. Further recommendations as per clinical course of the patient DVT prophylaxis: Subcutaneous Lovenox GI Prophylaxis: Pepcid PT/OT: Pending Prognosis is guarded
[2024-07-26 20:17] LABS: Glucose,Whole Blood 155 mg/dL (70-110)
[2024-07-27 07:15] LABS: Glucose,Whole Blood 136 mg/dL (70-110)
--- NOTE | 2024-07-27 10:38 | CDI ---
Documentation Clarification Form Date: 07/27/2024 09:48:41 AM From: Yamilex Hollis RN, CCDS Phone: [phone] Admit Date: 07/23/2024 10:49:00 PM Patient Name: Alber Davison Visit Number: [id number] Discharge Date: ATTENTION: The Clinical Documentation Specialists (CDI) and [facility] Coding Staff appreciate your assistance in clarifying documentation. Please respond to the clarification below the line at the bottom and electronically sign. The CDI & [facility] Coding staff will review the response and follow-up if needed. Please note: Queries are made part of the Legal Health Record. If you have any questions, please contact the author of this message via ITS. Shiv E Sheet Sepsis is documented in the ID Consult and subsequent progress notes which may lack sufficient clinical evidence/support in the medical record. Additional clarification is requested. History/Risk Factors: CML and is immunocompromised. Diabetes Mellitus, Hyperlipidemia, Hypertension, Osteoarthritis (OA), Clinical Indicators: 58-year-old male present with swelling redness and drainage to the right foot. He had a right fifth toe amputation for diabetic foot ulcer/osteomyelitis and healing. He developed a blister present with temp 99.4 heart rate 111 WBC 18.93 Neutrophils 12.11 07/24 ID Consult: presented to the hospital with sepsis in this patient who did have fever tachycardia elevated white count meeting criteria for SIRS source is right diabetic foot infection and will need to cover for polymicrobial chago associated with diabetic foot infection. Treatment: Cefazolin 2 GM IVPB Flagyl 500 MG PO TID After work up and study, please clarify which diagnosis is most appropriate? [ ] Sepsis ruled out [ x ] Sepsis is a valid diagnosis as evidence by the following: (Please add rationale): _He has low-grade fever 99.4 on admission tachycardia 111 and 89 and tachypnea 20 as well as leukocytosis 18.9 [ ] Other, please specify [ ] Unable to determine (Template Last Reviewed: March 2023) MTDD
[2024-07-27 12:12] LABS: Glucose,Whole Blood 196 mg/dL (70-110)
[2024-07-27 17:15] LABS: Glucose,Whole Blood 108 mg/dL (70-110)
[2024-07-27 20:55] LABS: Glucose,Whole Blood 102 mg/dL (70-110)
[2024-07-28 07:09] LABS: Glucose,Whole Blood 122 mg/dL (70-110)
[2024-07-28 12:11] LABS: Glucose,Whole Blood 191 mg/dL (70-110)
[2024-07-28 13:05] VITALS: BP 133/61; PULSE 65; RESP 15; TEMP 98
[2024-07-28] MEDS: cefTRIAXone 2 GM in DEXTROSE 5% IN WATER 50 ML IVPB STA (13:28)
--- NOTE | 2024-07-28 13:29 | P.PN ---
Subjective Progress Note Date: 07/27/24 Principal diagnosis: Reason for follow-up is right diabetic foot infection/osteomyelitis Patient is a 58-year-old male with a past medical history significant for Asthma, Coronary Artery Disease (CAD), Cancer, Chest Pain / Angina, Diabetes Mellitus, Hyperlipidemia, Hypertension, Osteoarthritis (OA), Pneumonia, Sleep Apnea/CPAP/BIPAP, Thyroid Disorder, Vascular Disorder, who recently did have a right fifth toe amputation for diabetic foot ulcer/osteomyelitis presenting the hospital with right foot fifth toe amputation site incision reopening with a blister and drainage with abnormal x-ray suspicious for osteomyelitis. On today's evaluation that is 07/27/2024,the patient remains to be afebrile, patient is on room air not requiring supplemental oxygen and denies any shortness of breath no chest pain or cough.Patient denies having any nausea or vomiting, no abdominal pain and no diarrhea. No new labs Has been pain today Objective - Vital Signs Vital signs: Vital Signs Temp 97.9 F 07/27/24 07:38 Pulse 70 07/27/24 07:38 Resp 17 07/27/24 07:38 BP 158/68 07/27/24 07:38 Pulse Ox 97 07/27/24 07:38 FiO2 Intake & Output 07/26/24 07/27/24 07/27/24 18:59 06:59 18:59 Intake Total 0 200 Balance 2040 200 Intake: Oral 0 200 Other: Voiding Method Toilet Toilet # Voids 5 1 # Bowel Movements 1 - Exam GENERAL DESCRIPTION: Middle-age male lying in bed in no distress RESPIRATORY SYSTEM: Unlabored breathing , decreased breath sounds at bases HEART: S1 S2 regular rate and rhythm , ABDOMEN: Soft , no tenderness EXTREMITIES: Right foot lateral border superficial wound with some drainage - Labs CBC & Chem 7: 07/25/24 04:51 07/25/24 04:51 Labs: Abnormal Lab Results - Last 24 Hours (Table) 07/26/24 07/26/24 07/26/24 Range/Units 05:29 12:16 17:09 ESR 56 H (0-20) mm/Hr POC Glucose (mg/dL) 181 H 165 H (70-110) mg/dL 07/26/24 07/27/24 Range/Units 20:14 07:12 ESR (0-20) mm/Hr POC Glucose (mg/dL) 155 H 136 H (70-110) mg/dL Microbiology - Last 24 Hours (Table) 07/23/24 21:36 Blood Culture - Preliminary Blood Assessment and Plan (1) Diabetic infection of right foot Current Visit: No Status: Acute Code(s): E11.628 - TYPE 2 DIABETES MELLITUS WITH OTHER SKIN COMPLICATIONS; L08.9 - LOCAL INFECTION OF THE SKIN AND SUBCUTANE OUS TISSUE, UNSP SNOMED Code(s): 781066593 (2) Penicillin allergy Current Visit: No Status: Acute Code(s): Z88.0 - ALLERGY STATUS TO PENICILLIN SNOMED Code(s): 58289366 (3) Sepsis Current Visit: No Status: Acute Code(s): A41.9 - SEPSIS, UNSPECIFIED ORG ANISM SNOMED Code(s): 79910158 Plan: 1patient presented to the the hospital with sepsis in this patient who did have fever tachycardia elevated white count meeting criteria for SIRS source is right diabetic foot infection and will need to cover for polymicrobial chago associated with diabetic foot infection 2penicillin allergies that will limit number of antibiotic safety use 3patient culture have been finalized with MSSA, strep, 4PICC line has been placed plan is for a 6-week course of IV cefazolin 2 g every 8 hours and close outpatient follow-up Dictation was produced using [employer] dictation software. please excuse any grammatical, word or spelling errors. Time with Patient: Less than 30
--- NOTE | 2024-07-28 13:30 | P.PN ---
Subjective Progress Note Date: 07/28/24 Principal diagnosis: Reason for follow-up is right diabetic foot infection/osteomyelitis Patient is a 58-year-old male with a past medical history significant for Asthma, Coronary Artery Disease (CAD), Cancer, Chest Pain / Angina, Diabetes Mellitus, Hyperlipidemia, Hypertension, Osteoarthritis (OA), Pneumonia, Sleep Apnea/CPAP/BIPAP, Thyroid Disorder, Vascular Disorder, who recently did have a right fifth toe amputation for diabetic foot ulcer/osteomyelitis presenting the hospital with right foot fifth toe amputation site incision reopening with a blister and drainage with abnormal x-ray suspicious for osteomyelitis. On today's evaluation that is 07/28/2024, Patient is afebrile this morning patient denies having any chest pain shortness of breath or cough, the patient is currently on room air, patient denies any abdominal pain no diarrhea no nausea no vomiting. Patient did have a ESR of 56 CRP is 3.0 blood culture negative wound culture with MSSA and Streptococcus agalactiae Objective - Vital Signs Vital signs: Vital Signs Temp 98.2 F 07/28/24 07:25 Pulse 67 07/28/24 07:25 Resp 14 07/28/24 10:57 BP 153/66 07/28/24 07:25 Pulse Ox 96 07/28/24 07:25 FiO2 Intake & Output 07/27/24 07/28/24 07/28/24 18:59 06:59 18:59 Intake Total 540 Balance 540 Intake: Oral 540 Other: Voiding Method Toilet Toilet # Voids 3 - Exam GENERAL DESCRIPTION: Middle-age male lying in bed in no distress RESPIRATORY SYSTEM: Unlabored breathing , decreased breath sounds at bases HEART: S1 S2 regular rate and rhythm , ABDOMEN: Soft , no tenderness EXTREMITIES: Right foot lateral border superficial wound with some drainage - Labs CBC & Chem 7: 07/25/24 04:51 07/25/24 04:51 Labs: Abnormal Lab Results - Last 24 Hours (Table) 07/27/24 07/28/24 Range/Units 12:10 07:03 POC Glucose (mg/dL) 196 H 122 H (70-110) mg/dL Microbiology - Last 24 Hours (Table) 07/23/24 21:33 Anaerobic Culture - Preliminary Foot - Right Assessment and Plan (1) Diabetic infection of right foot Current Visit: No Status: Acute Code(s): E11.628 - TYPE 2 DIABETES MELLITUS WITH OTHER SKIN COMPLICATIONS; L08.9 - LOCAL INFECTION OF THE SKIN AND SUBCUTANEOUS TISSUE, UNSP SNOMED Code(s): 007402264 (2) Penicillin allergy Current Visit: No Status: Acute Code(s): Z88.0 - ALLERGY STATUS TO PENICILLIN SNOMED Code(s): 83086958 (3) Sepsis Current Visit: No Status: Acute Code(s): A41.9 - SEPSIS, UNSPECIFIED ORGANISM SNOMED Code(s): 75290801 Plan: 1patient presented to the the hospital with sepsis in this patient who did have fever tachycardia elevated white count meeting criteria for SIRS source is right diabetic foot infection and will need to cover for polymicrobial chago associated with diabetic foot infection 2penicillin allergies that will limit number of antibiotic safety use 3patient culture have been finalized with MSSA, strep, 4 plan is for a 6-week course of IV cefazolin 2 g every 8 hours prescription has been sent to the outpatient infusion clinic he will give him a dose of Rocephin 2 g x 1 today also recommending oral Flagyl pending finalization of the anaerobe culture Dictation was produced using [employer] software. please excuse any grammatical, word or spelling errors.
--- NOTE | 2024-07-29 00:27 | P.DS ---
Providers Date of admission: 07/23/24 22:49 Attending physician: Shiv Johnson MD Consults: 07/23/24 22:49 Consult Physician Routine Consulting Provider: Alber Fall Consult Reason/Comments: history of toe amputation, osteomyelitis Do you want consulting provider notified?: Yes Consult Physician Routine Consulting Provider: Rossy Mendoza Consult Reason/Comments: osteomyelitis/cellulitis Do you want consulting provider notified?: Yes Primary care physician: Марина [facility] Course: Diagnoses Right foot cellulitis at the bed of the amputated large toe Hx of asthma Coronary artery disease Diabetes mellitus Hypertension Hyperlipidemia Osteoarthritis Sleep apnea Hypothyroidism History of CML Hospital course: This is a pleasant 58 years old male with past medical history of multiple m edical problems including depression, coronary artery disease, peripheral artery disease s/p amputation of the right first toe from osteomyelitis and gangrene. Presents because of swelling erythema and tenderness signs for inflammation of the lateral distal forefoot. Patient evaluated by vascular surgery team and found no need for vascular surgery intervention. Also he was followed closely by infectious disease team he was treated with IV antibiotics cefepime and IV vancomycin, eventually changed based on the culture which was growing Staph aureus and strep agalactiae to cefazolin and Flagyl x 6 weeks upon discharge. Patient has right arm PICC line placed. Instruction to discontinue the PICC line once he finished with antibiotics risk of bacteremia explained for him and he verbalized understanding acceptance. Patient denies any other new complaint and he was very eager to be discharged. Discussed the case with manager social work all discharge arrangements has been set up. Patient was cleared for discharge by ID team. Problems and management plan were discussed with the patient and he verbalized understanding and acceptance Patient was found stable and can be discharged home in guarded prognosis however he needs follow-up as an outpatient. Patient was instructed to follow up with PCP within one week and patient agrees Physical exam Gen: patient is a AAOx3, no distress CVS: S1-S2, RRR, no murmur Lungs: B/L CTA, no wheezing Abdomen: soft, no distention, no tenderness, positive bowel sounds -Extremity: no leg edema or induration right foot in a dressing Time spent more than 35 minutes Patient Condition at Discharge: Stable Plan - Discharge Summary New Discharge Prescriptions: New metroNIDAZOLE [Flagyl] 500 mg PO TID #90 tab ceFAZolin [Kefzol] 2 gm IVP Q8HR #120 each Continue Aspirin 81 mg PO DAILY Semaglutide [Ozempic] 1 mg SQ WE Cyclobenzaprine [Flexeril] 5 mg PO BID PRN PRN Reason: Muscle Pain Nitroglycerin Sl Tabs [Nitrostat] 0.4 mg SUBLINGUAL Q5M PRN #25 tab PRN Reason: Chest Pain Evolocumab [Repatha Sureclick] 140 mg SQ Q14D ondansetron HCL [Zofran] 8 mg PO TID PRN PRN Reason: nausea Escitalopram [Lexapro] 20 mg PO HS metFORMIN HCL [Glucophage Xr] 750 mg PO BID Potassium Chloride [K-Tab ER] 20 meq PO HS Furosemide [Lasix] 40 mg PO DAILY lisinopriL [Zestril] 10 mg PO DAILY Prasugrel [Effient] 10 mg PO DAILY #90 tab Spironolactone 25 mg PO DAILY Gabapentin 300 mg PO BID Atorvastatin [Lipitor] 40 mg PO HS 30 Days #30 tab Discharge Medication List Aspirin 81 mg PO DAILY 02/02/18 [History] metFORMIN HCL [Glucophage Xr] 750 mg PO BID 09/26/20 [History] Furosemide [Lasix] 40 mg PO DAILY 08/10/23 [History] Potassium Chloride [K-Tab ER] 20 meq PO HS 08/10/23 [History] Semaglutide [Ozempic] 1 mg SQ WE 08/10/23 [History] Cyclobenzaprine [Flexeril] 5 mg PO BID PRN 08/11/23 [History] lisinopriL [Zestril] 10 mg PO DAILY 08/11/23 [History] Nitroglycerin Sl Tabs [Nitrostat] 0.4 mg SUBLINGUAL Q5M PRN #25 tab 08/12/23 [Rx] Evolocumab [Repatha Sureclick] 140 mg SQ Q14D 08/18/23 [History] Prasugrel [Effient] 10 mg PO DAILY #90 tab 08/21/23 [Rx] Spironolactone 25 mg PO DAILY 05/11/24 [History] Escitalopram [Lexapro] 20 mg PO HS 06/09/24 [History] Gabapentin 300 mg PO BID 06/09/24 [History] ondansetron HCL [Zofran] 8 mg PO TID PRN 06/09/24 [History] Atorvastatin [Lipitor] 40 mg PO HS 30 Days #30 tab 06/14/24 [Rx] ceFAZolin [Kefzol] 2 gm IVP Q8HR #120 each 07/28/24 [Rx] metroNIDAZOLE [Flagyl] 500 mg PO TID #90 tab 07/28/24 [Rx] Follow up Appointment(s)/Referral(s): Марина Sweeney DO [Primary Care Provider] - 08/04/24 9:15 am Alber Fall DO [STAFF PHYSICIAN] - 08/09/24 2:45 pm [facility],Infusion [NON-STAFF] - As Needed Rossy Mendoza MD [STAFF PHYSICIAN] - 08/01/24 3:00 pm [facility] Visiting Nurse, [NON-STAFF] - 07/29/24 Ambulatory/Diagnostic Orders: Basic Metabolic Panel [LAB.AMB] Location: None Selected C Reactive Protein [LAB.AMB] Location: None Selected Complete Blood Count w/diff [LAB.AMB] Location: None Selected Erythrocyte Sedimentation Rate [LAB.AMB] Location: None Selected Patient Instructions/Handouts: Cellulitis (GEN), Osteomyelitis (DC), How to Care for Your PICC (Peripherally Inserted Central Catheter) (DC) Activity/Diet/Wound Care/Special Instructions: Heart healthy diet Activity is restricted to see your doctor Discharge Disposition: HOME WITH HOME HEALTH SERVICES
--- NOTE | 2024-08-01 07:36 | CDI ---
Documentation Clarification Form Date: 08/01/24 From: Julianna Martinez Admit Date: 07/23/2024 10:49:00 PM Patient Name: Alber Davison Visit Number: [id number] Discharge Date: 07/28/2024 03:18:00 PM ATTENTION: The Clinical Documentation Specialists (CDI) and [facility] Coding Staff appreciate your assistance in clarifying documentation. Please respond to the clarification below the line at the bottom and electronically sign. The CDI & [facility] Coding staff will review the response and follow-up if needed. Please note: Queries are made part of the Legal Health Record. If you have any questions, please contact the author of this message via ITS. Doctor/Provider: Shiv E Sheet, Osteomyelitis of right foot is documented in the H&P, 07/24 PN and patient is noted to have a recent right fifth toe amputation in May 2024 per ED Note & H&P due to osteomyelitis and gangrene per H&P. Please clarify if there is a relationship between the diagnosis and the procedure/. History/Risk Factors: CMLand isimmunocompromised. Diabetes Mellitus, Hyperlipidemia,Hypertension,Osteoarthritis(OA), Clinical Indicators: 58-year-old male present withswellingredness anddrainage to the right foot. He had a right fifthtoe amputationfordiabetic foot ulcer/osteomyelitisand healing. He developed ablisterpresent with temp 99.4, heart rate 111 WBC 18.93 Neutrophils 12.11 Treatment: IV antibiotics (Cefazolin, Cefepime, Ceftriaxone, Meropenem, Flagyl, Vancomycin PICC line placed for home IV Kefzol Please clarify the relationship, if any, which is clinically appropriate for this patient: [ ] Osteomyelitis is due to infection following recent amputation with sepsis [x ] Osteomyelitis is due to Type II Diabetes Mellitus complication with sepsis [ ] Other explanation of clinical findings (please specify) [ ] Unable to determine (no explanation for clinical findings) MTDD
== END 2024-07-28 15:18 | disposition home health service (06) | DRG 872 ==
LOC: EC 20:58 → 5NMEDONC 22:49
PROVIDERS: ADMIT Internal Medicine; ATTEND Internal Medicine
PROC: 05HB33Z Insertion of Infusion Device into Right Basilic Vein, Percutaneous Approach (ICD-10-PCS; principal; 2024-07-26 15:25)
DX: A41.9 Sepsis, unspecified organism (principal); D89.813 Graft-versus-host disease, unspecified; D84.9 Immunodeficiency, unspecified; M86.9 Osteomyelitis, unspecified; L03.115 Cellulitis of right lower limb; E11.621 Type 2 diabetes mellitus with foot ulcer; Z94.81 Bone marrow transplant status; E03.9 Hypothyroidism, unspecified; I10 Essential (primary) hypertension; J45.909 Unspecified asthma, uncomplicated; F32.A Depression, unspecified; Z95.820 Peripheral vascular angioplasty status with implants and grafts; E11.69 Type 2 diabetes mellitus with other specified complication; B95.4 Other streptococcus as the cause of diseases classified elsewhere; B95.61 Methicillin susceptible Staphylococcus aureus infection as the cause of diseases classified elsewhere; Z89.421 Acquired absence of other right toe(s); I25.10 Atherosclerotic heart disease of native coronary artery without angina pectoris; E78.5 Hyperlipidemia, unspecified; G47.33 Obstructive sleep apnea (adult) (pediatric); F41.9 Anxiety disorder, unspecified; K46.9 Unspecified abdominal hernia without obstruction or gangrene; Z79.82 Long term (current) use of aspirin; Z79.02 Long term (current) use of antithrombotics/antiplatelets; Z79.84 Long term (current) use of oral hypoglycemic drugs; Z79.899 Other long term (current) drug therapy; Z79.85 Long-term (current) use of injectable non-insulin antidiabetic drugs; Z95.5 Presence of coronary angioplasty implant and graft; Z96.652 Presence of left artificial knee joint; Z87.891 Personal history of nicotine dependence; Z85.6 Personal history of leukemia; Z88.0 Allergy status to penicillin
CPT/HCPCS: 36415; 36573; 71046; 80048; 80053; 83036; 83605; 85025; 85652; 86140; 87040; 87070; 87075; 87077; 87186; 87205; 87636; 96361; 96365; 96366; 96368; 96375; 99285

== ENCOUNTER → 2024-08-11 | Outpatient (CLI) | payer BC, MEDICARE ==
--- NOTE | 2024-08-12 08:25 | NM ---
EXAMINATION TYPE: NM WBC limited DATE OF EXAM: 08/11/2024 COMPARISON: Plain film CLINICAL INDICATION: Male, 58 years old with history of L03.115 cellulitis R lower limb; TECHNIQUE: Following administration of 25 mCi Tc99m Ceretec. Images obtained 3 hours post injection . FINDINGS: Uptake on lateral view on the left lower extremity is somewhat diffuse however comparing frontal view s is not all that different from the contralateral side. Indeterminate uptake near the right knee tib ial plateau is somewhat linear uptake along the right fibula. IMPRESSION: 1. No increased uptake within the fifth metatarsal surgical bed to suggest osteomyelitis. Given evid ence of erosion on plain film close plain film follow-up is recommended. Consider follow-up 3 phase b one scan. 2. Determining uptake around the right knee and fibula possibly postsurgical. Correlate with dedicat ed radiographs. [facility], , 08/12/2024 8:22 AM
== END | disposition home or self-care (01) ==
LOC: RADNMMAIN 07:04
PROVIDERS: ATTEND Podiatrist
DX: L03.115 Cellulitis of right lower limb (principal); L97.514 Non-pressure chronic ulcer of other part of right foot with necrosis of bone; I73.9 Peripheral vascular disease, unspecified; E11.42 Type 2 diabetes mellitus with diabetic polyneuropathy; I25.10 Atherosclerotic heart disease of native coronary artery without angina pectoris; I10 Essential (primary) hypertension; L03.031 Cellulitis of right toe; Z86.31 Personal history of diabetic foot ulcer; Z48.02 Encounter for removal of sutures
CPT/HCPCS: 78300; A9569

== ENCOUNTER 2024-09-01 20:11 | Observation (INO) | payer BC, MEDICARE ==
[2024-09-01 21:35] LABS: Partial Thromboplastin Time 27.7 sec (22.0-30.0); Prothrombin Time 10.8 sec (10.0-12.5)
[2024-09-01 21:36] LABS: Lactic Acid, Venous 1.7 mmol/L (0.7-2.0)
[2024-09-01 21:38] LABS: ALT 14 U/L (4-49); AST 35 U/L (17-59); African American GFR (CKD) >90 (>60 ml/min/1.73 sqM); Albumin 4.1 g/dL (3.5-5.0); Alcohol <10 mg/dL; Alkaline Phosphatase 181 U/L (38-126); Anion Gap 7 mmol/L; Blood Urea Nitrogen 17 mg/dL (9-20); Calcium 9.2 mg/dL (8.4-10.2); Carbon Dioxide 28 mmol/L (22-30); Chloride 98 mmol/L (98-107); Glucose 243 mg/dL (74-99); Non-African American GFR(CKD) 85 (>60 ml/min/1.73 sqM); Potassium 4.7 mmol/L (3.5-5.1); Sodium 133 mmol/L (137-145); Total Bilirubin 0.3 mg/dL (0.2-1.3)
--- NOTE | 2024-09-01 21:48 | XR ---
EXAMINATION TYPE: XR chest 2V DATE OF EXAM: 09/01/2024 9:33 PM COMPARISON: Chest radiographs from 07/23/2024. CLINICAL INDICATION: Male, 58 years old with history of altered mental status; [facility] TECHNIQUE: XR chest 2V Frontal and lateral views of the chest. FINDINGS: Lungs/Pleura: There is no evidence of pleural effusion, focal consolidation, or pneumothorax. Pulmonary vascularity: Unremarkable. Heart/mediastinum: Cardiomediastinal silhouette is unremarkable. Musculoskeletal: No acute osseous pathology. IMPRESSION: No acute cardiopulmonary disease/process. [facility], , 09/01/2024 9:45 PM
--- NOTE | 2024-09-01 21:51 | CT ---
EXAMINATION TYPE: CT brain wo con DATE OF EXAM: 09/01/2024 9:29 PM COMPARISON: None. CLINICAL INDICATION: Male, 58 years old with history of Altered mental status, pt arrives to ED for c /o confusion and slurred speech TECHNIQUE: Brain: Axial CT images of the brain were obtained with coronal and sagittal reformats created and rev iewed. Contrast used: None. Oral contrast used: None. CT DLP: 1097.4 mGycm, Automated exposure control for dose reduction was used. FINDINGS: Brain: Extra-axial spaces: No abnormal extra-axial fluid collections. Ventricular system: Within normal limits Cerebral parenchyma: No acute intraparenchymal hemorrhage or mass effect. The mas-white junction is well differentiated. Cerebellum: Unremarkable. Mass effect: No evidence of midline shift. Intracranial vasculature: unremarkable Soft tissues: Normal. Calvarium/osseous structures: No depressed skull fracture. Paranasal sinuses and mastoid air cells: Mild scattered paranasal sinus disease. Visualized orbits: Orbital contents are intact. IMPRESSION: No acute intracranial process. [facility], , 09/01/2024 9:48 PM
[2024-09-01 23:25] LABS: Basophils # (A) 0.08 10*3/uL (0.00-0.10); Basophils % (A) 0.8 %; Eosinophils # (A) 0.28 10*3/uL (0.04-0.35); Eosinophils % (A) 2.8 %; HCT 38.3 % (39.6-50.0); HGB 12.7 g/dL (13.0-17.0); Lymphocytes # (A) 5.68 10*3/uL (0.90-5.00); Lymphocytes % (A) 56.2 %; MCH 28.9 pg (27.0-32.0); MCHC 33.2 g/dL (32.0-37.0); MCV 87.2 fL (80.0-97.0); Mean Platelet Volume 9.8 fL (9.5-12.2); Monocytes # (A) 0.97 10*3/uL (0.20-1.00); Monocytes % (A) 9.6 %; Neutrophils # (A) 3.05 10*3/uL (1.80-7.70); Neutrophils % (A) 30.2 %; Platelet Count 386 10*3/uL (140-440); RBC 4.39 10*6/uL (4.40-5.60); RDW 17.5 % (11.5-14.5)
--- NOTE | 2024-09-02 00:10 | ED ---
General Adult HPI - General Chief complaint: Neuro Symptoms/Deficit Stated complaint: slurred speech Time Seen by Provider: 09/01/24 20:21 Source: patient Mode of arrival: wheelchair Limitations: no limitations - History of Present Illness Initial comments: 58-year-old male with past medical history of CML status post bone marrow transplant, asthma, coronary artery disease, diabetes who presents to the emergency department with altered mental status. is at bedside and provides majority history. States that around 6:45 PM the patient had worsening altered mental status. He began having repetitive questioning and some slurred speech. The patient states he feels as if he is in a fog. No report of any head injuries. No history of stroke. No lateralizing weakness. no fevers. No recent medication changes. Denies a headache. No visual changes. patient is alert and oriented x 3 with an NIH of 0 at presentation. No recent change in his bowel or bladder habits. Patient currently on an antibiotics for a foot infection. states that this is not a new medication for him. No other alleviating, precipitating modifying factors - Related Data Home Medications Medication Instructions Recorded Confirmed Aspirin 81 mg PO DAILY 02/02/18 07/24/24 metFORMIN HCL [Glucophage Xr] 750 mg PO BID 09/26/20 07/24/24 Furosemide [Lasix] 40 mg PO DAILY 08/10/23 07/24/24 Potassium Chloride [K-Tab ER] 20 meq PO HS 08/10/23 07/24/24 Semaglutide [Ozempic] 1 mg SQ WE 08/10/23 07/24/24 Cyclobenzaprine [Flexeril] 5 mg PO BID PRN 08/11/23 07/24/24 lisinopriL [Zestril] 10 mg PO DAILY 08/11/23 07/24/24 Evolocumab [Repatha Sureclick] 140 mg SQ Q14D 08/18/23 07/24/24 Spironolactone 25 mg PO DAILY 05/11/24 07/24/24 Escitalopram [Lexapro] 20 mg PO HS 06/09/24 07/24/24 Gabapentin 300 mg PO BID 06/09/24 07/24/24 ondansetron HCL [Zofran] 8 mg PO TID PRN 06/09/24 07/24/24 Previous Rx's Medication Instructions Recorded Nitroglycerin Sl Tabs [Nitrostat] 0.4 mg SUBLINGUAL Q5M PRN #25 tab 08/12/23 Prasugrel [Effient] 10 mg PO DAILY #90 tab 08/21/23 Atorvastatin [Lipitor] 40 mg PO HS 30 Days #30 tab 06/14/24 ceFAZolin [Kefzol] 2 gm IVP Q8HR #120 each 07/28/24 metroNIDAZOLE [Flagyl] 500 mg PO TID #90 tab 07/28/24 Allergies Allergy/AdvReac Type Severity Reaction Status Date / Time Penicillins Allergy Unknown Verified 09/01/24 20:13 Childhood Review of Systems ROS Statement: Those systems with pertinent positive or pertinent negative responses have been documented in the HPI. ROS Other: All systems not noted in ROS Statement are negative. 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 mild Edema rt lower leg, abdominal hernia, no cpap used since wt loss, sleeps elevated, sepsis after dog bite to hand 2019. seasonal allergies, , recent SOB. [place] seen on stress test per pt. ( 2 weeks ago), c/o left sided neck pain, "it's the vein in that side of my neck", has had some N/V this week, will get nauseated occasionally anyway but seems more frequent this week, recent adm[facility] for coronary stent, tired, SOB w/exertion History of Any Multi-Drug Resistant Organisms: None Reported Past Surgical History: Heart Catheterization With Stent, Joint Replacement Additional Past Surgical History / Comment(s): BONE MARROW TRANSPLANT 2006, Lt KNEE arthroscopy, left knee REPLACEMENT, SEPTAL SURG, BMTs bilateral ears, hemorrhoidectomy, colonoscopy, vasectomy, aortogram, atherectomy with balloon angioplasty 08/25/17. stent in legs 2020, recent card. cath Past Anesthesia/Blood Transfusion Reactions: No Reported Reaction Additional Past Anesthesia/Blood Transfusion Reaction / Comment(s): Pt has received blood without reaction. Mom had problems with dyes. Date of Last Stent Placement:: 08/11/23 Past Psychological History: Anxiety Smoking Status: Never smoker Past Drug Use History: None Reported, Marijuana - Past Family History Father Family Medical History: Coronary Artery Disease (CAD), Pulmonary Embolus Additional Family Medical History / Comment(s): cabg Mother Family Medical History: Dementia Additional Family Medical History / Comment(s): Mother at age 72yrs. Daughter(s) Family Medical History: Blood Disorder Additional Family Medical History / Comment(s): "they just keep bleeding' both daughters General Exam Limitations: no limitations General appearance: alert, in no apparent distress Head exam: Present: atraumatic, normocephalic, normal inspection Eye exam: Present: normal appearance, PERRL, EOMI. Absent: scleral icterus, conjunctival injection, periorbital swelling ENT exam: Present: normal exam, mucous membranes moist Neck exam: Present: normal inspection. Absent: tenderness, meningismus, lymphadenopathy Respiratory exam: Present: normal lung sounds bilaterally. Absent: respiratory distress, wheezes, rales, rhonchi, stridor Cardiovascular Exam: Present: regular rate, normal rhythm, normal heart sounds. Absent: systolic murmur, diastolic murmur, rubs, gallop, clicks GI/Abdominal exam: Present: soft, normal bowel sounds. Absent: distended, tenderness, guarding, rebound, rigid Extremities exam: Present: normal inspection, full ROM, normal capillary refill. Absent: tenderness, pedal edema, joint swelling, calf tenderness Back exam: Present: normal inspection Neurological exam: Present: alert, oriented X3, CN II-XII intact Psychiatric exam: Present: normal affect, normal mood Skin exam: Present: warm, dry, intact, normal color. Absent: rash Course Vital Signs 09/01/24 20:13 Temperature 97.8 F Pulse Rate 107 H Respiratory 18 Rate Blood Pressure 115/67 O2 Sat by Pulse 94 L Oximetry Medical Decision Making - Medical Decision Making Was pt. sent in by a medical professional or institution (, PA, NETBACKUP ADMIN, urgent care, hospital, or fdc...) When possible be specific @ -[No] Did you speak to anyone other than the patient for history (EMS, parent, family, police, friend...)? What history was obtained from this source @ -[No] Did you review nursing and triage notes (agree or disagree)? Why? @ -[I reviewed and agree with nursing and triage notes] Were old charts reviewed (outside hosp., previous admission, EMS record, old EKG, old radiological studies, urgent care reports/EKG's, fdc records)? Report findings @ -[No old charts were reviewed] Differential Diagnosis (chest pain, altered mental status, abdominal pain women, abdominal pain men, vaginal bleeding, weakness, fever, dyspnea, syncope, headache, dizziness, GI bleed, back pain, seizure, CVA, palpatations, mental health, musculoskeletal)? @ -[not applicable] EKG interpreted by me (3pts min.). @ -Yes which demonstrates sinus tach with a rate of 101. RI interval 185. QRS 117. QTc of 435. No acute ST segment elevations or depressions X-rays interpreted by me (1pt min.). @ -[None done] CT interpreted by me (1pt min.). @ -[None done] U/S interpreted by me (1pt. min.). @ -[None done] What testing was considered but not performed or refused? (CT, X-rays, U/S, labs)? Why? @ -[None] What meds were considered but not given or refused? Why? @ -[None] Did you discuss the management of the patient with other professionals (professionals i.e. , PA, NETBACKUP ADMIN, lab, RT, psych nurse, social work faculty member, restoration silversmith, teacher, chief sustainability officer, correctional counselor/case manager)? Give summary @ -[No] Was smoking cessation discussed for >3mins.? @ -[No] Was critical care preformed (if so, how long)? @ -[No] Were there social determinants of health that impacted care today? How? (Homelessness, low income, unemployed, alcoholism, drug addiction, transportation, low edu. Level, literacy, decrease access to med. care, prison, rehab)? @ -[No] Was there de-escalation of care discussed even if they declined (Discuss DNR or withdrawal of care, Hospice)? DNR status @ -[No] What co-morbidities impacted this encounter? (DM, HTN, Smoking, COPD, CAD, Cancer, CVA, ARF, Chemo, Hep., AIDS, mental health diagnosis, sleep apnea, morbid obesity)? @ -[None] Was patient admitted / discharged? Hospital course, mention meds given and route, prescriptions, significant lab abnormalities, going to OR and other pertinent info. @ -[hospital course] Undiagnosed new problem with uncertain prognosis? @ -[No] Drug Therapy requiring intensive monitoring for toxicity (Heparin, Nitro, Insulin, Cardizem)? @ -[No] Were any procedures done? @ -[No] Diagnosis/symptom? @ -[default] Acute, or Chronic, or Acute on Chronic? @ -[default] Uncomplicated (without systemic symptoms) or Complicated (systemic symptoms)? @ -[default] Side effects of treatment? @ -[No] Exacerbation, Progression, or Severe Exacerbation? @ -[No] Poses a threat to life or bodily function? How? (Chest pain, [place], [place], pneumonia, PE, COPD, DKA, ARF, appy, cholecystitis, CVA, Diverticulitis, Homicidal, Suicidal, threat to staff... and all critical care pts) @ -[No] - Lab Data Result diagrams: 09/01/24 21:14 09/01/24 21:14 Lab Results 09/01/24 09/01/24 09/01/24 Range/Units 21:14 21:14 21:14 WBC 10.10 H (4.50-10.00) 10*3/uL RBC 4.39 L (4.40-5.60) 10*6/uL Hgb 12.7 L (13.0-17.0) g/dL Hct 38.3 L (39.6-50.0) % MCV 87.2 (80.0-97.0) fL MCH 28.9 (27.0-32.0) pg MCHC 33.2 (32.0-37.0) g/dL Plt Count 386 (140-440) 10*3/uL MPV 9.8 (9.5-12.2) fL Immature Gran % (Auto) 0.4 % Immature Gran # 0.04 (0.00-0.04) 10*3/uL PT 10.8 (10.0-12.5) sec INR 1.0 (<1.2) APTT 27.7 (22.0-30.0) sec Sodium 133 L (137-145) mmol/L Potassium 4.7 (3.5-5.1) mmol/L Chloride 98 (98-107) mmol/L Carbon Dioxide 28 (22-30) mmol/L Anion Gap 7 mmol/L BUN 17 (9-20) mg/dL Creatinine 0.98 (0.66-1.25) mg/dL Est GFR (CKD-EPI)AfAm >90 (>60 ml/min/1.73 sqM) Est GFR (CKD-EPI)NonAf 85 (>60 ml/min/1.73 sqM) Glucose 243 H (74-99) mg/dL Plasma Lactic Acid Alexei (0.7-2.0) mmol/L Calcium 9.2 (8.4-10.2) mg/dL Total Bilirubin 0.3 (0.2-1.3) mg/dL AST 35 (17-59) U/L ALT 14 (4-49) U/L Alkaline Phosphatase 181 H (38-126) U/L Ammonia (<30) umol/L Troponin I (0.000-0.034) ng/mL Total Protein 7.0 (6.3-8.2) g/dL Albumin 4.1 (3.5-5.0) g/dL Serum Alcohol <10 mg/dL 09/01/24 09/01/24 Range/Units 21:14 21:14 WBC (4.50-10.00) 10*3/uL RBC (4.40-5.60) 10*6/uL Hgb (13.0-17.0) g/dL Hct (39.6-50.0) % MCV (80.0-97.0) fL MCH (27.0-32.0) pg MCHC (32.0-37.0) g/dL Plt Count (140-440) 10*3/uL MPV (9.5-12.2) fL Immature Gran % (Auto) % Immature Gran # (0.00-0.04) 10*3/uL PT (10.0-12.5) sec INR (<1.2) APTT (22.0-30.0) sec Sodium (137-145) mmol/L Potassium (3.5-5.1) mmol/L Chloride (98-107) mmol/L Carbon Dioxide (22-30) mmol/L Anion Gap mmol/L BUN (9-20) mg/dL Creatinine (0.66-1.25) mg/dL Est GFR (CKD-EPI)AfAm (>60 ml/min/1.73 sqM) Est GFR (CKD-EPI)NonAf (>60 ml/min/1.73 sqM) Glucose (74-99) mg/dL Plasma Lactic Acid Alexei 1.7 (0.7-2.0) mmol/L Calcium (8.4-10.2) mg/dL Total Bilirubin (0.2-1.3) mg/dL AST (17-59) U/L ALT (4-49) U/L Alkaline Phosphatase (38-126) U/L Ammonia <9 (<30) umol/L Troponin I <0.012 (0.000-0.034) ng/mL Total Protein (6.3-8.2) g/dL Albumin (3.5-5.0) g/dL Serum Alcohol mg/dL Disposition Clinical Impression: Status post bone marrow transplant, Acute encephalopathy Disposition: ADMITTED IP TO THIS [facility] Condition: Stable Is patient prescribed a controlled substance at d/c from ED?: No Referrals: Марина Sweeney DO [Primary Care Provider] - 1-2 days Time of Disposition: 00:22 Decision to Admit Reason: Admit from EC Decision Date: 09/02/24 Decision Time: 00:22
[2024-09-02] MEDS ORDERED: NALOXONE 0.4 MG/ML 1 ML VIAL IV PRN (00:22)
[2024-09-02] MEDS: SODIUM CHLORIDE 0.9% 1,000 ML IV SCH (00:41)
[2024-09-02 01:52] LABS: Howell-Jolly Bodies Present
[2024-09-02 01:55] LABS: Poikilocytosis (M) Present
[2024-09-02 02:51] LABS: Appearance,Urine Clear (Clear); Bilirubin,Urine Negative (Negative); Blood,Urine Negative (Negative); Color,Urine Colorless; Glucose,Urine (UA) 1+ (Negative); Ketones,Urine Negative (Negative); Leukocyte Esterase,Urine Negative (Negative); Nitrite,Urine Negative (Negative); Protein,Urine Negative (Negative); Specific Gravity,Urine 1.009 (1.001-1.035); Urobilinogen,Urine <2.0 mg/dL (<2.0)
[2024-09-02 03:29] LABS: Amphetamine Screen,Urine Not Detected (NotDetected); Barbiturate Screen,Urine Not Detected (NotDetected); Benzodiazepines Screen,Urine Not Detected (NotDetected); Cocaine Screen,Urine Not Detected (NotDetected); Methadone Screen, Urine Not Detected (NotDetected); Opiate Screen,Urine Not Detected (NotDetected); Oxycodone Screen, Urine Not Detected (NotDetected); Phencyclidine Screen,Urine Not Detected (NotDetected); Tricyclic Antidepressant,Urine Not Detected (NotDetected); Urn Cannabinoid Scrn Detected (NotDetected)
[2024-09-02 12:31] LABS: Glucose,Whole Blood 453 mg/dL (70-110)
[2024-09-02] MEDS ORDERED: DEXTROSE 50% SYRINGE 50 ML IVP PRN ×2 (13:12)
[2024-09-02] MEDS ORDERED: NITROGLYCERIN SL TABS 0.4 MG TAB SUBLINGUAL PRN (13:13)
[2024-09-02] MEDS ORDERED: hydrALAZINE HCL 25 MG TAB PO PRN (13:13)
[2024-09-02] MEDS ORDERED: CYCLOBENZAPRINE 5 MG TAB PO PRN (13:13)
[2024-09-02] MEDS: INSULIN LISPRO (HumaLOG) 100 UNIT/ML 10 mL VL SQ SCH (13:22)
[2024-09-02] MEDS: PRASUGREL 10 MG TAB PO SCH (14:03)
[2024-09-02] MEDS: SPIRONOLACTONE 25 MG TAB PO SCH (14:03)
[2024-09-02] MEDS: INSULIN GLARGINE (LANTUS) 100 UNIT/ML SYR SQ SCH (14:04)
--- NOTE | 2024-09-02 14:29 | P.CNNES ---
History of Present Illness Consult date: 09/02/24 Requesting physician: Nidhi Cortez Reason for Consult: acute encephalopathy History of Present Illness: This is a 58-year-old gentleman who presents emergency department because of confusion. History is obtained from the patient's who is at bedside. According to the last night the patient was confused in which he did not know how to use a spoon and that happened around between 630 to 7 PM. She noticed that the patient was having slight tremor of the hands but was conversing as well as the feet. No jerking of any extremity. No eye rolling back or any foaming around the mouth. Then he notified his that he was seeing a film playing in his eyes and he was repeating the same questions over and over again. Prior to that he was doing well. Patient does not have any history of stroke in the past. No history of seizures. He feels he is doing drastically better but not 100% back. Patient denies any headache. It seems that he had recent right toe resection and it was the fifth digit and he had a PICC line and was getting antibiotic 3 times a day but unsure the name of antibiotic. He is followed up with Dr. Mendoza. Patient has a history of CML and had a bone marrow transplant in 2006. Upon reviewing the patient medical record it seems that the patient is on metronidazole and patient is on cefazolin every 8 hours Some of the work-up during this hospital visit consisted of: On initial presentation glucose was 243 and most recent glucose is 453 Ammonia level is less than 9 Urine direction is positive for marijuana otherwise the rest is not detected. CT of the head is reported as no acute intracranial process. I personally reviewed the CT and agree with the report Review of Systems As per HPI Past Medical History Past Medical History: Asthma, Coronary Artery Disease (CAD), Cancer, Chest Pain / Angina, Diabetes Mellitus, Hyperlipidemia, Hypertension, Osteoarthritis (OA), Pneumonia, Sleep Apnea/CPAP/BIPAP, Thyroid Disorder, Vascular Disorder Additional Past Medical History / Comment(s): CML- immmunosuppressed, carpal tunnel bilaterally, chronic dry mucosa from the hgvct-fmazrd-gcnc disease (especially of the eyes and oral cavity). abdominal hernia, no cpap used since wt loss, sleeps elevated, sepsis after dog bite to hand 2020. seasonal allergies, , recent SOB. [place] seen on stress test per pt. ( 2 weeks ago), c/o left sided neck pain, "it's the vein in that side of my neck", has had some N/V this week, will get nauseated occasionally anyway but seems more frequent this week, recent adm[facility] for coronary stent, tired, SOB w/exertion History of Any Multi-Drug Resistant Organisms: None Reported Past Surgical History: Heart Catheterization With Stent, Joint Replacement Additional Past Surgical History / Comment(s): BONE MARROW TRANSPLANT 2006, Lt KNEE arthroscopy, left knee REPLACEMENT, SEPTAL SURG, BMTs bilateral ears, hemorrhoidectomy, colonoscopy, vasectomy, aortogram, atherectomy with balloon angioplasty 08/25/17. stent in legs 2020, recent card. cath Past Anesthesia/Blood Transfusion Reactions: No Reported Reaction Additional Past Anesthesia/Blood Transfusion Reaction / Comment(s): Pt has received blood without reaction. Mom had problems with dyes. Date of Last Stent Placement:: 08/11/23 Past Psychological History: Anxiety Additional Psychological History / Comment(s): Pt resides with his spouse and 2 grown children. He is independent. He uses no assistive device. He has DEDE and his CPAP is broken so he is not using it at this time. He drives. 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 Was a tobacco smoker briefly more than 20 years ago. No significant alcohol use. No recreational drugs use. No experience. No recent travel history. No animal exposures. Smoking Status: Never smoker Past Alcohol Use History: None Reported Additional Past Alcohol Use History / Comment(s): Quit smoking 25 yrs ago, smoked only socially. Pt stated he has not had alcohol since jan 2024 Past Drug Use History: None Reported, Marijuana Additional Drug Use History / Comment(s): cbd oil, pt aware not to use today - Past Family History Father Family Medical History: Coronary Artery Disease (CAD), Pulmonary Embolus Additional Family Medical History / Comment(s): cabg Mother Family Medical History: Dementia Additional Family Medical History / Comment(s): Mother at age 72yrs. Daughter(s) Family Medical History: Blood Disorder Additional Family Medical History / Comment(s): "they just keep bleeding' both daughters Medications and Allergies Home Medications Medication Instructions Recorded Confirmed Type Aspirin 81 mg PO DAILY 02/02/18 09/02/24 History metFORMIN HCL [Glucophage Xr] 750 mg PO BID 09/26/20 09/02/24 History Furosemide [Lasix] 40 mg PO DAILY 08/10/23 09/02/24 History Potassium Chloride [K-Tab ER] 20 meq PO HS 08/10/23 09/02/24 History Semaglutide [Ozempic] 1 mg SQ WE 08/10/23 09/02/24 History Cyclobenzaprine [Flexeril] 5 mg PO BID PRN 08/11/23 09/02/24 History Nitroglycerin Sl Tabs [Nitrostat] 0.4 mg SUBLINGUAL Q5M PRN #25 tab 08/12/23 09/02/24 Rx Evolocumab [Repatha Sureclick] 140 mg SQ Q14D 08/18/23 09/02/24 History Prasugrel [Effient] 10 mg PO DAILY #90 tab 08/21/23 09/02/24 Rx Spironolactone 25 mg PO DAILY 05/11/24 09/02/24 History Escitalopram [Lexapro] 20 mg PO HS 06/09/24 09/02/24 History Gabapentin 300 mg PO BID 06/09/24 09/02/24 History ondansetron HCL [Zofran] 8 mg PO TID PRN 06/09/24 09/02/24 History Atorvastatin [Lipitor] 40 mg PO HS 30 Days #30 tab 06/14/24 09/02/24 Rx ceFAZolin [Kefzol] 2 gm IVP Q8HR #120 each 07/28/24 09/02/24 Rx metroNIDAZOLE [Flagyl] 500 mg PO TID #90 tab 07/28/24 09/02/24 Rx hydrALAZINE HCL 25 mg PO DAILY PRN 09/02/24 09/02/24 History Allergies Allergy/AdvReac Type Severity Reaction Status Date / Time Penicillins Allergy Unknown Verified 09/02/24 09:25 Childhood Physical Examination - Vital Signs Vital Signs: Vital Signs Temp Pulse Pulse Resp BP BP Pulse Ox 09/02/24 13:27 97.9 F 70 19 159/80 96 09/02/24 07:45 97.5 F L 70 18 136/86 100 09/02/24 06:00 97.9 F 72 16 118/72 97 09/02/24 00:25 97.4 F L 75 19 116/65 98 09/01/24 20:13 97.8 F 107 H 18 115/67 94 L Intake and Output 09/01/24 09/02/24 09/02/24 22:59 06:59 14:59 Output Total 600 Balance -600 Output: Urine 600 Other: Weight 83.915 kg 83.915 kg GENERAL: The patient is lying in bed and is not in acute distress. NEUROLOGICAL: Higher mental function: The patient is awake, alert, oriented to self, place and time. Patient was able to state his date of anniversary and the patient's stated that was correct. Patient is following commands. No aphasia and no neglect. Cranial nerves: The pupils are round, equal and reactive to light and accommodation. Visual hess are full to confrontation throughout. Extraocular movement is intact no nystagmus is noted. Facial sensation is normal to touch throughout. The facial strength is normal throughout. Hearing is normal bilaterally to hand rub. Tongue is midline and moved [id number] without any difficulty. No dysarthria is noted. Shoulder shrug is normal bilaterally. Motor: The strength is 5 over 5 throughout. Normal tone and bulk. Cerebellum: Normal finger to nose bilaterally. Sensation: Sensation is normal to touch throughout. Reflexes (right/left): 2+ throughout. Plantars are downgoing bilaterally. Results - Laboratory Findings CBC and BMP: 09/01/24 21:14 09/01/24 21:14 Abnormal Lab Findings: Abnormal Labs 09/01/24 09/01/24 09/02/24 21:14 21:14 02:23 WBC 10.10 H RBC 4.39 L Hgb 12.7 L Hct 38.3 L Lymphocytes # 5.68 H Sodium 133 L Glucose 243 H POC Glucose (mg/dL) Alkaline Phosphatase 181 H Urine Glucose (UA) 1+ H U Marijuana (THC) Screen Detected H 09/02/24 12:28 WBC RBC Hgb Hct Lymphocytes # Sodium Glucose POC Glucose (mg/dL) 453 H Alkaline Phosphatase Urine Glucose (UA) U Marijuana (THC) Screen Assessment and Plan Assessment: This is a 58-year-old gentleman who has a right fifth digit resection and is on IV antibiotics through PICC line followed up with ID who presents because of episode of confusion yesterday not knowing how to use a spoon and repeating the same questions. Acute transient encephalopathy unknown exact etiology. Possible due to medication induced/cephalosporin induced encephalopathy. Patient was on cefazolin. CT of the head is unremarkable. Patient does not have any focal deficit History of CML status post bone marrow transplant in 2006 Diabetes mellitus Recent low blood pressure according to the but in our facility is normal Plan: I ordered MRI of the brain with and without as well as routine EEG I ordered TSH, vitamin B12 I consulted ID for the concern that the medication is the culprit of his confusion Will defer the rest of the medical management to primary and other specialist Thank you for the consultation. Time with Patient: Greater than 30
[2024-09-02] MEDS ORDERED: NON FORMULARY DRUG (Cefazolin 2 GM/20 ML Each) IVP SCH (16:00)
[2024-09-02] MEDS: metroNIDAZOLE 500 MG TAB PO SCH (16:07)
[2024-09-02] MEDS: ceFAZolin 2 GM in DEXTROSE 5% IN WATER 50 ML IVPB SCH (16:07)
[2024-09-02 17:09] LABS: Glucose,Whole Blood 209 mg/dL (70-110)
[2024-09-02 19:41] VITALS: RESP 16
[2024-09-02 20:21] LABS: Glucose,Whole Blood 163 mg/dL (70-110)
--- NOTE | 2024-09-02 20:48 | EEG ---
ELECTROENCEPHALOGRAM REPORT CLINICAL HISTORY: This is a 58-year-old gentleman with altered mental status. The video EEG is obtained to evaluate for seizure epileptiform activity. RELEVANT MEDICATIONS: 1. Gabapentin. 2. Lexapro. 3. Flexeril. EEG TYPE: A routine 21-channel EEG with video using the 10/20 electrode system. DESCRIPTION: Wakefulness is only obtained. During awake state, the background consists of low-to- moderate voltage of 7-8 hertz activity that is well modulated and well sustained. There is no physiological stage 2 sleep architecture. There is no focal slowing. INTERICTAL AND ICTAL: None. ACTIVATION PROCEDURE: Photic stimulation did not evoke a posterior driving response. There is no abnormality during the photic stimulation. Hyperventilation is not performed. CLINICAL INTERPRETATION: This is an abnormal routine EEG during awake state. The background slowing is suggestive of moderate encephalopathy. There is no focal slowing, epileptiform discharge, or seizure on the EEG. A lack of epileptiform discharge does not rule out underlying epilepsy. Clinical correlation is recommended. MMODL / IJN: [id number] /
[2024-09-02] MEDS: GABAPENTIN 300 MG CAP PO SCH (21:16)
[2024-09-02] MEDS: ESCITALOPRAM 20 MG TAB PO SCH (21:16)
[2024-09-02] MEDS: ATORVASTATIN 40 MG TAB PO SCH (21:21)
--- NOTE | 2024-09-02 22:36 | P.CONS ---
History of Present Illness - Reason for Consult Consult date: 09/02/24 Recent confusion possibly due to antibiotics Requesting physician: Romel Bolivar - Chief Complaint Mental status changes x 1 day - History of Present Illness Patient is a 58-year-old male with a past medical history significant for Asthma, Coronary Artery Disease (CAD), Cancer, Chest Pain / Angina, Diabetes Mellitus, Hyperlipidemia, Hypertension, Osteoarthritis (OA), Pneumonia, Sleep Apnea/CPAP/BIPAP, Thyroid Disorder, Vascular Disorder, history of diabetic foot infection requiring amputation of his right big toe patient was subsequently admitted to the hospital with right big toe amputation site incision opening up with further workup which was evidence of osteomyelitis and local culture positive for MSSA and Streptococcus, for which the patient has been sent home on cefazolin 2 g every 8 hour along with oral Flagyl patient has been getting those antibiotic at home since 07/28/2024 however the patient never made any follow-up appointment in the office patient now presenting to the ER last night for evaluation of altered mental status patient did have a repeated questioning of some slurred speech and noticed to have some brain fog but no focal weakness and no fever patient on presentation to the hospital was afebrile and no fever Recorded subsequently patient was not tachycardic hypotensive or hypoxic he did have a white count of 10.10 with a left shift creatinine 0.98 sodium is 133 rest of electrolytes are normal liver enzymes normal UA has been negative urine drug screen was positive for marijuana patient did have CT of the brain that was negative for any bleed chest x-ray no acute cardiopulmonary disease process neurology evaluated the patient who subsequently consulted ID questioning symptom caused by his antibiotic but not specifically patient mention has been using his antibiotic regularly without missing a single dose has been c omplaining of some nausea associated with it patient right big toe amputation site wound is currently healed with no pain swelling redness or any drainage and denies have any focal weakness Review of Systems Positive point and negatives has been mentioned in the HPI, complete review of systems was performed and all other systems are negative Past Medical History Past Medical History: Asthma, Coronary Artery Disease (CAD), Cancer, Chest Pain / Angina, Diabetes Mellitus, Hyperlipidemia, Hypertension, Osteoarthritis (OA), Pneumonia, Sleep Apnea/CPAP/BIPAP, Thyroid Disorder, Vascular Disorder Additional Past Medical History / Comment(s): CML- immmunosuppressed, carpal tunnel bilaterally, chronic dry mucosa from the cpgys-[id number]-lflu disease (especially of the eyes and oral cavity). abdominal hernia, no cpap used since wt loss, sleeps elevated, sepsis after dog bite to hand 2019. seasonal allergi es, , recent SOB. [place] seen on stress test per pt. ( 2 weeks ago), c/o left sided neck pain, "it's the vein in that side of my neck", has had some N/V this week, will get nauseated occasionally anyway but seems more frequent this week, recent adm[facility] for coronary stent, tired, SOB w/exertion History of Any Multi-Drug Resistant Organisms: None Reported Past Surgical History: Heart Catheterization With Stent, Joint Replacement Additional Past Surgical History / Comment(s): BONE MARROW TRANSPLANT 2006, Lt KNEE arthroscopy, left knee REPLACEMENT, SEPTAL SURG, BMTs bilateral ears, hemorrhoidectomy, colonoscopy, vasectomy, aortogram, atherectomy with balloon angioplasty 08/25/17. stent in legs 2020, recent card. cath Past Anesthesia/Blood Transfusion Reactions: No Reported Reaction Additional Past Anesthesia/Blood Transfusion Reaction / Comm: Pt has received blood without reaction. Mom had problems with dyes. Date of Last Stent Placement:: 08/11/23 Past Psychological History: Anxiety Additional Psychological History / Comment(s): Pt resides with his spouse and 2 grown children. He is independent. He uses no assistive device. He has DEDE and his CPAP is broken so he is not using it at this time. He drives. 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 Was a tobacco smoker briefly more than 20 years ago. No significant alcohol use. No recreational drugs use. No experience. No recent travel history. No animal exposures. Smoking Status: Never smoker Past Alcohol Use History: None Reported Additional Past Alcohol Use History / Comment(s): Quit smoking 25 yrs ago, smoked only socially. Pt stated he has not had alcohol since jan 2024 Past Drug Use History: None Reported, Marijuana Additional Drug Use History / Comment(s): cbd oil, pt aware not to use today - Past Family History Father Family Medical History: Coronary Artery Disease (CAD), Pulmonary Embolus Additional Family Medical History / Comment(s): cabg Mother Family Medical History: Dementia Additional Family Medical History / Comment(s): Mother at age 72yrs. Daughter(s) Family Medical History: Blood Disorder Additional Family Medical History / Comment(s): "they just keep bleeding' both daughters Medications and Allergies Home Medications Medication Instructions Recorded Confirmed Type Aspirin 81 mg PO DAILY 02/02/18 09/02/24 History metFORMIN HCL [Glucophage Xr] 750 mg PO BID 09/26/20 09/02/24 History Furosemide [Lasix] 40 mg PO DAILY 08/10/23 09/02/24 History Potassium Chloride [K-Tab ER] 20 meq PO HS 08/10/23 09/02/24 History Semaglutide [Ozempic] 1 mg SQ WE 08/10/23 09/02/24 History Cyclobenzaprine [Flexeril] 5 mg PO BID PRN 08/11/23 09/02/24 History Nitroglycerin Sl Tabs [Nitrostat] 0.4 mg SUBLINGUAL Q5M PRN #25 tab 08/12/23 09/02/24 Rx Evolocumab [Repatha Sureclick] 140 mg SQ Q14D 08/18/23 09/02/24 History Prasugrel [Effient] 10 mg PO DAILY #90 tab 08/21/23 09/02/24 Rx Spironolactone 25 mg PO DAILY 05/11/24 09/02/24 History Escitalopram [Lexapro] 20 mg PO HS 06/09/24 09/02/24 History Gabapentin 300 mg PO BID 06/09/24 09/02/24 History ondansetron HCL [Zofran] 8 mg PO TID PRN 06/09/24 09/02/24 History Atorvastatin [Lipitor] 40 mg PO HS 30 Days #30 tab 06/14/24 09/02/24 Rx ceFAZolin [Kefzol] 2 gm IVP Q8HR #120 each 07/28/24 09/02/24 Rx metroNIDAZOLE [Flagyl] 500 mg PO TID #90 tab 07/28/24 09/02/24 Rx hydrALAZINE HCL 25 mg PO DAILY PRN 09/02/24 09/02/24 History Allergies Allergy/AdvReac Type Severity Reaction Status Date / Time Penicillins Allergy Unknown Verified 09/02/24 09:25 Childhood Physical Exam Vitals: Vital Signs Temp Pulse Pulse Resp BP BP Pulse Ox 09/02/24 13:27 97.9 F 70 19 159/80 96 09/02/24 07:45 97.5 F L 70 18 136/86 100 09/02/24 06:00 97.9 F 72 16 118/72 97 09/02/24 00:25 97.4 F L 75 19 116/65 98 09/01/24 20:13 97.8 F 107 H 18 115/67 94 L Intake and Output 09/01/24 09/02/24 09/02/24 22:59 06:59 14:59 Output Total 600 Balance -600 Output: Urine 600 Other: Weight 83.915 kg 83.915 kg GENERAL DESCRIPTION: Middle-age male lying in bed, no distress. No tachypnea or accessory muscle of respiration use. HEENT: Shows Pallor , no scleral icterus. Oral mucous membrane is dry. NECK: Trachea central, no thyromegaly. LUNGS: Unlabored breathing. Clear to auscultation anteriorly. No wheeze or crackle. HEART: S1, S2, regular rate and rhythm. No loud murmur ABDOMEN: Soft, no tenderness , guarding or rigidity, no organomegaly EXTREMITIES: Right big toe amputation site wound is currently healed no swelling redness or any drainage SKIN: No rash, no masses palpable. NEUROLOGICAL: The patient is awake, alert, oriented x3, mood and affect normal. Results CBC & Chem 7: 09/04/24 03:49 09/04/24 03:49 Labs: Abnormal Lab Results - Last 24 Hours (Table) 09/01/24 09/01/24 09/02/24 Range/Units 21:14 21:14 02:23 WBC 10.10 H (4.50-10.00) 10*3/uL RBC 4.39 L (4.40-5.60) 10*6/uL Hgb 12.7 L (13.0-17.0) g/dL Hct 38.3 L (39.6-50.0) % Lymphocytes # 5.68 H (0.90-5.00) 10*3/uL Sodium 133 L (137-145) mmol/L Glucose 243 H (74-99) mg/dL POC Glucose (mg/dL) (70-110) mg/dL Alkaline Phosphatase 181 H (38-126) U/L Urine Glucose (UA) 1+ H (Negative) U Marijuana (THC) Screen Detected H (NotDetected) 09/02/24 Range/Units 12:28 WBC (4.50-10.00) 10*3/uL RBC (4.40-5.60) 10*6/uL Hgb (13.0-17.0) g/dL Hct (39.6-50.0) % Lymphocytes # (0.90-5.00) 10*3/uL Sodium (137-145) mmol/L Glucose (74-99) mg/dL POC Glucose (mg/dL) 453 H (70-110) mg/dL Alkaline Phosphatase (38-126) U/L Urine Glucose (UA) (Negative) U Marijuana (THC) Screen (NotDetected) Assessment and Plan Plan: 1patient with recent history of right big toe amputation site wound dehiscence with underlying osteomyelitis culture positive for MSSA and strep for the patient was discharged on IV cefazolin and oral Flagyl now presenting to the hospital with acute mental status changes and confusion clinical doubt related to the antibiotic as the patient has been on this antibiotic more than a month and is currently approaching the end of his therapy has been complaining of some nausea which could be related to the Flagyl and can be discontinued has a negative culture were negative 2-I will check his inflammatory markers 3-plan will be to finish his total of 6-week course of therapy however the patient is currently at the end of his antibiotics with no plan to extend his antibiotic any further Multiple question concern answered We will follow on clinical condition and cultures to further adjust medication if needed Thank you for this consultation we will follow the patient along with you Dictation was produced using [employer] dictation software. please excuse any grammatical, word or spelling errors. Time with Patient: Greater than 30
--- NOTE | 2024-09-02 22:39 | P.HPIM ---
History of Present Illness H&P Date: 09/02/24 Chief Complaint: Altered mental status Patient is a 58-year-old male with a past medical history of asthma, coronary artery history of stent placement, history of CML, hypertension, hyperlipidemia, diabetes type 2 on Ozempic, osteoarthritis, obstructive sleep apnea not requi ring CPAP since weight loss, hypothyroidism, anxiety and history of marijuana use was brought to the hospital due to altered mental status. Patient states that at around 6:45 PM became more confused and altered. Patient came out of shower confused. As per his ride he began having a repeat questioning and some slurred speech. Patient states that he feels as if he is in a fog. Denied any fall or head injuries. No prior history of stroke. Denied any focal weakness. No fever no chills. No nausea vomiting or blood. Diarrhea. Patient is on antibiotics/cefazolin for foot infection as per ID recommendations. Patient does have PICC line. Denied any tenderness or pain or discharge at the PICC line site insertion site. Chest x-ray showed no acute cardiopulmonary process EKG showed sinus tachycardia CT head showed no acute intracranial process. Laboratory data showed WBC 10.1 hemoglobin 12.7 platelets 386, sodium 133 potassium 4.7 chloride 98 bicarb is 28 BUN 17 and creatinine 0.98 and blood sugar 243 liver exam showed alk phos 181 troponin 0.012 and urinalysis negative: Infection. UDS is positive for marijuana. Otherwise patient denies any recent marijuana use. Review of Systems Complete review of systems could not be obtained from the patient except as per HPI Past Medical History Past Medical History: Asthma, Coronary Artery Disease (CAD), Cancer, Chest Pain / Angina, Diabetes Mellitus, Hyperlipidemia, Hypertension, Osteoarthritis (OA), Pneumonia, Sleep Apnea/CPAP/BIPAP, Thyroid Disorder, Vascular Disorder Additional Past Medical History / Comment(s): CML- immmunosuppressed, carpal tunnel bilaterally, chronic dry mucosa from the [id number] disease (especially of the eyes and oral cavity). abdominal hernia, no cpap used since wt loss, sleeps elevated, sepsis after dog bite to hand 2020. seasonal allergies, , recent SOB. [place] seen on stress test per pt. ( 2 weeks ago), c/o left sided neck pain, "it's the vein in that side of my neck", has had some N/V this week, will get nauseated occasionally anyway but seems more frequent this week, recent adm. [facility] for coronary stent, tired, SOB w/exertion History of Any Multi-Drug Resistant Organisms: None Reported Past Surgical History: Heart Catheterization With Stent, Joint Replacement Additional Past Surgical History / Comment(s): BONE MARROW TRANSPLANT 2006, Lt KNEE arthroscopy, left knee REPLACEMENT, SEPTAL SURG, BMTs bilateral ears, h emorrhoidectomy, colonoscopy, vasectomy, aortogram, atherectomy with balloon angioplasty 08/25/17. stent in legs 2020, recent card. cath Past Anesthesia/Blood Transfusion Reactions: No Reported Reaction Additional Past Anesthesia/Blood Transfusion Reaction / Comment(s): Pt has received blood without reaction. Mom had problems with dyes. Date of Last Stent Placement:: 08/11/23 Past Psychological History: Anxiety Additional Psychological History / Comment(s): Pt resides with his spouse and 2 grown children. He is independent. He uses no assistive device. He has DEDE an d his CPAP is broken so he is not using it at this time. He drives. 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 Was a tobacco smoker briefly more than 20 years ago. No significant alcohol use. No recreational drugs use. No experience. No recent travel history. No animal exposures. Smoking Status: Never smoker Past Alcohol Use History: None Reported Additional Past Alcohol Use History / Comment(s): Quit smoking 25 yrs ago, smoked only socially. Pt stated he has not had alcohol since jan 2024 Past Drug Use History: None Reported, Marijuana Additional Drug Use History / Comment(s): cbd oil, pt aware not to use today - Past Family History Father Family Medical History: Coronary Artery Disease (CAD), Pulmonary Embolus Additional Family Medical History / Comment(s): cabg Mother Family Medical History: Dementia Additional Family Medical History / Comment(s): Mother at age 72yrs. Daughter(s) Family Medical History: Blood Disorder Additional Family Medical History / Comment(s): "they just keep bleeding' both daughters Medications and Allergies Home Medications Medication Instructions Recorded Confirmed Type Aspirin 81 mg PO DAILY 02/02/18 09/02/24 History metFORMIN HCL [Glucophage Xr] 750 mg PO BID 09/26/20 09/02/24 History Furosemide [Lasix] 40 mg PO DAILY 08/10/23 09/02/24 History Potassium Chloride [K-Tab ER] 20 meq PO HS 08/10/23 09/02/24 History Semaglutide [Ozempic] 1 mg SQ WE 08/10/23 09/02/24 History Cyclobenzaprine [Flexeril] 5 mg PO BID PRN 08/11/23 09/02/24 History Nitroglycerin Sl Tabs [Nitrostat] 0.4 mg SUBLINGUAL Q5M PRN #25 tab 08/12/23 09/02/24 Rx Evolocumab [Repatha Sureclick] 140 mg SQ Q14D 08/18/23 09/02/24 History Prasugrel [Effient] 10 mg PO DAILY #90 tab 08/21/23 09/02/24 Rx Spironolactone 25 mg PO DAILY 05/11/24 09/02/24 History Escitalopram [Lexapro] 20 mg PO HS 06/09/24 09/02/24 History Gabapentin 300 mg PO BID 06/09/24 09/02/24 History ondansetron HCL [Zofran] 8 mg PO TID PRN 06/09/24 09/02/24 History Atorvastatin [Lipitor] 40 mg PO HS 30 Days #30 tab 06/14/24 09/02/24 Rx ceFAZolin [Kefzol] 2 gm IVP Q8HR #120 each 07/28/24 09/02/24 Rx metroNIDAZOLE [Flagyl] 500 mg PO TID #90 tab 07/28/24 09/02/24 Rx hydrALAZINE HCL 25 mg PO DAILY PRN 09/02/24 09/02/24 History Allergies Allergy/AdvReac Type Severity Reaction Status Date / Time Penicillins Allergy Unknown Verified 09/02/24 09:25 Childhood Physical Exam Vitals: Vital Signs Temp Pulse Pulse Resp BP BP Pulse Ox 09/02/24 13:27 97.9 F 70 19 159/80 96 09/02/24 07:45 97.5 F L 70 18 136/86 100 09/02/24 06:00 97.9 F 72 16 118/72 97 09/02/24 00:25 97.4 F L 75 19 116/65 98 09/01/24 20:13 97.8 F 107 H 18 115/67 94 L Intake and Output 09/02/24 09/02/24 09/02/24 06:59 14:59 22:59 Output Total 600 Balance -600 Output: Urine 600 Other: Weight 83.915 kg PHYSICAL EXAMINATION: Patient is lying in the bed,, no acute distress, awake alert and oriented.. HEENT: Normocephalic. Neck is supple. Pupils reactive. Nostrils clear. Oral cavity is moist. Neck reveals no JVD, carotid bruits, or thyromegaly. CHEST EXAMINATION: Trachea is central. Symmetrical expansion. Lung hess clear to auscultation and percussion. CARDIAC: Normal S1, S2 with no gallops. No murmurs ABDOMEN: Soft. Bowel sounds normal. No organomegaly. No abdominal bruits. Extremities: reveal no edema. No clubbing or cyanosis Neurologically awake, alert, oriented x 2-3. Able to move all extremities. No gross focal deficits noted Skin: No rash or skin lesions. Psychiatric: Coperative. Nonsuicidal Musculoskeletal: No joint swelling or deformity. Normal range of motion. Results CBC & Chem 7: 09/01/24 21:14 09/01/24 21:14 Labs: Abnormal Lab Results - Last 24 Hours (Table) 09/01/24 09/01/24 09/02/24 Range/Units 21:14 21:14 02:23 WBC 10.10 H (4.50-10.00) 10*3/uL RBC 4.39 L (4.40-5.60) 10*6/uL Hgb 12.7 L (13.0-17.0) g/dL Hct 38.3 L (39.6-50.0) % Lymphocytes # 5.68 H (0.90-5.00) 10*3/uL Sodium 133 L (137-145) mmol/L Glucose 243 H (74-99) mg/dL POC Glucose (mg/dL) (70-110) mg/dL Alkaline Phosphatase 181 H (38-126) U/L Urine Glucose (UA) 1+ H (Negative) U Marijuana (THC) Screen Detected H (NotDetected) 09/02/24 Range/Units 12:28 WBC (4.50-10.00) 10*3/uL RBC (4.40-5.60) 10*6/uL Hgb (13.0-17.0) g/dL Hct (39.6-50.0) % Lymphocytes # (0.90-5.00) 10*3/uL Sodium (137-145) mmol/L Glucose (74-99) mg/dL POC Glucose (mg/dL) 453 H (70-110) mg/dL Alkaline Phosphatase (38-126) U/L Urine Glucose (UA) (Negative) U Marijuana (THC) Screen (NotDetected) Thrombosis Risk Factor Assmnt - DVT/VTE Prophylaxis DVT/VTE Prophylaxis: Pharmacologic Prophylaxis ordered - Choose All That Apply Any of the Below Risk Factors Present?: Yes Each Factor Represents 1 point: Age 41-60 years Other Risk Factors: No Other congenital or acquired thrombophilia - If yes, enter type in comment: No Thrombosis Risk Factor Assessment Total Risk Factor Score: 1 Thrombosis Risk Factor Assessment Level: Low Risk Assessment and Plan Assessment: Altered mental status possible medication induced encephalopathy. Patient is on cefazolin for foot infection with PICC line. UDS also positive for marijuana. Mentation is improving. Hyperglycemia with uncontrolled diabetes type 2. Patient is on Ozempic Hypertension Hyperlipidemia Osteoarthritis Obstructive sleep apnea not using CPAP since weight loss Hypothyroidism Anxiety UDS positive for marijuana History of CML status post bone marrow transplant in 2006 DVT prophylaxis with heparin subcu Plan: Patient will be continued on gentle IV hydration. Started back on medications and ID and neurology consult. EEG was ordered to look for seizures activity. MRI of the brain to rule TIA/CVA. Follow-up TSH and B12 levels. Start back on home medications. Insulin regimen with sliding scale and titrate dose. Continue to follow closely. Time with Patient: Greater than 30
[2024-09-03] MEDS: HEPARIN SODIUM,PORCINE 5,000 UNIT/ML 1 ML VIAL SQ SCH (00:50)
[2024-09-03 07:04] LABS: Glucose,Whole Blood 149 mg/dL (70-110)
[2024-09-03 07:49] LABS: African American GFR (CKD) >90 (>60 ml/min/1.73 sqM); Anion Gap 6 mmol/L; Blood Urea Nitrogen 11 mg/dL (9-20); C Reactive Protein <0.5 mg/dL (<1.0); Calcium 9.4 mg/dL (8.4-10.2); Carbon Dioxide 27 mmol/L (22-30); Chloride 103 mmol/L (98-107); Glucose 148 mg/dL (74-99); Non-African American GFR(CKD) >90 (>60 ml/min/1.73 sqM); Potassium 4.4 mmol/L (3.5-5.1); Sodium 136 mmol/L (137-145)
[2024-09-03 07:50] LABS: Basophils # (A) 0.09 10*3/uL (0.00-0.10); Basophils % (A) 0.9 %; Eosinophils # (A) 0.28 10*3/uL (0.04-0.35); Eosinophils % (A) 2.8 %; HCT 35.4 % (39.6-50.0); HGB 11.8 g/dL (13.0-17.0); Lymphocytes % (A) 49.5 %; MCH 28.9 pg (27.0-32.0); MCHC 33.3 g/dL (32.0-37.0); MCV 86.8 fL (80.0-97.0); Mean Platelet Volume 9.1 fL (9.5-12.2); Monocytes % (A) 8.8 %; Neutrophils # (A) 3.81 10*3/uL (1.80-7.70); Neutrophils % (A) 37.4 %; Platelet Count 355 10*3/uL (140-440); RBC 4.08 10*6/uL (4.40-5.60); RDW 17.6 % (11.5-14.5); WBC 10.17 10*3/uL (4.50-10.00)
[2024-09-03 07:55] LABS: Lymphocytes # (A) 5.03 10*3/uL (0.90-5.00)
[2024-09-03] MEDS: FUROSEMIDE 40 MG TAB PO SCH (09:18)
[2024-09-03] MEDS: ASPIRIN 81 MG PO SCH (09:18)
[2024-09-03] MEDS: ONDANSETRON ODT 8 MG TAB.RAPDIS PO PRN (09:46)
[2024-09-03 12:32] LABS: Glucose,Whole Blood 218 mg/dL (70-110)
--- NOTE | 2024-09-03 12:42 | P.PN ---
Subjective Progress Note Date: 09/03/24 I am following up with the patient and he states he is doing well. He is pending to have MRI of the brain. No further confusion. Objective - Vital Signs Vital signs: Vital Signs Temp 98.2 F 09/03/24 07:00 Pulse 74 09/03/24 12:25 Resp 16 09/03/24 12:25 BP 117/60 09/03/24 12:25 Pulse Ox 95 09/03/24 12:25 FiO2 Intake & Output 09/02/24 09/03/24 09/03/24 18:59 06:59 18:59 Intake Total 540 Balance 540 Weight 83.915 kg Intake: Oral 540 Other: # Voids 1 3 - Exam GENERAL: The patient is lying in bed and is not in acute distress. NEUROLOGICAL: Higher mental function: The patient is awake, alert, oriented to self, place and time. Patient was able to state his date of anniversary and the patient's stated that was correct. Patient is following commands. No aphasia and no neglect. Cranial nerves: The pupils are round, equal and reactive to light and accommodation. Visual hess are full to confrontation throughout. Extraocular movement is intact no nystagmus is noted. Facial sensation is normal to touch throughout. The facial strength is normal throughout. Hearing is normal bilaterally to hand rub. Tongue is midline and moved [id number] without any difficulty. No dysarthria is noted. Shoulder shrug is normal bilaterally. Motor: The strength is 5 over 5 throughout. Normal tone and bulk. Cerebellum: Normal finger to nose bilaterally. Sensation: Sensation is normal to touch throughout. Reflexes (right/left): 2+ throughout. Plantars are downgoing bilaterally. Some of the work-up during this hospital visit consisted of: On initial presentation glucose was 243 and most recent glucose is 453 Ammonia level is less than 9 B12: 490 TSH: 1.190 Urine direction is positive for marijuana otherwise the rest is not detected. CT of the head is reported as no acute intracranial process. I personally reviewed the CT and agree with the report Routine EEG: Is abnormal. The background slowing is suggestive of moderate encephalopathy. There is no focal slowing, epileptiform discharge or seizure. - Labs CBC & Chem 7: 09/03/24 07:15 09/03/24 07:15 Labs: Abnormal Lab Results - Last 24 Hours (Table) 09/02/24 09/02/24 09/03/24 Range/Units 17:04 20:18 07:03 WBC (4.50-10.00) 10*3/uL RBC (4.40-5.60) 10*6/uL Hgb (13.0-17.0) g/dL Hct (39.6-50.0) % RDW (11.5-14.5) % MPV (9.5-12.2) fL Immature Gran # (0.00-0.04) 10*3/uL Lymphocytes # (0.90-5.00) 10*3/uL Sodium (137-145) mmol/L Glucose (74-99) mg/dL POC Glucose (mg/dL) 209 H 163 H 149 H (70-110) mg/dL 09/03/24 09/03/24 09/03/24 Range/Units 07:15 07:15 12:29 WBC 10.17 H (4.50-10.00) 10*3/uL RBC 4.08 L (4.40-5.60) 10*6/uL Hgb 11.8 L (13.0-17.0) g/dL Hct 35.4 L (39.6-50.0) % RDW 17.6 H (11.5-14.5) % MPV 9.1 L (9.5-12.2) fL Immature Gran # 0.06 H (0.00-0.04) 10*3/uL Lymphocytes # 5.03 H (0.90-5.00) 10*3/uL Sodium 136 L (137-145) mmol/L Glucose 148 H (74-99) mg/dL POC Glucose (mg/dL) 218 H (70-110) mg/dL Assessment and Plan Assessment: This is a 58-year-old gentleman who has a right fifth digit resection and is on IV antibiotics through PICC line followed up with ID who presents because of episode of confusion yesterday not knowing how to use a spoon and repeating the same questions. Acute transient encephalopathy unknown exact etiology. Possible due to medicati on induced/cephalosporin induced encephalopathy. Patient was on cefazolin. CT of the head is unremarkable. Patient does not have any focal deficit History of CML status post bone marrow transplant in 2007 Diabetes mellitus Recent low blood pressure according to the but in our facility is normal Plan: MRI of the brain with and without is scheduled today per nurse. I consulted ID for the concern that the medication is the culprit of his confusion Will defer the rest of the medical management to primary and other specialist If the MRI Brain is negative for acute or subacute process then patient is clear from neurological perspective. Time with Patient: Less than 30
[2024-09-03 14:01] LABS: Erythrocyte Sedimentation Rate 18 mm/Hr (0-20)
[2024-09-03 17:03] LABS: Glucose,Whole Blood 246 mg/dL (70-110)
--- NOTE | 2024-09-03 20:09 | MR ---
EXAMINATION TYPE: MR brain wo/w con DATE OF EXAM: 09/03/2024 7:56 PM COMPARISON: CT brain 09/01/2024 CLINICAL INDICATION: Male, 59 years old with history of dysarthria and confusion, dysarthria and conf usion TECHNIQUE: Multiplanar, multiecho imaging on a 3.0 Nano magnet is performed through the brain. Stud y is performed within 24 hours of arrival to the hospital.Multiplanar, multiecho imaging on a 3.0 Preethi la magnet is performed through the knee. IV Contrast: 8.5 mL Gadobutrol (None, if empty) FINDINGS: The craniovertebral junction is normal. The pituitary is normal. Diffusion-weighted imaging is performed. No abnormal hyperintensity is present to suggest an acute i ntracranial infarct or acute ischemic change. Signal through the brain appears normal. Following contrast, no suspicious enhancement is evident Ventricles and sulci are appropriate for the patient age. There is fluid-filled right mastoid air cells. Correlate for acute right mastoiditis. Some mild mucosal thickening is within the maxillary sinuses medially. Ethmoid air cell mucosal thick ening is present. IMPRESSION: 1. No acute intracranial process pre- or post- contrast MRI. 2. Clinical correlation recommended for acute right mastoiditis. [facility], , 09/03/2024 8:07 PM
[2024-09-03 20:18] LABS: Glucose,Whole Blood 213 mg/dL (70-110)
[2024-09-04 07:05] LABS: Glucose,Whole Blood 144 mg/dL (70-110)
[2024-09-04 09:18] LABS: BUN/Creat Ratio 9.78 Ratio (12.00-20.00); Blood Urea Nitrogen 8.8 mg/dL (9.0-27.0); Carbon Dioxide 27.7 mmol/L (21.6-31.8); Chloride 104 mmol/L (96-109); Glucose 132 mg/dL (70-110); Potassium 5.1 mmol/L (3.5-5.5); Sodium 140 mmol/L (135-145)
[2024-09-04 10:01] LABS: HCT 37.2 % (39.6-50.0); HGB 11.8 g/dL (13.0-17.0); MCH 28.4 pg (27.0-32.0); MCHC 31.7 g/dL (32.0-37.0); MCV 89.4 FL (80.0-97.0); Mean Platelet Volume 9.2 FL (9.5-12.2); NRBC Per 100 WBC 0 X 10*3/uL (0.00-0.01); Platelet Count 383 X 10*3/uL (140-440); RBC 4.16 X 10*6/uL (4.40-5.60); RDW 18.3 % (11.5-14.5); WBC 9.87 X 10*3/uL (4.50-10.00)
[2024-09-04 11:26] LABS: Basophils # (M) 0 X 10*3/uL (0.00-0.10); Lymphocytes # (M) 5.82 X 10*3/uL (0.90-5.00); Neutrophils # (M) 3.55 X 10*3/uL (1.80-7.70); Neutrophils % (M) 36 %; RBC Morphology Normal (Normal)
--- NOTE | 2024-09-04 12:00 | P.PN ---
Subjective Progress Note Date: 09/04/24 I am following-up with the patient and no further episodes of confusion or any new neurological issues. Denies of any headache. Objective - Vital Signs Vital signs: Vital Signs Temp 97.9 F 09/04/24 06:59 Pulse 67 09/04/24 08:00 Resp 16 09/04/24 08:00 BP 155/75 09/04/24 06:59 Pulse Ox 97 09/04/24 06:59 FiO2 Intake & Output 09/03/24 09/04/24 09/04/24 18:59 06:59 18:59 Intake Total 1080 Balance 1080 Intake: Oral 1080 Other: # Voids 3 3 # Bowel Movements 0 - Exam GENERAL: The patient is lying in bed and is not in acute distress. NEUROLOGICAL: Higher mental function: The patient is awake, alert, oriented to self, place and time. Patient was able to state his date of anniversary and the patient's stated that was correct. Patient is following commands. No aphasia and no neglect. Cranial nerves: The pupils are round, equal and reactive to light and accommodation. Visual hess are full to confrontation throughout. Extraocular movement is intact no nystagmus is noted. Facial sensation is normal to touch throughout. The facial strength is normal throughout. Hearing is normal bilaterally to hand rub. Tongue is midline and moved [id number] without any difficulty. No dysarthria is noted. Shoulder shrug is normal bilaterally. Motor: The strength is 5 over 5 throughout. Normal tone and bulk. Cerebellum: Normal finger to nose bilaterally. Sensation: Sensation is normal to touch throughout. Reflexes (right/left): 2+ throughout. Plantars are downgoing bilaterally. Some of the work-up during this hospital visit consisted of: On initial presentation glucose was 243 and most recent glucose is 453--> improved Ammonia level is less than 9 B12: 490 TSH: 1.190 Urine direction is positive for marijuana otherwise the rest is not detected. CT of the head is reported as no acute intracranial process. I personally reviewed the CT and agree with the report Routine EEG: Is abnormal. The background slowing is suggestive of moderate encephalopathy. There is no focal slowing, epileptiform discharge or seizure. MRI Brain: Is negative for acute intracranial process pre or post constrast MRI. Clinical correlation recommended for acute right mastoiditis. - Labs CBC & Chem 7: 09/04/24 03:49 09/04/24 03:49 Labs: Abnormal Lab Results - Last 24 Hours (Table) 09/03/24 09/03/24 09/03/24 Range/Units 07:15 12:29 17:00 RBC (4.40-5.60) X 10*6/uL Hgb (13.0-17.0) g/dL Hct (39.6-50.0) % MCHC (32.0-37.0) g/dL RDW (11.5-14.5) % MPV (9.5-12.2) FL Lymphocytes # (Manual) (0.90-5.00) X 10*3/uL BUN (9.0-27.0) mg/dL BUN/Creatinine Ratio (12.00-20.00) Ratio Glucose (70-110) mg/dL POC Glucose (mg/dL) 218 H 246 H (70-110) mg/dL Hemoglobin A1c 8.8 H (<=6.0) % 09/03/24 09/04/24 09/04/24 Range/Units 20:15 03:49 03:49 RBC 4.16 L (4.40-5.60) X 10*6/uL Hgb 11.8 L (13.0-17.0) g/dL Hct 37.2 L (39.6-50.0) % MCHC 31.7 L (32.0-37.0) g/dL RDW 18.3 H (11.5-14.5) % MPV 9.2 L (9.5-12.2) FL Lymphocytes # (Manual) 5.82 H (0.90-5.00) X 10*3/uL BUN 8.8 L (9.0-27.0) mg/dL BUN/Creatinine Ratio 9.78 L (12.00-20.00) Ratio Glucose 132 H (70-110) mg/dL POC Glucose (mg/dL) 213 H (70-110) mg/dL Hemoglobin A1c (<=6.0) % 09/04/24 Range/Units 07:00 RBC (4.40-5.60) X 10*6/uL Hgb (13.0-17.0) g/dL Hct (39.6-50.0) % MCHC (32.0-37.0) g/dL RDW (11.5-14.5) % MPV (9.5-12.2) FL Lymphocytes # (Manual) (0.90-5.00) X 10*3/uL BUN (9.0-27.0) mg/dL BUN/Creatinine Ratio (12.00-20.00) Ratio Glucose (70-110) mg/dL POC Glucose (mg/dL) 144 H (70-110) mg/dL Hemoglobin A1c (<=6.0) % Assessment and Plan Assessment: This is a 58-year-old gentleman who has a right fifth digit resection and is on IV antibiotics through PICC line followed up with ID who presents because of episode of confusion yesterday not knowing how to use a spoon and repeating the same questions. Acute transient encephalopathy unknown exact etiology. Possible due to medication induced/cephalosporin induced encephalopathy. Patient was on cefazolin. MRI Brain is negative for stroke or enhancement but was concerning for ?right mastoiditis. Patient does not have any focal deficit EEG is negative for seizure or discharges. History of CML status post bone marrow transplant in 2006 Diabetes mellitus Recent low blood pressure according to the but in our facility is normal Plan: Will defer the management of ?right mastoiditis to primary team and I.D. Will defer the rest of the medical management to primary and other specialist There is no further neurological work-up. Will sign off. Please reconsult if needed. Time with Patient: Less than 30
[2024-09-04 12:06] LABS: Glucose,Whole Blood 159 mg/dL (70-110)
[2024-09-04 12:46] VITALS: BP 162/75; PULSE 66; TEMP 98.1
--- NOTE | 2024-09-04 16:40 | P.PN ---
Subjective Progress Note Date: 09/04/24 Principal diagnosis: There is a follow-up right foot osteomyelitis Patient is a 58-year-old male with a past medical history significant for Asthma, Coronary Artery Disease (CAD), Cancer, Chest Pain / Angina, Diabetes Mellitus, Hyperlipidemia, Hypertension, Osteoarthritis (OA), Pneumonia, Sleep Apnea/CPAP/BIPAP, Thyroid Disorder, Vascular Disorder, history of diabetic foot infection requiring amputation of his right big toe patient was subsequently admitted to the hospital with right big toe amputation site incision opening up with further workup which was evidence of osteomyelitis and local culture positive for MSSA and Streptococcus, for which the patient has been sent home on cefazolin 2 g every 8 hour along with oral Flagyl patient has been getting those antibiotic at home since 07/28/2024. Patient has been brought back to the hospital concerning for mental status changes with neurology concern for possible related to antibiotics prompting this consultation. On today's evaluation that is 09/04/2023, patient did have a temperature of 98 F this morning and denies having any chills, patient is on room air and breathing comfortably no chest pain or cough, the patient complaining of some nausea but vomiting abdominal pain or any diarrhea Patient white count of 10.17 sed rate is 18 creatinine 0.67 CRP is normal Objective - Vital Signs Vital signs: Vital Signs Temp 98.2 F 09/03/24 07:00 Pulse 74 09/03/24 12:25 Resp 16 09/03/24 12:25 BP 117/60 09/03/24 12:25 Pulse Ox 95 09/03/24 12:25 FiO2 Intake & Output 09/02/24 09/03/24 09/03/24 18:59 06:59 18:59 Intake Total 540 Balance 540 Weight 83.915 kg Intake: Oral 540 Other: # Voids 1 3 - Exam GENERAL DESCRIPTION: Middle-age male lying in bed in no distress RESPIRATORY SYSTEM: Unlabored breathing , decreased breath sounds at bases HEART: S1 S2 regular rate and rhythm , ABDOMEN: Soft , no tenderness EXTREMITIES: Right big toe amputation site wound is currently healed - Labs CBC & Chem 7: 09/04/24 03:49 09/04/24 03:49 Labs: Abnormal Lab Results - Last 24 Hours (Table) 09/02/24 09/02/24 09/03/24 Range/Units 17:04 20:18 07:03 WBC (4.50-10.00) 10*3/uL RBC (4.40-5.60) 10*6/uL Hgb (13.0-17.0) g/dL Hct (39.6-50.0) % RDW (11.5-14.5) % MPV (9.5-12.2) fL Immature Gran # (0.00-0.04) 10*3/uL Lymphocytes # (0.90-5.00) 10*3/uL Sodium (137-145) mmol/L Glucose (74-99) mg/dL POC Glucose (mg/dL) 209 H 163 H 149 H (70-110) mg/dL Hemoglobin A1c (<=6.0) % 09/03/24 09/03/24 09/03/24 Range/Units 07:15 07:15 07:15 WBC 10.17 H (4.50-10.00) 10*3/uL RBC 4.08 L (4.40-5.60) 10*6/uL Hgb 11.8 L (13.0-17.0) g/dL Hct 35.4 L (39.6-50.0) % RDW 17.6 H (11.5-14.5) % MPV 9.1 L (9.5-12.2) fL Immature Gran # 0.06 H (0.00-0.04) 10*3/uL Lymphocytes # 5.03 H (0.90-5.00) 10*3/uL Sodium 136 L (137-145) mmol/L Glucose 148 H (74-99) mg/dL POC Glucose (mg/dL) (70-110) mg/dL Hemoglobin A1c 8.8 H (<=6.0) % 09/03/24 Range/Units 12:29 WBC (4.50-10.00) 10*3/uL RBC (4.40-5.60) 10*6/uL Hgb (13.0-17.0) g/dL Hct (39.6-50.0) % RDW (11.5-14.5) % MPV (9.5-12.2) fL Immature Gran # (0.00-0.04) 10*3/uL Lymphocytes # (0.90-5.00) 10*3/uL Sodium (137-145) mmol/L Glucose (74-99) mg/dL POC Glucose (mg/dL) 218 H (70-110) mg/dL Hemoglobin A1c (<=6.0) % Assessment and Plan (1) Foot osteomyelitis, right Status: Acute Code(s): M86.9 - OSTEOMYELITIS, UNSPECIFIED SNOMED Code(s): 2637673690186172 (2) Diabetic infection of right foot Status: Acute Code(s): E11.628 - TYPE 2 DIABETES MELLITUS WITH OTHER SKIN COMPLICATIONS; L08.9 - LOCAL INFECTION OF THE SKIN AND SUBCUTANEOUS TISSUE, UNSP SNOMED Code(s): 100844681 (3) Penicillin allergy Status: Acute Code(s): Z88.0 - ALLERGY STATUS TO PENICILLIN SNOMED Code(s): 77778917 Plan: 1patient with recent history of right big toe amputation site wound dehiscence with underlying osteomyelitis culture positive for MSSA and strep for the patient was discharged on IV cefazolin and oral Flagyl now presenting to the hospital with acute mental status changes and confusion clinical doubt related to the antibiotic as the patient has been on this antibiotic more than a month and is currently approaching the end of his therapy has been complaining of some nausea which could be related to the Flagyl and was subsequently discontinued 2-patient did have normal inflammatory markers 3-patient to continue with cefazolin as the patient neurological symptoms has r esolved without discontinuation of antibiotics and more likely not related to antibiotics this was explained to the patient in layman term Dictation was produced using [employer] dictation software. please excuse any grammatical, word or spelling errors. Time with Patient: Less than 30
--- NOTE | 2024-09-04 16:41 | P.PN ---
Subjective Progress Note Date: 09/04/24 Principal diagnosis: There is a follow-up right foot osteomyelitis Patient is a 58-year-old male with a past medical history significant for Asthma, Coronary Artery Disease (CAD), Cancer, Chest Pain / Angina, Diabetes Mellitus, Hyperlipidemia, Hypertension, Osteoarthritis (OA), Pneumonia, Sleep Apnea/CPAP/BIPAP, Thyroid Disorder, Vascular Disorder, history of diabetic foot infection requiring amputation of his right big toe patient was subsequently admitted to the hospital with right big toe amputation site incision opening up with further workup which was evidence of osteomyelitis and local culture positive for MSSA and Streptococcus, for which the patient has been sent home on cefazolin 2 g every 8 hour along with oral Flagyl patient has been getting those antibiotic at home since 07/28/2024. Patient has been brought back to the hospital concerning for mental status changes with neurology concern for possible related to antibiotics prompting this consultation. On today's evaluation that is 09/04/2024, Patient is afebrile patient is currently on room air and denies having any shortness of breath, the patient denies any chest pain or cough, the patient denies any nausea vomiting did not have any abdominal pain and no diarrhea, did have resolution of his mental status back to normal. Patient white count is 9.87 creatinine 0.9 Objective - Vital Signs Vital signs: Vital Signs Temp 98.1 F 09/04/24 12:01 Pulse 66 09/04/24 12:01 Resp 16 09/04/24 12:01 BP 162/75 09/04/24 12:01 Pulse Ox 98 09/04/24 12:01 FiO2 Intake & Output 09/03/24 09/04/24 09/04/24 18:59 06:59 18:59 Intake Total 1080 Balance 1080 Intake: Oral 1080 Other: # Voids 3 3 # Bowel Movements 0 - Exam GENERAL DESCRIPTION: Middle-age male lying in bed in no distress RESPIRATORY SYSTEM: Unlabored breathing , decreased breath sounds at bases HEART: S1 S2 regular rate and rhythm , ABDOMEN: Soft , no tenderness EXTREMITIES: Right big toe amputation site wound is currently healed - Labs CBC & Chem 7: 09/04/24 03:49 09/04/24 03:49 Labs: Abnormal Lab Results - Last 24 Hours (Table) 09/03/24 09/03/24 09/04/24 Range/Units 17:00 20:15 03:49 RBC 4.16 L (4.40-5.60) X 10*6/uL Hgb 11.8 L (13.0-17.0) g/dL Hct 37.2 L (39.6-50.0) % MCHC 31.7 L (32.0-37.0) g/dL RDW 18.3 H (11.5-14.5) % MPV 9.2 L (9.5-12.2) FL Lymphocytes # (Manual) 5.82 H (0.90-5.00) X 10*3/uL BUN (9.0-27.0) mg/dL BUN/Creatinine Ratio (12.00-20.00) Ratio Glucose (70-110) mg/dL POC Glucose (mg/dL) 246 H 213 H (70-110) mg/dL 09/04/24 09/04/24 09/04/24 Range/Units 03:49 07:00 12:04 RBC (4.40-5.60) X 10*6/uL Hgb (13.0-17.0) g/dL Hct (39.6-50.0) % MCHC (32.0-37.0) g/dL RDW (11.5-14.5) % MPV (9.5-12.2) FL Lymphocytes # (Manual) (0.90-5.00) X 10*3/uL BUN 8.8 L (9.0-27.0) mg/dL BUN/Creatinine Ratio 9.78 L (12.00-20.00) Ratio Glucose 132 H (70-110) mg/dL POC Glucose (mg/dL) 144 H 159 H (70-110) mg/dL Assessment and Plan (1) Diabetic infection of right foot Status: Acute Code(s): E11.628 - TYPE 2 DIABETES MELLITUS WITH OTHER SKIN COMPLICATIONS; L08.9 - LOCAL INFECTION OF THE SKIN AND SUBCUTANEOUS TISSUE, UNSP SNOMED Code(s): 827262074 (2) Foot osteomyelitis, right Status: Acute Code(s): M86.9 - OSTEOMYELITIS, UNSPECIFIED SNOMED Code(s): 5952903162795431 (3) Penicillin allergy Status: Acute Code(s): Z88.0 - ALLERGY STATUS TO PENICILLIN SNOMED Code(s): 23005976 Plan: 1patient with recent history of right big toe amputation site wound dehiscence with underlying osteomyelitis culture positive for MSSA and strep for the patient was discharged on IV cefazolin and oral Flagyl now presenting to the hospital with acute mental status changes and confusion clinical doubt related to the antibiotic as the patient has been on this antibiotic more than a month and is currently approaching the end of his therapy has been complaining of some nausea which could be related to the Flagyl and was subsequently discontinued 2-patient did have normal inflammatory markers 3-patient to continue with cefazolin to finish 6-week course of therapy as the patient did have few doses of antibiotic left at home and close outpatient follow-up Dictation was produced using [employer] dictation software. please excuse any grammatical, word or spelling errors. Time with Patient: Less than 30
== END 2024-09-04 15:24 | disposition home or self-care (01) ==
LOC: EC 20:11 → 5NMEDONC 09-02 00:22
PROVIDERS: ADMIT Hospitalist; ATTEND Hospitalist
DX: G93.40 Encephalopathy, unspecified (principal); E11.65 Type 2 diabetes mellitus with hyperglycemia; E11.628 Type 2 diabetes mellitus with other skin complications; L08.9 Local infection of the skin and subcutaneous tissue, unspecified; I25.10 Atherosclerotic heart disease of native coronary artery without angina pectoris; E78.5 Hyperlipidemia, unspecified; I10 Essential (primary) hypertension; F41.9 Anxiety disorder, unspecified; G47.33 Obstructive sleep apnea (adult) (pediatric); E03.9 Hypothyroidism, unspecified; M19.90 Unspecified osteoarthritis, unspecified site; E11.69 Type 2 diabetes mellitus with other specified complication; M86.9 Osteomyelitis, unspecified; Z85.6 Personal history of leukemia; Z87.891 Personal history of nicotine dependence; Z89.411 Acquired absence of right great toe; Z94.81 Bone marrow transplant status; Z95.5 Presence of coronary angioplasty implant and graft; Z79.02 Long term (current) use of antithrombotics/antiplatelets; Z79.82 Long term (current) use of aspirin; Z79.84 Long term (current) use of oral hypoglycemic drugs; Z79.85 Long-term (current) use of injectable non-insulin antidiabetic drugs; Z79.899 Other long term (current) drug therapy; Z88.0 Allergy status to penicillin
CPT/HCPCS: 96361 ×3; 96365; 96366 ×2; 96372 ×2; 99285; 36415; 95816; 93005; 80053; 80048 ×2; 85652; 84443; 82607; 82140; 83605; 84484; 85025 ×3; 85610; 85730; 86140; 81003; 80306; 80320; 83036; 71046; 70450; 70553; G0378 ×3; J1644 ×2; J0690 ×3; A9585